=== PATIENT | female | born 1975 | race Caucasian/White ===

== ENCOUNTER 2016-08-25 19:41 | Inpatient (IN) | payer MEDICAID ==
[~2016-08-25] VITALS: Ht 157.5 cm; Wt 90.7 kg
[2016-08-25 20:37] LABS: BASOPHILS 0.5 % (0-2); EOSINOPHILS 1.2 % (0-7); HEMATOCRIT 46.5 % (36.0-48.0); HEMOGLOBIN 16.2 g/dL (12-16); IMMATURE GRANULOCYTES 0.4 % (0-5); LYMPHOCYTES 18.9 % (15-50); MCH 31.4 pg (26.0-34.0); MCHC 34.8 g/dL (31.0-37.0); MCV 90.1 fL (80.0-100.0); MEAN PLATELET VOLUME 11.2 fL (7.4-10.4); MONOCYTES 3.4 % (2-11); NEUTROPHILS 75.6 % (40-80); PLATELET COUNT 309 10x3/uL (130-400); RBC 5.16 10x6/uL (4.00-5.40); RDW 11.6 % (11.5-14.5); WBC 15.5 10x3/uL (4.8-10.8)
[2016-08-25 20:43] LABS: KETONE - SERUM NEGATIVE (NEGATIVE)
[2016-08-25 20:51] LABS: ALBUMIN 3.5 g/dL (3.4-5.0); ALKALINE PHOSPHATASE 137 U/L (46-116); ALT (SGPT) 17 U/L (10-68); BILIRUBIN - TOTAL 0.82 mg/dL (0.2-1.3); CALC OSMOLALITY 292 mosm/kg (275-300); CALCIUM 9.3 mg/dL (8.5-10.1); CARBON DIOXIDE 28.1 mmol/L (21.0-32.0); CHLORIDE - SERUM 96 mmol/L (98-107); CREATININE - SERUM 1.4 mg/dL (0.6-1.3); MAGNESIUM - SERUM 1.6 mg/dL (1.8-2.4); POTASSIUM - SERUM 4.1 mmol/L (3.5-5.1); PROTEIN - SERUM 7.9 g/dL (6.4-8.2); SODIUM 135 mmol/L (136-145); UREA NITROGEN 16 mg/dL (7-18); eGFR NON AFRICAN AMERICAN 44 mL/min (90-120)
[2016-08-25 20:59] LABS: GLUCOSE 499 mg/dL (74-106)
[2016-08-25 21:13] LABS: APPEARANCE HAZY (CLEAR); BILIRUBIN NEGATIVE (NEGATIVE); COLOR YELLOW (YELLOW); GLUCOSE 1000 mg/dL (NEGATIVE); KETONE LARGE mg/dL (NEGATIVE); LEUKOCYTE ESTERASE 2+ (NEGATIVE); NITRITE NEGATIVE (NEGATIVE); PROTEIN NEGATIVE (NEGATIVE); SPECIFIC GRAVITY 1.015 (1.005-1.020); UROBILINOGEN NORMAL (NORMAL)
[2016-08-25 21:15] LABS: BACTERIA MANY /hpf (NONE SEEN); MUCUS <1+ /lpf (NONE SEEN); RED CELLS - URINE 0-5 /hpf (0-5)
--- NOTE | 2016-08-26 01:45 | NUR ---
NOTIFIED BY PATIENT'S NIECE THAT THE PATIENT HAS BEEN LIVING WITH FAMILY WHO IS UNABLE TO TAKE CARE OF HER AT THIS TIME. THE PATIENT'S NIECE STATED THAT SHE GOES TO THE HOUSE OFTEN SHE CAN AND MAKE'S IT A POINT TO GO THERE EVERY THURSDAY, HOWEVER, FEELS THAT IT IS NOT ENOUGH. THE NIECE HAS WITNESSED THE PATIENT UNBATHED FOR SEVERAL MONTHS AT A TIME AND HAS BEEN COVERED IN "ROACHES AND MAGGOTS" UPON THE NIECE'S ARRIVAL. THE PATIENT AND THE NIECE ARE HOPING THAT THE PATIENT WILL BE PLACED IN A FPC FOR THE PATIENT TO RECEIVE THE HELP THAT SHE NEEDS.
[2016-08-26 04:31] VITALS: BP 101/64; BMI 36.6
--- NOTE | 2016-08-26 07:30 | NUR ---
RECIEVED PT DURING WALKING ROUNDS, PT RESTING COMFORTABLY IN BED WITH NO COMPLAINTS OF PAIN OR DISCOMFORT AT THIS TIME. ASSESSMENT DONE PER FLOWSHEET. BED IN LOW POSITION AND CALL LIGHT WITHIN REACH. WILL CONTINUE TO MONITOR.
[2016-08-26 09:30] VITALS: BP 110/49
[2016-08-26 09:34] LABS: BILIRUBIN - TOTAL 0.37 mg/dL (0.2-1.3); CALCIUM 8.8 mg/dL (8.5-10.1); CARBON DIOXIDE 26.6 mmol/L (21.0-32.0); PROTEIN - SERUM 6.2 g/dL (6.4-8.2)
[2016-08-26 09:35] LABS: ALBUMIN 2.6 g/dL (3.4-5.0); ANION GAP 11.4 mmol/L (8-16); BASOPHILS 0.7 % (0-2); CREATININE - SERUM 0.9 mg/dL (0.6-1.3); HEMATOCRIT 40.9 % (36.0-48.0); IMMATURE GRANULOCYTES 0.2 % (0-5); LYMPHOCYTES 47.3 % (15-50); MCH 30.9 pg (26.0-34.0); MCHC 34.2 g/dL (31.0-37.0); MCV 90.3 fL (80.0-100.0); MEAN PLATELET VOLUME 10.8 fL (7.4-10.4); MONOCYTES 4.3 % (2-11); NEUTROPHILS 44.5 % (40-80); PLATELET COUNT 264 10x3/uL (130-400); RBC 4.53 10x6/uL (4.00-5.40); RDW 11.5 % (11.5-14.5); WBC 9.9 10x3/uL (4.8-10.8)
--- NOTE | 2016-08-26 09:50 | NUR ---
ADMINISTERED ATIVAN PER ORDER FOR ANXIETY. PT TOLERATED WELL. BED IN LOW POSITION AND CALL LIGHT WITHIN REACH. WILL CONTINUE TO MONITOR.
[2016-08-26 13:54] VITALS: BP 110/50
[2016-08-26 16:23] VITALS: BP 120/54
[2016-08-26 16:56] LABS: UDS - AMPHET NEGATIVE QUAL (NEGATIVE); UDS - BARB NEGATIVE QUAL (NEGATIVE); UDS - BENZO NEGATIVE QUAL (NEGATIVE); UDS - COCAINE NEGATIVE QUAL (NEGATIVE); UDS - METH NEGATIVE QUAL (NEGATIVE); UDS - OPIATE NEGATIVE QUAL (NEGATIVE); UDS - PCP NEGATIVE QUAL (NEGATIVE); UDS - THC NEGATIVE QUAL (NEGATIVE)
[2016-08-26 20:00] VITALS: BP 100/55
--- NOTE | 2016-08-27 02:52 | NUR ---
PATIENT RESTING WITH EYES CLOSED AND NO VISIBLE SIGNS OF DISTRESS. BED IN LOWEST POSITION AND CALL LIGHT WITHIN REACH.
--- NOTE | 2016-08-27 03:34 | NUR ---
PATIENT WAS GIVEN A FULL BED BATH. BUTTOCKS WERE REDDENED AND BLANCHABLE, BUTT PASTE WAS APPLIED. MULTIPLE SORES NOTED, MOSTLY ON THE LEFT HIP/THIGH AREA. SKIN WAS RED AND CRACKING UNDER THE LEFT BREAST AND STARTING IN THE ABDOMINAL FOLDS.
[2016-08-27 04:00] VITALS: BP 119/77
[2016-08-27 06:34] LABS: BASOPHILS 0.6 % (0-2); EOSINOPHILS 2.4 % (0-7); HEMATOCRIT 39.1 % (36.0-48.0); HEMOGLOBIN 13.3 g/dL (12-16); IMMATURE GRANULOCYTES 0.2 % (0-5); LYMPHOCYTES 34.7 % (15-50); MCH 30.8 pg (26.0-34.0); MCV 90.5 fL (80.0-100.0); MONOCYTES 4.2 % (2-11); NEUTROPHILS 57.9 % (40-80); PLATELET COUNT 215 10x3/uL (130-400); RBC 4.32 10x6/uL (4.00-5.40); RDW 11.4 % (11.5-14.5); WBC 9.1 10x3/uL (4.8-10.8)
[2016-08-27 06:57] LABS: ALBUMIN 2.4 g/dL (3.4-5.0); ALKALINE PHOSPHATASE 85 U/L (46-116); ALT (SGPT) 12 U/L (10-68); CALCIUM 8.1 mg/dL (8.5-10.1); CHLORIDE - SERUM 106 mmol/L (98-107); CREATININE - SERUM 0.7 mg/dL (0.6-1.3); PROTEIN - SERUM 5.7 g/dL (6.4-8.2); SODIUM 138 mmol/L (136-145); UREA NITROGEN 12 mg/dL (7-18); eGFR NON AFRICAN AMERICAN > 90 mL/min (90-120)
[2016-08-27 07:04] LABS: CALC OSMOLALITY 282 mosm/kg (275-300); GLUCOSE 223 mg/dL (74-106); POTASSIUM - SERUM 3.9 mmol/L (3.5-5.1)
--- NOTE | 2016-08-27 07:30 | NUR ---
RECIEVED PT DURING WALKING ROUNDS. PT RESTING IN BED WITH COMPLAINTS OF PAIN OF A 8 ON SCALE OF 1-10. MEDICATION TO BE GIVEN PER ORDER. ASSESSMENT DONE PER FLOWSHEET. BED IN LOW POSITION AND CALL LIGHT WITHIN REACH. WILL CONTINUE TO MONITOR.
[2016-08-27 08:51] VITALS: BP 121/73
--- NOTE | 2016-08-27 10:05 | NUR ---
PT COMPLAINS OF CHEST PAIN AT THIS TIME, AND THAT SHE FELT THAT HER ANXIETY WAS GETTING WORSE, INFORMED PT THE NEED TO TAKE SLOW DEEP BREATHS AND TRY TO RELAX, INFORMED ELISEO CUMMINS AND DR. MELTON OF THIS AND THEY STATED THAT THEY WOULD BE AROUND TO SEE THE PT SOON. AFTER DEEP BREATHING PT WAS ABLE TO CALM DOWN SOME AND STATED SOME RELIEF. BED IN LOW POSITION AND CALL LIGHT WITHIN REACH. WILL CONTINUE TO MONITOR.
--- NOTE | 2016-08-27 12:30 | NUR ---
PT ASKED AGAIN AT THIS TIME FOR SOMETHING FOR MUSCLE SPASMS, INFORMED PT THAT I HAD ALREADY ASKED THE DOCTOR FOR MEDICATION AND THEN SHE INFORMED ME THAT SHE SPOKE WITH THE DOCTOR ABOUT IT ALSO WHEN THEY ROUNDED. INFORMED MU GARCIA RN. WILL CONTINUE TO MONITOR.
[2016-08-27 13:43] VITALS: Ht 157.5 cm; Wt 90.7 kg
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
[2016-08-27 16:38] VITALS: BP 93/61
[2016-08-27 20:00] VITALS: BP 110/69
[2016-08-28 04:00] VITALS: BP 109/59
[2016-08-28 05:30] LABS: BASOPHILS 0.7 % (0-2); EOSINOPHILS 2.7 % (0-7); HEMOGLOBIN 13.6 g/dL (12-16); IMMATURE GRANULOCYTES 0.4 % (0-5); LYMPHOCYTES 32.2 % (15-50); MCH 30.6 pg (26.0-34.0); MCV 90.1 fL (80.0-100.0); MONOCYTES 5.4 % (2-11); NEUTROPHILS 58.6 % (40-80); PLATELET COUNT 228 10x3/uL (130-400); RBC 4.44 10x6/uL (4.00-5.40); RDW 11.4 % (11.5-14.5); WBC 8.5 10x3/uL (4.8-10.8)
[2016-08-28 06:14] LABS: ALBUMIN 2.6 g/dL (3.4-5.0); ALKALINE PHOSPHATASE 87 U/L (46-116); ALT (SGPT) 13 U/L (10-68); CALC OSMOLALITY 283 mosm/kg (275-300); CALCIUM 8.7 mg/dL (8.5-10.1); CARBON DIOXIDE 27.7 mmol/L (21.0-32.0); CHLORIDE - SERUM 106 mmol/L (98-107); CREATININE - SERUM 0.7 mg/dL (0.6-1.3); GLUCOSE 185 mg/dL (74-106); POTASSIUM - SERUM 3.9 mmol/L (3.5-5.1); PROTEIN - SERUM 6.1 g/dL (6.4-8.2); SODIUM 141 mmol/L (136-145); eGFR NON AFRICAN AMERICAN > 90 mL/min (90-120)
[2016-08-28 06:17] LABS: UREA NITROGEN 7 mg/dL (7-18)
--- NOTE | 2016-08-28 07:30 | NUR ---
RESTING QUIETLY IN BED WITH EYES CLOSED. RESP EVEN,NONLABORED.
[2016-08-28 08:26] VITALS: BP 100/55
--- NOTE | 2016-08-28 09:15 | NUR ---
ASSESSMENT COMPLETE. IV TO L AC PATENT. CONTACT ISOLATION. WEAKNESS NOTED TO L LEG AND PARALYSIS NOTED TO L ARM. SCD'S IN USE TO BILAT LEGS. SCABBED AREAS NOTED TO BILAT ARMS AND LEGS. DENIES ANY NEEDS AT PRESENT.
--- NOTE | 2016-08-28 12:00 | NUR ---
RESTING QUIETLY IN BED.
[2016-08-28 12:46] VITALS: BP 113/67
--- NOTE | 2016-08-28 14:45 | NUR ---
COMPLAINING OF GENERALIZED PAIN. TYLENOL GIVEN.
[2016-08-28 16:11] VITALS: BP 119/62
--- NOTE | 2016-08-28 18:57 | NUR ---
RESTING QUIETLY WITH EYES CLOSED.
[2016-08-28 20:00] VITALS: BP 106/53
[2016-08-29] VITALS: BP 99/65
[2016-08-29 04:00] VITALS: BP 108/72
--- NOTE | 2016-08-29 04:47 | NUR ---
ASSESSED AT THE BEGINNING OF THE SHIFT. PT IS ALERT AND ORIENTED, ABLE TO VERBALIZE NEEDS. SHE IS CONSTANTLY ON THE CALL LIGHT FOR ONE THING OR ANOTHER. SHE HAS ASKED AND RECEIVED ATIVAN TWO TIMES DURING THE SHIFT AND TYLENOL ONCE. SHE IS WEAK ON THE LEFT SIDE AND HAS TO HAE ALOT OF ASSIST TO DO THINGS. WE HAVE BEEN PUTTING HER ON THE BEDPAN NEEDED AND SHE IS MOVING ABOUT IN THE BED BY HERSELF. THE BED IS LOW, RAILS UP X'S 2 WITH THE CALL LIGHT AT HAND.
[2016-08-29 05:19] LABS: BASOPHILS 0.6 % (0-2); EOSINOPHILS 3.1 % (0-7); HEMOGLOBIN 13.4 g/dL (12-16); IMMATURE GRANULOCYTES 0.2 % (0-5); LYMPHOCYTES 35.1 % (15-50); MCH 30.5 pg (26.0-34.0); MCHC 33.5 g/dL (31.0-37.0); MCV 90.9 fL (80.0-100.0); MEAN PLATELET VOLUME 11.1 fL (7.4-10.4); MONOCYTES 4.9 % (2-11); NEUTROPHILS 56.1 % (40-80); PLATELET COUNT 238 10x3/uL (130-400); RDW 11.5 % (11.5-14.5); WBC 8.7 10x3/uL (4.8-10.8)
[2016-08-29 05:33] LABS: ALBUMIN 2.6 g/dL (3.4-5.0); ALKALINE PHOSPHATASE 87 U/L (46-116); ALT (SGPT) 14 U/L (10-68); BILIRUBIN - TOTAL 0.18 mg/dL (0.2-1.3); CALC OSMOLALITY 279 mosm/kg (275-300); CALCIUM 8.8 mg/dL (8.5-10.1); CARBON DIOXIDE 26.1 mmol/L (21.0-32.0); CHLORIDE - SERUM 104 mmol/L (98-107); CREATININE - SERUM 0.8 mg/dL (0.6-1.3); GLUCOSE 206 mg/dL (74-106); PROTEIN - SERUM 6.3 g/dL (6.4-8.2); SODIUM 137 mmol/L (136-145); eGFR NON AFRICAN AMERICAN 84 mL/min (90-120)
[2016-08-29 05:36] LABS: UREA NITROGEN 12 mg/dL (7-18)
--- NOTE | 2016-08-29 07:30 | NUR ---
RESTING QUIETLY WITH EYES CLOSED. RESP EVEN,NONLABORED.
[2016-08-29 07:59] VITALS: BP 103/58
--- NOTE | 2016-08-29 10:00 | NUR ---
ASSESSEMENT COMPLETE. IV TO L AC PATENT. NS INFUSING AT 100 CC/HR VIA PUMP. LEFT SIDED WEAKNESS. SCABBED AREAS NOTED TO BILAT ARMS AND LEGS. SCDS IN USE TO BILAT LEGS.
[2016-08-29 12:00] VITALS: BP 99/66
--- NOTE | 2016-08-29 12:30 | NUR ---
ASSISTED BACK TO BED. DENIES ANY NEEDS AT PRESENT.
--- NOTE | 2016-08-29 13:39 | NUR ---
RECEIVED DONA STATING THAT THEY HAVE TO DO A PASRR/LEVEL SCREENING II. NOTIFIED MYLA AND PATIENT OF ABOVE
[2016-08-29 16:12] VITALS: BP 90/60
--- NOTE | 2016-08-29 17:59 | NUR ---
RESTING QUIETLY AT THIS TIME.
[2016-08-29 20:00] VITALS: BP 106/63
[2016-08-30] VITALS: BP 110/66
[2016-08-30 04:00] VITALS: BP 107/72
--- NOTE | 2016-08-30 04:28 | NUR ---
ASSESSED AT THE BEGINNING OF THE SHIFT. PT IS ALERT AND ORIENTED, ABLE TO VERBALIZE NEEDS. SHE HAS BEEN ON HER CALL LIGHT MANY TIMES DURING THE SHIFT. SOME TIMES IT IS FOR PAIN MEDS, DRINKS, QUESTIONS, FOOD, SUPPLIES AND THE BED [place]. SHE HAS RECEIVED ATIVAN 2 TIMES AND AT THIS TIME SHE IS WATCHING THE FOOD NETWORK WAITING FOR BREAKFAST TIME. THE BED IS LOW, RAILS UP X'S 2 WITH THE CALL LIGHT AT HAND.
[2016-08-30 05:28] LABS: HEMATOCRIT 39.9 % (36.0-48.0); HEMOGLOBIN 13.1 g/dL (12-16); IMMATURE GRANULOCYTES 0.3 % (0-5); LYMPHOCYTES 31.7 % (15-50); MCH 30.2 pg (26.0-34.0); MCHC 32.8 g/dL (31.0-37.0); MCV 91.9 fL (80.0-100.0); MONOCYTES 5.4 % (2-11); NEUTROPHILS 57.6 % (40-80); PLATELET COUNT 236 10x3/uL (130-400); RBC 4.34 10x6/uL (4.00-5.40); RDW 11.6 % (11.5-14.5); WBC 9.2 10x3/uL (4.8-10.8)
[2016-08-30 05:54] LABS: ALBUMIN 2.7 g/dL (3.4-5.0); ALKALINE PHOSPHATASE 95 U/L (46-116); ALT (SGPT) 16 U/L (10-68); CALC OSMOLALITY 282 mosm/kg (275-300); CALCIUM 8.9 mg/dL (8.5-10.1); CARBON DIOXIDE 24.7 mmol/L (21.0-32.0); CHLORIDE - SERUM 103 mmol/L (98-107); CREATININE - SERUM 0.8 mg/dL (0.6-1.3); GLUCOSE 298 mg/dL (74-106); POTASSIUM - SERUM 4.2 mmol/L (3.5-5.1); PROTEIN - SERUM 6.3 g/dL (6.4-8.2); SODIUM 136 mmol/L (136-145); UREA NITROGEN 13 mg/dL (7-18); eGFR NON AFRICAN AMERICAN 84 mL/min (90-120)
--- NOTE | 2016-08-30 07:52 | NUR ---
RESTING, BREATHING EVEN UNLABORED, BED LOWEST POSITION, CALL LIGHT IN REACH, WILL CONTINUE TO MONITOR
[2016-08-30 07:54] VITALS: BP 108/70
--- NOTE | 2016-08-30 08:03 | NUR ---
SLEEPING ON LEFT SIDE.PT WITHOUT DISTRESS.CALL LIGHT IN REACH
[2016-08-30 12:39] VITALS: BP 108/64
[2016-08-30 15:30] VITALS: BP 106/74
[2016-08-30 20:00] VITALS: BP 95/80
--- NOTE | 2016-08-30 23:03 | NUR ---
ASSESSED AT THE BEGINNING OF THE SHIFT. PT WAS ASLEEP AT THAT TIME BUT AFTER BEING AWAKENED SHE HAS TAKEN HER MEDS AND ALSO RECEIVED HER FLEXERIL AND ATIVAN WHICH SHE WAS ASKING FOR. SHE HAS BEEN INCONT. ONCE AND CHANGED BUT THEN VOIDED IN THE BEDPAN TWO TIMES AFTER THAT. HER LEFT ARM REMAINS FLACCID AND SHE HAS LIMITED MOVEMENT OF HER LEFT LEG. AFTER RECEIVING HER INSULIN FOR THE NIGHT SHE REQUESTED A SANDWICH TRAY AND DRINK. THE BED IS LOW, RAILS UP X'S 2 WITH THE CALL LIGHT AT HAND.
[2016-08-31] VITALS: BP 111/63
[2016-08-31 04:00] VITALS: BP 103/66
[2016-08-31 05:37] LABS: BASOPHILS 0.9 % (0-2); EOSINOPHILS 4.2 % (0-7); HEMATOCRIT 39.8 % (36.0-48.0); HEMOGLOBIN 13.1 g/dL (12-16); IMMATURE GRANULOCYTES 0.2 % (0-5); LYMPHOCYTES 31.1 % (15-50); MCH 30.3 pg (26.0-34.0); MCHC 32.9 g/dL (31.0-37.0); MCV 91.9 fL (80.0-100.0); MEAN PLATELET VOLUME 10.9 fL (7.4-10.4); MONOCYTES 5.2 % (2-11); NEUTROPHILS 58.4 % (40-80); PLATELET COUNT 221 10x3/uL (130-400); RBC 4.33 10x6/uL (4.00-5.40); RDW 11.6 % (11.5-14.5); WBC 8.4 10x3/uL (4.8-10.8)
[2016-08-31 06:00] LABS: ALBUMIN 2.8 g/dL (3.4-5.0); ALKALINE PHOSPHATASE 79 U/L (46-116); ALT (SGPT) 17 U/L (10-68); CALC OSMOLALITY 282 mosm/kg (275-300); CARBON DIOXIDE 28.5 mmol/L (21.0-32.0); CHLORIDE - SERUM 103 mmol/L (98-107); CREATININE - SERUM 0.8 mg/dL (0.6-1.3); POTASSIUM - SERUM 3.7 mmol/L (3.5-5.1); PROTEIN - SERUM 6.2 g/dL (6.4-8.2); SODIUM 138 mmol/L (136-145); UREA NITROGEN 14 mg/dL (7-18); eGFR NON AFRICAN AMERICAN 84 mL/min (90-120)
[2016-08-31 06:03] LABS: GLUCOSE 206 mg/dL (74-106)
--- NOTE | 2016-08-31 07:00 | NUR ---
PATIENT IN LOW GARCIA POSITION RESTING QUIETLY. RESPIRATIONS EVEN AND UNLABORED. SIDE RAILS UP X2. BED IN LOW POSITION. CALL LIGHT IN REACH.
--- NOTE | 2016-08-31 07:35 | NUR ---
A&O, DENIES NEEDS, BED LOWEST POSITION, CALL LIGHT IN REACH, WILL CONTINUE TO MONITOR
[2016-08-31 08:59] VITALS: BP 104/70
[2016-08-31 11:23] VITALS: BP 103/57
[2016-08-31 15:11] VITALS: BP 110/68
[2016-08-31 19:00] VITALS: BP 97/64
--- NOTE | 2016-08-31 20:00 | NUR ---
REC'D IN BED AWAKE AND ALERT. RESP EVEN AND UNLABORED WITH NO DISTTRESS NOTED. CAN EXPRESS NEEDS AND WANTS. TAKE ALL PO MEDS WHOLE AND WITHOUT DIFFICULTY NOTED. ASSESSMENT COMPLETED. LEFT SIDE WEAKNESS NOTED. C/L IN REACH AT BEDSIDE.
[2016-09-01] VITALS: BP 102/66
[2016-09-01 04:00] VITALS: BP 104/67
[2016-09-01 07:29] VITALS: BP 112/62
--- NOTE | 2016-09-01 09:00 | NUR ---
ASSESSMENT COMPLETE. IV TO L AC PATENT. NS INFUSING AT 125 CC/HR VIA PUMP. L SIDED WEAKNESS. DENIES ANY NEEDS AT THIS TIME.
[2016-09-01 10:00] LABS: BASOPHILS 0.7 % (0-2); EOSINOPHILS 3.5 % (0-7); HEMATOCRIT 37.5 % (36.0-48.0); HEMOGLOBIN 12.3 g/dL (12-16); IMMATURE GRANULOCYTES 0.4 % (0-5); LYMPHOCYTES 30.4 % (15-50); MCH 30.4 pg (26.0-34.0); MCHC 32.8 g/dL (31.0-37.0); MCV 92.8 fL (80.0-100.0); MEAN PLATELET VOLUME 10.5 fL (7.4-10.4); MONOCYTES 4.4 % (2-11); NEUTROPHILS 60.6 % (40-80); PLATELET COUNT 209 10x3/uL (130-400); RBC 4.04 10x6/uL (4.00-5.40); RDW 11.7 % (11.5-14.5); WBC 8.5 10x3/uL (4.8-10.8)
[2016-09-01 10:20] LABS: ALBUMIN 2.5 g/dL (3.4-5.0); ALKALINE PHOSPHATASE 85 U/L (46-116); ALT (SGPT) 18 U/L (10-68); BILIRUBIN - TOTAL 0.21 mg/dL (0.2-1.3); CALC OSMOLALITY 290 mosm/kg (275-300); CALCIUM 8.4 mg/dL (8.5-10.1); CARBON DIOXIDE 28.3 mmol/L (21.0-32.0); CHLORIDE - SERUM 106 mmol/L (98-107); CREATININE - SERUM 0.8 mg/dL (0.6-1.3); GLUCOSE 240 mg/dL (74-106); POTASSIUM - SERUM 3.7 mmol/L (3.5-5.1); PROTEIN - SERUM 5.8 g/dL (6.4-8.2); SODIUM 142 mmol/L (136-145); UREA NITROGEN 12 mg/dL (7-18); eGFR NON AFRICAN AMERICAN 84 mL/min (90-120)
[2016-09-01 11:34] VITALS: BP 116/68
--- NOTE | 2016-09-01 12:00 | NUR ---
RESTING QUIETLY WITH EYES CLOSED. RESP EVEN,NONLABORED.
--- NOTE | 2016-09-01 12:21 | NUR ---
NUTRITION MONITORING & EVAL CHART REVIEWED. PT TOLERATING ADA DIET WITH 100% INTAKE RECENT MEALS. RD FOLLOWING
--- NOTE | 2016-09-01 14:45 | NUR ---
NO CHANGES NOTED AT PRESENT.
[2016-09-01 15:19] VITALS: BP 118/66
--- NOTE | 2016-09-01 17:20 | NUR ---
COMPLAINING OF NAUSEA AND ABDOMINAL PAIN. ZOFRAN GIVEN SLOW IVP.
[2016-09-01 20:56] VITALS: BP 108/76
--- NOTE | 2016-09-02 00:22 | NUR ---
1930)REC'D IN BED REQUESTING NAUSEA MED.INSTRUCTED TOO SOON HAD LAST AT 1730 VOICES UNDERSTANDING. NO EMESIS SEEN. WILL CONTINUE TO OBSERVE FOR ANY CHGES AND FOLLOW CURRENT OF CARE
[2016-09-02 04:00] VITALS: BP 110/62
[2016-09-02 05:23] LABS: BASOPHILS 0.9 % (0-2); EOSINOPHILS 3.2 % (0-7); HEMATOCRIT 39.2 % (36.0-48.0); IMMATURE GRANULOCYTES 0.3 % (0-5); LYMPHOCYTES 21.2 % (15-50); MCH 30.6 pg (26.0-34.0); MCHC 33.2 g/dL (31.0-37.0); MCV 92.2 fL (80.0-100.0); MEAN PLATELET VOLUME 10.8 fL (7.4-10.4); MONOCYTES 5.6 % (2-11); NEUTROPHILS 68.8 % (40-80); PLATELET COUNT 230 10x3/uL (130-400); RBC 4.25 10x6/uL (4.00-5.40); RDW 11.8 % (11.5-14.5); WBC 9.3 10x3/uL (4.8-10.8)
[2016-09-02 05:45] LABS: ALBUMIN 2.6 g/dL (3.4-5.0); BILIRUBIN - TOTAL 0.21 mg/dL (0.2-1.3); CALCIUM 8.8 mg/dL (8.5-10.1); CREATININE - SERUM 0.9 mg/dL (0.6-1.3); PROTEIN - SERUM 6.2 g/dL (6.4-8.2)
[2016-09-02 05:46] LABS: ANION GAP 9.5 mmol/L (8-16); POTASSIUM - SERUM 4.5 mmol/L (3.5-5.1)
--- NOTE | 2016-09-02 07:30 | NUR ---
ASSESSMENT COMPLETE. IV TO L FA PATENT. NS INFUSING AT 125 CC/HR VIA PUMP. L SIDED WEAKNESS. DENIES ANY NEEDS AT PRESENT.
[2016-09-02 08:08] VITALS: BP 95/62
--- NOTE | 2016-09-02 10:20 | NUR ---
SITTING UP IN CHAIR. COMPLAINING OF NAUSEA. ZOFRAN GIVEN SLOW IVP.
[2016-09-02 12:00] VITALS: BP 107/67
--- NOTE | 2016-09-02 14:06 | NUR ---
NADIA RECEIVED A CALL FROM LYLA DESOUZA WILL BE HERE FROM 3:30 TO 4:00 I LET THE PATIENT KNOW AND ATTEMPTED TO CALL MYLA AT [place] [id number] WITHOUT ANY LUCK. I HAVE PRINTED THE RECORDS REQUESTED.NADIA WILL CONTINUE TO FOLLOW AND ASSIST
--- NOTE | 2016-09-02 15:43 | NUR ---
TYLENOL GIVEN FOR COMPLAINT OF HEADACHE. DENIES ANY FURTHER NEEDS AT THIS TIME.
--- NOTE | 2016-09-02 16:08 | NUR ---
Beverley Castillo with [facility] here speaking with patient
[2016-09-02 16:32] VITALS: BP 110/64
--- NOTE | 2016-09-02 17:00 | NUR ---
NO CHANGES NOTED AT PRESENT.
[2016-09-02 20:00] VITALS: BP 110/63
[2016-09-03] VITALS: BP 117/63
--- NOTE | 2016-09-03 00:30 | NUR ---
2010)REC'D IN BED EYES CLOSED RESP. DEEP AND EVEN.WILL CONTINUE TO MONITOR FOR ANY CHGES. AND FOLLOW CURRENT PLAN OF CARE
--- NOTE | 2016-09-03 00:37 | NUR ---
EYES CLOSED RESPIRATIONS WITH EASE AND UNLABORED.
[2016-09-03 04:00] VITALS: BP 109/67
[2016-09-03 05:17] LABS: BASOPHILS 0.6 % (0-2); EOSINOPHILS 3.1 % (0-7); HEMATOCRIT 40.7 % (36.0-48.0); HEMOGLOBIN 13.5 g/dL (12-16); IMMATURE GRANULOCYTES 0.2 % (0-5); LYMPHOCYTES 27.9 % (15-50); MCH 30.5 pg (26.0-34.0); MCHC 33.2 g/dL (31.0-37.0); MCV 92.1 fL (80.0-100.0); MEAN PLATELET VOLUME 10.9 fL (7.4-10.4); MONOCYTES 5.6 % (2-11); NEUTROPHILS 62.6 % (40-80); PLATELET COUNT 259 10x3/uL (130-400); RBC 4.42 10x6/uL (4.00-5.40); RDW 11.9 % (11.5-14.5); WBC 8.4 10x3/uL (4.8-10.8)
[2016-09-03 05:43] LABS: ALBUMIN 2.9 g/dL (3.4-5.0); ALKALINE PHOSPHATASE 91 U/L (46-116); BILIRUBIN - TOTAL 0.31 mg/dL (0.2-1.3); CALCIUM 8.7 mg/dL (8.5-10.1); CARBON DIOXIDE 29.2 mmol/L (21.0-32.0); CHLORIDE - SERUM 104 mmol/L (98-107); CREATININE - SERUM 0.7 mg/dL (0.6-1.3); PROTEIN - SERUM 6.8 g/dL (6.4-8.2); SODIUM 142 mmol/L (136-145); UREA NITROGEN 6 mg/dL (7-18); eGFR NON AFRICAN AMERICAN > 90 mL/min (90-120)
[2016-09-03 05:45] LABS: ALT (SGPT) 29 U/L (10-68); CALC OSMOLALITY 284 mosm/kg (275-300); GLUCOSE 172 mg/dL (74-106); POTASSIUM - SERUM 3.7 mmol/L (3.5-5.1)
[2016-09-03 08:01] VITALS: BP 108/63
--- NOTE | 2016-09-03 08:50 | NUR ---
BLOOD SUGAR 53 AT THIS TIME. LANTUS HELD AND PT ADJUSTED SO THAT SHE COULD EAT BREAKFAST. LINEN CHANGED AND DEVONTE CARE PROVIDED FOR INCONTINENT EPISODE OF URINE. IV TO LEFT AC PATENT. PRN TYLENOL ADMINISTERED FOR HEADACHE. CALL LIGHT IN REACH, WILL CONTINUE WITH PLAN OF CARE.
--- NOTE | 2016-09-03 11:10 | NUR ---
BLOOD SUGAR 260 AT THIS TIME. PT REMAINS DRY. DENIES NEEDS. DEJON MAT ALARM IN USE AND CALL LIGHT IN REACH, WILL CONTINUE WITH PLAN OF CARE.
[2016-09-03 11:54] VITALS: BP 106/66
--- NOTE | 2016-09-03 13:55 | NUR ---
NADIA SPOKE WITH TAMELA WITH [facility] AND SHE STATED THAT THE PAPERWORK WAS SENT TO THE MD TODAY AND SHOULD KNOW SOMETHING TOMORROW. I CALLED MYLA AT [facility] AND GAVE HER AN UPDATE. NADIA WILL CONTINUE TO FOLLOW AND ASSIST
[2016-09-03 16:30] VITALS: BP 105/61
[2016-09-03 19:00] VITALS: BP 99/61
--- NOTE | 2016-09-03 20:00 | NUR ---
ASSESSMENT PER FLOWSHEET. LEFT ARM AND LEG FLACCID FROM OLD STROKE. IV PATENT LEFT ARM OF NS AT 100CC'S/HR SITE CLEAR. DEVONTE AREA AND BUTTOCK RED AND EXCORIATED. CALMOSEPTINE CREAM APPLIED. ALERT/ORIENTED.
--- NOTE | 2016-09-03 21:15 | NUR ---
IV PULLED OUT RESITED TO RT FOREARM #22G. ANGIOCATH X1 ATTEMPT RESUMED IV FLUIDS. ACDL=183. 12 UNITS HUMALOG INSULIN GIVEN PER S/S.ROUTINE DOSE OF LANTUS GIVEN SUBC TO RT ABDOMEN.
--- NOTE | 2016-09-04 | NUR ---
AWAKE WATCHING TV INC URINE LINENS CHANGED. PT CONSTANTLY EATING SNACKS.
[2016-09-04 04:00] VITALS: BP 117/68
[2016-09-04 06:52] LABS: BASOPHILS 0.9 % (0-2); EOSINOPHILS 2.8 % (0-7); HEMATOCRIT 42.6 % (36.0-48.0); HEMOGLOBIN 14.1 g/dL (12-16); IMMATURE GRANULOCYTES 0.2 % (0-5); LYMPHOCYTES 29.5 % (15-50); MCH 30.7 pg (26.0-34.0); MCHC 33.1 g/dL (31.0-37.0); MCV 92.6 fL (80.0-100.0); MEAN PLATELET VOLUME 10.5 fL (7.4-10.4); NEUTROPHILS 60.6 % (40-80); PLATELET COUNT 271 10x3/uL (130-400); WBC 9.2 10x3/uL (4.8-10.8)
[2016-09-04 07:14] LABS: ALBUMIN 3.1 g/dL (3.4-5.0); ALKALINE PHOSPHATASE 102 U/L (46-116); ALT (SGPT) 36 U/L (10-68); BILIRUBIN - TOTAL 0.27 mg/dL (0.2-1.3); CALC OSMOLALITY 284 mosm/kg (275-300); CALCIUM 9.7 mg/dL (8.5-10.1); CARBON DIOXIDE 30.3 mmol/L (21.0-32.0); CHLORIDE - SERUM 101 mmol/L (98-107); CREATININE - SERUM 0.8 mg/dL (0.6-1.3); GLUCOSE 217 mg/dL (74-106); POTASSIUM - SERUM 3.9 mmol/L (3.5-5.1); PROTEIN - SERUM 7.5 g/dL (6.4-8.2); SODIUM 140 mmol/L (136-145); eGFR NON AFRICAN AMERICAN 84 mL/min (90-120)
[2016-09-04 07:15] LABS: UREA NITROGEN 10 mg/dL (7-18)
--- NOTE | 2016-09-04 07:20 | NUR ---
AWAKE AND ALERT AT THIS TIME. DENIES NEEDS AND REMAINS DRY. CALL LIGHT IN REACH AND DEJON MAT ALARM IN USE. WILL CONTINUE WITH PLAN OF CARE.
[2016-09-04 08:25] VITALS: BP 116/68
--- NOTE | 2016-09-04 08:34 | NUR ---
SCHEDULED MEDICATIONS ADMINISTERED AT THIS TIME. ASSISTED PT ONTO BEDPAN. BOTTOM AND DEVONTE AREA EXCORIATED DUE TO INTERMITTENT EXCORIATION. ASSESSMENT PERFORMED PER FLOWSHEET. CALL LIGHT IN REACH, WILL CONTINUE WITH PLAN OF CARE.
[2016-09-04] MEDS ORDERED: MIRALAX17 GM PO (10:26)
[2016-09-04] MEDS ORDERED: PROTONIX40 MG PO (10:26)
[2016-09-04] MEDS ORDERED: NICODERM C1 PATCH .1 TRANSDERM (10:26)
[2016-09-04] MEDS ORDERED: ACETAMINOPHEN325 MG PO (10:26)
[2016-09-04] MEDS ORDERED: FLORAJEN3 CAPS460 MG PO (10:26)
[2016-09-04] MEDS ORDERED: LANTUS INSULIN10 ML SC (10:27)
[2016-09-04] MEDS ORDERED: HUMALOG 30100 UNITS/ SC (10:27)
[2016-09-04] MEDS ORDERED: DOXYCYCLINE HY100 M2 PO (10:30)
[2016-09-04] MEDS ORDERED: CYCLOBENZAPRINE10 MG PO (10:32)
--- NOTE | 2016-09-04 11:45 | NUR ---
REPORT CALLED TO CINDY PARNELL AT [facility], [phone]. IV TO RIGHT FOREARM D/C WITH CATH TIP INTACT. PT'S BELONGINGS PACKED AND D/C BY WHEELCHAIR.
--- NOTE | 2016-09-04 13:03 | NUR ---
PATIENT DISCHARGE TODAY TO [facility] TO A MEDICAID BED VIA THEIR FACILITY VAN.
--- NOTE | 2016-09-04 17:22 | NUR ---
LATE ENTRY: CM SPOKE WITH NATALIE NGUYEN/NEEDED PHONE NUMBER TO [facility]. HE THANKED THE HOSPITAL FOR HELPING HIS DAUGHTER.
== END 2016-09-04 11:45 | DRG 638 ==
LOC: D.ER 19:41 → D.MS 23:31
PROVIDERS: Emergency Medicine; Physician Assistant Medical; ADMIT Emergency Medicine
DX: E11.65 Type 2 diabetes mellitus with hyperglycemia (principal); N39.0 Urinary tract infection, site not specified; E87.1 Hypo-osmolality and hyponatremia; F17.203 Nicotine dependence unspecified, with withdrawal; K21.9 Gastro-esophageal reflux disease without esophagitis; F31.9 Bipolar disorder, unspecified; F41.8 Other specified anxiety disorders; F10.20 Alcohol dependence, uncomplicated; F12.10 Cannabis abuse, uncomplicated; L08.9 Local infection of the skin and subcutaneous tissue, unspecified; B95.61 Methicillin susceptible Staphylococcus aureus infection as the cause of diseases classified elsewhere

== ENCOUNTER 2017-05-13 11:21 | Inpatient (IN) | payer MEDICARE ==
[2017-05-13] VITALS (12 sets, daily range): BP systolic 97–130; BP diastolic 67–78; BMI 35.7
[~2017-05-13] VITALS: Ht 157.5 cm; Wt 88.5 kg
[~2017-05-13 11:21] MED LIST: ACETAMINOPHEN325 MG PO; CYCLOBENZAPRINE10 MG PO; DOXYCYCLINE HY100 M2 PO; FLORAJEN3 CAPS460 MG PO; HUMALOG 30100 UNITS/ SC; LANTUS INSULIN10 ML SC; MIRALAX17 GM PO; NICODERM C1 PATCH .1 TRANSDERM; PROTONIX40 MG PO
[2017-05-13 12:54] LABS: HEMATOCRIT 54.4 % (36.0-48.0); HEMOGLOBIN 18.8 g/dL (12-16); MCH 29.4 pg (26.0-34.0); MCHC 34.6 g/dL (31.0-37.0); MCV 85.1 fL (80.0-100.0); MEAN PLATELET VOLUME 12.1 fL (7.4-10.4); PLATELET COUNT 332 10x3/uL (130-400); RBC 6.39 10x6/uL (4.00-5.40); RDW 13.9 % (11.5-14.5); WBC 23.4 10x3/uL (4.8-10.8)
[2017-05-13 12:56] LABS: UDS - AMPHET NEGATIVE QUAL (NEGATIVE); UDS - BARB NEGATIVE QUAL (NEGATIVE); UDS - BENZO NEGATIVE QUAL (NEGATIVE); UDS - COCAINE NEGATIVE QUAL (NEGATIVE); UDS - OPIATE NEGATIVE QUAL (NEGATIVE); UDS - PCP NEGATIVE QUAL (NEGATIVE); UDS - THC NEGATIVE QUAL (NEGATIVE)
[2017-05-13 13:18] LABS: APPEARANCE HAZY (CLEAR); BACTERIA MANY /hpf (NONE SEEN); BILIRUBIN NEGATIVE (NEGATIVE); COLOR YELLOW (YELLOW); EPITHELIAL CELLS 0-5 /hpf (0-5); GLUCOSE 1000 mg/dL (NEGATIVE); HYALINE CAST 0-5 /lpf (NONE SEEN); KETONE LARGE mg/dL (NEGATIVE); NITRITE NEGATIVE (NEGATIVE); PROTEIN TRACE mg/dL (NEGATIVE); SPECIFIC GRAVITY 1.015 (1.005-1.020); UROBILINOGEN NORMAL (NORMAL); WHITE CELLS - URINE 0-5 /hpf (0-5)
[2017-05-13 13:38] LABS: LYMPHOCYTES 7 % (15-50); MONOCYTES 3 % (2-11); NEUTROPHILS 81 % (40-80); PLATELET ESTIMATE NORMAL
[2017-05-13 14:14] LABS: ALBUMIN 3.2 g/dL (3.4-5.0); ALKALINE PHOSPHATASE 165 U/L (46-116); ALT (SGPT) 13 U/L (10-68); BILIRUBIN - TOTAL 0.68 mg/dL (0.2-1.3); CALC OSMOLALITY 309 mosm/kg (275-300); CALCIUM 9.2 mg/dL (8.5-10.1); CARBON DIOXIDE 11.1 mmol/L (21.0-32.0); CHLORIDE - SERUM 95 mmol/L (98-107); CREATINE KINASE 34 UL (21-215); CREATININE - SERUM 2.1 mg/dL (0.6-1.3); MAGNESIUM - SERUM 2.5 mg/dL (1.8-2.4); PRO BNP 304 pg/mL (0-125); PROTEIN - SERUM 7.5 g/dL (6.4-8.2); SODIUM 137 mmol/L (136-145); UREA NITROGEN 41 mg/dL (7-18); eGFR NON AFRICAN AMERICAN 27 mL/min (90-120)
[2017-05-13 14:15] LABS: TROPONIN-I < 0.017 ng/mL (0.000-0.060)
[2017-05-13 14:17] LABS: GLUCOSE 575 mg/dL (74-106); POTASSIUM - SERUM 2.5 mmol/L (3.5-5.1)
[2017-05-13 17:13] LABS: HCG SERUM NEGATIVE (NEGATIVE)
[2017-05-13 17:57] LABS: CALCIUM 8.9 mg/dL (8.5-10.1); CREATININE - SERUM 1.6 mg/dL (0.6-1.3)
[2017-05-13 18:02] LABS: ANION GAP 25.2 mmol/L (8-16); POTASSIUM - SERUM 2.2 mmol/L (3.5-5.1)
[2017-05-13 20:14] LABS: CALCIUM 7.7 mg/dL (8.5-10.1); CREATININE - SERUM 1.3 mg/dL (0.6-1.3); MAGNESIUM - SERUM 1.7 mg/dL (1.8-2.4)
[2017-05-13 20:18] LABS: ANION GAP 18.9 mmol/L (8-16); CARBON DIOXIDE 19.2 mmol/L (21.0-32.0); POTASSIUM - SERUM 2.1 mmol/L (3.5-5.1)
[2017-05-14] VITALS (24 sets, daily range): BP systolic 97–139; BP diastolic 57–77; BMI 35.7
[2017-05-14 01:05] LABS: ANION GAP 22.1 mmol/L (8-16); CALCIUM 8.6 mg/dL (8.5-10.1); CARBON DIOXIDE 16.2 mmol/L (21.0-32.0); CREATININE - SERUM 1.3 mg/dL (0.6-1.3)
[2017-05-14 01:07] LABS: POTASSIUM - SERUM 3.3 mmol/L (3.5-5.1)
[2017-05-14 04:44] LABS: BASOPHILS 0.1 % (0-2); EOSINOPHILS 0.2 % (0-7); HEMATOCRIT 42.5 % (36.0-48.0); IMMATURE GRANULOCYTES 0.3 % (0-5); LYMPHOCYTES 9.5 % (15-50); MCH 29.4 pg (26.0-34.0); MCHC 35.3 g/dL (31.0-37.0); MCV 83.2 fL (80.0-100.0); MEAN PLATELET VOLUME 11.1 fL (7.4-10.4); MONOCYTES 6.9 % (2-11); PLATELET COUNT 303 10x3/uL (130-400); RBC 5.11 10x6/uL (4.00-5.40); RDW 13.8 % (11.5-14.5); WBC 22.8 10x3/uL (4.8-10.8)
[2017-05-14 05:02] LABS: ALBUMIN 2.8 g/dL (3.4-5.0); ANION GAP 20.5 mmol/L (8-16); BILIRUBIN - TOTAL 0.54 mg/dL (0.2-1.3); CARBON DIOXIDE 19.4 mmol/L (21.0-32.0); CREATININE - SERUM 1.3 mg/dL (0.6-1.3); MAGNESIUM - SERUM 2.1 mg/dL (1.8-2.4); POTASSIUM - SERUM 2.9 mmol/L (3.5-5.1); PROTEIN - SERUM 6.5 g/dL (6.4-8.2)
[2017-05-14 09:13] LABS: ALBUMIN 2.8 g/dL (3.4-5.0); ALKALINE PHOSPHATASE 134 U/L (46-116); ALT (SGPT) 11 U/L (10-68); BILIRUBIN - TOTAL 0.51 mg/dL (0.2-1.3); CALC OSMOLALITY 295 mosm/kg (275-300); CALCIUM 8.8 mg/dL (8.5-10.1); CARBON DIOXIDE 17.9 mmol/L (21.0-32.0); CHLORIDE - SERUM 108 mmol/L (98-107); CREATININE - SERUM 1.2 mg/dL (0.6-1.3); GLUCOSE 138 mg/dL (74-106); POTASSIUM - SERUM 3.3 mmol/L (3.5-5.1); PROTEIN - SERUM 6.6 g/dL (6.4-8.2); SODIUM 146 mmol/L (136-145); UREA NITROGEN 22 mg/dL (7-18); eGFR NON AFRICAN AMERICAN 52 mL/min (90-120)
[2017-05-14 09:16] LABS: KETONE - SERUM MODERATE mg/dL (NEGATIVE)
[2017-05-14 14:39] LABS: KETONE - SERUM MODERATE mg/dL (NEGATIVE)
[2017-05-14 14:42] LABS: CALC OSMOLALITY 291 mosm/kg (275-300); CALCIUM 8.4 mg/dL (8.5-10.1); CARBON DIOXIDE 17.3 mmol/L (21.0-32.0); CHLORIDE - SERUM 107 mmol/L (98-107); CREATININE - SERUM 1.1 mg/dL (0.6-1.3); POTASSIUM - SERUM 3.3 mmol/L (3.5-5.1); SODIUM 143 mmol/L (136-145); UREA NITROGEN 18 mg/dL (7-18); eGFR NON AFRICAN AMERICAN 58 mL/min (90-120)
[2017-05-14 14:57] LABS: GLUCOSE 193 mg/dL (74-106)
[2017-05-15] VITALS (24 sets, daily range): BP systolic 98–141; BP diastolic 60–89
[2017-05-15 05:05] LABS: BASOPHILS 0.2 % (0-2); HEMATOCRIT 39.5 % (36.0-48.0); HEMOGLOBIN 13.7 g/dL (12-16); IMMATURE GRANULOCYTES 0.2 % (0-5); MCHC 34.7 g/dL (31.0-37.0); MCV 83.5 fL (80.0-100.0); MEAN PLATELET VOLUME 11.2 fL (7.4-10.4); MONOCYTES 5.8 % (2-11); NEUTROPHILS 67.8 % (40-80); RBC 4.73 10x6/uL (4.00-5.40); RDW 14.2 % (11.5-14.5)
[2017-05-15 05:06] LABS: PLATELET COUNT 206 10x3/uL (130-400); WBC 10.3 10x3/uL (4.8-10.8)
[2017-05-15 05:23] LABS: ALBUMIN 2.6 g/dL (3.4-5.0); ANION GAP 21.1 mmol/L (8-16); BILIRUBIN - TOTAL 0.6 mg/dL (0.2-1.3); CALCIUM 8.3 mg/dL (8.5-10.1); CARBON DIOXIDE 17.9 mmol/L (21.0-32.0); PROTEIN - SERUM 6.5 g/dL (6.4-8.2)
[2017-05-16] VITALS (22 sets, daily range): BP systolic 92–135; BP diastolic 60–83; Ht 157.5 cm; Wt 88.5 kg
[2017-05-16 03:36] LABS: BASOPHILS 0.3 % (0-2); EOSINOPHILS 1.7 % (0-7); HEMATOCRIT 39.4 % (36.0-48.0); HEMOGLOBIN 13.7 g/dL (12-16); IMMATURE GRANULOCYTES 0.5 % (0-5); LYMPHOCYTES 35.9 % (15-50); MCH 29.1 pg (26.0-34.0); MCHC 34.8 g/dL (31.0-37.0); MCV 83.7 fL (80.0-100.0); MEAN PLATELET VOLUME 10.9 fL (7.4-10.4); MONOCYTES 9.2 % (2-11); NEUTROPHILS 52.4 % (40-80); PLATELET COUNT 172 10x3/uL (130-400); RBC 4.71 10x6/uL (4.00-5.40); RDW 13.8 % (11.5-14.5)
[2017-05-16 03:41] LABS: WBC 6.3 10x3/uL (4.8-10.8)
[2017-05-16 03:52] LABS: ALBUMIN 2.6 g/dL (3.4-5.0); ANION GAP 12.7 mmol/L (8-16); BILIRUBIN - TOTAL 0.59 mg/dL (0.2-1.3); CALCIUM 8.6 mg/dL (8.5-10.1); CREATININE - SERUM 0.9 mg/dL (0.6-1.3); POTASSIUM - SERUM 3.2 mmol/L (3.5-5.1); PROTEIN - SERUM 6.5 g/dL (6.4-8.2)
[2017-05-16 03:55] LABS: CARBON DIOXIDE 27.5 mmol/L (21.0-32.0)
[2017-05-16 10:09] LABS: BASOPHILS 0.4 % (0-2); EOSINOPHILS 1.7 % (0-7); HEMATOCRIT 41.2 % (36.0-48.0); HEMOGLOBIN 14.3 g/dL (12-16); IMMATURE GRANULOCYTES 0.6 % (0-5); LYMPHOCYTES 26.9 % (15-50); MCHC 34.7 g/dL (31.0-37.0); MCV 83.6 fL (80.0-100.0); MEAN PLATELET VOLUME 11.1 fL (7.4-10.4); MONOCYTES 6.6 % (2-11); NEUTROPHILS 63.8 % (40-80); RBC 4.93 10x6/uL (4.00-5.40); RDW 13.9 % (11.5-14.5); WBC 10.7 10x3/uL (4.8-10.8)
[2017-05-16 10:10] LABS: PLATELET COUNT 223 10x3/uL (130-400)
[2017-05-17] VITALS (13 sets, daily range): BP systolic 92–130; BP diastolic 61–82
[2017-05-17 03:09] LABS: BASOPHILS 0.7 % (0-2); EOSINOPHILS 1.7 % (0-7); HEMATOCRIT 37.3 % (36.0-48.0); HEMOGLOBIN 12.7 g/dL (12-16); IMMATURE GRANULOCYTES 0.7 % (0-5); LYMPHOCYTES 24.8 % (15-50); MCH 28.8 pg (26.0-34.0); MCV 84.6 fL (80.0-100.0); MEAN PLATELET VOLUME 11.3 fL (7.4-10.4); MONOCYTES 6.6 % (2-11); NEUTROPHILS 65.5 % (40-80); PLATELET COUNT 150 10x3/uL (130-400); RBC 4.41 10x6/uL (4.00-5.40); RDW 13.6 % (11.5-14.5)
[2017-05-17 03:43] LABS: ALBUMIN 2.5 g/dL (3.4-5.0); ALKALINE PHOSPHATASE 120 U/L (46-116); ALT (SGPT) 14 U/L (10-68); AMYLASE - SERUM 56 U/L (25-115); BILIRUBIN - TOTAL 0.38 mg/dL (0.2-1.3); CALC OSMOLALITY 272 mosm/kg (275-300); CALCIUM 8.4 mg/dL (8.5-10.1); CARBON DIOXIDE 30.9 mmol/L (21.0-32.0); CHLORIDE - SERUM 101 mmol/L (98-107); CREATININE - SERUM 0.7 mg/dL (0.6-1.3); GLUCOSE 139 mg/dL (74-106); LIPASE 209 U/L (73-393); POTASSIUM - SERUM 3.2 mmol/L (3.5-5.1); PROTEIN - SERUM 6.1 g/dL (6.4-8.2); SODIUM 137 mmol/L (136-145); UREA NITROGEN 3 mg/dL (7-18); eGFR NON AFRICAN AMERICAN > 90 mL/min (90-120)
[2017-05-17] MEDS ORDERED: CARAFATE1 G/10 ML PO (10:40)
[2017-05-17] MEDS ORDERED: LANTUS SOL100 UNIT/1 SC (10:43)
[2017-05-24 19:07] LABS: AEROBE ID Final report (())
[2017-05-25 16:11] LABS: AEROBE ID Final report (()); RESULT 1 Aerococcus urinae (())
== END 2017-05-17 14:48 | disposition home or self-care (01) | DRG 638 ==
LOC: D.ER 11:21 → D.ICU 13:54
PROVIDERS: Emergency Medicine; Family Medicine Adult Medicine; Internal Medicine Gastroenterology
PROC: 0DB78ZX Excision of Stomach, Pylorus, Via Natural or Artificial Opening Endoscopic, Diagnostic (ICD-10-PCS; principal; 2017-05-17 08:00)
DX: E11.10 Type 2 diabetes mellitus with ketoacidosis without coma (principal); N17.9 Acute kidney failure, unspecified; F17.203 Nicotine dependence unspecified, with withdrawal; K22.10 Ulcer of esophagus without bleeding; F31.9 Bipolar disorder, unspecified; F41.9 Anxiety disorder, unspecified; K21.9 Gastro-esophageal reflux disease without esophagitis; K29.80 Duodenitis without bleeding; K44.9 Diaphragmatic hernia without obstruction or gangrene; K29.70 Gastritis, unspecified, without bleeding; Z86.73 Personal history of transient ischemic attack (TIA), and cerebral infarction without residual deficits

== ENCOUNTER 2017-06-21 05:59 | Inpatient (IN) | payer MEDICARE ==
[~2017-06-21] VITALS: Ht 157.5 cm; Wt 90.0 kg
[2017-06-21] VITALS (50 sets, daily range): BP systolic 77–107; BP diastolic 48–91
--- NOTE | ~2017-06-21 | CN ---
PATIENT NAME:CHRISTINE BRADY MEDICAL RECORD: [id number] : 73 LOCATION:[id number] ADMIT DATE: 06/21/17 ACCOUNT: [id number] CONSULTING PHYSICIAN: ERNIE PINEDA MD REFERRING PHYSICIAN: JESUS HERNANDEZ MD DATE OF CONSULTATION: 06/21/2017 CONSULT REQUESTING PHYSICIAN: Jesus Hernandez MD REASON FOR CONSULTATION: Vent management. HISTORY OF PRESENT ILLNESS: Ms. Brady is a 41-year-old female, who has a history of diabetes mellitus, CVA, bipolar, alcoholism, anxiety, noncompliant. The patient came into the ER with acute mental status changes. The patient was unresponsive. She was electively intubated. Also, her pH was 6.97. The history is taken by reviewing the patient's note and talking to the nursing staff as well as with Dr. Hernandez. PAST MEDICAL HISTORY: 1. CVA. 2. Bipolar disorder. 3. Insulin-dependent type 2 diabetes mellitus. 4. Anxiety. 5. Gastroesophageal reflux disease. 6. History of erosive esophagitis. 7. Bipolar disorder, anxiety, depression. PAST SURGICAL HISTORY: Tubal ligation and IVC filter placement. ALLERGIES: SHE IS ALLERGIC TO SULFA, AMOXICILLIN, AND AZITHROMYCIN. MEDICATIONS: On [place] is reviewed. PERSONAL AND SOCIAL HISTORY: The patient is a drinking on a regular basis. She is also smoking marijuana. FAMILY HISTORY: Significant for cardiovascular disease, diabetes mellitus, and history of lung cancer in parents. PHYSICAL EXAMINATION: GENERAL: Now, the patient orally intubated and sedated. VITAL SIGNS: The blood pressure is 94/81. On arrival, her systolic blood pressure was in 50s. Temperature 96.4. SpO2 is 97%. She is on assist control mechanical ventilation. HEENT: Conjunctivae pink. Sclerae not icteric. Pupils equal, round and reactive. NECK: Neck is supple. No JVD. CHEST: There is no wheeze. No rales. HEART: Rate and rhythm is regular. Normal sound. No murmur. ABDOMEN: Abdomen is soft. Bowel sounds present. No hepatosplenomegaly. RECTAL: Deferred. EXTREMITIES: No cyanosis. No clubbing. No pedal edema. CENTRAL NERVOUS SYSTEM: Difficult to assess as the patient is orally intubated and sedated. CONSULT REPORT [id number] CHRISTINE BRADY LABORATORY DATA: CBC: WBC 33.8, hemoglobin 15.7, hematocrit 46.6, the platelet count 502. ABG: The pH was 6.97, pCO2 is 30.8, the pO2 is 952, bicarb was 7.2. potassium was 1.5. The lactic acid is 2.76. CHEST RADIOGRAPH: The ET tube is in good position. There is no infiltrate. OTHER LABORATORY DATA: Sodium is 142, potassium was 2, chloride 79, bicarb is 44.5, BUN is 36, creatinine 3.3, glucose 878. Ammonia level is 73. Amylase 1051, lipase 11,870. IMPRESSION: 1. Acute respiratory failure. 2. Metabolic acidosis. 3. Acute mental status changes secondary to diabetic ketoacidosis as well as secondary to hyperammonemia. 4. Acute pancreatitis. 5. Diabetic ketoacidosis. 6. Hypokalemia. 7. Hyponatremia. 8. Hypovolemic versus septic shock. 9. Alcoholism. 10. Leukocytosis. RECOMMENDATION: 1. We will continue mechanical ventilation. Start the vent bundle. 2. GI bleeding, ulcer prevention. 3. Continue vancomycin, meropenem, and Levaquin. 4. IV fluid resuscitation. 5. Replace lytes. 6. Follow up amylase and lipase. 7. Start on lactulose, start NG tube feeds. 8. Follow up labs and chest radiograph. Discuss with Dr. Hernandez. The critical care time is 45 minutes. Thank you for involving me in the care of Ms. Brady. TRANSINT:[id number] Voice Confirmation ID: [id number] DOCUMENT ID: [id number] ERNIE PINEDA MD at 1208 CC: [id number] DICTATION DATE: 06/21/17 1344 ELECTRIC FORK OPERATOR: 06/21/17 1456 ADM IN [place] [id number] [place] [address]
[~2017-06-21 05:59] MED LIST changes: +CARAFATE1 G/10 ML PO; +LANTUS SOL100 UNIT/1 SC
[2017-06-21 06:24] LABS: HEMATOCRIT 46.6 % (36.0-48.0); HEMOGLOBIN 15.7 g/dL (12-16); MCH 29.1 pg (26.0-34.0); MCHC 33.7 g/dL (31.0-37.0); MCV 86.5 fL (80.0-100.0); MEAN PLATELET VOLUME 11.4 fL (7.4-10.4); PLATELET COUNT 502 10x3/uL (130-400); RBC 5.39 10x6/uL (4.00-5.40); RDW 13.9 % (11.5-14.5); WBC 33.8 10x3/uL (4.8-10.8)
[2017-06-21 06:46] LABS: ALBUMIN 2.9 g/dL (3.4-5.0); BILIRUBIN - TOTAL 0.99 mg/dL (0.2-1.3); CALCIUM 9.5 mg/dL (8.5-10.1); CREATININE - SERUM 3.3 mg/dL (0.6-1.3); PROTEIN - SERUM 7.6 g/dL (6.4-8.2)
[2017-06-21 06:56] LABS: ANION GAP 40.5 mmol/L (8-16); CARBON DIOXIDE 4.5 mmol/L (21.0-32.0)
[2017-06-21 07:11] LABS: EOSINOPHILS 2 % (0-7); LYMPHOCYTES 2 % (15-50); MONOCYTES 2 % (2-11); NEUTROPHILS 86 % (40-80); PLATELET ESTIMATE INCREASED; PLATELET MORPHOLOGY GIANT PLTS PRESENT
[2017-06-21 07:45] LABS: APPEARANCE CLOUDY (CLEAR); COLOR YELLOW (YELLOW); NITRITE NEGATIVE (NEGATIVE)
[2017-06-21 07:46] LABS: AMORPHOUS SEDIMENT >1+ /lpf (NONE SEEN); BACTERIA FEW /hpf (NONE SEEN); BILIRUBIN NEGATIVE (NEGATIVE); EPITHELIAL CELLS NSEEN /hpf (0-5); GLUCOSE 1000 mg/dL (NEGATIVE); KETONE LARGE mg/dL (NEGATIVE); PROTEIN 2+ mg/dL (NEGATIVE); RED CELLS - URINE 25-50 /hpf (0-5); UROBILINOGEN NORMAL (NORMAL); WHITE CELLS - URINE 0-5 /hpf (0-5)
[2017-06-21 07:47] LABS: UDS - AMPHET NEGATIVE QUAL (NEGATIVE); UDS - BARB NEGATIVE QUAL (NEGATIVE); UDS - BENZO POSITIVE QUAL (NEGATIVE); UDS - COCAINE NEGATIVE QUAL (NEGATIVE); UDS - OPIATE NEGATIVE QUAL (NEGATIVE); UDS - PCP NEGATIVE QUAL (NEGATIVE); UDS - THC NEGATIVE QUAL (NEGATIVE)
[2017-06-21 07:58] LABS: APTT 26.3 SECONDS (22.8-39.4); INR 1.3 (0.85-1.17); PROTIME 15.7 SECONDS (11.6-15.0)
[2017-06-21 08:09] LABS: TROPONIN-I 0.023 ng/mL (0.000-0.060)
[2017-06-21 09:02] LABS: CHOL - HDL RATIO 9.4 ratio (2.3-4.1); LDL-HDL RATIO 5.3 ratio (1.5-3.5)
[2017-06-22] VITALS (45 sets, daily range): BP systolic 83–132; BP diastolic 49–113; Ht 157.5 cm; Wt 90.0 kg
[2017-06-22 04:45] LABS: BASOPHILS 0 % (0-2); EOSINOPHILS 0 % (0-7); HEMATOCRIT 33.4 % (36.0-48.0); HEMOGLOBIN 12.5 g/dL (12-16); IMMATURE GRANULOCYTES 0.7 % (0-5); LYMPHOCYTES 3.2 % (15-50); MCH 29.1 pg (26.0-34.0); MCHC 37.4 g/dL (31.0-37.0); MCV 77.9 fL (80.0-100.0); MEAN PLATELET VOLUME 11.3 fL (7.4-10.4); MONOCYTES 6.4 % (2-11); NEUTROPHILS 89.7 % (40-80); PLATELET COUNT 240 10x3/uL (130-400); RBC 4.29 10x6/uL (4.00-5.40); WBC 20.1 10x3/uL (4.8-10.8)
[2017-06-22 04:54] LABS: BILIRUBIN - TOTAL 0.3 mg/dL (0.2-1.3); CALCIUM 7.5 mg/dL (8.5-10.1); CREATININE - SERUM 2.8 mg/dL (0.6-1.3); MAGNESIUM - SERUM 1.6 mg/dL (1.8-2.4)
[2017-06-22 04:56] LABS: ALBUMIN 1.5 g/dL (3.4-5.0); CARBON DIOXIDE 11.6 mmol/L (21.0-32.0); POTASSIUM - SERUM 1.6 mmol/L (3.5-5.1); PROTEIN - SERUM 4.9 g/dL (6.4-8.2)
[2017-06-23] VITALS (61 sets, daily range): BP systolic 77–127; BP diastolic 50–8086
[2017-06-23 06:34] LABS: BASOPHILS 0.1 % (0-2); EOSINOPHILS 0.4 % (0-7); HEMATOCRIT 28.2 % (36.0-48.0); HEMOGLOBIN 10.4 g/dL (12-16); IMMATURE GRANULOCYTES 1.6 % (0-5); LYMPHOCYTES 8.4 % (15-50); MCH 28.7 pg (26.0-34.0); MCHC 36.9 g/dL (31.0-37.0); MCV 77.7 fL (80.0-100.0); MEAN PLATELET VOLUME 11.1 fL (7.4-10.4); MONOCYTES 6.1 % (2-11); NEUTROPHILS 83.4 % (40-80); PLATELET COUNT 188 10x3/uL (130-400); RBC 3.63 10x6/uL (4.00-5.40); RDW 14.7 % (11.5-14.5)
[2017-06-23 06:47] LABS: ALBUMIN 1.4 g/dL (3.4-5.0); ANION GAP 21.4 mmol/L (8-16); BILIRUBIN - TOTAL 0.3 mg/dL (0.2-1.3); CALCIUM 7.5 mg/dL (8.5-10.1); CREATININE - SERUM 3.5 mg/dL (0.6-1.3); PHOSPHOROUS 1.5 mg/dL (2.5-4.9); POTASSIUM - SERUM 3.6 mmol/L (3.5-5.1); PROTEIN - SERUM 4.3 g/dL (6.4-8.2)
[2017-06-23 06:48] LABS: CARBON DIOXIDE 9.2 mmol/L (21.0-32.0)
[2017-06-24] VITALS (96 sets, daily range): BP systolic 72–123; BP diastolic 45–97
[2017-06-24 03:46] LABS: BASOPHILS 0.1 % (0-2); EOSINOPHILS 0.9 % (0-7); HEMOGLOBIN 9.5 g/dL (12-16); IMMATURE GRANULOCYTES 1.4 % (0-5); LYMPHOCYTES 11.1 % (15-50); MCH 28.9 pg (26.0-34.0); MCHC 36.5 g/dL (31.0-37.0); MEAN PLATELET VOLUME 10.7 fL (7.4-10.4); MONOCYTES 3.7 % (2-11); NEUTROPHILS 82.8 % (40-80); PLATELET COUNT 185 10x3/uL (130-400); RBC 3.29 10x6/uL (4.00-5.40); RDW 15.4 % (11.5-14.5); WBC 22.6 10x3/uL (4.8-10.8)
[2017-06-24 04:08] LABS: ALBUMIN 1.6 g/dL (3.4-5.0); BILIRUBIN - TOTAL 0.55 mg/dL (0.2-1.3); CALCIUM 7.5 mg/dL (8.5-10.1); POTASSIUM - SERUM 3.8 mmol/L (3.5-5.1); PROTEIN - SERUM 4.3 g/dL (6.4-8.2); VANCOMYCIN - RANDOM 37.4 ug/mL (10.0-20.0)
[2017-06-24 04:32] LABS: ANION GAP 21.3 mmol/L (8-16); CARBON DIOXIDE 12.5 mmol/L (21.0-32.0); PHOSPHOROUS 0.8 mg/dL (2.5-4.9)
[2017-06-24 13:18] LABS: AMYLASE - SERUM 216 U/L (25-115); CALCIUM 7.5 mg/dL (8.5-10.1); CHLORIDE - SERUM 114 mmol/L (98-107); CREATININE - SERUM 4.2 mg/dL (0.6-1.3); LIPASE 147 U/L (73-393); POTASSIUM - SERUM 4.3 mmol/L (3.5-5.1); SODIUM 146 mmol/L (136-145); UREA NITROGEN 43 mg/dL (7-18); VANCOMYCIN - TROUGH 37.8 ug/mL (10.0-20.0); eGFR NON AFRICAN AMERICAN 12 mL/min (90-120)
[2017-06-24 13:19] LABS: CALC OSMOLALITY 315 mosm/kg (275-300); CARBON DIOXIDE 17.4 mmol/L (21.0-32.0); GLUCOSE 346 mg/dL (74-106); PHOSPHOROUS 1.9 mg/dL (2.5-4.9)
[2017-06-24 13:31] LABS: KETONE - SERUM NEGATIVE (NEGATIVE)
[2017-06-25] VITALS (93 sets, daily range): BP systolic 78–139; BP diastolic 48–110
[2017-06-25 03:53] LABS: BASOPHILS 0.6 % (0-2); EOSINOPHILS 1.6 % (0-7); HEMATOCRIT 27.9 % (36.0-48.0); IMMATURE GRANULOCYTES 4.2 % (0-5); LYMPHOCYTES 19.8 % (15-50); MCH 28.7 pg (26.0-34.0); MCHC 35.8 g/dL (31.0-37.0); MCV 79.9 fL (80.0-100.0); MEAN PLATELET VOLUME 10.8 fL (7.4-10.4); MONOCYTES 5.7 % (2-11); NEUTROPHILS 68.1 % (40-80); PLATELET COUNT 175 10x3/uL (130-400); RBC 3.49 10x6/uL (4.00-5.40); RDW 15.7 % (11.5-14.5); WBC 17.3 10x3/uL (4.8-10.8)
[2017-06-25 04:09] LABS: ALBUMIN 1.6 g/dL (3.4-5.0); APPEARANCE CLOUDY (CLEAR); BILIRUBIN NEGATIVE (NEGATIVE); BILIRUBIN - TOTAL 0.46 mg/dL (0.2-1.3); CALCIUM 7.2 mg/dL (8.5-10.1); COLOR YELLOW (YELLOW); CREATININE - SERUM 4.4 mg/dL (0.6-1.3); GLUCOSE 250 mg/dL (NEGATIVE); KETONE NEGATIVE (NEGATIVE); MAGNESIUM - SERUM 1.7 mg/dL (1.8-2.4); NITRITE NEGATIVE (NEGATIVE); PROTEIN TRACE mg/dL (NEGATIVE); PROTEIN - SERUM 4.3 g/dL (6.4-8.2); SPECIFIC GRAVITY 1.005 (1.005-1.020); UROBILINOGEN NORMAL (NORMAL); VANCOMYCIN - RANDOM 31.5 ug/mL (10.0-20.0)
[2017-06-25 04:10] LABS: EPITHELIAL CELLS 0-5 /hpf (0-5)
[2017-06-25 04:11] LABS: BACTERIA FEW /hpf (NONE SEEN); YEAST >1+ WITH HYPHAE /hpf (NONE SEEN)
[2017-06-25 04:13] LABS: ANION GAP 14.7 mmol/L (8-16); CARBON DIOXIDE 24.8 mmol/L (21.0-32.0); PHOSPHOROUS 1.1 mg/dL (2.5-4.9); POTASSIUM - SERUM 3.5 mmol/L (3.5-5.1)
[2017-06-26] VITALS (89 sets, daily range): BP systolic 80–114; BP diastolic 50–80
[2017-06-26 04:26] LABS: BASOPHILS 0.9 % (0-2); EOSINOPHILS 2.7 % (0-7); HEMATOCRIT 29.8 % (36.0-48.0); HEMOGLOBIN 10.4 g/dL (12-16); LYMPHOCYTES 22.6 % (15-50); MCH 28.6 pg (26.0-34.0); MCHC 34.9 g/dL (31.0-37.0); MEAN PLATELET VOLUME 11.5 fL (7.4-10.4); MONOCYTES 11.7 % (2-11); NEUTROPHILS 56.1 % (40-80); RBC 3.64 10x6/uL (4.00-5.40); RDW 15.9 % (11.5-14.5)
[2017-06-26 04:27] LABS: MCV 81.9 fL (80.0-100.0); PLATELET COUNT 130 10x3/uL (130-400); WBC 7.7 10x3/uL (4.8-10.8)
[2017-06-26 04:43] LABS: ALBUMIN 1.7 g/dL (3.4-5.0); BILIRUBIN - TOTAL 0.46 mg/dL (0.2-1.3); CALCIUM 7.5 mg/dL (8.5-10.1); CARBON DIOXIDE 25.8 mmol/L (21.0-32.0); CREATININE - SERUM 4.8 mg/dL (0.6-1.3); MAGNESIUM - SERUM 1.7 mg/dL (1.8-2.4); POTASSIUM - SERUM 3.8 mmol/L (3.5-5.1); PROTEIN - SERUM 4.8 g/dL (6.4-8.2); VANCOMYCIN - RANDOM 29.4 ug/mL (10.0-20.0)
[2017-06-27] VITALS (95 sets, daily range): BP systolic 80–112; BP diastolic 31–83
[2017-06-27 06:28] LABS: BASOPHILS 0.8 % (0-2); HEMATOCRIT 26.7 % (36.0-48.0); LYMPHOCYTES 34.8 % (15-50); MCH 28.3 pg (26.0-34.0); MCHC 33.7 g/dL (31.0-37.0); MEAN PLATELET VOLUME 11.5 fL (7.4-10.4); MONOCYTES 10.1 % (2-11); NEUTROPHILS 42.3 % (40-80); RBC 3.18 10x6/uL (4.00-5.40); RDW 16.2 % (11.5-14.5); WBC 9.6 10x3/uL (4.8-10.8)
[2017-06-27 06:29] LABS: PLATELET COUNT 179 10x3/uL (130-400)
[2017-06-27 06:41] LABS: ALBUMIN 1.9 g/dL (3.4-5.0); BILIRUBIN - TOTAL 0.4 mg/dL (0.2-1.3); CARBON DIOXIDE 27.8 mmol/L (21.0-32.0); CREATININE - SERUM 5.1 mg/dL (0.6-1.3); VANCOMYCIN - RANDOM 23.9 ug/mL (10.0-20.0)
[2017-06-27 06:43] LABS: ANION GAP 14.2 mmol/L (8-16); MAGNESIUM - SERUM 2.2 mg/dL (1.8-2.4); PHOSPHOROUS 3.4 mg/dL (2.5-4.9)
[2017-06-27 17:30] LABS: ANION GAP 13.3 mmol/L (8-16); CALCIUM 8.7 mg/dL (8.5-10.1); CREATININE - SERUM 5.2 mg/dL (0.6-1.3); POTASSIUM - SERUM 3.3 mmol/L (3.5-5.1)
[2017-06-28] VITALS (94 sets, daily range): BP systolic 73–131; BP diastolic 48–98
[2017-06-28 05:29] LABS: BASOPHILS 0.4 % (0-2); EOSINOPHILS 5.7 % (0-7); HEMATOCRIT 25.8 % (36.0-48.0); HEMOGLOBIN 8.5 g/dL (12-16); IMMATURE GRANULOCYTES 2.7 % (0-5); LYMPHOCYTES 30.8 % (15-50); MCH 28.3 pg (26.0-34.0); MCHC 32.9 g/dL (31.0-37.0); MEAN PLATELET VOLUME 10.8 fL (7.4-10.4); MONOCYTES 10.7 % (2-11); NEUTROPHILS 49.7 % (40-80); PLATELET COUNT 165 10x3/uL (130-400); RDW 16.4 % (11.5-14.5); WBC 9.5 10x3/uL (4.8-10.8)
[2017-06-28 05:56] LABS: ALBUMIN 1.9 g/dL (3.4-5.0); ANION GAP 13.3 mmol/L (8-16); BILIRUBIN - TOTAL 0.4 mg/dL (0.2-1.3); CALCIUM 8.5 mg/dL (8.5-10.1); CARBON DIOXIDE 27.4 mmol/L (21.0-32.0); POTASSIUM - SERUM 3.7 mmol/L (3.5-5.1); PROTEIN - SERUM 4.9 g/dL (6.4-8.2); VANCOMYCIN - RANDOM 19.5 ug/mL (10.0-20.0)
[2017-06-28 18:06] LABS: AEROBE ID Final report (())
[2017-06-29] VITALS (92 sets, daily range): BP systolic 77–109; BP diastolic 45–73
[2017-06-29 05:49] LABS: BASOPHILS 0.1 % (0-2); HEMATOCRIT 23.2 % (36.0-48.0); HEMOGLOBIN 7.8 g/dL (12-16); IMMATURE GRANULOCYTES 1.3 % (0-5); LYMPHOCYTES 31.8 % (15-50); MCH 29.1 pg (26.0-34.0); MCHC 33.6 g/dL (31.0-37.0); MCV 86.6 fL (80.0-100.0); MEAN PLATELET VOLUME 10.7 fL (7.4-10.4); NEUTROPHILS 52.8 % (40-80); PLATELET COUNT 134 10x3/uL (130-400); RBC 2.68 10x6/uL (4.00-5.40); RDW 16.3 % (11.5-14.5); WBC 7.2 10x3/uL (4.8-10.8)
[2017-06-29 06:24] LABS: ALBUMIN 1.9 g/dL (3.4-5.0); BILIRUBIN - TOTAL 0.4 mg/dL (0.2-1.3); CALCIUM 8.4 mg/dL (8.5-10.1); CARBON DIOXIDE 26.4 mmol/L (21.0-32.0); CREATININE - SERUM 4.8 mg/dL (0.6-1.3); MAGNESIUM - SERUM 1.8 mg/dL (1.8-2.4); PHOSPHOROUS 4.4 mg/dL (2.5-4.9); POTASSIUM - SERUM 3.4 mmol/L (3.5-5.1); PROTEIN - SERUM 4.8 g/dL (6.4-8.2); VANCOMYCIN - RANDOM 16.5 ug/mL (10.0-20.0)
[2017-06-30] VITALS (27 sets, daily range): BP systolic 85–106; BP diastolic 51–69
[2017-06-30 05:28] LABS: BASOPHILS 0.7 % (0-2); EOSINOPHILS 4.4 % (0-7); HEMATOCRIT 21.9 % (36.0-48.0); IMMATURE GRANULOCYTES 1.3 % (0-5); LYMPHOCYTES 32.5 % (15-50); MCH 28.8 pg (26.0-34.0); MCHC 32.9 g/dL (31.0-37.0); MCV 87.6 fL (80.0-100.0); MEAN PLATELET VOLUME 10.3 fL (7.4-10.4); MONOCYTES 7.2 % (2-11); NEUTROPHILS 53.9 % (40-80); PLATELET COUNT 130 10x3/uL (130-400); RDW 15.9 % (11.5-14.5); WBC 6.1 10x3/uL (4.8-10.8)
[2017-06-30 05:53] LABS: ANION GAP 14.5 mmol/L (8-16); BILIRUBIN - TOTAL 0.46 mg/dL (0.2-1.3); CALCIUM 8.2 mg/dL (8.5-10.1); CARBON DIOXIDE 28.5 mmol/L (21.0-32.0); CREATININE - SERUM 4.4 mg/dL (0.6-1.3); MAGNESIUM - SERUM 1.7 mg/dL (1.8-2.4); PHOSPHOROUS 5.3 mg/dL (2.5-4.9); PROTEIN - SERUM 4.9 g/dL (6.4-8.2); VANCOMYCIN - RANDOM 17.7 ug/mL (10.0-20.0)
[2017-06-30 06:22] LABS: HEMOGLOBIN 7.2 g/dL (12-16)
[2017-07-01 04:47] VITALS: BP 97/50
[2017-07-01 07:07] LABS: ALBUMIN 2.3 g/dL (3.4-5.0); ANION GAP 12.6 mmol/L (8-16); BILIRUBIN - TOTAL 0.5 mg/dL (0.2-1.3); CALCIUM 8.6 mg/dL (8.5-10.1); CARBON DIOXIDE 28.2 mmol/L (21.0-32.0); CREATININE - SERUM 4.2 mg/dL (0.6-1.3); MAGNESIUM - SERUM 1.9 mg/dL (1.8-2.4); PHOSPHOROUS 4.8 mg/dL (2.5-4.9); PROTEIN - SERUM 5.3 g/dL (6.4-8.2)
[2017-07-01 07:12] LABS: POTASSIUM - SERUM 2.8 mmol/L (3.5-5.1)
[2017-07-01 08:03] VITALS: BP 101/61
[2017-07-01 08:37] LABS: BASOPHILS 0.8 % (0-2); EOSINOPHILS 4.2 % (0-7); HEMOGLOBIN 9.3 g/dL (12-16); LYMPHOCYTES 30.8 % (15-50); MCH 29.6 pg (26.0-34.0); MCHC 33.9 g/dL (31.0-37.0); MCV 87.3 fL (80.0-100.0); MEAN PLATELET VOLUME 10.9 fL (7.4-10.4); MONOCYTES 7.2 % (2-11); PLATELET COUNT 123 10x3/uL (130-400); RBC 3.14 10x6/uL (4.00-5.40); RDW 15.4 % (11.5-14.5)
[2017-07-01 08:38] LABS: HEMATOCRIT 27.4 % (36.0-48.0)
[2017-07-01 12:35] VITALS: BP 109/63
[2017-07-01 15:56] VITALS: BP 101/55
[2017-07-01 21:41] VITALS: BP 101/55
[2017-07-02 02:35] VITALS: BP 103/59
[2017-07-02 06:20] VITALS: BP 95/55
[2017-07-02 08:16] LABS: BASOPHILS 0.6 % (0-2); EOSINOPHILS 3.3 % (0-7); HEMATOCRIT 29.3 % (36.0-48.0); HEMOGLOBIN 9.8 g/dL (12-16); IMMATURE GRANULOCYTES 0.6 % (0-5); LYMPHOCYTES 26.4 % (15-50); MCH 29.3 pg (26.0-34.0); MCHC 33.4 g/dL (31.0-37.0); MCV 87.5 fL (80.0-100.0); MEAN PLATELET VOLUME 10.7 fL (7.4-10.4); NEUTROPHILS 63.1 % (40-80); PLATELET COUNT 130 10x3/uL (130-400); RBC 3.35 10x6/uL (4.00-5.40); RDW 15.1 % (11.5-14.5)
[2017-07-02 08:31] LABS: ALBUMIN 2.5 g/dL (3.4-5.0); BILIRUBIN - TOTAL 0.56 mg/dL (0.2-1.3); CALCIUM 8.7 mg/dL (8.5-10.1); CARBON DIOXIDE 28.7 mmol/L (21.0-32.0); CREATININE - SERUM 3.3 mg/dL (0.6-1.3); PROTEIN - SERUM 5.8 g/dL (6.4-8.2)
[2017-07-02 08:32] LABS: MAGNESIUM - SERUM 1.4 mg/dL (1.8-2.4)
[2017-07-02 08:33] LABS: ANION GAP 12.3 mmol/L (8-16)
[2017-07-02 09:07] VITALS: BP 119/65
[2017-07-02 13:13] VITALS: BP 115/66
[2017-07-02 16:23] VITALS: BP 118/68
[2017-07-02 22:16] VITALS: BP 90/59
[2017-07-03 05:26] VITALS: BP 90/50
[2017-07-03 06:18] LABS: BASOPHILS 1.7 % (0-2); EOSINOPHILS 4.6 % (0-7); HEMATOCRIT 32.7 % (36.0-48.0); HEMOGLOBIN 10.9 g/dL (12-16); IMMATURE GRANULOCYTES 0.3 % (0-5); LYMPHOCYTES 32.4 % (15-50); MCH 29.2 pg (26.0-34.0); MCHC 33.3 g/dL (31.0-37.0); MCV 87.7 fL (80.0-100.0); MEAN PLATELET VOLUME 10.4 fL (7.4-10.4); MONOCYTES 6.3 % (2-11); NEUTROPHILS 54.7 % (40-80); RBC 3.73 10x6/uL (4.00-5.40); RDW 14.5 % (11.5-14.5); WBC 6.5 10x3/uL (4.8-10.8)
[2017-07-03 06:23] LABS: PLATELET COUNT 174 10x3/uL (130-400)
[2017-07-03 06:41] LABS: ALBUMIN 2.7 g/dL (3.4-5.0); ANION GAP 14.6 mmol/L (8-16); BILIRUBIN - TOTAL 0.63 mg/dL (0.2-1.3); CALCIUM 8.5 mg/dL (8.5-10.1); CARBON DIOXIDE 31.6 mmol/L (21.0-32.0); CREATININE - SERUM 3.2 mg/dL (0.6-1.3); MAGNESIUM - SERUM 1.2 mg/dL (1.8-2.4); PROTEIN - SERUM 6.1 g/dL (6.4-8.2)
[2017-07-03 07:05] LABS: POTASSIUM - SERUM 2.2 mmol/L (3.5-5.1)
[2017-07-03 08:03] VITALS: BP 91/49
[2017-07-03 12:58] VITALS: BP 81/45
[2017-07-03 16:52] VITALS: BP 83/44
[2017-07-03 21:32] VITALS: BP 99/53
[2017-07-04 04:56] VITALS: BP 109/60
[2017-07-04 05:58] LABS: BASOPHILS 2.2 % (0-2); EOSINOPHILS 4.7 % (0-7); HEMATOCRIT 33.4 % (36.0-48.0); HEMOGLOBIN 11.1 g/dL (12-16); IMMATURE GRANULOCYTES 0.3 % (0-5); LYMPHOCYTES 36.9 % (15-50); MCH 29.2 pg (26.0-34.0); MCHC 33.2 g/dL (31.0-37.0); MCV 87.9 fL (80.0-100.0); MEAN PLATELET VOLUME 10.6 fL (7.4-10.4); MONOCYTES 5.5 % (2-11); NEUTROPHILS 50.4 % (40-80); PLATELET COUNT 184 10x3/uL (130-400); RDW 14.4 % (11.5-14.5); WBC 6.4 10x3/uL (4.8-10.8)
[2017-07-04 06:27] LABS: ALBUMIN 2.7 g/dL (3.4-5.0); ANION GAP 13.5 mmol/L (8-16); BILIRUBIN - TOTAL 0.57 mg/dL (0.2-1.3); CALCIUM 8.6 mg/dL (8.5-10.1); CARBON DIOXIDE 31.4 mmol/L (21.0-32.0); CREATININE - SERUM 2.6 mg/dL (0.6-1.3); PHOSPHOROUS 4.4 mg/dL (2.5-4.9); PROTEIN - SERUM 6.4 g/dL (6.4-8.2)
[2017-07-04 06:32] LABS: POTASSIUM - SERUM 2.9 mmol/L (3.5-5.1)
[2017-07-04 08:59] VITALS: BP 92/55
[2017-07-04 13:09] VITALS: BP 130/61
[2017-07-04 16:14] VITALS: BP 86/49
[2017-07-04 18:48] LABS: APPEARANCE CLEAR (CLEAR); BILIRUBIN NEGATIVE (NEGATIVE); COLOR YELLOW (YELLOW); GLUCOSE 100 mg/dL (NEGATIVE); KETONE NEGATIVE (NEGATIVE); NITRITE NEGATIVE (NEGATIVE); PROTEIN 1+ mg/dL (NEGATIVE); SPECIFIC GRAVITY 1.005 (1.005-1.020); UROBILINOGEN NORMAL (NORMAL)
[2017-07-04 18:49] LABS: RED CELLS - URINE 0-5 /hpf (0-5); WHITE CELLS - URINE 0-5 /hpf (0-5)
[2017-07-04 18:50] LABS: BACTERIA FEW /hpf (NONE SEEN); EPITHELIAL CELLS 0-5 /hpf (0-5)
[2017-07-04 18:51] LABS: YEAST <1+ /hpf (NONE SEEN)
[2017-07-04 22:35] VITALS: BP 110/57
[2017-07-05 04:47] LABS: BASOPHILS 2.5 % (0-2); EOSINOPHILS 6.8 % (0-7); HEMOGLOBIN 10.8 g/dL (12-16); IMMATURE GRANULOCYTES 0.3 % (0-5); LYMPHOCYTES 41.3 % (15-50); MCH 29.3 pg (26.0-34.0); MCHC 32.7 g/dL (31.0-37.0); MCV 89.4 fL (80.0-100.0); MEAN PLATELET VOLUME 10.8 fL (7.4-10.4); MONOCYTES 7.2 % (2-11); NEUTROPHILS 41.9 % (40-80); RBC 3.69 10x6/uL (4.00-5.40); RDW 14.2 % (11.5-14.5)
[2017-07-05 04:49] LABS: PLATELET COUNT 233 10x3/uL (130-400)
[2017-07-05 05:04] LABS: ALBUMIN 2.7 g/dL (3.4-5.0); ANION GAP 15.3 mmol/L (8-16); BILIRUBIN - TOTAL 0.6 mg/dL (0.2-1.3); CALCIUM 9.1 mg/dL (8.5-10.1); CARBON DIOXIDE 28.2 mmol/L (21.0-32.0); CREATININE - SERUM 2.2 mg/dL (0.6-1.3); PHOSPHOROUS 5.4 mg/dL (2.5-4.9); PROTEIN - SERUM 6.4 g/dL (6.4-8.2)
[2017-07-05 05:14] LABS: POTASSIUM - SERUM 3.5 mmol/L (3.5-5.1)
[2017-07-05 08:28] VITALS: BP 92/58
[2017-07-05 13:25] VITALS: BP 104/67
[2017-07-05 16:13] VITALS: BP 89/48
[2017-07-05 20:00] VITALS: BP 105/56
[2017-07-06] VITALS: BP 91/50
[2017-07-06 04:00] VITALS: BP 79/45
[2017-07-06 04:47] LABS: EOSINOPHILS 6.8 % (0-7); HEMATOCRIT 32.9 % (36.0-48.0); HEMOGLOBIN 10.8 g/dL (12-16); IMMATURE GRANULOCYTES 0.6 % (0-5); LYMPHOCYTES 42.1 % (15-50); MCH 29.1 pg (26.0-34.0); MCHC 32.8 g/dL (31.0-37.0); MCV 88.7 fL (80.0-100.0); MEAN PLATELET VOLUME 10.8 fL (7.4-10.4); MONOCYTES 6.3 % (2-11); NEUTROPHILS 41.2 % (40-80); PLATELET COUNT 235 10x3/uL (130-400); RBC 3.71 10x6/uL (4.00-5.40); RDW 13.9 % (11.5-14.5); WBC 5.3 10x3/uL (4.8-10.8)
[2017-07-06 05:16] LABS: ALBUMIN 2.6 g/dL (3.4-5.0); ANION GAP 13.4 mmol/L (8-16); BILIRUBIN - TOTAL 0.43 mg/dL (0.2-1.3); CARBON DIOXIDE 30.4 mmol/L (21.0-32.0); CREATININE - SERUM 1.9 mg/dL (0.6-1.3); PHOSPHOROUS 5.1 mg/dL (2.5-4.9); POTASSIUM - SERUM 3.8 mmol/L (3.5-5.1); PROTEIN - SERUM 6.5 g/dL (6.4-8.2)
[2017-07-06 08:12] VITALS: BP 91/42
[2017-07-06 12:00] VITALS: BP 88/49
[2017-07-06 16:36] VITALS: BP 91/52
[2017-07-06 21:45] VITALS: BP 138/74
[2017-07-07 01:01] VITALS: BP 154/74
[2017-07-07 04:45] VITALS: BP 148/78
[2017-07-07 05:04] LABS: BASOPHILS 2.3 % (0-2); EOSINOPHILS 6.8 % (0-7); HEMOGLOBIN 10.7 g/dL (12-16); IMMATURE GRANULOCYTES 0.4 % (0-5); MCH 29.2 pg (26.0-34.0); MCHC 32.4 g/dL (31.0-37.0); MCV 89.9 fL (80.0-100.0); MEAN PLATELET VOLUME 10.7 fL (7.4-10.4); MONOCYTES 5.5 % (2-11); PLATELET COUNT 277 10x3/uL (130-400); RBC 3.67 10x6/uL (4.00-5.40); WBC 5.6 10x3/uL (4.8-10.8)
[2017-07-07 05:29] LABS: ALBUMIN 2.7 g/dL (3.4-5.0); ANION GAP 17.4 mmol/L (8-16); BILIRUBIN - TOTAL 0.44 mg/dL (0.2-1.3); CALCIUM 8.8 mg/dL (8.5-10.1); CARBON DIOXIDE 27.2 mmol/L (21.0-32.0); CREATININE - SERUM 1.7 mg/dL (0.6-1.3); POTASSIUM - SERUM 3.6 mmol/L (3.5-5.1); PROTEIN - SERUM 6.1 g/dL (6.4-8.2)
[2017-07-07 08:16] VITALS: BP 88/46
[2017-07-07 13:02] VITALS: BP 95/56
[2017-07-07 21:07] VITALS: BP 100/61
[2017-07-08 01:17] VITALS: BP 104/64
[2017-07-08 04:44] VITALS: BP 100/64
[2017-07-08 05:47] LABS: BASOPHILS 1.5 % (0-2); EOSINOPHILS 7.2 % (0-7); HEMATOCRIT 31.1 % (36.0-48.0); IMMATURE GRANULOCYTES 0.4 % (0-5); LYMPHOCYTES 35.6 % (15-50); MCH 28.5 pg (26.0-34.0); MCHC 32.2 g/dL (31.0-37.0); MCV 88.6 fL (80.0-100.0); MEAN PLATELET VOLUME 10.8 fL (7.4-10.4); MONOCYTES 6.3 % (2-11); PLATELET COUNT 278 10x3/uL (130-400); RBC 3.51 10x6/uL (4.00-5.40); RDW 13.7 % (11.5-14.5); WBC 5.4 10x3/uL (4.8-10.8)
[2017-07-08 06:25] LABS: ALBUMIN 2.5 g/dL (3.4-5.0); ANION GAP 15.5 mmol/L (8-16); BILIRUBIN - TOTAL 0.51 mg/dL (0.2-1.3); CALCIUM 8.4 mg/dL (8.5-10.1); CARBON DIOXIDE 25.5 mmol/L (21.0-32.0); CREATININE - SERUM 1.4 mg/dL (0.6-1.3); PROTEIN - SERUM 6.7 g/dL (6.4-8.2)
[2017-07-08 12:53] VITALS: BP 109/67
[2017-07-08 16:04] VITALS: BP 125/64
[2017-07-08 20:15] VITALS: BP 106/64
[2017-07-09 01:48] VITALS: BP 103/61
[2017-07-09 04:53] VITALS: BP 174/69
[2017-07-09 06:03] LABS: BASOPHILS 1.3 % (0-2); EOSINOPHILS 9.7 % (0-7); HEMATOCRIT 30.5 % (36.0-48.0); HEMOGLOBIN 9.9 g/dL (12-16); IMMATURE GRANULOCYTES 0.2 % (0-5); LYMPHOCYTES 39.7 % (15-50); MCH 28.9 pg (26.0-34.0); MCHC 32.5 g/dL (31.0-37.0); MCV 89.2 fL (80.0-100.0); MEAN PLATELET VOLUME 10.9 fL (7.4-10.4); MONOCYTES 6.3 % (2-11); NEUTROPHILS 42.8 % (40-80); PLATELET COUNT 301 10x3/uL (130-400); RBC 3.42 10x6/uL (4.00-5.40); RDW 13.7 % (11.5-14.5); WBC 5.4 10x3/uL (4.8-10.8)
[2017-07-09 06:53] LABS: ALBUMIN 2.4 g/dL (3.4-5.0); ANION GAP 16.4 mmol/L (8-16); BILIRUBIN - TOTAL 0.43 mg/dL (0.2-1.3); CALCIUM 7.9 mg/dL (8.5-10.1); CREATININE - SERUM 1.1 mg/dL (0.6-1.3); POTASSIUM - SERUM 3.4 mmol/L (3.5-5.1); PROTEIN - SERUM 5.7 g/dL (6.4-8.2)
[2017-07-09 08:32] VITALS: BP 110/66
[2017-07-09 12:30] VITALS: BP 129/85
[2017-07-09 16:26] VITALS: BP 105/70
[2017-07-09 22:29] VITALS: BP 107/62
[2017-07-10 04:53] VITALS: BP 124/64
[2017-07-10 05:41] LABS: BASOPHILS 1.7 % (0-2); EOSINOPHILS 11.4 % (0-7); HEMOGLOBIN 9.7 g/dL (12-16); IMMATURE GRANULOCYTES 0.2 % (0-5); LYMPHOCYTES 38.6 % (15-50); MCHC 32.3 g/dL (31.0-37.0); MCV 89.6 fL (80.0-100.0); MEAN PLATELET VOLUME 10.7 fL (7.4-10.4); MONOCYTES 9.5 % (2-11); NEUTROPHILS 38.6 % (40-80); PLATELET COUNT 287 10x3/uL (130-400); RBC 3.35 10x6/uL (4.00-5.40); RDW 13.5 % (11.5-14.5); WBC 5.2 10x3/uL (4.8-10.8)
[2017-07-10 05:56] LABS: ALBUMIN 2.3 g/dL (3.4-5.0); ANION GAP 14.1 mmol/L (8-16); BILIRUBIN - TOTAL 0.42 mg/dL (0.2-1.3); CALCIUM 7.7 mg/dL (8.5-10.1); CARBON DIOXIDE 24.1 mmol/L (21.0-32.0); CREATININE - SERUM 1.1 mg/dL (0.6-1.3); POTASSIUM - SERUM 3.2 mmol/L (3.5-5.1)
[2017-07-10 08:26] VITALS: BP 140/59
[2017-07-10 12:47] VITALS: BP 128/77
[2017-07-10 16:17] VITALS: BP 116/72
[2017-07-10 20:00] VITALS: BP 121/61
[2017-07-11] VITALS: BP 112/64
[2017-07-11 04:00] VITALS: BP 92/51
[2017-07-11 07:00] LABS: BASOPHILS 1.1 % (0-2); EOSINOPHILS 11.2 % (0-7); HEMATOCRIT 30.3 % (36.0-48.0); HEMOGLOBIN 9.9 g/dL (12-16); IMMATURE GRANULOCYTES 0.2 % (0-5); LYMPHOCYTES 43.1 % (15-50); MCH 29.1 pg (26.0-34.0); MCHC 32.7 g/dL (31.0-37.0); MCV 89.1 fL (80.0-100.0); MEAN PLATELET VOLUME 10.9 fL (7.4-10.4); MONOCYTES 7.2 % (2-11); NEUTROPHILS 37.2 % (40-80); PLATELET COUNT 324 10x3/uL (130-400); RDW 13.4 % (11.5-14.5); WBC 6.4 10x3/uL (4.8-10.8)
[2017-07-11 07:13] LABS: ALBUMIN 2.4 g/dL (3.4-5.0); ANION GAP 15.8 mmol/L (8-16); BILIRUBIN - TOTAL 0.42 mg/dL (0.2-1.3); CALCIUM 7.5 mg/dL (8.5-10.1); CARBON DIOXIDE 23.1 mmol/L (21.0-32.0); POTASSIUM - SERUM 3.9 mmol/L (3.5-5.1); PROTEIN - SERUM 6.2 g/dL (6.4-8.2)
[2017-07-11 08:31] VITALS: BP 108/69
[2017-07-11 12:05] VITALS: BP 126/76
[2017-07-11 15:23] LABS: APPEARANCE CLEAR (CLEAR); BILIRUBIN NEGATIVE (NEGATIVE); COLOR STRAW (YELLOW); GLUCOSE 100 mg/dL (NEGATIVE); KETONE SMALL mg/dL (NEGATIVE); PROTEIN TRACE mg/dL (NEGATIVE); UROBILINOGEN NORMAL (NORMAL)
[2017-07-11 15:24] LABS: NITRITE NEGATIVE (NEGATIVE)
[2017-07-11 15:25] LABS: WHITE CELLS - URINE 0-5 /hpf (0-5)
[2017-07-11 15:26] LABS: BACTERIA FEW /hpf (NONE SEEN); YEAST <1+ /hpf (NONE SEEN)
[2017-07-11 20:00] VITALS: BP 111/56
[2017-07-12 04:00] VITALS: BP 88/48
[2017-07-12 05:43] LABS: BASOPHILS 1.4 % (0-2); EOSINOPHILS 12.8 % (0-7); HEMATOCRIT 30.5 % (36.0-48.0); HEMOGLOBIN 9.7 g/dL (12-16); IMMATURE GRANULOCYTES 0.2 % (0-5); MCH 28.8 pg (26.0-34.0); MCHC 31.8 g/dL (31.0-37.0); MCV 90.5 fL (80.0-100.0); MEAN PLATELET VOLUME 10.7 fL (7.4-10.4); MONOCYTES 6.9 % (2-11); NEUTROPHILS 36.7 % (40-80); PLATELET COUNT 342 10x3/uL (130-400); RBC 3.37 10x6/uL (4.00-5.40); RDW 13.6 % (11.5-14.5); WBC 5.6 10x3/uL (4.8-10.8)
[2017-07-12 05:51] LABS: ALBUMIN 2.3 g/dL (3.4-5.0); ANION GAP 14.1 mmol/L (8-16); BILIRUBIN - TOTAL 0.32 mg/dL (0.2-1.3); CALCIUM 7.5 mg/dL (8.5-10.1); CARBON DIOXIDE 24.5 mmol/L (21.0-32.0); CREATININE - SERUM 1.2 mg/dL (0.6-1.3); PROTEIN - SERUM 5.8 g/dL (6.4-8.2)
[2017-07-12 05:52] LABS: POTASSIUM - SERUM 4.6 mmol/L (3.5-5.1)
[2017-07-12 08:21] VITALS: BP 96/51
[2017-07-12 12:29] VITALS: BP 89/47
[2017-07-12 16:35] VITALS: BP 107/60
[2017-07-12 20:00] VITALS: BP 88/51
[2017-07-13 04:20] VITALS: BP 101/56
[2017-07-13 05:44] LABS: BASOPHILS 0.6 % (0-2); EOSINOPHILS 12.9 % (0-7); HEMATOCRIT 30.2 % (36.0-48.0); HEMOGLOBIN 9.6 g/dL (12-16); IMMATURE GRANULOCYTES 0.4 % (0-5); LYMPHOCYTES 32.6 % (15-50); MCH 28.4 pg (26.0-34.0); MCHC 31.8 g/dL (31.0-37.0); MCV 89.3 fL (80.0-100.0); MEAN PLATELET VOLUME 10.6 fL (7.4-10.4); MONOCYTES 7.7 % (2-11); NEUTROPHILS 45.8 % (40-80); PLATELET COUNT 295 10x3/uL (130-400); RBC 3.38 10x6/uL (4.00-5.40); RDW 13.3 % (11.5-14.5)
[2017-07-13 06:09] LABS: ALBUMIN 2.3 g/dL (3.4-5.0); ANION GAP 14.6 mmol/L (8-16); BILIRUBIN - TOTAL 0.3 mg/dL (0.2-1.3); CALCIUM 7.4 mg/dL (8.5-10.1); CARBON DIOXIDE 23.5 mmol/L (21.0-32.0); CREATININE - SERUM 1.2 mg/dL (0.6-1.3); POTASSIUM - SERUM 4.1 mmol/L (3.5-5.1); PROTEIN - SERUM 6.2 g/dL (6.4-8.2)
[2017-07-13 07:42] VITALS: BP 101/58
[2017-07-13] MEDS ORDERED: CYMBALTA30 MG PO (12:11)
[2017-07-13] MEDS ORDERED: HUMULIN R100 U/ML SC (12:12)
[2017-07-13] MEDS ORDERED: NYSTATIN1 PWD TOPICAL (12:13)
[2017-07-20 03:05] LABS: OVA + PARASITE EXAM Final report (())
== END 2017-07-13 16:19 | DRG 870 ==
LOC: D.ER 05:59 → D.EDHOLD 09:34 → D.MS 09:34 → D.ICU 09:34 → D.MS 06-30 22:43
PROVIDERS: Emergency Medicine; Family Medicine; Internal Medicine; Internal Medicine Nephrology; Internal Medicine Pulmonary Disease
PROC: 5A1955Z Respiratory Ventilation, Greater than 96 Consecutive Hours (ICD-10-PCS; principal; 2017-06-21)
PROC: 0BH17EZ Insertion of Endotracheal Airway into Trachea, Via Natural or Artificial Opening (ICD-10-PCS; 2017-06-21)
PROC: 02HV33Z Insertion of Infusion Device into Superior Vena Cava, Percutaneous Approach (ICD-10-PCS; 2017-06-22)
DX: A41.9 Sepsis, unspecified organism (principal); E11.10 Type 2 diabetes mellitus with ketoacidosis without coma; J96.01 Acute respiratory failure with hypoxia; G92 Toxic encephalopathy; K85.90 Acute pancreatitis without necrosis or infection, unspecified; N17.0 Acute kidney failure with tubular necrosis; R65.21 Severe sepsis with septic shock; E87.2 Acidosis; E72.20 Disorder of urea cycle metabolism, unspecified; E87.1 Hypo-osmolality and hyponatremia; F17.203 Nicotine dependence unspecified, with withdrawal; R18.8 Other ascites; B37.49 Other urogenital candidiasis; Z91.14 Patient's other noncompliance with medication regimen; T68.XXXA Hypothermia, initial encounter; D72.829 Elevated white blood cell count, unspecified; E87.6 Hypokalemia; K21.9 Gastro-esophageal reflux disease without esophagitis; F12.90 Cannabis use, unspecified, uncomplicated; F31.9 Bipolar disorder, unspecified; E11.65 Type 2 diabetes mellitus with hyperglycemia; F10.20 Alcohol dependence, uncomplicated; E66.9 Obesity, unspecified; I49.9 Cardiac arrhythmia, unspecified; D64.9 Anemia, unspecified; E83.42 Hypomagnesemia; K72.90 Hepatic failure, unspecified without coma; F41.8 Other specified anxiety disorders

== ENCOUNTER 2018-02-11 17:14 | Inpatient (IN) | payer MEDICARE ==
[~2018-02-11] VITALS: Ht 157.5 cm; Wt 69.7 kg
[~2018-02-11 17:14] MED LIST changes: +CYMBALTA30 MG PO; +HUMULIN R100 U/ML SC; +NYSTATIN1 PWD TOPICAL
[2018-02-11 18:02] LABS: APPEARANCE HAZY (CLEAR); COLOR YELLOW (YELLOW); GLUCOSE 1000 mg/dL (NEGATIVE); KETONE MODERATE mg/dL (NEGATIVE); NITRITE NEGATIVE (NEGATIVE); PROTEIN 2+ mg/dL (NEGATIVE)
[2018-02-11 18:03] LABS: BILIRUBIN NEGATIVE (NEGATIVE); EPITHELIAL CELLS 0-5 /hpf (0-5); RED CELLS - URINE 0-5 /hpf (0-5); UROBILINOGEN NORMAL (NORMAL)
[2018-02-11 18:45] LABS: HEMATOCRIT 40.7 % (36.0-48.0); HEMOGLOBIN 14.4 g/dL (12-16); MCV 86.6 fL (80.0-100.0); WBC 19.9 10x3/uL (4.8-10.8)
[2018-02-11 18:46] LABS: BASOPHILS 0.4 % (0-2); EOSINOPHILS 0.1 % (0-7); IMMATURE GRANULOCYTES 0.8 % (0-5); LYMPHOCYTES 8.9 % (15-50); MCH 30.6 pg (26.0-34.0); MCHC 35.4 g/dL (31.0-37.0); MEAN PLATELET VOLUME 11.7 fL (7.4-10.4); MONOCYTES 5.6 % (2-11); NEUTROPHILS 84.2 % (40-80); PLATELET COUNT 521 10x3/uL (130-400); RDW 12.7 % (11.5-14.5)
--- NOTE | 2018-02-11 19:14 | NUR ---
PT REPOSITIONED IN BED, DENIES ANY FURTHER NEEDS AT THIS TIME. WILL CONTINUE TO MONITOR.
[2018-02-11 19:36] LABS: ALKALINE PHOSPHATASE 167 U/L (46-116); ALT (SGPT) 10 U/L (10-68); BILIRUBIN - TOTAL 0.31 mg/dL (0.2-1.3); CALCIUM 9.5 mg/dL (8.5-10.1); CHLORIDE - SERUM 100 mmol/L (98-107); CREATININE - SERUM 1.2 mg/dL (0.6-1.3); LIPASE 101 U/L (73-393); MAGNESIUM - SERUM 1.9 mg/dL (1.8-2.4); PRO BNP 345 pg/mL (0-125); PROTEIN - SERUM 7.8 g/dL (6.4-8.2); SODIUM 134 mmol/L (136-145); UREA NITROGEN 19 mg/dL (7-18); eGFR NON AFRICAN AMERICAN 52 mL/min (90-120)
[2018-02-11 19:46] LABS: CALC OSMOLALITY 288 mosm/kg (275-300); GLUCOSE 445 mg/dL (74-106); POTASSIUM - SERUM 2.5 mmol/L (3.5-5.1)
[2018-02-11 19:47] LABS: CARBON DIOXIDE 8.1 mmol/L (21.0-32.0); TROPONIN-I < 0.017 ng/mL (0.000-0.060)
[2018-02-11 19:57] LABS: ALBUMIN 2.2 g/dL (3.4-5.0)
--- NOTE | 2018-02-11 20:30 | NUR ---
PT GIVEN WATER.
--- NOTE | 2018-02-11 20:48 | NUR ---
ORDERS FOR ABGS AND SERUM KETONES PER DR. DUMONT, STATES NOT TO MOVE PT TO ROOM UNTIL HE IS INFORMED OF RESULTS PATIENT MAY NEED TO GO TO ICU INSTEAD. BIAS CUTTER NOTIFIED.
--- NOTE | 2018-02-11 21:30 | NUR ---
PT'S FIRST BAG OF POTSSIUM FINISHED. DR. DUMONT AT PT'S BEDSIDE DISCUSSING PLAN OF CARE WITH PT.
--- NOTE | 2018-02-11 22:40 | NUR ---
Notified by Dr Wang of patient transferring to ICU, verbal orders given to check/treat blood sugar Q2 hrs per low sliding scale. Awaiting patient arrival to unit.
[2018-02-11 23:00] VITALS: BP 125/82
--- NOTE | 2018-02-11 23:05 | NUR ---
Received patient from ER via stretcher to room 2305, connected to monitor and admission assessment completed per flowsheet. Patient AO x4, calm and cooperative. S1/S2 noted Sinus Tach on telemetry with HR 113, rythmic and regular. Breathing is even/unlabored on room air with O2 sat 100%, lung sounds clear throughout. Abdomen is round/soft with bowel sounds active x4, non-tender. Reddened area and Rash noted abdomen/buttocks/yaz anal area, excoriation noted. L side weakness noted, patient states chronic from previous CVA. All pulses palpable with cap refill < 3 sec, skin cool/moist. States pain 9/10 abdomen/buttocks, PRN morphine given as ordered. No further needs at this time, see flowsheet for details. All VSS and will continue to monitor.
[2018-02-11 23:27] VITALS: BP 125/82; BMI 27.7
[2018-02-12] VITALS (25 sets, daily range): BP systolic 85–125; BP diastolic 50–82; Ht 157.5 cm; Wt 69.7 kg
--- NOTE | 2018-02-12 01:00 | NUR ---
Patient resting in bed with eyes closed, no s/s of distress at this time. Repositioned for comfort, no further needs and will continue to monitor.
--- NOTE | 2018-02-12 03:10 | NUR ---
Reassessment completed per flowsheet, patient resting in bed with eyes closed. S1/S2 noted NSR on telemetry with HR 68, rythmic and regular. Breathing is even/unlabored on room air with O2 sat 98%, lung sounds clear throughout. Rash with redness/excoriation noted abdomen/buttocks/yaz area, cleaned/bathed with barrier cream applied. All pulses palpable with cap refill < 3 sec, LUE/LLE impaired ROM noted with skin warm/dry. C/O pain 3/10 buttocks/yaz area/abdomen, denies PRN medication at this time. No further needs, see flowsheet for details. All VSS and will continue to monitor.
[2018-02-12 03:40] LABS: CALC OSMOLALITY 281 mosm/kg (275-300); CALCIUM 8.2 mg/dL (8.5-10.1); CHLORIDE - SERUM 109 mmol/L (98-107); CREATININE - SERUM 0.8 mg/dL (0.6-1.3); GLUCOSE 201 mg/dL (74-106); SODIUM 138 mmol/L (136-145); UREA NITROGEN 12 mg/dL (7-18); eGFR NON AFRICAN AMERICAN 83 mL/min (90-120)
[2018-02-12 03:41] LABS: CARBON DIOXIDE 11.2 mmol/L (21.0-32.0); POTASSIUM - SERUM 2.2 mmol/L (3.5-5.1)
[2018-02-12 03:45] LABS: BASOPHILS 0.3 % (0-2); EOSINOPHILS 0.6 % (0-7); HEMATOCRIT 36.4 % (36.0-48.0); HEMOGLOBIN 12.9 g/dL (12-16); IMMATURE GRANULOCYTES 0.5 % (0-5); LYMPHOCYTES 13.3 % (15-50); MCH 29.7 pg (26.0-34.0); MCHC 35.4 g/dL (31.0-37.0); MCV 83.9 fL (80.0-100.0); MEAN PLATELET VOLUME 10.8 fL (7.4-10.4); MONOCYTES 5.4 % (2-11); NEUTROPHILS 79.9 % (40-80); PLATELET COUNT 394 10x3/uL (130-400); RBC 4.34 10x6/uL (4.00-5.40); RDW 12.6 % (11.5-14.5); WBC 19.7 10x3/uL (4.8-10.8)
[2018-02-12 03:50] LABS: KETONE - SERUM SMALL mg/dL (NEGATIVE)
[2018-02-12 03:51] LABS: MAGNESIUM - SERUM 1.4 mg/dL (1.8-2.4)
[2018-02-12 03:52] LABS: PHOSPHOROUS 1.2 mg/dL (2.5-4.9)
--- NOTE | 2018-02-12 04:00 | NUR ---
Lab results low K+ and Phos, will replace per protocol.
--- NOTE | 2018-02-12 05:00 | NUR ---
Patient sleeping in bed with eyes closed, K+ replacement per protocol ongoing. Denies needs at this time, all VSS and will continue to monitor.
--- NOTE | 2018-02-12 08:13 | HP ---
PATIENT: CHRISTINE NGUYEN MEDICAL RECORD: [id number] ACCOUNT: [id number] LOCATION:[facility] D.2305 : 73 ADMISSION DATE: 02/11/18 PCP: No PCP HISTORY AND PHYSICAL EXAMINATION REASON FOR ADMISSION: Fatigue, skin rash, and inability to care for self. HISTORY OF PRESENT ILLNESS: The patient is a 42-year-old female with history of type 2 diabetes and remote cerebrovascular accident. She states she has been living at home with her elderly parents who have been able to care for her. She states also that she had a fiance, but he left her several weeks ago and he was helping care for her and giving her medication. As a result, she has not had any insulin she says in almost 4 weeks. Her son called EMS tonight because he and her parents could not care for her. She complains of perineal irritation, skin rash, inability to perform ADLs. She has apparently been urinating in the bed she has been in. She denies fever. Says she is very thirsty. PAST MEDICAL HISTORY: She had CVA in 2014 causing a left hemiparesis for which she has been unable to walk, type 2 diabetes mellitus, poorly controlled with history of noncompliance in the past, history of anxiety, has been admitted for DKA in April and May of last year due to failing to buy by her insulin. She was admitted on July 21 of this year, hypotensive and septic shock, respiratory failure, and a pH of 6.98. She had DKA then with a blood sugar over 875, potassium of 2. Other history are that of GERD, remote GI bleed, upper GI bleed, erosive esophagitis, anxiety and bipolar illness. PAST SURGICAL HISTORY: Tubal ligation, IVC filter, left leg. ALLERGIES: SULFA, AMOXICILLIN, AND AZITHROMYCIN. CURRENT MEDICATIONS: Which she is noncompliant are Lantus 27 units b.i.d. She takes acidophilus probiotics capsule 460 mg daily, Protonix 40 mg a day. FAMILY HISTORY: Both parents are elderly, father with lung disease, mother with diabetes. One sister in her 40s of an acute NV. SOCIAL HISTORY: Nonsmoker. She has marijuana in the past, but none recently. She said used to drink alcohol fairly heavily. REVIEW OF SYSTEMS: CONSTITUTIONAL: She has been fatigued for the last month. Says she is thirsty at all the time. No recent fever. HEENT: No recent visual change, sinus congestion, sore throat or difficulty with her vision. CHEST: Denies history of chest pain, edema, or hypertension. CARDIOVASCULAR: No history of cardiovascular disease or angina. GASTROINTESTINAL: She has intermittent dyspepsia. No recent change in stools. Says she is constipated most of the time. ENDOCRINE: Admits to polyuria, polydipsia. No heat or cold intolerance. NEUROLOGIC: No history of CVA causing left hemiparesis, more so in the arm than her leg, but she is not ambulatory currently. Denies headache or visual change. GENITOURINARY: Has dysuria, urethral irritation, peroneal irritation currently from incontinence. HEMATOLOGIC: Denies easy bruisability. HISTORY AND PHYSICAL [id number] CHRISTINE NGUYEN PSYCHIATRIC: Admits to depressed mood, but no suicidal ideation. MUSCULOSKELETAL: Complains of left arm and hip pain due to her previous stroke. GYNECOLOGICAL: 2. No recent vaginal bleeding, has had previous tubal ligation. PHYSICAL EXAMINATION: GENERAL: Alert 42-year-old female at this time who appears clinically dehydrated. VITAL SIGNS: Show temperature of 97.9 Fahrenheit orally, pulse 120 to 125, sinus tachycardia, respirations are 18, blood pressure is 131/93, O2 sat 100% on room air. HEENT: She is normocephalic. Eyes are clear. Her mucous membranes are extremely dry on her oropharynx. NECK: Supple, with healed tracheostomy scar. HEART: Tachycardic without murmur. LUNGS: Clear throughout. ABDOMEN: Soft, nontender throughout without tenderness, LKS&P. EXTREMITIES: She has slight edema in her left lower extremity, but is able to move her left leg somewhat. Right leg is unremarkable. INTEGUMENT: She has a severe excoriated erythematous rash on her abdomen and perineal area and buttocks. GYNECOLOGIC: Deferred. NEUROLOGICAL: The patient is oriented to person, place, and time. Her cranial nerves are grossly intact. She has good motor right upper and lower extremity. On the left side, her left arm has minimal movement as is her left leg. PSYCHIATRIC: Admits to depressed mood and anxiety, but no suicidal thoughts. LABORATORY DATA: White count is 19,900, H&H is 14 and 40.7, platelet count 521,000, neutrophils 84.2, lymphocytes are 8.9. Chemistry: Sodium 134, potassium is 2.5, carbon dioxide is 8.1, anion gap is 28.4, BUN and creatinine is 19 and 1.2, glucose is 445. A1c is 9.6. Serum osmolality is 325. Lactic acid is 2, phosphorus is 5.1, magnesium is 1.9. Ammonia was 13. Cardiac enzymes are negative. ProBNP is 345, triglycerides are 264. Cholesterol 159. Amylase is 216, elevated lipase is 101. TSH is 1.01. Beta hCG is negative. Cortisol 10.3. Blood gas with a pH of 7.28 after 1 amp of bicarbonate given, CO2 is 15, pO2 is 89 on room air. Lactic acid is 2.19, hemoglobin is 14, hematocrit 41, potassium 2.5. Urine pH is 5, specific gravity is 1.02. Protein is 2+, ketones are moderate, leukocyte esterase is positive, 5-10 white cells per high power field. IMAGING: None performed as yet. ASSESSMENT: 1. Type 2 diabetes mellitus with diabetic ketoacidosis. 2. Metabolic acidosis secondary to type 2 diabetes mellitus with diabetic ketoacidosis. 3. Hypokalemia. 4. Dehydration clinically. 5. Sinus tachycardia. 6. Severe Angelina skin inflammation on her abdomen and perineum, remote cerebrovascular accident, nonambulatory. 7. Leukocytosis. Possible urinary tract infection. PLAN: The patient will be moved to the ICU. She is given saline fluid bolus currently in the ED. Potassium is being replaced IV. She has been given HISTORY AND PHYSICAL [id number] CHRISTINE NGUYEN insulin 10 units IV push times 1. We will place on sliding scale insulin as her followup blood sugar is now 233 one-hour post-IV push insulin. She will need skin consult and adult protective services consult. TRANSINT:[id number] Voice Confirmation ID: [id number] DOCUMENT ID: [id number] DREW DUMONT MD at 0813 CC: [id number] DICTATION DATE: 02/11/182147 MULTIMEDIA JOURNALIST: 02/12/18215 [place] [address]
--- NOTE | 2018-02-12 09:20 | NUR ---
DR DUMONT AT BEDSIDE. NEW ORDERS RECIEVED
--- NOTE | 2018-02-12 11:20 | NUR ---
REASSESSMENT COMPLETE PER FLOW SHEET. VSS NO NEW CHANGES PT RESTING COMFORTABLY WILL CONTINUE TO MONITOR
--- NOTE | 2018-02-12 11:24 | NUR ---
Wound care consult: Pt was admitted overnight from home. She is wheelchair/bed bound with left sided weakness. Incontinent of bowel and bladder. Upon skin assessment an excoriated red rash was noted covering perineal area, hips, abdomen and buttocks. The rash appears moisture associated. After discussion with pt it was found that she wears adult/diapers/briefs and was left in a soiled wet brief and bed for several days?weeks?. She states she no longer has a caregiver as her fiance has left her. Skin issue is currently being treated with IV diflucan daily and nystop powder BID. Recommend using a fan to help decrease moisture from weeping rash and discontinuing the use of diapers/briefs during this hospital stay. Wound care will continue monitoring.
--- NOTE | 2018-02-12 13:12 | NUR ---
FAMILY AT BEDSIDE. NO NEW CHANGES WILL CONTINUE TO MONITOR
--- NOTE | 2018-02-12 15:43 | NUR ---
REASSESSMENT COMPLETE PER FLOW SHEET. VSS. NO NEW CHANGES WILL CONTINUE TO MONITOR
--- NOTE | 2018-02-12 17:20 | NUR ---
COMPLETE BB LINEN CHANGE ADM. NO NEW CHANGES WILL CONTNIUE TO MONITOR
--- NOTE | 2018-02-12 18:13 | MORECARE ---
CASE MANAGEMENT DISCHARGE SUMMARY PATIENT: CHRISTINE NGUYEN UNIT: [id number] ADM DATE: 02/11/18 AGE: 42 : 73 SEX: F ROOM/BED: D.2305 AUTHOR: ABBEY ALVA PHYSICIAN: REFERRING PHYSICIAN: DREW DUMONT MD DATE OF SERVICE: 02/12/18 Discharge Plan Patient Name: CHRISTINE NGUYEN [facility] [facility] 1975 Planned Disposition: Fpc Facility Anticipated Discharge Date: Discharge Date: Expected LOS: Initial Reviewer: [email or web address] Initial Review Date: 02/12/2018 Generated: 02/12/18 7:13 pm DCPIA - Discharge Planning Initial Assessment Updated by [email or web address]: Misti Mccann on 02/12/18 6:12 pm * Is the patient Alert and Oriented? Yes * PCP Dr. bueno * Pharmacy [facility] or [facility] * Preadmission Environment Home with Family * ADLs Total Dependent * Equipment Wheelchair * List name and contact numbers for known caregivers / representatives who currently or will assist patient after discharge: Meggan Carlson mother [phone] * Verbal permission to speak to the caregivers and representatives has been obtained from the patient. N/A * Community resources currently utilized None * Additional services required to return to the preadmission environment? Yes * Can the patient safely return to the preadmission environment? No * Has this patient been hospitalized within the prior 30 days at any hospital? No Patient Name: CHRISTINE NGUYEN Page [id number] at 1813 All edits/amendments must be made on the electronic document DICTATION DATE: 02/12/181812 COMMERCIAL DRONE PILOT: KAYODE 02/12/181812 RPT#: [id number] SC DATE: STATUS: ADM IN [facility] [address] [place] [address] END OF REPORT
--- NOTE | 2018-02-12 18:29 | MORECARE ---
CASE MANAGEMENT DISCHARGE SUMMARY PATIENT: CHRISTINE NGUYEN UNIT: [id number] ADM DATE: 02/11/18 AGE: 42 : 74 SEX: F ROOM/BED: D.2305 AUTHOR: ABBEY ALVA PHYSICIAN: REFERRING PHYSICIAN: DREW DUMONT MD DATE OF SERVICE: 02/12/18 Discharge Plan Patient Name: CHRISTINE NGUYEN Facility: [facility]:[place] : 1975 Planned Disposition: Fci Facility Anticipated Discharge Date: Discharge Date: Expected LOS: Initial Reviewer: [email or web address] Initial Review Date: 02/12/2018 Generated: 02/12/18 7:29 pm Comments DCP- Discharge Planning Updated by [email or web address]: Misti Mccann on 02/12/18 5:[address] Patient Name: CHRISTINE NGUYEN Admission Status: ER Accout number: [id number] Admission Date: 02-11-2018 : 1975 Admission Diagnosis: Attending: DREW DUMONT Current LOS: 1 Anticipated DC Date: Planned Disposition: [facility]ci Facility Primary Insurance: MEDICARE A & B Discharge Planning Comments: CM spoke with patient at bedside. Patient states she knows she can't return to her home. She is totally dependent of all her ADLs she is can feed herself but that is about all. APS has been notified of case. Patient is requesting to discharge to [facility]. CM will contact [facility]. CM will fax records to [facility] for possible placement when stable. CM will continue to follow and assist with discharge planning / needs. Ostomy Rn: Misti Mccann DCPIA - Discharge Planning Initial Assessment Updated by [email or web address]: Misti Mccann on 02/12/18 6:12 pm * Is the patient Alert and Oriented? Yes * PCP Dr. bueno * Pharmacy [facility] or [facility] * Preadmission Environment Home with Family * ADLs Total Dependent * Equipment Wheelchair * List name and contact numbers for known caregivers / representatives who currently or will assist patient after discharge: Meggan Carlson mother [phone] * Verbal permission to speak to the caregivers and representatives has been obtained from the patient. N/A * Community resources currently utilized None * Additional services required to return to the preadmission environment? Yes * Can the patient safely return to the preadmission environment? No * Has this patient been hospitalized within the prior 30 days at any hospital? No External Providers External Provider: [facility] Next Contact Date: Service Request Date: Service Type: Resolution: Reviewer: Comments: Last DP export: 02/12/18 5:13 Patient Name: CHRISTINE NGUYEN Page [phone] at 1829 All edits/amendments must be made on the electronic document DICTATION DATE: 02/12/181827 DIRECTOR DENTAL SERVICES: KAYODE 02/12/181827 RPT#: [id number] AL DATE: STATUS: ADM IN [facility] [address] [place] [address] END OF REPORT
--- NOTE | 2018-02-12 19:15 | NUR ---
RECEIVED PT CARE, SHIFT ASSESSMENT COMPLETED SEE FLOWSHEET. PT REQUESTED PAIN MEDICATION AT THIS TIME - UNABLE TO GIVE, INFORMED HER I WILL RETURN WHEN SHE CAN HAVE THE PAIN MEDICATION. DENIES FURTHER NEEDS
--- NOTE | 2018-02-12 21:05 | NUR ---
PT DENIES NEEDS AT THIS TIME VSS
--- NOTE | 2018-02-12 23:06 | NUR ---
REASSESSMENT COMPLETED SEE FLOWSHEET
[2018-02-13] VITALS (13 sets, daily range): BP systolic 100–116; BP diastolic 54–77
--- NOTE | 2018-02-13 01:10 | NUR ---
PT DENIES NEEDS AT THIS TIME NO ACUTE CHANGES
--- NOTE | 2018-02-13 03:14 | NUR ---
REASSESSMENT COMPLETED SEE FLOWSHEET
[2018-02-13 03:32] LABS: BASOPHILS 0.6 % (0-2); EOSINOPHILS 1.7 % (0-7); HEMATOCRIT 35.2 % (36.0-48.0); HEMOGLOBIN 12.6 g/dL (12-16); LYMPHOCYTES 21.1 % (15-50); MCH 29.8 pg (26.0-34.0); MCHC 35.8 g/dL (31.0-37.0); MCV 83.2 fL (80.0-100.0); MEAN PLATELET VOLUME 10.9 fL (7.4-10.4); MONOCYTES 5.9 % (2-11); NEUTROPHILS 69.7 % (40-80); RBC 4.23 10x6/uL (4.00-5.40); RDW 12.7 % (11.5-14.5)
[2018-02-13 03:45] LABS: CALCIUM 8.2 mg/dL (8.5-10.1); CHLORIDE - SERUM 105 mmol/L (98-107); CREATININE - SERUM 0.7 mg/dL (0.6-1.3); GLUCOSE 223 mg/dL (74-106); MAGNESIUM - SERUM 1.6 mg/dL (1.8-2.4); SODIUM 140 mmol/L (136-145); eGFR NON AFRICAN AMERICAN > 90 mL/min (90-120)
[2018-02-13 03:46] LABS: PLATELET COUNT 274 10x3/uL (130-400); WBC 12.6 10x3/uL (4.8-10.8)
[2018-02-13 03:47] LABS: CALC OSMOLALITY 283 mosm/kg (275-300); PHOSPHOROUS 0.9 mg/dL (2.5-4.9); POTASSIUM - SERUM 2.3 mmol/L (3.5-5.1); UREA NITROGEN 7 mg/dL (7-18)
--- NOTE | 2018-02-13 07:00 | NUR ---
SHIFT ASSESSMENT COMPLETED PT ORIENTED DENIES PAIN OR NEEDS AT THIS TIME. SEE ASSESSMENT FOR DETAILS. PT IN BED CALL LIGHT IN REACH AND DEMONSTRATES ABILITY TO USE TO CALL NURSE.
--- NOTE | 2018-02-13 08:45 | NUR ---
PT DENIES PAIN SPEAKING WITH DR DUMONT ABOUT CARE AND MEDICATIONS FROM HOME DR DUMONT HERE NEW ORDERS NOTED. TRANSFER ORDERS PLACED.PT READY TO GET OUT OF ICU DENIES NEEDS AT THIS TIME
--- NOTE | 2018-02-13 11:00 | NUR ---
PT C/O PAIN REQUESTING PAIN MEDICATION FOR PAIN TO BUTTOCKS AND PERINEAL AREA 8 ON A 1-10 SCALE. PT SKIN IS RAW EXCORIATED RED WITH SKIN PEELING NYSTATIN POWDER NOTED SHE IS OFF OF BOTTOM BY WEDGES.MEDICATED WITH MORPHINE SEE EMAR
--- NOTE | 2018-02-13 12:00 | NUR ---
PT SON VISITING MOTHER ABLE TO UPDATE ON HER STATUS AND BEING ORDERS TO BE TRANSFERRED OUT TO REGULAR ROOM
--- NOTE | 2018-02-13 14:30 | NUR ---
PTS FRANK LEAKED COMPLETE BED BATH WITH COMPLETE LINEN CHANGE PTS BOTTOM PERINEAL BUTTOCKS AND FOLDS OF LOWER ABD AND VAGINAL AREA EXCORIATED RED WITH PEELING SKIN NOTED CLEANSED WITH SOAP AND WARM WATER PATTED DRY AND NYSTATIN POWDER APPLIED PER ORDERED.
--- NOTE | 2018-02-13 15:00 | NUR ---
PT C/O PAIN AFTER COMPLETE BED BATH AND COMPLETE LINEN CHANGE. PT STATES BUTTOCK COCCYX AND PERINEAL AREA THROBBING AND ACHING AFTER CLEANING AND REAPPLYING NYSTATIN POWDER. MORPHINE GIVEN PER PRN ORDRE SEE EMAR
--- NOTE | 2018-02-13 17:30 | NUR ---
PT HAS FINISHED DINNER. RESTING QUIETLY WITH EYES CLOSED NO DISTRESS NOTED BED IN LOW POSITION WITH CALL LIGHT IN REACH
--- NOTE | 2018-02-13 18:00 | NUR ---
IV INFILTRATED ON LEFT AC NEW PIV TO RIGHT WRIST 22 GUAGE STARTED AFTER 3 ATTEMPTS PER DERIK WOO RN PT DIFFICULT TO GET IV ON. 2 ATTEMPTS GOT BLOOD RETURNED BUT IMMEDIATLEY BLEW VEIN.
--- NOTE | 2018-02-13 19:10 | NUR ---
RECEIVED PT CARE, PT REQUESTED PAIN MEDICATION AT THIS TIME. SEE EMAR FOR ADMINISTRATION. VSS - SHIFT ASSESSMENT PERFORMED SEE FLOWSHEET. PATIENT REPOSITIONED FOR COMOFORT. WILL CONTINUE TO MONITOR
--- NOTE | 2018-02-13 20:37 | NUR ---
PAGED DIRECTOR OF NURSES REGISTRY REGARDING NYSTATIN POWDER
--- NOTE | 2018-02-13 22:34 | NUR ---
PT REQUESTED PAIN MEDICATIONS, REPOSITIONED FOR COMFORT, RECEIVED NYSTATIN POWDER FROM HOME CARE NURSE AT THIS TIME, SEE EMAR FOR ADMINISTRATION.
[2018-02-14 00:04] LABS: PHOSPHOROUS 2.2 mg/dL (2.5-4.9); POTASSIUM - SERUM 3.1 mmol/L (3.5-5.1)
--- NOTE | 2018-02-14 00:24 | NUR ---
PATIENT RECEIVED ELECTROLYTE REPLACEMENTS AT THIS TIME PER PROTOCOL SEE EMAR FOR ADMINISTRATION
--- NOTE | 2018-02-14 02:08 | NUR ---
pt started her cycle, linen change performed, puga care completed. additional nystatin applied for discomfort. will continue to monitor
[2018-02-14 03:46] LABS: BASOPHILS 1.1 % (0-2); EOSINOPHILS 2.3 % (0-7); HEMATOCRIT 32.3 % (36.0-48.0); HEMOGLOBIN 11.5 g/dL (12-16); IMMATURE GRANULOCYTES 1.5 % (0-5); MCH 29.5 pg (26.0-34.0); MCHC 35.6 g/dL (31.0-37.0); MCV 82.8 fL (80.0-100.0); MEAN PLATELET VOLUME 10.5 fL (7.4-10.4); NEUTROPHILS 48.1 % (40-80); RDW 12.8 % (11.5-14.5)
[2018-02-14 03:50] LABS: PLATELET COUNT 390 10x3/uL (130-400); WBC 9.2 10x3/uL (4.8-10.8)
[2018-02-14 03:57] LABS: CALCIUM 7.8 mg/dL (8.5-10.1); CHLORIDE - SERUM 103 mmol/L (98-107); MAGNESIUM - SERUM 1.8 mg/dL (1.8-2.4); PHOSPHOROUS 2.3 mg/dL (2.5-4.9); SODIUM 140 mmol/L (136-145); UREA NITROGEN 6 mg/dL (7-18)
[2018-02-14 03:59] LABS: CALC OSMOLALITY 277 mosm/kg (275-300); CREATININE - SERUM 0.5 mg/dL (0.6-1.3); GLUCOSE 108 mg/dL (74-106); eGFR NON AFRICAN AMERICAN > 90 mL/min (90-120)
[2018-02-14 04:00] LABS: CARBON DIOXIDE 29.8 mmol/L (21.0-32.0); POTASSIUM - SERUM 2.4 mmol/L (3.5-5.1)
--- NOTE | 2018-02-14 04:03 | NUR ---
LAB REPORTED CRITICAL POTASSIUM TREATED PER ELECTROLYTE PROTOCOL
--- NOTE | 2018-02-14 05:49 | NUR ---
PT RESTING COMFORTABLY, EASILY ROUSED, FRANK CARE PREFORMED, ASSISTED WITH ADL'S PATIENT DENIES NEEDS AT THIS TIME
[2018-02-14 07:00] VITALS: BP 95/62
--- NOTE | 2018-02-14 09:08 | NUR ---
PT C/O PAIN TO BUTTOCKS AND TO PERINEAL AREA WELL ABDOMINAL CRAMPING FROM MENSTRUAL CRAMPS MEDICATED PER PRN ORDERS OF MORPHINE 4 MG SIVP
--- NOTE | 2018-02-14 09:45 | NUR ---
PTS FAMILY VISITING PT HAS ROOM ASSIGNMENT ON FLOOR ROOM 0491
[2018-02-14 09:57] VITALS: BP 105/66
--- NOTE | 2018-02-14 10:45 | NUR ---
DR SANZ AUDITING MANAGER HERE FOR ROUNDS SPEAKING WITH PATIENT. REPORT CALLED TO FLOOR NURSE TO ROOM 2109. PT HAS LARGE AMOUNT OF MENSTRUAL BLEEDING ASSISTED WITH BED BATH AND NYSTATIN POWDER APPLIED AFTER SKIN PATTED DRY, SKIN TO BUTTOCKS LOWER ABD PERINEAL AND BUTTOCKS STILL EXCORIATED BUT IMPROVEMENT NOTED FROM YESTERDAY
--- NOTE | 2018-02-14 11:30 | NUR ---
RECIEVED PT FROM ICU. PT IS AAO AND BEDFAST. RR EVEN AND UNLABORED ON RA. FRANK IN PLACE. FSBS @1130 WAS 257 AND PT RECIEVED ORDERED 10 UNITS OF REGULAR INSULIN. RESTARTED INFUSION OF 40MEQ NS @50ML/HR VIA R.WRIST PIV. PT DENIES ANY NEEDS. WILL CTM.
--- NOTE | 2018-02-14 14:29 | NUR ---
POTASSIUM TREATED AND REDRAW ORDER PLACED FOR 190
--- NOTE | 2018-02-14 16:48 | NUR ---
PT LYING ON RIGHT SIDE. CALL LIGHT W/I REACH. PT IS AAO AND BEDFAST. NS WITH 40MEQ INFUSING @50ML/HR VIA R.WRIST PIV. RR EVEN AND UNLABORED ON RADutch FRANK IN PLACE. PT DENIES ANY NEEDS. WILL CTM.
[2018-02-14 17:07] VITALS: BP 90/57
--- NOTE | 2018-02-14 18:25 | NUR ---
PT LYING SEMI FOWLERS. CALL LIGHT W/I REACH. PT DENIES ANY NEEDS. RR EVEN AND UNLABORED ON 2L 02. WILL PASS REPORT AND CONTINUE WITH POC.
--- NOTE | 2018-02-14 19:30 | NUR ---
RECEIVED REPORT, WILL ASSUME CARE OF PT, ASSISTED PT TO GET CLEANED UP, ALSO REPOSTIONED PT, SISTER AT BED SIDE, BED IS LOW, SRX2, CALL LIGHT IN REACH, WILL CONTINUE PLAN OF CARE
[2018-02-14 19:59] VITALS: BP 97/54
--- NOTE | 2018-02-14 21:15 | NUR ---
K+ 3.3 FOLLOW EP, GAVE 40MEQ K+
[2018-02-14 23:45] VITALS: BP 98/60
--- NOTE | 2018-02-15 03:29 | NUR ---
RESTING IN BED WITH NO DISTRESS. RESPS NONLABORED. CALL LIGHT IN REACH. MONITOR AND CPOC.
[2018-02-15 03:45] VITALS: BP 95/57
[2018-02-15 04:59] LABS: BASOPHILS 1.2 % (0-2); EOSINOPHILS 2.3 % (0-7); HEMATOCRIT 35.1 % (36.0-48.0); IMMATURE GRANULOCYTES 1.6 % (0-5); LYMPHOCYTES 35.9 % (15-50); MCH 29.2 pg (26.0-34.0); MCHC 34.2 g/dL (31.0-37.0); MEAN PLATELET VOLUME 10.2 fL (7.4-10.4); MONOCYTES 6.1 % (2-11); NEUTROPHILS 52.9 % (40-80); PLATELET COUNT 397 10x3/uL (130-400); RBC 4.11 10x6/uL (4.00-5.40); WBC 8.7 10x3/uL (4.8-10.8)
[2018-02-15 05:17] LABS: MCV 85.4 fL (80.0-100.0)
[2018-02-15 05:19] LABS: CALC OSMOLALITY 284 mosm/kg (275-300); CALCIUM 8.2 mg/dL (8.5-10.1); CARBON DIOXIDE 31.6 mmol/L (21.0-32.0); CHLORIDE - SERUM 103 mmol/L (98-107); CREATININE - SERUM 0.6 mg/dL (0.6-1.3); POTASSIUM - SERUM 3.7 mmol/L (3.5-5.1); SODIUM 141 mmol/L (136-145); UREA NITROGEN 5 mg/dL (7-18); eGFR NON AFRICAN AMERICAN > 90 mL/min (90-120)
[2018-02-15 05:26] LABS: GLUCOSE 227 mg/dL (74-106)
--- NOTE | 2018-02-15 07:31 | NUR ---
REPORT RECIEVED. WILL CONTINUE WITH POC. PT CURRENTLY LYING SEMI FOWLERS. CALL LIGHT W/I REACH. FAMILY AT BEDSIDE. 40MEQ POTASSIUM WITH NS INFUSING @50ML/HR VIA R.WRIST PIV. RR EVEN AND UNLABORED ON RA. PT IS RESTING AT THE MOMENT. WILL CTM.
[2018-02-15 08:41] VITALS: BP 92/57
--- NOTE | 2018-02-15 09:31 | NUR ---
RESTING QUIETLY NAD NOTED
[2018-02-15] MEDS ORDERED: THERAGRAN M [BK1 TAB PO (10:34)
--- NOTE | 2018-02-15 11:11 | NUR ---
Nutrition follow-up: Diet: ADA consistent CHO PO Intake 100% of most meals Labs reviewed Wt: 165# +BM RDN following.
[2018-02-15 12:16] VITALS: BP 98/59
[2018-02-15 16:31] VITALS: BP 85/53
--- NOTE | 2018-02-15 17:53 | NUR ---
PT CLEANED AND TURNED. NYSTATIN APPLIED. NEW STAT ROSE PLACED. FRANK IN PLACE. PT DENIES ANY NEEDS. WILL CTM.
[2018-02-15 19:00] VITALS: BP 103/63
--- NOTE | 2018-02-15 19:44 | NUR ---
RECEIVED REPORT, WILL ASSUME CARE OF PT, ASSISTED PT OFF OF BED RENO, DENIES ANY OTHER NEEDS, BED IS LOW, SRX2, CALL LIGHT IN REACH, WILL CONTINUE PLAN OF CARE
[2018-02-16 00:23] VITALS: BP 92/57
--- NOTE | 2018-02-16 04:12 | NUR ---
DRAG SEINER AT BEDSIDE TO OBTAIN VITALS, CALL LIGHT IN REACH. WILL CONTINUE WITH PLAN OF CARE.
[2018-02-16 05:03] VITALS: BP 94/57
[2018-02-16 06:06] LABS: CALCIUM 9.2 mg/dL (8.5-10.1); CARBON DIOXIDE 33.1 mmol/L (21.0-32.0); CHLORIDE - SERUM 100 mmol/L (98-107); CREATININE - SERUM 0.5 mg/dL (0.6-1.3); POTASSIUM - SERUM 3.9 mmol/L (3.5-5.1); SODIUM 140 mmol/L (136-145); eGFR NON AFRICAN AMERICAN > 90 mL/min (90-120)
[2018-02-16 06:11] LABS: CALC OSMOLALITY 277 mosm/kg (275-300); GLUCOSE 91 mg/dL (74-106); UREA NITROGEN 9 mg/dL (7-18)
--- NOTE | 2018-02-16 07:57 | NUR ---
CHIEF ESTIMATOR AT BS. CALL LIGHT IN REACH. WILL CONT. PLAN OF CARE.
--- NOTE | 2018-02-16 08:00 | NUR ---
RECEIVED A/A/OX4. DENIES ANY PAIN, DISCOMFORT OR SOB. RESP EVEN AND UNLABORED. ASSESSMENT COMPLETED. NO REQUESTS VOICED. BED IN LOW POSITION AND CALL LIGHT IN REACH.
[2018-02-16 08:35] VITALS: BP 86/53
[2018-02-16 13:20] VITALS: BP 104/61
--- NOTE | 2018-02-16 18:00 | NUR ---
SITTING UP IN BED VISITING WITH HER PARENTS. NO REQUESTS. HAD VERY LARGE STOOL THIS AFTERNOON AND BATHED GOOD AND NYSTATIN POWDER APPLIED.
--- NOTE | 2018-02-16 19:16 | NUR ---
PT RESTING IN BED WITH EYES CLOSED. RR EVEN AND UL. NO S/S OF DISTRESS. PT AROUSES EASILY TO NOISE. PT COMPLAINT OF ITCHINESS AROUND ABDOMEN, ADMINISTED PRESCRIBED MEDICATION FOR YEAST, PT STATES SOME RELIEF. A/0 X4. REPOSITION LEFT SIDE OF ARM AND PLACED ROLLED TOWEL IN PTS HAND TO HELP WITH STIFFNESS DUE TO L SIDE HEMIPARESIS. PT DENIES FURTHER NEEDS. WILL CONTINUE TO FOLLOW POC AND OBSERVE. CALL LIGHT WITHIN REACH ON R SIDE OF BED, SR UP X2. BED IN LOWEST POSITION.
[2018-02-16 19:45] VITALS: BP 85/52
[2018-02-16 23:30] VITALS: BP 95/55
--- NOTE | 2018-02-17 00:20 | NUR ---
PT REQUEST PESCRIBED ANALGESIC AND ANTIANXIETY MEICATION AT SAME TIME. PT STATES "IT HELPS ME SLEEP BETTER IF I TAKE BOTH AT THE SAME TIME. ADMINISTERED PER ORDER. DIMMED LIGHTS AND DEC STIMULI. WILL CONTINUE TO ASSESS NEEDS. CL IIN REACH, SR UP X2.
[2018-02-17 04:05] VITALS: BP 100/66
[2018-02-17 08:40] LABS: BASOPHILS 0.8 % (0-2); EOSINOPHILS 2.5 % (0-7); HEMATOCRIT 38.8 % (36.0-48.0); HEMOGLOBIN 12.9 g/dL (12-16); IMMATURE GRANULOCYTES 3.6 % (0-5); LYMPHOCYTES 35.5 % (15-50); MCH 29.9 pg (26.0-34.0); MCHC 33.2 g/dL (31.0-37.0); MCV 89.8 fL (80.0-100.0); MEAN PLATELET VOLUME 10.5 fL (7.4-10.4); MONOCYTES 6.1 % (2-11); NEUTROPHILS 51.5 % (40-80); PLATELET COUNT 354 10x3/uL (130-400); RBC 4.32 10x6/uL (4.00-5.40); RDW 12.9 % (11.5-14.5); WBC 12.7 10x3/uL (4.8-10.8)
[2018-02-17 08:54] LABS: ALBUMIN 2.1 g/dL (3.4-5.0); ALKALINE PHOSPHATASE 106 U/L (46-116); ALT (SGPT) 28 U/L (10-68); BILIRUBIN - TOTAL 0.12 mg/dL (0.2-1.3); CALC OSMOLALITY 275 mosm/kg (275-300); CALCIUM 8.9 mg/dL (8.5-10.1); CARBON DIOXIDE 31.3 mmol/L (21.0-32.0); CHLORIDE - SERUM 99 mmol/L (98-107); CREATININE - SERUM 0.7 mg/dL (0.6-1.3); GLUCOSE 158 mg/dL (74-106); PHOSPHOROUS 3.9 mg/dL (2.5-4.9); POTASSIUM - SERUM 4.2 mmol/L (3.5-5.1); PROTEIN - SERUM 7.4 g/dL (6.4-8.2); SODIUM 137 mmol/L (136-145); UREA NITROGEN 10 mg/dL (7-18); eGFR NON AFRICAN AMERICAN > 90 mL/min (90-120)
--- NOTE | 2018-02-17 08:58 | NUR ---
CALLED AND SPOKE TO CHRISTINE IN THE LAB, REQUESTING SHE ADD A MAG LEVEL TO THIS MORNINGS LAB, WELL FOR THE NEXT 5 DAYS FOR THE PROTOCOL.
--- NOTE | 2018-02-17 09:14 | MORECARE ---
CASE MANAGEMENT DISCHARGE SUMMARY PATIENT: CHRISTINE NGUYEN UNIT: [id number] ADM DATE: 02/11/18 AGE: 42 : 73 SEX: F ROOM/BED: D.2170 AUTHOR: ABBEY ALVA PHYSICIAN: REFERRING PHYSICIAN: DREW DUMONT MD DATE OF SERVICE: 02/17/18 Discharge Plan Patient Name: CHRISTINE NGUYEN Facility: [facility]:[place] : 1975 Planned Disposition: Nursing Home Facility Anticipated Discharge Date: Discharge Date: Expected LOS: Initial Reviewer: [email or web address] Initial Review Date: 02/12/2018 Generated: 02/17/18 10:14 am Comments DCP- Discharge Planning Updated by [email or web address]: Misti Mccann on 02/12/18 5:[address] Patient Name: CHRISTINE NGUYEN Admission Status: ER Accout number: [id number] Admission Date: 02-11-2018 : 1975 Admission Diagnosis: Attending: DREW DUMONT Current LOS: 1 Anticipated DC Date: Planned Disposition: Nursing Home Facility Primary Insurance: MEDICARE A & B Discharge Planning Comments: CM spoke with patient at bedside. Patient states she knows she can't return to her home. She is totally dependent of all her ADLs she is can feed herself but that is about all. APS has been notified of case. Patient is requesting to discharge to [facility]. CM will contact [facility]. CM will fax records to [facility] for possible placement when stable. CM will continue to follow and assist with discharge planning / needs. Parts Sales Associate: Misti Mccann DCPIA - Discharge Planning Initial Assessment Updated by [email or web address]: Misti Mccann on 02/12/18 6:12 pm * Is the patient Alert and Oriented? Yes * PCP Dr. bueno * Pharmacy [place] or [facility] * Preadmission Environment Home with Family * ADLs Total Dependent * Equipment Wheelchair * List name and contact numbers for known caregivers / representatives who currently or will assist patient after discharge: Meggan Carlson mother [phone] * Verbal permission to speak to the caregivers and representatives has been obtained from the patient. N/A * Community resources currently utilized None * Additional services required to return to the preadmission environment? Yes * Can the patient safely return to the preadmission environment? No * Has this patient been hospitalized within the prior 30 days at any hospital? No External Providers External Provider: DEREJE Khan Next Contact Date: 02/17/2018 Service Request Date: Service Type: Resolution: Reviewer: Comments: Last DP export: 02/12/18 5:29 Patient Name: CHRISTINE NGUYEN Page 16315 at 0914 All edits/amendments must be made on the electronic document DICTATION DATE: 02/17/18913 COMBINATION MAN: KAYODE 02/17/18913 RPT#: [id number] DC DATE: STATUS: ADM IN [facility] [address] [place] [address] END OF REPORT
--- NOTE | 2018-02-17 09:31 | MORECARE ---
CASE MANAGEMENT DISCHARGE SUMMARY PATIENT: CHRISTINE NGUYEN UNIT: [id number] ADM DATE: 02/11/18 AGE: 42 : [birth year] SEX: F ROOM/BED: D.1769 AUTHOR: ABBEY ALVA PHYSICIAN: REFERRING PHYSICIAN: DREW DUMONT MD DATE OF SERVICE: 02/17/18 Discharge Plan Patient Name: CHRISTINE NGUYEN Facility: [facility]:[place] : 1975 Planned Disposition: Half-Way Facility Anticipated Discharge Date: Discharge Date: Expected LOS: Initial Reviewer: [id number] Initial Review Date: 02/12/2018 Generated: 02/17/18 10:31 am Comments DCP- Discharge Planning Updated by [id number]: Brock Chavez on 02/17/18 8:[address] Patient Name: CHRISTINE NGUYEN Encounter No: [id number] : 1975 Primary Insurance: MEDICARE A & B Anticipated DC Date: Planned Disposition: Half-Way Facility External Planned Provider[facility] DCP follow-up note: CM COMPLETED DONA THAT CM STARTED ON 02-15-18, DOCTOR AND PT SIGNATURES WERE OBTAINED. CM MET WITH PT IN ROOM TO DISCUSS DISCHARGE PLANNING AND NEEDS. PT REPORTS SHE IS NOT ABLE TO CARE FOR HERSELF AND HER PARENTS, WHOM SHE WAS LIVING WITH, ARE NOT ABLE TO EITHER. PT WOULD LIKE PLACMENT AT [facility]. PT HAS TALKED TO [facility] WHO TOLD HER THAT IT DEPENDS ON IF THE DOCTOR WILL TAKE HER BACK THERE OR NOT. PT REPORTS SHE HAS BEEN TO [facility], [facility] AND [facility] FOR REHAB AND REMOTE SENSING TECHNICIAN CARE IN THE PAST. PT LEFT THE [facility] IN FEBRUARY OR MARCH OF THIS YEAR AND MOVED IN WITH HER PARENTS. PT'S FIRST CHOICE FOR REHAB AND REMOTE SENSING TECHNICIAN CARE IS [facility], SECOND CHOICE IS THE [facility]. PT WILL NOT CONSIDER [facility] AGAIN. CHOICE COMPLETED AND SIGNED. IMPORTANT MESSAGE FROM MEDICARE PROVIDED AND DISCUSSED. PT REPORTS THE LAST DONA THAT WAS DONE THEY HAD TO DO A LEVEL 2 SCREENING. CM CALLED MARIXA OF [facility], , LEFT MESSAGE ASKING FOR RETURN CALL. CM FAXED REFERRAL TO [facility] AT [phone]. CM FAXED COMPLETED DONA SCREENING AND SUPPORTING DOCUMENTS TO [facility] AT [phone]. CM WAITING ADMISSION DETERMINATION FROM [facility] AND [facility]A SCREENING COMPLETION. Brock Chavez, CASE MANAGEMENT DCP- Discharge Planning Updated by [id number]: Misti Mccann on 02/12/18 5:[address] Patient Name: CHRISTINE NGUYEN Admission Status: ER Accout number: [id number] Admission Date: 02-11-2018 : 1975 Admission Diagnosis: Attending: DREW DUMONT Current LOS: 1 Anticipated DC Date: Planned Disposition: Half-Way Facility Primary Insurance: MEDICARE A & B Discharge Planning Comments: CM spoke with patient at bedside. Patient states she knows she can't return to her home. She is totally dependent of all her ADLs she is can feed herself but that is about all. APS has been notified of case. Patient is requesting to discharge to [facility]. CM will contact [facility]. CM will fax records to [facility] for possible placement when stable. CM will continue to follow and assist with discharge planning / needs. It Senior Analyst: Misti Mccann DCPIA - Discharge Planning Initial Assessment Updated by [id number]: Misti Mccann on 02/12/18 6:12 pm * Is the patient Alert and Oriented? Yes * PCP Dr. bueno * Pharmacy [facility] * Preadmission Environment Home with Family * ADLs Total Dependent * Equipment Wheelchair * List name and contact numbers for known caregivers / representatives who currently or will assist patient after discharge: Meggan Carlson mother [phone] * Verbal permission to speak to the caregivers and representatives has been obtained from the patient. N/A * Community resources currently utilized None * Additional services required to return to the preadmission environment? Yes * Can the patient safely return to the preadmission environment? No * Has this patient been hospitalized within the prior 30 days at any hospital? No External Providers External Provider: [facility] Next Contact Date: 02/17/2018 Service Request Date: Service Type: Resolution: Reviewer: Comments: Coverage Notice Reviewer: [id number] - Brock Chavez Notice Issued Date-Time: 02/17/2018 8:10 Notice Type: IM Discharge Notice Notice Delivered To: Patient Relationship to Patient: Tile Layer Supervisor Name: Delivery Method: HAND - Hand Delivered Lashonda Days: Prior Verbal Notification: Recipient Understood Notice: Yes Recipient Signature: Yes Med Rec Note Co-signed by Attending: Coverage Notice Comment: Reviewer: [id number] - Brock Chavez Notice Issued Date-Time: 02/17/2018 8:10 Notice Type: Patient Choice Letter Notice Delivered To: Patient Relationship to Patient: Tile Layer Supervisor Name: Delivery Method: HAND - Hand Delivered Lashonda Days: Prior Verbal Notification: Recipient Understood Notice: Yes Recipient Signature: Yes Med Rec Note Co-signed by Attending: Coverage Notice Comment: 1- [facility] / 2- THE Last DP export: 02/17/18 8:14 Patient Name: CHRISTINE NGUYEN Page 22019 at 0931 All edits/amendments must be made on the electronic document DICTATION DATE: 02/17/18929 SUPERVISOR ROVING: KAYODE 02/17/18929 RPT#: [id number] DC DATE: STATUS: ADM IN [facility] [address] [place] [address] END OF REPORT
--- NOTE | 2018-02-17 09:36 | NUR ---
RESTS IN BED WITH CALL LIGHT IN REACH. NURSE AT BS. WILL CONT. PLAN OF CARE.
[2018-02-17 09:51] VITALS: BP 110/53
--- NOTE | 2018-02-17 10:00 | MORECARE ---
CASE MANAGEMENT DISCHARGE SUMMARY PATIENT: CHRISTINE NGUYEN UNIT: [id number] ADM DATE: 02/11/18 AGE: 42 : [birth year] SEX: F ROOM/BED: D.2452 AUTHOR: ABBEY ALVA PHYSICIAN: REFERRING PHYSICIAN: DREW DUMONT MD DATE OF SERVICE: 02/17/18 Discharge Plan Patient Name: CHRISTINE NGUYEN Facility: [facility]:[place] : 1975 Planned Disposition: Prison Facility Anticipated Discharge Date: Discharge Date: Expected LOS: Initial Reviewer: [id number] Initial Review Date: 02/12/2018 Generated: 02/17/18 11:00 am Comments DCP- Discharge Planning Updated by [id number]: Brock Chavez on 02/17/18 8:[address] Patient Name: CHRISTINE NGUYEN Encounter No: [id number] : 1975 Primary Insurance: MEDICARE A & B Anticipated DC Date: Planned Disposition: Prison Facility External Planned Provider: [facility] DCP follow-up note: CM COMPLETED DONA THAT CM STARTED ON 02-15-18, DOCTOR AND PT SIGNATURES WERE OBTAINED. CM MET WITH PT IN ROOM TO DISCUSS DISCHARGE PLANNING AND NEEDS. PT REPORTS SHE IS NOT ABLE TO CARE FOR HERSELF AND HER PARENTS, WHOM SHE WAS LIVING WITH, ARE NOT ABLE TO EITHER. PT WOULD LIKE PLACMENT AT [facility]. PT HAS TALKED TO [facility] WHO TOLD HER THAT IT DEPENDS ON IF THE DOCTOR WILL TAKE HER BACK THERE OR NOT. PT REPORTS SHE HAS BEEN TO [facility], [facility] AND [facility] FOR REHAB AND FLEXBOARD OPERATOR CARE IN THE PAST. PT LEFT THE [facility] IN FEBRUARY OR MARCH OF THIS YEAR AND MOVED IN WITH HER PARENTS. PT'S FIRST CHOICE FOR REHAB AND FLEXBOARD OPERATOR CARE IS [facility], SECOND CHOICE IS THE [facility]. PT WILL NOT CONSIDER [facility] AGAIN. CHOICE COMPLETED AND SIGNED. IMPORTANT MESSAGE FROM MEDICARE PROVIDED AND DISCUSSED. PT REPORTS THE LAST DONA THAT WAS DONE THEY HAD TO DO A LEVEL 2 SCREENING. CM CALLED MARIXA OF [facility], , LEFT MESSAGE ASKING FOR RETURN CALL. CM FAXED REFERRAL TO [facility] AT [phone]. CM FAXED COMPLETED DONA SCREENING AND SUPPORTING DOCUMENTS TO [facility] AT [phone]. CM WAITING ADMISSION DETERMINATION FROM [facility] AND [facility] SCREENING COMPLETION. Brock Chavez, CASE MANAGEMENT Appended by Brock Chavez on 02/17/2018 9:57 ASTRONOMY PROFESSOR: CM RECEIVED CALL FROM MARIXA OF [facility], , WHO INSTRUCTED CM TO SEND THE REFERRAL AND THEIR DOCTOR AND DIRECTOR WILL LOOK AT IT TO MAKE ADMISSION DETERMINATION. REFERRAL PREVIOUSLY FAXED TODAY TO [facility] AT [phone]. CM WAITING ADMISSION DETERMINATION FROM [facility] AND [facility] SCREENING COMPLETION. Brock Chavez, CASE MANAGEMENT DCP- Discharge Planning Updated by [id number]: Misti Mccann on 02/12/18 5:[address] Patient Name: CHRISTINE NGUYEN Admission Status: ER Accout number: [id number] Admission Date: 02-11-2018 : 1975 Admission Diagnosis: Attending: DREW DUMONT Current LOS: 1 Anticipated DC Date: Planned Disposition: Prison Facility Primary Insurance: MEDICARE A & B Discharge Planning Comments: CM spoke with patient at bedside. Patient states she knows she can't return to her home. She is totally dependent of all her ADLs she is can feed herself but that is about all. APS has been notified of case. Patient is requesting to discharge to [facility] [place]. CM will contact [facility] [place]. CM will fax records to [facility] [place] [facility] for possible placement when stable. CM will continue to follow and assist with discharge planning / needs. Commercial Loan Specialist: Misti Mccann DCPIA - Discharge Planning Initial Assessment Updated by [id number]: Misti Mccann on 02/12/18 6:12 pm * Is the patient Alert and Oriented? Yes * PCP Dr. bueno * Pharmacy [place] or [facility] * Preadmission Environment Home with Family * ADLs Total Dependent * Equipment Wheelchair * List name and contact numbers for known caregivers / representatives who currently or will assist patient after discharge: Meggan Carlson mother [phone] * Verbal permission to speak to the caregivers and representatives has been obtained from the patient. N/A * Community resources currently utilized None * Additional services required to return to the preadmission environment? Yes * Can the patient safely return to the preadmission environment? No * Has this patient been hospitalized within the prior 30 days at any hospital? No Coverage Notice Reviewer: SAKINA Chavez Notice Issued Date-Time: 02/17/2018 8:10 Notice Type: IM Discharge Notice Notice Delivered To: Patient Relationship to Patient: Fur Finisher Seamstress Name: Delivery Method: HAND - Hand Delivered Lashonda Days: Prior Verbal Notification: Recipient Understood Notice: Yes Recipient Signature: Yes Med Rec Note Co-signed by Attending: Coverage Notice Comment: Reviewer: SAKINA Chavez Notice Issued Date-Time: 02/17/2018 8:10 Notice Type: Patient Choice Letter Notice Delivered To: Patient Relationship to Patient: Fur Finisher Seamstress Name: Delivery Method: HAND - Hand Delivered Lashonda Days: Prior Verbal Notification: Recipient Understood Notice: Yes Recipient Signature: Yes Med Rec Note Co-signed by Attending: Coverage Notice Comment: 1- [facility] / 2- THE Last DP export: 02/17/18 8:31 Patient Name: CHRISTINE NGUYEN Page [id number] at 1000 All edits/amendments must be made on the electronic document DICTATION DATE: 02/17/18958 STAFF ENGINEER: KAYODE 02/17/18958 RPT#: [id number] DC DATE: STATUS: ADM IN [facility] [address] [place] [address] END OF REPORT
[2018-02-17 14:12] VITALS: BP 105/66
--- NOTE | 2018-02-17 15:43 | NUR ---
CALLED TO REQUEST MORE NYSTOP POWDER FOR THE PATIENT FROM THE PHARMACY, REQUESTED 2 BOTTLES SENT
--- NOTE | 2018-02-17 15:51 | MORECARE ---
CASE MANAGEMENT DISCHARGE SUMMARY PATIENT: CHRISTINE NGUYEN UNIT: [id number] ADM DATE: 02/11/18 AGE: 42 : 73 SEX: F ROOM/BED: D.7512 AUTHOR: ABBEY ALVA PHYSICIAN: REFERRING PHYSICIAN: DREW DUMONT MD DATE OF SERVICE: 02/17/18 Discharge Plan Patient Name: CHRISTINE NGUYEN Facility: [facility]:[place] : 1975 Planned Disposition: Care Home Facility Anticipated Discharge Date: Discharge Date: Expected LOS: Initial Reviewer: [id number] Initial Review Date: 02/12/2018 Generated: 02/17/18 4:51 pm Comments DCP- Discharge Planning Updated by [id number]: Brock Chavez on 02/17/18 2:[address] Patient Name: CHRISTINE NGUYEN Encounter No: [id number] : 1975 Primary Insurance: MEDICARE A & B Anticipated DC Date: Planned Disposition: Care Home Facility External Planned Provider[facility] DCP follow-up note: CM COMPLETED DONA THAT CM STARTED ON 02-15-18, DOCTOR AND PT SIGNATURES WERE OBTAINED. CM MET WITH PT IN ROOM TO DISCUSS DISCHARGE PLANNING AND NEEDS. PT REPORTS SHE IS NOT ABLE TO CARE FOR HERSELF AND HER PARENTS, WHOM SHE WAS LIVING WITH, ARE NOT ABLE TO EITHER. PT WOULD LIKE PLACMENT AT [facility]. PT HAS TALKED TO [facility] WHO TOLD HER THAT IT DEPENDS ON IF THE DOCTOR WILL TAKE HER BACK THERE OR NOT. PT REPORTS SHE HAS BEEN TO [facility] AND [facility] FOR REHAB AND FPC CARE IN THE PAST. PT LEFT THE [facility] IN FEBRUARY OR MARCH OF THIS YEAR AND MOVED IN WITH HER PARENTS. PT'S FIRST CHOICE FOR REHAB AND COMBINE MECHANIC CARE IS [facility], SECOND CHOICE IS THE [facility]. PT WILL NOT CONSIDER [facility] AGAIN. CHOICE COMPLETED AND SIGNED. IMPORTANT MESSAGE FROM MEDICARE PROVIDED AND DISCUSSED. PT REPORTS THE LAST DONA THAT WAS DONE THEY HAD TO DO A LEVEL 2 SCREENING. CM CALLED MARIXA OF [facility], , LEFT MESSAGE ASKING FOR RETURN CALL. CM FAXED REFERRAL TO [facility] AT [phone]. CM FAXED COMPLETED DONA SCREENING AND SUPPORTING DOCUMENTS TO [facility] AT [phone]. CM WAITING ADMISSION DETERMINATION FROM [facility] AND DONA SCREENING COMPLETION. Brock Chavez, CASE MANAGEMENT Appended by Brock Chavez on 02/17/2018 9:57 OPTICAL GLASS INSPECTOR: CM RECEIVED CALL FROM MARIXA OF [facility], , WHO INSTRUCTED CM TO SEND THE REFERRAL AND THEIR DOCTOR AND DIRECTOR WILL LOOK AT IT TO MAKE ADMISSION DETERMINATION. REFERRAL PREVIOUSLY FAXED TODAY TO [facility] AT [phone]. CM WAITING ADMISSION DETERMINATION FROM [facility] AND DONA SCREENING COMPLETION. Brock Chavez CASE MANAGEMENT Appended by Brock Chavez on 02/17/2018 15:44 OPTICAL GLASS INSPECTOR: CM RECEIVED DONA SCREENING RESPONSE, PT WILL REQUIRE LEVEL 2 SCREENING WHICH MAY TAKE UP TO 9 (NINE) BUSINESS DAYS TO COMPLETE. CM FAXED [facility]A DETERMINATION REQUIRING LEVEL 2 SCREEN TO [facility] AT [phone]. CM WAITING ADMISSION DETERMINATION FROM [facility] AND [facility] LEVEL 2 SCREENING COMPLETION WHICH CAN TAKE UP TO 9 (NINE) BUSINESS DAYS. Brock Chavez, CASE MANAGEMENT DCP- Discharge Planning Updated by [id number]: Misti Mccann on 02/12/18 5:[address] Patient Name: CHRISTINE NGUYEN Admission Status: ER Accout number: [id number] Admission Date: 02-11-2018 : 1975 Admission Diagnosis: Attending: DREW DUMONT Current LOS: 1 Anticipated DC Date: Planned Disposition: Care Home Facility Primary Insurance: MEDICARE A & B Discharge Planning Comments: CM spoke with patient at bedside. Patient states she knows she can't return to her home. She is totally dependent of all her ADLs she is can feed herself but that is about all. APS has been notified of case. Patient is requesting to discharge to [facility]. CM will contact [facility]. CM will fax records to [facility] for possible placement when stable. CM will continue to follow and assist with discharge planning / needs. Bus Aide: Misti Mccann DCPIA - Discharge Planning Initial Assessment Updated by [id number]: Misti Mccann on 02/12/18 6:12 pm * Is the patient Alert and Oriented? Yes * PCP Dr. bueno * Pharmacy [place] or [facility] * Preadmission Environment Home with Family * ADLs Total Dependent * Equipment Wheelchair * List name and contact numbers for known caregivers / representatives who currently or will assist patient after discharge: Meggan lorenzana [phone] * Verbal permission to speak to the caregivers and representatives has been obtained from the patient. N/A * Community resources currently utilized None * Additional services required to return to the preadmission environment? Yes * Can the patient safely return to the preadmission environment? No * Has this patient been hospitalized within the prior 30 days at any hospital? No Coverage Notice Reviewer: [id number] Chavez Notice Issued Date-Time: 02/17/2018 8:10 Notice Type: IM Discharge Notice Notice Delivered To: Patient Relationship to Patient: Food Vendor Name: Delivery Method: HAND - Hand Delivered Lashonda Days: Prior Verbal Notification: Recipient Understood Notice: Yes Recipient Signature: Yes Med Rec Note Co-signed by Attending: Coverage Notice Comment: Reviewer: SAKINA Chavez Notice Issued Date-Time: 02/17/2018 8:10 Notice Type: Patient Choice Letter Notice Delivered To: Patient Relationship to Patient: Food Vendor Name: Delivery Method: HAND - Hand Delivered Lashonda Days: Prior Verbal Notification: Recipient Understood Notice: Yes Recipient Signature: Yes Med Rec Note Co-signed by Attending: Coverage Notice Comment: 1- [facility] / 2- THE Last DP export: 02/17/18 9:00 Patient Name: CHRISTINE NGUYEN Page 09607 at 1551 All edits/amendments must be made on the electronic document DICTATION DATE: 02/17/18 155 HAIR AND MAKEUP DESIGNER: KAYODE 02/17/18 155 RPT#: [id number] DC DATE: STATUS: ADM IN [facility] [address] [place] [address] END OF REPORT
--- NOTE | 2018-02-17 17:06 | NUR ---
CALLED AND SPOKE WITH SHERRY IN THE PHARMACY, REQUESTING NYSTOP POWDER AGAIN, SHE STATED "IT IS IN MY BUCKET", STATES SHE WILL BRING IT
[2018-02-17 19:00] VITALS: BP 105/69
--- NOTE | 2018-02-17 19:30 | NUR ---
INITIAL ROUNDS COMPLETED. PT A/0 X4. REPOSITIONED TO L SIDE, PILLOW UNDER LEFT ARM AND TOWEL ROLLED AND PLACED IN L HAND WHERE CONTRACTURE IS PRESENT. DENIES FURTHER NEEDS. FRANK DRAINING YELLOW URINE, CLEAN PADS UNDER PT. WILL CONTINUE TO ASSESS FURTHER AND FOLLOW POC. SR UP X2, CALL LIGHT IN REACH.
[2018-02-18 00:44] VITALS: BP 110/71
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
[2018-02-18 04:34] VITALS: BP 100/60
[2018-02-18 05:29] LABS: BASOPHILS 1.1 % (0-2); EOSINOPHILS 2.3 % (0-7); HEMATOCRIT 39.3 % (36.0-48.0); IMMATURE GRANULOCYTES 4.1 % (0-5); LYMPHOCYTES 37.9 % (15-50); MCH 29.9 pg (26.0-34.0); MCHC 33.1 g/dL (31.0-37.0); MCV 90.3 fL (80.0-100.0); MEAN PLATELET VOLUME 10.5 fL (7.4-10.4); MONOCYTES 7.2 % (2-11); NEUTROPHILS 47.4 % (40-80); RBC 4.35 10x6/uL (4.00-5.40); RDW 12.9 % (11.5-14.5); WBC 11.3 10x3/uL (4.8-10.8)
[2018-02-18 05:37] LABS: PLATELET COUNT 473 10x3/uL (130-400)
[2018-02-18 07:04] LABS: ALBUMIN 2.1 g/dL (3.4-5.0); ALKALINE PHOSPHATASE 104 U/L (46-116); ALT (SGPT) 32 U/L (10-68); BILIRUBIN - TOTAL 0.22 mg/dL (0.2-1.3); CALC OSMOLALITY 271 mosm/kg (275-300); CALCIUM 8.9 mg/dL (8.5-10.1); CARBON DIOXIDE 29.2 mmol/L (21.0-32.0); CHLORIDE - SERUM 97 mmol/L (98-107); CREATININE - SERUM 0.6 mg/dL (0.6-1.3); GLUCOSE 177 mg/dL (74-106); PHOSPHOROUS 3.8 mg/dL (2.5-4.9); POTASSIUM - SERUM 4.6 mmol/L (3.5-5.1); PROTEIN - SERUM 6.4 g/dL (6.4-8.2); SODIUM 134 mmol/L (136-145); eGFR NON AFRICAN AMERICAN > 90 mL/min (90-120)
[2018-02-18 07:08] LABS: UREA NITROGEN 13 mg/dL (7-18)
[2018-02-18 08:48] VITALS: BP 110/58
[2018-02-18 12:00] VITALS: BP 118/67
--- NOTE | 2018-02-18 14:46 | NUR ---
ALERT AND ORIENTED X4. LAYING IN BED. BOYFRIEND AT BEDSIDE WITH DOOR OPEN INSTRUCTED. DENIES ANY NEEDS. CONTINUE PLAN OF CARE AND SAFETY PRECAUTIONS.
--- NOTE | 2018-02-18 16:36 | NUR ---
ASSISTED THE PATIENT INTO THE SHOWER WITH THE HELP OF ADAMARIS FROM PT. PATIENT ASSISTED TO WASH HAIR, BRUSH TEETH, AND WASH BODY. ASSISTED TO THE BEDSIDE CHAIR. COMPLETE BED LINEN CHANGE
--- NOTE | 2018-02-18 17:23 | NUR ---
PT CONTINUES TO SIT IN THE BEDSIDE CHAIR.
--- NOTE | 2018-02-18 17:47 | NUR ---
ASSISTED THE PATIENT BACK TO BED
[2018-02-18 18:45] VITALS: BP 100/58
[2018-02-18 20:00] VITALS: BP 107/67
--- NOTE | 2018-02-18 20:00 | NUR ---
REPORT RECEIVED, CARE ASSUMED. INTRODUCED SELF TO PT, NO NEEDS VOICED AT THIS TIME. INITIAL ASSESSMENT COMPLETED, SEE FLOWSHEET. NO SIGNS OF ACUTE DISTRESS. WILL CONTINUE TO MONITOR.
[2018-02-19] VITALS: BP 108/66
--- NOTE | 2018-02-19 03:45 | NUR ---
PT APPEARS TO BE SLEEPING AT THIS TIME. NO SIGNS OF ACUTE DISTRESS. NO NEEDS VOICED. WILL CONTINUE TO MONITOR.
[2018-02-19 04:00] VITALS: BP 91/54
[2018-02-19 04:22] LABS: BASOPHILS 0.8 % (0-2); EOSINOPHILS 1.7 % (0-7); HEMATOCRIT 39.5 % (36.0-48.0); HEMOGLOBIN 12.8 g/dL (12-16); IMMATURE GRANULOCYTES 3.9 % (0-5); LYMPHOCYTES 35.3 % (15-50); MCH 29.6 pg (26.0-34.0); MCHC 32.4 g/dL (31.0-37.0); MCV 91.2 fL (80.0-100.0); MEAN PLATELET VOLUME 10.1 fL (7.4-10.4); MONOCYTES 6.8 % (2-11); NEUTROPHILS 51.5 % (40-80); PLATELET COUNT 488 10x3/uL (130-400); RBC 4.33 10x6/uL (4.00-5.40); RDW 12.6 % (11.5-14.5); WBC 9.9 10x3/uL (4.8-10.8)
[2018-02-19 04:44] LABS: ALBUMIN 2.1 g/dL (3.4-5.0); ALKALINE PHOSPHATASE 114 U/L (46-116); ALT (SGPT) 28 U/L (10-68); CALC OSMOLALITY 276 mosm/kg (275-300); CALCIUM 9.1 mg/dL (8.5-10.1); CARBON DIOXIDE 31.2 mmol/L (21.0-32.0); CHLORIDE - SERUM 99 mmol/L (98-107); CREATININE - SERUM 0.8 mg/dL (0.6-1.3); GLUCOSE 154 mg/dL (74-106); MAGNESIUM - SERUM 1.9 mg/dL (1.8-2.4); PHOSPHOROUS 4.1 mg/dL (2.5-4.9); POTASSIUM - SERUM 4.3 mmol/L (3.5-5.1); PROTEIN - SERUM 7.2 g/dL (6.4-8.2); SODIUM 136 mmol/L (136-145); UREA NITROGEN 17 mg/dL (7-18); eGFR NON AFRICAN AMERICAN 83 mL/min (90-120)
[2018-02-19 07:00] VITALS: BP 99/62
--- NOTE | 2018-02-19 07:25 | NUR ---
INITIAL ROUNDING, PATIENT RESTING WITH EYES CLOSED, AWAKENS EASILY, CAREGIVERS INTRODUCED, WILL CONTINUE TO MONITOR
--- NOTE | 2018-02-19 09:05 | NUR ---
DEVONTE AREA CLEANED AND DRIED, FRANK CARE PROVIDED, NYSTOP POWDER APPLIED TO ALL REDDENED AREAS IN DEVONTE AREA AND UNDER ABD FOLD. PATIENT REPOSITIONED IN BED TO HER RIGHT SIDE USING PILLOWS FOR SUPPORT.
--- NOTE | 2018-02-19 10:42 | MORECARE ---
CASE MANAGEMENT DISCHARGE SUMMARY PATIENT: CHRISTINE NGUYEN UNIT: [id number] ADM DATE: 02/11/18 AGE: 42 : 73 SEX: F ROOM/BED: D.6443 AUTHOR: ABBEY ALVA PHYSICIAN: REFERRING PHYSICIAN: DREW DUMONT MD DATE OF SERVICE: 02/19/18 Discharge Plan Patient Name: CHRISTINE NGUYEN Facility: [facility]:[place] : 1975 Planned Disposition: Chcf Facility Anticipated Discharge Date: Discharge Date: Expected LOS: Initial Reviewer: [id number] Initial Review Date: 02/12/2018 Generated: 02/19/18 11:42 am Comments DCP- Discharge Planning Updated by [email or web address]: Brock Chavez on 02/17/18 2:[address] Patient Name: CHRISTINE NGUYEN Encounter No: [id number] : 1975 Primary Insurance: MEDICARE A & B Anticipated DC Date: Planned Disposition: [facility]cf Facility External Planned [facility] DCP follow-up note: CM COMPLETED DONA THAT CM STARTED ON 02-15-18, DOCTOR AND PT SIGNATURES WERE OBTAINED. CM MET WITH PT IN ROOM TO DISCUSS DISCHARGE PLANNING AND NEEDS. PT REPORTS SHE IS NOT ABLE TO CARE FOR HERSELF AND HER PARENTS, WHOM SHE WAS LIVING WITH, ARE NOT ABLE TO EITHER. PT WOULD LIKE PLACMENT AT [facility]. PT HAS TALKED TO [facility]LA [facility] WHO TOLD HER THAT IT DEPENDS ON IF THE DOCTOR WILL TAKE HER BACK THERE OR NOT. PT REPORTS SHE HAS BEEN TO [facility], [facility] AND [facility] FOR REHAB AND PAINTER PLATE CARE IN THE PAST. PT LEFT THE [facility] IN FEBRUARY OR MARCH OF THIS YEAR AND MOVED IN WITH HER PARENTS. PT'S FIRST CHOICE FOR REHAB AND PAINTER PLATE CARE IS [facility], SECOND CHOICE IS THE [facility]. PT WILL NOT CONSIDER [facility] AGAIN. CHOICE COMPLETED AND SIGNED. IMPORTANT MESSAGE FROM MEDICARE PROVIDED AND DISCUSSED. PT REPORTS THE LAST DONA THAT WAS DONE THEY HAD TO DO A LEVEL 2 SCREENING. CM CALLED MARIXA OF [facility], , LEFT MESSAGE ASKING FOR RETURN CALL. CM FAXED REFERRAL TO [facility] AT [phone]. CM FAXED COMPLETED DONA SCREENING AND SUPPORTING DOCUMENTS TO [facility] AT [phone]. CM WAITING ADMISSION DETERMINATION FROM [facility] AND DONA SCREENING COMPLETION. Brock Chavez, CASE MANAGEMENT Appended by Brock Chavez on 02/17/2018 9:57 ORTHOPEDIC CAST SPECIALIST: CM RECEIVED CALL FROM MARIXA OF [facility], , WHO INSTRUCTED CM TO SEND THE REFERRAL AND THEIR DOCTOR AND DIRECTOR WILL LOOK AT IT TO MAKE ADMISSION DETERMINATION. REFERRAL PREVIOUSLY FAXED TODAY TO [facility] AT [phone]. CM WAITING ADMISSION DETERMINATION FROM [facility] AND DONA SCREENING COMPLETION. Brock Chavez CASE MANAGEMENT Appended by Brock Chavez on 02/17/2018 15:44 ORTHOPEDIC CAST SPECIALIST: CM RECEIVED DONA SCREENING RESPONSE, PT WILL REQUIRE LEVEL 2 SCREENING WHICH MAY TAKE UP TO 9 (NINE) BUSINESS DAYS TO COMPLETE. CM FAXED DONA DETERMINATION REQUIRING LEVEL 2 SCREEN TO [facility] AT [phone]. CM WAITING ADMISSION DETERMINATION FROM [facility] AND DONA LEVEL 2 SCREENING COMPLETION WHICH CAN TAKE UP TO 9 (NINE) BUSINESS DAYS. Brock Chavez, CASE MANAGEMENT DCP- Discharge Planning Updated by [id number]: Misti Mccann on 02/12/18 5:[address] Patient Name: CHRISTINE NGUYEN Admission Status: ER Accout number: [id number] Admission Date: 02-11-2018 : 1975 Admission Diagnosis: Attending: DREW DUMONT Current LOS: 1 Anticipated DC Date: Planned Disposition: Chcf Facility Primary Insurance: MEDICARE A & B Discharge Planning Comments: CM spoke with patient at bedside. Patient states she knows she can't return to her home. She is totally dependent of all her ADLs she is can feed herself but that is about all. APS has been notified of case. Patient is requesting to discharge to [facility]. CM will contact [facility]. CM will fax records to [facility] for possible placement when stable. CM will continue to follow and assist with discharge planning / needs. General Assistant: Misti Mccann DCPIA - Discharge Planning Initial Assessment Updated by [email or web address]: Misti Mccann on 02/12/18 6:12 pm * Is the patient Alert and Oriented? Yes * PCP Dr. bueno * Pharmacy [facility] * Preadmission Environment Home with Family * ADLs Total Dependent * Equipment Wheelchair * List name and contact numbers for known caregivers / representatives who currently or will assist patient after discharge: Meggan lorenzana [phone] * Verbal permission to speak to the caregivers and representatives has been obtained from the patient. N/A * Community resources currently utilized None * Additional services required to return to the preadmission environment? Yes * Can the patient safely return to the preadmission environment? No * Has this patient been hospitalized within the prior 30 days at any hospital? No Coverage Notice Reviewer: [id number] Chavez Notice Issued Date-Time: 02/17/2018 8:10 Notice Type: IM Discharge Notice Notice Delivered To: Patient Relationship to Patient: Commercial Construction Superintendent Name: Delivery Method: HAND - Hand Delivered Lashonda Days: Prior Verbal Notification: Recipient Understood Notice: Yes Recipient Signature: Yes Med Rec Note Co-signed by Attending: Coverage Notice Comment: Reviewer: SAKINA Chavez Notice Issued Date-Time: 02/17/2018 8:10 Notice Type: Patient Choice Letter Notice Delivered To: Patient Relationship to Patient: Commercial Construction Superintendent Name: Delivery Method: HAND - Hand Delivered Lashonda Days: Prior Verbal Notification: Recipient Understood Notice: Yes Recipient Signature: Yes Med Rec Note Co-signed by Attending: Coverage Notice Comment: 1- [facility] / 2- THE Last DP export: 02/17/18 2:51 Patient Name: CHRISTINE NGUYEN Page 24813 at 1042 All edits/amendments must be made on the electronic document DICTATION DATE: 02/19/18 1042 ATHLETIC SCOUT: KAYODE 02/19/18 1042 RPT#: [id number] DC DATE: STATUS: ADM IN [facility] [address] [place] [address] END OF REPORT
--- NOTE | 2018-02-19 10:55 | NUR ---
Nutrition follow-up: Diet: ADA consistent CHO PO intake 75-100% of meals labs reivewed +BM Wt: 164# RDN following.
--- NOTE | 2018-02-19 13:52 | NUR ---
BED ALARM IS SET.
[2018-02-19 13:57] VITALS: BP 108/65
--- NOTE | 2018-02-19 14:06 | MORECARE ---
CASE MANAGEMENT DISCHARGE SUMMARY PATIENT: CHRISTINE NGUYEN UNIT: [id number] ADM DATE: 02/11/18 AGE: 42 : 73 SEX: F ROOM/BED: D.2137 AUTHOR: ABBEY ALVA PHYSICIAN: REFERRING PHYSICIAN: DREW DUMONT MD DATE OF SERVICE: 02/19/18 Discharge Plan Patient Name: CHRISTINE NGUYEN Facility: [facility]:[place] : 1975 Planned Disposition: Fpc Facility Anticipated Discharge Date: Discharge Date: Expected LOS: Initial Reviewer: [id number] Initial Review Date: 02/12/2018 Generated: 02/19/18 3:05 pm Comments DCP- Discharge Planning Updated by [email or web address]: Brock Chavez on 02/17/18 2:[address] Patient Name: CHRISTINE NGUYEN Encounter No: [id number] : 1975 Primary Insurance: MEDICARE A & B Anticipated DC Date: Planned Disposition: [facility]pc Facility External Planned Provider[facility] DCP follow-up note: CM COMPLETED DONA THAT CM STARTED ON 02-15-18, DOCTOR AND PT SIGNATURES WERE OBTAINED. CM MET WITH PT IN ROOM TO DISCUSS DISCHARGE PLANNING AND NEEDS. PT REPORTS SHE IS NOT ABLE TO CARE FOR HERSELF AND HER PARENTS, WHOM SHE WAS LIVING WITH, ARE NOT ABLE TO EITHER. PT WOULD LIKE PLACMENT AT [facility]. PT HAS TALKED TO [facility] WHO TOLD HER THAT IT DEPENDS ON IF THE DOCTOR WILL TAKE HER BACK THERE OR NOT. PT REPORTS SHE HAS BEEN TO [facility], [facility] AND [facility] FOR REHAB AND RETIREMENT CARE IN THE PAST. PT LEFT THE [facility] IN FEBRUARY OR MARCH OF THIS YEAR AND MOVED IN WITH HER PARENTS. 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 PT WILL NOT CONSIDER [facility] AGAIN. CHOICE COMPLETED AND SIGNED. IMPORTANT MESSAGE FROM MEDICARE PROVIDED AND DISCUSSED. PT REPORTS THE LAST DONA THAT WAS DONE THEY HAD TO DO A LEVEL 2 SCREENING. CM CALLED MARIXA OF [facility], , LEFT MESSAGE ASKING FOR RETURN CALL. CM FAXED REFERRAL TO [facility] AT [phone]. CM FAXED COMPLETED DONA SCREENING AND SUPPORTING DOCUMENTS TO [facility] AT [phone]. CM WAITING ADMISSION DETERMINATION FROM [facility] AND DONA SCREENING COMPLETION. Brock Chavez, CASE MANAGEMENT Appended by Brock Chavez on 02/17/2018 9:57 PROGRAM WRITER: CM RECEIVED CALL FROM MARIXA OF [facility], , WHO INSTRUCTED CM TO SEND THE REFERRAL AND THEIR DOCTOR AND DIRECTOR WILL LOOK AT IT TO MAKE ADMISSION DETERMINATION. REFERRAL PREVIOUSLY FAXED TODAY TO [facility] AT [phone]. CM WAITING ADMISSION DETERMINATION FROM [facility] AND DONA SCREENING COMPLETION. Brock Chavez CASE MANAGEMENT Appended by Brock Chavez on 02/17/2018 15:44 PROGRAM WRITER: CM RECEIVED DONA SCREENING RESPONSE, PT WILL REQUIRE LEVEL 2 SCREENING WHICH MAY TAKE UP TO 9 (NINE) BUSINESS DAYS TO COMPLETE. CM FAXED DONA DETERMINATION REQUIRING LEVEL 2 SCREEN TO [facility] AT [phone]. CM WAITING ADMISSION DETERMINATION FROM [facility] AND DONA LEVEL 2 SCREENING COMPLETION WHICH CAN TAKE UP TO 9 (NINE) BUSINESS DAYS. Brock Chavez, CASE MANAGEMENT DCP- Discharge Planning Updated by [id number]: Misti Mccann on 02/12/18 5:[address] Patient Name: CHRISTINE NGUYEN Admission Status: ER Accout number: [id number] Admission Date: 02-11-2018 : 1975 Admission Diagnosis: Attending: DREW DUMONT Current LOS: 1 Anticipated DC Date: Planned Disposition: Fpc Facility Primary Insurance: MEDICARE A & B Discharge Planning Comments: CM spoke with patient at bedside. Patient states she knows she can't return to her home. She is totally dependent of all her ADLs she is can feed herself but that is about all. APS has been notified of case. Patient is requesting to discharge to [facility]. CM will contact [facility]. CM will fax records to [facility] for possible placement when stable. CM will continue to follow and assist with discharge planning / needs. Medical Officer Psychiatry: Misti Mccann DCPIA - Discharge Planning Initial Assessment Updated by [id number]: Misti Mccann on 02/12/18 6:12 pm * Is the patient Alert and Oriented? Yes * PCP Dr. bueno * Pharmacy [facility] * Preadmission Environment Home with Family * ADLs Total Dependent * Equipment Wheelchair * List name and contact numbers for known caregivers / representatives who currently or will assist patient after discharge: Meggan lorenzana [phone] * Verbal permission to speak to the caregivers and representatives has been obtained from the patient. N/A * Community resources currently utilized None * Additional services required to return to the preadmission environment? Yes * Can the patient safely return to the preadmission environment? No * Has this patient been hospitalized within the prior 30 days at any hospital? No External Providers External Provider: [facility] Next Contact Date: 02/19/2018 Service Request Date: Service Type: Resolution: Reviewer: Comments: [facility] Next Contact Date: 02/19/2018 Service Request Date: Service Type: Resolution: Reviewer: Comments: External Provider: [facility] Next Contact Date: 02/19/2018 Service Request Date: Service Type: Resolution: Reviewer: Comments: [facility] Next Contact Date: 02/17/2018 Service Request Date: Service Type: Resolution: Reviewer: Comments: Coverage Notice Reviewer: [id number] Chavez Notice Issued Date-Time: 02/17/2018 8:10 Notice Type: IM Discharge Notice Notice Delivered To: Patient Relationship to Patient: Farm Equipment Mechanic Apprentice Name: Delivery Method: HAND - Hand Delivered Lashonda Days: Prior Verbal Notification: Recipient Understood Notice: Yes Recipient Signature: Yes Med Rec Note Co-signed by Attending: Coverage Notice Comment: Reviewer: [id number] Chavez Notice Issued Date-Time: 02/17/2018 8:10 Notice Type: Patient Choice Letter Notice Delivered To: Patient Relationship to Patient: Farm Equipment Mechanic Apprentice Name: Delivery Method: HAND - Hand Delivered Lashonda Days: Prior Verbal Notification: Recipient Understood Notice: Yes Recipient Signature: Yes Med Rec Note Co-signed by Attending: Coverage Notice Comment: 1- [facility] / 2- THE Last DP export: 02/19/18 9:42 Patient Name: CHRISTINE NGUYEN Page 28013 at 1406 All edits/amendments must be made on the electronic document DICTATION DATE: 02/19/181404 MACHINE DESIGN ENGINEER: KAYODE 02/19/181404 RPT#: [id number] [place] DATE: STATUS: ADM IN [facility] [address] [place] [address] END OF REPORT
--- NOTE | 2018-02-19 14:14 | MORECARE ---
CASE MANAGEMENT DISCHARGE SUMMARY PATIENT: CHRISTINE NGUYEN UNIT: [id number] ADM DATE: 02/11/18 AGE: 42 : 73 SEX: F ROOM/BED: D.2906 AUTHOR: ABBEY ALVA PHYSICIAN: REFERRING PHYSICIAN: DREW DUMONT MD DATE OF SERVICE: 02/19/18 Discharge Plan Patient Name: CHRISTINE NGUYEN Facility: [facility]:[place] : 1975 Planned Disposition: Correction Facility Anticipated Discharge Date: Discharge Date: Expected LOS: Initial Reviewer: [id number] Initial Review Date: 02/12/2018 Generated: 02/19/18 3:14 pm Comments DCP- Discharge Planning Updated by [id number]: Brock Chavez on 02/17/18 2:[address] Patient Name: CHRISTINE NGUYEN Encounter No: [id number] : 1975 Primary Insurance: MEDICARE A & B Anticipated DC Date: Planned Disposition: [facility] Facility External Planned Provider: [facility], MEDICARE REHAB BED DCP follow-up note: CM COMPLETED DONA THAT CM STARTED ON 02-15-18, DOCTOR AND PT SIGNATURES WERE OBTAINED. CM MET WITH PT IN ROOM TO DISCUSS DISCHARGE PLANNING AND NEEDS. PT REPORTS SHE IS NOT ABLE TO CARE FOR HERSELF AND HER PARENTS, WHOM SHE WAS LIVING WITH, ARE NOT ABLE TO EITHER. PT WOULD LIKE PLACMENT AT [facility]. PT HAS TALKED TO [facility] WHO TOLD HER THAT IT DEPENDS ON IF THE DOCTOR WILL TAKE HER BACK THERE OR NOT. PT REPORTS SHE HAS BEEN TO [facility], [facility] AND [facility] FOR REHAB AND GROUP HOME CARE IN THE PAST. PT LEFT THE [facility] IN FEBRUARY OR MARCH OF THIS YEAR AND MOVED IN WITH HER PARENTS. PT'S FIRST CHOICE FOR REHAB AND CEMENT [place] [address] [address] CARE IS [facility], SECOND CHOICE IS THE [facility]. PT WILL NOT CONSIDER [facility] AGAIN. CHOICE COMPLETED AND SIGNED. IMPORTANT MESSAGE FROM MEDICARE PROVIDED AND DISCUSSED. PT REPORTS THE LAST DONA THAT WAS DONE THEY HAD TO DO A LEVEL 2 SCREENING. CM CALLED MARIXA OF [facility], , LEFT MESSAGE ASKING FOR RETURN CALL. CM FAXED REFERRAL TO [facility] AT [phone]. CM FAXED COMPLETED DONA SCREENING AND SUPPORTING DOCUMENTS TO [facility] AT [phone]. CM WAITING ADMISSION DETERMINATION FROM [facility] AND DONA SCREENING COMPLETION. Brock Chavez, CASE MANAGEMENT Appended by Brock Chavez on 02/17/2018 9:57 MARKETING REP: CM RECEIVED CALL FROM MARIXA OF [facility], , WHO INSTRUCTED CM TO SEND THE REFERRAL AND THEIR DOCTOR AND DIRECTOR WILL LOOK AT IT TO MAKE ADMISSION DETERMINATION. REFERRAL PREVIOUSLY FAXED TODAY TO [facility] AT [phone]. CM WAITING ADMISSION DETERMINATION FROM [facility] AND DONA SCREENING COMPLETION. Brock Chavez CASE MANAGEMENT Appended by Brock Chavez on 02/17/2018 15:44 MARKETING REP: CM RECEIVED DONA SCREENING RESPONSE, PT WILL REQUIRE LEVEL 2 SCREENING WHICH MAY TAKE UP TO 9 (NINE) BUSINESS DAYS TO COMPLETE. CM FAXED DONA DETERMINATION REQUIRING LEVEL 2 SCREEN TO [facility] AT [phone]. CM WAITING ADMISSION DETERMINATION FROM [facility] AND DONA LEVEL 2 SCREENING COMPLETION WHICH CAN TAKE UP TO 9 (NINE) BUSINESS DAYS. Brock Chavez, CASE MANAGEMENT DCP- Discharge Planning Updated by [id number]: Misti Mccann on 02/12/18 5:[address] Patient Name: CHRISTINE NGUYEN Admission Status: ER Accout number: [id number] Admission Date: 02-11-2018 : 1975 Admission Diagnosis: Attending: DREW DUMONT Current LOS: 1 Anticipated DC Date: Planned Disposition: [facility] Facility Primary Insurance: MEDICARE A & B Discharge Planning Comments: CM spoke with patient at bedside. Patient states she knows she can't return to her home. She is totally dependent of all her ADLs she is can feed herself but that is about all. APS has been notified of case. Patient is requesting to discharge to [facility]. CM will contact [facility]. CM will fax records to [facility] for possible placement when stable. CM will continue to follow and assist with discharge planning / needs. Fur Trimming Machine Operator: Misti Mccann DCPIA - Discharge Planning Initial Assessment Updated by [email or web address]: Misti Mccann on 02/12/18 6:12 pm * Is the patient Alert and Oriented? Yes * PCP Dr. bueno * Pharmacy [facility] * Preadmission Environment Home with Family * ADLs Total Dependent * Equipment Wheelchair * List name and contact numbers for known caregivers / representatives who currently or will assist patient after discharge: Meggan lorenzana [phone] * Verbal permission to speak to the caregivers and representatives has been obtained from the patient. N/A * Community resources currently utilized None * Additional services required to return to the preadmission environment? Yes * Can the patient safely return to the preadmission environment? No * Has this patient been hospitalized within the prior 30 days at any hospital? No External Providers External Provider: [facility] Next Contact Date: 02/19/2018 Service Request Date: Service Type: Resolution: Reviewer: Comments: External Provider: [facility] Next Contact Date: 02/19/2018 Service Request Date: Service Type: Resolution: Reviewer: Comments: [facility] Contact Date: 02/19/2018 Service Request Date: Service Type: Resolution: Reviewer: Comments: [facility] Next Contact Date: 02/19/2018 Service Request Date: Service Type: Resolution: Reviewer: Comments: [facility] Next Contact Date: 02/19/2018 Service Request Date: Service Type: Resolution: Reviewer: Comments: Coverage Notice Reviewer: [id number] Sukumar Chavez Notice Issued Date-Time: 02/17/2018 8:10 Notice Type: IM Discharge Notice Notice Delivered To: Patient Relationship to Patient: Mobility Manager Name: Delivery Method: HAND - Hand Delivered Lashonda Days: Prior Verbal Notification: Recipient Understood Notice: Yes Recipient Signature: Yes Med Rec Note Co-signed by Attending: Coverage Notice Comment: Reviewer: [id number] Sukumar Chavez Notice Issued Date-Time: 02/17/2018 8:10 Notice Type: Patient Choice Letter Notice Delivered To: Patient Relationship to Patient: Mobility Manager Name: Delivery Method: HAND - Hand Delivered Lashonda Days: Prior Verbal Notification: Recipient Understood Notice: Yes Recipient Signature: Yes Med Rec Note Co-signed by Attending: Coverage Notice Comment: 1- [facility] / 2- [facility] DP export: 02/19/18 1:06 Patient Name: CHRISTINE NGUYEN Page 47931 at 1414 All edits/amendments must be made on the electronic document DICTATION DATE: 02/19/181413 FARM WORKER: KAYODE 02/19/181413 RPT#: [id number] DC DATE: STATUS: ADM IN [facility] [address] [place] [address] END OF REPORT
--- NOTE | 2018-02-19 14:38 | MORECARE ---
CASE MANAGEMENT DISCHARGE SUMMARY PATIENT: CHRISTINE NGUYEN UNIT: [id number] ADM DATE: 02/11/18 AGE: 42 : [birth year] SEX: F ROOM/BED: D.2700 AUTHOR: ABBEY ALVA PHYSICIAN: REFERRING PHYSICIAN: DREW DUMONT MD DATE OF SERVICE: 02/19/18 Discharge Plan Patient Name: CHRISTINE NGUYEN Facility: [facility]:[place] : 1975 Planned Disposition: [facility]fp Facility Anticipated Discharge Date: Discharge Date: Expected LOS: Initial Reviewer: [id number] Initial Review Date: 02/12/2018 Generated: 02/19/18 3:38 pm Comments DCP- Discharge Planning Updated by [id number]: Brock Chavez on 02/19/18 1:[address] Patient Name: CHRISTINE NGUYEN Encounter No: [id number] : 1975 Primary Insurance: MEDICARE A & B Anticipated DC Date: Planned Disposition: Mcfp Facility External Planned Provider: ANY ACCEPTING [facility] [facility], MEDICARE REHAB BED DCP follow-up note: CM RECEIVED CALL FROM [facility], THEY WILL NOT ACCEPT DUE TO FINANCIAL CONCERNS. CM SPOKE TO DR. DUMONT AND PROVIDED UPDATE. CM SPOKE TO PT IN ROOM WHO WAS UPSET STATING SHE PAID THEM THE MONEY THAT WAS OWED AND THE ONLY CARE HOME SHE OWES MONEY TO IS [facility] WHICH SHE OWES $21,000. CM DISCUSSED NURSING FACILITY OPTIONS IN [place], PT ASKED THAT REFERRALS BE SENT TO ALL LOCAL NURSING [facility] EXCEPT [facility] AND [facility]. CHOICE LETTER COMPLETED. CM FAXED REFERRALS TO [facility], [place], [place], [facility] AND [facility]. CM WAITING ADMISSION DETERMINATIONS FROM [facility], [place], [facility] AND [facility]. CM WAITING LEVEL 2 DONA SCREENING COMPLETION AND DETERMINATION. Brock Chavez CASE MANAGEMENT DCP- Discharge Planning Updated by [id number]: Brock Chavez on 02/17/18 2:[address] Patient Name: CHRISTINE NGUYEN Encounter No: [id number] : 1975 Primary Insurance: MEDICARE A & B Anticipated DC Date: Planned Disposition: Mcfp Facility External Planned Provider: [facility], MEDICARE REHAB BED DCP follow-up note: CM COMPLETED DONA THAT CM STARTED ON 02-15-18, DOCTOR AND PT SIGNATURES WERE OBTAINED. CM MET WITH PT IN ROOM TO DISCUSS DISCHARGE PLANNING AND NEEDS. PT REPORTS SHE IS NOT ABLE TO CARE FOR HERSELF AND HER PARENTS, WHOM SHE WAS LIVING WITH, ARE NOT ABLE TO EITHER. PT WOULD LIKE PLACMENT AT [facility]. PT HAS TALKED TO [facility] WHO TOLD HER THAT IT DEPENDS ON IF THE DOCTOR WILL TAKE HER BACK THERE OR NOT. PT REPORTS SHE HAS BEEN TO [facility], [facility] AND [facility] FOR REHAB AND HALFWAY CARE IN THE PAST. PT LEFT THE [facility] IN FEBRUARY OR MARCH OF THIS YEAR AND MOVED IN WITH HER PARENTS. PT'S FIRST CHOICE FOR REHAB AND HALFWAY CARE IS [facility], SECOND CHOICE IS THE [facility]. PT WILL NOT CONSIDER [facility] AGAIN. CHOICE COMPLETED AND SIGNED. IMPORTANT MESSAGE FROM MEDICARE PROVIDED AND DISCUSSED. PT REPORTS THE LAST DONA THAT WAS DONE THEY HAD TO DO A LEVEL 2 SCREENING. CM CALLED [facility], , LEFT MESSAGE ASKING FOR RETURN CALL. CM FAXED REFERRAL TO [facility] AT [phone]. CM FAXED COMPLETED DONA SCREENING AND SUPPORTING DOCUMENTS TO [facility] AT [phone]. CM WAITING ADMISSION DETERMINATION FROM [facility] AND DONA SCREENING COMPLETION. Brock Chavez, CASE MANAGEMENT Appended by Brock Chavez on 02/17/2018 9:57 COFFEE SHOP AIDE: CM RECEIVED CALL FROM [facility] [place], , WHO INSTRUCTED CM TO SEND THE REFERRAL AND THEIR DOCTOR AND DIRECTOR WILL LOOK AT IT TO MAKE ADMISSION DETERMINATION. REFERRAL PREVIOUSLY FAXED TODAY TO [facility] AT [phone]. CM WAITING ADMISSION DETERMINATION FROM [facility] AND DONA SCREENING COMPLETION. Brock Chavez, CASE MANAGEMENT Appended by Brock Chavez on 02/17/2018 15:44 COFFEE SHOP AIDE: CM RECEIVED DONA SCREENING RESPONSE, PT WILL REQUIRE LEVEL 2 SCREENING WHICH MAY TAKE UP TO 9 (NINE) BUSINESS DAYS TO COMPLETE. CM FAXED DONA DETERMINATION REQUIRING LEVEL 2 SCREEN TO [facility] AT [phone]. CM WAITING ADMISSION DETERMINATION FROM [facility] AND [facility] LEVEL 2 SCREENING COMPLETION WHICH CAN TAKE UP TO 9 (NINE) BUSINESS DAYS. Brock Chavez, CASE MANAGEMENT DCP- Discharge Planning Updated by [id number]: Misti Mccann on 02/12/18 5:[address] Patient Name: CHRISTINE NGUYEN Admission Status: ER Accout number: [id number] Admission Date: 02-11-2018 : 1975 Admission Diagnosis: Attending: DREW DUMONT Current LOS: 1 Anticipated DC Date: Planned Disposition: Mcfp Facility Primary Insurance: MEDICARE A & B Discharge Planning Comments: CM spoke with patient at bedside. Patient states she knows she can't return to her home. She is totally dependent of all her ADLs she is can feed herself but that is about all. APS has been notified of case. Patient is requesting to discharge to [facility]. CM will contact [facility]. CM will fax records to [facility] for possible placement when stable. CM will continue to follow and assist with discharge planning / needs. Tensioning Machine Operator: Misti Mccann DCPIA - Discharge Planning Initial Assessment Updated by [id number]: Misti Mccann on 02/12/18 6:12 pm * Is the patient Alert and Oriented? Yes * PCP Dr. bueno * Pharmacy [facility] * Preadmission Environment Home with Family * ADLs Total Dependent * Equipment Wheelchair * List name and contact numbers for known caregivers / representatives who currently or will assist patient after discharge: Meggan Carlson mother [phone] * Verbal permission to speak to the caregivers and representatives has been obtained from the patient. N/A * Community resources currently utilized None * Additional services required to return to the preadmission environment? Yes * Can the patient safely return to the preadmission environment? No * Has this patient been hospitalized within the prior 30 days at any hospital? No Coverage Notice Reviewer: [id number] Sukumra Chavez Notice Issued Date-Time: 02/17/2018 8:10 Notice Type: IM Discharge Notice Notice Delivered To: Patient Relationship to Patient: Soft Hat Binder Name: Delivery Method: HAND - Hand Delivered Lashonda Days: Prior Verbal Notification: Recipient Understood Notice: Yes Recipient Signature: Yes Med Rec Note Co-signed by Attending: Coverage Notice Comment: Reviewer: [id number] Sukumar Chavez Notice Issued Date-Time: 02/17/2018 8:10 Notice Type: Patient Choice Letter Notice Delivered To: Patient Relationship to Patient: Soft Hat Binder Name: Delivery Method: HAND - Hand Delivered Lashonda Days: Prior Verbal Notification: Recipient Understood Notice: Yes Recipient Signature: Yes Med Rec Note Co-signed by Attending: Coverage Notice Comment: 1- CANDI ROGERS / 2- PASCUAL MORA Reviewer: [id number] - Brock Chavez Notice Issued Date-Time: 02/19/2018 9:30 Notice Type: Patient Choice Letter Notice Delivered To: Patient Relationship to Patient: Soft Hat Binder Name: Delivery Method: HAND - Hand Delivered Lashonda Days: Prior Verbal Notification: Recipient Understood Notice: Yes Recipient Signature: Yes Med Rec Note Co-signed by Attending: Coverage Notice Comment: ANY [facility] EXCEPT: [facility] OR [facility]. Last DP export: 02/19/18 1:14 Patient Name: CHRISTINE NGUYEN Page [id number] at 1438 All edits/amendments must be made on the electronic document DICTATION DATE: 02/19/18 1438 MACHINE OPERATIONS SUPERVISOR: KAYODE 02/19/18 1438 RPT#: [id number] DC DATE: STATUS: ADM IN [facility] [address] [place] [address] END OF REPORT
--- NOTE | 2018-02-19 15:03 | NUR ---
CALLED AND SPOKE TO RU IN THE PHARMACY REQUESTING REFILL FOR THE NYSTOP, REQUESTING MORE THAN ONE BOTTLE
[2018-02-19 16:11] VITALS: BP 101/65
--- NOTE | 2018-02-19 16:14 | MORECARE ---
CASE MANAGEMENT DISCHARGE SUMMARY PATIENT: CHRISTINE NGUYEN UNIT: [id number] ADM DATE: 02/11/18 AGE: 42 : 73 SEX: F ROOM/BED: D.1620 AUTHOR: ARTIE,DOC PHYSICIAN: REFERRING PHYSICIAN: DREW DUMONT MD DATE OF SERVICE: 02/19/18 Discharge Plan Patient Name: CHRISTINE NGUYEN Facility: [facility]:[place] : 1975 Planned Disposition: Long Term Facility Anticipated Discharge Date: Discharge Date: Expected LOS: Initial Reviewer: [id number] Initial Review Date: 02/12/2018 Generated: 02/19/18 5:14 pm Comments DCP- Discharge Planning Updated by [id number]: Brock Chavez on 02/19/18 3:[address] Patient Name: CHRISTINE NGUYEN Encounter No: [id number] : 1975 Primary Insurance: MEDICARE A & B Anticipated DC Date: Planned Disposition: Long Term Facility External Planned Provider: ANY ACCEPTING [place] [facility], MEDICARE REHAB BED DCP follow-up note: CM RECEIVED CALL FROM [facility], THEY WILL NOT ACCEPT DUE TO FINANCIAL CONCERNS. CM SPOKE TO DR. DUMONT AND PROVIDED UPDATE. CM SPOKE TO PT IN ROOM WHO WAS UPSET STATING SHE PAID THEM THE MONEY THAT WAS OWED AND THE ONLY LONG-TERM SHE OWES MONEY TO IS [facility] WHICH SHE OWES $21,000. CM DISCUSSED NURSING FACILITY OPTIONS IN [place], PT ASKED THAT REFERRALS BE SENT TO ALL LOCAL NURSING [facility] EXCEPT [facility] AND [facility]. CHOICE LETTER COMPLETED. CM FAXED REFERRALS TO [facility], [facility], [place], [facility] AND [facility]. CM WAITING ADMISSION DETERMINATIONS FROM [facility], [facility] AND [facility]. CM WAITING LEVEL 2 DONA SCREENING COMPLETION AND DETERMINATION. Brock Chavez, CASE MANAGEMENT Appended by Brock Chavez on 02/19/2018 16:07 ECONOMIC ADVISER: CM RECEIVED CALL FROM PT WHO REPORTS THAT HER FATHER CALLED [facility] WHO INFORMED HIM THAT HER MEDICAID WAS INACTIVE. CM CALLED EDWIN OF [employer] [facility] [place] WHO CONFIRMED PT HAD CAN DOFFER CARE MEDICAID THAT ENDED. EDWIN INFORMED CM THAT THE LONG-TERM WILL NEED TO REAPPLY FOR SENIOR CARE CARE MEDICAID, SHE IS NOT ABLE TO DO THAT APPLICATION. PT NOTIFIED. CM RECEIVED CALL FROM [facility] WHO DECLINED PT. PT HAS BEEN DECLINED FOR SENIOR CARE CARE FROM [facility] AND [facility]. CM WAITING ADMISSION DETERMINATIONS FROM [facility], [facility], [facility] AND [facility]. CM WAITING LEVEL 2 DONA SCREENING COMPLETION AND DETERMINATION. Brock Chavez, CASE MANAGEMENT DCP- Discharge Planning Updated by [id number]: Brock Chavez on 02/17/18 2:[address] Patient Name: CHRISTINE NGUYEN Encounter No: [id number] : 1975 Primary Insurance: MEDICARE A & B Anticipated DC Date: Planned Disposition: Long Term Facility External Planned Provider: [facility], MEDICARE REHAB BED DCP follow-up note: CM COMPLETED DONA THAT CM STARTED ON 02-15-18, DOCTOR AND PT SIGNATURES WERE OBTAINED. CM MET WITH PT IN ROOM TO DISCUSS DISCHARGE PLANNING AND NEEDS. PT REPORTS SHE IS NOT ABLE TO CARE FOR HERSELF AND HER PARENTS, WHOM SHE WAS LIVING WITH, ARE NOT ABLE TO EITHER. PT WOULD LIKE PLACMENT AT [facility]. PT HAS TALKED TO [facility] WHO TOLD HER THAT IT DEPENDS ON IF THE DOCTOR WILL TAKE HER BACK THERE OR NOT. PT REPORTS SHE HAS BEEN TO [facility], [facility] AND [facility] FOR REHAB AND CAN DOFFER CARE IN THE PAST. PT LEFT THE [facility] IN FEBRUARY OR MARCH OF THIS YEAR AND MOVED IN WITH HER PARENTS. PT'S FIRST CHOICE FOR REHAB AND SENIOR CARE CARE IS [facility], SECOND CHOICE IS THE [facility]. PT WILL NOT CONSIDER [facility] AGAIN. CHOICE COMPLETED AND SIGNED. IMPORTANT MESSAGE FROM MEDICARE PROVIDED AND DISCUSSED. PT REPORTS THE LAST DONA THAT WAS DONE THEY HAD TO DO A LEVEL 2 SCREENING. CM CALLED [facility], , LEFT MESSAGE ASKING FOR RETURN CALL. CM FAXED REFERRAL TO [facility] AT [phone]. CM FAXED COMPLETED DONA SCREENING AND SUPPORTING DOCUMENTS TO [facility] AT [phone]. CM WAITING ADMISSION DETERMINATION FROM [facility] AND DONA SCREENING COMPLETION. Brock Chavez, CASE MANAGEMENT Appended by Brock Chavez on 02/17/2018 9:57 ECONOMIC ADVISER: CM RECEIVED CALL FROM [facility], , WHO INSTRUCTED CM TO SEND THE REFERRAL AND THEIR DOCTOR AND DIRECTOR WILL LOOK AT IT TO MAKE ADMISSION DETERMINATION. REFERRAL PREVIOUSLY FAXED TODAY TO [facility] AT [phone]. CM WAITING ADMISSION DETERMINATION FROM [facility] AND DONA SCREENING COMPLETION. Brock Chavez, CASE MANAGEMENT Appended by Brock Chavez on 02/17/2018 15:44 ECONOMIC ADVISER: CM RECEIVED DONA SCREENING RESPONSE, PT WILL REQUIRE LEVEL 2 SCREENING WHICH MAY TAKE UP TO 9 (NINE) BUSINESS DAYS TO COMPLETE. CM FAXED DONA DETERMINATION REQUIRING LEVEL 2 SCREEN TO [facility] AT [phone]. CM WAITING ADMISSION DETERMINATION FROM [facility] AND [facility]A LEVEL 2 SCREENING COMPLETION WHICH CAN TAKE UP TO 9 (NINE) BUSINESS DAYS. Brock Chavez CASE MANAGEMENT DCP- Discharge Planning Updated by [id number]: Misti Mccann on 02/12/18 5:[address] Patient Name: CHRISTINE NGUYEN Admission Status: ER Accout number: [id number] Admission Date: 02-11-2018 : 1975 Admission Diagnosis: Attending: DREW DUMONT Current LOS: 1 Anticipated DC Date: Planned Disposition: Long Term Facility Primary Insurance: MEDICARE A & B Discharge Planning Comments: CM spoke with patient at bedside. Patient states she knows she can't return to her home. She is totally dependent of all her ADLs she is can feed herself but that is about all. APS has been notified of case. Patient is requesting to discharge to [facility]. CM will contact [facility]. CM will fax records to [facility] for possible placement when stable. CM will continue to follow and assist with discharge planning / needs. Special Delivery Carrier: Misti Mccann DCPIA - Discharge Planning Initial Assessment Updated by [id number]: Misti Mccann on 02/12/18 6:12 pm * Is the patient Alert and Oriented? Yes * PCP Dr. bueno * Pharmacy [facility] * Preadmission Environment Home with Family * ADLs Total Dependent * Equipment Wheelchair * List name and contact numbers for known caregivers / representatives who currently or will assist patient after discharge: Meggan Carlson mother [phone] * Verbal permission to speak to the caregivers and representatives has been obtained from the patient. N/A * Community resources currently utilized None * Additional services required to return to the preadmission environment? Yes * Can the patient safely return to the preadmission environment? No * Has this patient been hospitalized within the prior 30 days at any hospital? No Coverage Notice Reviewer: [id number] Chavez Notice Issued Date-Time: 02/17/2018 8:10 Notice Type: IM Discharge Notice Notice Delivered To: Patient Relationship to Patient: Planner Internship Name: Delivery Method: HAND - Hand Delivered Lashonda Days: Prior Verbal Notification: Recipient Understood Notice: Yes Recipient Signature: Yes Med Rec Note Co-signed by Attending: Coverage Notice Comment: Reviewer: SAKINA Chavez Notice Issued Date-Time: 02/17/2018 8:10 Notice Type: Patient Choice Letter Notice Delivered To: Patient Relationship to Patient: Planner Internship Name: Delivery Method: HAND - Hand Delivered Lashonda Days: Prior Verbal Notification: Recipient Understood Notice: Yes Recipient Signature: Yes Med Rec Note Co-signed by Attending: Coverage Notice Comment: 1- [facility] / 2- [facility] Reviewer: [id number] Sukumar Chavez Notice Issued Date-Time: 02/19/2018 9:30 Notice Type: Patient Choice Letter Notice Delivered To: Patient Relationship to Patient: Planner Internship Name: Delivery Method: HAND - Hand Delivered Lashonda Days: Prior Verbal Notification: Recipient Understood Notice: Yes Recipient Signature: Yes Med Rec Note Co-signed by Attending: Coverage Notice Comment: ANY [facility]. Last DP export: 02/19/18 1:38 Patient Name: CHRISTINE NGUYEN Page [id number] at 1614 All edits/amendments must be made on the electronic document DICTATION DATE: 02/19/181613 CUTTER HEAD SHARPENER: KAYODE 02/19/181613 RPT#: [id number] DC DATE: STATUS: ADM IN [facility] [address] [place] [address] END OF REPORT
--- NOTE | 2018-02-19 16:59 | MORECARE ---
CASE MANAGEMENT DISCHARGE SUMMARY PATIENT: CHRISTINE NGUYEN UNIT: [id number] ADM DATE: 02/11/18 AGE: 42 : [birth year] SEX: F ROOM/BED: D.0510 AUTHOR: ARTIE,DOC PHYSICIAN: REFERRING PHYSICIAN: DREW DUMONT MD DATE OF SERVICE: 02/19/18 Discharge Plan Patient Name: CHRISTINE NGUYEN Facility: [facility]:[place] : 1975 Planned Disposition: Fpc Facility Anticipated Discharge Date: Discharge Date: Expected LOS: Initial Reviewer: [id number] Initial Review Date: 02/12/2018 Generated: 02/19/18 5:58 pm Comments DCP- Discharge Planning Updated by [id number]: Brock Chavez on 02/19/18 3:[address] Patient Name: CHRISTINE NGUYEN Encounter No: [id number] : 1975 Primary Insurance: MEDICARE A & B Anticipated DC Date: Planned Disposition: Fpc Facility External Planned Provider: ANY ACCEPTING [place] [facility], MEDICARE REHAB BED DCP follow-up note: CM RECEIVED CALL FROM MARIXA OF [facility], THEY WILL NOT ACCEPT DUE TO FINANCIAL CONCERNS. CM SPOKE TO DR. DUMONT AND PROVIDED UPDATE. CM SPOKE TO PT IN ROOM WHO WAS UPSET STATING SHE PAID THEM THE MONEY THAT WAS OWED AND THE ONLY ALF SHE OWES MONEY TO IS [facility] WHICH SHE OWES $21,000. CM DISCUSSED NURSING FACILITY OPTIONS IN [place], PT ASKED THAT REFERRALS BE SENT TO ALL LOCAL NURSING [facility] EXCEPT [facility] AND [facility]. CHOICE LETTER COMPLETED. CM FAXED REFERRALS TO [facility], [facility], [facility], [facility] AND [facility]. CM WAITING ADMISSION DETERMINATIONS FROM [facility], [facility] AND [facility]. CM WAITING LEVEL 2 DONA SCREENING COMPLETION AND DETERMINATION. Brock Chavez, CASE MANAGEMENT Appended by Brock Chavez on 02/19/2018 16:07 SURVEY PROJECT MANAGER: CM RECEIVED CALL FROM PT WHO REPORTS THAT HER FATHER CALLED [facility] WHO INFORMED HIM THAT HER MEDICAID WAS INACTIVE. CM CALLED EDWIN OF [employer] [facility] [place] WHO CONFIRMED PT HAD RADIOLOGICAL TECHNICIAN CARE MEDICAID THAT ENDED. EDWIN INFORMED CM THAT THE ALF WILL NEED TO REAPPLY FOR CARE HOME CARE MEDICAID, SHE IS NOT ABLE TO DO THAT APPLICATION. PT NOTIFIED. CM RECEIVED CALL FROM DOROTHEA [facility] WHO DECLINED PT. PT HAS BEEN DECLINED FOR CARE HOME CARE FROM [facility] AND [facility]. CM WAITING ADMISSION DETERMINATIONS FROM [facility], [facility], [facility] AND [facility]. CM WAITING LEVEL 2 DONA SCREENING COMPLETION AND DETERMINATION. Brock Chavez, CASE MANAGEMENT Appended by Brock Chavez on 02/19/2018 16:55 SURVEY PROJECT MANAGER: CM RECEIVED MESSAGE FROM AISHA [facility], PT HAS BEEN DECLINED. PT HAS BEEN DECLINED FOR CARE HOME CARE FROM [facility] AND [facility]. CM WAITING ADMISSION DETERMINATIONS FROM [facility], [facility] AND [facility]. CM WAITING LEVEL 2 DONA SCREENING COMPLETION AND DETERMINATION. Brock Chavez, CASE MANAGEMENT DCP- Discharge Planning Updated by [id number]: Brock Chavez on 02/17/18 2:[address] Patient Name: CHRISTINE NGUYEN Encounter No: [id number] : 1975 Primary Insurance: MEDICARE A & B Anticipated DC Date: Planned Disposition: Fpc Facility External Planned Provider: [facility] AND [facility], MEDICARE REHAB BED DCP follow-up note: CM COMPLETED DONA THAT CM STARTED ON 02-15-18, DOCTOR AND PT SIGNATURES WERE OBTAINED. CM MET WITH PT IN ROOM TO DISCUSS DISCHARGE PLANNING AND NEEDS. PT REPORTS SHE IS NOT ABLE TO CARE FOR HERSELF AND HER PARENTS, WHOM SHE WAS LIVING WITH, ARE NOT ABLE TO EITHER. PT WOULD LIKE PLACMENT AT [facility]. PT HAS TALKED TO MYLA OF [facility] WHO TOLD HER THAT IT DEPENDS ON IF THE DOCTOR WILL TAKE HER BACK THERE OR NOT. PT REPORTS SHE HAS BEEN TO [facility], [facility] AND [facility] FOR REHAB AND RADIOLOGICAL TECHNICIAN CARE IN THE PAST. PT LEFT THE [facility] IN FEBRUARY OR MARCH OF THIS YEAR AND MOVED IN WITH HER PARENTS. PT'S FIRST CHOICE FOR REHAB AND CARE HOME CARE IS [facility], SECOND CHOICE IS THE [facility]. PT WILL NOT CONSIDER [facility] AGAIN. CHOICE COMPLETED AND SIGNED. IMPORTANT MESSAGE FROM MEDICARE PROVIDED AND DISCUSSED. PT REPORTS THE LAST DONA THAT WAS DONE THEY HAD TO DO A LEVEL 2 SCREENING. CM CALLED MARIXA [facility], , LEFT MESSAGE ASKING FOR RETURN CALL. CM FAXED REFERRAL TO [facility] AT [phone]. CM FAXED COMPLETED DONA SCREENING AND SUPPORTING DOCUMENTS TO [employer] AT [phone]. CM WAITING ADMISSION DETERMINATION FROM [facility] AND DONA SCREENING COMPLETION. Brock Chavez, CASE MANAGEMENT Appended by Brock Chavez on 02/17/2018 9:57 SURVEY PROJECT MANAGER: CM RECEIVED CALL FROM MARIXA [facility], , WHO INSTRUCTED CM TO SEND THE REFERRAL AND THEIR DOCTOR AND DIRECTOR WILL LOOK AT IT TO MAKE ADMISSION DETERMINATION. REFERRAL PREVIOUSLY FAXED TODAY TO [facility] AT [phone]. CM WAITING ADMISSION DETERMINATION FROM [facility] AND [facility]A SCREENING COMPLETION. Brock Chavez, CASE MANAGEMENT Appended by Brock Chavez on 02/17/2018 15:44 SURVEY PROJECT MANAGER: CM RECEIVED DONA SCREENING RESPONSE, PT WILL REQUIRE LEVEL 2 SCREENING WHICH MAY TAKE UP TO 9 (NINE) BUSINESS DAYS TO COMPLETE. CM FAXED DONA DETERMINATION REQUIRING LEVEL 2 SCREEN TO [facility] AT [phone]. CM WAITING ADMISSION DETERMINATION FROM [facility] AND [facility] LEVEL 2 SCREENING COMPLETION WHICH CAN TAKE UP TO 9 (NINE) BUSINESS DAYS. Brock Chavez, CASE MANAGEMENT DCP- Discharge Planning Updated by [id number]: Misti Mccann on 02/12/18 5:[address] Patient Name: CHRISTINE NGUYEN Admission Status: ER Accout number: [id number] Admission Date: 02-11-2018 : 1975 Admission Diagnosis: Attending: DREW DUMONT Current LOS: 1 Anticipated DC Date: Planned Disposition: Fpc Facility Primary Insurance: MEDICARE A & B Discharge Planning Comments: CM spoke with patient at bedside. Patient states she knows she can't return to her home. She is totally dependent of all her ADLs she is can feed herself but that is about all. APS has been notified of case. Patient is requesting to discharge to [facility]. CM will contact [facility]. CM will fax records to [facility] for possible placement when stable. CM will continue to follow and assist with discharge planning / needs. Explosive Technician: Misti Mccann DCPIA - Discharge Planning Initial Assessment Updated by [id number]: Misti Mccann on 02/12/18 6:12 pm * Is the patient Alert and Oriented? Yes * PCP Dr. bueno * Pharmacy [place] or [facility] * Preadmission Environment Home with Family * ADLs Total Dependent * Equipment Wheelchair * List name and contact numbers for known caregivers / representatives who currently or will assist patient after discharge: Meggan lorenzana [phone] * Verbal permission to speak to the caregivers and representatives has been obtained from the patient. N/A * Community resources currently utilized None * Additional services required to return to the preadmission environment? Yes * Can the patient safely return to the preadmission environment? No * Has this patient been hospitalized within the prior 30 days at any hospital? No Coverage Notice Reviewer: SAKINA Chavez Notice Issued Date-Time: 02/17/2018 8:10 Notice Type: IM Discharge Notice Notice Delivered To: Patient Relationship to Patient: Smoked Meat Preparer Name: Delivery Method: HAND - Hand Delivered Lashonda Days: Prior Verbal Notification: Recipient Understood Notice: Yes Recipient Signature: Yes Med Rec Note Co-signed by Attending: Coverage Notice Comment: Reviewer: SAKINA Chavez Notice Issued Date-Time: 02/17/2018 8:10 Notice Type: Patient Choice Letter Notice Delivered To: Patient Relationship to Patient: Smoked Meat Preparer Name: Delivery Method: HAND - Hand Delivered Lashonda Days: Prior Verbal Notification: Recipient Understood Notice: Yes Recipient Signature: Yes Med Rec Note Co-signed by Attending: Coverage Notice Comment: 1- [facility] / 2- [facility] Reviewer: [id number] Chavez Notice Issued Date-Time: 02/19/2018 9:30 Notice Type: Patient Choice Letter Notice Delivered To: Patient Relationship to Patient: Smoked Meat Preparer Name: Delivery Method: HAND - Hand Delivered Lashonda Days: Prior Verbal Notification: Recipient Understood Notice: Yes Recipient Signature: Yes Med Rec Note Co-signed by Attending: Coverage Notice Comment: ANY [place] [facility]CEPT: [facility] OR [facility]. Last DP export: 02/19/18 3:14 Patient Name: CHRISTINE NGUYEN Page 64082 at 1651 All edits/amendments must be made on the electronic document DICTATION DATE: 02/19/181657 CONTINUITY READER: KAYODE 02/19/181657 RPT#: [id number] CA DATE: STATUS: ADM IN [facility] [address] [place] [address] END OF REPORT
--- NOTE | 2018-02-19 18:38 | NUR ---
PATIENT GIVEN A PARTIAL BED BATH AT THIS TIME, DEVONTE AREA CLEANED AND DRIED, NYSTOP APPLIED. PATIENT POSITONED ON HER RIGHT SIDE, SUPPORTED WITH PILLOWS
[2018-02-19 20:00] VITALS: BP 113/64
--- NOTE | 2018-02-19 20:53 | NUR ---
PT SITTING UP IN BED RESTING. PT C/O BEING HOT, TURNED AIR DOWN IN ROOM. VITALS STABLE. MEDS TAKEN WITHOUT DIFFICULTY. PT LIGHT ON AND STATED SHE HAD INCONTINENT EPISODE AND WASNT ABLE TO MAKE IT ONTO BEDPAN. PT CLEANED UP. BS 242, 8 UNITS OF HUMILIN GIVEN, 33 UNITS LANTUS GIVEN TO ABD. YEAST TO GROIN AND ABD FOLDS NOTED. NYSTATIN APPLIED. L SIDE FLACCID, HX OF CVA. FRANK IN PLACE. YELLOW CLEAR URINE NOTED. NO IV ACCESS AT THIS TIME. ROOM AIR. ALERT AND ORIENTED, CHAIR FAST. L FOOT DROP NOTED. NO FURTHER CONCERNS AT THIS TIME. BED LOWERED AND LOCKED. CL IN REACH. WILL CONTINUE TO MONITOR
--- NOTE | 2018-02-19 22:32 | NUR ---
PT RESTING WITH EYES CLOSED. RESP EVEN AND REGULAR. CALL LIGHT WITHIN REACH.
[2018-02-20 04:00] VITALS: BP 120/62
[2018-02-20 05:49] LABS: BASOPHILS 1.1 % (0-2); EOSINOPHILS 2.4 % (0-7); HEMATOCRIT 38.7 % (36.0-48.0); HEMOGLOBIN 12.3 g/dL (12-16); IMMATURE GRANULOCYTES 3.7 % (0-5); MCH 29.1 pg (26.0-34.0); MCHC 31.8 g/dL (31.0-37.0); MCV 91.7 fL (80.0-100.0); MEAN PLATELET VOLUME 10.3 fL (7.4-10.4); MONOCYTES 7.2 % (2-11); NEUTROPHILS 44.6 % (40-80); PLATELET COUNT 419 10x3/uL (130-400); RBC 4.22 10x6/uL (4.00-5.40); RDW 12.8 % (11.5-14.5); WBC 10.2 10x3/uL (4.8-10.8)
[2018-02-20 05:56] LABS: ALBUMIN 2.1 g/dL (3.4-5.0); ALKALINE PHOSPHATASE 98 U/L (46-116); ALT (SGPT) 24 U/L (10-68); BILIRUBIN - TOTAL 0.12 mg/dL (0.2-1.3); CALC OSMOLALITY 276 mosm/kg (275-300); CALCIUM 9.2 mg/dL (8.5-10.1); CARBON DIOXIDE 30.4 mmol/L (21.0-32.0); CHLORIDE - SERUM 100 mmol/L (98-107); CREATININE - SERUM 0.7 mg/dL (0.6-1.3); MAGNESIUM - SERUM 1.9 mg/dL (1.8-2.4); PHOSPHOROUS 4.3 mg/dL (2.5-4.9); POTASSIUM - SERUM 4.2 mmol/L (3.5-5.1); PROTEIN - SERUM 6.6 g/dL (6.4-8.2); SODIUM 135 mmol/L (136-145); UREA NITROGEN 15 mg/dL (7-18); eGFR NON AFRICAN AMERICAN > 90 mL/min (90-120)
[2018-02-20 05:58] LABS: GLUCOSE 204 mg/dL (74-106)
--- NOTE | 2018-02-20 09:18 | NUR ---
PT REQUEST MORE BREAKFAST. INSTRUCTED OF INCREASING BLOOD SUGAR. STATES IS AWARE BUT IS STILL HUNGRY.
--- NOTE | 2018-02-20 10:14 | NUR ---
ALERT AND ORIENTEDX 3. YEAST RASH NOTED TO DEVNOTE AREA ALONG WITH BUTTOCKS WITH NYSTANTIN POWDER APPLIED.FRANK CATH PATENT. LEFT HEMIPARESIS NOTED. FOOT DROP NOTED TO LLE.DENIES ANY APIN OR DISCOMFORT AT THIS TIME. eNCOURAGED TO USE CALL LIGHT FOR ASSIST.
[2018-02-20 10:19] VITALS: BP 114/62
[2018-02-20 17:31] VITALS: BP 122/86
--- NOTE | 2018-02-20 19:20 | NUR ---
RECEIVED REPORT, WILL ASSUME CARE OF PT, PT IS SLEEPING, BED IS LOW, SRX3, CALL LIGHT IN REACH, WILL CONTINUE PLAN OF CARE
[2018-02-20 21:10] VITALS: BP 89/48
--- NOTE | 2018-02-20 21:25 | NUR ---
[id number] HUMALIN-4 UNITS GIVEN
--- NOTE | 2018-02-20 22:34 | NUR ---
PT ASKING FOR RESTOIL, GAVE ORDER
[2018-02-21] VITALS (7 sets, daily range): BP systolic 80–131; BP diastolic 51–68
--- NOTE | 2018-02-21 02:43 | NUR ---
RESTING IN BED WITH NO DISTRESS. RESPS EVEN/NONLABORED. CALL LIGHT IN REACH. MONITOR AND CPOC.
--- NOTE | 2018-02-21 17:02 | NUR ---
ALERT AND ORIENTED X4. SITTING UP IN BED. PHYSICAL THERAPY ASSIST OOB TO CHAIR FOR LUNCH. BED BATH AND LINEN CHANGE COMPLETE. NYSTATIN POWDER APPLIED TO AFFECTED AREAS. DENIES SOB. CONTINUE PLAN OF CARE AND SAFETY PRECAUTIONS.
--- NOTE | 2018-02-21 19:31 | NUR ---
RECEIVED REPORT, WILL ASSUME CARE OF PT, PT IS SLEEPING, BED IS LOW, SRX2, CALL LIGHT IN REACH, WILL CONTINUE PLAN OF CARE
--- NOTE | 2018-02-21 20:30 | NUR ---
[id number] 8 UNIT OF HUMULIN, 35 UNITS OF LANTUS, ALSO ASKING FOR TRAMDOL AND RESTORIL, GAVE ORDER, WILL CONTINUE PLAN OF CARE
--- NOTE | 2018-02-22 02:06 | NUR ---
RESTING IN BED WITH NO DISTRESS. RESPS EVEN/NONLABORED. NO DISTRESS. MONITOR AND CPOC.
--- NOTE | 2018-02-22 02:12 | NUR ---
PHOTONIC LABORATORY TECHNICIAN IN ROOM ASSISTING WITH BEDPAN
[2018-02-22 03:45] VITALS: BP 95/63
--- NOTE | 2018-02-22 07:38 | NUR ---
PATIENT IS SITTING UP IN BED, SHE IS AWAKE AND ALERT. SHE DENIES ANY NEEDS AT THIS TIME.
[2018-02-22 08:13] VITALS: BP 113/57
--- NOTE | 2018-02-22 09:24 | MORECARE ---
CASE MANAGEMENT DISCHARGE SUMMARY PATIENT: CHRISTINE NGUYEN UNIT: [id number] ADM DATE: 02/11/18 AGE: 42 : [birth year] SEX: F ROOM/BED: D.8605 AUTHOR: ARTIEDOC PHYSICIAN: REFERRING PHYSICIAN: DREW DUMONT MD DATE OF SERVICE: 02/22/18 Discharge Plan Patient Name: CHRISTINE NGUYEN Facility: [facility]:[place] : 1975 Planned Disposition: Fdc Facility Anticipated Discharge Date: Discharge Date: Expected LOS: Initial Reviewer: [id number] Initial Review Date: 02/12/2018 Generated: 02/22/18 10:23 am Comments DCP- Discharge Planning Updated by [id number]: Brock Chavez on 02/22/18 8:[address] Patient Name: CHRISTINE NGUYEN Encounter No: [id number] : 1975 Primary Insurance: MEDICARE A & B Anticipated DC Date: Planned Disposition: Fdc Facility External Planned Provider: FIRST ACCEPTING FACILITY DCP follow-up note: CM RECEIVED CALL FROM CHETNA PT'S STEP FATHER WHO REPORTS HE CALLED [facility] AND THEY TOLD HIM THE REASON THEY CANNOT ACCEPT IS THAT PT'S NURSING HOME CARE MEDICAID WAS INACTIVE AND CM NEEDED TO FILE FOR NURSING HOME CARE MEDICAID. CM EXPLAINED THAT THERE ARE OTHER FACTORS USED IN MAKING THEIR DECISION AND THAT THE INTERMEDIATE, NOT CM, APPLIES FOR LOCATOR SPECIALIST CARE MEDICAID. CHETNA STATES HE AND PT WANT HER TO GO TO [facility]; CM EXPLAINED THAT THE FACILITY HAD SAID NO; CHETNA ASKED FOR CM TO CALL THEM BACK AND HE WILL DO THE SAME. CM CALLED MARIXA OF [facility], , LEFT DETAILED MESSAGE ASKING FOR RETURN CALL. CM RECEIVED CALL FROM CRISTAL OF [employer] [facility], SHE WILL VISIT WITH AND ASSESS PT FOR LEVEL 2 DONA SCREENING TODAY AFTER NOON. PT HAS BEEN DECLINED FOR NURSING HOME CARE FROM [facility], [place] AND [facility]. CM WAITING ADMISSION DETERMINATIONS FROM [facility] AND [facility]. CM WAITING LEVEL 2 DONA SCREENING COMPLETION AND DETERMINATION. Brock Chavez CASE MANAGEMENT DCP- Discharge Planning Updated by [id number]: Brock Chavez on 02/19/18 3:[address] Patient Name: CHRISTINE NGUYEN Encounter No: [id number] : 1975 Primary Insurance: MEDICARE A & B Anticipated DC Date: Planned Disposition: Fdc Facility External Planned Provider: ANY ACCEPTING [place] INTERMEDIATE, MEDICARE REHAB BED DCP follow-up note: CM RECEIVED CALL FROM MARIXA [facility], THEY WILL NOT ACCEPT DUE TO FINANCIAL CONCERNS. CM SPOKE TO DR. DUMONT AND PROVIDED UPDATE. CM SPOKE TO PT IN ROOM WHO WAS UPSET STATING SHE PAID THEM THE MONEY THAT WAS OWED AND THE ONLY INTERMEDIATE SHE OWES MONEY TO IS [facility] WHICH SHE OWES $21,000. CM DISCUSSED NURSING FACILITY OPTIONS IN [place], PT ASKED THAT REFERRALS BE SENT TO ALL LOCAL NURSING [facility] EXCEPT [facility] AND [facility]. CHOICE LETTER COMPLETED. CM FAXED REFERRALS TO [facility], [place], [place], [facility] AND [facility]. CM WAITING ADMISSION DETERMINATIONS FROM [facility], [place], [facility], [facility] AND [facility]. CM WAITING LEVEL 2 DONA SCREENING COMPLETION AND DETERMINATION. Brock Chavez, CASE MANAGEMENT Appended by Brock Chavez on 02/19/2018 16:07 ASSISTANT FITNESS MANAGER: CM RECEIVED CALL FROM PT WHO REPORTS THAT HER FATHER CALLED [facility] WHO INFORMED HIM THAT HER MEDICAID WAS INACTIVE. CM CALLED EDWIN OF [employer] AT [place] WHO CONFIRMED PT HAD NURSING HOME CARE MEDICAID THAT ENDED. EDWIN INFORMED CM THAT THE INTERMEDIATE WILL NEED TO REAPPLY FOR NURSING HOME CARE MEDICAID, SHE IS NOT ABLE TO DO THAT APPLICATION. PT NOTIFIED. CM RECEIVED CALL FROM DOROTHEA MERGED WITH [facility] WHO DECLINED PT. PT HAS BEEN DECLINED FOR LOCATOR SPECIALIST CARE FROM [facility]. CM WAITING ADMISSION DETERMINATIONS FROM [facility], [facility] AND [facility]. CM WAITING LEVEL 2 DONA SCREENING COMPLETION AND DETERMINATION. Brock Chavez, CASE MANAGEMENT Appended by Brock Chavez on 02/19/2018 16:55 ASSISTANT FITNESS MANAGER: CM RECEIVED MESSAGE FROM AISHA [facility], PT HAS BEEN DECLINED. PT HAS BEEN DECLINED FOR NURSING HOME CARE FROM [facility] AND [facility]. CM WAITING ADMISSION DETERMINATIONS FROM [facility], [facility] AND [facility]. CM WAITING LEVEL 2 DONA SCREENING COMPLETION AND DETERMINATION. Brock Chavez CASE MANAGEMENT DCP- Discharge Planning Updated by [id number]: Brock Chavez on 02/17/18 2:[address] Patient Name: CHRISTINE NGUYEN Encounter No: [id number] : 1975 Primary Insurance: MEDICARE A & B Anticipated DC Date: Planned Disposition: Fdc Facility External Planned Provider: [facility], MEDICARE REHAB BED DCP follow-up note: CM COMPLETED DONA THAT CM STARTED ON 02-15-18, DOCTOR AND PT SIGNATURES WERE OBTAINED. CM MET WITH PT IN ROOM TO DISCUSS DISCHARGE PLANNING AND NEEDS. PT REPORTS SHE IS NOT ABLE TO CARE FOR HERSELF AND HER PARENTS, WHOM SHE WAS LIVING WITH, ARE NOT ABLE TO EITHER. PT WOULD LIKE PLACMENT AT [facility]. PT HAS TALKED TO MYLA [facility] WHO TOLD HER THAT IT DEPENDS ON IF THE DOCTOR WILL TAKE HER BACK THERE OR NOT. PT REPORTS SHE HAS BEEN TO [facility], [facility] AND [facility] FOR REHAB AND NURSING HOME CARE IN THE PAST. PT LEFT THE [facility] IN FEBRUARY OR MARCH OF THIS YEAR AND MOVED IN WITH HER PARENTS. PT'S FIRST CHOICE FOR REHAB AND LOCATOR SPECIALIST CARE IS [facility], SECOND CHOICE IS THE [facility]. PT WILL NOT CONSIDER [facility] AGAIN. CHOICE COMPLETED AND SIGNED. IMPORTANT MESSAGE FROM MED[employer]ARE PROVIDED AND DISCUSSED. PT REPORTS THE LAST DONA THAT WAS DONE THEY HAD TO DO A LEVEL 2 SCREENING. CM CALLED [facility], , LEFT MESSAGE ASKING FOR RETURN CALL. CM FAXED REFERRAL TO [facility] AT [phone]. CM FAXED COMPLETED DONA SCREENING AND SUPPORTING DOCUMENTS TO [facility] AT [phone]. CM WAITING ADMISSION DETERMINATION FROM [facility] AND DONA SCREENING COMPLETION. Brock Chavez CASE MANAGEMENT Appended by Brock Chavez on 02/17/2018 9:57 ASSISTANT FITNESS MANAGER: CM RECEIVED CALL FROM MARIXA [facility], , WHO INSTRUCTED CM TO SEND THE REFERRAL AND THEIR DOCTOR AND DIRECTOR WILL LOOK AT IT TO MAKE ADMISSION DETERMINATION. REFERRAL PREVIOUSLY FAXED TODAY TO [facility] AT [phone]. CM WAITING ADMISSION DETERMINATION FROM [facility] AND DONA SCREENING COMPLETION. Brock Kathy, CASE MANAGEMENT Appended by Brock Chavez on 02/17/2018 15:44 ASSISTANT FITNESS MANAGER: CM RECEIVED DONA SCREENING RESPONSE, PT WILL REQUIRE LEVEL 2 SCREENING WHICH MAY TAKE UP TO 9 (NINE) BUSINESS DAYS TO COMPLETE. CM FAXED DONA DETERMINATION REQUIRING LEVEL [address] [facility] AT [phone]. CM WAITING ADMISSION DETERMINATION FROM [facility] AND DONA LEVEL 2 SCREENING COMPLETION WHICH CAN TAKE UP TO 9 (NINE) BUSINESS DAYS. Brock Chavez, CASE MANAGEMENT DCP- Discharge Planning Updated by [id number]: Misti Mccann on 02/12/18 5:[address] Patient Name: CHRISTINE NGUYEN Admission Status: ER Accout number: [id number] Admission Date: 02-11-2018 : 1975 Admission Diagnosis: Attending: DREW DUMONT Current LOS: 1 Anticipated DC Date: Planned Disposition: Fdc Facility Primary Insurance: MEDICARE A & B Discharge Planning Comments: CM spoke with patient at bedside. Patient states she knows she can't return to her home. She is totally dependent of all her ADLs she is can feed herself but that is about all. APS has been notified of case. Patient is requesting to discharge to [facility]. CM will contact [facility]. CM will fax records to [facility] for possible placement when stable. CM will continue to follow and assist with discharge planning / needs. Soaker Hides: Misti Mccann DCPIA - Discharge Planning Initial Assessment Updated by [id number]: Misti Mccann on 02/12/18 6:12 pm * Is the patient Alert and Oriented? Yes * PCP Dr. bueno * Pharmacy [place] or [facility] * Preadmission Environment Home with Family * ADLs Total Dependent * Equipment Wheelchair * List name and contact numbers for known caregivers / representatives who currently or will assist patient after discharge: Meggan Carlson mother [phone] * Verbal permission to speak to the caregivers and representatives has been obtained from the patient. N/A * Community resources currently utilized None * Additional services required to return to the preadmission environment? Yes * Can the patient safely return to the preadmission environment? No * Has this patient been hospitalized within the prior 30 days at any hospital? No Coverage Notice Reviewer: [id number] - Brock Chavez Notice Issued Date-Time: 02/17/2018 8:10 Notice Type: IM Discharge Notice Notice Delivered To: Patient Relationship to Patient: Stone Banker Name: Delivery Method: HAND - Hand Delivered Lashonda Days: Prior Verbal Notification: Recipient Understood Notice: Yes Recipient Signature: Yes Med Rec Note Co-signed by Attending: Coverage Notice Comment: Reviewer: SAKINA Chavez Notice Issued Date-Time: 02/17/2018 8:10 Notice Type: Patient Choice Letter Notice Delivered To: Patient Relationship to Patient: Stone Banker Name: Delivery Method: HAND - Hand Delivered Lashonda Days: Prior Verbal Notification: Recipient Understood Notice: Yes Recipient Signature: Yes Med Rec Note Co-signed by Attending: Coverage Notice Comment: 1- [facility] / 2- [facility] Reviewer: [id number] Sukumar Chavez Notice Issued Date-Time: 02/19/2018 9:30 Notice Type: Patient Choice Letter Notice Delivered To: Patient Relationship to Patient: Stone Banker Name: Delivery Method: HAND - Hand Delivered Lashonda Days: Prior Verbal Notification: Recipient Understood Notice: Yes Recipient Signature: Yes Med Rec Note Co-signed by Attending: Coverage Notice Comment: ANY [place] NUSING HOME EXCEPT: [facility] OR [facility]. Last DP export: 02/19/18 3:59 Patient Name: CHRISTINE NGUYEN Page [id number] at 0924 All edits/amendments must be made on the electronic document DICTATION DATE: 02/22/18922 QUANTITATIVE ANALYST DEVELOPER: KAYODE 02/22/18922 RPT#: [id number] DC DATE: STATUS: ADM IN [facility] [address] [place] [address] END OF REPORT
--- NOTE | 2018-02-22 09:46 | NUR ---
RESTS IN BED WITH EYES. CALL LIGHT IN REACH. WILL MONITOR NEEDS.
--- NOTE | 2018-02-22 10:28 | NUR ---
NYSTOP POWDER IS LATE BECAUSE THERE IS NOT ANY IN THE [place]. CALLED PHARMACY AND THEY SAID THEY WOULD BRING IT UP SOON POSSIBLE. CALLED THE PHARMACY AT 0830.
--- NOTE | 2018-02-22 11:10 | NUR ---
PATIENT B/P IS 93/59. SHE SAYS SHE WANTS MORE FOR PAIN, HOWEVER I AM NOT GOING TO GIVE ANYTHING RIGHT NOW WHEN HER B/P IS THAT LOW.
[2018-02-22 11:23] VITALS: BP 93/59
--- NOTE | 2018-02-22 15:15 | MORECARE ---
CASE MANAGEMENT DISCHARGE SUMMARY PATIENT: CHRISTINE NGUYEN UNIT: [id number] ADM DATE: 02/11/18 AGE: 42 : [birth year] SEX: F ROOM/BED: D.4598 AUTHOR: ARTIEDOC PHYSICIAN: REFERRING PHYSICIAN: DREW DUMONT MD DATE OF SERVICE: 02/22/18 Discharge Plan Patient Name: CHRISTINE NGUYEN Facility: [facility]:[place] : 1975 Planned Disposition: Residential Facility Anticipated Discharge Date: Discharge Date: Expected LOS: Initial Reviewer: [id number] Initial Review Date: 02/12/2018 Generated: 02/22/18 4:15 pm Comments DCP- Discharge Planning Updated by [id number]: Brock Chavez on 02/22/18 8:[address] Patient Name: CHRISTINE NGUYEN Encounter No: [id number] : 1975 Primary Insurance: MEDICARE A & B Anticipated DC Date: Planned Disposition: Residential Facility External Planned Provider: FIRST ACCEPTING FACILITY DCP follow-up note: CM RECEIVED CALL FROM CHETNA PT'S STEP FATHER WHO REPORTS HE CALLED [facility] AND THEY TOLD HIM THE REASON THEY CANNOT ACCEPT IS THAT PT'S OFFICE CLIN ASST CARE MEDICAID WAS INACTIVE AND CM NEEDED TO FILE FOR OFFICE CLIN ASST CARE MEDICAID. CM EXPLAINED THAT THERE ARE OTHER FACTORS USED IN MAKING THEIR DECISION AND THAT THE GROUP HOME, NOT CM, APPLIES FOR OFFICE CLIN ASST CARE MEDICAID. CHETNA STATES HE AND PT WANT HER TO GO TO [facility]; CM EXPLAINED THAT THE FACILITY HAD SAID NO; CHETNA ASKED FOR CM TO CALL THEM BACK AND HE WILL DO THE SAME. CM CALLED MARIXA OF [facility], , LEFT DETAILED MESSAGE ASKING FOR RETURN CALL. CM RECEIVED CALL FROM CRISTAL OF [facility], SHE WILL VISIT WITH AND ASSESS PT FOR LEVEL 2 DONA SCREENING TODAY AFTER NOON. PT HAS BEEN DECLINED FOR OFFICE CLIN ASST CARE FROM [facility], [place] AND [facility]. CM WAITING ADMISSION DETERMINATIONS FROM [facility] AND [facility]. CM WAITING LEVEL 2 DONA SCREENING COMPLETION AND DETERMINATION. Brock Chavez CASE MANAGEMENT DCP- Discharge Planning Updated by [id number]: Brock Chavez on 02/19/18 3:[address] Patient Name: CHRISTINE NGUYEN Encounter No: [id number] : 1975 Primary Insurance: MEDICARE A & B Anticipated DC Date: Planned Disposition: Residential Facility External Planned Provider: ANY ACCEPTING [place] [facility], MEDICARE REHAB BED DCP follow-up note: CM RECEIVED CALL FROM [facility]IXA [facility], THEY WILL NOT ACCEPT DUE TO FINANCIAL CONCERNS. CM SPOKE TO DR. DUMONT AND PROVIDED UPDATE. CM SPOKE TO PT IN ROOM WHO WAS UPSET STATING SHE PAID THEM THE MONEY THAT WAS OWED AND THE ONLY GROUP HOME SHE OWES MONEY TO IS [facility] WHICH SHE OWES $21,000. CM DISCUSSED NURSING FACILITY OPTIONS IN [place], PT ASKED THAT REFERRALS BE SENT TO ALL LOCAL NURSING [facility] EXCEPT [facility] AND [facility]. CHOICE LETTER COMPLETED. CM FAXED REFERRALS TO [facility], [place], [facility], [facility] AND [facility]. CM WAITING ADMISSION DETERMINATIONS FROM [facility], [facility], [facility], [facility] AND [facility]. CM WAITING LEVEL 2 DONA SCREENING COMPLETION AND DETERMINATION. Brock Chavez, CASE MANAGEMENT Appended by Brokc Chavez on 02/19/2018 16:07 HEALTH SERVICE COORDINATOR: CM RECEIVED CALL FROM PT WHO REPORTS THAT HER FATHER CALLED [facility] WHO INFORMED HIM THAT HER MEDICAID WAS INACTIVE. CM CALLED EDWIN OF [facility] [place] WHO CONFIRMED PT HAD [place] [facility] MEDICAID THAT ENDED. EDWIN INFORMED CM THAT THE GROUP HOME WILL NEED TO REAPPLY FOR OFFICE CLIN ASST CARE MEDICAID, SHE IS NOT ABLE TO DO THAT APPLICATION. PT NOTIFIED. CM RECEIVED CALL FROM [facility] WHO DECLINED PT. PT HAS BEEN DECLINED FOR OFFICE CLIN ASST CARE FROM [facility]. CM WAITING ADMISSION DETERMINATIONS FROM [facility], [facility] AND [facility]. CM WAITING LEVEL 2 DONA SCREENING COMPLETION AND DETERMINATION. Brock Chavez, CASE MANAGEMENT Appended by Brock Chavez on 02/19/2018 16:55 HEALTH SERVICE COORDINATOR: CM RECEIVED MESSAGE FROM [facility], PT HAS BEEN DECLINED. PT HAS BEEN DECLINED FOR OFFICE CLIN ASST CARE FROM [facility] AND [facility]. CM WAITING ADMISSION DETERMINATIONS FROM [facility], [facility] AND [facility]. CM WAITING LEVEL 2 DONA SCREENING COMPLETION AND DETERMINATION. Brock Chavez CASE MANAGEMENT DCP- Discharge Planning Updated by [id number]: Brock Chavez on 02/17/18 2:[address] Patient Name: CHRISTINE NGUYEN Encounter No: [id number] : 1975 Primary Insurance: MEDICARE A & B Anticipated DC Date: Planned Disposition: Residential Facility External Planned Provider: [facility], MEDICARE REHAB BED DCP follow-up note: CM COMPLETED DONA THAT CM STARTED ON 02-15-18, DOCTOR AND PT SIGNATURES WERE OBTAINED. CM MET WITH PT IN ROOM TO DISCUSS DISCHARGE PLANNING AND NEEDS. PT REPORTS SHE IS NOT ABLE TO CARE FOR HERSELF AND HER PARENTS, WHOM SHE WAS LIVING WITH, ARE NOT ABLE TO EITHER. [facility]. PT HAS TALKED TO MYLA [facility] WHO TOLD HER THAT IT DEPENDS ON IF THE DOCTOR WILL TAKE HER BACK THERE OR NOT. PT REPORTS SHE HAS BEEN TO [facility], [facility] AND [facility] FOR REHAB AND OFFICE CLIN ASST CARE IN THE PAST. PT LEFT THE [facility] IN FEBRUARY OR MARCH OF THIS YEAR AND MOVED IN WITH HER PARENTS. PT'S FIRST CHOICE FOR REHAB AND OFFICE CLIN ASST CARE [facility], SECOND CHOICE IS THE [facility]. PT WILL NOT CONSIDER [facility] AGAIN. CHOICE COMPLETED AND SIGNED. IMPORTANT MESSAGE FROM MEDICARE PROVIDED AND DISCUSSED. PT REPORTS THE LAST DONA THAT WAS DONE THEY HAD TO DO A LEVEL 2 SCREENING. CM CALLED [facility], , LEFT MESSAGE ASKING FOR RETURN CALL. CM FAXED REFERRAL TO [facility] AT [phone]. CM FAXED COMPLETED DONA SCREENING AND SUPPORTING DOCUMENTS TO [facility] AT [phone]. CM WAITING ADMISSION DETERMINATION FROM [facility] AND DONA SCREENING COMPLETION. Brock Chavez CASE MANAGEMENT Appended by Brock Chavez on 02/17/2018 9:57 HEALTH SERVICE COORDINATOR: CM RECEIVED CALL FROM [facility], , WHO INSTRUCTED CM TO SEND THE REFERRAL AND THEIR DOCTOR AND DIRECTOR WILL LOOK AT IT TO MAKE ADMISSION DETERMINATION. REFERRAL PREVIOUSLY FAXED TODAY TO [facility] AT [phone]. CM WAITING ADMISSION DETERMINATION FROM [facility] AND DONA SCREENING COMPLETION. Brock Kathy, CASE MANAGEMENT Appended by Brock Chavez on 02/17/2018 15:44 HEALTH SERVICE COORDINATOR: CM RECEIVED DONA SCREENING RESPONSE, PT WILL REQUIRE LEVEL 2 SCREENING WHICH MAY TAKE UP TO 9 (NINE) BUSINESS DAYS TO COMPLETE. CM FAXED DONA DETERMINATION REQUIRING LEVEL 2 SCREEN TO [facility] AT [phone]. CM WAITING ADMISSION DETERMINATION FROM [facility] AND DONA LEVEL 2 SCREENING COMPLETION WHICH CAN TAKE UP TO 9 (NINE) BUSINESS DAYS. Brock Chavez, CASE MANAGEMENT DCP- Discharge Planning Updated by [id number]: Misti Mccann on 02/12/18 5:[address] Patient Name: CHRISTINE NGUYEN Admission Status: ER Accout number: [id number] Admission Date: 02-11-2018 : 1975 Admission Diagnosis: Attending: DREW DUMONT Current LOS: 1 Anticipated DC Date: Planned Disposition: Residential Facility Primary Insurance: MEDICARE A & B Discharge Planning Comments: CM spoke with patient at bedside. Patient states she knows she can't return to her home. She is totally dependent of all her ADLs she is can feed herself but that is about all. APS has been notified of case. Patient is requesting to discharge to [facility]. CM will contact [facility]. CM will fax records to [facility] for possible placement when stable. CM will continue to follow and assist with discharge planning / needs. Franchise Sales Manager: Misti Mccann DCPIA - Discharge Planning Initial Assessment Updated by [id number]: Misti Mccann on 02/12/18 6:12 pm * Is the patient Alert and Oriented? Yes * PCP Dr. bueno * Pharmacy [facility] or [facility] * Preadmission Environment Home with Family * ADLs Total Dependent * Equipment Wheelchair * List name and contact numbers for known caregivers / representatives who currently or will assist patient after discharge: Meggan Carlson mother [phone] * Verbal permission to speak to the caregivers and representatives has been obtained from the patient. N/A * Community resources currently utilized None * Additional services required to return to the preadmission environment? Yes * Can the patient safely return to the preadmission environment? No * Has this patient been hospitalized within the prior 30 days at any hospital? No Coverage Notice Reviewer: [id number] - Brock Chavez Notice Issued Date-Time: 02/17/2018 8:10 Notice Type: IM Discharge Notice Notice Delivered To: Patient Relationship to Patient: Railroad Dispatcher Name: Delivery Method: HAND - Hand Delivered Lashonda Days: Prior Verbal Notification: Recipient Understood Notice: Yes Recipient Signature: Yes Med Rec Note Co-signed by Attending: Coverage Notice Comment: Reviewer: SAKINA Chavez Notice Issued Date-Time: 02/17/2018 8:10 Notice Type: Patient Choice Letter Notice Delivered To: Patient Relationship to Patient: Railroad Dispatcher Name: Delivery Method: HAND - Hand Delivered Lashonda Days: Prior Verbal Notification: Recipient Understood Notice: Yes Recipient Signature: Yes Med Rec Note Co-signed by Attending: Coverage Notice Comment: 1- [facility] / 2- PASCUAL MORA Reviewer: [id number] Sukumar Chavez Notice Issued Date-Time: 02/19/2018 9:30 Notice Type: Patient Choice Letter Notice Delivered To: Patient Relationship to Patient: Railroad Dispatcher Name: Delivery Method: HAND - Hand Delivered Lashonda Days: Prior Verbal Notification: Recipient Understood Notice: Yes Recipient Signature: Yes Med Rec Note Co-signed by Attending: Coverage Notice Comment: ANY [place] NUSING HOME EXCEPT: [facility] OR [facility]. Last DP export: 02/22/18 8:24 Patient Name: CHRISTINE NGUYEN Page 43760 at 1515 All edits/amendments must be made on the electronic document DICTATION DATE: 02/22/181513 EARTH SCIENCE TECHNICIAN: KAYODE 02/22/181513 RPT#: [id number] DC DATE: STATUS: ADM IN [facility] [address] [place] [address] END OF REPORT
--- NOTE | 2018-02-22 15:25 | MORECARE ---
CASE MANAGEMENT DISCHARGE SUMMARY PATIENT: CHRISTINE NGUYEN UNIT: [id number] ADM DATE: 02/11/18 AGE: 42 : [birth year] SEX: F ROOM/BED: D.7957 AUTHOR: ARTIE,DOC PHYSICIAN: REFERRING PHYSICIAN: DREW DUMONT MD DATE OF SERVICE: 02/22/18 Discharge Plan Patient Name: CHRISTINE NGUYEN Facility: [facility]:[place] : 1975 Planned Disposition: Fdc Facility Anticipated Discharge Date: Discharge Date: Expected LOS: Initial Reviewer: [id number] Initial Review Date: 02/12/2018 Generated: 02/22/18 4:25 pm Comments DCP- Discharge Planning Updated by [id number]: Brock Chavez on 02/22/18 2:[address] Patient Name: CHRISTINE NGUYEN Encounter No: [id number] : 1975 Primary Insurance: MEDICARE A & B Anticipated DC Date: Planned Disposition: Fdc Facility External Planned Provider: FIRST ACCEPTING FACILITY DCP follow-up note: CM RECEIVED CALL FROM CHETNA PT'S STEP FATHER WHO REPORTS HE CALLED [facility] AND THEY TOLD HIM THE REASON THEY CANNOT ACCEPT IS THAT PT'S RURAL HE[facility] CONSULTANT C[facility] MEDICAID WAS INACTIVE AND CM NEEDED TO FILE FOR RURAL HEALTH CONS[facility]ANT CARE MEDICAID. CM EXPLAINED THAT THERE ARE OTHER FACTORS USED IN MAKING THEIR DECISION AND THAT THE LONG-TERM, NOT CM, APPLIES FOR RURAL HEALTH CONSULTANT CARE MEDICAID. CHETNA STATES HE AND PT WANT HER TO GO TO [facility]; CM EXPLAINED THAT THE FACILITY HAD SAID NO; CHETNA ASKED FOR CM TO CALL THEM BACK AND HE WILL DO THE SAME. CM CALLED MARIXA OF [facility], , LEFT DETAILED MESSAGE ASKING FOR RETURN CALL. CM RECEIVED CALL FROM CRISTAL OF [employer] [facility], SHE WILL VISIT WITH AND ASSESS PT FOR LEVEL 2 DONA SCREENING TODAY AFTER NOON. PT HAS BEEN DECLINED FOR R[facility] HE[facility]ANT CARE FROM [facility], [facility] AND [facility]. CM WAITING ADMISSION DETERMINATIONS FROM [facility] AND [facility]. CM WAITING LEVEL 2 DONA SCREENING COMPLETION AND DETERMINATION. Brock Chavez, CASE MANAGEMENT Appended by Brock Chavez on 02/22/2018 15:16 SENIOR INTERNATIONAL TAX MANAGER: CM SPOKE TO DOROTHEA OF [facility], THEY WILL NOT ACCEPT PT. CM SPOKE TO [facility], THEY CANNOT MEET PT'S NEEDS. CM SPOKE TO NATHALIE OF [facility], THEY CANNOT TAKE PT. CM CALLED AND SPOKE TO [facility] WHO INFORMED CM THEY ARE STILL CONSIDERING PT FOR PLACEMENT AND WILL VISIT WITH PT ON 02-24-18. PT NOTIFIED OF ABOVE; PT CONTINUES TO DECLINE REFERRAL TO [facility] AND UNDERSTANDS IF [place] DECLINES, CM WILL HAVE TO SEND REFERRAL OUTSIDE OF [place] FOR PLACEMENT CONSIDERATION. PT HAS BEEN DECLINED FOR MCC CARE AT [facility], [facility], [facility], [facility], [facility], [facility] AND [facility]. CM WAITING ADMISSION DETERMINATION FROM [facility]. CM WAITING LEVEL 2 DONA SCREENING COMPLETION AND DETERMINATION. Brock Chavez, CASE MANAGEMENT DCP- Discharge Planning Updated by [id number]: Brock Chavez on 02/19/18 3:[address] Patient Name: CHRISTINE NGUYEN Encounter No: [id number] : 1975 Primary Insurance: MEDICARE A & B Anticipated DC Date: Planned Disposition: Fdc Facility External Planned Provider: ANY ACCEPTING [place] [facility], MEDICARE REHAB BED DCP follow-up note: CM RECEIVED CALL FROM MARIXA OF [facility], THEY WILL NOT ACCEPT DUE TO FINANCIAL CONCERNS. CM SPOKE TO DR. DUMONT AND PROVIDED UPDATE. CM SPOKE TO PT IN ROOM WHO WAS UPSET STATING SHE PAID THEM THE MONEY THAT WAS OWED AND THE ONLY LONG-TERM SHE OWES MONEY TO IS [facility] WHICH SHE OWES $21,000. CM DISCUSSED NURSING FACILITY OPTIONS IN [place], PT ASKED THAT REFERRALS BE SENT TO ALL LOCAL NURSING HOMES EXCEPT [facility] AND [facility]. CHOICE LETTER COMPLETED. CM FAXED REFERRALS TO [facility], [facility], [facility], [facility] AND [facility]. CM WAITING ADMISSION DETERMINATIONS FROM [facility], [facility], [facility], [facility] AND [facility]. CM WAITING LEVEL 2 DONA SCREENING COMPLETION AND DETERMINATION. Brock Chavez, CASE MANAGEMENT Appended by Brock Chavez on 02/19/2018 16:07 SENIOR INTERNATIONAL TAX MANAGER: CM RECEIVED CALL FROM PT WHO REPORTS THAT HER FATHER CALLED [facility] WHO INFORMED HIM THAT HER MEDICAID WAS INACTIVE. CM CALLED EDWIN OF [facility] AT [place] WHO CONFIRMED PT HAD MCC CARE MEDICAID THAT ENDED. EDWIN INFORMED CM THAT THE LONG-TERM WILL NEED TO REAPPLY FOR RURAL HEALTH CONSULTANT CARE MEDICAID, SHE IS NOT ABLE TO DO THAT APPLICATION. PT NOTIFIED. CM RECEIVED CALL FROM [facility] WHO DECLINED PT. PT HAS BEEN DECLINED FOR MCC CARE FROM [facility] AND [facility]. CM WAITING ADMISSION DETERMINATIONS FROM [facility], [facility] AND [facility]. CM WAITING LEVEL 2 DONA SCREENING COMPLETION AND DETERMINATION. Brock Chavez, CASE MANAGEMENT Appended by Brock Chavez on 02/19/2018 16:55 SENIOR INTERNATIONAL TAX MANAGER: CM RECEIVED MESSAGE FROM [facility], PT HAS BEEN DECLINED. PT HAS BEEN DECLINED FOR RURAL HEALTH CONSULTANT CARE FROM [facility] AND [facility]. CM WAITING ADMISSION DETERMINATIONS FROM [facility], [facility] AND [facility]. CM WAITING LEVEL 2 DONA SCREENING COMPLETION AND DETERMINATION. Brock Chavez, CASE MANAGEMENT DCP- Discharge Planning Updated by [id number]: Brock Chavez on 02/17/18 2:[address] Patient Name: CHRISTINE NGUYEN Encounter No: [id number] : 1975 Primary Insurance: MEDICARE A & B Anticipated DC Date: Planned Disposition: Fdc Facility External Planned Provider: [facility], MEDICARE REHAB BED DCP follow-up note: CM COMPLETED DONA THAT CM STARTED ON 02-15-18, DOCTOR AND PT SIGNATURES WERE OBTAINED. CM MET WITH PT IN ROOM TO DISCUSS DISCHARGE PLANNING AND NEEDS. PT REPORTS SHE IS NOT ABLE TO CARE FOR HERSELF AND HER PARENTS, WHOM SHE WAS LIVING WITH, ARE NOT ABLE TO EITHER. PT WOULD LIKE PLACMENT AT [facility]. PT HAS TALKED TO MYLA OF [facility] WHO TOLD HER THAT IT DEPENDS ON IF THE DOCTOR WILL TAKE HER BACK THERE OR NOT. PT REPORTS SHE HAS BEEN TO [facility], [facility] AND [facility] FOR REHAB AND R[facility] HE[facility] CONS[facility]ANT CARE IN THE PAST. PT LEFT [facility] IN FEBRUARY OR MARCH OF THIS YEAR AND MOVED IN WITH HER PARENTS. PT'S FIRST CHOICE FOR REHAB AND MCC CARE IS [facility], SECOND CHOICE IS [facility]. PT WILL NOT CONSIDER [facility] AGAIN. CHOICE COMPLETED AND SIGNED. IMPORTANT MESSAGE FROM MEDICARE PROVIDED AND DISCUSSED. PT REPORTS THE LAST DONA THAT WAS DONE THEY HAD TO DO A LEVEL 2 SCREENING. CM CALLED MARIXA [facility], , LEFT MESSAGE ASKING FOR RETURN CALL. CM FAXED REFERRAL TO [facility] AT [phone]. CM FAXED COMPLETED DONA SCREENING AND SUPPORTING DOCUMENTS TO [facility] AT [phone]. CM WAITING ADMISSION DETERMINATION FROM [facility] AND DONA SCREENING COMPLETION. Brock Chavez, CASE MANAGEMENT Appended by Brock Chavez on 02/17/2018 9:57 SENIOR INTERNATIONAL TAX MANAGER: CM RECEIVED CALL FROM [facility], , WHO INSTRUCTED CM TO SEND THE REFERRAL AND THEIR DOCTOR AND DIRECTOR WILL LOOK AT IT TO MAKE ADMISSION DETERMINATION. REFERRAL PREVIOUSLY FAXED TODAY TO [facility] AT [phone]. CM WAITING ADMISSION DETERMINATION FROM [facility] AND DONA SCREENING COMPLETION. Brock Chavez CASE MANAGEMENT Appended by Brock Chavez on 02/17/2018 15:44 SENIOR INTERNATIONAL TAX MANAGER: CM RECEIVED DONA SCREENING RESPONSE, PT WILL REQUIRE LEVEL 2 SCREENING WHICH MAY TAKE UP TO 9 (NINE) BUSINESS DAYS TO COMPLETE. CM FAXED DONA DETERMINATION REQUIRING LEVEL 2 SCREEN TO [facility] AT [phone]. CM WAITING ADMISSION DETERMINATION FROM [facility] AND DONA LEVEL 2 SCREENING COMPLETION WHICH CAN TAKE UP TO 9 (NINE) BUSINESS DAYS. Brock Chavez, CASE MANAGEMENT DCP- Discharge Planning Updated by [id number]: Misti Mccann on 02/12/18 5:[address] Patient Name: CHRISTINE NGUYEN Admission Status: ER Accout number: [id number] Admission Date: 02-11-2018 : 1975 Admission Diagnosis: Attending: DREW DUMONT Current LOS: 1 Anticipated DC Date: Planned Disposition: Fdc Facility Primary Insurance: MEDICARE A & B Discharge Planning Comments: CM spoke with patient at bedside. Patient states she knows she can't return to her home. She is totally dependent of all her ADLs she is can feed herself but that is about all. APS has been notified of case. Patient is requesting to discharge to [facility]. CM will contact [facility]. CM will fax records to [facility] for possible placement when stable. CM will continue to follow and assist with discharge planning / needs. Transit Operator: Misti Mccann DCKOLEA - Discharge Planning Initial Assessment Updated by [id number]: Misti Mccann on 02/12/18 6:12 pm * Is the patient Alert and Oriented? Yes * PCP Dr. bueno * Pharmacy [facility] or [facility] * Preadmission Environment Home with Family * ADLs Total Dependent * Equipment Wheelchair * List name and contact numbers for known caregivers / representatives who currently or will assist patient after discharge: Meggan Carlson mother [phone] * Verbal permission to speak to the caregivers and representatives has been obtained from the patient. N/A * Community resources currently utilized None * Additional services required to return to the preadmission environment? Yes * Can the patient safely return to the preadmission environment? No * Has this patient been hospitalized within the prior 30 days at any hospital? No Coverage Notice Reviewer: [id number] Chavez Notice Issued Date-Time: 02/17/2018 8:10 Notice Type: IM Discharge Notice Notice Delivered To: Patient Relationship to Patient: Insulating Machine Operator Name: Delivery Method: HAND - Hand Delivered Lashonda Days: Prior Verbal Notification: Recipient Understood Notice: Yes Recipient Signature: Yes Med Rec Note Co-signed by Attending: Coverage Notice Comment: Reviewer: [id number] Chavez Notice Issued Date-Time: 02/17/2018 8:10 Notice Type: Patient Choice Letter Notice Delivered To: Patient Relationship to Patient: Insulating Machine Operator Name: Delivery Method: HAND - Hand Delivered Lashonda Days: Prior Verbal Notification: Recipient Understood Notice: Yes Recipient Signature: Yes Med Rec Note Co-signed by Attending: Coverage Notice Comment: 1- [facility] / 2- [facility] Reviewer: [id number] Sukumar Chavez Notice Issued Date-Time: 02/19/2018 9:30 Notice Type: Patient Choice Letter Notice Delivered To: Patient Relationship to Patient: Insulating Machine Operator Name: Delivery Method: HAND - Hand Delivered Lashonda Days: Prior Verbal Notification: Recipient Understood Notice: Yes Recipient Signature: Yes Med Rec Note Co-signed by Attending: Coverage Notice Comment: ANY [place] N[facility]ING HOME EXCEPT: [facility] OR [facility]. Last DP export: 02/22/18 2:15 Patient Name: CHRISTINE NGUYEN Page [id number] at 1525 All edits/amendments must be made on the electronic document DICTATION DATE: 02/22/181524 MACHINE INKER: KAYODE 02/22/181524 RPT#: [id number] DC DATE: STATUS: ADM IN [facility] [address] [place] [address] END OF REPORT
[2018-02-22 16:20] VITALS: BP 97/44
--- NOTE | 2018-02-22 18:03 | NUR ---
PATIENT HAS BEEN WANTING HER XANAX AND ULTRAM, HOWEVER HER B/P IS SO LOW, THAT I DO NOT FEEL COMFORTABLE GIVING IT TO HER.
--- NOTE | 2018-02-22 19:30 | NUR ---
RECEIVED REPORT, WILL ASSUME CARE OF PT, DENIES ANY NEEDS AT THIS TIME, BED IS LOW, SRX2, CALL LIGHT IN REACH, WILL CONTINUE PLAN OF CARE
--- NOTE | 2018-02-22 21:00 | NUR ---
[id number] 8 UNITS OF HUMULIN, ALSO 35 UNITS OF LANTUS, PT ALSO ASK FOR RESTORIL, GAVE ORDER
[2018-02-22 21:39] VITALS: BP 100/71
[2018-02-23] VITALS: BP 108/55
[2018-02-23 04:00] VITALS: BP 120/68
--- NOTE | 2018-02-23 07:15 | NUR ---
PATIENT LAYING IN BED ON BACK WITH EYES CLOSED AND BREATHING EVENLY. SR UP X 2 BED IN LOW POSITION AND CALL LIGHT IN REACH. DAUGHTER ASLEEP IN BED SIDE CHAIR. WILL CONTINUE TO MONITOR.
[2018-02-23 08:11] VITALS: BP 95/50
--- NOTE | 2018-02-23 10:39 | NUR ---
PATIENT SITTING UP IN BED VISITING WITH SIGNIFICANT OTHER. PATIENT DENIES ANY NEEDS OR PAIN. WILL CONTINUE WITH PLAN OF CARE
[2018-02-23 12:09] VITALS: BP 108/62
[2018-02-23 15:17] VITALS: BP 106/65
--- NOTE | 2018-02-23 15:18 | NUR ---
PATIENT STABLE AND UNCHANGED. WILL CONTINUE TO MONITOR.
--- NOTE | 2018-02-23 18:27 | NUR ---
PATIENT LAYING IN BED WATCHING TV AND VISITING WITH FAMILY. PATIENT DENIES ANY NEEDS OR COMPLAINTS. WILL CONTINUE TO MONITOR.
--- NOTE | 2018-02-23 19:38 | NUR ---
ALERT AND ORENTED ABLE TO VOICE NEEDS AND WANTS TO STAFF. YEAST TO ABD AND [place] ARE[place] IN PROGRESS. NO NEEDS AT THIS TIME.
[2018-02-23 20:00] VITALS: BP 110/68
[2018-02-24 00:55] VITALS: BP 97/52
[2018-02-24 04:00] VITALS: BP 100/66
--- NOTE | 2018-02-24 07:10 | NUR ---
RECIEVED REPORT FROM SUPERVISOR ENROBING. PATIENT LAYING IN BED WITH EYES CLOSED AND BREATHING EVENLY. BED IN LOW POSITION, SR UP X 2 CALL LIGHT IN REACH. WILL CONTINUE WITH PLAN OF CARE.
[2018-02-24 07:52] VITALS: BP 100/57
--- NOTE | 2018-02-24 10:15 | NUR ---
PATIENT SITTING UP IN BED READING NEWSPAPER. PATIENT DENIES ANY NEEDS OR PAIN. VITAL SIGNS STABLE. WILL CONTINUE TO MONITOR CLOSELY.
[2018-02-24 11:34] VITALS: BP 112/62
--- NOTE | 2018-02-24 11:49 | MORECARE ---
CASE MANAGEMENT DISCHARGE SUMMARY PATIENT: CHRISTINE NGUYEN UNIT: [id number] ADM DATE: 02/11/18 AGE: 42 : [birth year] SEX: F ROOM/BED: D.8500 AUTHOR: ABBEY ALVA PHYSICIAN: REFERRING PHYSICIAN: DREW DUMONT MD DATE OF SERVICE: 02/24/18 Discharge Plan Patient Name: CHRISTINE NGUYEN Facility: [facility]:[place] : 1975 Planned Disposition: Custodial Facility Anticipated Discharge Date: Discharge Date: Expected LOS: Initial Reviewer: [id number] Initial Review Date: 02/12/2018 Generated: 02/24/18 12:49 pm Comments DCP- Discharge Planning Updated by [id number]: Brock Chavez on 02/24/18 10:[address] Patient Name: CHRISTINE NGUYEN Encounter No: [id number] : 1975 Primary Insurance: MEDICARE A & B Anticipated DC Date: Planned Disposition: Custodial Facility External Planned Provider: [facility], MEDICARE REHAB BED DCP follow-up note: CM RECEIVED CALL FROM [facility], THEY WILL VISIT WITH PT IN HOSPITAL TODAY TO ASSESS PT FOR ADMISSION. CM HAS NOT YET RECEIVED LEVEL 2 DONA DETERMINATION. PT HAS BEEN DECLINED FOR [facility] CARE AT [facility], [facility], [facility], [facility], [facility] AND [facility]. CM WAITING ADMISSION DETERMINATION FROM [facility]. CM WAITING LEVEL 2 DONA SCREENING COMPLETION AND DETERMINATION. TERRA Amato DCP- Discharge Planning Updated by [id number]: Brock Chavez on 02/22/18 2:[address] Patient Name: CHRISTINE NGUYEN Encounter No: [id number] : 1975 Primary Insurance: MEDICARE A & B Anticipated DC Date: Planned Disposition: Custodial Facility External Planned Provider: [facility] DCP follow-up note: CM RECEIVED CALL FROM CHETNA PT'S STEP FATHER WHO REPORTS HE CALLED [facility] AND THEY TOLD HIM THE REASON THEY CANNOT ACCEPT IS THAT PT'S [facility] CARE MEDICAID WAS INACTIVE AND CM NEEDED TO FILE FOR [facility] CARE MEDICAID. CM EXPLAINED THAT THERE ARE OTHER FACTORS USED IN MAKING THEIR DECISION AND THAT THE JAIL, NOT CM, APPLIES FOR [facility] CARE MEDICAID. CHETNA STATES HE AND PT WANT HER TO GO TO [facility]; CM EXPLAINED THAT THE FACILITY HAD SAID NO; CHETNA ASKED FOR CM TO CALL THEM BACK AND HE WILL DO THE SAME. CM CALLED [facility], , LEFT DETAILED MESSAGE ASKING FOR RETURN CALL. CM RECEIVED CALL FROM CRISTAL K[place] [facility], SHE WILL VISIT WITH AND ASSESS PT FOR LEVEL 2 DONA SCREENING TODAY AFTER NOON. PT HAS BEEN DECLINED FOR HEALTHCARE MARKET CONSULTANT CARE FROM [facility], [facility] AND [facility]. CM WAITING ADMISSION DETERMINATIONS FROM [facility], [facility] AND [facility]. CM WAITING LEVEL 2 DONA SCREENING COMPLETION AND DETERMINATION. Brock Chavez, CASE MANAGEMENT Appended by Brock Chavez on 02/22/2018 15:16 TIPPLE MECHANIC: CM SPOKE TO DOROTHEA OF [facility], THEY WILL NOT ACCEPT PT. CM SPOKE TO [facility], THEY CANNOT MEET PT'S NEEDS. CM SPOKE TO NATHALIE OF [facility], THEY CANNOT TAKE PT. CM CALLED AND SPOKE TO [facility] WHO INFORMED CM THEY ARE STILL CONSIDERING PT FOR PLACEMENT AND WILL VISIT WITH PT ON 02-24-18. PT NOTIFIED OF ABOVE; PT CONTINUES TO DECLINE REFERRAL TO [facility] AND UNDERSTANDS IF [facility] DECLINES, CM WILL HAVE TO SEND REFERRAL OUTSIDE OF [place] FOR PLACEMENT CONSIDERATION. PT HAS BEEN DECLINED FOR HEALTHCARE MARKET CONSULTANT CARE AT [facility], [facility], [facility] AND [facility]. CM WAITING ADMISSION DETERMINATION FROM [facility]. CM WAITING LEVEL 2 DONA SCREENING COMPLETION AND DETERMINATION. Brock Chavez, CASE MANAGEMENT DCP- Discharge Planning Updated by [id number]: Brock Chavez on 02/19/18 3:[address] Patient Name: CHRISTINE NGUYEN Encounter No: [id number] : 1975 Primary Insurance: MEDICARE A & B Anticipated DC Date: Planned Disposition: Custodial Facility External Planned Provider: ANY ACCEPTING [facility], MEDICARE REHAB BED DCP follow-up note: CM RECEIVED CALL FROM [facility], THEY WILL NOT ACCEPT DUE TO FINANCIAL CONCERNS. CM SPOKE TO DR. DUMONT AND PROVIDED UPDATE. CM SPOKE TO PT IN ROOM WHO WAS UPSET STATING SHE PAID THEM THE MONEY THAT WAS OWED AND THE ONLY JAIL SHE OWES MONEY TO IS [facility] WHICH SHE OWES $21,000. CM DISCUSSED NURSING FACILITY OPTIONS IN [place], PT ASKED THAT REFERRALS BE SENT TO ALL LOCAL NURSING HOMES EXCEPT [facility] AND [facility]. CHOICE LETTER COMPLETED. CM FAXED REFERRALS TO [facility], [facility], [facility], [facility] AND [facility]. CM WAITING ADMISSION DETERMINATIONS FROM [facility], [facility], [facility], [facility] AND [facility]. CM WAITING LEVEL 2 DONA SCREENING COMPLETION AND DETERMINATION. Brock Chavez, CASE MANAGEMENT Appended by Brock Chavez on 02/19/2018 16:07 TIPPLE MECHANIC: CM RECEIVED CALL FROM PT WHO REPORTS THAT HER FATHER CALLED [facility] WHO INFORMED HIM THAT HER MEDICAID WAS INACTIVE. CM CALLED EDWIN OF [facility] [employer] AT [employer] WHO CONFIRMED PT HAD CHCF CARE MEDICAID THAT ENDED. EDWIN INFORMED CM THAT THE JAIL WILL NEED TO REAPPLY FOR CHCF CARE MEDICAID, SHE IS NOT ABLE TO DO THAT APPLICATION. PT NOTIFIED. CM RECEIVED CALL FROM [facility] WHO DECLINED PT. PT HAS BEEN DECLINED FOR HEALTHCARE MARKET CONSULTANT CARE FROM [facility]. CM WAITING ADMISSION DETERMINATIONS FROM [facility], [facility], [facility] AND [facility]. CM WAITING LEVEL 2 DONA SCREENING COMPLETION AND DETERMINATION. Brock Chavez CASE MANAGEMENT Appended by Brock Chavez on 02/19/2018 16:55 TIPPLE MECHANIC: CM RECEIVED MESSAGE FROM [facility], PT HAS BEEN DECLINED. PT HAS BEEN DECLINED FOR [facility] CARE FROM [facility] AND [facility]. CM WAITING ADMISSION DETERMINATIONS FROM [facility], [facility] AND [facility]. CM WAITING LEVEL 2 DONA SCREENING COMPLETION AND DETERMINATION. TERRA Amato DCP- Discharge Planning Updated by [id number]: Brock Chavez on 02/17/18 2:[address] Patient Name: CHRISTINE NGUYEN Encounter No: [id number] : 1975 Primary Insurance: MEDICARE A & B Anticipated DC Date: Planned Disposition: Custodial Facility External Planned Provider: [facility], MEDICARE REHAB BED DCP follow-up note: CM COMPLETED DONA THAT CM STARTED ON 02-15-18, DOCTOR AND PT SIGNATURES WERE OBTAINED. CM MET WITH PT IN ROOM TO DISCUSS DISCHARGE PLANNING AND NEEDS. PT REPORTS SHE IS NOT ABLE TO CARE FOR HERSELF AND HER PARENTS, WHOM SHE WAS LIVING WITH, ARE NOT ABLE TO EITHER. PT WOULD LIKE PLACMENT AT [facility]. PT HAS TALKED TO [facility] WHO TOLD HER THAT IT DEPENDS ON IF THE DOCTOR WILL TAKE HER BACK THERE OR NOT. PT REPORTS SHE HAS BEEN TO [facility], [facility] AND [facility] FOR REHAB AND HEALTHCARE MARKET CONSULTANT CARE IN THE PAST. PT LEFT THE [facility] IN FEBRUARY OR MARCH OF THIS YEAR AND MOVED IN WITH HER PARENTS. PT'S FIRST CHOICE FOR REHAB AND CHCF CARE IS [facility], SECOND CHOICE IS THE [facility]. PT WILL NOT CONSIDER [facility] AGAIN. CHOICE COMPLETED AND SIGNED. IMPORTANT MESSAGE FROM MEDICARE PROVIDED AND DISCUSSED. PT REPORTS THE LAST DONA THAT WAS DONE THEY HAD TO DO A LEVEL 2 SCREENING. CM CALLED [facility], , LEFT MESSAGE ASKING FOR RETURN CALL. CM FAXED REFERRAL TO [facility] AT [phone]. CM FAXED COMPLETED DONA SCREENING AND SUPPORTING DOCUMENTS TO [facility] AT [phone]. CM WAITING ADMISSION DETERMINATION FROM [facility] AND DONA SCREENING COMPLETION. Brock Chavez, CASE MANAGEMENT Appended by Brock Chavez on 02/17/2018 9:57 TIPPLE MECHANIC: CM RECEIVED CALL FROM [facility], , WHO INSTRUCTED CM TO SEND THE REFERRAL AND THEIR DOCTOR AND DIRECTOR WILL LOOK AT IT TO MAKE ADMISSION DETERMINATION. REFERRAL PREVIOUSLY FAXED TODAY TO [facility] AT [phone]. CM WAITING ADMISSION DETERMINATION FROM [facility] AND DONA SCREENING COMPLETION. Brock Chavez CASE MANAGEMENT Appended by Brock Chavez on 02/17/2018 15:44 TIPPLE MECHANIC: CM RECEIVED DONA SCREENING RESPONSE, PT WILL REQUIRE LEVEL 2 SCREENING WHICH MAY TAKE UP TO 9 (NINE) BUSINESS DAYS TO COMPLETE. CM FAXED DONA DETERMINATION REQUIRING LEVEL 2 SCREEN TO [facility] AT [phone]. CM WAITING ADMISSION DETERMINATION FROM [facility] AND DONA LEVEL 2 SCREENING COMPLETION WHICH CAN TAKE UP TO 9 (NINE) BUSINESS DAYS. Brock Kathy, CASE MANAGEMENT DCP- Discharge Planning Updated by [id number]: Misti Ramy on 02/12/18 5:[address] Patient Name: CHRISTINE NGUYEN Admission Status: ER Accout number: [id number] Admission Date: 02-11-2018 : 1975 Admission Diagnosis: Attending: DREW DUMONT Current LOS: 1 Anticipated DC Date: Planned Disposition: Custodial Facility Primary Insurance: MEDICARE A & B Discharge Planning Comments: CM spoke with patient at bedside. Patient states she knows she can't return to her home. She is totally dependent of all her ADLs she is can feed herself but that is about all. [facility] has been notified of case. Patient is requesting to discharge to [facility]. CM will contact [facility]. CM will fax records to [facility] for possible placement when stable. CM will continue to follow and assist with discharge planning / needs. Line Camera Operator: Misti Mccann DCPIA - Discharge Planning Initial Assessment Updated by [id number]: Misti Rmay on 02/12/18 6:12 pm * Is the patient Alert and Oriented? Yes * PCP Dr. bueno * Pharmacy [facility] * Preadmission Environment Home with Family * ADLs Total Dependent * Equipment Wheelchair * List name and contact numbers for known caregivers / representatives who currently or will assist patient after discharge: Meggan Carlson mother [phone] * Verbal permission to speak to the caregivers and representatives has been obtained from the patient. N/A * Community resources currently utilized None * Additional services required to return to the preadmission environment? Yes * Can the patient safely return to the preadmission environment? No * Has this patient been hospitalized within the prior 30 days at any hospital? No Coverage Notice Reviewer: [id number] Sukumar Chavez Notice Issued Date-Time: 02/17/2018 8:10 Notice Type: IM Discharge Notice Notice Delivered To: Patient Relationship to Patient: Anchorer Name: Delivery Method: HAND - Hand Delivered [place] Days: Prior Verbal Notification: Recipient Understood Notice: Yes Recipient Signature: Yes Med Rec Note Co-signed by Attending: Coverage Notice Comment: Reviewer: [id number] Sukumar Chavez Notice Issued Date-Time: 02/17/2018 8:10 Notice Type: Patient Choice Letter Notice Delivered To: Patient Relationship to Patient: Anchorer Name: Delivery Method: HAND - Hand Delivered [place] Days: Prior Verbal Notification: Recipient Understood Notice: Yes Recipient Signature: Yes Med Rec Note Co-signed by Attending: Coverage Notice Comment: 1- [facility] / 2- PASCUAL MORA Reviewer: [id number] - Brock Chavez Notice Issued Date-Time: 02/19/2018 9:30 Notice Type: Patient Choice Letter Notice Delivered To: Patient Relationship to Patient: Anchorer Name: Delivery Method: HAND - Hand Delivered [place]ash[place] Days: Prior Verbal Notification: Recipient Understood Notice: Yes Recipient Signature: Yes Med Rec Note Co-signed by Attending: Coverage Notice Comment: ANY [place] NUSING HOME EXCEPT: [facility]. Last DP export: 02/22/18 2:25 Patient Name: CHRISTINE NGUYEN Page [id number] at 1149 All edits/amendments must be made on the electronic document DICTATION DATE: 02/24/18 1149 BULK TANK DRIVER: KAYODE 02/24/18 1149 RPT#: [id number] DC DATE: STATUS: ADM IN [facility] [address] [place] [address] END OF REPORT
--- NOTE | 2018-02-24 12:41 | NUR ---
PATIENT STABLE AND UNCHANGED . PATIENT DENIES NEEDS OR PAIN. PATIENT VISITING WITH DTR AT BEDSIDE. WILL CONTINUE TO MONITOR.
--- NOTE | 2018-02-24 12:46 | NUR ---
PATIENT STABLE AND UNCHANGED. REPOSITIONED FOR COMFORT. PATIENT DENIES ANY NEEDS OR PAIN. WILL CONTINUE TO MONITOR.
--- NOTE | 2018-02-24 15:30 | NUR ---
PATIENT LAYING ON RT SIDE WITH EYES CLOSED AND BREATHING EVENLY. SR UP X 2 BED IN LOW POSITION AND CALL LIGHT INREACH.
--- NOTE | 2018-02-24 19:20 | NUR ---
RESUME CARE. PT LAYING IN BED A&O NO C/O OF PAIN OR DISTRESS AT THIS TIME CALL LIGHT IN REACH WILL CONT TO SOMMER
[2018-02-24 20:00] VITALS: BP 117/75
--- NOTE | 2018-02-24 22:44 | NUR ---
BS 209 GAVE 8 UNITS OG HUMULIN AND 35 UNITS OF LANTUS
--- NOTE | 2018-02-24 23:03 | NUR ---
PT GIVEN RESTORIL TO HELP SLEEP TOLERATED WELL
[2018-02-25] VITALS (7 sets, daily range): BP systolic 76–114; BP diastolic 49–70
--- NOTE | 2018-02-25 00:04 | NUR ---
PT GIVEN TYLENOL FOR PAIN TOLERATED WELL
--- NOTE | 2018-02-25 09:33 | NUR ---
REPORTED TO ME PT'S BP IS 76/54. RECHECKED BP AND IT IS 94/55. GAVE PT A DIET COKE AND WILL CONTINUE TO MONITOR.
--- NOTE | 2018-02-25 09:56 | NUR ---
PT RECEIVED BED BATH AND COMPLETE LINEN CHANGE BY COCOA MILL OPERATOR.
--- NOTE | 2018-02-25 10:54 | NUR ---
RESTING QUIETLY NAD NOTED
--- NOTE | 2018-02-25 12:33 | NUR ---
PT TRANSFERED FROM RECLINER CHAIR TO BED AND PLACED ON BED [place].
--- NOTE | 2018-02-25 14:32 | NUR ---
PT'S "FIANCE" ANYTHONY CALLED LOOKING FOR PT. PT IS ASLEEP AT THIS TIME AND I STATED THIS TO HIM. HE STATED "OK TELL HER I CALLED."
--- NOTE | 2018-02-25 14:37 | NUR ---
CALLED DR. ENGLISH FERRELL HE IS OUT SO I SPOKE WITH DR. VEGA TO NOTIFY HIM OF PT'S BP. HE ASKED ABOUT PT'S YEAST AND I STATED ITS STILL THERE AND VERY RED HE ORDERED FLUCONAZOLE 100MG DAILY PO X5 DAY. I ALSO STATED TO HIM PT'S TRAMADOL FELL OFF IF I COULD RENEW IT. HE STATED THAT'S FINE JUST DON'T GIVE WHEN PT'S BP IS REAL LOW.
--- NOTE | 2018-02-25 14:39 | NUR ---
Nutrition follow-up: Diet: ADA consistent CHO PO intake ~75% of meals Labs reviewed +BM Wt: 164# RDN following.
--- NOTE | 2018-02-25 15:25 | NUR ---
STATED TO PT DIANA CALLED AND I STATED TO HIM THAT SHE WAS ASLEEP. SHE STATED "OK."
--- NOTE | 2018-02-25 17:57 | NUR ---
RIGHT FA 20G IV INSERTED ON X1 ATTEMPT.
[2018-02-26] VITALS: BP 101/60
[2018-02-26 04:00] VITALS: BP 92/59
[2018-02-26 06:13] LABS: CALC OSMOLALITY 278 mosm/kg (275-300); CALCIUM 8.7 mg/dL (8.5-10.1); CARBON DIOXIDE 28.9 mmol/L (21.0-32.0); CHLORIDE - SERUM 103 mmol/L (98-107); CREATININE - SERUM 0.8 mg/dL (0.6-1.3); POTASSIUM - SERUM 3.6 mmol/L (3.5-5.1); SODIUM 139 mmol/L (136-145); UREA NITROGEN 17 mg/dL (7-18); eGFR NON AFRICAN AMERICAN 83 mL/min (90-120)
[2018-02-26 06:21] LABS: GLUCOSE 87 mg/dL (74-106)
[2018-02-26 08:31] VITALS: BP 90/53
--- NOTE | 2018-02-26 11:51 | NUR ---
PT INCONTINENT OF URINE. COMPLETE BED CHANGE DONE.
--- NOTE | 2018-02-26 12:37 | MORECARE ---
CASE MANAGEMENT DISCHARGE SUMMARY PATIENT: CHRISTINE NGUYEN UNIT: [id number] ADM DATE: 02/11/18 AGE: 42 : [birth year] SEX: F ROOM/BED: D.3930 AUTHOR: ABBEY ALVA PHYSICIAN: REFERRING PHYSICIAN: DREW DUMONT MD DATE OF SERVICE: 02/26/18 Discharge Plan Patient Name: CHRISTINE NGUYEN Facility: [facility]:[place] : 1975 Planned Disposition: Prison Facility Anticipated Discharge Date: 02/26/18 Discharge Date: Expected LOS: 15 Initial Reviewer: [id number] Initial Review Date: 02/12/2018 Generated: 02/26/18 1:37 pm Comments DCP- Discharge Planning Updated by [id number]: Brock Chavez on 02/24/18 10:[address] Patient Name: CHRISTINE NGUYEN Encounter No: [id number] : 1975 Primary Insurance: MEDICARE A & B Anticipated DC Date: Planned Disposition: Prison Facility External Planned Provider: [facility], MEDICARE REHAB BED DCP follow-up note: CM RECEIVED CALL FROM [facility], THEY WILL VISIT WITH PT IN HOSPITAL TODAY TO ASSESS PT FOR ADMISSION. CM HAS NOT YET RECEIVED LEVEL 2 DONA DETERMINATION. PT HAS BEEN DECLINED FOR GROUP HOME CARE AT [facility], [facility], [facility], [facility], [facility], [facility] AND [facility]. CM WAITING ADMISSION DETERMINATION FROM [facility]. CM WAITING LEVEL 2 DONA SCREENING COMPLETION AND DETERMINATION. TERRA Amato DCP- Discharge Planning Updated by [id number]: Brock Chavez on 02/22/18 2:[address] Patient Name: CHRISTINE NGUYEN Encounter No: [id number] : 1975 Primary Insurance: MEDICARE A & B Anticipated DC Date: Planned Disposition: Prison Facility External Planned Provider: [facility] DCP follow-up note: CM RECEIVED CALL FROM CHETNA PT'S STEP FATHER WHO REPORTS HE CALLED [facility] AND THEY TOLD HIM THE REASON THEY CANNOT ACCEPT IS THAT PT'S FLIGHT ENGINEER MANAGER CARE MEDICAID WAS INACTIVE AND CM NEEDED TO FILE FOR GROUP HOME CARE MEDICAID. CM EXPLAINED THAT THERE ARE OTHER FACTORS USED IN MAKING THEIR DECISION AND THAT THE DETENTION, NOT CM, APPLIES FOR FLIGHT ENGINEER MANAGER CARE MEDICAID. CHETNA STATES HE AND PT WANT HER TO GO TO [facility]; CM EXPLAINED THAT THE FACILITY HAD SAID NO; CHETNA ASKED FOR CM TO CALL THEM BACK AND HE WILL DO THE SAME. CM CALLED [facility], , LEFT DETAILED MESSAGE ASKING FOR RETURN CALL. CM RECEIVED CALL FROM CRISTAL OF [facility], SHE WILL VISIT WITH AND ASSESS PT FOR LEVEL 2 DONA SCREENING TODAY AFTER NOON. PT HAS BEEN DECLINED FOR GROUP HOME CARE FROM [facility], [facility] AND [facility] CM WAITING ADMISSION DETERMINATIONS FROM [facility], [facility] AND [facility]. CM WAITING LEVEL 2 DONA SCREENING COMPLETION AND DETERMINATION. Brock Chavez, CASE MANAGEMENT Appended by Brock Chavez on 02/22/2018 15:16 INSULATION NOZZLEMAN: CM SPOKE TO DOROTHEA OF [facility], THEY WILL NOT ACCEPT PT. CM SPOKE TO [facility], THEY CANNOT MEET PT'S NEEDS. CM SPOKE TO NATHALIE OF [facility], THEY CANNOT TAKE PT. CM CALLED AND SPOKE TO [facility] WHO INFORMED CM THEY ARE STILL CONSIDERING PT FOR PLACEMENT AND WILL VISIT WITH PT ON 02-24-18. PT NOTIFIED OF ABOVE; PT CONTINUES TO DECLINE REFERRAL TO [facility] AND UNDERSTANDS IF [facility] DECLINES, CM WILL HAVE TO SEND REFERRAL OUTSIDE OF [place] FOR PLACEMENT CONSIDERATION. PT HAS BEEN DECLINED FOR GROUP HOME CARE AT [facility], [facility], [facility], [facility] AND [facility] CM WAITING ADMISSION DETERMINATION FROM [facility]. CM WAITING LEVEL 2 DONA SCREENING COMPLETION AND DETERMINATION. Brock Chavez, CASE MANAGEMENT DCP- Discharge Planning Updated by [id number]: Brock Chavez on 02/19/18 3:[address] Patient Name: CHRISTINE NGUYEN Encounter No: [id number] : 1975 Primary Insurance: MEDICARE A & B Anticipated DC Date: Planned Disposition: Prison Facility External Planned Provider: ANY ACCEPTING [place] [facility]ENTION, MEDICARE REHAB BED DCP follow-up note: CM RECEIVED CALL FROM [facility], THEY WILL NOT ACCEPT DUE TO FINANCIAL CONCERNS. CM SPOKE TO DR. DUMONT AND PROVIDED UPDATE. CM SPOKE TO PT IN ROOM WHO WAS UPSET STATING SHE PAID THEM THE MONEY THAT WAS OWED AND THE ONLY DETENTION SHE OWES MONEY TO IS [facility] WHICH SHE OWES $21,000. CM DISCUSSED NURSING FACILITY OPTIONS IN [place], PT ASKED THAT REFERRALS BE SENT TO ALL LOCAL NURSING HOMES EXCEPT [facility] AND [facility]. CHOICE LETTER COMPLETED. CM FAXED REFERRALS TO [facility], [facility], [facility], [facility] AND [facility]. CM WAITING ADMISSION DETERMINATIONS FROM [facility], [facility], [facility], [facility] AND [facility]. CM WAITING LEVEL 2 DONA SCREENING COMPLETION AND DETERMINATION. Brock Chavez, CASE MANAGEMENT Appended by Brock Chavez on 02/19/2018 16:07 INSULATION NOZZLEMAN: CM RECEIVED CALL FROM PT WHO REPORTS THAT HER FATHER CALLED [facility] WHO INFORMED HIM THAT HER MEDICAID WAS INACTIVE. CM CALLED EDWIN OF [facility] [employer] [facility] [place] WHO CONFIRMED PT HAD GROUP HOME CARE MEDICAID THAT ENDED. EDWIN INFORMED CM THAT THE DETENTION WILL NEED TO REAPPLY FOR FLIGHT ENGINEER MANAGER CARE MEDICAID, SHE IS NOT ABLE TO DO THAT APPLICATION. PT NOTIFIED. CM RECEIVED CALL FROM [facility] WHO DECLINED PT. PT HAS BEEN DECLINED FOR FLIGHT ENGINEER MANAGER CARE FROM [facility]. CM WAITING ADMISSION DETERMINATIONS FROM [facility], [facility], [facility] AND [facility]. CM WAITING LEVEL 2 DONA SCREENING COMPLETION AND DETERMINATION. Brock Chavez CASE MANAGEMENT Appended by Brock Chavez on 02/19/2018 16:55 INSULATION NOZZLEMAN: CM RECEIVED MESSAGE FROM [facility], PT HAS BEEN DECLINED. PT HAS BEEN DECLINED FOR GROUP HOME CARE FROM [facility] AND [facility]. CM WAITING ADMISSION DETERMINATIONS FROM [facility], [facility] AND [facility]. CM WAITING LEVEL 2 DONA SCREENING COMPLETION AND DETERMINATION. TERRA Amato MANAGEMENT DCP- Discharge Planning Updated by [id number]: Brock Chavez on 02/17/18 2:[address] Patient Name: CHRISTINE NGUYEN Encounter No: [id number] : 1975 Primary Insurance: MEDICARE A & B Anticipated DC Date: Planned Disposition: Prison Facility External Planned Provider: [facility], MEDICARE REHAB BED DCP follow-up note: CM COMPLETED DONA THAT CM STARTED ON 02-15-18, DOCTOR AND PT SIGNATURES WERE OBTAINED. CM MET WITH PT IN ROOM TO DISCUSS DISCHARGE PLANNING AND NEEDS. PT REPORTS SHE IS NOT ABLE TO CARE FOR HERSELF AND HER PARENTS, WHOM SHE WAS LIVING WITH, ARE NOT ABLE TO EITHER. PT WOULD LIKE PLACMENT AT [facility]. PT HAS TALKED TO [facility] WHO TOLD HER THAT IT DEPENDS ON IF THE DOCTOR WILL TAKE HER BACK THERE OR NOT. PT REPORTS SHE HAS BEEN TO [facility], [facility] AND [facility] FOR REHAB AND FLIGHT ENGINEER MANAGER CARE IN THE PAST. PT LEFT [facility] IN FEBRUARY OR MARCH OF THIS YEAR AND MOVED IN WITH HER PARENTS. PT'S FIRST CHOICE FOR REHAB AND GROUP HOME CARE IS [facility], SECOND CHOICE IS [facility] PT WILL NOT CONSIDER [facility] AGAIN. CHOICE COMPLETED AND SIGNED. IMPORTANT MESSAGE FROM MEDICARE PROVIDED AND DISCUSSED. PT REPORTS THE LAST DONA THAT WAS DONE THEY HAD TO DO A LEVEL 2 SCREENING. CM CALLED [facility], , LEFT MESSAGE ASKING FOR RETURN CALL. CM FAXED REFERRAL TO [facility] AT [phone]. CM FAXED COMPLETED DONA SCREENING AND SUPPORTING DOCUMENTS TO [facility] AT [phone]. CM WAITING ADMISSION DETERMINATION FROM [facility] AND DONA SCREENING COMPLETION. Brock Chavez, CASE MANAGEMENT Appended by Brock Chavez on 02/17/2018 9:57 INSULATION NOZZLEMAN: CM RECEIVED CALL FROM [facility], , WHO INSTRUCTED CM TO SEND THE REFERRAL AND THEIR DOCTOR AND DIRECTOR WILL LOOK AT IT TO MAKE ADMISSION DETERMINATION. REFERRAL PREVIOUSLY FAXED TODAY TO [facility] AT [phone]. CM WAITING ADMISSION DETERMINATION FROM [facility] AND DONA SCREENING COMPLETION. Brock Chavez, CASE MANAGEMENT Appended by Brock Chavez on 02/17/2018 15:44 INSULATION NOZZLEMAN: CM RECEIVED DONA SCREENING RESPONSE, PT WILL REQUIRE LEVEL 2 SCREENING WHICH MAY TAKE UP TO 9 (NINE) BUSINESS DAYS TO COMPLETE. CM FAXED DONA DETERMINATION REQUIRING LEVEL 2 SCREEN TO [facility] AT [phone]. CM WAITING ADMISSION DETERMINATION FROM [facility] AND DONA LEVEL 2 SCREENING COMPLETION WHICH CAN TAKE UP TO 9 (NINE) BUSINESS DAYS. Brock Myton, CASE MANAGEMENT DCP- Discharge Planning Updated by [id number]: Misti Mccann on 02/12/18 5:[address] Patient Name: CHRISTINE NGUYEN Admission Status: ER Accout number: [id number] Admission Date: 02-11-2018 : 1975 Admission Diagnosis: Attending: DREW DUMONT Current LOS: 1 Anticipated DC Date: Planned Disposition: Prison Facility Primary Insurance: MEDICARE A & B Discharge Planning Comments: CM spoke with patient at bedside. Patient states she knows she can't return to her home. She is totally dependent of all her ADLs she is can feed herself but that is about all. [facility] has been notified of case. Patient is requesting to discharge to [facility]. CM will contact [facility]. CM will fax records to [facility] for possible placement when stable. CM will continue to follow and assist with discharge planning / needs. Chiropractic Practice Manager: Misti Mccann DCPIA - Discharge Planning Initial Assessment Updated by [id number]: Misti Mccann on 02/12/18 6:12 pm * Is the patient Alert and Oriented? Yes * PCP Dr. bueno * Pharmacy [place] [facility] * Preadmission Environment Home with Family * ADLs Total Dependent * Equipment Wheelchair * List name and contact numbers for known caregivers / representatives who currently or will assist patient after discharge: Meggan lorenzana [phone] * Verbal permission to speak to the caregivers and representatives has been obtained from the patient. N/A * Community resources currently utilized None * Additional services required to return to the preadmission environment? Yes * Can the patient safely return to the preadmission environment? No * Has this patient been hospitalized within the prior 30 days at any hospital? No Coverage Notice Reviewer: [id number] Sukumar Chavez Notice Issued Date-Time: 02/17/2018 8:10 Notice Type: IM Discharge Notice Notice Delivered To: Patient Relationship to Patient: Stock Pitcher Name: Delivery Method: HAND - Hand Delivered [place] Days: Prior Verbal Notification: Recipient Understood Notice: Yes Recipient Signature: Yes Med Rec Note Co-signed by Attending: Coverage Notice Comment: Reviewer: [id number] Sukumar Chavez Notice Issued Date-Time: 02/17/2018 8:10 Notice Type: Patient Choice Letter Notice Delivered To: Patient Relationship to Patient: Stock Pitcher Name: Delivery Method: HAND - Hand Delivered [place] Days: Prior Verbal Notification: Recipient Understood Notice: Yes Recipient Signature: Yes Med Rec Note Co-signed by Attending: Coverage Notice Comment: 1- CANDI ROGERS / 2- PASCUAL MORA Reviewer: [id number] - Brock Chavez Notice Issued Date-Time: 02/19/2018 9:30 Notice Type: Patient Choice Letter Notice Delivered To: Patient Relationship to Patient: Stock Pitcher Name: Delivery Method: HAND - Hand Delivered [place] Days: Prior Verbal Notification: Recipient Understood Notice: Yes Recipient Signature: Yes Med Rec Note Co-signed by Attending: Coverage Notice Comment: ANY [place] NUSING HOME EXCEPT: [facility]. Last DP export: 02/24/18 10:49 am Patient Name: CHRISTINE NGUYEN Page [id number] at 1237 All edits/amendments must be made on the electronic document DICTATION DATE: 02/26/18 1237 COLLEGE TUTOR: KAYODE 02/26/18 1237 RPT#: [id number] DC DATE: STATUS: ADM IN [facility] [address] [place] [address] END OF REPORT
--- NOTE | 2018-02-26 12:47 | MORECARE ---
CASE MANAGEMENT DISCHARGE SUMMARY PATIENT: CHRISTINE NGUYEN UNIT: [id number] ADM DATE: 02/11/18 AGE: 42 : [birth year] SEX: F ROOM/BED: D.5180 AUTHOR: ABBEY ALVA PHYSICIAN: REFERRING PHYSICIAN: DREW DUMONT MD DATE OF SERVICE: 02/26/18 Discharge Plan Patient Name: CHRISTINE NGUYEN Facility: [facility]:[place] : 1975 Planned Disposition: [facility] Facility Anticipated Discharge Date: 02/26/18 Discharge Date: Expected LOS: 15 Initial Reviewer: [id number] Initial Review Date: 02/12/2018 Generated: 02/26/18 1:47 pm Comments DCP- Discharge Planning Updated by [id number]: Brock Chavez on 02/24/18 10:[address] Patient Name: CHRISTINE NGUYEN Encounter No: [id number] : 1975 Primary Insurance: MEDICARE A & B Anticipated DC Date: Planned Disposition: [facility] Facility External Planned Provider: [facility], MEDICARE REHAB BED DCP follow-up note: CM RECEIVED CALL FROM [facility], THEY WILL VISIT WITH PT IN HOSPITAL TODAY TO ASSESS PT FOR ADMISSION. CM HAS NOT YET RECEIVED LEVEL 2 DONA DETERMINATION. PT HAS BEEN DECLINED FOR LONG-TERM CARE AT [facility], [facility], [facility], [facility], [place], [facility] AND [facility]. CM WAITING ADMISSION DETERMINATION FROM [place]. CM WAITING LEVEL 2 DONA SCREENING COMPLETION AND DETERMINATION. TERRA Amato DCP- Discharge Planning Updated by [id number]: Brock Chavez on 02/22/18 2:[address] Patient Name: CHRISTINE NGUYEN Encounter No: [id number] : 1975 Primary Insurance: MEDICARE A & B Anticipated DC Date: Planned Disposition: [facility]fp Facility External Planned Provider: [facility] DCP follow-up note: CM RECEIVED CALL FROM CHETNA PT'S STEP FATHER WHO REPORTS HE CALLED [facility] AND THEY TOLD HIM THE REASON THEY CANNOT ACCEPT IS THAT PT'S HAMMER SETTER CARE MEDICAID WAS INACTIVE AND CM NEEDED TO FILE FOR LONG-TERM CARE MEDICAID. CM EXPLAINED THAT THERE ARE OTHER FACTORS USED IN MAKING THEIR DECISION AND THAT THE MCC, NOT CM, APPLIES FOR HAMMER SETTER CARE MEDICAID. CHETNA STATES HE AND PT WANT HER TO GO TO [facility]; CM EXPLAINED THAT THE FACILITY HAD SAID NO; CHETNA ASKED FOR CM TO CALL THEM BACK AND HE WILL DO THE SAME. CM CALLED [facility], , LEFT DETAILED MESSAGE ASKING FOR RETURN CALL. CM RECEIVED CALL FROM CRISTAL OF [facility], SHE WILL VISIT WITH AND ASSESS PT FOR LEVEL 2 DONA SCREENING TODAY AFTER NOON. PT HAS BEEN DECLINED FOR LONG-TERM CARE FROM [facility], [place] AND [facility]. CM WAITING ADMISSION DETERMINATIONS FROM [facility], [place] AND [facility]. CM WAITING LEVEL 2 DONA SCREENING COMPLETION AND DETERMINATION. Brock Chavez, CASE MANAGEMENT Appended by Brock Chavez on 02/22/2018 15:16 HUMAN SERVICES PROGRAM SPECIALIST: CM SPOKE TO DOROTHEA OF [facility], THEY WILL NOT ACCEPT PT. CM SPOKE TO [facility], THEY CANNOT MEET PT'S NEEDS. CM SPOKE TO NATHALIE OF [facility], THEY CANNOT TAKE PT. CM CALLED AND SPOKE TO [facility] WHO INFORMED CM THEY ARE STILL CONSIDERING PT FOR PLACEMENT AND WILL VISIT WITH PT ON 02-24-18. PT NOTIFIED OF ABOVE; PT CONTINUES TO DECLINE REFERRAL TO [facility] AND UNDERSTANDS IF [place] DECLINES, CM WILL HAVE TO SEND REFERRAL OUTSIDE OF [place] FOR PLACEMENT CONSIDERATION. PT HAS BEEN DECLINED FOR LONG-TERM CARE AT [facility], [facility], [facility], [facility] AND [facility]. CM WAITING ADMISSION DETERMINATION FROM [place]. CM WAITING LEVEL 2 DONA SCREENING COMPLETION AND DETERMINATION. Brock Chavez, CASE MANAGEMENT DCP- Discharge Planning Updated by [id number]: Brock Chavez on 02/19/18 3:[address] Patient Name: CHRISTINE NGUYEN Encounter No: [id number] : 1975 Primary Insurance: MEDICARE A & B Anticipated DC Date: Planned Disposition: Mcfp Facility External Planned Provider: ANY ACCEPTING [place] [facility], MEDICARE REHAB BED DCP follow-up note: CM RECEIVED CALL FROM [facility], THEY WILL NOT ACCEPT DUE TO FINANCIAL CONCERNS. CM SPOKE TO DR. DUMONT AND PROVIDED UPDATE. CM SPOKE TO PT IN ROOM WHO WAS UPSET STATING SHE PAID THEM THE MONEY THAT WAS OWED AND THE ONLY MCC SHE OWES MONEY TO IS [facility] WHICH SHE OWES $21,000. CM DISCUSSED NURSING FACILITY OPTIONS IN [place], PT ASKED THAT REFERRALS BE SENT TO ALL LOCAL NURSING HOMES EXCEPT [facility] AND [facility]. CHOICE LETTER COMPLETED. CM FAXED REFERRALS TO [facility], [place], [place], [facility] AND [facility]. CM WAITING ADMISSION DETERMINATIONS FROM [facility], [place], [place], [facility] AND [facility]. CM WAITING LEVEL 2 DONA SCREENING COMPLETION AND DETERMINATION. Brock Chavez, CASE MANAGEMENT Appended by Brock Chavez on 02/19/2018 16:07 HUMAN SERVICES PROGRAM SPECIALIST: CM RECEIVED CALL FROM PT WHO REPORTS THAT HER FATHER CALLED [facility] WHO INFORMED HIM THAT HER MEDICAID WAS INACTIVE. CM CALLED EDWIN OF [facility] [place] WHO CONFIRMED PT HAD LONG-TERM CARE MEDICAID THAT ENDED. EDWIN INFORMED CM THAT THE [facility] WILL NEED TO REAPPLY FOR HAMMER SETTER CARE MEDICAID, SHE IS NOT ABLE TO DO THAT APPLICATION. PT NOTIFIED. CM RECEIVED CALL FROM [facility] WHO DECLINED PT. PT HAS BEEN DECLINED FOR HAMMER SETTER CARE FROM [facility]. CM WAITING ADMISSION DETERMINATIONS FROM [facility], [place], [facility] AND [facility]. CM WAITING LEVEL 2 DONA SCREENING COMPLETION AND DETERMINATION. Brock Chavez CASE MANAGEMENT Appended by Brock Chavez on 02/19/2018 16:55 HUMAN SERVICES PROGRAM SPECIALIST: CM RECEIVED MESSAGE FROM [facility], PT HAS BEEN DECLINED. PT HAS BEEN DECLINED FOR LONG-TERM CARE FROM [facility] AND [facility]. CM WAITING ADMISSION DETERMINATIONS FROM [facility], [place] AND [facility]. CM WAITING LEVEL 2 DONA SCREENING COMPLETION AND DETERMINATION. TERRA Amato MANAGEMENT DCP- Discharge Planning Updated by [id number]: Brock Chavez on 02/17/18 2:[address] Patient Name: CHRISTINE NGUYEN Encounter No: [id number] : 1975 Primary Insurance: MEDICARE A & B Anticipated DC Date: Planned Disposition: Mcfp Facility External Planned Provider: [facility], MEDICARE REHAB BED DCP follow-up note: CM COMPLETED DONA THAT CM STARTED ON 02-15-18, DOCTOR AND PT SIGNATURES WERE OBTAINED. CM MET WITH PT IN ROOM TO DISCUSS DISCHARGE PLANNING AND NEEDS. PT REPORTS SHE IS NOT ABLE TO CARE FOR HERSELF AND HER PARENTS, WHOM SHE WAS LIVING WITH, ARE NOT ABLE TO EITHER. PT WOULD LIKE PLACMENT AT [facility]. PT HAS TALKED TO [facility] WHO TOLD HER THAT IT DEPENDS ON IF THE DOCTOR WILL TAKE HER BACK THERE OR NOT. PT REPORTS SHE HAS BEEN TO [facility], [facility] AND [facility] FOR REHAB AND HAMMER SETTER CARE IN THE PAST. PT LEFT THE [facility] IN FEBRUARY OR MARCH OF THIS YEAR AND MOVED IN WITH HER PARENTS. PT'S FIRST CHOICE FOR REHAB AND LONG-TERM CARE IS [facility], SECOND CHOICE IS THE [facility]. PT WILL NOT CONSIDER [facility] AGAIN. CHOICE COMPLETED AND SIGNED. IMPORTANT MESSAGE FROM MEDICARE PROVIDED AND DISCUSSED. PT REPORTS THE LAST DONA THAT WAS DONE THEY HAD TO DO A LEVEL 2 SCREENING. CM CALLED [facility], , LEFT MESSAGE ASKING FOR RETURN CALL. CM FAXED REFERRAL TO [facility] AT [phone]. CM FAXED COMPLETED DONA SCREENING AND SUPPORTING DOCUMENTS TO [facility] AT [phone]. CM WAITING ADMISSION DETERMINATION FROM [facility] AND DONA SCREENING COMPLETION. Brock Chavez, CASE MANAGEMENT Appended by Brokc Chavez on 02/17/2018 9:57 HUMAN SERVICES PROGRAM SPECIALIST: CM RECEIVED CALL FROM [facility], , WHO INSTRUCTED CM TO SEND THE REFERRAL AND THEIR DOCTOR AND DIRECTOR WILL LOOK AT IT TO MAKE ADMISSION DETERMINATION. REFERRAL PREVIOUSLY FAXED TODAY TO [facility] AT [phone]. CM WAITING ADMISSION DETERMINATION FROM [facility] AND DONA SCREENING COMPLETION. Brock Chavez, CASE MANAGEMENT Appended by Brock Chavez on 02/17/2018 15:44 HUMAN SERVICES PROGRAM SPECIALIST: CM RECEIVED DONA SCREENING RESPONSE, PT WILL REQUIRE LEVEL 2 SCREENING WHICH MAY TAKE UP TO 9 (NINE) BUSINESS DAYS TO COMPLETE. CM FAXED DONA DETERMINATION REQUIRING LEVEL 2 SCREEN TO [facility] AT [phone]. CM WAITING ADMISSION DETERMINATION FROM [facility] AND DONA LEVEL 2 SCREENING COMPLETION WHICH CAN TAKE UP TO 9 (NINE) BUSINESS DAYS. Brock Kila, CASE MANAGEMENT DCP- Discharge Planning Updated by [id number]: Misti Mccann on 02/12/18 5:[address] Patient Name: CHRISTINE NGUYEN Admission Status: ER Accout number: [id number] Admission Date: 02-11-2018 : 1975 Admission Diagnosis: Attending: DREW DUMONT Current LOS: 1 Anticipated DC Date: Planned Disposition: Mcfp Facility Primary Insurance: MEDICARE A & B Discharge Planning Comments: CM spoke with patient at bedside. Patient states she knows she can't return to her home. She is totally dependent of all her ADLs she is can feed herself but that is about all. [facility] has been notified of case. Patient is requesting to discharge to [facility]. CM will contact [facility]. CM will fax records to [facility] for possible placement when stable. CM will continue to follow and assist with discharge planning / needs. Dispensing Optician: Misti Mccann DCPIA - Discharge Planning Initial Assessment Updated by [id number]: Misti Mccann on 02/12/18 6:12 pm * Is the patient Alert and Oriented? Yes * PCP Dr. bueno * Pharmacy [facility] or [facility] * Preadmission Environment Home with Family * ADLs Total Dependent * Equipment Wheelchair * List name and contact numbers for known caregivers / representatives who currently or will assist patient after discharge: Meggan lorenzana [phone] * Verbal permission to speak to the caregivers and representatives has been obtained from the patient. N/A * Community resources currently utilized None * Additional services required to return to the preadmission environment? Yes * Can the patient safely return to the preadmission environment? No * Has this patient been hospitalized within the prior 30 days at any hospital? No External Providers External Provider: [facility] Next Contact Date: 02/19/2018 Service Request Date: Service Type: Resolution: Reviewer: Comments: Coverage Notice Reviewer: [id number] - Brock Chavez Notice Issued Date-Time: 02/19/2018 9:30 Notice Type: Patient Choice Letter Notice Delivered To: Patient Relationship to Patient: Candy Depositing Machine Operator Name: Delivery Method: HAND - Hand Delivered Lashonda Days: Prior Verbal Notification: Recipient Understood Notice: Yes Recipient Signature: Yes Med Rec Note Co-signed by Attending: Coverage Notice Comment: ANY [place] NUSING [facility] EXCEPT: [facility]. Reviewer: [id number] Sukumar Chavez Notice Issued Date-Time: 02/17/2018 8:10 Notice Type: Patient Choice Letter Notice Delivered To: Patient Relationship to Patient: Candy Depositing Machine Operator Name: Delivery Method: HAND - Hand Delivered Lashonda Days: Prior Verbal Notification: Recipient Understood Notice: Yes Recipient Signature: Yes Med Rec Note Co-signed by Attending: Coverage Notice Comment: 1- [facility] / 2- [facility] Reviewer: [id number] Sukumar Chavez Notice Issued Date-Time: 02/17/2018 8:10 Notice Type: IM Discharge Notice Notice Delivered To: Patient Relationship to Patient: Candy Depositing Machine Operator Name: Delivery Method: HAND - Hand Delivered Lashonda Days: Prior Verbal Notification: Recipient Understood Notice: Yes Recipient Signature: Yes Med Rec Note Co-signed by Attending: Coverage Notice Comment: Last DP export: 02/26/18 11:37 am Patient Name: CHRISTINE NGUYEN Page [id number] at 1247 All edits/amendments must be made on the electronic document DICTATION DATE: 02/26/18 1246 VOLLEYBALL ASSISTANT COACH: KAYODE 02/26/18 1246 RPT#: [id number] DC DATE: STATUS: ADM IN [facility] [address] [place] [address] END OF REPORT
[2018-02-26 13:05] VITALS: BP 96/64
--- NOTE | 2018-02-26 13:09 | MORECARE ---
CASE MANAGEMENT DISCHARGE SUMMARY PATIENT: CHRISTINE NGUYEN UNIT: [id number] ADM DATE: 02/11/18 AGE: 42 : [birth year] SEX: F ROOM/BED: D.1470 AUTHOR: ABBEY ALVA PHYSICIAN: REFERRING PHYSICIAN: DREW DUMONT MD DATE OF SERVICE: 02/26/18 Discharge Plan Patient Name: CHRISTINE NGUYEN Facility: [facility]:[place] : 1975 Planned Disposition: Jail Facility Anticipated Discharge Date: 02/26/18 Discharge Date: Expected LOS: 15 Initial Reviewer: [id number] Initial Review Date: 02/12/2018 Generated: 02/26/18 2:09 pm Comments DCP- Discharge Planning Updated by [id number]: Brock Chavez on 02/26/18 12:[address] Patient Name: CHRISTINE NGUYEN Encounter No: [id number] : 1975 Primary Insurance: MEDICARE A & B Anticipated DC Date: 02-26-2018 Planned Disposition: Jail Facility External Planned Provider: [facility], MEDICARE REHAB BED DCP follow-up note: CM RECEIVED DONA RESPONSE, PT IS CLEARED TO ENTER [facility]. CM CALLED [facility], , NOTIFIED OF DONA CLEARANCE AND REQUESTED ADMISSION DETERMINATION. CM FAXED DONA CLEARANCE LETTER AND UPDATE TO [facility] AT [phone]. CM NOTIFIED PT, PROVIDED AND EXPLAINED IMPORTANT MESSAGE FROM MEDICARE. PT HAS BEEN DECLINED FOR LONG-TERM CARE AT [facility], [facility], [facility], [facility], [facility] AND [facility]. DONA SCREENING COMPLETED AND CLEARED FOR [facility] FACILITY ENTRY.CM WAITING ADMISSION DETERMINATION FROM [facility] WHO IS WORKING ON MEDICAID FOR LONG-TERM CARE. TERRA Amato DCP- Discharge Planning Updated by [id number]: Brock Chavez on 02/24/18 10:[address] Patient Name: CHRISTINE NGUYEN Encounter No: [id number] : 1975 Primary Insurance: MEDICARE A & B Anticipated DC Date: Planned Disposition: Jail Facility External Planned Provider: [facility], MEDICARE REHAB BED DCP follow-up note: CM RECEIVED CALL FROM [facility], THEY WILL VISIT WITH PT IN HOSPITAL TODAY TO ASSESS PT FOR ADMISSION. CM HAS NOT YET RECEIVED LEVEL 2 DONA DETERMINATION. PT HAS BEEN DECLINED FOR CUSHION FILLER CARE AT [facility], [facility], [facility], [facility] AND [facility]. CM WAITING ADMISSION DETERMINATION FROM [facility]. CM WAITING LEVEL 2 DONA SCREENING COMPLETION AND DETERMINATION. Brock Chavez, CASE MANAGEMENT DCP- Discharge Planning Updated by [id number]: Brock Chavez on 02/22/18 2:[address] Patient Name: CHRISTINE NGUYEN Encounter No: [id number] : 1975 Primary Insurance: MEDICARE A & B Anticipated DC Date: Planned Disposition: Jail Facility External Planned Provider: FIRST ACCEPTING FACILITY DCP follow-up note: CM RECEIVED CALL FROM CHETNA, PT'S STEP FATHER WHO REPORTS HE CALLED [facility] AND THEY TOLD HIM THE REASON THEY CANNOT ACCEPT IS THAT PT'S [place] CARE MEDICAID WAS INACTIVE AND CM NEEDED TO FILE FOR [place] CARE MEDICAID. CM EXPLAINED THAT THERE ARE OTHER FACTORS USED IN MAKING THEIR DECISION AND THAT THE [facility], NOT CM, APPLIES FOR [place] CARE MEDICAID. CHETNA STATES HE AND PT WANT HER TO GO TO [facility]; CM EXPLAINED THAT THE FACILITY HAD SAID NO; CHETNA ASKED FOR CM TO CALL THEM BACK AND HE WILL DO THE SAME. CM CALLED MARIXA OF [facility], , LEFT DETAILED MESSAGE ASKING FOR RETURN CALL. CM RECEIVED CALL FROM [facility] WILL VISIT WITH AND ASSESS PT FOR LEVEL 2 DONA SCREENING TODAY AFTER NOON. PT HAS BEEN DECLINED FOR LONG-TERM CARE FROM [facility], [facility] AND [facility]. CM WAITING ADMISSION DETERMINATIONS FROM [facility], [facility] AND [facility]. CM WAITING LEVEL 2 DONA SCREENING COMPLETION AND DETERMINATION. Brock Chavez, CASE MANAGEMENT Appended by Brock Chavez on 02/22/2018 15:16 MANAGER OF ORGANIZATIONAL DEVELOPMENT: CM SPOKE TO [facility], THEY WILL NOT ACCEPT PT. CM SPOKE TO SRINIVAS OF [facility], THEY CANNOT MEET PT'S NEEDS. CM SPOKE TO NATHALIE OF [facility], THEY CANNOT TAKE PT. CM CALLED AND SPOKE TO [facility] WHO INFORMED CM THEY ARE STILL CONSIDERING PT FOR PLACEMENT AND WILL VISIT WITH PT ON 02-24-18. PT NOTIFIED OF ABOVE; PT CONTINUES TO DECLINE REFERRAL TO [facility] AND UNDERSTANDS IF [facility] DECLINES, CM WILL HAVE TO SEND REFERRAL OUTSIDE OF [place] FOR PLACEMENT CONSIDERATION. PT HAS BEEN DECLINED FOR LONG-TERM CARE AT [facility], [facility], [facility], [facility], [facility] CM WAITING ADMISSION DETERMINATION FROM [facility]. CM WAITING LEVEL 2 DONA SCREENING COMPLETION AND DETERMINATION. Brock Chavez CASE MANAGEMENT DCP- Discharge Planning Updated by [id number]: Brock Chavez on 02/19/18 3:[address] Patient Name: CHRISTINE NGUYEN Encounter No: [id number] : 1975 Primary Insurance: MEDICARE A & B Anticipated DC Date: Planned Disposition: Jail Facility External Planned Provider: ANY ACCEPTING [facility], MEDICARE REHAB BED DCP follow-up note: CM RECEIVED CALL FROM MARIXA OF [facility], THEY WILL NOT ACCEPT DUE TO FINANCIAL CONCERNS. CM SPOKE TO DR. DMUONT AND PROVIDED UPDATE. CM SPOKE TO PT IN ROOM WHO WAS UPSET STATING SHE PAID THEM THE MONEY THAT WAS OWED AND THE ONLY [facility] SHE OWES MONEY TO IS [facility] WHICH SHE OWES $21,000. CM DISCUSSED NURSING FACILITY OPTIONS IN [place], PT ASKED THAT REFERRALS BE SENT TO ALL LOCAL NURSING HOMES EXCEPT [facility] AND [facility]. CHOICE LETTER COMPLETED. CM FAXED REFERRALS TO [facility], [facility], [facility], [facility]. CM WAITING ADMISSION DETERMINATIONS FROM [facility], [facility], [facility], [facility]. CM WAITING LEVEL 2 DONA SCREENING COMPLETION AND DETERMINATION. Brock Chavez, CASE MANAGEMENT Appended by Brock Chavez on 02/19/2018 16:07 MANAGER OF ORGANIZATIONAL DEVELOPMENT: CM RECEIVED CALL FROM PT WHO REPORTS THAT HER FATHER CALLED [facility] WHO INFORMED HIM THAT HER MEDICAID WAS INACTIVE. CM CALLED EDWIN OF [facility] [place] WHO CONFIRMED PT HAD LONG-TERM CARE MEDICAID THAT ENDED. EDWIN INFORMED CM THAT THE [facility] WILL NEED TO REAPPLY FOR LONG-TERM CARE MEDICAID, SHE IS NOT ABLE TO DO THAT APPLICATION. PT NOTIFIED. CM RECEIVED CALL FROM [facility] WHO DECLINED PT. PT HAS BEEN DECLINED FOR LONG-TERM CARE FROM [facility] AND [facility]. CM WAITING ADMISSION DETERMINATIONS FROM [facility], [facility] AND [facility]. CM WAITING LEVEL 2 DONA SCREENING COMPLETION AND DETERMINATION. Brock Chavez, CASE MANAGEMENT Appended by Brock Chavez on 02/19/2018 16:55 MANAGER OF ORGANIZATIONAL DEVELOPMENT: CM RECEIVED MESSAGE FROM AISHA [facility], PT HAS BEEN DECLINED. PT HAS BEEN DECLINED FOR LONG-TERM CARE FROM [facility] AND [facility]. CM WAITING ADMISSION DETERMINATIONS FROM [facility], [facility] AND [facility]. CM WAITING LEVEL 2 DONA SCREENING COMPLETION AND DETERMINATION. Brock Chavez, CASE MANAGEMENT DCP- Discharge Planning Updated by [id number]: Brock Chavez on 02/17/18 2:[address] Patient Name: CHRISTINE NGUYEN Encounter No: [id number] : 1975 Primary Insurance: MEDICARE A & B Anticipated DC Date: Planned Disposition: Jail Facility External Planned Provider: [facility], MEDICARE REHAB BED DCP follow-up note: CM COMPLETED DONA THAT CM STARTED ON 02-15-18, DOCTOR AND PT SIGNATURES WERE OBTAINED. CM MET WITH PT IN ROOM TO DISCUSS DISCHARGE PLANNING AND NEEDS. PT REPORTS SHE IS NOT ABLE TO CARE FOR HERSELF AND HER PARENTS, WHOM SHE WAS LIVING WITH, ARE NOT ABLE TO EITHER. PT WOULD LIKE PLACMENT AT [facility]. PT HAS TALKED TO MYLA [facility] WHO TOLD HER THAT IT DEPENDS ON IF THE DOCTOR WILL TAKE HER BACK THERE OR NOT. PT REPORTS SHE HAS BEEN TO [facility], [facility] AND [facility] FOR REHAB AND LONG-TERM CARE IN THE PAST. PT LEFT THE [facility] IN FEBRUARY OR MARCH OF THIS YEAR AND MOVED IN WITH HER PARENTS. PT'S FIRST CHOICE FOR REHAB AND LONG-TERM CARE IS [facility], SECOND CHOICE IS THE [facility]. PT WILL NOT CONSIDER [facility] AGAIN. CHOICE COMPLETED AND SIGNED. IMPORTANT MESSAGE FROM MEDICARE PROVIDED AND DISCUSSED. PT REPORTS THE LAST DONA THAT WAS DONE THEY HAD TO DO A LEVEL 2 SCREENING. CM CALLED MARIXA [facility], , LEFT MESSAGE ASKING FOR RETURN CALL. CM FAXED REFERRAL TO [facility] AT [phone]. CM FAXED COMPLETED DONA SCREENING AND SUPPORTING DOCUMENTS TO [facility] AT [phone]. CM WAITING ADMISSION DETERMINATION FROM [facility] AND DONA SCREENING COMPLETION. Brock Chavez, CASE MANAGEMENT Appended by Brock Chavez on 02/17/2018 9:57 MANAGER OF ORGANIZATIONAL DEVELOPMENT: CM RECEIVED CALL FROM MARIXA OF [facility], , WHO INSTRUCTED CM TO SEND THE REFERRAL AND THEIR DOCTOR AND DIRECTOR WILL LOOK AT IT TO MAKE ADMISSION DETERMINATION. REFERRAL PREVIOUSLY FAXED TODAY TO [facility] AT [phone]. CM WAITING ADMISSION DETERMINATION FROM [facility] AND DONA SCREENING COMPLETION. Brock Chavez, CASE MANAGEMENT Appended by Brock Chavez on 02/17/2018 15:44 MANAGER OF ORGANIZATIONAL DEVELOPMENT: CM RECEIVED DONA SCREENING RESPONSE, PT WILL REQUIRE LEVEL 2 SCREENING WHICH MAY TAKE UP TO 9 (NINE) BUSINESS DAYS TO COMPLETE. CM FAXED DONA DETERMINATION REQUIRING LEVEL 2 SCREEN TO [facility] AT [phone]. CM WAITING ADMISSION DETERMINATION FROM [facility] AND DONA LEVEL 2 SCREENING COMPLETION WHICH CAN TAKE UP TO 9 (NINE) BUSINESS DAYS. Brock Chavez, CASE MANAGEMENT DCP- Discharge Planning Updated by [id number]: Misti Mccann on 02/12/18 5:[address] Patient Name: CHRISTINE NGUYEN Admission Status: ER Accout number: [id number] Admission Date: 02-11-2018 : 1975 Admission Diagnosis: Attending: DREW DUMONT Current LOS: 1 Anticipated DC Date: Planned Disposition: Jail Facility Primary Insurance: MEDICARE A & B Discharge Planning Comments: CM spoke with patient at bedside. Patient states she knows she can't return to her home. She is totally dependent of all her ADLs she is can feed herself but that is about all. APS has been notified of case. Patient is requesting to discharge to [facility]. CM will contact [facility]. CM will fax records to [facility] for possible placement when stable. CM will continue to follow and assist with discharge planning / needs. Trading Manager: Misti Mccann DCPIA - Discharge Planning Initial Assessment Updated by [id number]: Misti Mccann on 02/12/18 6:12 pm * Is the patient Alert and Oriented? Yes * PCP Dr. bueno * Pharmacy [facility] * Preadmission Environment Home with Family * ADLs Total Dependent * Equipment Wheelchair * List name and contact numbers for known caregivers / representatives who currently or will assist patient after discharge: Meggan lorenzana [phone] * Verbal permission to speak to the caregivers and representatives has been obtained from the patient. N/A * Community resources currently utilized None * Additional services required to return to the preadmission environment? Yes * Can the patient safely return to the preadmission environment? No * Has this patient been hospitalized within the prior 30 days at any hospital? No Coverage Notice Reviewer: [id number] Chavez Notice Issued Date-Time: 02/19/2018 9:30 Notice Type: Patient Choice Letter Notice Delivered To: Patient Relationship to Patient: Plaster Foreman Name: Delivery Method: HAND - Hand Delivered Lashonda Days: Prior Verbal Notification: Recipient Understood Notice: Yes Recipient Signature: Yes Med Rec Note Co-signed by Attending: Coverage Notice Comment: ANY [facility] EXCEPT: [facility] OR [facility]. Reviewer: [id number] Chavez Notice Issued Date-Time: 02/17/2018 8:10 Notice Type: Patient Choice Letter Notice Delivered To: Patient Relationship to Patient: Plaster Foreman Name: Delivery Method: HAND - Hand Delivered Lashonda Days: Prior Verbal Notification: Recipient Understood Notice: Yes Recipient Signature: Yes Med Rec Note Co-signed by Attending: Coverage Notice Comment: 1- [facility] / 2- [facility] Reviewer: [id number] Chavez Notice Issued Date-Time: 02/17/2018 8:10 Notice Type: IM Discharge Notice Notice Delivered To: Patient Relationship to Patient: Plaster Foreman Name: Delivery Method: HAND - Hand Delivered Lashonda Days: Prior Verbal Notification: Recipient Understood Notice: Yes Recipient Signature: Yes Med Rec Note Co-signed by Attending: Coverage Notice Comment: Last DP export: 02/26/18 11:47 am Patient Name: CHRISTINE NGUYEN Page [id number] at 1309 All edits/amendments must be made on the electronic document DICTATION DATE: 02/26/18 1309 CENTRAL LAB TECHNICIAN: KAYODE 02/26/18 1309 RPT#: [id number] DC DATE: STATUS: ADM IN [facility] [address] [place] [address] END OF REPORT
--- NOTE | 2018-02-26 14:03 | NUR ---
RESTING QUIETLY. WILL CONTINUE TO MONITOR.
--- NOTE | 2018-02-26 19:30 | NUR ---
RESUME CARE. PT IN BED A&0 NO C/O OF PAIN DISTRESS AT THIS TIME CALL LIGHT IN REACH WILL CONT TO SOMMER
[2018-02-26 21:08] VITALS: BP 84/65
--- NOTE | 2018-02-27 02:57 | NUR ---
RESTING WITH EYES CLOSED. RR EVEN U/L. NO S/S OF DISCOMFORT. CL IN REACH.
[2018-02-27 09:01] VITALS: BP 87/60
--- NOTE | 2018-02-27 10:05 | NUR ---
PATIENT IS ALERT/ORIENT. CALL LIGHT WITHIN REACH. VOICES NO NEEDS AT THIS TIME. WITH CONTINUE WITH PLAN OF CARE
--- NOTE | 2018-02-27 10:13 | NUR ---
RESTS IN BED WITHOUT NEEDS VOICED. IV PATENT. CALL LIGHT IN REACH. WILL MONITOR.
[2018-02-27 14:03] VITALS: BP 90/65
[2018-02-27 17:44] VITALS: BP 111/67
--- NOTE | 2018-02-27 19:21 | NUR ---
RECIEVED UP IN BED WITH EYES OPEN AND TV ON. C/O BEING WET AND REQUESTING A BEDPAN. PLACED ON BEDPAN AND BLUE PAD REMOVED. LEFT SIDE FLACCID AND UNABLE TO ASSIST WITH TURN. DENIES ANY OTHER NEEDS AT THIS TIME. WILL CONT. POC.
[2018-02-27 20:23] VITALS: BP 103/64
[2018-02-28 01:46] VITALS: BP 100/63
--- NOTE | 2018-02-28 04:06 | NUR ---
RESTING IN BED WITH EYES CLOSED AT THIS TIME. NO S/S OF DISTRESS OBSERVED. NS INFUSING AT 75CC/HR. WILL CONT. POC.
[2018-02-28 05:34] VITALS: BP 103/60
--- NOTE | 2018-02-28 08:01 | NUR ---
PATIENT IS ALERT/ORIENT. CALL LIGHT WITHIN REACH. VOICES NO NEEDS AT THIS TIME. WILL CONTINUE WITH PLAN OF CARE
--- NOTE | 2018-02-28 08:04 | NUR ---
RESTS IN BED WITH EYES CLOSED. CALL LIGHT IN REACH. WILL MONITOR NEEDS.
[2018-02-28 08:31] VITALS: BP 88/49
--- NOTE | 2018-02-28 10:08 | NUR ---
DR. DUMONT INTO SEE PATIENT. SEE RICARDO MEDINA
--- NOTE | 2018-02-28 11:15 | NUR ---
PRN XANAX GIVEN FOR ANXIEY PER PATIENT REQUEST
[2018-02-28 11:56] VITALS: BP 107/57
[2018-02-28 15:35] VITALS: BP 95/65
--- NOTE | 2018-02-28 19:12 | NUR ---
RECIEVED RSTING IN BED WITH EYES CLOSED. NO S/S OF DISTRESS OBSERVED. EASILY AROUSES WITH VERBAL STIMULI. ORIENTED X4. IV TO RIGHT FA WITH NS @ 75. NO REDNESS OR SWELLING TO SITE. DSG INTACT. DENIES ANY NEEDS AT THIS TIME. WILL CONT. POC.
[2018-02-28 20:00] VITALS: BP 105/62
[2018-03-01] VITALS: BP 87/56
[2018-03-01 04:00] VITALS: BP 97/58
--- NOTE | 2018-03-01 07:00 | NUR ---
RECIEVED PATIENT RESTING IN BED, AWAKE AND ALERT. PATIENT REPORTS SHE DID NOT SLEEP WELL LAST NIGHT. NURSING REPORT DID NOT INCLUDE THE PATIENT ON ELECTROLYTE PROTOCOL. LABS NOT COLLECTED/NO RESULTS. LABS ORDERED PER PROTOCOL. WILL CONT TO MONITOR.
[2018-03-01 08:37] VITALS: BP 104/65
--- NOTE | 2018-03-01 11:10 | NUR ---
LABS RESULTED, THE PATIENTS MAG LEVEL IS BELOW PARAMETERS, WILL TREAT ORDERED IN PROTOCOL.
[2018-03-01 11:28] LABS: MAGNESIUM - SERUM 1.4 mg/dL (1.8-2.4); PHOSPHOROUS 4.6 mg/dL (2.5-4.9); POTASSIUM - SERUM 3.5 mmol/L (3.5-5.1)
[2018-03-01 11:56] VITALS: BP 108/60
[2018-03-01 15:20] VITALS: BP 98/63
--- NOTE | 2018-03-01 16:29 | MORECARE ---
CASE MANAGEMENT DISCHARGE SUMMARY PATIENT: CHRISTINE NGUYEN UNIT: [id number] ADM DATE: 02/11/18 AGE: 42 : [birth year] SEX: F ROOM/BED: D.8440 AUTHOR: ABBEY ALVA PHYSICIAN: REFERRING PHYSICIAN: DREW DUMONT MD DATE OF SERVICE: 03/01/18 Discharge Plan Patient Name: CHRISTINE NGUYEN Facility: [facility]:[place] : 1975 Planned Disposition: Alf Facility Anticipated Discharge Date: 02/26/18 Discharge Date: Expected LOS: 15 Initial Reviewer: [id number] Initial Review Date: 02/12/2018 Generated: 03/01/18 5:29 pm Comments DCP- Discharge Planning Updated by [id number]: Brock Chavez on 03/01/18 3:[address] Patient Name: CHRISTINE NGUYEN Encounter No: [id number] : 1975 Primary Insurance: MEDICARE A & B Anticipated DC Date: 02-26-2018 Planned Disposition: Alf Facility External Planned Provider:[facility], MEDICARE REHAB BED DCP follow-up note: CM FAXED UPDATE TO [facility] AT [phone]. CM NOTIFIED PT. PT HAS BEEN DECLINED FOR AIRSET CASTER CARE AT [facility], [facility] [place], [facility], [facility] AND [facility]. DONA SCREENING COMPLETED AND CLEARED FOR [facility] FACILITY ENTRY.CM WAITING ADMISSION DETERMINATION FROM [facility] WHO IS WORKING ON MEDICAID FOR AIRSET CASTER CARE. Brock Chavez, CASE MANAGEMENT DCP- Discharge Planning Updated by [id number]: Brock Chavez on 02/26/18 12:[address] Patient Name: CHRISTINE NGUYEN Encounter No: [id number] : 1975 Primary Insurance: MEDICARE A & B Anticipated DC Date: 02-26-2018 Planned Disposition: Alf Facility External Planned Provider: [facility], MEDICARE REHAB BED DCP follow-up note: CM RECEIVED [facility] RESPONSE, PT IS CLEARED TO ENTER [facility] BY [facility]. CM CALLED SELVIN OF [facility], , NOTIFIED OF [facility] CLEARANCE AND REQUESTED ADMISSION DETERMINATION. CM FAXED [facility] CLEARANCE LETTER AND UPDATE TO [facility] AT [phone]. CM NOTIFIED PT, PROVIDED AND EXPLAINED IMPORTANT MESSAGE FROM MEDICARE. PT HAS BEEN DECLINED FOR AIRSET CASTER CARE AT [facility], [facility], [facility]. DONA SCREENING COMPLETED AND CLEARED FOR [facility] FACILITY ENTRY.CM WAITING ADMISSION DETERMINATION FROM [facility] WHO IS WORKING ON MEDICAID FOR [facility] CARE. Brock Chavez CASE MANAGEMENT DCP- Discharge Planning Updated by [id number]: Brock Chavez on 02/24/18 10:[address] Patient Name: CHRISTINE NGUYEN Encounter No: [id number] : 1975 Primary Insurance: MEDICARE A & B Anticipated DC Date: Planned Disposition: Alf Facility External Planned Provider: [facility] DCP follow-up note: CM RECEIVED CALL FROM [facility], THEY WILL VISIT WITH PT IN HOSPITAL TODAY TO ASSESS PT FOR ADMISSION. CM HAS NOT YET RECEIVED LEVEL 2 [facility] DETERMINATION. PT HAS BEEN DECLINED FOR AIRSET CASTER CARE AT [facility], [facility], [facility]. CM WAITING ADMISSION DETERMINATION FROM [facility]. CM WAITING LEVEL 2 [facility] SCREENING COMPLETION AND DETERMINATION. TERRA Amato DCP- Discharge Planning Updated by [id number]: Brock Chavez on 02/22/18 2:[address] Patient Name: CHRISTINE NGUYEN Encounter No: [id number] : 1975 Primary Insurance: MEDICARE A & B Anticipated DC Date: Planned Disposition: Alf Facility External Planned Provider: FIRST ACCEPTING FACILITY DCP follow-up note: CM RECEIVED CALL FROM CHETNA PT'S STEP FATHER WHO REPORTS HE CALLED [facility] AND THEY TOLD HIM THE REASON THEY CANNOT ACCEPT IS THAT PT'S AIRSET CASTER CARE MEDICAID WAS INACTIVE AND CM NEEDED TO FILE FOR [facility] CARE MEDICAID. CM EXPLAINED THAT THERE ARE OTHER FACTORS USED IN MAKING THEIR DECISION AND THAT THE [facility], NOT CM, APPLIES FOR AIRSET CASTER CARE MEDICAID. CHETNA STATES HE AND PT WANT HER TO GO TO [facility]; CM EXPLAINED THAT THE FACILITY HAD SAID NO; CHETNA ASKED FOR CM TO CALL THEM BACK AND HE WILL DO THE SAME. CM CALLED [facility], , LEFT DETAILED MESSAGE ASKING FOR RETURN CALL. CM RECEIVED CALL FROM CRISTAL [facility]AN [facility], SHE WILL VISIT WITH AND ASSESS PT FOR LEVEL 2 DONA SCREENING TODAY AFTER NOON. PT HAS BEEN DECLINED FOR [facility] CARE FROM [facility], [facility] AND [facility]. CM WAITING ADMISSION DETERMINATIONS FROM [facility], [facility] AND [facility]. CM WAITING LEVEL 2 DONA SCREENING COMPLETION AND DETERMINATION. Brock Chavez, CASE MANAGEMENT Appended by Brock Chavez on 02/22/2018 15:16 SUPERINTENDENT METER TESTS: CM SPOKE TO DOROTHEA OF [facility], THEY WILL NOT ACCEPT PT. CM SPOKE TO [facility], THEY CANNOT MEET PT'S NEEDS. CM SPOKE TO NATHALIE OF [facility], THEY CANNOT TAKE PT. CM CALLED AND SPOKE TO DAVY [facility] WHO INFORMED CM THEY ARE STILL CONSIDERING PT FOR PLACEMENT AND WILL VISIT WITH PT ON 02-24-18. PT NOTIFIED OF ABOVE; PT CONTINUES TO DECLINE REFERRAL TO [facility] AND UNDERSTANDS IF [facility] DECLINES, CM WILL HAVE TO SEND REFERRAL OUTSIDE OF [place] FOR PLACEMENT CONSIDERATION. PT HAS BEEN DECLINED FOR AIRSET CASTER CARE AT [facility], [facility], [facility], [facility], [facility], [facility] AND [facility]. CM WAITING ADMISSION DETERMINATION FROM [facility]. CM WAITING LEVEL 2 DONA SCREENING COMPLETION AND DETERMINATION. Brock Chavez, CASE MANAGEMENT DCP- Discharge Planning Updated by [id number]: Brock Chavez on 02/19/18 3:[address] Patient Name: CHRISTINE NGUYEN Encounter No: [id number] : 1975 Primary Insurance: MEDICARE A & B Anticipated DC Date: Planned Disposition: Alf Facility External Planned Provider: ANY ACCEPTING [place] [facility], MEDICARE REHAB BED DCP follow-up note: CM RECEIVED CALL FROM [facility], THEY WILL NOT ACCEPT DUE TO FINANCIAL CONCERNS. CM SPOKE TO DR. DUMONT AND PROVIDED UPDATE. CM SPOKE TO PT IN ROOM WHO WAS UPSET STATING SHE PAID THEM THE MONEY THAT WAS OWED AND THE ONLY [facility]CC SHE OWES MONEY TO IS [facility] WHICH SHE OWES $21,000. CM DISCUSSED NURSING FACILITY OPTIONS IN [place], PT ASKED THAT REFERRALS BE SENT TO ALL LOCAL NURSING HOMES EXCEPT [facility] AND [facility]. CHOICE LETTER COMPLETED. CM FAXED REFERRALS TO [facility], [facility] AND [facility]. CM WAITING ADMISSION DETERMINATIONS FROM [facility], [facility], [facility] AND [facility]. CM WAITING LEVEL 2 DONA SCREENING COMPLETION AND DETERMINATION. Brock Chavez, CASE MANAGEMENT Appended by Brock Chavez on 02/19/2018 16:07 SUPERINTENDENT METER TESTS: CM RECEIVED CALL FROM PT WHO REPORTS THAT HER FATHER CALLED [facility] WHO INFORMED HIM THAT HER MEDICAID WAS INACTIVE. CM CALLED EDWIN OF [facility] AT [place] WHO CONFIRMED PT HAD AIRSET CASTER CARE MEDICAID THAT ENDED. EDWIN INFORMED CM THAT THE [facility] WILL NEED TO REAPPLY FOR AIRSET CASTER CARE MEDICAID, SHE IS NOT ABLE TO DO THAT APPLICATION. PT NOTIFIED. CM RECEIVED CALL FROM [facility] WHO DECLINED PT. PT HAS BEEN DECLINED FOR AIRSET CASTER CARE FROM [facility]. CM WAITING ADMISSION DETERMINATIONS FROM [facility], [facility] AND [facility]. CM WAITING LEVEL 2 DONA SCREENING COMPLETION AND DETERMINATION. Brock Chavez CASE MANAGEMENT Appended by Brock Chavez on 02/19/2018 16:55 SUPERINTENDENT METER TESTS: CM RECEIVED MESSAGE FROM [facility], PT HAS BEEN DECLINED. PT HAS BEEN DECLINED FOR [facility] CARE FROM [facility] AND [facility]. CM WAITING ADMISSION DETERMINATIONS FROM [facility] AND [facility]. CM WAITING LEVEL 2 DONA SCREENING COMPLETION AND DETERMINATION. TERRA Amato MANAGEMENT DCP- Discharge Planning Updated by [id number]: Brock Chavez on 02/17/18 2:[address] Patient Name: CHRISITNE NGUYEN Encounter No: [id number] : 1975 Primary Insurance: MEDICARE A & B Anticipated DC Date: Planned Disposition: Alf Facility External Planned Provider: [facility], MEDICARE REHAB BED DCP follow-up note: CM COMPLETED DONA THAT CM STARTED ON 02-15-18, DOCTOR AND PT SIGNATURES WERE OBTAINED. CM MET WITH PT IN ROOM TO DISCUSS DISCHARGE PLANNING AND NEEDS. PT REPORTS SHE IS NOT ABLE TO CARE FOR HERSELF AND HER PARENTS, WHOM SHE WAS LIVING WITH, ARE NOT ABLE TO EITHER. PT WOULD LIKE PLACMENT AT [facility]. PT HAS TALKED TO [facility] WHO TOLD HER THAT IT DEPENDS ON IF THE DOCTOR WILL TAKE HER BACK THERE OR NOT. PT REPORTS SHE HAS BEEN TO [facility], [facility] AND [facility] FOR REHAB AND MCC CARE IN THE PAST. PT LEFT THE [facility] IN FEBRUARY OR MARCH OF THIS YEAR AND MOVED IN WITH HER PARENTS. PT'S FIRST CHOICE FOR REHAB AND AIRSET CASTER CARE IS [facility], SECOND CHOICE IS THE [facility]. PT WILL NOT CONSIDER [facility] AGAIN. CHOICE COMPLETED AND SIGNED. IMPORTANT MESSAGE FROM MEDICARE PROVIDED AND DISCUSSED. PT REPORTS THE LAST [facility]A THAT WAS DONE THEY HAD TO DO A LEVEL 2 SCREENING. CM CALLED [facility], , LEFT MESSAGE ASKING FOR RETURN CALL. CM FAXED REFERRAL TO [facility] AT [phone]. CM FAXED COMPLETED DONA SCREENING AND SUPPORTING DOCUMENTS TO [facility] AT [phone]. CM WAITING ADMISSION DETERMINATION FROM [facility] AND DONA SCREENING COMPLETION. Brock Chavez, CASE MANAGEMENT Appended by Brock Chavez on 02/17/2018 9:57 SUPERINTENDENT METER TESTS: CM RECEIVED CALL FROM [facility], , WHO INSTRUCTED CM TO SEND THE REFERRAL AND THEIR DOCTOR AND DIRECTOR WILL LOOK AT IT TO MAKE ADMISSION DETERMINATION. REFERRAL PREVIOUSLY FAXED TODAY TO [facility] AT [phone]. CM WAITING ADMISSION DETERMINATION FROM [facility] AND DONA SCREENING COMPLETION. Brock Chavez CASE MANAGEMENT Appended by Brock Chavez on 02/17/2018 15:44 SUPERINTENDENT METER TESTS: CM RECEIVED DONA SCREENING RESPONSE, PT WILL REQUIRE LEVEL 2 SCREENING WHICH MAY TAKE UP TO 9 (NINE) BUSINESS DAYS TO COMPLETE. CM FAXED DONA DETERMINATION REQUIRING LEVEL 2 SCREEN TO [facility] AT [phone]. CM WAITING ADMISSION DETERMINATION FROM [facility] AND [facility] LEVEL 2 SCREENING COMPLETION WHICH CAN TAKE UP TO 9 (NINE) BUSINESS DAYS. Brock Chavez CASE MANAGEMENT DCP- Discharge Planning Updated by [id number]: Misti Mccann on 02/12/18 5:[address] Patient Name: CHRISTINE NGUYEN Admission Status: ER Accout number: [id number] Admission Date: 02-11-2018 : 1975 Admission Diagnosis: Attending: DREW DUMONT Current LOS: 1 Anticipated DC Date: Planned Disposition: Alf Facility Primary Insurance: MEDICARE A & B Discharge Planning Comments: CM spoke with patient at bedside. Patient states she knows she can't return to her home. She is totally dependent of all her ADLs she is can feed herself but that is about all. [facility] has been notified of case. Patient is requesting to discharge to [facility]. CM will contact [facility]. CM will fax records to [facility] for possible placement when stable. CM will continue to follow and assist with discharge planning / needs. Gill Box Operator: Misti Mccann DCPIA - Discharge Planning Initial Assessment Updated by [id number]: Misti Mccann on 02/12/18 6:12 pm * Is the patient Alert and Oriented? Yes * PCP Dr. bueno * Pharmacy [facility] or [facility] * Preadmission Environment Home with Family * ADLs Total Dependent * Equipment Wheelchair * List name and contact numbers for known caregivers / representatives who currently or will assist patient after discharge: Meggan Carlson mother [phone] * Verbal permission to speak to the caregivers and representatives has been obtained from the patient. N/A * Community resources currently utilized None * Additional services required to return to the preadmission environment? Yes * Can the patient safely return to the preadmission environment? No * Has this patient been hospitalized within the prior 30 days at any hospital? No Coverage Notice Reviewer: [id number] Chavez Notice Issued Date-Time: 02/17/2018 8:10 Notice Type: IM Discharge Notice Notice Delivered To: Patient Relationship to Patient: Garden Consultant Name: Delivery Method: HAND - Hand Delivered Lashonda Days: Prior Verbal Notification: Recipient Understood Notice: Yes Recipient Signature: Yes Med Rec Note Co-signed by Attending: Coverage Notice Comment: Reviewer: [id number] Chavez Notice Issued Date-Time: 02/17/2018 8:10 Notice Type: Patient Choice Letter Notice Delivered To: Patient Relationship to Patient: Garden Consultant Name: Delivery Method: HAND - Hand Delivered Lashonda Days: Prior Verbal Notification: Recipient Understood Notice: Yes Recipient Signature: Yes Med Rec Note Co-signed by Attending: Coverage Notice Comment: 1- [facility] / 2- [facility] Reviewer: [id number] Chavez Notice Issued Date-Time: 02/19/2018 9:30 Notice Type: Patient Choice Letter Notice Delivered To: Patient Relationship to Patient: Garden Consultant Name: Delivery Method: HAND - Hand Delivered Lashonda Days: Prior Verbal Notification: Recipient Understood Notice: Yes Recipient Signature: Yes Med Rec Note Co-signed by Attending: Coverage Notice Comment: [facility] [place] [facility] EXCEPT: [place] [facility]. Reviewer: [id number] - Brock Chavez Notice Issued Date-Time: 02/26/2018 12:50 Notice Type: IM Discharge Notice Notice Delivered To: Patient Relationship to Patient: Garden Consultant Name: Delivery Method: HAND - Hand Delivered Lashonda Days: Prior Verbal Notification: Recipient Understood Notice: Yes Recipient Signature: Yes Med Rec Note Co-signed by Attending: Coverage Notice Comment: Last DP export: 02/26/18 12:09 pm Patient Name: CHRISTINE NGUYEN Page [id number] at 1629 All edits/amendments must be made on the electronic document DICTATION DATE: 03/01/181628 CARE AIDE: KAYODE 03/01/18 162 RPT#: [id number] DC DATE: STATUS: ADM IN [facility] [address] [place] [address] END OF REPORT
--- NOTE | 2018-03-01 18:09 | NUR ---
PATIENT INFORMED SHE IS BEING TRANSFERRED TO [facility]. INSTRUCTED TO TAKE PATIENT AND GIVE BEDSIDE REPORT. CATERPILLAR TRACTOR OPERATOR HAS PACKED UP PATIENTS PERSONAL BELONGINGS TO TRANSPORT TO NEW ROOM.
--- NOTE | 2018-03-01 18:34 | NUR ---
RECIEVE PATIENT FROM 2109. ALERT AND ORIENTED X4. DENIES ANY NEEDS. CONTINUE PLAN OF CARE AND SAFETY PRECAUTIONS.
[2018-03-01 19:30] VITALS: BP 95/56
--- NOTE | 2018-03-01 19:30 | NUR ---
ASSESSMENT PER FLOW SHEET, SALINE LOCK IN RIGHT FA INTACT WITH NO REDNESS OR EDEMA, PT REPORTS USING BED RENO WITH NO DIFFICULTY, BM TODAY AND PASSING FLATUS, PT REQUESTED AND SERVED DIET LEMON LITTLE SHELL TRIBE, DENIES FURTHER NEEDS, BED IN LOW POSITION, SIDE RAILS X 2, CALL LIGHT IN REACH
--- NOTE | 2018-03-01 19:43 | NUR ---
ADM TRAMADOL PER MD ORDERS FOR PAIN, SEE EMAR
[2018-03-01 20:09] LABS: MAGNESIUM - SERUM 1.7 mg/dL (1.8-2.4)
[2018-03-01 20:10] LABS: POTASSIUM - SERUM 4.1 mmol/L (3.5-5.1)
--- NOTE | 2018-03-01 20:30 | NUR ---
PT GARMENT SUPERVISOR LIGHT, PT PLACED ON BED, VOIDED WITH NO DIFFICULTY, PT REMOVED FROM BED RENO, DEVONTE CARE DONE, PT DENIES FURTHER NEEDS
--- NOTE | 2018-03-01 21:39 | NUR ---
OBTAINED FSBS, PT PLACED ON BEDPAN, VOIDED WITH NO DIFFICULTY, PT REMOVED FROM BEDPAN, DEVONTE CARE DONE, PT DENIES FURHTER NEEDS, BED IN LOW POSITION, SIDE RAILS X 2, CALL LIGHT IN REACH
--- NOTE | 2018-03-01 22:10 | NUR ---
MEDS RECEIVED FROM PHARMACY
--- NOTE | 2018-03-01 22:34 | NUR ---
ADM 2100 MEDS PER MD ORDERS, SEE EMAR, WAITING ON STORAGE ENGINEER TO BRING K-DUR, SNACK PROVIDED, DENIES FURTHER NEEDS
[2018-03-02] VITALS: BP 104/56
--- NOTE | 2018-03-02 00:11 | NUR ---
PT APPLIED BEHAVIOR SCIENCE SPECIALIST LIGHT, PT PLACED ON BEDPAN, VOIDED, DEVONTE CARE DONE, ADM K-DUR AND XANAX PER MD ORDERS, SEE EMAR, PT DENIES FURTHER NEEDS, BED IN LOW POSITION, SIDE RAILS X 2, CALL LIGHT IN REACH
--- NOTE | 2018-03-02 01:00 | NUR ---
PT RESTING WITH EYES CLOSED, RESP QUIET, NO DISTRESS NOTED, LEFT UNDISTURBED AT THIS TIME
--- NOTE | 2018-03-02 03:30 | NUR ---
PT AWAKE, PT REPORTS VOIDING ON SELF, PT CLEANED UP WITH WET WARM WASH CLOTHS, COMPLETE BEDDING CHANGED PER THIS RN AND MAMIE BABIN, SALINE LOCK CONVERTED TO IV, NS HUNG PER MD ORDERS, SEE EMAR, PT REQUESTED AND SERVED DIET COLA AND WATER, PT DENIES FURTHER NEEDS OR PAIN AT THIS TIME, BED IN LOW POSITION, SIDE RAILS X 2, CALL LIGHT IN REACH
[2018-03-02 04:00] VITALS: BP 104/59
--- NOTE | 2018-03-02 04:00 | NUR ---
VS OBTAINED PER MAMIE BABIN
--- NOTE | 2018-03-02 06:30 | NUR ---
PT AWAKE, OBTAINED FSBS, PT PLACED ON BED RENO, VOIDED LARGE [place], DEVONTE CARE DONE, BLUE CHUX CHANGED, OJ SERVED, PT DENIES FURTHER NEEDS, BED IN LOW POSITION, SIDE RAILS X 2, CALL LIGHT IN REACH
--- NOTE | 2018-03-02 08:38 | NUR ---
ALERT AND ORIENTED. NO DISTRESS NOTED. RESP EVEN AND UNLABORED. CL IN REACH.
[2018-03-02 08:40] LABS: BASOPHILS 1.1 % (0-2); EOSINOPHILS 2.5 % (0-7); HEMATOCRIT 38.7 % (36.0-48.0); HEMOGLOBIN 12.8 g/dL (12-16); IMMATURE GRANULOCYTES 0.3 % (0-5); LYMPHOCYTES 34.5 % (15-50); MCH 29.8 pg (26.0-34.0); MCHC 33.1 g/dL (31.0-37.0); MEAN PLATELET VOLUME 10.7 fL (7.4-10.4); MONOCYTES 4.1 % (2-11); NEUTROPHILS 57.5 % (40-80); PLATELET COUNT 356 10x3/uL (130-400); RDW 13.1 % (11.5-14.5); WBC 10.4 10x3/uL (4.8-10.8)
[2018-03-02 08:58] LABS: CALC OSMOLALITY 282 mosm/kg (275-300); CALCIUM 8.7 mg/dL (8.5-10.1); CARBON DIOXIDE 25.3 mmol/L (21.0-32.0); CHLORIDE - SERUM 104 mmol/L (98-107); CREATININE - SERUM 0.7 mg/dL (0.6-1.3); POTASSIUM - SERUM 3.7 mmol/L (3.5-5.1); SODIUM 141 mmol/L (136-145); UREA NITROGEN 12 mg/dL (7-18); eGFR NON AFRICAN AMERICAN > 90 mL/min (90-120)
[2018-03-02 09:00] LABS: GLUCOSE 134 mg/dL (74-106)
--- NOTE | 2018-03-02 11:24 | MORECARE ---
CASE MANAGEMENT DISCHARGE SUMMARY PATIENT: CHRISTINE NGUYEN UNIT: [id number] ADM DATE: 02/11/18 AGE: 42 : [birth year] SEX: F ROOM/BED: D.1222 AUTHOR: ABBEY ALVA PHYSICIAN: REFERRING PHYSICIAN: DREW DUMONT MD DATE OF SERVICE: 03/02/18 Discharge Plan Patient Name: CHRISTINE NGUYEN Facility: [facility]:[place] : 1975 Planned Disposition: Prison Facility Anticipated Discharge Date: 02/26/18 Discharge Date: Expected LOS: 15 Initial Reviewer: [id number] Initial Review Date: 02/12/2018 Generated: 03/02/18 12:24 pm Comments DCP- Discharge Planning Updated by [id number]: Brock Chavez on 03/02/18 10:[address] Patient Name: CHRISTINE NGUYEN Encounter No: [id number] : 1975 Primary Insurance: MEDICARE A & B Anticipated DC Date: 02-26-2018 Planned Disposition: Prison Facility External Planned Provider: [facility], MEDICARE REHAB BED DCP follow-up note: CM RECEIVED CALL FROM [facility] WHO ASKED FOR CM TO FAX DONA APPROVAL TO HER AND SHE WILL CHECK TO SEE IF PT'S BANK STATEMENTS HAVE BEEN RECEIVED BY FACILITY. CM FAXED DONA APPROVAL TO [facility] AT [phone]. PT HAS BEEN DECLINED FOR SPECIAL PROCEDURES TECH CARE AT [facility], [facility], [facility], [facility], [facility] AND [facility] DONA SCREENING COMPLETED AND CLEARED FOR JAIL FACILITY ENTRY.CM WAITING ADMISSION DETERMINATION FROM [facility] WHO IS WORKING ON MEDICAID FOR SPECIAL PROCEDURES TECH CARE, PT IS TO PROVIDE THREE MONTHS OF DETAILED BANK STATEMENTS. Brock Chavez CASE NOAH DCP- Discharge Planning Updated by [id number]: Brock Chavez on 03/01/18 3:[address] Patient Name: CHRISTINE NGUYEN Encounter No: [id number] : 1975 Primary Insurance: MEDICARE A & B Anticipated DC Date: 02-26-2018 Planned Disposition: Prison Facility External Planned Provider:[facility], MEDICARE REHAB BED DCP follow-up note: CM FAXED UPDATE TO [facility] AT [phone]. CM NOTIFIED PT. PT HAS BEEN DECLINED FOR SPECIAL PROCEDURES TECH CARE AT [facility]. DONA SCREENING COMPLETED AND CLEARED FOR JAIL FACILITY ENTRY.CM WAITING ADMISSION DETERMINATION FROM [facility] WHO IS WORKING ON MEDICAID FOR [facility]. Brock Chavez CASE NOAH DCP- Discharge Planning Updated by [id number]: Brock Chavez on 02/26/18 12:[address] Patient Name: CHRISTINE NGUYEN Encounter No: [id number] : 1975 Primary Insurance: MEDICARE A & B Anticipated DC Date: 02-26-2018 Planned Disposition: Prison Facility External Planned Provider: [facility], MEDICARE REHAB BED DCP follow-up note: CM RECEIVED DONA RESPONSE, PT IS CLEARED TO ENTER [facility]AIL BY [facility]. CM CALLED [facility], , NOTIFIED OF DONA CLEARANCE AND REQUESTED ADMISSION DETERMINATION. CM FAXED [facility] CLEARANCE LETTER AND UPDATE TO [facility] AT [phone]. CM NOTIFIED PT, PROVIDED AND EXPLAINED IMPORTANT MESSAGE FROM MEDICARE. PT HAS BEEN DECLINED FOR [facility] AT [facility]. DONA SCREENING COMPLETED AND CLEARED FOR JAIL FACILITY ENTRY.CM WAITING ADMISSION DETERMINATION FROM [facility] WHO IS WORKING ON MEDICAID FOR SPECIAL PROCEDURES TECH CARE. TERRA Amato DCP- Discharge Planning Updated by [id number]: Brock Chavez on 02/24/18 10:[address] Patient Name: CHRISTINE NGUYEN Encounter No: [id number] : 1975 Primary Insurance: MEDICARE A & B Anticipated DC Date: Planned Disposition: Prison Facility External Planned Provider: [facility], MEDICARE REHAB BED DCP follow-up note: CM RECEIVED CALL FROM [facility], THEY WILL VISIT WITH PT IN HOSPITAL TODAY TO ASSESS PT FOR ADMISSION. CM HAS NOT YET RECEIVED LEVEL 2 [facility] DETERMINATION. PT HAS BEEN DECLINED FOR SPECIAL PROCEDURES TECH CARE AT [facility], [facility]. CM WAITING ADMISSION DETERMINATION FROM [facility]. CM WAITING LEVEL 2 [facility] SCREENING COMPLETION AND DETERMINATION. Brock Chavez, CASE MANAGEMENT DCP- Discharge Planning Updated by [id number]: Brock Chavez on 02/22/18 2:[address] Patient Name: CHRISTINE NGUYEN Encounter No: [id number] : 1975 Primary Insurance: MEDICARE A & B Anticipated DC Date: Planned Disposition: Prison Facility External Planned Provider: FIRST ACCEPTING FACILITY DCP follow-up note: CM RECEIVED CALL FROM CHETNA, PT'S STEP FATHER WHO REPORTS HE CALLED [facility] AND THEY TOLD HIM THE REASON THEY CANNOT ACCEPT IS THAT PT'S SPECIAL PROCEDURES TECH CARE MEDICAID WAS INACTIVE AND CM NEEDED TO FILE FOR SPECIAL PROCEDURES TECH CARE MEDICAID. CM EXPLAINED THAT THERE ARE OTHER FACTORS USED IN MAKING THEIR DECISION AND THAT THE USP, NOT CM, APPLIES FOR [facility] MEDICAID. CHETNA STATES HE AND PT WANT HER TO GO TO [facility]; CM EXPLAINED THAT THE FACILITY HAD SAID NO; CHETNA ASKED FOR CM TO CALL THEM BACK AND HE WILL DO THE SAME. CM CALLED MARIXA OF [facility], , LEFT DETAILED MESSAGE ASKING FOR RETURN CALL. CM RECEIVED CALL FROM [facility], SHE WILL VISIT WITH AND ASSESS PT FOR LEVEL 2 DONA SCREENING TODAY AFTER NOON. PT HAS BEEN DECLINED FOR SPECIAL PROCEDURES TECH CARE FROM [facility] AND [facility]. CM WAITING ADMISSION DETERMINATIONS FROM [facility] AND [facility]. CM WAITING LEVEL 2 DONA SCREENING COMPLETION AND DETERMINATION. Brock Chavez, CASE MANAGEMENT Appended by Brock Chavez on 02/22/2018 15:16 BARREL RIBS SOLDERER: CM SPOKE TO DOROTHEA OF [facility], THEY WILL NOT ACCEPT PT. CM SPOKE TO [facility], THEY CANNOT MEET PT'S NEEDS. CM SPOKE TO NATHALIE OF [facility], THEY CANNOT TAKE PT. CM CALLED AND SPOKE TO [facility] WHO INFORMED CM THEY ARE STILL CONSIDERING PT FOR PLACEMENT AND WILL VISIT WITH PT ON 02-24-18. PT NOTIFIED OF ABOVE; PT CONTINUES TO DECLINE REFERRAL TO [facility] AND UNDERSTANDS IF [facility] DECLINES, CM WILL HAVE TO SEND REFERRAL OUTSIDE OF [place] FOR PLACEMENT CONSIDERATION. PT HAS BEEN DECLINED FOR [facility] AT [facility], [facility], [facility], [facility] AND [facility]. CM WAITING ADMISSION DETERMINATION FROM [facility]. CM WAITING LEVEL 2 DONA SCREENING COMPLETION AND DETERMINATION. TERRA Amato DCP- Discharge Planning Updated by [id number]: Brock Chavez on 02/19/18 3:[address] Patient Name: CHRISTINE NGUYEN Encounter No: [id number] : 1975 Primary Insurance: MEDICARE A & B Anticipated DC Date: Planned Disposition: Prison Facility External Planned Provider: ANY ACCEPTING [place] [facility], MEDICARE REHAB BED DCP follow-up note: CM RECEIVED CALL FROM [facility], THEY WILL NOT ACCEPT DUE TO FINANCIAL CONCERNS. CM SPOKE TO DR. DUMONT AND PROVIDED UPDATE. CM SPOKE TO PT IN ROOM WHO WAS UPSET STATING SHE PAID THEM THE MONEY THAT WAS OWED AND THE ONLY USP SHE OWES MONEY TO IS [facility] WHICH SHE OWES $21,000. CM DISCUSSED NURSING FACILITY OPTIONS IN [place], PT ASKED THAT REFERRALS BE SENT TO ALL LOCAL NURSING [facility] EXCEPT [facility] AND [facility]. CHOICE LETTER COMPLETED. CM FAXED REFERRALS TO [facility], [facility], [facility], [facility], [facility]. CM WAITING ADMISSION DETERMINATIONS FROM [facility], [facility], [facility], [facility]. CM WAITING LEVEL 2 DONA SCREENING COMPLETION AND DETERMINATION. Brock Chavez CASE MANAGEMENT Appended by Brock Chavez on 02/19/2018 16:07 BARREL RIBS SOLDERER: CM RECEIVED CALL FROM PT WHO REPORTS THAT HER FATHER CALLED [facility] WHO INFORMED HIM THAT HER MEDICAID WAS INACTIVE. CM CALLED EDWIN OF [employer] [facility] [place] WHO CONFIRMED PT HAD [facility] MEDICAID THAT ENDED. EDWIN INFORMED CM THAT THE USP WILL NEED TO REAPPLY FOR SPECIAL PROCEDURES TECH CARE MEDICAID, SHE IS NOT ABLE TO DO THAT APPLICATION. PT NOTIFIED. CM RECEIVED CALL FROM DOROTHEA OF [facility] WHO DECLINED PT. PT HAS BEEN DECLINED FOR [facility] FROM [facility] AND [facility]. CM WAITING ADMISSION DETERMINATIONS FROM [facility], [facility], [facility]. CM WAITING LEVEL 2 DONA SCREENING COMPLETION AND DETERMINATION. Brock Chavez CASE MANAGEMENT Appended by Brock Chavez on 02/19/2018 16:55 BARREL RIBS SOLDERER: CM RECEIVED MESSAGE FROM [facility], PT HAS BEEN DECLINED. PT HAS BEEN DECLINED FOR SPECIAL PROCEDURES TECH CARE FROM [facility], [facility] AND [facility]. CM WAITING ADMISSION DETERMINATIONS FROM [facility], [facility], [facility] AND [facility]. CM WAITING LEVEL 2 DONA SCREENING COMPLETION AND DETERMINATION. Brock Chavez, CASE MANAGEMENT DCP- Discharge Planning Updated by [id number]: Brock Chavez on 02/17/18 2:[address] Patient Name: CHRISTINE NGUYEN Encounter No: [id number] : 1975 Primary Insurance: MEDICARE A & B Anticipated DC Date: Planned Disposition: Prison Facility External Planned Provider: [facility], MEDICARE REHAB BED DCP follow-up note: CM COMPLETED DONA THAT CM STARTED ON 02-15-18, DOCTOR AND PT SIGNATURES WERE OBTAINED. CM MET WITH PT IN ROOM TO DISCUSS DISCHARGE PLANNING AND NEEDS. PT REPORTS SHE IS NOT ABLE TO CARE FOR HERSELF AND HER PARENTS, WHOM SHE WAS LIVING WITH, ARE NOT ABLE TO EITHER. PT WOULD LIKE PLACMENT AT [facility]. PT HAS TALKED TO [facility] WHO TOLD HER THAT IT DEPENDS ON IF THE DOCTOR WILL TAKE HER BACK THERE OR NOT. PT REPORTS SHE HAS BEEN TO [facility], [facility] AND [facility] FOR REHAB AND [facility] IN THE PAST. PT LEFT THE [facility] IN FEBRUARY OR MARCH OF THIS YEAR AND MOVED IN WITH HER PARENTS. PT'S FIRST CHOICE FOR REHAB AND SPECIAL PROCEDURES TECH CARE IS [facility], SECOND CHOICE IS THE [facility]. PT WILL NOT CONSIDER [facility] AGAIN. CHOICE COMPLETED AND SIGNED. IMPORTANT MESSAGE FROM MEDICARE PROVIDED AND DISCUSSED. PT REPORTS THE LAST DONA THAT WAS DONE THEY HAD TO DO A LEVEL 2 SCREENING. CM CALLED [facility], , LEFT MESSAGE ASKING FOR RETURN CALL. CM FAXED REFERRAL TO [facility] AT [phone]. CM FAXED COMPLETED DONA SCREENING AND SUPPORTING DOCUMENTS TO [facility] AT [phone]. CM WAITING ADMISSION DETERMINATION FROM [facility] AND DONA SCREENING COMPLETION. Brock Chavez, CASE MANAGEMENT Appended by Brock Chavez on 02/17/2018 9:57 BARREL RIBS SOLDERER: CM RECEIVED CALL FROM [facility], , WHO INSTRUCTED CM TO SEND THE REFERRAL AND THEIR DOCTOR AND DIRECTOR WILL LOOK AT IT TO MAKE ADMISSION DETERMINATION. REFERRAL PREVIOUSLY FAXED TODAY TO [facility] AT [phone]. CM WAITING ADMISSION DETERMINATION FROM [facility] AND DONA SCREENING COMPLETION. Brock Chavez, CASE MANAGEMENT Appended by Brock Chavez on 02/17/2018 15:44 BARREL RIBS SOLDERER: CM RECEIVED DONA SCREENING RESPONSE, PT WILL REQUIRE LEVEL 2 SCREENING WHICH MAY TAKE UP TO 9 (NINE) BUSINESS DAYS TO COMPLETE. CM FAXED DONA DETERMINATION REQUIRING LEVEL 2 SCREEN TO [facility] AT [phone]. CM WAITING ADMISSION DETERMINATION FROM [facility] AND DONA LEVEL 2 SCREENING COMPLETION WHICH CAN TAKE UP TO 9 (NINE) BUSINESS DAYS. Brock Chavez CASE MANAGEMENT DCP- Discharge Planning Updated by [id number]: Misti Mccann on 02/12/18 5:[address] Patient Name: CHRISTINE NGUYEN Admission Status: ER Accout number: [id number] Admission Date: 02-11-2018 : 1975 Admission Diagnosis: Attending: DREW DUMONT Current LOS: 1 Anticipated DC Date: Planned Disposition: Prison Facility Primary Insurance: MEDICARE A & B Discharge Planning Comments: CM spoke with patient at bedside. Patient states she knows she can't return to her home. She is totally dependent of all her ADLs she is can feed herself but that is about all. APS has been notified of case. Patient is requesting to discharge to [facility]. CM will contact [facility]. CM will fax records to [facility] for possible placement when stable. CM will continue to follow and assist with discharge planning / needs. Ticket Dispenser Changer: Misti Mccann DCPIA - Discharge Planning Initial Assessment Updated by [id number]: Misti Mccann on 02/12/18 6:12 pm * Is the patient Alert and Oriented? Yes * PCP Dr. bueno * Pharmacy [facility] * Preadmission Environment Home with Family * ADLs Total Dependent * Equipment Wheelchair * List name and contact numbers for known caregivers / representatives who currently or will assist patient after discharge: Meggan Carlson mother [phone] * Verbal permission to speak to the caregivers and representatives has been obtained from the patient. N/A * Community resources currently utilized None * Additional services required to return to the preadmission environment? Yes * Can the patient safely return to the preadmission environment? No * Has this patient been hospitalized within the prior 30 days at any hospital? No Coverage Notice Reviewer: SAKINA Chavez Notice Issued Date-Time: 02/17/2018 8:10 Notice Type: IM Discharge Notice Notice Delivered To: Patient Relationship to Patient: Artificial Insemination Technician Name: Delivery Method: HAND - Hand Delivered Lash[place] Days: Prior Verbal Notification: Recipient Understood Notice: Yes Recipient Signature: Yes Med Rec Note Co-signed by Attending: Coverage Notice Comment: Reviewer: SAKINA Chavez Notice Issued Date-Time: 02/17/2018 8:10 Notice Type: Patient Choice Letter Notice Delivered To: Patient Relationship to Patient: Artificial Insemination Technician Name: Delivery Method: HAND - Hand Delivered Lashonda Days: Prior Verbal Notification: Recipient Understood Notice: Yes Recipient Signature: Yes Med Rec Note Co-signed by Attending: Coverage Notice Comment: 1- [facility] / 2- [facility] Reviewer: SAKINA Chavez Notice Issued Date-Time: 02/19/2018 9:30 Notice Type: Patient Choice Letter Notice Delivered To: Patient Relationship to Patient: Artificial Insemination Technician Name: Delivery Method: HAND - Hand Delivered Lash[place] Days: Prior Verbal Notification: Recipient Understood Notice: Yes Recipient Signature: Yes Med Rec Note Co-signed by Attending: Coverage Notice Comment: [facility] [place] [facility] EXCEPT: [facility] OR [facility]. Reviewer: SAKINA Chavez Notice Issued Date-Time: 02/26/2018 12:50 Notice Type: IM Discharge Notice Notice Delivered To: Patient Relationship to Patient: Artificial Insemination Technician Name: Delivery Method: HAND - Hand Delivered Lashonda Days: Prior Verbal Notification: Recipient Understood Notice: Yes Recipient Signature: Yes Med Rec Note Co-signed by Attending: Coverage Notice Comment: Last DP export: 03/01/18 3:29 pm Patient Name: CHRISTINE NGUYEN Page [id number] at 1124 All edits/amendments must be made on the electronic document DICTATION DATE: 03/02/18 1123 SLUBBER RUNNER: KAYODE 03/02/18 1123 RPT#: [id number] DC DATE: STATUS: ADM IN [facility] [address] [place] [address] END OF REPORT
--- NOTE | 2018-03-02 13:20 | NUR ---
Nutrition Follow Up: Chart reviewed. Diet: ADA PO Intake: 69% meal avg BM: 03/01/18 Wt loss noted Meds and labs reviewed Rec continue current diet. Will continue to honor food preferences. RD following.
--- NOTE | 2018-03-02 14:24 | NUR ---
NO CHANGE IN ASSESSMENT. NO C/O PAIN. VISITOR IN ROOM.
--- NOTE | 2018-03-02 14:57 | NUR ---
MOVED TO ROOM 1212 MED 3. REPORT CALLED TO SMOOTH KELLER.
--- NOTE | 2018-03-02 17:09 | MORECARE ---
CASE MANAGEMENT DISCHARGE SUMMARY PATIENT: CHRISTINE NGUYEN UNIT: [id number] ADM DATE: 02/11/18 AGE: 42 : [birth year] SEX: F ROOM/BED: D.1212 AUTHOR: ABBEY ALVA PHYSICIAN: REFERRING PHYSICIAN: DREW DUMONT MD DATE OF SERVICE: 03/02/18 Discharge Plan Patient Name: CHRISTINE NGUYEN Facility: [facility]:[place] : 1975 Planned Disposition: Snf Facility Anticipated Discharge Date: 02/26/18 Discharge Date: Expected LOS: 15 Initial Reviewer: [id number] Initial Review Date: 02/12/2018 Generated: 03/02/18 6:09 pm Comments DCP- Discharge Planning Updated by [id number]: Sylvia Silva on 03/02/18 4:[address] Patient Name: CHRISTINE NGUYEN Encounter No: [id number] : 1975 Primary Insurance: MEDICARE A & B Anticipated DC Date: 02-26-2018 Planned Disposition: Snf Facility External Planned Provider: [facility], MEDICARE REHAB BED DCP follow-up note: CM RECEIVED CALL FROM SELVIN [facility] WHO ASKED FOR CM TO FAX DONA APPROVAL TO HER AND SHE WILL CHECK TO SEE IF PT'S BANK STATEMENTS HAVE BEEN RECEIVED BY FACILITY. CM FAXED DONA APPROVAL TO [facility] AT [phone]. PT HAS BEEN DECLINED FOR USP CARE AT [facility], [facility], [facility], [place], [facility] AND [facility]. DONA SCREENING COMPLETED AND CLEARED FOR PRISON FACILITY ENTRY.CM WAITING ADMISSION DETERMINATION FROM [facility] WHO IS WORKING ON MEDICAID FOR USP CARE, PT IS TO PROVIDE THREE MONTHS OF DETAILED BANK STATEMENTS. Brock Chavez, CASE MANAGEMENT Appended by Sylvia Silva on 03/02/2018 17:04 STEWARD/STEWARDESS DECK: CM SPOKE WITH PATIENT AND SHE STATES "SIMPLY PAYED" WHICH IS HER ONLY BANK STATEMENTS IS BEING EMAILED TO [facility]. DCP- Discharge Planning Updated by [id number]: Brock Chavez on 03/01/18 3:[address] Patient Name: CHRISTINE NGUYEN Encounter No: [id number] : 1975 Primary Insurance: MEDICARE A & B Anticipated DC Date: 02-26-2018 Planned Disposition: Snf Facility External Planned Provider:[facility], MEDICARE REHAB BED DCP follow-up note: CM FAXED UPDATE TO [facility] AT [phone]. CM NOTIFIED PT. PT HAS BEEN DECLINED FOR USP CARE AT [facility], [facility], [facility], [place], [facility] AND [facility]. DONA SCREENING COMPLETED AND CLEARED FOR PRISON FACILITY ENTRY.CM WAITING ADMISSION DETERMINATION FROM [facility] WHO IS WORKING ON MEDICAID FOR MINE FOREMAN CARE. Brock Chavez CASE MANAGEMENT DCP- Discharge Planning Updated by [id number]: Brock Chavez on 02/26/18 12:[address] Patient Name: CHRISTINE NGUYEN Encounter No: [id number] : 1975 Primary Insurance: MEDICARE A & B Anticipated DC Date: 02-26-2018 Planned Disposition: Snf Facility External Planned Provider: [facility], MEDICARE REHAB BED DCP follow-up note: CM RECEIVED DONA RESPONSE, PT IS CLEARED TO ENTER PRISON BY [facility]. CM CALLED [facility], , NOTIFIED OF DONA CLEARANCE AND REQUESTED ADMISSION DETERMINATION. CM FAXED DONA CLEARANCE LETTER AND UPDATE TO [facility] AT [phone]. CM NOTIFIED PT, PROVIDED AND EXPLAINED IMPORTANT MESSAGE FROM MEDICARE. PT HAS BEEN DECLINED FOR MINE FOREMAN CARE AT [facility], [facility], [facility], [place], [facility] AND [facility]. DONA SCREENING COMPLETED AND CLEARED FOR PRISON FACILITY ENTRY.CM WAITING ADMISSION DETERMINATION FROM [facility] WHO IS WORKING ON MEDICAID FOR MINE FOREMAN CARE. Brock Chavez CASE MANAGEMENT DCP- Discharge Planning Updated by [id number]: Brock Chavez on 02/24/18 10:[address] Patient Name: CHRISTINE NGUYEN Encounter No: [id number] : 1975 Primary Insurance: MEDICARE A & B Anticipated DC Date: Planned Disposition: Snf Facility External Planned Provider: [facility], MEDICARE REHAB BED DCP follow-up note: CM RECEIVED CALL FROM SELVIN [facility], THEY WILL VISIT WITH PT IN HOSPITAL TODAY TO ASSESS PT FOR ADMISSION. CM HAS NOT YET RECEIVED LEVEL 2 [facility] DETERMINATION. PT HAS BEEN DECLINED FOR MINE FOREMAN CARE AT [facility], [facility], [facility] AND [facility]. CM WAITING ADMISSION DETERMINATION FROM [facility]. CM WAITING LEVEL 2 DONA SCREENING COMPLETION AND DETERMINATION. Brock Chavez, CASE MANAGEMENT DCP- Discharge Planning Updated by [id number]: Brock Chavez on 02/22/18 2:[address] Patient Name: CHRISTINE NGUYEN Encounter No: [id number] : 1975 Primary Insurance: MEDICARE A & B Anticipated DC Date: Planned Disposition: Snf Facility External Planned Provider: FIRST ACCEPTING FACILITY DCP follow-up note: CM RECEIVED CALL FROM CHETNA, PT'S STEP FATHER WHO REPORTS HE CALLED [facility] AND THEY TOLD HIM THE REASON THEY CANNOT ACCEPT IS THAT PT'S USP CARE MEDICAID WAS INACTIVE AND CM NEEDED TO FILE FOR MINE FOREMAN CARE MEDICAID. CM EXPLAINED THAT THERE ARE OTHER FACTORS USED IN MAKING THEIR DECISION AND THAT THE USP, NOT CM, APPLIES FOR USP CARE MEDICAID. CHETNA STATES HE AND PT WANT HER TO GO TO [facility]; CM EXPLAINED THAT THE FACILITY HAD SAID NO; CHETNA ASKED FOR CM TO CALL THEM BACK AND HE WILL DO THE SAME. CM CALLED MARIXA OF [facility], , LEFT DETAILED MESSAGE ASKING FOR RETURN CALL. CM RECEIVED CALL FROM SYLVIA KAN [facility], SHE WILL VISIT WITH AND ASSESS PT FOR LEVEL 2 DONA SCREENING TODAY AFTER NOON. PT HAS BEEN DECLINED FOR USP CARE FROM [facility], [place] AND [facility]. CM WAITING ADMISSION DETERMINATIONS FROM [facility], [facility] AND [facility]. CM WAITING LEVEL 2 DONA SCREENING COMPLETION AND DETERMINATION. Brock Chavez, CASE MANAGEMENT Appended by Brock Chavez on 02/22/2018 15:16 STEWARD/STEWARDESS DECK: CM SPOKE TO DOROTHEA OF [facility], THEY WILL NOT ACCEPT PT. CM SPOKE TO [facility], THEY CANNOT MEET PT'S NEEDS. CM SPOKE TO NATHALIE OF [facility], THEY CANNOT TAKE PT. CM CALLED AND SPOKE TO DAVY [facility] WHO INFORMED CM THEY ARE STILL CONSIDERING PT FOR PLACEMENT AND WILL VISIT WITH PT ON 02-24-18. PT NOTIFIED OF ABOVE; PT CONTINUES TO DECLINE REFERRAL TO [facility] AND UNDERSTANDS IF [facility] DECLINES, CM WILL HAVE TO SEND REFERRAL OUTSIDE OF [place] FOR PLACEMENT CONSIDERATION. PT HAS BEEN DECLINED FOR MINE FOREMAN CARE AT [facility], [facility], [place], [facility]. CM WAITING ADMISSION DETERMINATION FROM [facility]. CM WAITING LEVEL 2 DONA SCREENING COMPLETION AND DETERMINATION. Brock Chavez CASE MANAGEMENT DCP- Discharge Planning Updated by [id number]: Brock Chavez on 02/19/18 3:[address] Patient Name: CHRISTINE NGUYEN Encounter No: [id number] : 1975 Primary Insurance: MEDICARE A & B Anticipated DC Date: Planned Disposition: Snf Facility External Planned Provider: ANY ACCEPTING [place] [facility], MEDICARE REHAB BED DCP follow-up note: CM RECEIVED CALL FROM MARIXA [facility], THEY WILL NOT ACCEPT DUE TO FINANCIAL CONCERNS. CM SPOKE TO DR. DUMONT AND PROVIDED UPDATE. CM SPOKE TO PT IN ROOM WHO WAS UPSET STATING SHE PAID THEM THE MONEY THAT WAS OWED AND THE ONLY USP SHE OWES MONEY TO IS [facility] WHICH SHE OWES $21,000. CM DISCUSSED NURSING FACILITY OPTIONS IN [place], PT ASKED THAT REFERRALS BE SENT TO ALL LOCAL NURSING [facility] EXCEPT [facility] AND [facility]. CHOICE LETTER COMPLETED. CM FAXED REFERRALS TO [facility], [place] [facility], [facility], [facility]. CM WAITING ADMISSION DETERMINATIONS FROM [facility], [place], [facility], [facility]. CM WAITING LEVEL 2 DONA SCREENING COMPLETION AND DETERMINATION. Brock Chavez, CASE MANAGEMENT Appended by Brock Chavez on 02/19/2018 16:07 STEWARD/STEWARDESS DECK: CM RECEIVED CALL FROM PT WHO REPORTS THAT HER FATHER CALLED [facility] WHO INFORMED HIM THAT HER MEDICAID WAS INACTIVE. CM CALLED EDWIN OF [facility] [place] WHO CONFIRMED PT HAD MINE FOREMAN CARE MEDICAID THAT ENDED. EDWIN INFORMED CM THAT THE USP WILL NEED TO REAPPLY FOR USP CARE MEDICAID, SHE IS NOT ABLE TO DO THAT APPLICATION. PT NOTIFIED. CM RECEIVED CALL FROM DOROTHEA [facility] WHO DECLINED PT. PT HAS BEEN DECLINED FOR [facility]INE FOREMAN CARE FROM [facility]. CM WAITING ADMISSION DETERMINATIONS FROM [facility], [facility] AND [facility]. CM WAITING LEVEL 2 DONA SCREENING COMPLETION AND DETERMINATION. Brock Chavez, CASE MANAGEMENT Appended by Brock Chavez on 02/19/2018 16:55 STEWARD/STEWARDESS DECK: CM RECEIVED MESSAGE FROM AISHA [facility], PT HAS BEEN DECLINED. PT HAS BEEN DECLINED FOR MINE FOREMAN CARE FROM [facility] AND [facility]. CM WAITING ADMISSION DETERMINATIONS FROM [facility] AND [facility]. CM WAITING LEVEL 2 DONA SCREENING COMPLETION AND DETERMINATION. Brock Chavez, CASE MANAGEMENT DCP- Discharge Planning Updated by [id number]: Brock Chavez on 02/17/18 2:[address] Patient Name: CHRISTINE NGUYEN Encounter No: [id number] : 1975 Primary Insurance: MEDICARE A & B Anticipated DC Date: Planned Disposition: Snf Facility External Planned Provider: [facility], MEDICARE REHAB BED DCP follow-up note: CM COMPLETED DONA THAT CM STARTED ON 02-15-18, DOCTOR AND PT SIGNATURES WERE OBTAINED. CM MET WITH PT IN ROOM TO DISCUSS DISCHARGE PLANNING AND NEEDS. PT REPORTS SHE IS NOT ABLE TO CARE FOR HERSELF AND HER PARENTS, WHOM SHE WAS LIVING WITH, ARE NOT ABLE TO EITHER. PT WOULD LIKE PLACMENT AT [facility]. PT HAS TALKED TO [facility] WHO TOLD HER THAT IT DEPENDS ON IF THE DOCTOR WILL TAKE HER BACK THERE OR NOT. PT REPORTS SHE HAS BEEN TO [facility], [facility] AND [facility] FOR REHAB AND USP CARE IN THE PAST. PT LEFT THE [facility] IN FEBRUARY OR MARCH OF THIS YEAR AND MOVED IN WITH HER PARENTS. PT'S FIRST CHOICE FOR REHAB AND MINE FOREMAN CARE IS [facility], SECOND CHOICE IS THE [facility]. PT WILL NOT CONSIDER [facility] AGAIN. CHOICE COMPLETED AND SIGNED. IMPORTANT MESSAGE FROM MEDICARE PROVIDED AND DISCUSSED. PT REPORTS THE LAST DONA THAT WAS DONE THEY HAD TO DO A LEVEL 2 SCREENING. CM CALLED MARIXA OF [facility], , LEFT MESSAGE ASKING FOR RETURN CALL. CM FAXED REFERRAL TO [facility] AT [phone]. CM FAXED COMPLETED DONA SCREENING AND SUPPORTING DOCUMENTS TO [facility] AT [phone]. CM WAITING ADMISSION DETERMINATION FROM [facility] AND DONA SCREENING COMPLETION. Brock Chavez CASE MANAGEMENT Appended by Brock Chavez on 02/17/2018 9:57 STEWARD/STEWARDESS DECK: CM RECEIVED CALL FROM MARIXA OF [facility], , WHO INSTRUCTED CM TO SEND THE REFERRAL AND THEIR DOCTOR AND DIRECTOR WILL LOOK AT IT TO MAKE ADMISSION DETERMINATION. REFERRAL PREVIOUSLY FAXED TODAY TO [facility] AT [phone]. CM WAITING ADMISSION DETERMINATION FROM [facility] AND DONA SCREENING COMPLETION. Brock Chavez CASE MANAGEMENT Appended by Brock Chavez on 02/17/2018 15:44 STEWARD/STEWARDESS DECK: CM RECEIVED DONA SCREENING RESPONSE, PT WILL REQUIRE LEVEL 2 SCREENING WHICH MAY TAKE UP TO 9 (NINE) BUSINESS DAYS TO COMPLETE. CM FAXED DONA DETERMINATION REQUIRING LEVEL 2 SCREEN TO [facility] AT [phone]. CM WAITING ADMISSION DETERMINATION FROM [facility] AND DONA LEVEL 2 SCREENING COMPLETION WHICH CAN TAKE UP TO 9 (NINE) BUSINESS DAYS. TERRA Amato DCP- Discharge Planning Updated by [id number]: Misti Mccann on 02/12/18 5:[address] Patient Name: CHRISTINE NGUYEN Admission Status: ER Accout number: [id number] Admission Date: 02-11-2018 : 1975 Admission Diagnosis: Attending: DREW DUMONT Current LOS: 1 Anticipated DC Date: Planned Disposition: Snf Facility Primary Insurance: MEDICARE A & B Discharge Planning Comments: CM spoke with patient at bedside. Patient states she knows she can't return to her home. She is totally dependent of all her ADLs she is can feed herself but that is about all. APS has been notified of case. Patient is requesting to discharge to [facility]. CM will contact [facility]. CM will fax records to [facility] for possible placement when stable. CM will continue to follow and assist with discharge planning / needs. Back Winder: Misti Mccann DCPIA - Discharge Planning Initial Assessment Updated by [id number]: Misti Mccann on 02/12/18 6:12 pm * Is the patient Alert and Oriented? Yes * PCP Dr. bueno * Pharmacy [facility] or [facility] * Preadmission Environment Home with Family * ADLs Total Dependent * Equipment Wheelchair * List name and contact numbers for known caregivers / representatives who currently or will assist patient after discharge: Meggan Carlson mother [phone] * Verbal permission to speak to the caregivers and representatives has been obtained from the patient. N/A * Community resources currently utilized None * Additional services required to return to the preadmission environment? Yes * Can the patient safely return to the preadmission environment? No * Has this patient been hospitalized within the prior 30 days at any hospital? No Coverage Notice Reviewer: SAKINA Chavez Notice Issued Date-Time: 02/17/2018 8:10 Notice Type: IM Discharge Notice Notice Delivered To: Patient Relationship to Patient: Booster Pump Oiler Name: Delivery Method: HAND - Hand Delivered [place] Days: Prior Verbal Notification: Recipient Understood Notice: Yes Recipient Signature: Yes Med Rec Note Co-signed by Attending: Coverage Notice Comment: Reviewer: SAKINA Chavez Notice Issued Date-Time: 02/17/2018 8:10 Notice Type: Patient Choice Letter Notice Delivered To: Patient Relationship to Patient: Booster Pump Oiler Name: Delivery Method: HAND - Hand Delivered [place] Days: Prior Verbal Notification: Recipient Understood Notice: Yes Recipient Signature: Yes Med Rec Note Co-signed by Attending: Coverage Notice Comment: 1- [facility] / 2- [facility] Reviewer: SAKINA Chavez Notice Issued Date-Time: 02/19/2018 9:30 Notice Type: Patient Choice Letter Notice Delivered To: Patient Relationship to Patient: Booster Pump Oiler Name: Delivery Method: HAND - Hand Delivered [place] Days: Prior Verbal Notification: Recipient Understood Notice: Yes Recipient Signature: Yes Med Rec Note Co-signed by Attending: Coverage Notice Comment: [facility] [place] [facility] EXCEPT: [facility] OR [facility]. Reviewer: SAKINA Chavez Notice Issued Date-Time: 02/26/2018 12:50 Notice Type: IM Discharge Notice Notice Delivered To: Patient Relationship to Patient: Booster Pump Oiler Name: Delivery Method: HAND - Hand Delivered [place] Days: Prior Verbal Notification: Recipient Understood Notice: Yes Recipient Signature: Yes Med Rec Note Co-signed by Attending: Coverage Notice Comment: Last DP export: 03/02/18 10:24 am Patient Name: CHRISTINE NGUYEN Page [id number] at 1709 All edits/amendments must be made on the electronic document DICTATION DATE: 03/02/181707 ORNAMENTAL PLASTER STICKER: KAYODE 03/02/181707 RPT#: [id number] DC DATE: STATUS: ADM IN [facility] [address] [place] [address] END OF REPORT
--- NOTE | 2018-03-02 17:17 | NUR ---
COSIGNED FOR 4UNITS OF INSULIN FOR BLOOD SUGAR OF 197. PT RESTING COMFORTABLY IN BED, RESP EVEN AND NONLABORED. CALL LIGHT IN REACH, NAD NOTED.
[2018-03-02 20:00] VITALS: BP 125/65
--- NOTE | 2018-03-02 21:46 | NUR ---
REST QUIETLY IN BED, CALL LIGHT IN REACH.
[2018-03-03 00:20] VITALS: BP 91/60
--- NOTE | 2018-03-03 00:58 | NUR ---
REST QUIELTY IN BED, CALL LIGHT IN REACH.
--- NOTE | 2018-03-03 01:34 | NUR ---
PATIENT RESTING IN BED WITH EYES CLOSED AND NO S/S OF DISTRESS. BREATHING EVEN AND UNLABORED. BED IN LOWEST POSITION AND CALL LIGHT WITHIN REACH. WILL CONTINUE TO MONITOR.
[2018-03-03 04:00] VITALS: BP 103/64
--- NOTE | 2018-03-03 07:20 | NUR ---
PT RESTING QUIETLY. CL IN REACH. RIGHT FOREARM NS RUNNING AT 30. NO SIGNS OF DISTRESS OR PAIN. BED IN LOW POSITION. SIDE RAILS X2. WCTM
[2018-03-03 08:24] VITALS: BP 100/58
--- NOTE | 2018-03-03 11:55 | NUR ---
PHYSICAL THERAPY IN ROOM GETTING PT UP IN CHAIR. CL IN REACH. PT DENIES NEEDS OR PAIN. RESP EVEN AND UNLABORED. WCTM
[2018-03-03 12:56] VITALS: BP 93/57
--- NOTE | 2018-03-03 15:00 | NUR ---
HELPED PT WITH BEDPAN. PT STATED THAT SHE WILL NEED COMPLETE BED CHANGE AFTER SHE IS DONE, WILL NOTIFY MILL DRESSER. PT DENIES ANY OTHER NEEDS AT THIS TIME. CALL LIGHT IN REACH, NAD NOTED.
[2018-03-03 16:50] VITALS: BP 99/55
--- NOTE | 2018-03-03 18:27 | NUR ---
PT LYING IN BED. CL IN REACH. PT DENIES NEEDS OR PAIN. BED IN LOW POSITION. SIDE RAILS X2. RESP EVEN AND UNLABORED. IV RUNNING NS. WCTM
--- NOTE | 2018-03-03 19:11 | NUR ---
PATIENT IS RSTING IN HER BED. BED IS DOWN LOW WITH SIDE RAILS UP X2. CALL LIGHT IS IN REACH.
[2018-03-03 23:00] VITALS: BP 105/60
--- NOTE | 2018-03-03 23:20 | NUR ---
PATIENT IS RESTING IN HER BED. VITAL SIGNS ARE STABLE. BED IS DOWN LOW WITH SIDE RAILS UP X2. CALL LIGHT IS IN REACH.
--- NOTE | 2018-03-04 03:07 | NUR ---
PATIENT IS SLEEPING. BED IS DOWN LOW WITH SIDE RAILS UP X2 AND CALL LIGHT IN REACH.
[2018-03-04 04:00] VITALS: BP 107/63
[2018-03-04 09:34] VITALS: BP 108/70
--- NOTE | 2018-03-04 11:37 | NUR ---
Redness, excoriation has improved with use of nystop powder and discontinuing the use of adult briefs. There continues to be redness of perineal area and buttocks but the areas have dried out considerably. The redness on hips and abdomen is gone. Pt c/o her bottom "hurting". There is no breakdown noted but recommend an air overlay as a preventive measure. Pt needs to be reminded to turn/reposition herself off of her bottom. Wound care continues to monitor.
[2018-03-04 12:41] VITALS: BP 106/58
--- NOTE | 2018-03-04 14:18 | NUR ---
Nutrition Follow Up: Chart reviewed Diet: ADA PO Intake: 91% meal avg BM: 03/01/18 Labs reviewed - Glucose elevated Meds noted Rec continue current diet. RD following.
[2018-03-04 16:42] VITALS: BP 111/48
--- NOTE | 2018-03-04 16:54 | NUR ---
PT SITTING UP FOR DINNER, DENIES NEEDS. WCTM.
[2018-03-04 23:00] VITALS: BP 103/49
[2018-03-05 04:07] VITALS: BP 114/70
--- NOTE | 2018-03-05 08:00 | NUR ---
AWAKE AND ALERT. ORIENTED X3. ASSISTED WITH BED RENO PER STAFF. VOIDED 200CC CLEAR YELLOW URINE WITHOUT DIFFICULTY. SKIN CARE PER STAFF. LUNGS ARE CLEAR BILATERALLY, NO COUGH NOTED. SKIN IS INTACT WITHOUT REDNESS EXCEPT FOR DEVONTE AREA WHICH IS RED AND YEASTY LOOKING. PATIENT REPORTS THIS IS MUCH IMPROVED. WILL CONTINUE TO MONITOR. SL TO RIGHT FOREARM IS PATENT WITHOUT REDNESS AT INSERTION SITE. DENIES NEEDS.
[2018-03-05 08:24] VITALS: BP 113/68
--- NOTE | 2018-03-05 08:38 | NUR ---
REQUESTED AND GIVEN 0.25 MG XANAX PO FOR C/O ANXIETY. WILL MONITOR.
--- NOTE | 2018-03-05 09:30 | NUR ---
RESTING QUIETLY WITH EYES CLOSED. NO NEEDS NOTED.
[2018-03-05 11:40] VITALS: BP 99/60
--- NOTE | 2018-03-05 11:50 | NUR ---
FSBS 114. NO COVERAGE REQUIRED.
--- NOTE | 2018-03-05 13:50 | NUR ---
REQUESTED AND GIVEN 100MG ULTRAM PO FOR C/O LEFT SIDE PAIN LEVEL 7. WILL MONITOR.
[2018-03-05 16:43] VITALS: BP 100/62
--- NOTE | 2018-03-05 18:57 | NUR ---
ATE ALL SUPPER. ASSISTED WITH BED RENO PER STAFF. SKIN CARE PER STAFF. LINENS CHANGED. NO CHANGES NOTED.
[2018-03-05 20:36] VITALS: BP 117/60
[2018-03-06] VITALS: BP 100/60
[2018-03-06 08:25] VITALS: BP 91/55
--- NOTE | 2018-03-06 09:10 | NUR ---
PT AM MEDS ADMINISETERD. PT DENIES NEEDS. WCTM.
[2018-03-06 12:02] VITALS: BP 98/63
--- NOTE | 2018-03-06 12:45 | NUR ---
PT SITTING UP IN CHAIR EATING LUNCH, FAMILY AT BEDSIDE. WCTM.
--- NOTE | 2018-03-06 16:35 | NUR ---
PT REQ AND REC'D PRN PAIN MEDICATION. PT DENIES FURTHER NEEDS. WCTM.
[2018-03-06 19:00] VITALS: BP 122/66
[2018-03-07] VITALS: BP 109/70
[2018-03-07 03:00] VITALS: BP 115/48
--- NOTE | 2018-03-07 03:43 | NUR ---
I CONCUR WITH STAFFING OPERATIONS MANAGER ASSESSMENT.
--- NOTE | 2018-03-07 07:00 | NUR ---
RECIEVED REPORT. ASSUMED CARE OF PATIENT. CALL LIGHT WITH IN REACH. 1ST STEP OVERLAY PATENT. NO DISTRESS. AWAKE, ALERT, ORIENTED.
--- NOTE | 2018-03-07 08:36 | NUR ---
FSBS 100. 27 UNITS LANTUS SOLOSTAR PROVIDED ORDERED. NO DISTRESS.
[2018-03-07 09:37] VITALS: BP 104/56
--- NOTE | 2018-03-07 12:01 | NUR ---
FSBS 161. 4 UNITS ADMINISTERED PER SLIDING SCALE. NO DISTRESS. SITTING OOB TO CHAIR AT BEDSIDE.
[2018-03-07 13:00] VITALS: BP 105/59
--- NOTE | 2018-03-07 14:48 | NUR ---
PATIENT ON BEDPAN AT THIS TIME. FAMILY OUTSIDE OF THE ROOM, WAITING IN HALLWAY TO VISIT WITH PATIENT. NO DISTRESS.
--- NOTE | 2018-03-07 15:11 | NUR ---
PATIENTS SON ADAMARIS NGUYEN HERE FROM [place] AND WANTS TO TAKE PATIENT HOME WITH HIM TOMORROW AND PATIENT IS IN AGREEMENT WITH GOING HOME WITH HIM OPPOSSED TO BEING PLACED IN A [facility] F[facility]ILITY. ADAMARIS NGUYEN NUMBER [phone] OR [phone]. JOE ON UNIT AND INFORMED HER THAT IN BILLING ANALYST BUT IS THE ATTENDING AND IS VERY WELL FAMILIAR WITH HER CARE AND HE WOULD BE THE ONE TO DISCHARGE PATIENT. INFORMED FAMILY THAT MAKES ROUNDS VERY EARLY, USUALLY HERE BY 0700. PATIENTS SON VERBALIZED HIS UNDERSTANDING.
[2018-03-07 15:12] VITALS: BP 98/52
--- NOTE | 2018-03-07 15:59 | NUR ---
CALL PLACED TO TO REQUEST TO D/C TELEMETRY AND TO PLACE NEW ORDER FOR TRAMADOL PATIENTS ORDER HAS FALLEN OFF OF HER MAR. AWAITING CALLBACK AT THIS TIME.
--- NOTE | 2018-03-07 16:05 | NUR ---
NEW ORDER RECEIVED TO CONTINUE TRAMADOL.
--- NOTE | 2018-03-07 16:13 | MORECARE ---
CASE MANAGEMENT DISCHARGE SUMMARY PATIENT: CHRISTINE NGUYEN UNIT: [id number] ADM DATE: 02/11/18 AGE: 42 : [birth year] SEX: F ROOM/BED: D.1212 AUTHOR: ABBEY ALVA PHYSICIAN: REFERRING PHYSICIAN: DREW DUMONT MD DATE OF SERVICE: 03/07/18 Discharge Plan Patient Name: CHRISTINE NGUYEN Facility: [facility]:[place] : 1975 Planned Disposition: Halfway Facility Anticipated Discharge Date: 02/26/18 Discharge Date: Expected LOS: 15 Initial Reviewer: [id number] Initial Review Date: 02/12/2018 Generated: 03/07/18 5:13 pm Comments DCP- Discharge Planning Updated by [id number]: Chey Moreno on 03/07/18 3:[address] LATE ENTRY 1530 PRIMARY NURSE ADVISED CM THAT THE PATIENT' SON, ADAMARIS NGUYEN, IS HERE FROM [place]. HE PLANS TO TAKE HIS MOTHER VIA CAR TO HIS HOME IN [place] THURSDAY THIS IS APPROXIMATELY AN EIGHT HOUR DRIVE. CM REVIEWED NOTES. ADVISED THE SON IT APPEARS APS IS INVOLVED IN THE CASE. WILL NEED TO COMMUNICATE WITH APS. PATIENT CANNOT BE ISCHARGED WITHOUT THEIR RELEASE. ADVISED THE APS STAFF WOULD BE BACK IN THE OFFICE THURSDAY. HE PLANS TO BE IN EARLY AM TO SPEAK WITH DR DUMONT. CM ALSO ADVISED STAFF TO INFORM HIM OF PATIENT NEEDS. WOULD LIKELY BE A DIFFICULT TRIP. PATIENT ALSO WOULD NOT HAVE A PHYSICIAN IMMEDIATELY. HE WOULD NEED A COPY OF THE PATIENT'S CHART IF PLAN IS ALLOWED FOR AN ACCEPTING MD. APS WILL NEED TO BE NOTIFIED. DCP- Discharge Planning Updated by [id number]: Sylvia Silva on 03/02/18 4:[address] Patient Name: CHRISTINE NGUYEN Encounter No: [id number] : 1975 Primary Insurance: MEDICARE A & B Anticipated DC Date: 02-26-2018 Planned Disposition: Halfway Facility External Planned Provider: [facility] DCP follow-up note: NADIA RECEIVED CALL FROM SELVIN [facility] WHO ASKED FOR CM TO FAX DONA APPROVAL TO HER AND SHE WILL CHECK TO SEE IF PT'S BANK STATEMENTS HAVE BEEN RECEIVED BY FACILITY. CM FAXED DONA APPROVAL TO [facility] AT [phone]. PT HAS BEEN DECLINED FOR ASSISTED CARE AT [facility], [facility]. 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 Brock Chavez, CASE MANAGEMENT Appended by Sylvia Silva on 03/02/2018 17:04 CENTRAL OFFICE FRAME WIRER: CM SPOKE WITH PATIENT AND SHE STATES "SIMPLY PAYED" WHICH IS HER ONLY BANK STATEMENTS IS BEING EMAILED TO [facility]. DCP- Discharge Planning Updated by [id number]: Brock Chavez on 03/01/18 3:[address] Patient Name: CHRISTINE NGUYEN Encounter No: [id number] : 1975 Primary Insurance: MEDICARE A & B Anticipated DC Date: 02-26-2018 Planned Disposition: Halfway Facility External Planned Provider:[facility], MEDICARE REHAB BED DCP follow-up note: CM FAXED UPDATE TO [facility] AT [phone]. CM NOTIFIED PT. PT HAS BEEN DECLINED FOR ASSISTED CARE AT [facility], [facility]. 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 Brock Chavez CASE MANAGEMENT DCP- Discharge Planning Updated by [id number]: Brock Chavez on 02/26/18 12:[address] Patient Name: CHRISTINE NGUYEN Encounter No: [id number] : 1975 Primary Insurance: MEDICARE A & B Anticipated DC Date: 02-26-2018 Planned Disposition: Halfway Facility External Planned Provider: [facility], MEDICARE REHAB BED DCP follow-up note: CM RECEIVED DONA RESPONSE, PT IS CLEARED TO ENTER [facility] BY [facility]. CM CALLED SELVIN OF [facility], , NOTIFIED OF DONA CLEARANCE AND REQUESTED ADMISSION DETERMINATION. CM FAXED DONA CLEARANCE LETTER AND UPDATE TO [facility] AT [phone]. CM NOTIFIED PT, PROVIDED AND EXPLAINED IMPORTANT MESSAGE FROM MEDICARE. PT HAS BEEN DECLINED FOR ASSISTED CARE AT [facility]. DONA SCREENING COMPLETED AND CLEARED FOR [facility] FACILITY ENTRY.CM WAITING ADMISSION DETERMINATION FROM [facility] WHO IS WORKING ON MEDICAID FOR ASSISTED CARE. Brock Chavez CASE MANAGEMENT DCP- Discharge Planning Updated by [id number]: Brock Chavez on 02/24/18 10:[address] Patient Name: CHRISTINE NGUYEN Encounter No: [id number] : 1975 Primary Insurance: MEDICARE A & B Anticipated DC Date: Planned Disposition: Halfway Facility External Planned Provider: [facility], MEDICARE REHAB BED DCP follow-up note: CM RECEIVED CALL FROM SELVIN [facility], THEY WILL VISIT WITH PT IN HOSPITAL TODAY TO ASSESS PT FOR ADMISSION. CM HAS NOT YET RECEIVED LEVEL 2 DONA DETERMINATION. PT HAS BEEN DECLINED FOR PROFESSOR OF HISTORICAL THEOLOGY CARE AT [facility]. CM WAITING ADMISSION DETERMINATION FROM [facility]. CM WAITING LEVEL 2 DONA SCREENING COMPLETION AND DETERMINATION. Brock Chavez CASE NOAH DCP- Discharge Planning Updated by [id number]: Brock Chavez on 02/22/18 2:[address] Patient Name: CHRISTINE NGUYEN Encounter No: [id number] : 1975 Primary Insurance: MEDICARE A & B Anticipated DC Date: Planned Disposition: Halfway Facility External Planned Provider: FIRST ACCEPTING FACILITY DCP follow-up note: CM RECEIVED CALL FROM CHETNA PT'S STEP FATHER WHO REPORTS HE CALLED [facility] AND THEY TOLD HIM THE REASON THEY CANNOT ACCEPT IS THAT PT'S PROFESSOR OF HISTORICAL THEOLOGY CARE MEDICAID WAS INACTIVE AND CM NEEDED TO FILE FOR ASSISTED CARE MEDICAID. CM EXPLAINED THAT THERE ARE OTHER FACTORS USED IN MAKING THEIR DECISION AND THAT THE SKILLED NURSING, NOT CM, APPLIES FOR PROFESSOR OF HISTORICAL THEOLOGY CARE MEDICAID. CHETNA STATES HE AND PT WANT HER TO GO TO [facility]; CM EXPLAINED THAT THE FACILITY HAD SAID NO; CHETNA ASKED FOR CM TO CALL THEM BACK AND HE WILL DO THE SAME. CM CALLED MARIXA OF [facility], , LEFT DETAILED MESSAGE ASKING FOR RETURN CALL. CM RECEIVED CALL FROM SYLVIA OF [employer] [facility] [facility], SHE WILL VISIT WITH AND ASSESS PT FOR LEVEL 2 DONA SCREENING TODAY AFTER NOON. PT HAS BEEN DECLINED FOR ASSISTED CARE FROM [facility] AND [facility]. CM WAITING ADMISSION DETERMINATIONS FROM [facility] AND [facility]. CM WAITING LEVEL 2 DONA SCREENING COMPLETION AND DETERMINATION. Brock Chavez, CASE MANAGEMENT Appended by Brock Chavez on 02/22/2018 15:16 CENTRAL OFFICE FRAME WIRER: CM SPOKE TO D[facility]OTHEA [facility], THEY WILL NOT ACCEPT PT. CM SPOKE TO [facility], THEY CANNOT MEET PT'S NEEDS. CM SPOKE TO NATHALIE OF [facility], THEY CANNOT TAKE PT. CM CALLED AND SPOKE TO DAVY [facility] WHO INFORMED CM THEY ARE STILL CONSIDERING PT FOR PLACEMENT AND WILL VISIT WITH PT ON 02-24-18. PT NOTIFIED OF ABOVE; PT CONTINUES TO DECLINE REFERRAL TO [facility] AND UNDERSTANDS IF [facility] DECLINES, CM WILL HAVE TO SEND REFERRAL OUTSIDE OF [place] FOR PLACEMENT CONSIDERATION. PT HAS BEEN DECLINED FOR PROFESSOR OF HISTORICAL THEOLOGY CARE AT [facility], [facility], [facility], [facility] AND [facility]. CM WAITING ADMISSION DETERMINATION FROM [facility]. CM WAITING LEVEL 2 DONA SCREENING COMPLETION AND DETERMINATION. Brock Chavez, CASE MANAGEMENT DCP- Discharge Planning Updated by [id number]: Brock Chavez on 02/19/18 3:[address] Patient Name: CHRISTINE NGUYEN Encounter No: [id number] : 1975 Primary Insurance: MEDICARE A & B Anticipated DC Date: Planned Disposition: Halfway Facility External Planned Provider: ANY ACCEPTING [facility], MEDICARE REHAB BED DCP follow-up note: CM RECEIVED CALL FROM [facility]IX[facility], THEY WILL NOT ACCEPT DUE TO FINANCIAL CONCERNS. CM SPOKE TO DR. DUMONT AND PROVIDED UPDATE. CM SPOKE TO PT IN ROOM WHO WAS UPSET STATING SHE PAID THEM THE MONEY THAT WAS OWED AND THE ONLY SKILLED NURSING SHE OWES MONEY TO IS [facility] WHICH SHE OWES $21,000. CM DISCUSSED NURSING FACILITY OPTIONS IN [place], PT ASKED THAT REFERRALS BE SENT TO ALL LOCAL NURSING HOMES EXCEPT [facility] AND [facility]. CHOICE LETTER COMPLETED. CM FAXED REFERRALS TO [facility], [facility], [facility], [facility] AND [facility]. CM WAITING ADMISSION DETERMINATIONS FROM [facility], [facility], [facility] AND [facility]. CM WAITING LEVEL 2 DONA SCREENING COMPLETION AND DETERMINATION. Brock Chavez, CASE MANAGEMENT Appended by Brock Chavez on 02/19/2018 16:07 CENTRAL OFFICE FRAME WIRER: CM RECEIVED CALL FROM PT WHO REPORTS THAT HER FATHER CALLED [facility] WHO INFORMED HIM THAT HER MEDICAID WAS INACTIVE. CM CALLED EDWIN OF [facility] [place] WHO CONFIRMED PT HAD PROFESSOR OF HISTORICAL THEOLOGY CARE MEDICAID THAT ENDED. EDWIN INFORMED CM THAT THE SKILLED NURSING WILL NEED TO REAPPLY FOR ASSISTED CARE MEDICAID, SHE IS NOT ABLE TO DO THAT APPLICATION. PT NOTIFIED. CM RECEIVED CALL FROM DOROTHEA [facility] WHO DECLINED PT. PT HAS BEEN DECLINED FOR PROFESSOR OF HISTORICAL THEOLOGY CARE FROM [facility] AND [facility]. CM WAITING ADMISSION DETERMINATIONS FROM [facility], [facility] AND [facility] CM WAITING LEVEL 2 DONA SCREENING COMPLETION AND DETERMINATION. Brock Chavez CASE MANAGEMENT Appended by Brock Chavez on 02/19/2018 16:55 CENTRAL OFFICE FRAME WIRER: CM RECEIVED MESSAGE FROM AISHA [facility], PT HAS BEEN DECLINED. PT HAS BEEN DECLINED FOR ASSISTED CARE FROM [facility] AND [facility]. CM WAITING ADMISSION DETERMINATIONS FROM [facility] AND [facility]. CM WAITING LEVEL 2 DONA SCREENING COMPLETION AND DETERMINATION. Brock Chavez CASE MANAGEMENT DCP- Discharge Planning Updated by [id number]: Brock Chavez on 02/17/18 2:[address] Patient Name: CHRISTINE NGUYEN Encounter No: [id number] : 1975 Primary Insurance: MEDICARE A & B Anticipated DC Date: Planned Disposition: Halfway Facility External Planned Provider: [facility], MEDICARE REHAB BED DCP follow-up note: CM COMPLETED DONA THAT CM STARTED ON 02-15-18, DOCTOR AND PT SIGNATURES WERE OBTAINED. CM MET WITH PT IN ROOM TO DISCUSS DISCHARGE PLANNING AND NEEDS. PT REPORTS SHE IS NOT ABLE TO CARE FOR HERSELF AND HER PARENTS, WHOM SHE WAS LIVING WITH, ARE NOT ABLE TO EITHER. PT WOULD LIKE PLACMENT AT [facility]. PT HAS TALKED TO MYLA OF [facility] WHO TOLD HER THAT IT DEPENDS ON IF THE DOCTOR WILL TAKE HER BACK THERE OR NOT. PT REPORTS SHE HAS BEEN TO [facility], [facility] AND [facility] FOR REHAB AND PROFESSOR OF HISTORICAL THEOLOGY CARE IN THE PAST. PT LEFT THE [facility] IN FEBRUARY OR MARCH OF THIS YEAR AND MOVED IN WITH HER PARENTS. PT'S FIRST CHOICE FOR REHAB AND PROFESSOR OF HISTORICAL THEOLOGY CARE IS [facility], SECOND CHOICE IS [facility]. PT WILL NOT CONSIDER [facility] AGAIN. CHOICE COMPLETED AND SIGNED. IMPORTANT MESSAGE FROM MEDICARE PROVIDED AND DISCUSSED. PT REPORTS THE LAST DONA THAT WAS DONE THEY HAD TO DO A LEVEL 2 SCREENING. CM CALLED [facility], , LEFT MESSAGE ASKING FOR RETURN CALL. CM FAXED REFERRAL TO [facility] AT [phone]. CM FAXED COMPLETED DONA SCREENING AND SUPPORTING DOCUMENTS TO [facility] AT [phone]. CM WAITING ADMISSION DETERMINATION FROM [facility] AND DONA SCREENING COMPLETION. Brock Chavez CASE MANAGEMENT Appended by Brock Chavez on 02/17/2018 9:57 CENTRAL OFFICE FRAME WIRER: CM RECEIVED CALL FROM [facility], , WHO INSTRUCTED CM TO SEND THE REFERRAL AND THEIR DOCTOR AND DIRECTOR WILL LOOK AT IT TO MAKE ADMISSION DETERMINATION. REFERRAL PREVIOUSLY FAXED TODAY TO [facility] AT [phone]. CM WAITING ADMISSION DETERMINATION FROM [facility] AND DONA SCREENING COMPLETION. Brock Chavez CASE MANAGEMENT Appended by Brock Chavez on 02/17/2018 15:44 CENTRAL OFFICE FRAME WIRER: CM RECEIVED DONA SCREENING RESPONSE, PT WILL REQUIRE LEVEL 2 SCREENING WHICH MAY TAKE UP TO 9 (NINE) BUSINESS DAYS TO COMPLETE. CM FAXED DONA DETERMINATION REQUIRING LEVEL 2 SCREEN TO [facility] AT [phone]. CM WAITING ADMISSION DETERMINATION FROM [facility] AND DONA LEVEL 2 SCREENING COMPLETION WHICH CAN TAKE UP TO 9 (NINE) BUSINESS DAYS. Brock Chavez CASE MANAGEMENT DCP- Discharge Planning Updated by [id number]: Misti Mccann on 02/12/18 5:[address] Patient Name: CHRISTINE NGUYEN Admission Status: ER Accout number: [id number] Admission Date: 02-11-2018 : 1975 Admission Diagnosis: Attending: DREW DUMONT Current LOS: 1 Anticipated DC Date: Planned Disposition: Halfway Facility Primary Insurance: MEDICARE A & B Discharge Planning Comments: CM spoke with patient at bedside. Patient states she knows she can't return to her home. She is totally dependent of all her ADLs she is can feed herself but that is about all. APS has been notified of case. Patient is requesting to discharge to [facility]. CM will contact [facility]. CM will fax records to [facility] for possible placement when stable. CM will continue to follow and assist with discharge planning / needs. Web Production Assistant: Misti VITAL - Discharge Planning Initial Assessment Updated by [id number]: Misti Mccann on 02/12/18 6:12 pm * Is the patient Alert and Oriented? Yes * PCP Dr. bueno * Pharmacy [facility] or [facility] * Preadmission Environment Home with Family * ADLs Total Dependent * Equipment Wheelchair * List name and contact numbers for known caregivers / representatives who currently or will assist patient after discharge: Meggan Carlson mother [phone] * Verbal permission to speak to the caregivers and representatives has been obtained from the patient. N/A * Community resources currently utilized None * Additional services required to return to the preadmission environment? Yes * Can the patient safely return to the preadmission environment? No * Has this patient been hospitalized within the prior 30 days at any hospital? No Coverage Notice Reviewer: [id number] Chavez Notice Issued Date-Time: 02/17/2018 8:10 Notice Type: IM Discharge Notice Notice Delivered To: Patient Relationship to Patient: Switchboard Manager Name: Delivery Method: HAND - Hand Delivered [place] Days: Prior Verbal Notification: Recipient Understood Notice: Yes Recipient Signature: Yes Med Rec Note Co-signed by Attending: Coverage Notice Comment: Reviewer: [id number] Chavez Notice Issued Date-Time: 02/17/2018 8:10 Notice Type: Patient Choice Letter Notice Delivered To: Patient Relationship to Patient: Switchboard Manager Name: Delivery Method: HAND - Hand Delivered [place] Days: Prior Verbal Notification: Recipient Understood Notice: Yes Recipient Signature: Yes Med Rec Note Co-signed by Attending: Coverage Notice Comment: 1- [facility] / 2- [facility] Reviewer: [id number] Sukumar Chavez Notice Issued Date-Time: 02/19/2018 9:30 Notice Type: Patient Choice Letter Notice Delivered To: Patient Relationship to Patient: Switchboard Manager Name: Delivery Method: HAND - Hand Delivered [place] Days: Prior Verbal Notification: Recipient Understood Notice: Yes Recipient Signature: Yes Med Rec Note Co-signed by Attending: Coverage Notice Comment: ANY [facility] EXCEPT: [facility]. Reviewer: [id number] Sukumar Chavez Notice Issued Date-Time: 02/26/2018 12:50 Notice Type: IM Discharge Notice Notice Delivered To: Patient Relationship to Patient: Switchboard Manager Name: Delivery Method: HAND - Hand Delivered [place] Days: Prior Verbal Notification: Recipient Understood Notice: Yes Recipient Signature: Yes Med Rec Note Co-signed by Attending: Coverage Notice Comment: Last DP export: 03/02/18 4:09 pm Patient Name: CHRISTINE NGUYEN Page [id number] at 1613 All edits/amendments must be made on the electronic document DICTATION DATE: 03/07/181611 AIR CONTROL/ANTI AIR WARFARE OFFICER: KAYODE 03/07/181611 RPT#: [id number] DC DATE: STATUS: ADM IN [facility] [address] [place] [address] END OF REPORT
--- NOTE | 2018-03-07 16:39 | NUR ---
FSBS 126. NO INSULIN PER SLIDING SCALE. MEDICATED FOR PAIN AND ANXIETY AT THIS TIME. NO DISTRESS.
--- NOTE | 2018-03-07 18:22 | MORECARE ---
CASE MANAGEMENT DISCHARGE SUMMARY PATIENT: CHRISTINE NGUYEN UNIT: [id number] ADM DATE: 02/11/18 AGE: 42 : [birth year] SEX: F ROOM/BED: D.1212 AUTHOR: ABBEY ALVA PHYSICIAN: REFERRING PHYSICIAN: DREW DUMONT MD DATE OF SERVICE: 03/07/18 Discharge Plan Patient Name: CHRISTINE NGUYEN Facility: [facility]:[place] : 1975 Planned Disposition: Custodial Facility Anticipated Discharge Date: 02/26/18 Discharge Date: Expected LOS: 15 Initial Reviewer: [id number] Initial Review Date: 02/12/2018 Generated: 03/07/18 7:21 pm Comments DCP- Discharge Planning Updated by [email or web address]: Chey Moreno on 03/07/18 5:[address] CONTACT INFORMATION FOR ADAMARIS NGUYEN SON [phone] OR [phone] DCP- Discharge Planning Updated by [id number]: Chey Moreno on 03/07/18 3:[address] LATE ENTRY 1530 PRIMARY NURSE ADVISED CM THAT THE PATIENT' SON, ADAMARIS NGUYEN, IS HERE FROM [place]. HE PLANS TO TAKE HIS MOTHER VIA CAR TO HIS HOME IN [place] THURSDAY THIS IS APPROXIMATELY AN EIGHT [address]IVE. CM REVIEWED NOTES. ADVISED THE SON IT APPEARS APS IS INVOLVED IN THE CASE. WILL NEED TO COMMUNICATE WITH APS. PATIENT CANNOT BE ISCHARGED WITHOUT THEIR RELEASE. ADVISED THE APS STAFF WOULD BE BACK IN THE OFFICE THURSDAY. HE PLANS TO BE IN EARLY AM TO SPEAK WITH DR DUMONT. CM ALSO ADVISED STAFF TO INFORM HIM OF PATIENT NEEDS. WOULD LIKELY BE A DIFFICULT TRIP. PATIENT ALSO WOULD NOT HAVE A PHYSICIAN IMMEDIATELY. HE WOULD NEED A COPY OF THE PATIENT'S CHART IF PLAN IS ALLOWED FOR AN ACCEPTING MD. APS WILL NEED TO BE NOTIFIED. DCP- Discharge Planning Updated by [id number]: Sylvia Silva on 03/02/18 4:[address] Patient Name: CHRISTINE NGUYEN Encounter No: [id number] : 1975 Primary Insurance: MEDICARE A & B Anticipated DC Date: 02-26-2018 Planned Disposition: Custodial Facility External Planned Provider: [facility] REHAB B[facility] DCP follow-up note: CM RECEIVED CALL FROM [facility] WHO ASKED FOR CM TO FAX DONA APPROVAL TO HER AND SHE WILL CHECK TO SEE IF PT'S BANK STATEMENTS HAVE BEEN RECEIVED BY FACILITY. CM FAXED DONA APPROVAL TO [facility] AT [phone]. PT HAS BEEN DECLINED FOR [facility] CARE AT [facility], [facility], [facility], [facility], [place] [facility], [facility] DONA SCREENING COMPLETED AND CLEARED FOR DETENTION FACILITY ENTRY.CM WAITING ADMISSION DETERMINATION FROM [facility] WHO IS WORKING ON MEDICAID FOR [facility] CARE, PT IS TO PROVIDE THREE MONTHS OF DETAILED BANK STATEMENTS. Brock Chavez, CASE MANAGEMENT Appended by Sylvia Silva on 03/02/2018 17:04 CARRIAGE FEEDER: CM SPOKE WITH PATIENT AND SHE STATES "SIMPLY PAYED" WHICH IS HER ONLY BANK STATEMENTS IS BEING EMAILED TO [facility]. DCP- Discharge Planning Updated by [id number]: Brock Chavez on 03/01/18 3:[address] Patient Name: CHRISTINE NGUYEN Encounter No: [id number] : 1975 Primary Insurance: MEDICARE A & B Anticipated DC Date: 02-26-2018 Planned Disposition: Custodial Facility External Planned Provider:[facility]ARE REHAB B[facility] DCP follow-up note: CM FAXED UPDATE TO [facility] AT [phone]. CM NOTIFIED PT. PT HAS BEEN DECLINED FOR [facility] CARE AT [facility], [facility], [facility], [facility], [place], [facility]. DONA SCREENING COMPLETED AND CLEARED FOR DETENTION FACILITY ENTRY.CM WAITING ADMISSION DETERMINATION FROM [facility] WHO IS WORKING ON MEDICAID FOR HOME HOSPICE RN CARE. Brock Chavez, CASE MANAGEMENT DCP- Discharge Planning Updated by [id number]: Brock Chavez on 02/26/18 12:[address] Patient Name: CHRISTINE NGUYEN Encounter No: [id number] : 1975 Primary Insurance: MEDICARE A & B Anticipated DC Date: 02-26-2018 Planned Disposition: Custodial Facility External Planned Provider: [facility] MED[facility]ARE REHAB B[facility] DCP follow-up note: CM RECEIVED DONA RESPONSE, PT IS CLEARED TO ENTER DETENTION BY [facility]. CM CALLED [facility], , NOTIFIED OF DONA CLEARANCE AND REQUESTED ADMISSION DETERMINATION. CM FAXED DONA CLEARANCE LETTER AND UPDATE TO [facility] AT [phone]. CM NOTIFIED PT, PROVIDED AND EXPLAINED IMPORTANT MESSAGE FROM MEDICARE. PT HAS BEEN DECLINED FOR HOME HOSPICE RN CARE AT [facility], [facility], [place], [facility]. DONA SCREENING COMPLETED AND CLEARED FOR DETENTION FACILITY ENTRY.CM WAITING ADMISSION DETERMINATION FROM [facility] WHO IS WORKING ON MEDICAID FOR HOME HOSPICE RN CARE. Brock Chavez CASE MANAGEMENT DCP- Discharge Planning Updated by [id number]: Brock Chavez on 02/24/18 10:[address] Patient Name: CHRISTINE NGUYEN Encounter No: [id number] : 1975 Primary Insurance: MEDICARE A & B Anticipated DC Date: Planned Disposition: Custodial Facility External Planned Provider: [facility] DCP follow-up note: CM RECEIVED CALL FROM [facility] OF [facility], THEY WILL VISIT WITH PT IN HOSPITAL TODAY TO ASSESS PT FOR ADMISSION. CM HAS NOT YET RECEIVED LEVEL 2 DONA DETERMINATION. PT HAS BEEN DECLINED FOR HOME HOSPICE RN CARE AT [facility], [facility], [facility], [place], [facility]. CM WAITING ADMISSION DETERMINATION FROM [facility]. CM WAITING LEVEL 2 DONA SCREENING COMPLETION AND DETERMINATION. TERRA Amato DCP- Discharge Planning Updated by [id number]: Brock Chavez on 02/22/18 2:[address] Patient Name: CHRISTINE NGUYEN Encounter No: [id number] : 1975 Primary Insurance: MEDICARE A & B Anticipated DC Date: Planned Disposition: Custodial Facility External Planned Provider: FIRST ACCEPTING FACILITY DCP follow-up note: CM RECEIVED CALL FROM CHETNA PT'S STEP FATHER WHO REPORTS HE CALLED [facility] AND THEY TOLD HIM THE REASON THEY CANNOT ACCEPT IS THAT PT'S HOME HOSPICE RN CARE MEDICAID WAS INACTIVE AND CM NEEDED TO FILE FOR [facility] CARE MEDICAID. CM EXPLAINED THAT THERE ARE OTHER FACTORS USED IN MAKING THEIR DECISION AND THAT THE USP, NOT CM, APPLIES FOR HOME HOSPICE RN CARE MEDICAID. CHETNA STATES HE AND PT WANT HER TO GO TO [facility]; CM EXPLAINED THAT THE FACILITY HAD SAID NO; CHETNA ASKED FOR CM TO CALL THEM BACK AND HE WILL DO THE SAME. CM CALLED [facility], , LEFT DETAILED MESSAGE ASKING FOR RETURN CALL. CM RECEIVED CALL FROM SYLVIA KAN [facility], SHE WILL VISIT WITH AND ASSESS PT FOR LEVEL 2 DONA SCREENING TODAY AFTER NOON. PT HAS BEEN DECLINED FOR HOME HOSPICE RN CARE FROM [facility] AND [facility]. CM WAITING ADMISSION DETERMINATIONS FROM [facility], [facility]. CM WAITING LEVEL 2 DONA SCREENING COMPLETION AND DETERMINATION. Brock Chavez, CASE MANAGEMENT Appended by Brock Chavez on 02/22/2018 15:16 CARRIAGE FEEDER: CM SPOKE TO DOR[facility]HE[facility] OF [facility], THEY WILL NOT ACCEPT PT. CM SPOKE TO [facility], THEY CANNOT MEET PT'S NEEDS. CM SPOKE TO [facility], THEY CANNOT TAKE PT. CM CALLED AND SPOKE TO [facility] WHO INFORMED CM THEY ARE STILL CONSIDERING PT FOR PLACEMENT AND WILL VISIT WITH PT ON 02-24-18. PT NOTIFIED OF ABOVE; PT CONTINUES TO DECLINE REFERRAL TO [facility] AND UNDERSTANDS IF [facility] DECLINES, CM WILL HAVE TO SEND REFERRAL OUTSIDE OF [place] FOR PLACEMENT CONSIDERATION. PT HAS BEEN DECLINED FOR HOME HOSPICE RN CARE AT [facility], [facility], [facility]. CM WAITING ADMISSION DETERMINATION FROM [facility]. CM WAITING LEVEL 2 DONA SCREENING COMPLETION AND DETERMINATION. Brock Chavez, CASE MANAGEMENT DCP- Discharge Planning Updated by [id number]: Brock Chavez on 02/19/18 3:[address] Patient Name: CHRISTINE NGUYEN Encounter No: [id number] : 1975 Primary Insurance: MEDICARE A & B Anticipated DC Date: Planned Disposition: Custodial Facility External Planned Provider: ANY ACCEPTING [place] [facility], MEDICARE REHAB BED DCP follow-up note: CM RECEIVED CALL FROM [facility], THEY WILL NOT ACCEPT DUE TO FINANCIAL CONCERNS. CM SPOKE TO DR. DUMONT AND PROVIDED UPDATE. CM SPOKE TO PT IN ROOM WHO WAS UPSET STATING SHE PAID THEM THE MONEY THAT WAS OWED AND THE ONLY USP SHE OWES MONEY TO IS [facility] WHICH SHE OWES $21,000. CM DISCUSSED NURSING FACILITY OPTIONS IN [place], PT ASKED THAT REFERRALS BE SENT TO ALL LOCAL [facility] EXCEPT [facility] AND [facility]. CHOICE LETTER COMPLETED. CM FAXED REFERRALS TO [facility], [facility], [facility]. CM WAITING ADMISSION DETERMINATIONS FROM [facility], [facility], [facility]. CM WAITING LEVEL 2 DONA SCREENING COMPLETION AND DETERMINATION. Brock Chavez CASE MANAGEMENT Appended by Brock Chavez on 02/19/2018 16:07 CARRIAGE FEEDER: CM RECEIVED CALL FROM PT WHO REPORTS THAT HER FATHER CALLED [facility] WHO INFORMED HIM THAT HER MEDICAID WAS INACTIVE. CM CALLED EDWIN OF [employer] [facility] [place] WHO CONFIRMED PT HAD [facility] CARE MEDICAID THAT ENDED. EDWIN INFORMED CM THAT THE USP WILL NEED TO REAPPLY FOR HOME HOSPICE RN CARE MEDICAID, SHE IS NOT ABLE TO DO THAT APPLICATION. PT NOTIFIED. CM RECEIVED CALL FROM [facility] WHO DECLINED PT. PT HAS BEEN DECLINED FOR [facility] CARE FROM [facility]. CM WAITING ADMISSION DETERMINATIONS FROM [facility], [facility], [facility]. CM WAITING LEVEL 2 DONA SCREENING COMPLETION AND DETERMINATION. Brock Chavez CASE MANAGEMENT Appended by Brock Chavez on 02/19/2018 16:55 CARRIAGE FEEDER: CM RECEIVED MESSAGE FROM [facility], PT HAS BEEN DECLINED. PT HAS BEEN DECLINED FOR [facility] CARE FROM [facility] AND [facility]. CM WAITING ADMISSION DETERMINATIONS FROM [facility], [facility]. CM WAITING LEVEL 2 DONA SCREENING COMPLETION AND DETERMINATION. TERRA Amato DCP- Discharge Planning Updated by [id number]: Brock Chavez on 02/17/18 2:[address] Patient Name: CHRISTINE NGUYEN Encounter No: [id number] : 1975 Primary Insurance: MEDICARE A & B Anticipated DC Date: Planned Disposition: Custodial Facility External Planned Provider: [facility], MEDICARE REHAB BED DCP follow-up note: CM COMPLETED DONA THAT CM STARTED ON 02-15-18, DOCTOR AND PT SIGNATURES WERE OBTAINED. CM MET WITH PT IN ROOM TO DISCUSS DISCHARGE PLANNING AND NEEDS. PT REPORTS SHE IS NOT ABLE TO CARE FOR HERSELF AND HER PARENTS, WHOM SHE WAS LIVING WITH, ARE NOT ABLE TO EITHER. PT WOULD LIKE PLACMENT AT [facility]. PT HAS TALKED TO [facility] WHO TOLD HER THAT IT DEPENDS ON IF THE DOCTOR WILL TAKE HER BACK THERE OR NOT. PT REPORTS SHE HAS BEEN TO [facility], [facility] AND [facility] FOR REHAB AND CHCF CARE IN THE PAST. PT LEFT THE [facility] IN FEBRUARY OR MARCH OF THIS YEAR AND MOVED IN WITH HER PARENTS. PT'S FIRST CHOICE FOR REHAB AND HOME HOSPICE RN CARE IS [facility], SECOND CHOICE IS THE [facility]. PT WILL NOT CONSIDER [facility] AGAIN. CHOICE COMPLETED AND SIGNED. IMPORTANT MESSAGE FROM MEDICARE PROVIDED AND DISCUSSED. PT REPORTS THE LAST DONA THAT WAS DONE THEY HAD TO DO A LEVEL 2 SCREENING. CM CALLED [facility], , LEFT MESSAGE ASKING FOR RETURN CALL. CM FAXED REFERRAL TO [facility] AT [phone]. CM FAXED COMPLETED DONA SCREENING AND SUPPORTING DOCUMENTS TO [facility] AT [phone]. CM WAITING ADMISSION DETERMINATION FROM [facility] AND DONA SCREENING COMPLETION. Brock Chavez, CASE MANAGEMENT Appended by Brock Chavez on 02/17/2018 9:57 CARRIAGE FEEDER: CM RECEIVED CALL FROM [facility], , WHO INSTRUCTED CM TO SEND THE REFERRAL AND THEIR DOCTOR AND DIRECTOR WILL LOOK AT IT TO MAKE ADMISSION DETERMINATION. REFERRAL PREVIOUSLY FAXED TODAY TO [facility] AT [phone]. CM WAITING ADMISSION DETERMINATION FROM [facility] AND DONA SCREENING COMPLETION. Brock Chavez CASE MANAGEMENT Appended by Brock Chavez on 02/17/2018 15:44 CARRIAGE FEEDER: CM RECEIVED DONA SCREENING RESPONSE, PT WILL REQUIRE LEVEL 2 SCREENING WHICH MAY TAKE UP TO 9 (NINE) BUSINESS DAYS TO COMPLETE. CM FAXED DONA DETERMINATION REQUIRING LEVEL 2 SCREEN TO [facility] AT [phone]. CM WAITING ADMISSION DETERMINATION FROM [facility] AND DONA LEVEL 2 SCREENING COMPLETION WHICH CAN TAKE UP TO 9 (NINE) BUSINESS DAYS. Brock Chavez CASE MANAGEMENT DCP- Discharge Planning Updated by [id number]: Misti Mccann on 02/12/18 5:[address] Patient Name: CHRISTINE NGUYEN Admission Status: ER Accout number: [id number] Admission Date: 02-11-2018 : 1975 Admission Diagnosis: Attending: DREW DUMONT Current LOS: 1 Anticipated DC Date: Planned Disposition: Custodial Facility Primary Insurance: MEDICARE A & B Discharge Planning Comments: CM spoke with patient at bedside. Patient states she knows she can't return to her home. She is totally dependent of all her ADLs she is can feed herself but that is about all. [facility] has been notified of case. Patient is requesting to discharge to [facility]. CM will contact [facility]. CM will fax records to [facility] for possible placement when stable. CM will continue to follow and assist with discharge planning / needs. [employer] C[employer] Machine: Misti VITAL - Discharge Planning Initial Assessment Updated by [email or web address]: Misti Mccann on 02/12/18 6:12 pm * Is the patient Alert and Oriented? Yes * PCP Dr. bueno * Pharmacy [place] [facility] * Preadmission Environment Home with Family * ADLs Total Dependent * Equipment Wheelchair * List name and contact numbers for known caregivers / representatives who currently or will assist patient after discharge: Meggan Carlson mother [phone] * Verbal permission to speak to the caregivers and representatives has been obtained from the patient. N/A * Community resources currently utilized None * Additional services required to return to the preadmission environment? Yes * Can the patient safely return to the preadmission environment? No * Has this patient been hospitalized within the prior 30 days at any hospital? No Coverage Notice Reviewer: [id number] Sukumar Chavez Notice Issued Date-Time: 02/17/2018 8:10 Notice Type: IM Discharge Notice Notice Delivered To: Patient Relationship to Patient: Material Attendant Name: Delivery Method: HAND - Hand Delivered Lash[place] Days: Prior Verbal Notification: Recipient Understood Notice: Yes Recipient Signature: Yes Med Rec Note Co-signed by Attending: Coverage Notice Comment: Reviewer: [id number] Sukumar Chavez Notice Issued Date-Time: 02/17/2018 8:10 Notice Type: Patient Choice Letter Notice Delivered To: Patient Relationship to Patient: Material Attendant Name: Delivery Method: HAND - Hand Delivered [place] Days: Prior Verbal Notification: Recipient Understood Notice: Yes Recipient Signature: Yes Med Rec Note Co-signed by Attending: Coverage Notice Comment: 1- [facility] Reviewer: [id number] Sukumar Chavez Notice Issued Date-Time: 02/19/2018 9:30 Notice Type: Patient Choice Letter Notice Delivered To: Patient Relationship to Patient: Material Attendant Name: Delivery Method: HAND - Hand Delivered [place] Days: Prior Verbal Notification: Recipient Understood Notice: Yes Recipient Signature: Yes Med Rec Note Co-signed by Attending: Coverage Notice Comment: ANY [facility] [place] EXCEPT: [place] [facility]. Reviewer: [id number] Sukumar Chavez Notice Issued Date-Time: 02/26/2018 12:50 Notice Type: IM Discharge Notice Notice Delivered To: Patient Relationship to Patient: Material Attendant Name: Delivery Method: HAND - Hand Delivered [place] Days: Prior Verbal Notification: Recipient Understood Notice: Yes Recipient Signature: Yes Med Rec Note Co-signed by Attending: Coverage Notice Comment: Last DP export: 03/07/18 3:13 p Patient Name: CHRISTINE NGUYEN Page 90050 at 1822 All edits/amendments must be made on the electronic document DICTATION DATE: 03/07/181820 [employer]DLE SCHOOL LIBRARIAN: KAYODE 03/07/181820 RPT#: [id number] DC DATE: STATUS: ADM IN [facility] [address] [place] [address] END OF REPORT
[2018-03-07 19:00] VITALS: BP 103/58
--- NOTE | 2018-03-07 19:35 | NUR ---
RECEIVED REPORT, ASSUMED CARE, A&O, DENIES NEEDS, NO S/S OF DISTRESS NOTED, CALL LIGHT IN REACH, BED LOWEST POSITION, 1ST STEP OVERLAY ON, REQUESTING BATH WILL CONTINUE POC
--- NOTE | 2018-03-07 23:30 | NUR ---
REFUSED [facility], REQUESTED TO BE LEFT ALONE WANTING TO SLEEP MUCH POSSIBLE BEFORE HER TRIP TO [place] TOMORROW
[2018-03-08 03:00] VITALS: BP 121/48
--- NOTE | 2018-03-08 03:19 | NUR ---
I AGREE WITH REMELT FURNACE EXPEDITER ASSESSMENT. WILL CONTINUE TO MONITOR.
[2018-03-08 08:00] VITALS: BP 98/61
--- NOTE | 2018-03-08 10:39 | MORECARE ---
CASE MANAGEMENT DISCHARGE SUMMARY PATIENT: CHRISTINE NGUYEN UNIT: [id number] ADM DATE: 02/11/18 AGE: 42 : [birth year] SEX: F ROOM/BED: D.1212 AUTHOR: ABBEY ALVA PHYSICIAN: REFERRING PHYSICIAN: DREW DUMONT MD DATE OF SERVICE: 03/08/18 Discharge Plan Patient Name: CHRISTINE NGUYEN Facility: [facility]:[place] : 1975 Planned Disposition: Assisted Facility Anticipated Discharge Date: 02/26/18 Discharge Date: Expected LOS: 15 Initial Reviewer: [id number] Initial Review Date: 02/12/2018 Generated: 03/08/18 11:38 am Comments DCP- Discharge Planning Updated by [id number]: Chey Moreno on 03/07/18 5:[address] CONTACT INFORMATION FOR ADAMARIS NGUYEN SON [phone] OR [phone] DCP- Discharge Planning Updated by [id number]: Chey Moreno on 03/07/18 3:[address] LATE ENTRY 1530 PRIMARY NURSE ADVISED CM THAT THE PATIENT' SON, ADAMARIS NGUYEN, IS HERE FROM [place]. HE PLANS TO TAKE HIS MOTHER VIA CAR TO HIS HOME IN [place] THURSDAY THIS IS APPROXIMATELY AN EIGHT HOUR [address]IVE. CM REVIEWED NOTES. ADVISED THE SON IT APPEARS APS IS INVOLVED IN THE CASE. WILL NEED TO COMMUNICATE WITH APS. PATIENT CANNOT BE ISCHARGED WITHOUT THEIR RELEASE. ADVISED THE APS STAFF WOULD BE BACK IN THE OFFICE THURSDAY. HE PLANS TO BE IN EARLY AM TO SPEAK WITH DR DUMONT. CM ALSO ADVISED STAFF TO INFORM HIM OF PATIENT NEEDS. WOULD LIKELY BE A DIFFICULT TRIP. PATIENT ALSO WOULD NOT HAVE A PHYSICIAN IMMEDIATELY. HE WOULD NEED A COPY OF THE PATIENT'S CHART IF PLAN IS ALLOWED FOR AN ACCEPTING MD. APS WILL NEED TO BE NOTIFIED. DCP- Discharge Planning Updated by [id number]: Sylvia Silva on 03/02/18 4:[address] Patient Name: CHRISTINE NGUYEN Encounter No: [id number] : 1975 Primary Insurance: MEDICARE A & B Anticipated DC Date: 02-26-2018 Planned Disposition: Assisted Facility External Planned Provider: [facility], MED[facility]ARE REHAB B[facility] DCP follow-up note: CM RECEIVED CALL FROM [facility] WHO ASKED FOR CM TO FAX DONA APPROVAL TO HER AND SHE WILL CHECK TO SEE IF PT'S BANK STATEMENTS HAVE BEEN RECEIVED BY FACILITY. CM FAXED DONA APPROVAL TO [facility] AT [phone]. PT HAS BEEN DECLINED FOR CLUTCH MECHANIC CARE AT [facility], [facility], [facility], [facility], [facility], [facility] AND [facility]. DONA SCREENING COMPLETED AND CLEARED FOR [facility] FACILITY ENTRY.CM WAITING ADMISSION DETERMINATION FROM [facility] WHO IS WORKING ON MEDICAID FOR [facility], PT IS TO PROVIDE THREE MONTHS OF DETAILED BANK STATEMENTS. Brock Chavez, CASE MANAGEMENT Appended by Sylvia Silva on 03/02/2018 17:04 CLOTH PACKER: CM SPOKE WITH PATIENT AND SHE STATES "SIMPLY PAYED" WHICH IS HER ONLY BANK STATEMENTS IS BEING EMAILED TO [facility]. DCP- Discharge Planning Updated by [id number]: Brock Cahvez on 03/01/18 3:[address] Patient Name: CHRISTINE NGUYEN Encounter No: [id number] : 1975 Primary Insurance: MEDICARE A & B Anticipated DC Date: 02-26-2018 Planned Disposition: Assisted Facility External Planned Provider:[facility], [facility]ICARE REHAB B[facility] DCP follow-up note: CM FAXED UPDATE TO [facility] AT [phone]. CM NOTIFIED PT. PT HAS BEEN DECLINED FOR CLUTCH MECHANIC CARE AT [facility], [facility], [facility], [facility], [facility], [facility] AND [facility] DONA SCREENING COMPLETED AND CLEARED FOR [facility] FACILITY ENTRY.CM WAITING ADMISSION DETERMINATION FROM [facility] WHO IS WORKING ON MEDICAID FOR CLUTCH MECHANIC CARE. Brock Chavez, CASE MANAGEMENT DCP- Discharge Planning Updated by [id number]: Brock Chavez on 02/26/18 12:[address] Patient Name: CHRISTINE NGUYEN Encounter No: [id number] : 1975 Primary Insurance: MEDICARE A & B Anticipated DC Date: 02-26-2018 Planned Disposition: Assisted Facility External Planned Provider: [facility], MEDICARE REHAB BED DCP follow-up note: CM RECEIVED DONA RESPONSE, PT IS CLEARED TO ENTER [facility] BY [facility]. CM CALLED [facility], , NOTIFIED OF DONA CLEARANCE AND REQUESTED ADMISSION DETERMINATION. CM FAXED DONA CLEARANCE LETTER AND UPDATE TO [facility] AT [phone]. CM NOTIFIED PT, PROVIDED AND EXPLAINED IMPORTANT MESSAGE FROM MEDICARE. PT HAS BEEN DECLINED FOR CLUTCH MECHANIC CARE AT [facility], [facility], [facility], [facility]. DONA SCREENING COMPLETED AND CLEARED FOR [facility] FACILITY ENTRY.CM WAITING ADMISSION DETERMINATION FROM [facility] WHO IS WORKING ON MEDICAID FOR CLUTCH MECHANIC CARE. Brock Chavez CASE MANAGEMENT DCP- Discharge Planning Updated by [id number]: Brock Chavez on 02/24/18 10:[address] Patient Name: CHRISTINE NGUYEN Encounter No: [id number] : 1975 Primary Insurance: MEDICARE A & B Anticipated DC Date: Planned Disposition: Assisted Facility External Planned Provider: [facility] DCP follow-up note: CM RECEIVED CALL FROM SELVIN OF [facility], THEY WILL VISIT WITH PT IN HOSPITAL TODAY TO ASSESS PT FOR ADMISSION. CM HAS NOT YET RECEIVED LEVEL 2 DONA DETERMINATION. PT HAS BEEN DECLINED FOR CLUTCH MECHANIC CARE AT [facility], [facility], [facility], [facility], [facility]. CM WAITING ADMISSION DETERMINATION FROM [facility]. CM WAITING LEVEL 2 DONA SCREENING COMPLETION AND DETERMINATION. TERRA Amato DCP- Discharge Planning Updated by [id number]: Brock Chavez on 02/22/18 2:[address] Patient Name: CHRISTINE NGUYEN Encounter No: [id number] : 1975 Primary Insurance: MEDICARE A & B Anticipated DC Date: Planned Disposition: Assisted Facility External Planned Provider: FIRST ACCEPTING FACILITY DCP follow-up note: CM RECEIVED CALL FROM CHETNA PT'S STEP FATHER WHO REPORTS HE CALLED [facility] AND THEY TOLD HIM THE REASON THEY CANNOT ACCEPT IS THAT PT'S [facility] MEDICAID WAS INACTIVE AND CM NEEDED TO FILE FOR [facility] MEDICAID. CM EXPLAINED THAT THERE ARE OTHER FACTORS USED IN MAKING THEIR DECISION AND THAT THE FPC, NOT CM, APPLIES FOR CLUTCH MECHANIC CARE MEDICAID. CHETNA STATES HE AND PT WANT HER TO GO TO [facility]; CM EXPLAINED THAT THE FACILITY HAD SAID NO; CHETNA ASKED FOR CM TO CALL THEM BACK AND HE WILL DO THE SAME. CM CALLED [facility], , LEFT DETAILED MESSAGE ASKING FOR RETURN CALL. CM RECEIVED CALL FROM SYLVIA [facility], SHE WILL VISIT WITH AND ASSESS PT FOR LEVEL 2 DONA SCREENING TODAY AFTER NOON. PT HAS BEEN DECLINED FOR CLUTCH MECHANIC CARE FROM [facility] AND [facility]. CM WAITING ADMISSION DETERMINATIONS FROM [facility], [facility] AND [facility]. CM WAITING LEVEL 2 DONA SCREENING COMPLETION AND DETERMINATION. Brock Chavez, CASE MANAGEMENT Appended by Brock Chavez on 02/22/2018 15:16 CLOTH PACKER: CM SPOKE TO DOROTHEA OF [facility], THEY WILL NOT ACCEPT PT. CM SPOKE TO [facility], THEY CANNOT MEET PT'S NEEDS. CM SPOKE TO NATHALIE OF [facility], THEY CANNOT TAKE PT. CM CALLED AND SPOKE TO [facility] WHO INFORMED CM THEY ARE STILL CONSIDERING PT FOR PLACEMENT AND WILL VISIT WITH PT ON 02-24-18. PT NOTIFIED OF ABOVE; PT CONTINUES TO DECLINE REFERRAL TO [facility] AND UNDERSTANDS IF [facility] DECLINES, CM WILL HAVE TO SEND REFERRAL OUTSIDE OF [place] FOR PLACEMENT CONSIDERATION. PT HAS BEEN DECLINED FOR CLUTCH MECHANIC CARE AT [facility], [facility], [facility] AND [facility]. CM WAITING ADMISSION DETERMINATION FROM [facility]. CM WAITING LEVEL 2 DONA SCREENING COMPLETION AND DETERMINATION. Brock Chavez, CASE MANAGEMENT DCP- Discharge Planning Updated by [id number]: Brock Chavez on 02/19/18 3:[address] Patient Name: CHRISTINE NGUYEN Encounter No: [id number] : 1975 Primary Insurance: MEDICARE A & B Anticipated DC Date: Planned Disposition: Assisted Facility External Planned Provider: ANY ACCEPTING [place] [facility], MEDICARE REHAB BED DCP follow-up note: CM RECEIVED CALL FROM [facility], THEY WILL NOT ACCEPT DUE TO FINANCIAL CONCERNS. CM SPOKE TO DR. DUMONT AND PROVIDED UPDATE. CM SPOKE TO PT IN ROOM WHO WAS UPSET STATING SHE PAID THEM THE MONEY THAT WAS OWED AND THE ONLY FPC SHE OWES MONEY TO IS [facility] WHICH SHE OWES $21,000. CM DISCUSSED NURSING FACILITY OPTIONS IN [place], PT ASKED THAT REFERRALS BE SENT TO ALL LOCAL [facility] EXCEPT [facility] AND [facility]. CHOICE LETTER COMPLETED. CM FAXED REFERRALS TO [facility], [facility], [facility] AND [facility]. CM WAITING ADMISSION DETERMINATIONS FROM [facility], [facility], [facility] AND [facility]. CM WAITING LEVEL 2 DONA SCREENING COMPLETION AND DETERMINATION. Brock Chavez CASE MANAGEMENT Appended by Brock Chavez on 02/19/2018 16:07 CLOTH PACKER: CM RECEIVED CALL FROM PT WHO REPORTS THAT HER FATHER CALLED [facility] WHO INFORMED HIM THAT HER MEDICAID WAS INACTIVE. CM CALLED EDWIN OF [facility] WHO CONFIRMED PT HAD CLUTCH MECHANIC CARE MEDICAID THAT ENDED. EDWIN INFORMED CM THAT THE FPC WILL NEED TO REAPPLY FOR CLUTCH MECHANIC CARE MEDICAID, SHE IS NOT ABLE TO DO THAT APPLICATION. PT NOTIFIED. CM RECEIVED CALL FROM [facility] WHO DECLINED PT. PT HAS BEEN DECLINED FOR [facility] FROM [facility]. CM WAITING ADMISSION DETERMINATIONS FROM [facility], [facility], [facility] AND [facility]. CM WAITING LEVEL 2 DONA SCREENING COMPLETION AND DETERMINATION. Brock Chavez CASE MANAGEMENT Appended by Brock Chavez on 02/19/2018 16:55 CLOTH PACKER: CM RECEIVED MESSAGE FROM [facility], PT HAS BEEN DECLINED. PT HAS BEEN DECLINED FOR [facility] FROM [facility] AND [facility]. CM WAITING ADMISSION DETERMINATIONS FROM [facility], [facility] AND [facility]. CM WAITING LEVEL 2 DONA SCREENING COMPLETION AND DETERMINATION. TERRA Amato DCP- Discharge Planning Updated by [id number]: Brock Chavez on 02/17/18 2:[address] Patient Name: CHRISTINE NGUYEN Encounter No: [id number] : 1975 Primary Insurance: MEDICARE A & B Anticipated DC Date: Planned Disposition: Assisted Facility External Planned Provider: [facility], MEDICARE REHAB BED DCP follow-up note: CM COMPLETED DONA THAT CM STARTED ON 02-15-18, DOCTOR AND PT SIGNATURES WERE OBTAINED. CM MET WITH PT IN ROOM TO DISCUSS DISCHARGE PLANNING AND NEEDS. PT REPORTS SHE IS NOT ABLE TO CARE FOR HERSELF AND HER PARENTS, WHOM SHE WAS LIVING WITH, ARE NOT ABLE TO EITHER. PT WOULD LIKE PLACMENT AT [facility]. PT HAS TALKED TO [facility] WHO TOLD HER THAT IT DEPENDS ON IF THE DOCTOR WILL TAKE HER BACK THERE OR NOT. PT REPORTS SHE HAS BEEN TO [facility], [facility] AND [facility] FOR REHAB AND [facility] IN THE PAST. PT LEFT THE [facility] IN FEBRUARY OR MARCH OF THIS YEAR AND MOVED IN WITH HER PARENTS. PT'S FIRST CHOICE FOR REHAB AND CLUTCH MECHANIC CARE IS [facility], SECOND CHOICE IS THE [facility]. PT WILL NOT CONSIDER [facility] AGAIN. CHOICE COMPLETED AND SIGNED. IMPORTANT MESSAGE FROM MEDICARE PROVIDED AND DISCUSSED. PT REPORTS THE LAST DONA THAT WAS DONE THEY HAD TO DO A LEVEL 2 SCREENING. CM CALLED [facility], , LEFT MESSAGE ASKING FOR RETURN CALL. CM FAXED REFERRAL TO [facility] AT [phone]. CM FAXED COMPLETED DONA SCREENING AND SUPPORTING DOCUMENTS TO [facility] AT [phone]. CM WAITING ADMISSION DETERMINATION FROM [facility] AND DONA SCREENING COMPLETION. Brock Chavez, CASE MANAGEMENT Appended by Brock Chavez on 02/17/2018 9:57 CLOTH PACKER: CM RECEIVED CALL FROM [facility], , WHO INSTRUCTED CM TO SEND THE REFERRAL AND THEIR DOCTOR AND DIRECTOR WILL LOOK AT IT TO MAKE ADMISSION DETERMINATION. REFERRAL PREVIOUSLY FAXED TODAY TO [facility] AT [phone]. CM WAITING ADMISSION DETERMINATION FROM [facility] AND DONA SCREENING COMPLETION. Brock Chavez CASE MANAGEMENT Appended by Brock Chavez on 02/17/2018 15:44 CLOTH PACKER: CM RECEIVED DONA SCREENING RESPONSE, PT WILL REQUIRE LEVEL 2 SCREENING WHICH MAY TAKE UP TO 9 (NINE) BUSINESS DAYS TO COMPLETE. CM FAXED DONA DETERMINATION REQUIRING LEVEL 2 SCREEN TO [facility] AT [phone]. CM WAITING ADMISSION DETERMINATION FROM [facility] AND DONA LEVEL 2 SCREENING COMPLETION WHICH CAN TAKE UP TO 9 (NINE) BUSINESS DAYS. Brock Chavez CASE MANAGEMENT DCP- Discharge Planning Updated by [id number]: Misti Mccann on 02/12/18 5:[address] Patient Name: CHRISTINE NGUYEN Admission Status: ER Accout number: [id number] Admission Date: 02-11-2018 : 1975 Admission Diagnosis: Attending: DREW DUMONT Current LOS: 1 Anticipated DC Date: Planned Disposition: Assisted Facility Primary Insurance: MEDICARE A & B Discharge Planning Comments: CM spoke with patient at bedside. Patient states she knows she can't return to her home. She is totally dependent of all her ADLs she is can feed herself but that is about all. [facility] has been notified of case. Patient is requesting to discharge to [facility]. CM will contact [facility]. CM will fax records to [facility] for possible placement when stable. CM will continue to follow and assist with discharge planning / needs. [employer]rm Dynamics Developer: Misti VITAL - Discharge Planning Initial Assessment Updated by [id number]: Misti Mccann on 02/12/18 6:12 pm * Is the patient Alert and Oriented? Yes * PCP Dr. bueno * Pharmacy [place] or [place] [facility] * Preadmission Environment Home with Family * ADLs Total Dependent * Equipment Wheelchair * List name and contact numbers for known caregivers / representatives who currently or will assist patient after discharge: Meggan Carlson mother [phone] * Verbal permission to speak to the caregivers and representatives has been obtained from the patient. N/A * Community resources currently utilized None * Additional services required to return to the preadmission environment? Yes * Can the patient safely return to the preadmission environment? No * Has this patient been hospitalized within the prior 30 days at any hospital? No External Providers [facility] Next Contact Date: Service Request Date: Service Type: Resolution: Reviewer: Comments: Coverage Notice Reviewer: [id number] Sukumar Chavez Notice Issued Date-Time: 02/17/2018 8:10 Notice Type: IM Discharge Notice Notice Delivered To: Patient Relationship to Patient: Senior Data Developer Name: Delivery Method: HAND - Hand Delivered [place] Days: Prior Verbal Notification: Recipient Understood Notice: Yes Recipient Signature: Yes Med Rec Note Co-signed by Attending: Coverage Notice Comment: Reviewer: [id number] Sukumar Chavez Notice Issued Date-Time: 02/17/2018 8:10 Notice Type: Patient Choice Letter Notice Delivered To: Patient Relationship to Patient: Senior Data Developer Name: Delivery Method: HAND - Hand Delivered [place] Days: Prior Verbal Notification: Recipient Understood Notice: Yes Recipient Signature: Yes Med Rec Note Co-signed by Attending: Coverage Notice Comment: 1- [facility] / 2- PASCUAL [facility]A Reviewer: [id number] Sukumar Chavez Notice Issued Date-Time: 02/19/2018 9:30 Notice Type: Patient Choice Letter Notice Delivered To: Patient Relationship to Patient: Senior Data Developer Name: Delivery Method: HAND - Hand Delivered [place] Days: Prior Verbal Notification: Recipient Understood Notice: Yes Recipient Signature: Yes Med Rec Note Co-signed by Attending: Coverage Notice Comment: ANY [place] NUSING HOME EXCEPT: [facility] OR [facility]. Reviewer: [id number] Sukumar Chavez Notice Issued Date-Time: 02/26/2018 12:50 Notice Type: IM Discharge Notice Notice Delivered To: Patient Relationship to Patient: Senior Data Developer Name: Delivery Method: HAND - Hand Delivered [place] Days: Prior Verbal Notification: Recipient Understood Notice: Yes Recipient Signature: Yes Med Rec Note Co-signed by Attending: Coverage Notice Comment: Last DP export: 03/07/18 5:21 p Patient Name: CHRISTINE NGUYEN Page [id number] at 1039 All edits/amendments must be made on the electronic document DICTATION DATE: 03/08/18 1038 PILATES COORDINATOR: KAYODE 03/08/18 1038 RPT#: [id number] DC DATE: STATUS: ADM IN [facility] [address] [place] [address] END OF REPORT
--- NOTE | 2018-03-08 11:17 | MORECARE ---
CASE MANAGEMENT DISCHARGE SUMMARY PATIENT: CHRISTINE NGUYEN UNIT: [id number] ADM DATE: 02/11/18 AGE: 42 : 73 SEX: F ROOM/BED: D.1212 AUTHOR: ABBEY ALVA PHYSICIAN: REFERRING PHYSICIAN: DREW WANG MD DATE OF SERVICE: 03/08/18 Discharge Plan Patient Name: CHRISTINE NGUYEN Facility: [facility]:[place] : 1975 Planned Disposition: Correction Facility Anticipated Discharge Date: 02/26/18 Discharge Date: Expected LOS: 15 Initial Reviewer: [id number] Initial Review Date: 02/12/2018 Generated: 03/08/18 12:17 pm Comments DCP- Discharge Planning Updated by [id number]: Erum Ray on 03/08/18 10:[address] CM received message from Dr. Wang to set up patient's DME as requested to facilitate discharge for today. CM met with patient and family. Patient requesting wheelchair, (states she got one from [employer] in 2016 and it is falling apart) BSC, and Shower Chair. CM called [facility] regarding equipment. CM was informed that patient's Medicaid 01/26/18. Patient will be responsible for 20% copay on wheelchair for 13 month rental = $85.00 and BSC 20% copay $18.00. Shower Chair is not covered by Medicare and will cost patient $59.99. Patient stated she will order Shower Chair form [employer]. States she will pay the $85.00 copay for wheelchair and $18.00 copay for BSC. CM faxed records to [facility] as requested. Awaiting insurance auth. CM called APS regarding case # [id number] to inform outsole caser of plans to discharge patient home with son today. Left Message for Sylvia Tyler at [phone]. Awaiting return call. CM will continue to follow and assist as needed with discharge planning / needs. DCP- Discharge Planning Updated by [id number]: Chey Moreno on 03/07/18 5:[address] CONTACT INFORMATION FOR ADAMARIS NGUYEN, SON [phone] OR [phone] DCP- Discharge Planning Updated by [id number]: Chey Moreno on 03/07/18 3:[address] LATE ENTRY 1530 PRIMARY NURSE ADVISED CM THAT THE PATIENT' SON, ADAMARIS NGUYEN, IS HERE FROM [place]. HE PLANS TO TAKE HIS MOTHER VIA CAR TO HIS HOME IN [place] THURSDAY THIS IS APPROXIMATELY AN EIGHT HOUR DRIVE. CM REVIEWED NOTES. ADVISED THE SON IT APPEARS APS IS INVOLVED IN THE CASE. WILL NEED TO COMMUNICATE WITH APS. PATIENT CANNOT BE ISCHARGED WITHOUT THEIR RELEASE. ADVISED THE APS STAFF WOULD BE BACK IN THE OFFICE THURSDAY. HE PLANS TO BE IN EARLY AM TO SPEAK WITH DR WANG. CM ALSO ADVISED STAFF TO INFORM HIM OF PATIENT NEEDS. WOULD LIKELY BE A DIFFICULT TRIP. PATIENT ALSO WOULD NOT HAVE A PHYSICIAN IMMEDIATELY. HE WOULD NEED A COPY OF THE PATIENT'S CHART IF PLAN IS ALLOWED FOR AN ACCEPTING MD. APS WILL NEED TO BE NOTIFIED. DCP- Discharge Planning Updated by [id number]: Sylvia Silva on 03/02/18 4:[address] Patient Name: CHRISTINE NGUYEN Encounter No: [id number] : 1975 Primary Insurance: MEDICARE A & B Anticipated DC Date: 02-26-2018 Planned Disposition: Correction Facility External Planned Provider: [facility], MEDICARE REHAB BED DCP follow-up note: CM RECEIVED CALL FROM SELVIN KAN [facility] WHO ASKED FOR CM TO FAX DONA APPROVAL TO HER AND SHE WILL CHECK TO SEE IF PT'S BANK STATEMENTS HAVE BEEN RECEIVED BY FACILITY. CM FAXED DONA APPROVAL TO [facility] AT [phone]. PT HAS BEEN DECLINED FOR [facility] CARE AT [facility], [facility], [facility], [facility] AND [facility]. DONA SCREENING COMPLETED AND CLEARED FOR [facility] FACILITY ENTRY.CM WAITING ADMISSION DETERMINATION FROM [facility] WHO IS WORKING ON MEDICAID FOR [facility] CARE, PT IS TO PROVIDE THREE MONTHS OF DETAILED BANK STATEMENTS. Brock Chavez, CASE MANAGEMENT Appended by Sylvia Silva on 03/02/2018 17:04 ANIMAL STUNNER: CM SPOKE WITH PATIENT AND SHE STATES "SIMPLY PAYED" WHICH IS HER ONLY BANK STATEMENTS IS BEING EMAILED TO [facility]. DCP- Discharge Planning Updated by [id number]: Brock Chavez on 03/01/18 3:[address] Patient Name: CHRISTINE NGUYEN Encounter No: [id number] : 1975 Primary Insurance: MEDICARE A & B Anticipated DC Date: 02-26-2018 Planned Disposition: Correction Facility External Planned Provider:[facility], MEDICARE REHAB BED DCP follow-up note: CM FAXED UPDATE TO [facility] AT [phone]. CM NOTIFIED PT. PT HAS BEEN DECLINED FOR PRODUCT MANAGEMENT INTERN CARE AT [facility], [facility], [facility], [facility]. DONA SCREENING COMPLETED AND CLEARED FOR [facility] FACILITY ENTRY.CM WAITING ADMISSION DETERMINATION FROM [facility] WHO IS WORKING ON MEDICAID FOR PRODUCT MANAGEMENT INTERN CARE. TERRA Amato DCP- Discharge Planning Updated by [id number]: Brock Chavez on 02/26/18 12:[address] Patient Name: CHRISTINE NGUYEN Encounter No: [id number] : 1975 Primary Insurance: MEDICARE A & B Anticipated DC Date: 02-26-2018 Planned Disposition: Correction Facility External Planned Provider: [facility], MEDICARE REHAB BED DCP follow-up note: CM RECEIVED DONA RESPONSE, PT IS CLEARED TO ENTER [facility] BY [facility]. CM CALLED [facility], , NOTIFIED OF DONA CLEARANCE AND REQUESTED ADMISSION DETERMINATION. CM FAXED DONA CLEARANCE LETTER AND UPDATE TO [facility] AT [phone]. CM NOTIFIED PT, PROVIDED AND EXPLAINED IMPORTANT MESSAGE FROM MEDICARE. PT HAS BEEN DECLINED FOR [facility] CARE AT [facility], [facility], [facility], [facility]. DONA SCREENING COMPLETED AND CLEARED FOR [facility] FACILITY ENTRY.CM WAITING ADMISSION DETERMINATION FROM [facility] WHO IS WORKING ON MEDICAID FOR PRODUCT MANAGEMENT INTERN CARE. TERRA Amato DCP- Discharge Planning Updated by [id number]: Brock Chavez on 02/24/18 10:[address] Patient Name: CHRISTINE NGUYEN Encounter No: [id number] : 1975 Primary Insurance: MEDICARE A & B Anticipated DC Date: Planned Disposition: Correction Facility External Planned Provider: [facility], MEDICARE REHAB BED DCP follow-up note: CM RECEIVED CALL FROM SELVIN [facility], THEY WILL VISIT WITH PT IN HOSPITAL TODAY TO ASSESS PT FOR ADMISSION. CM HAS NOT YET RECEIVED LEVEL 2 [facility] DETERMINATION. PT HAS BEEN DECLINED FOR [facility] CARE AT [facility], [facility], [facility] AND [facility]. CM WAITING ADMISSION DETERMINATION FROM [facility]. CM WAITING LEVEL 2 DONA SCREENING COMPLETION AND DETERMINATION. Brock Chavez, CASE MANAGEMENT DCP- Discharge Planning Updated by [id number]: Brock Chavez on 02/22/18 2:[address] Patient Name: CHRISTINE NGUYEN Encounter No: [id number] : 1975 Primary Insurance: MEDICARE A & B Anticipated DC Date: Planned Disposition: Correction Facility External Planned Provider: FIRST ACCEPTING FACILITY DCP follow-up note: CM RECEIVED CALL FROM CHETNA, PT'S STEP FATHER WHO REPORTS HE CALLED [facility] AND THEY TOLD HIM THE REASON THEY CANNOT ACCEPT IS THAT PT'S PRODUCT MANAGEMENT INTERN CARE MEDICAID WAS INACTIVE AND CM NEEDED TO FILE FOR [facility] CARE MEDICAID. CM EXPLAINED THAT THERE ARE OTHER FACTORS USED IN MAKING THEIR DECISION AND THAT THE JAIL, NOT CM, APPLIES FOR PRODUCT MANAGEMENT INTERN CARE MEDICAID. CHETNA STATES HE AND PT WANT HER TO GO TO [facility]; CM EXPLAINED THAT THE FACILITY HAD SAID NO; CHETNA ASKED FOR CM TO CALL THEM BACK AND HE WILL DO THE SAME. CM CALLED MARIXA OF [facility], , LEFT DETAILED MESSAGE ASKING FOR RETURN CALL. CM RECEIVED CALL FROM SYLVIA KAN [facility], SHE WILL VISIT WITH AND ASSESS PT FOR LEVEL 2 DONA SCREENING TODAY AFTER NOON. PT HAS BEEN DECLINED FOR [facility] CARE FROM [facility], [facility] AND [facility]. CM WAITING ADMISSION DETERMINATIONS FROM [facility], [facility] AND [facility]. CM WAITING LEVEL 2 DONA SCREENING COMPLETION AND DETERMINATION. Brock Chavez, CASE MANAGEMENT Appended by Brock Chavez on 02/22/2018 15:16 ANIMAL STUNNER: CM SPOKE TO DOROTHEA OF [facility], THEY WILL NOT ACCEPT PT. CM SPOKE TO SRINIVAS OF [facility], THEY CANNOT MEET PT'S NEEDS. CM SPOKE TO NATHALIE OF [facility], THEY CANNOT TAKE PT. CM CALLED AND SPOKE TO [facility]Y [facility] WHO INFORMED CM THEY ARE STILL CONSIDERING PT FOR PLACEMENT AND WILL VISIT WITH PT ON 02-24-18. PT NOTIFIED OF ABOVE; PT CONTINUES TO DECLINE REFERRAL TO [facility] AND UNDERSTANDS IF [facility] DECLINES, CM WILL HAVE TO SEND REFERRAL OUTSIDE OF [place] FOR PLACEMENT CONSIDERATION. PT HAS BEEN DECLINED FOR PRODUCT MANAGEMENT INTERN CARE AT [facility], [facility], [facility], [facility], [facility]. CM WAITING ADMISSION DETERMINATION FROM [facility]. CM WAITING LEVEL 2 DONA SCREENING COMPLETION AND DETERMINATION. Brock Chavez CASE MANAGEMENT DCP- Discharge Planning Updated by [id number]: Brock Chavez on 02/19/18 3:[address] Patient Name: CHRISTINE NGUYEN Encounter No: [id number] : 1975 Primary Insurance: MEDICARE A & B Anticipated DC Date: Planned Disposition: Correction Facility External Planned Provider: ANY ACCEPTING [place] [facility], MEDICARE REHAB BED DCP follow-up note: CM RECEIVED CALL FROM [facility], THEY WILL NOT ACCEPT DUE TO FINANCIAL CONCERNS. CM SPOKE TO DR. WANG AND PROVIDED UPDATE. CM SPOKE TO PT IN ROOM WHO WAS UPSET STATING SHE PAID THEM THE MONEY THAT WAS OWED AND THE ONLY JAIL SHE OWES MONEY TO IS [facility] WHICH SHE OWES $21,000. CM DISCUSSED NURSING FACILITY OPTIONS IN [place], PT ASKED THAT REFERRALS BE SENT TO ALL LOCAL NURSING [facility] EXCEPT [facility] AND [facility]. CHOICE LETTER COMPLETED. CM FAXED REFERRALS TO [facility], [facility], [facility], [facility] AND [facility]. CM WAITING ADMISSION DETERMINATIONS FROM [facility], [facility], [facility], [facility] AND [facility]. CM WAITING LEVEL 2 DONA SCREENING COMPLETION AND DETERMINATION. Brock Chavez, CASE MANAGEMENT Appended by Brock Chavez on 02/19/2018 16:07 ANIMAL STUNNER: CM RECEIVED CALL FROM PT WHO REPORTS THAT HER FATHER CALLED [facility] WHO INFORMED HIM THAT HER MEDICAID WAS INACTIVE. CM CALLED EDWIN OF [employer] [facility] [place] WHO CONFIRMED PT HAD [facility] CARE MEDICAID THAT ENDED. EDWIN INFORMED CM THAT THE JAIL WILL NEED TO REAPPLY FOR [facility] CARE MEDICAID, SHE IS NOT ABLE TO DO THAT APPLICATION. PT NOTIFIED. CM RECEIVED CALL FROM DOROTHEA OF [facility] WHO DECLINED PT. PT HAS BEEN DECLINED FOR PRODUCT MANAGEMENT INTERN CARE FROM [facility] AND [facility]. CM WAITING ADMISSION DETERMINATIONS FROM [facility], [facility] AND [facility]. CM WAITING LEVEL 2 DONA SCREENING COMPLETION AND DETERMINATION. Brock Chavez, CASE MANAGEMENT Appended by Brock Chavez on 02/19/2018 16:55 ANIMAL STUNNER: CM RECEIVED MESSAGE FROM [facility], PT HAS BEEN DECLINED. PT HAS BEEN DECLINED FOR PRODUCT MANAGEMENT INTERN CARE FROM [facility] AND [facility]. CM WAITING ADMISSION DETERMINATIONS FROM [facility], [facility] AND [facility]. CM WAITING LEVEL 2 DONA SCREENING COMPLETION AND DETERMINATION. Brock Chavez, CASE MANAGEMENT DCP- Discharge Planning Updated by [id number]: Brock Chavez on 02/17/18 2:[address] Patient Name: CHRISTINE NGUYEN Encounter No: [id number] : 1975 Primary Insurance: MEDICARE A & B Anticipated DC Date: Planned Disposition: Correction Facility External Planned Provider: [facility], MEDICARE REHAB BED DCP follow-up note: CM COMPLETED DONA THAT CM STARTED ON 02-15-18, DOCTOR AND PT SIGNATURES WERE OBTAINED. CM MET WITH PT IN ROOM TO DISCUSS DISCHARGE PLANNING AND NEEDS. PT REPORTS SHE IS NOT ABLE TO CARE FOR HERSELF AND HER PARENTS, WHOM SHE WAS LIVING WITH, ARE NOT ABLE TO EITHER. PT WOULD LIKE PLACMENT AT [facility]. PT HAS TALKED TO MYLA OF [facility] WHO TOLD HER THAT IT DEPENDS ON IF THE DOCTOR WILL TAKE HER BACK THERE OR NOT. PT REPORTS SHE HAS BEEN TO [facility], [facility] AND [facility] FOR REHAB AND [facility] CARE IN THE PAST. PT LEFT THE [facility] IN FEBRUARY OR MARCH OF THIS YEAR AND MOVED IN WITH HER PARENTS. PT'S FIRST CHOICE FOR REHAB AND PRODUCT MANAGEMENT INTERN CARE IS [facility], SECOND CHOICE IS THE [facility]. PT WILL NOT CONSIDER [facility] AGAIN. CHOICE COMPLETED AND SIGNED. IMPORTANT MESSAGE FROM MEDICARE PROVIDED AND DISCUSSED. PT REPORTS THE LAST DONA THAT WAS DONE THEY HAD TO DO A LEVEL 2 SCREENING. CM CALLED MARIXA OF [facility], , LEFT MESSAGE ASKING FOR RETURN CALL. CM FAXED REFERRAL TO [facility] AT [phone]. CM FAXED COMPLETED DONA SCREENING AND SUPPORTING DOCUMENTS TO [facility] AT [phone]. CM WAITING ADMISSION DETERMINATION FROM [facility] AND DONA SCREENING COMPLETION. Brock Chavez CASE MANAGEMENT Appended by Brock Chavez on 02/17/2018 9:57 ANIMAL STUNNER: CM RECEIVED CALL FROM MARIXA OF [facility], , WHO INSTRUCTED CM TO SEND THE REFERRAL AND THEIR DOCTOR AND DIRECTOR WILL LOOK AT IT TO MAKE ADMISSION DETERMINATION. REFERRAL PREVIOUSLY FAXED TODAY TO [facility] AT [phone]. CM WAITING ADMISSION DETERMINATION FROM [facility] AND DONA SCREENING COMPLETION. Brock Chavez, CASE MANAGEMENT Appended by Brock Chavez on 02/17/2018 15:44 ANIMAL STUNNER: CM RECEIVED DONA SCREENING RESPONSE, PT WILL REQUIRE LEVEL 2 SCREENING WHICH MAY TAKE UP TO 9 (NINE) BUSINESS DAYS TO COMPLETE. CM FAXED DONA DETERMINATION REQUIRING LEVEL 2 SCREEN TO [facility] AT [phone]. CM WAITING ADMISSION DETERMINATION FROM [facility] AND DONA LEVEL 2 SCREENING COMPLETION WHICH CAN TAKE UP TO 9 (NINE) BUSINESS DAYS. TERRA Amato MANAGEMENT DCP- Discharge Planning Updated by [id number]: Misti Mccnan on 02/12/18 5:[address] Patient Name: CHRISTINE NGUYEN Admission Status: ER Accout number: [id number] Admission Date: 02-11-2018 : 1975 Admission Diagnosis: Attending: DREW WANG Current LOS: 1 Anticipated DC Date: Planned Disposition: Correction Facility Primary Insurance: MEDICARE A & B Discharge Planning Comments: CM spoke with patient at bedside. Patient states she knows she can't return to her home. She is totally dependent of all her ADLs she is can feed herself but that is about all. APS has been notified of case. Patient is requesting to discharge to [facility]. CM will contact [facility]. CM will fax records to [facility] for possible placement when stable. CM will continue to follow and assist with discharge planning / needs. Industrial Analyst: Misti Mccann DCPIA - Discharge Planning Initial Assessment Updated by [id number]: Misti Mccann on 02/12/18 6:12 pm * Is the patient Alert and Oriented? Yes * PCP Dr. bueno * Pharmacy [facility] * Preadmission Environment Home with Family * ADLs Total Dependent * Equipment Wheelchair * List name and contact numbers for known caregivers / representatives who currently or will assist patient after discharge: Meggan Carlson mother [phone] * Verbal permission to speak to the caregivers and representatives has been obtained from the patient. N/A * Community resources currently utilized None * Additional services required to return to the preadmission environment? Yes * Can the patient safely return to the preadmission environment? No * Has this patient been hospitalized within the prior 30 days at any hospital? No Coverage Notice Reviewer: SAKINA Chavez Notice Issued Date-Time: 02/17/2018 8:10 Notice Type: IM Discharge Notice Notice Delivered To: Patient Relationship to Patient: Senior Drafter Name: Delivery Method: HAND - Hand Delivered [place] Days: Prior Verbal Notification: Recipient Understood Notice: Yes Recipient Signature: Yes Med Rec Note Co-signed by Attending: Coverage Notice Comment: Reviewer: SAKINA Chavez Notice Issued Date-Time: 02/17/2018 8:10 Notice Type: Patient Choice Letter Notice Delivered To: Patient Relationship to Patient: Senior Drafter Name: Delivery Method: HAND - Hand Delivered [place] Days: Prior Verbal Notification: Recipient Understood Notice: Yes Recipient Signature: Yes Med Rec Note Co-signed by Attending: Coverage Notice Comment: 1- [facility] / 2- [facility] Reviewer: SAKINA Chavez Notice Issued Date-Time: 02/19/2018 9:30 Notice Type: Patient Choice Letter Notice Delivered To: Patient Relationship to Patient: Senior Drafter Name: Delivery Method: HAND - Hand Delivered [place] Days: Prior Verbal Notification: Recipient Understood Notice: Yes Recipient Signature: Yes Med Rec Note Co-signed by Attending: Coverage Notice Comment: [facility] [place] [facility] EXCEPT: [facility] OR [facility]. Reviewer: SAKINA Chavez Notice Issued Date-Time: 02/26/2018 12:50 Notice Type: IM Discharge Notice Notice Delivered To: Patient Relationship to Patient: Senior Drafter Name: Delivery Method: HAND - Hand Delivered [place] Days: Prior Verbal Notification: Recipient Understood Notice: Yes Recipient Signature: Yes Med Rec Note Co-signed by Attending: Coverage Notice Comment: Last DP export: 03/08/18 9:38 a Patient Name: CHRISTINE NGUYEN Page [id number] at 1117 All edits/amendments must be made on the electronic document DICTATION DATE: 03/08/181116 OIL TANKER CAPTAIN: KAYODE 03/08/181116 RPT#: [id number] DC DATE: STATUS: ADM IN [facility] [address] [place] [address] END OF REPORT
[2018-03-08 12:00] VITALS: BP 120/78
--- NOTE | 2018-03-08 15:16 | NUR ---
PT [id number] RESP EVEN AND NONLABORED PT DENIES NEEDS AT THIS TIME WILL CONTINUE TO MONITOR
[2018-03-08 16:00] VITALS: BP 97/54
--- NOTE | 2018-03-08 16:25 | MORECARE ---
CASE MANAGEMENT DISCHARGE SUMMARY PATIENT: CHRISTINE NGUYEN UNIT: [id number] ADM DATE: 02/11/18 AGE: 42 : [birth year] SEX: F ROOM/BED: D.1212 AUTHOR: ABBEY ALVA PHYSICIAN: REFERRING PHYSICIAN: DREW WANG MD DATE OF SERVICE: 03/08/18 Discharge Plan Patient Name: CHRISTINE NGUYEN Facility[facility]:[place] : 1975 Planned Disposition: Group Home Facility Anticipated Discharge Date: 02/26/18 Discharge Date: Expected LOS: 15 Initial Reviewer: [id number] Initial Review Date: 02/12/2018 Generated: 03/08/18 5:25 pm Comments DCP- Discharge Planning Updated by [id number]: Erum Ray on 03/08/18 3:[address] CM received call back from Sylvia, window caser with APS. Sylvia informed CM that APS did not have a "hold" on patient and that she was free to discharge. Patient's son is here to take patient to his home to live ([address] [place] [address]). CM explained and served DC IMM. CM will continue to follow and assist as needed with discharge planning / needs. DCP- Discharge Planning Updated by [id number]: Erum Ray on 03/08/18 10:[address] CM received message from Dr. Wang to set up patient's DME as requested to facilitate discharge for today. CM met with patient and family. Patient requesting wheelchair, (states she got one from [employer] in 2016 and it is falling apart) BSC, and Shower Chair. CM called [facility] regarding equipment. CM was informed that patient's Medicaid 01/26/18. Patient will be responsible for 20% copay on wheelchair for 13 month rental = $85.00 and BSC 20% copay $18.00. Shower Chair is not covered by Medicare and will cost patient $59.99. Patient stated she will order Shower Chair form [employer]. States she will pay the $85.00 copay for wheelchair and $18.00 copay for BSC. CM faxed records to [facility] as requested. Awaiting insurance auth. CM called APS regarding case # [id number] to inform window caser of plans to discharge patient home with son today. Left Message for Sylvia Tyler at [phone]. Awaiting return call. CM will continue to follow and assist as needed with discharge planning / needs. DCP- Discharge Planning Updated by [id number]: Chey Moreno on 03/07/18 5:[address] CONTACT INFORMATION FOR ADAMARIS NGUYEN, SON [phone] OR [phone] DCP- Discharge Planning Updated by [id number]: Chey Moreno on 03/07/18 3:[address] LATE ENTRY 1530 PRIMARY NURSE ADVISED CM THAT THE PATIENT' SON, ADAMARIS NGUYEN, IS HERE FROM [place]. HE PLANS TO TAKE HIS MOTHER VIA CAR TO HIS HOME IN [place] THURSDAY THIS IS APPROXIMATELY AN EIGHT HOUR [address]IVE. CM REVIEWED NOTES. ADVISED THE SON IT APPEARS APS IS INVOLVED IN THE CASE. WILL NEED TO COMMUNICATE WITH APS. PATIENT CANNOT BE ISCHARGED WITHOUT THEIR RELEASE. ADVISED THE APS STAFF WOULD BE BACK IN THE OFFICE THURSDAY. HE PLANS TO BE IN EARLY AM TO SPEAK WITH DR WANG. CM ALSO ADVISED STAFF TO INFORM HIM OF PATIENT NEEDS. WOULD LIKELY BE A DIFFICULT TRIP. PATIENT ALSO WOULD NOT HAVE A PHYSICIAN IMMEDIATELY. HE WOULD NEED A COPY OF THE PATIENT'S CHART IF PLAN IS ALLOWED FOR AN ACCEPTING MD. APS WILL NEED TO BE NOTIFIED. DCP- Discharge Planning Updated by [id number]: Sylvia Silva on 03/02/18 4:[address] Patient Name: CHRISTINE NGUYEN Encounter No: [id number] : 1975 Primary Insurance: MEDICARE A & B Anticipated DC Date: 02-26-2018 Planned Disposition: Group Home Facility External Planned Provider: [facility], MEDICARE REHAB BED DCP follow-up note: NADIA RECEIVED CALL FROM SELVIN KAN [facility] WHO ASKED FOR CM TO FAX DONA APPROVAL TO HER AND SHE WILL CHECK TO SEE IF PT'S BANK STATEMENTS HAVE BEEN RECEIVED BY FACILITY. CM FAXED DONA APPROVAL TO [facility] AT [phone]. PT HAS BEEN DECLINED FOR [facility]CI CARE AT [facility], [facility], [facility], [facility], [facility], [facility] AND [facility]. DONA SCREENING COMPLETED AND CLEARED FOR SHELTER FACILITY ENTRY.CM WAITING ADMISSION DETERMINATION FROM [facility] WHO IS WORKING ON MEDICAID FOR CUSTOMS PORT DIRECTOR CARE, PT IS TO PROVIDE THREE MONTHS OF DETAILED BANK STATEMENTS. Brock Chavez, CASE MANAGEMENT Appended by Sylvia Silva on 03/02/2018 17:04 ORGANIC SECTION TECHNICAL LEAD: CM SPOKE WITH PATIENT AND SHE STATES "SIMPLY PAYED" WHICH IS HER ONLY BANK STATEMENTS IS BEING EMAILED TO [facility]. DCP- Discharge Planning Updated by [id number]: Brock Chavez on 03/01/18 3:[address] Patient Name: CHRISTINE NGUYEN Encounter No: [id number] : 1975 Primary Insurance: MEDICARE A & B Anticipated DC Date: 02-26-2018 Planned Disposition: Group Home Facility External Planned Provider:[facility], MEDICARE REHAB BED DCP follow-up note: CM FAXED UPDATE TO [facility] AT [phone]. CM NOTIFIED PT. PT HAS BEEN DECLINED FOR CUSTOMS PORT DIRECTOR CARE AT [facility]. DONA SCREENING COMPLETED AND CLEARED FOR SHELTER FACILITY ENTRY.CM WAITING ADMISSION DETERMINATION FROM [facility] WHO IS WORKING ON MEDICAID FOR CUSTOMS PORT DIRECTOR CARE. Brock Chavez CASE MANAGEMENT DCP- Discharge Planning Updated by [id number]: Brock Chavez on 02/26/18 12:[address] Patient Name: CHRISTINE NGUYEN Encounter No: [id number] : 1975 Primary Insurance: MEDICARE A & B Anticipated DC Date: 02-26-2018 Planned Disposition: Group Home Facility External Planned Provider: [facility], MEDICARE REHAB BED DCP follow-up note: CM RECEIVED DONA RESPONSE, PT IS CLEARED TO ENTER SHELTER BY [facility]. CM CALLED SELVIN OF [facility], , NOTIFIED OF DONA CLEARANCE AND REQUESTED ADMISSION DETERMINATION. CM FAXED DONA CLEARANCE LETTER AND UPDATE TO [facility] AT [phone]. CM NOTIFIED PT, PROVIDED AND EXPLAINED IMPORTANT MESSAGE FROM MEDICARE. PT HAS BEEN DECLINED FOR CUSTOMS PORT DIRECTOR CARE AT [facility], [facility]. DONA SCREENING COMPLETED AND CLEARED FOR SHELTER FACILITY ENTRY.CM WAITING ADMISSION DETERMINATION FROM [facility] WHO IS WORKING ON MEDICAID FOR FCI CARE. Brock Chavez CASE MANAGEMENT DCP- Discharge Planning Updated by [id number]: Brock Chavez on 02/24/18 10:[address] Patient Name: CHRISTINE NGUYEN Encounter No: [id number] : 1975 Primary Insurance: MEDICARE A & B Anticipated DC Date: Planned Disposition: Group Home Facility External Planned Provider: [facility] MEDICARE REHAB BED DCP follow-up note: CM RECEIVED CALL FROM SELVIN [facility], THEY WILL VISIT WITH PT IN HOSPITAL TODAY TO ASSESS PT FOR ADMISSION. CM HAS NOT YET RECEIVED LEVEL 2 DONA DETERMINATION. PT HAS BEEN DECLINED FOR FCI CARE AT [facility], [facility] AND [facility]. CM WAITING ADMISSION DETERMINATION FROM [facility]. CM WAITING LEVEL 2 DONA SCREENING COMPLETION AND DETERMINATION. Brock Chavez CASE NOAH DCP- Discharge Planning Updated by [id number]: Brock Chavez on 02/22/18 2:[address] Patient Name: CHRISTINE NGUYEN Encounter No: [id number] : 1975 Primary Insurance: MEDICARE A & B Anticipated DC Date: Planned Disposition: Group Home Facility External Planned Provider: [facility] DCP follow-up note: CM RECEIVED CALL FROM CHETNA, PT'S STEP FATHER WHO REPORTS HE CALLED [facility] AND THEY TOLD HIM THE REASON THEY CANNOT ACCEPT IS THAT PT'S FCI CARE MEDICAID WAS INACTIVE AND CM NEEDED TO FILE FOR CUSTOMS PORT DIRECTOR CARE MEDICAID. CM EXPLAINED THAT THERE ARE OTHER FACTORS USED IN MAKING THEIR DECISION AND THAT THE SENIOR CARE, NOT CM, APPLIES FOR FCI CARE MEDICAID. CHETNA STATES HE AND PT WANT HER TO GO TO [facility]; CM EXPLAINED THAT THE FACILITY HAD SAID NO; CHETNA ASKED FOR CM TO CALL THEM BACK AND HE WILL DO THE SAME. CM CALLED MARIXA OF [facility], , LEFT DETAILED MESSAGE ASKING FOR RETURN CALL. CM RECEIVED CALL FROM SYLVIA OF [facility], SHE WILL VISIT WITH AND ASSESS PT FOR LEVEL 2 DONA SCREENING TODAY AFTER NOON. PT HAS BEEN DECLINED FOR FCI CARE FROM [facility], [facility] AND [facility]. CM WAITING ADMISSION DETERMINATIONS FROM [facility], [facility] AND [facility]. CM WAITING LEVEL 2 DONA SCREENING COMPLETION AND DETERMINATION. Brock Chavez, CASE MANAGEMENT Appended by Brock Chavez on 02/22/2018 15:16 ORGANIC SECTION TECHNICAL LEAD: CM SPOKE TO DOROTHEA OF [facility], THEY WILL NOT ACCEPT PT. CM SPOKE TO [facility], THEY CANNOT MEET PT'S NEEDS. CM SPOKE TO NATHALIE OF [facility], THEY CANNOT TAKE PT. CM CALLED AND SPOKE TO [facility] WHO INFORMED CM THEY ARE STILL CONSIDERING PT FOR PLACEMENT AND WILL VISIT WITH PT ON 02-24-18. PT NOTIFIED OF ABOVE; PT CONTINUES TO DECLINE REFERRAL TO [facility] AND UNDERSTANDS IF [facility] DECLINES, CM WILL HAVE TO SEND REFERRAL OUTSIDE OF [place] FOR PLACEMENT CONSIDERATION. PT HAS BEEN DECLINED FOR CUSTOMS PORT DIRECTOR CARE AT [facility], [facility], [facility], [facility]. CM WAITING ADMISSION DETERMINATION FROM [facility]. CM WAITING LEVEL 2 DONA SCREENING COMPLETION AND DETERMINATION. Brock Chavez, CASE MANAGEMENT DCP- Discharge Planning Updated by [id number]: Brock Chavez on 02/19/18 3:[address] Patient Name: CHRISTINE NGUYEN Encounter No: [id number] : 1975 Primary Insurance: MEDICARE A & B Anticipated DC Date: Planned Disposition: Group Home Facility External Planned Provider: ANY ACCEPTING [place] [facility], MEDICARE REHAB BED DCP follow-up note: CM RECEIVED CALL FROM [facility]IX[facility], THEY WILL NOT ACCEPT DUE TO FINANCIAL CONCERNS. CM SPOKE TO DR. WANG AND PROVIDED UPDATE. CM SPOKE TO PT IN ROOM WHO WAS UPSET STATING SHE PAID THEM THE MONEY THAT WAS OWED AND THE ONLY SENIOR CARE SHE OWES MONEY TO IS [facility] WHICH SHE OWES $21,000. CM DISCUSSED NURSING FACILITY OPTIONS IN [place], PT ASKED THAT REFERRALS BE SENT TO ALL LOCAL NUR[facility] EXCEPT [facility] AND [facility]. CHOICE LETTER COMPLETED. CM FAXED REFERRALS TO [facility], [facility], [facility], [facility]. CM WAITING ADMISSION DETERMINATIONS FROM [facility], [facility], [facility], [facility] AND [facility]. CM WAITING LEVEL 2 DONA SCREENING COMPLETION AND DETERMINATION. Brock Kathy, CASE MANAGEMENT Appended by Brock Chavez on 02/19/2018 16:07 ORGANIC SECTION TECHNICAL LEAD: CM RECEIVED CALL FROM PT WHO REPORTS THAT HER FATHER CALLED [facility] WHO INFORMED HIM THAT HER MEDICAID WAS INACTIVE. CM CALLED EDWIN OF [employer] [facility] [place] WHO CONFIRMED PT HAD FCI CARE MEDICAID THAT ENDED. EDWIN INFORMED CM THAT THE SENIOR CARE WILL NEED TO REAPPLY FOR CUSTOMS PORT DIRECTOR CARE MEDICAID, SHE IS NOT ABLE TO DO THAT APPLICATION. PT NOTIFIED. CM RECEIVED CALL FROM [facility]A [facility] WHO DECLINED PT. PT HAS BEEN DECLINED FOR FCI CARE FROM [facility] AND [facility]. CM WAITING ADMISSION DETERMINATIONS FROM [facility], [facility] AND [facility]. CM WAITING LEVEL 2 DONA SCREENING COMPLETION AND DETERMINATION. Brock Chavez, CASE MANAGEMENT Appended by Brock Chavez on 02/19/2018 16:55 ORGANIC SECTION TECHNICAL LEAD: CM RECEIVED MESSAGE FROM [facility], PT HAS BEEN DECLINED. PT HAS BEEN DECLINED FOR CUSTOMS PORT DIRECTOR CARE FROM [facility] AND [facility]. CM WAITING ADMISSION DETERMINATIONS FROM [facility], [facility] AND [facility]. CM WAITING LEVEL 2 DONA SCREENING COMPLETION AND DETERMINATION. Brock Chavez, CASE MANAGEMENT DCP- Discharge Planning Updated by [id number]: Brock Chavez on 02/17/18 2:[address] Patient Name: CHRISTINE NGUYEN Encounter No: [id number] : 1975 Primary Insurance: MEDICARE A & B Anticipated DC Date: Planned Disposition: Group Home Facility External Planned Provider: [facility], MEDICARE REHAB BED DCP follow-up note: CM COMPLETED DONA THAT CM STARTED ON 02-15-18, DOCTOR AND PT SIGNATURES WERE OBTAINED. CM MET WITH PT IN ROOM TO DISCUSS DISCHARGE PLANNING AND NEEDS. PT REPORTS SHE IS NOT ABLE TO CARE FOR HERSELF AND HER PARENTS, WHOM SHE WAS LIVING WITH, ARE NOT ABLE TO EITHER. PT WOULD LIKE PLACMENT AT [facility]. PT HAS TALKED TO MYLA OF [facility] WHO TOLD HER THAT IT DEPENDS ON IF THE DOCTOR WILL TAKE HER BACK THERE OR NOT. PT REPORTS SHE HAS BEEN TO [facility], [facility] AND [facility] FOR REHAB AND FCI CARE IN THE PAST. PT LEFT [facility] IN FEBRUARY OR MARCH OF THIS YEAR AND MOVED IN WITH HER PARENTS. PT'S FIRST CHOICE FOR REHAB AND CUSTOMS PORT DIRECTOR CARE IS [facility], SECOND CHOICE IS [facility]. PT WILL NOT CONSIDER [facility] AGAIN. CHOICE COMPLETED AND SIGNED. IMPORTANT MESSAGE FROM MEDICARE PROVIDED AND DISCUSSED. PT REPORTS THE LAST DONA THAT WAS DONE THEY HAD TO DO A LEVEL 2 SCREENING. CM CALLED MARIXA [facility], , LEFT MESSAGE ASKING FOR RETURN CALL. CM FAXED REFERRAL TO [facility] AT [phone]. CM FAXED COMPLETED DONA SCREENING AND SUPPORTING DOCUMENTS TO [facility] AT [phone]. CM WAITING ADMISSION DETERMINATION FROM [facility] AND DONA SCREENING COMPLETION. Brock Chavez CASE MANAGEMENT Appended by Brock Chavez on 02/17/2018 9:57 ORGANIC SECTION TECHNICAL LEAD: CM RECEIVED CALL FROM [facility], , WHO INSTRUCTED CM TO SEND THE REFERRAL AND THEIR DOCTOR AND DIRECTOR WILL LOOK AT IT TO MAKE ADMISSION DETERMINATION. REFERRAL PREVIOUSLY FAXED TODAY TO [facility] AT [phone]. CM WAITING ADMISSION DETERMINATION FROM [facility] AND DONA SCREENING COMPLETION. Brock Chavez CASE MANAGEMENT Appended by Brock Chavez on 02/17/2018 15:44 ORGANIC SECTION TECHNICAL LEAD: CM RECEIVED DONA SCREENING RESPONSE, PT WILL REQUIRE LEVEL 2 SCREENING WHICH MAY TAKE UP TO 9 (NINE) BUSINESS DAYS TO COMPLETE. CM FAXED DONA DETERMINATION REQUIRING LEVEL 2 SCREEN TO [facility] AT [phone]. CM WAITING ADMISSION DETERMINATION FROM [facility] AND DONA LEVEL 2 SCREENING COMPLETION WHICH CAN TAKE UP TO 9 (NINE) BUSINESS DAYS. TERRA Amato MANAGEMENT DCP- Discharge Planning Updated by [id number]: Misti Mccann on 02/12/18 5:[address] Patient Name: CHRISTINE NGUYEN Admission Status: ER Accout number: [id number] Admission Date: 02-11-2018 : 1975 Admission Diagnosis: Attending: DREW WANG Current LOS: 1 Anticipated DC Date: Planned Disposition: Group Home Facility Primary Insurance: MEDICARE A & B Discharge Planning Comments: CM spoke with patient at bedside. Patient states she knows she can't return to her home. She is totally dependent of all her ADLs she is can feed herself but that is about all. APS has been notified of case. [facility] CM will [facility] records to [facility] for possible placement when stable. CM will continue to follow and assist with discharge planning / needs. Dice Person: Misti Mccann AMANUEL - Discharge Planning Initial Assessment Updated by [id number]: Misti Mccann on 02/12/18 6:12 pm * Is the patient Alert and Oriented? Yes * PCP Dr. bueno * Pharmacy [facility] or [facility] * Preadmission Environment Home with Family * ADLs Total Dependent * Equipment Wheelchair * List name and contact numbers for known caregivers / representatives who currently or will assist patient after discharge: Meggan Carlson mother [phone] * Verbal permission to speak to the caregivers and representatives has been obtained from the patient. N/A * Community resources currently utilized None * Additional services required to return to the preadmission environment? Yes * Can the patient safely return to the preadmission environment? No * Has this patient been hospitalized within the prior 30 days at any hospital? No Coverage Notice Reviewer: SAKINA Chavez Notice Issued Date-Time: 02/17/2018 8:10 Notice Type: IM Discharge Notice Notice Delivered To: Patient Relationship to Patient: Operator Technician Name: Delivery Method: HAND - Hand Delivered [place] Days: Prior Verbal Notification: Recipient Understood Notice: Yes Recipient Signature: Yes Med Rec Note Co-signed by Attending: Coverage Notice Comment: Reviewer: SAKINA Chavez Notice Issued Date-Time: 02/17/2018 8:10 Notice Type: Patient Choice Letter Notice Delivered To: Patient Relationship to Patient: Operator Technician Name: Delivery Method: HAND - Hand Delivered [place] Days: Prior Verbal Notification: Recipient Understood Notice: Yes Recipient Signature: Yes Med Rec Note Co-signed by Attending: Coverage Notice Comment: 1- [facility] / 2- [facility] Reviewer: [id number] Chavez Notice Issued Date-Time: 02/19/2018 9:30 Notice Type: Patient Choice Letter Notice Delivered To: Patient Relationship to Patient: Operator Technician Name: Delivery Method: HAND - Hand Delivered [place] Days: Prior Verbal Notification: Recipient Understood Notice: Yes Recipient Signature: Yes Med Rec Note Co-signed by Attending: Coverage Notice Comment: ANY [place] [facility] EXCEPT: [facility] OR [facility]. Reviewer: SAKINA Chavez Notice Issued Date-Time: 02/26/2018 12:50 Notice Type: IM Discharge Notice Notice Delivered To: Patient Relationship to Patient: Operator Technician Name: Delivery Method: HAND - Hand Delivered [place] Days: Prior Verbal Notification: Recipient Understood Notice: Yes Recipient Signature: Yes Med Rec Note Co-signed by Attending: Coverage Notice Comment: Last DP export: 03/08/18 10:17 a Patient Name: CHRISTINE NGUYEN Page [id number] at 1625 All edits/amendments must be made on the electronic document DICTATION DATE: 03/08/181623 JUTE BAG CUTTING MACHINE OPERATOR: KAYODE 03/08/184 RPT#: [id number] DC DATE: STATUS: ADM IN [facility] [address] [place] [address] END OF REPORT
--- NOTE | 2018-03-08 16:45 | MORECARE ---
CASE MANAGEMENT DISCHARGE SUMMARY PATIENT: CHRISTINE NGUYEN UNIT: [id number] ADM DATE: 02/11/18 AGE: 42 : [birth year] SEX: F ROOM/BED: D.1212 AUTHOR: ABBEY ALVA PHYSICIAN: REFERRING PHYSICIAN: DREW WANG MD DATE OF SERVICE: 03/08/18 Discharge Plan Patient Name: CHRISTINE NGUYEN Facility[facility]:[place] : 1975 Planned Disposition: Long-Term Facility Anticipated Discharge Date: 02/26/18 Discharge Date: Expected LOS: 15 Initial Reviewer: [email or web address] Initial Review Date: 02/12/2018 Generated: 03/08/18 5:45 pm Comments DCP- Discharge Planning Updated by [id number]: Erum Ray on 03/08/18 3:[address] CM received call back from Sylvia, family service caseworker with APS. Sylvia informed CM that APS did not have a "hold" on patient and that she was free to discharge. Patient's son is here to take patient to his home to live ([address] [place] [address]). CM explained and served DC IMM. CM will continue to follow and assist as needed with discharge planning / needs. DCP- Discharge Planning Updated by [email or web address]: Erum Ray on 03/08/18 10:[address] CM received message from Dr. Wang to set up patient's DME as requested to facilitate discharge for today. CM met with patient and family. Patient requesting wheelchair, (states she got one from [employer] in 2016 and it is falling apart) BSC, and Shower Chair. CM called [facility] regarding equipment. CM was informed that patient's Medicaid 01/26/18. Patient will be responsible for 20% copay on wheelchair for 13 month rental = $85.00 and BSC 20% copay $18.00. Shower Chair is not covered by Medicare and will cost patient $59.99. Patient stated she will order Shower Chair form [employer]. States she will pay the $85.00 copay for wheelchair and $18.00 copay for BSC. CM faxed records to [facility] as requested. Awaiting insurance auth. CM called APS regarding case # [id number] to inform family service caseworker of plans to discharge patient home with son today. Left Message for Sylvia Tyler at [phone]. Awaiting return call. CM will continue to follow and assist as needed with discharge planning / needs. DCP- Discharge Planning Updated by [email or web address]: Chey Moreno on 03/07/18 5:[address] CONTACT INFORMATION FOR ADAMARIS NGUYEN, SON [phone] OR [phone] DCP- Discharge Planning Updated by [id number]: Chey Moreno on 03/07/18 3:[address] LATE ENTRY 1530 PRIMARY NURSE ADVISED CM THAT THE PATIENT' SON, ADAMARIS NGUYEN, IS HERE FROM [place]. HE PLANS TO TAKE HIS MOTHER VIA CAR TO HIS HOME IN [place] THURSDAY THIS IS APPROXIMATELY AN EIGHT HOUR DRIVE. CM REVIEWED NOTES. ADVISED THE SON IT APPEARS APS IS INVOLVED IN THE CASE. WILL NEED TO COMMUNICATE WITH APS. PATIENT CANNOT BE ISCHARGED WITHOUT THEIR RELEASE. ADVISED THE APS STAFF WOULD BE BACK IN THE OFFICE THURSDAY. HE PLANS TO BE IN EARLY AM TO SPEAK WITH DR WANG. CM ALSO ADVISED STAFF TO INFORM HIM OF PATIENT NEEDS. WOULD LIKELY BE A DIFFICULT TRIP. PATIENT ALSO WOULD NOT HAVE A PHYSICIAN IMMEDIATELY. HE WOULD NEED A COPY OF THE PATIENT'S CHART IF PLAN IS ALLOWED FOR AN ACCEPTING MD. APS WILL NEED TO BE NOTIFIED. DCP- Discharge Planning Updated by [id number]: Sylvia Silva on 03/02/18 4:[address] Patient Name: CHRISTINE NGUYEN Encounter No: [id number] : 1975 Primary Insurance: MEDICARE A & B Anticipated DC Date: 02-26-2018 Planned Disposition: Long-Term Facility External Planned Provider: [facility], MEDICARE REHAB BED DCP follow-up note: NADIA RECEIVED CALL FROM SELVIN [facility] WHO ASKED FOR CM TO FAX DONA APPROVAL TO HER AND SHE WILL CHECK TO SEE IF PT'S BANK STATEMENTS HAVE BEEN RECEIVED BY FACILITY. CM FAXED DONA APPROVAL TO [facility] AT [phone]. PT HAS BEEN DECLINED FOR LONGTERM CARE AT [facility], [facility], [facility], [facility], [facility], [facility] AND [facility]. DONA SCREENING COMPLETED AND CLEARED FOR [facility] FACILITY ENTRY.CM WAITING ADMISSION DETERMINATION FROM [facility] WHO IS WORKING ON MEDICAID FOR W[facility] WE[facility]ER [employer]OTH C[facility], PT IS TO PROVIDE THREE MONTHS OF DETAILED BANK STATEMENTS. Brock Chavez, CASE MANAGEMENT Appended by Sylvia Silva on 03/02/2018 17:04 WARD MAID: CM SPOKE WITH PATIENT AND SHE STATES "SIMPLY PAYED" WHICH IS HER ONLY BANK STATEMENTS IS BEING EMAILED TO [facility]. DCP- Discharge Planning Updated by [id number]: Brock Chavez on 03/01/18 3:[address] Patient Name: CHRISTINE NGUYEN Encounter No: [id number] : 1975 Primary Insurance: MEDICARE A & B Anticipated DC Date: 02-26-2018 Planned Disposition: Long-Term Facility External Planned Provider:[facility], MEDICARE REHAB BED DCP follow-up note: CM FAXED UPDATE TO [facility] AT [phone]. CM NOTIFIED PT. PT HAS BEEN DECLINED FOR [facility] WE[facility] CARE AT [facility]. DONA SCREENING COMPLETED AND CLEARED FOR [facility] FACILITY ENTRY.CM WAITING ADMISSION DETERMINATION FROM [facility] WHO IS WORKING ON MEDICAID FOR W[facility] WE[facility]ER CLOTH CARE. Brock Chavez CASE MANAGEMENT DCP- Discharge Planning Updated by [id number]: Brock Chavez on 02/26/18 12:[address] Patient Name: CHRISTINE NGUYEN Encounter No: [id number] : 1975 Primary Insurance: MEDICARE A & B Anticipated DC Date: 02-26-2018 Planned Disposition: Long-Term Facility External Planned Provider: [facility], MEDICARE REHAB BED DCP follow-up note: CM RECEIVED DONA RESPONSE, PT IS CLEARED TO ENTER [facility] BY [facility]. CM CALLED SELVIN OF [facility], , NOTIFIED OF DONA CLEARANCE AND REQUESTED ADMISSION DETERMINATION. CM FAXED DONA CLEARANCE LETTER AND UPDATE TO [facility] AT [phone]. CM NOTIFIED PT, PROVIDED AND EXPLAINED IMPORTANT MESSAGE FROM MEDICARE. PT HAS BEEN DECLINED FOR WIRE WEAVER CLOTH CARE AT [facility], [facility]. DONA SCREENING COMPLETED AND CLEARED FOR [facility] FACILITY ENTRY.CM WAITING ADMISSION DETERMINATION FROM [facility] WHO IS WORKING ON MEDICAID FOR LONGTERM CARE. Brock Chavez CASE MANAGEMENT DCP- Discharge Planning Updated by [id number]: Brock Chavez on 02/24/18 10:[address] Patient Name: CHRISTINE NGUYEN Encounter No: [id number] : 1975 Primary Insurance: MEDICARE A & B Anticipated DC Date: Planned Disposition: Long-Term Facility External Planned Provider: [facility], MEDICARE REHAB BED DCP follow-up note: CM RECEIVED CALL FROM SELVIN [facility], THEY WILL VISIT WITH PT IN HOSPITAL TODAY TO ASSESS PT FOR ADMISSION. CM HAS NOT YET RECEIVED LEVEL 2 DONA DETERMINATION. PT HAS BEEN DECLINED FOR LONGTERM CARE AT [facility], [facility] AND [facility]. CM WAITING ADMISSION DETERMINATION FROM [facility]. CM WAITING LEVEL 2 DONA SCREENING COMPLETION AND DETERMINATION. Brock Chavez CASE NOAH DCP- Discharge Planning Updated by [id number]: Brock Chavez on 02/22/18 2:[address] Patient Name: CHRISTINE NGUYEN Encounter No: [id number] : 1975 Primary Insurance: MEDICARE A & B Anticipated DC Date: Planned Disposition: Long-Term Facility External Planned Provider: [facility] DCP follow-up note: CM RECEIVED CALL FROM CHETNA, PT'S STEP FATHER WHO REPORTS HE CALLED [facility] AND THEY TOLD HIM THE REASON THEY CANNOT ACCEPT IS THAT PT'S LONGTERM CARE MEDICAID WAS INACTIVE AND CM NEEDED TO FILE FOR WIRE WE[employer]OTH C[employer] MEDICAID. CM EXPLAINED THAT THERE ARE OTHER FACTORS USED IN MAKING THEIR DECISION AND THAT THE MCC, NOT CM, APPLIES FOR LONGTERM CARE MEDICAID. CHETNA STATES HE AND PT WANT HER TO GO TO [facility]; CM EXPLAINED THAT THE FACILITY HAD SAID NO; CHETNA ASKED FOR CM TO CALL THEM BACK AND HE WILL DO THE SAME. CM CALLED MARIXA OF [facility], , LEFT DETAILED MESSAGE ASKING FOR RETURN CALL. CM RECEIVED CALL FROM SYLVIA OF [facility], SHE WILL VISIT WITH AND ASSESS PT FOR LEVEL 2 DONA SCREENING TODAY AFTER NOON. PT HAS BEEN DECLINED FOR LONGTERM CARE FROM [facility], [facility] AND [facility]. CM WAITING ADMISSION DETERMINATIONS FROM [facility], [facility] AND [facility]. CM WAITING LEVEL 2 DONA SCREENING COMPLETION AND DETERMINATION. Brock Chavez, CASE MANAGEMENT Appended by Brock Chavez on 02/22/2018 15:16 WARD MAID: CM SPOKE TO DOROTHEA OF [facility], THEY WILL NOT ACCEPT PT. CM SPOKE TO SR[facility]AS [facility], THEY CANNOT MEET PT'S NEEDS. CM SPOKE TO NATHALIE OF [facility], THEY CANNOT TAKE PT. CM CALLED AND SPOKE TO DAVY [facility] WHO INFORMED CM THEY ARE STILL CONSIDERING PT FOR PLACEMENT AND WILL VISIT WITH PT ON 02-24-18. PT NOTIFIED OF ABOVE; PT CONTINUES TO DECLINE REFERRAL TO [facility] AND UNDERSTANDS IF [facility] DECLINES, CM WILL HAVE TO SEND REFERRAL OUTSIDE OF [place] FOR PLACEMENT CONSIDERATION. PT HAS BEEN DECLINED FOR WIRE WEAVER CLOTH CARE AT [facility], [facility], [facility], [facility]. CM WAITING ADMISSION DETERMINATION FROM [facility]. CM WAITING LEVEL 2 DONA SCREENING COMPLETION AND DETERMINATION. Brock Chavez, CASE MANAGEMENT DCP- Discharge Planning Updated by [id number]: Brock Chavez on 02/19/18 3:[address] Patient Name: CHRISTINE NGUYEN Encounter No: [id number] : 1975 Primary Insurance: MEDICARE A & B Anticipated DC Date: Planned Disposition: Long-Term Facility External Planned Provider: [facility]ING [place] [facility], MEDICARE REHAB BED DCP follow-up note: CM RECEIVED CALL FROM [facility], THEY WILL NOT ACCEPT DUE TO FINANCIAL CONCERNS. CM SPOKE TO DR. WANG AND PROVIDED UPDATE. CM SPOKE TO PT IN ROOM WHO WAS UPSET STATING SHE PAID THEM THE MONEY THAT WAS OWED AND THE ONLY [facility]CC SHE OWES MONEY TO IS [facility] WHICH SHE OWES $21,000. CM DISCUSSED NURSING FACILITY OPTIONS IN [place], PT ASKED THAT REFERRALS BE SENT TO ALL LOCAL NURSING [facility] EXCEPT [facility] AND [facility]. CHOICE LETTER COMPLETED. CM FAXED REFERRALS TO [facility], [facility], [facility], [facility]. CM WAITING ADMISSION DETERMINATIONS FROM [facility], [facility], [facility], [facility] AND [facility]. CM WAITING LEVEL 2 DONA SCREENING COMPLETION AND DETERMINATION. Brock Kathy, CASE MANAGEMENT Appended by Brock Chavez on 02/19/2018 16:07 WARD MAID: CM RECEIVED CALL FROM PT WHO REPORTS THAT HER FATHER CALLED [facility] WHO INFORMED HIM THAT HER MEDICAID WAS INACTIVE. CM CALLED EDWIN OF [facility] WHO CONFIRMED PT HAD LONGTERM CARE MEDICAID THAT ENDED. EDWIN INFORMED CM THAT THE [facility] WILL NEED TO REAPPLY FOR WIRE WEAVER CLOTH CARE MEDICAID, SHE IS NOT ABLE TO DO THAT APPLICATION. PT NOTIFIED. CM RECEIVED CALL FROM D[facility]OTHEA [facility] WHO DECLINED PT. PT HAS BEEN DECLINED FOR LONGTERM CARE FROM [facility] AND [facility]. CM WAITING ADMISSION DETERMINATIONS FROM [facility], [facility] AND [facility]. CM WAITING LEVEL 2 DONA SCREENING COMPLETION AND DETERMINATION. Brock Chavez, CASE MANAGEMENT Appended by Brock Chavez on 02/19/2018 16:55 WARD MAID: CM RECEIVED MESSAGE FROM AISHA [facility], PT HAS BEEN DECLINED. PT HAS BEEN DECLINED FOR WIRE WEAVER CLOTH CARE FROM [facility] AND [facility]. CM WAITING ADMISSION DETERMINATIONS FROM [facility], [facility] AND [facility]. CM WAITING LEVEL 2 DONA SCREENING COMPLETION AND DETERMINATION. Brock Chavez, CASE MANAGEMENT DCP- Discharge Planning Updated by [id number]: Brock Chavez on 02/17/18 2:[address] Patient Name: CHRISTINE NGUYEN Encounter No: [id number] : 1975 Primary Insurance: MEDICARE A & B Anticipated DC Date: Planned Disposition: Long-Term Facility External Planned Provider: [facility], MEDICARE REHAB BED DCP follow-up note: CM COMPLETED DONA THAT CM STARTED ON 02-15-18, DOCTOR AND PT SIGNATURES WERE OBTAINED. CM MET WITH PT IN ROOM TO DISCUSS DISCHARGE PLANNING AND NEEDS. PT REPORTS SHE IS NOT ABLE TO CARE FOR HERSELF AND HER PARENTS, WHOM SHE WAS LIVING WITH, ARE NOT ABLE TO EITHER. PT WOULD LIKE PLACMENT AT [facility]. PT HAS TALKED TO MYLA OF [facility] WHO TOLD HER THAT IT DEPENDS ON IF THE DOCTOR WILL TAKE HER BACK THERE OR NOT. PT REPORTS SHE HAS BEEN TO [facility], [facility] AND [facility] FOR REHAB AND LONGTERM CARE IN THE PAST. PT LEFT [facility] IN FEBRUARY OR MARCH OF THIS YEAR AND MOVED IN WITH HER PARENTS. PT'S FIRST CHOICE FOR REHAB AND WIRE WEAVER CLOTH CARE IS [facility], SECOND CHOICE IS [facility]. PT WILL NOT CONSIDER [facility] AGAIN. CHOICE COMPLETED AND SIGNED. IMPORTANT MESSAGE FROM MEDICARE PROVIDED AND DISCUSSED. PT REPORTS THE LAST DONA THAT WAS DONE THEY HAD TO DO A LEVEL 2 SCREENING. CM CALLED [facility], , LEFT MESSAGE ASKING FOR RETURN CALL. CM FAXED REFERRAL TO [facility] AT [phone]. CM FAXED COMPLETED DONA SCREENING AND SUPPORTING DOCUMENTS TO [facility] AT [phone]. CM WAITING ADMISSION DETERMINATION FROM [facility] AND DONA SCREENING COMPLETION. Brock Chavez CASE MANAGEMENT Appended by Brock Chavez on 02/17/2018 9:57 WARD MAID: CM RECEIVED CALL FROM [facility], , WHO INSTRUCTED CM TO SEND THE REFERRAL AND THEIR DOCTOR AND DIRECTOR WILL LOOK AT IT TO MAKE ADMISSION DETERMINATION. REFERRAL PREVIOUSLY FAXED TODAY TO [facility] AT [phone]. CM WAITING ADMISSION DETERMINATION FROM [facility] AND DONA SCREENING COMPLETION. Brock Chavez CASE MANAGEMENT Appended by Brock Chavez on 02/17/2018 15:44 WARD MAID: CM RECEIVED DONA SCREENING RESPONSE, PT WILL REQUIRE LEVEL 2 SCREENING WHICH MAY TAKE UP TO 9 (NINE) BUSINESS DAYS TO COMPLETE. CM FAXED DONA DETERMINATION REQUIRING LEVEL 2 SCREEN TO [facility] AT [phone]. CM WAITING ADMISSION DETERMINATION FROM [facility] AND DONA LEVEL 2 SCREENING COMPLETION WHICH CAN TAKE UP TO 9 (NINE) BUSINESS DAYS. TERRA Amato MANAGEMENT DCP- Discharge Planning Updated by [id number]: Misti Mccann on 02/12/18 5:[address] Patient Name: CHRISTINE NGUYEN Admission Status: ER Accout number: [id number] Admission Date: 02-11-2018 : 1975 Admission Diagnosis: Attending: DREW WANG Current LOS: 1 Anticipated DC Date: Planned Disposition: Long-Term Facility Primary Insurance: MEDICARE A & B Discharge Planning Comments: CM spoke with patient at bedside. Patient states she knows she can't return to her home. She is totally dependent of all her ADLs she is can feed herself but that is about all. APS has been notified of case. Patient is requesting to discharge to [facility]. CM will contact [facility]. CM will fax records to [facility] for possible placement when stable. CM will continue to follow and assist with discharge planning / needs. Drafter Refrigeration: Misti Hamiltonovidio [facility] - Discharge Planning Initial Assessment Updated by [id number]: Misti Mccann on 02/12/18 6:12 pm * Is the patient Alert and Oriented? Yes * PCP Dr. bueno * Pharmacy [place] or [facility] * Preadmission Environment Home with Family * ADLs Total Dependent * Equipment Wheelchair * List name and contact numbers for known caregivers / representatives who currently or will assist patient after discharge: Meggan Carlson mother [phone] * Verbal permission to speak to the caregivers and representatives has been obtained from the patient. N/A * Community resources currently utilized None * Additional services required to return to the preadmission environment? Yes * Can the patient safely return to the preadmission environment? No * Has this patient been hospitalized within the prior 30 days at any hospital? No External Providers External Provider: OTHER-OTHER Next Contact Date: Service Request Date: Service Type: Resolution: Reviewer: Comments: Coverage Notice Reviewer: [id number] Chavez Notice Issued Date-Time: 02/17/2018 8:10 Notice Type: IM Discharge Notice Notice Delivered To: Patient Relationship to Patient: Radio Operator Ground Name: Delivery Method: HAND - Hand Delivered [place] Days: Prior Verbal Notification: Recipient Understood Notice: Yes Recipient Signature: Yes Med Rec Note Co-signed by Attending: Coverage Notice Comment: Reviewer: [id number] Chavez Notice Issued Date-Time: 02/17/2018 8:10 Notice Type: Patient Choice Letter Notice Delivered To: Patient Relationship to Patient: Radio Operator Ground Name: Delivery Method: HAND - Hand Delivered [place] Days: Prior Verbal Notification: Recipient Understood Notice: Yes Recipient Signature: Yes Med Rec Note Co-signed by Attending: Coverage Notice Comment: 1- [facility] / 2- [facility] Reviewer: [id number] Sukumar Chavez Notice Issued Date-Time: 02/19/2018 9:30 Notice Type: Patient Choice Letter Notice Delivered To: Patient Relationship to Patient: Radio Operator Ground Name: Delivery Method: HAND - Hand Delivered [place] Days: Prior Verbal Notification: Recipient Understood Notice: Yes Recipient Signature: Yes Med Rec Note Co-signed by Attending: Coverage Notice Comment: ANY [place] NUSING HOME EXCEPT: [place] [facility] OR [facility]. Reviewer: [id number] - Brock Chavez Notice Issued Date-Time: 02/26/2018 12:50 Notice Type: IM Discharge Notice Notice Delivered To: Patient Relationship to Patient: Radio Operator Ground Name: Delivery Method: HAND - Hand Delivered [place] Days: Prior Verbal Notification: Recipient Understood Notice: Yes Recipient Signature: Yes Med Rec Note Co-signed by Attending: Coverage Notice Comment: Reviewer: [id number] - Erum Ray Notice Issued Date-Time: 03/08/2018 16:10 Notice Type: IM Discharge Notice Notice Delivered To: Patient Relationship to Patient: Self Radio Operator Ground Name: Delivery Method: HAND - Hand Delivered [place] Days: Prior Verbal Notification: Recipient Understood Notice: Yes Recipient Signature: Yes Med Rec Note Co-signed by Attending: Coverage Notice Comment: Last DP export: 03/08/18 3:25 p Patient Name: CHRISTINE NGUYEN Page [id number] at 1645 All edits/amendments must be made on the electronic document DICTATION DATE: 03/08/181643 PHARMACIST HELPER: KAYODE 03/08/181643 RPT#: [id number] DC DATE: STATUS: ADM IN [facility] [address] [place] [address] END OF REPORT
[2018-03-08] MEDS ORDERED: XANAX0.25 MG PO (17:55)
--- NOTE | 2018-03-08 19:45 | NUR ---
PAGED DR DUMONT TO CLARIFY QUANTITY OF XANAX TO DISPENSE TO CALL INTO PHARMACY. DR DUMONT NOT ARMED SECURITY PROFESSIONAL, DR SANZ WAS. SPOKE TO DR SANZ AND HE SAID TO DISPENSE XANAX 0.25 MG TABLETS, QUANTITY 90, 1-2 TABS Q8H PRN ANXIETY AND SEDATION.
--- NOTE | 2018-03-08 20:06 | NUR ---
Discussed discharge orders, medications and follow-up with patient. She is discharging with son to [place]. IV removed, tip intact. Patient discharged via wheelchair with family. All belongings sent with patient.
--- NOTE | 2018-03-09 07:45 | MORECARE ---
CASE MANAGEMENT DISCHARGE SUMMARY PATIENT: CHRISTINE NGUYEN UNIT: [id number] ADM DATE: 02/11/18 AGE: 42 : [birth year] SEX: F ROOM/BED: D.1212 AUTHOR: ABBEY ALVA PHYSICIAN: REFERRING PHYSICIAN: DREW WANG MD DATE OF SERVICE: 03/09/18 Discharge Plan Patient Name: CHRISTINE NGUYEN Facility: [facility]:[place] : 1975 Planned Disposition: [facility] Facility Anticipated Discharge Date: 02/26/18 Discharge Date: 03/08/2018 Expected LOS: 15 Initial Reviewer: [id number] Initial Review Date: 02/12/2018 Generated: 03/09/18 8:45 am Comments DCP- Discharge Planning Updated by [id number]: Erum Ray on 03/08/18 3:[address] CM received call back from Syvlia, field case manager with APS. Sylvia informed CM that APS did not have a "hold" on patient and that she was free to discharge. Patient's son is here to take patient to his home to live ([address] [place] [address]). CM explained and served DC IMM. CM will continue to follow and assist as needed with discharge planning / needs. DCP- Discharge Planning Updated by [id number]: Erum Ray on 03/08/18 10:[address] CM received message from Dr. Wang to set up patient's DME as requested to facilitate discharge for today. CM met with patient and family. Patient requesting wheelchair, (states she got one from [employer] in 2016 and it is falling apart) BSC, and Shower Chair. CM called [facility] regarding equipment. CM was informed that patient's Medicaid 01/26/18. Patient will be responsible for 20% copay on wheelchair for 13 month rental = $85.00 and BSC 20% copay $18.00. Shower Chair is not covered by Medicare and will cost patient $59.99. Patient stated she will order Shower Chair form [employer]. States she will pay the $85.00 copay for wheelchair and $18.00 copay for BSC. CM faxed records to [facility] as requested. Awaiting insurance auth. CM called APS regarding case # [id number] to inform field case manager of plans to discharge patient home with son today. Left Message for Sylvia Tyler at [phone]. Awaiting return call. CM will continue to follow and assist as needed with discharge planning / needs. DCP- Discharge Planning Updated by [email or web address]: Chey Moreno on 03/07/18 5:[address] CONTACT INFORMATION FOR ADAMARIS NGUYEN, SON [phone] OR [phone] DCP- Discharge Planning Updated by [email or web address]: Chey Moreno on 03/07/18 3:[address] LATE ENTRY 1530 PRIMARY NURSE ADVISED CM THAT THE PATIENT' SON, ADAMARIS NGUYEN, IS HERE FROM [place]. HE PLANS TO TAKE HIS MOTHER VIA CAR TO HIS HOME IN [place] THURSDAY THIS IS APPROXIMATELY AN EIGHT HOUR DRIVE. CM REVIEWED NOTES. ADVISED THE SON IT APPEARS [facility]PS IS INVOLVED IN THE CASE. WILL NEED TO COMMUNICATE WITH APS. PATIENT CANNOT BE ISCHARGED WITHOUT THEIR RELEASE. ADVISED THE APS STAFF WOULD BE BACK IN THE OFFICE THURSDAY. HE PLANS TO BE IN EARLY AM TO SPEAK WITH DR WANG. CM ALSO ADVISED STAFF TO INFORM HIM OF PATIENT NEEDS. WOULD LIKELY BE A DIFFICULT TRIP. PATIENT ALSO WOULD NOT HAVE A PHYSICIAN IMMEDIATELY. HE WOULD NEED A COPY OF THE PATIENT'S CHART IF PLAN IS ALLOWED FOR AN ACCEPTING MD. APS WILL NEED TO BE NOTIFIED. DCP- Discharge Planning Updated by [id number]: Sylvia Silva on 03/02/18 4:[address] Patient Name: CHRISTINE NGUYEN Encounter No: [id number] : 1975 Primary Insurance: MEDICARE A & B Anticipated DC Date: 02-26-2018 Planned Disposition: [facility] Facility External Planned Provider: [facility], MEDICARE REHAB BED DCP follow-up note: NADIA RECEIVED CALL FROM SELVIN KAN [facility] WHO ASKED FOR CM TO FAX DONA APPROVAL TO HER AND SHE WILL CHECK TO SEE IF PT'S BANK STATEMENTS HAVE BEEN RECEIVED BY FACILITY. CM FAXED DONA APPROVAL TO [facility] AT [phone]. PT HAS BEEN DECLINED FOR CORRECTION CARE AT [facility], [facility], [facility], [facility], [facility] AND [facility]. DONA SCREENING COMPLETED AND CLEARED FOR PENITENTIARY FACILITY ENTRY.CM WAITING ADMISSION DETERMINATION FROM [facility] WHO IS WORKING ON MEDICAID FOR CORRECTION CARE, PT IS TO PROVIDE THREE MONTHS OF DETAILED BANK STATEMENTS. Brock Chavez, CASE MANAGEMENT Appended by Sylvia Silva on 03/02/2018 17:04 TACK PULLER MACHINE: CM SPOKE WITH PATIENT AND SHE STATES "SIMPLY PAYED" WHICH IS HER ONLY BANK STATEMENTS IS BEING EMAILED TO [facility]. DCP- Discharge Planning Updated by [id number]: Brock Chavez on 03/01/18 3:[address] Patient Name: CHRISTINE NGUYEN Encounter No: [id number] : 1975 Primary Insurance: MEDICARE A & B Anticipated DC Date: 02-26-2018 Planned Disposition: [facility] Facility External Planned Provider:[facility], MEDICARE REHAB BED DCP follow-up note: CM FAXED UPDATE TO [facility] AT [phone]. CM NOTIFIED PT. PT HAS BEEN DECLINED FOR MEDIA EXECUTIVE CARE AT [facility]. DONA SCREENING COMPLETED AND CLEARED FOR PENITENTIARY FACILITY ENTRY.CM WAITING ADMISSION DETERMINATION FROM [facility] WHO IS WORKING ON MEDICAID FOR CORRECTION CARE. Brock Chavez CASE MANAGEMENT DCP- Discharge Planning Updated by [id number]: Brock Chavez on 02/26/18 12:[address] Patient Name: CHRISTINE NGUYEN Encounter No: [id number] : 1975 Primary Insurance: MEDICARE A & B Anticipated DC Date: 02-26-2018 Planned Disposition: [facility] Facility External Planned Provider: [facility], MEDICARE REHAB BED DCP follow-up note: CM RECEIVED DONA RESPONSE, PT IS CLEARED TO ENTER PENITENTIARY BY [facility]. CM CALLED SELVIN OF [facility], , NOTIFIED OF DONA CLEARANCE AND REQUESTED ADMISSION DETERMINATION. CM FAXED DONA CLEARANCE LETTER AND UPDATE TO [facility] AT [phone]. CM NOTIFIED PT, PROVIDED AND EXPLAINED IMPORTANT MESSAGE FROM MEDICARE. PT HAS BEEN DECLINED FOR MEDIA EXECUTIVE CARE AT [facility], [facility]. DONA SCREENING COMPLETED AND CLEARED FOR PENITENTIARY FACILITY ENTRY.CM WAITING ADMISSION DETERMINATION FROM [facility] WHO IS WORKING ON MEDICAID FOR CORRECTION CARE. Brock Chavez CASE MANAGEMENT DCP- Discharge Planning Updated by [id number]: Brock Chavez on 02/24/18 10:[address] Patient Name: CHRISTINE NGUYEN Encounter No: [id number] : 1975 Primary Insurance: MEDICARE A & B Anticipated DC Date: Planned Disposition: [facility] Facility External Planned Provider: [facility], MEDICARE REHAB BED DCP follow-up note: CM RECEIVED CALL FROM SELVIN [facility], THEY WILL VISIT WITH PT IN HOSPITAL TODAY TO ASSESS PT FOR ADMISSION. CM HAS NOT YET RECEIVED LEVEL 2 DONA DETERMINATION. PT HAS BEEN DECLINED FOR MEDIA EXECUTIVE CARE AT [facility], [facility] AND [facility]. CM WAITING ADMISSION DETERMINATION FROM [facility]. CM WAITING LEVEL 2 DONA SCREENING COMPLETION AND DETERMINATION. Brock Chavez CASE NOAH DCP- Discharge Planning Updated by [email or web address]: Brock Chavez on 02/22/18 2:[address] Patient Name: CHRISTINE NGUYEN Encounter No: [id number] : 1975 Primary Insurance: MEDICARE A & B Anticipated DC Date: Planned Disposition: [facility] Facility External Planned Provider: [facility] DCP follow-up note: CM RECEIVED CALL FROM CHETNA, PT'S STEP FATHER WHO REPORTS HE CALLED [facility] AND THEY TOLD HIM THE REASON THEY CANNOT ACCEPT IS THAT PT'S MEDIA EXECUTIVE CARE MEDICAID WAS INACTIVE AND CM NEEDED TO FILE FOR CORRECTION CARE MEDICAID. CM EXPLAINED THAT THERE ARE OTHER FACTORS USED IN MAKING THEIR DECISION AND THAT THE [facility], NOT CM, APPLIES FOR CORRECTION CARE MEDICAID. CHETNA STATES HE AND PT WANT HER TO GO TO [facility]; CM EXPLAINED THAT THE FACILITY HAD SAID NO; CHETNA ASKED FOR CM TO CALL THEM BACK AND HE WILL DO THE SAME. CM CALLED MARIXA OF [facility], , LEFT DETAILED MESSAGE ASKING FOR RETURN CALL. CM RECEIVED CALL FROM SYLVIA KAN [facility], SHE WILL VISIT WITH AND ASSESS PT FOR LEVEL 2 DONA SCREENING TODAY AFTER NOON. PT HAS BEEN DECLINED FOR CORRECTION CARE FROM [facility] AND [facility]. CM WAITING ADMISSION DETERMINATIONS FROM [facility], [facility]. CM WAITING LEVEL 2 DONA SCREENING COMPLETION AND DETERMINATION. Brock Chavez, CASE MANAGEMENT Appended by Brock Chavez on 02/22/2018 15:16 TACK PULLER MACHINE: CM SPOKE TO DOROTHEA OF [facility], THEY WILL NOT ACCEPT PT. CM SPOKE TO [facility], THEY CANNOT MEET PT'S NEEDS. CM SPOKE TO NATHALIE OF [facility], THEY CANNOT TAKE PT. CM CALLED AND SPOKE TO DAVY [facility] WHO INFORMED CM THEY ARE STILL CONSIDERING PT FOR PLACEMENT AND WILL VISIT WITH PT ON 02-24-18. PT NOTIFIED OF ABOVE; PT CONTINUES TO DECLINE REFERRAL TO [facility] AND UNDERSTANDS IF [facility] DECLINES, CM WILL HAVE TO SEND REFERRAL OUTSIDE OF [place] FOR PLACEMENT CONSIDERATION. PT HAS BEEN DECLINED FOR CORRECTION CARE AT [facility], [facility], [facility], [facility]. CM WAITING ADMISSION DETERMINATION FROM [facility]. CM WAITING LEVEL 2 DOAN SCREENING COMPLETION AND DETERMINATION. Brock Chavez, CASE MANAGEMENT DCP- Discharge Planning Updated by [id number]: Brock Chavez on 02/19/18 3:[address] Patient Name: CHRISTINE NGUYEN Encounter No: [id number] : 1975 Primary Insurance: MEDICARE A & B Anticipated DC Date: Planned Disposition: [facility] Facility External Planned Provider: ANY ACCEPTING [place] [facility], MEDICARE REHAB BED DCP follow-up note: CM RECEIVED CALL FROM [facility]IXA [facility], THEY WILL NOT ACCEPT DUE TO FINANCIAL CONCERNS. CM SPOKE TO DR. WANG AND PROVIDED UPDATE. CM SPOKE TO PT IN ROOM WHO WAS UPSET STATING SHE PAID THEM THE MONEY THAT WAS OWED AND THE ONLY [facility] SHE OWES MONEY TO IS [facility] WHICH SHE OWES $21,000. CM DISCUSSED NURSING FACILITY OPTIONS IN [place], PT ASKED THAT REFERRALS BE SENT TO ALL LOCAL NURSING [facility] EXCEPT [facility] AND [facility]. CHOICE LETTER COMPLETED. CM FAXED REFERRALS TO [facility], [facility], [facility], [facility]. CM WAITING ADMISSION DETERMINATIONS FROM [facility], [facility], [facility], [facility] AND [facility]. CM WAITING LEVEL 2 DONA SCREENING COMPLETION AND DETERMINATION. Brock Chavez, CASE MANAGEMENT Appended by Brock Chavez on 02/19/2018 16:07 TACK PULLER MACHINE: CM RECEIVED CALL FROM PT WHO REPORTS THAT HER FATHER CALLED [facility] WHO INFORMED HIM THAT HER MEDICAID WAS INACTIVE. CM CALLED EDWIN OF [facility] [place] WHO CONFIRMED PT HAD MEDIA EXECUTIVE CARE MEDICAID THAT ENDED. EDWIN INFORMED CM THAT THE [facility] WILL NEED TO REAPPLY FOR MEDIA EXECUTIVE CARE MEDICAID, SHE IS NOT ABLE TO DO THAT APPLICATION. PT NOTIFIED. CM RECEIVED CALL FROM [facility]OT[facility]A [facility] WHO DECLINED PT. PT HAS BEEN DECLINED FOR CORRECTION CARE FROM [facility] AND [facility]. CM WAITING ADMISSION DETERMINATIONS FROM [facility], [facility] AND [facility]. CM WAITING LEVEL 2 DONA SCREENING COMPLETION AND DETERMINATION. Brock Chavez, CASE MANAGEMENT Appended by Brock Chavez on 02/19/2018 16:55 TACK PULLER MACHINE: CM RECEIVED MESSAGE FROM [facility], PT HAS BEEN DECLINED. PT HAS BEEN DECLINED FOR CORRECTION CARE FROM [facility] AND [facility]. CM WAITING ADMISSION DETERMINATIONS FROM [facility], [facility] AND [facility]. CM WAITING LEVEL 2 DONA SCREENING COMPLETION AND DETERMINATION. Brock Chavez, CASE MANAGEMENT DCP- Discharge Planning Updated by [id number]: Brcok Chavez on 02/17/18 2:[address] Patient Name: CHRISTINE NGUYEN Encounter No: [id number] : 1975 Primary Insurance: MEDICARE A & B Anticipated DC Date: Planned Disposition: [facility] Facility External Planned Provider: [facility], MEDICARE REHAB BED DCP follow-up note: CM COMPLETED DONA THAT CM STARTED ON 02-15-18, DOCTOR AND PT SIGNATURES WERE OBTAINED. CM MET WITH PT IN ROOM TO DISCUSS DISCHARGE PLANNING AND NEEDS. PT REPORTS SHE IS NOT ABLE TO CARE FOR HERSELF AND HER PARENTS, WHOM SHE WAS LIVING WITH, ARE NOT ABLE TO EITHER. PT WOULD LIKE PLACMENT AT [facility]. PT HAS TALKED TO MYLA OF [facility] WHO TOLD HER THAT IT DEPENDS ON IF THE DOCTOR WILL TAKE HER BACK THERE OR NOT. PT REPORTS SHE HAS BEEN TO [facility] AND [facility] FOR REHAB AND MEDIA EXECUTIVE CARE IN THE PAST. PT LEFT [facility] IN FEBRUARY OR MARCH OF THIS YEAR AND MOVED IN WITH HER PARENTS. PT'S FIRST CHOICE FOR REHAB AND MEDIA EXECUTIVE CARE IS [facility], SECOND CHOICE IS [facility]. PT WILL NOT CONSIDER [facility] AGAIN. CHOICE COMPLETED AND SIGNED. IMPORTANT MESSAGE FROM MEDICARE PROVIDED AND DISCUSSED. PT REPORTS THE LAST DONA THAT WAS DONE THEY HAD TO DO A LEVEL 2 SCREENING. CM CALLED [facility], , LEFT MESSAGE ASKING FOR RETURN CALL. CM FAXED REFERRAL TO [facility] AT [phone]. CM FAXED COMPLETED DONA SCREENING AND SUPPORTING DOCUMENTS TO [facility] AT [phone]. CM WAITING ADMISSION DETERMINATION FROM [facility] AND DONA SCREENING COMPLETION. Brock Chavez CASE MANAGEMENT Appended by Brock Chavez on 02/17/2018 9:57 TACK PULLER MACHINE: CM RECEIVED CALL FROM [facility], , WHO INSTRUCTED CM TO SEND THE REFERRAL AND THEIR DOCTOR AND DIRECTOR WILL LOOK AT IT TO MAKE ADMISSION DETERMINATION. REFERRAL PREVIOUSLY FAXED TODAY TO [facility] AT [phone]. CM WAITING ADMISSION DETERMINATION FROM [facility] AND DONA SCREENING COMPLETION. Brock Chavez CASE MANAGEMENT Appended by Brock Chavez on 02/17/2018 15:44 TACK PULLER MACHINE: CM RECEIVED DONA SCREENING RESPONSE, PT WILL REQUIRE LEVEL 2 SCREENING WHICH MAY TAKE UP TO 9 (NINE) BUSINESS DAYS TO COMPLETE. CM FAXED DONA DETERMINATION REQUIRING LEVEL 2 SCREEN TO [facility] AT [phone]. CM WAITING ADMISSION DETERMINATION FROM [facility] AND DONA LEVEL 2 SCREENING COMPLETION WHICH CAN TAKE UP TO 9 (NINE) BUSINESS DAYS. TERRA Amato MANAGEMENT DCP- Discharge Planning Updated by [id number]: Misti Mccann on 02/12/18 5:[address] Patient Name: CHRISTINE NGUYEN Admission Status: ER Accout number: [id number] Admission Date: 02-11-2018 : 1975 Admission Diagnosis: Attending: DREW WANG Current LOS: 1 Anticipated DC Date: Planned Disposition: [facility] Primary Insurance: MEDICARE A & B Discharge Planning Comments: CM spoke with patient at bedside. Patient states she knows she can't return to her home. She is totally dependent of all her ADLs she is can feed herself but that is about all. APS has been notified of case. Patient is requesting to discharge to [facility]. CM will contact [facility]. CM will fax records to [facility] for possible placement when stable. CM will continue to follow and assist with discharge planning / needs. Machinery Mechanic: Misti Mccann AMANUEL - Discharge Planning Initial Assessment Updated by [id number]: Misti Mccann on 02/12/18 6:12 pm * Is the patient Alert and Oriented? Yes * PCP Dr. bueno * Pharmacy [facility] * Preadmission Environment Home with Family * ADLs Total Dependent * Equipment Wheelchair * List name and contact numbers for known caregivers / representatives who currently or will assist patient after discharge: Meggan Carlson mother [phone] * Verbal permission to speak to the caregivers and representatives has been obtained from the patient. N/A * Community resources currently utilized None * Additional services required to return to the preadmission environment? Yes * Can the patient safely return to the preadmission environment? No * Has this patient been hospitalized within the prior 30 days at any hospital? No Coverage Notice Reviewer: [id number] Chavez Notice Issued Date-Time: 02/17/2018 8:10 Notice Type: IM Discharge Notice Notice Delivered To: Patient Relationship to Patient: Direct Service Professional Name: Delivery Method: HAND - Hand Delivered Lashonda Days: Prior Verbal Notification: Recipient Understood Notice: Yes Recipient Signature: Yes Med Rec Note Co-signed by Attending: Coverage Notice Comment: Reviewer: [id number] Chavez Notice Issued Date-Time: 02/17/2018 8:10 Notice Type: Patient Choice Letter Notice Delivered To: Patient Relationship to Patient: Direct Service Professional Name: Delivery Method: HAND - Hand Delivered Lashonda Days: Prior Verbal Notification: Recipient Understood Notice: Yes Recipient Signature: Yes Med Rec Note Co-signed by Attending: Coverage Notice Comment: 1- [facility] / 2- [facility] Reviewer: [id number] Chavez Notice Issued Date-Time: 02/19/2018 9:30 Notice Type: Patient Choice Letter Notice Delivered To: Patient Relationship to Patient: Direct Service Professional Name: Delivery Method: HAND - Hand Delivered Lashonda Days: Prior Verbal Notification: Recipient Understood Notice: Yes Recipient Signature: Yes Med Rec Note Co-signed by Attending: Coverage Notice Comment: ANY [place] NUSING HOME EXCEPT: [facility] OR [facility]. Reviewer: [id number] - Brock Chavez Notice Issued Date-Time: 02/26/2018 12:50 Notice Type: IM Discharge Notice Notice Delivered To: Patient Relationship to Patient: Direct Service Professional Name: Delivery Method: HAND - Hand Delivered Lashonda Days: Prior Verbal Notification: Recipient Understood Notice: Yes Recipient Signature: Yes Med Rec Note Co-signed by Attending: Coverage Notice Comment: Reviewer: [id number] - Erum Ray Notice Issued Date-Time: 03/08/2018 16:10 Notice Type: IM Discharge Notice Notice Delivered To: Patient Relationship to Patient: Self Direct Service Professional Name: Delivery Method: HAND - Hand Delivered Lashonda Days: Prior Verbal Notification: Recipient Understood Notice: Yes Recipient Signature: Yes Med Rec Note Co-signed by Attending: Coverage Notice Comment: Last DP export: 03/08/18 3:45 p Patient Name: CHRISTINE NGUYEN Page [id number] at 0745 All edits/amendments must be made on the electronic document DICTATION DATE: 03/09/1845 DATA ASSISTANT: KAYODE 03/09/18 0745 RPT#: [id number] DC DATE:03/08/18 STATUS: DIS IN [facility] [address] [place] [address] END OF REPORT
== END 2018-03-08 20:09 | disposition home or self-care (01) | DRG 606 ==
LOC: D.ER 17:14 → D.ICU 20:29 → D.M2 20:29 → D.M3 20:29 → D.ICU 21:48 → D.M2 02-14 10:37 → D.SDCHOLD 02-20 17:36 → D.M2 02-20 17:38 → D.SDCHOLD 02-24 14:07 → D.M2 02-24 17:27 → D.WS 03-01 18:20 → D.M3 03-02 14:57
PROVIDERS: Family Medicine; ADMIT Family Medicine
DX: B37.2 Candidiasis of skin and nail (principal); E11.10 Type 2 diabetes mellitus with ketoacidosis without coma; N39.0 Urinary tract infection, site not specified; I69.354 Hemiplegia and hemiparesis following cerebral infarction affecting left non-dominant side; F31.30 Bipolar disorder, current episode depressed, mild or moderate severity, unspecified; E87.6 Hypokalemia; E86.0 Dehydration; R00.0 Tachycardia, unspecified; F41.8 Other specified anxiety disorders

== ENCOUNTER 2019-03-15 21:10 | Inpatient (IN) | payer MEDICARE ==
[~2019-03-15] VITALS: Ht 157.5 cm; Wt 76.9 kg
[~2019-03-15 21:10] MED LIST changes: +THERAGRAN M [BK1 TAB PO; +XANAX0.25 MG PO
--- NOTE | 2019-03-15 21:55 | NUR ---
INSULIN GIVEN AT THIS TIME. FSBS READS HI (OVER 600).
[2019-03-15 21:56] LABS: HEMATOCRIT 45.8 % (36.0-48.0); HEMOGLOBIN 16.5 g/dL (12-16); MCH 31.2 pg (26.0-34.0); MCV 86.6 fL (80.0-100.0); MEAN PLATELET VOLUME 12.1 fL (7.4-10.4); PLATELET COUNT 430 10x3/uL (130-400); RBC 5.29 10x6/uL (4.00-5.40); RDW 12.8 % (11.5-14.5); WBC 30.4 10x3/uL (4.8-10.8)
[2019-03-15 22:04] LABS: KETONE - SERUM MODERATE mg/dL (NEGATIVE)
[2019-03-15 22:14] LABS: ALBUMIN 3.2 g/dL (3.4-5.0); ALKALINE PHOSPHATASE 143 U/L (46-116); ALT (SGPT) 13 U/L (10-68); BILIRUBIN - TOTAL 0.55 mg/dL (0.2-1.3); CALCIUM 9.1 mg/dL (8.5-10.1); CHLORIDE - SERUM 92 mmol/L (98-107); CKMB 0.7 U/L (0.0-3.6); CREATINE KINASE 23 UL (21-215); CREATININE - SERUM 1.6 mg/dL (0.6-1.3); PRO BNP 341 pg/mL (0-125); PROTEIN - SERUM 7.7 g/dL (6.4-8.2); SODIUM 134 mmol/L (136-145); TROPONIN-I < 0.017 ng/mL (0.000-0.060); UREA NITROGEN 19 mg/dL (7-18); eGFR NON AFRICAN AMERICAN 37 mL/min (90-120)
[2019-03-15 22:25] LABS: CALC OSMOLALITY 303 mosm/kg (275-300)
[2019-03-15 22:31] LABS: LYMPHOCYTES 9 % (15-50); MONOCYTES 1 % (2-11); NEUTROPHILS 89 % (40-80); PLATELET ESTIMATE NORMAL
[2019-03-15 22:45] LABS: CARBON DIOXIDE 3.6 mmol/L (21.0-32.0); GLUCOSE 708 mg/dL (74-106); POTASSIUM - SERUM 2.1 mmol/L (3.5-5.1)
[2019-03-15 23:11] LABS: APTT 22.4 SECONDS (22.8-39.4); INR 1.16 (0.85-1.17); PROTIME 14.8 SECONDS (11.6-15.0)
--- NOTE | 2019-03-15 23:50 | NUR ---
UNABLE TO OBTAIN SPUTUM SAMPLE AT THIS TIME.
[2019-03-16] VITALS (22 sets, daily range): BP systolic 83–127; BP diastolic 52–86; Ht 157.5 cm; Wt 76.9 kg
[2019-03-16 00:36] LABS: APPEARANCE SL CLDY (CLEAR); BILIRUBIN NEGATIVE (NEGATIVE); COLOR YELLOW (YELLOW); GLUCOSE 1000 mg/dL (NEGATIVE); KETONE MODERATE mg/dL (NEGATIVE); NITRITE NEGATIVE (NEGATIVE); PROTEIN 3+ mg/dL (NEGATIVE); UROBILINOGEN NORMAL (NORMAL)
[2019-03-16 00:38] LABS: BACTERIA MODERATE /hpf (NEGATIVE); EPITHELIAL CELLS 0-5 /hpf (0-5); MUCUS <1+ /lpf (NONE SEEN); RED CELLS - URINE 0-5 /hpf (0-5); YEAST >1+ /hpf (NONE SEEN)
--- NOTE | 2019-03-16 01:30 | NUR ---
Received pt from ED at this time via strecther to room 2310. Attached pt to monitors. Admission assessment/history completed see flowsheet for details. No needs noted at this time. No s/s of distress. Will continue to monitor.
--- NOTE | 2019-03-16 03:00 | NUR ---
Reassessment completed, see flowsheet for details. Pt is laying in bed with eyes closed at this time. No s/s of distress noted. Will continue to monitor.
[2019-03-16 03:25] LABS: CREATININE - SERUM 1.4 mg/dL (0.6-1.3); MAGNESIUM - SERUM 1.7 mg/dL (1.8-2.4)
[2019-03-16 03:26] LABS: ANION GAP 27.4 mmol/L (8-16); CARBON DIOXIDE 12.6 mmol/L (21.0-32.0)
--- NOTE | 2019-03-16 05:00 | NUR ---
Pt is laying in bed with eyes closed. NO needs voiced. No s/s of distress. Will continue to monitor.
[2019-03-16 07:49] LABS: CALCIUM 9.1 mg/dL (8.5-10.1); CREATININE - SERUM 1.3 mg/dL (0.6-1.3); MAGNESIUM - SERUM 1.6 mg/dL (1.8-2.4)
[2019-03-16 07:50] LABS: ANION GAP 17.4 mmol/L (8-16); CARBON DIOXIDE 18.9 mmol/L (21.0-32.0)
[2019-03-16 07:51] LABS: POTASSIUM - SERUM 2.3 mmol/L (3.5-5.1)
--- NOTE | 2019-03-16 09:26 | NUR ---
DR FAJARDO AT BEDSIDE SPEAKING WITH PATIENT.
[2019-03-16 09:47] LABS: HEMATOCRIT 41.2 % (36.0-48.0); HEMOGLOBIN 15.1 g/dL (12-16); MCH 30.6 pg (26.0-34.0); MCHC 36.7 g/dL (31.0-37.0); MCV 83.4 fL (80.0-100.0); MEAN PLATELET VOLUME 12.1 fL (7.4-10.4); PLATELET COUNT 358 10x3/uL (130-400); RBC 4.94 10x6/uL (4.00-5.40); RDW 12.9 % (11.5-14.5); WBC 25.5 10x3/uL (4.8-10.8)
[2019-03-16 10:43] LABS: ANION GAP 15.3 mmol/L (8-16); CALCIUM 8.7 mg/dL (8.5-10.1); CARBON DIOXIDE 16.8 mmol/L (21.0-32.0); CREATININE - SERUM 1.2 mg/dL (0.6-1.3); MAGNESIUM - SERUM 1.5 mg/dL (1.8-2.4)
[2019-03-16 10:49] LABS: POTASSIUM - SERUM 3.1 mmol/L (3.5-5.1)
[2019-03-16 11:39] LABS: BASOPHILS 1 % (0-2); LYMPHOCYTES 13 % (15-50); MONOCYTES 8 % (2-11); NEUTROPHILS 76 % (40-80); PLATELET ESTIMATE NORMAL
[2019-03-16 14:50] LABS: ANION GAP 13.3 mmol/L (8-16); CALCIUM 9.1 mg/dL (8.5-10.1); CARBON DIOXIDE 20.7 mmol/L (21.0-32.0); CREATININE - SERUM 1.2 mg/dL (0.6-1.3); MAGNESIUM - SERUM 1.5 mg/dL (1.8-2.4)
--- NOTE | 2019-03-16 16:14 | NUR ---
INSULIN GTT STOPPED PER VERBAL ORDER FROM DR FAJARDO WHEN WAS AT PATIENT BEDSIDE THIS AM. WAS INSTRUCTED TO DC INSULIN GTT WHEN PT UNDER 150 AND START PT HOME MEDICATION REGIMEN OF HIGH RESISTANCE SS AND LANTUS.
--- NOTE | 2019-03-16 17:08 | MORECARE ---
CASE MANAGEMENT DISCHARGE SUMMARY PATIENT: CHRISTINE NGUYEN UNIT: [id number] ADM DATE: 03/16/19 AGE: 43 : [birth year] SEX: F ROOM/BED: D.2310 AUTHOR: ARTIE,DOC PHYSICIAN: REFERRING PHYSICIAN: KAYA FAJARDO MD DATE OF SERVICE: 03/16/19 Discharge Plan Patient Name: CHRISTINE NGUYEN Facility: [facility]:[place] : 1975 Planned Disposition: Home Anticipated Discharge Date: Discharge Date: Expected LOS: Initial Reviewer: [id number] Initial Review Date: 03/16/2019 Generated: 03/16/19 6:08 pm Comments DCP- Discharge Planning Updated by [id number]: Misti Mccann on 03/16/19 3:[address] Patient Name: CHRISTINE NGUYEN Admission Status: ER Accout number: [id number] Admission Date: 03-16-2019 : 1975 Admission Diagnosis: Attending: TANA, Current LOS: 1 Anticipated DC Date: Planned Disposition: Primary Insurance: MEDICARE A & B Discharge Planning Comments: CM met with patient to complete initial dc planning assessment. CM educated patient on the CM role and verbal consent given by patient to complete assessment. Patient lives at home with her fianc? where she is independent with her care. At discharge patient plans to return home and feels this is a safe discharge. CM discussed availability of home health, rehab services, and medical equipment. Patient stated she would have family drive her home. Patient states she has glucometer but it has quit working. CM explained that she could get a glucometer and strips for 20.00 @ [facility]. CM asked if she is able to obtain her insulin and stated "yes" Patient denied known discharge needs at this time. CM will continue to follow and will assist as needed with dc plans/needs. Bone Crusher: Misti Mccann DCPIA - Discharge Planning Initial Assessment Updated by [id number]: Misti Mccann on 03/16/19 5:02 pm * Is the patient Alert and Oriented? Yes * How many steps to enter\\exit or inside your home? * PCP [place] * Pharmacy [facility], [place], [place] * Preadmission Environment Home with Family * ADLs Independent * Equipment Glucometer * List name and contact numbers for known caregivers / representatives who currently or will assist patient after discharge: JORDAN KANG [phone] * Verbal permission to speak to the caregivers and representatives has been obtained from the patient. Yes * Community resources currently utilized None * Additional services required to return to the preadmission environment? No * Can the patient safely return to the preadmission environment? Yes * Has this patient been hospitalized within the prior 30 days at any hospital? No Patient Name: CHRISTINE NGUYEN Page [id number] at 1708 All edits/amendments must be made on the electronic document DICTATION DATE: 03/16/191707 [employer] SALES LEADER: KAYODE 03/16/191707 RPT#: [id number] DC DATE: STATUS: ADM IN [facility] [address] [place] [address] END OF REPORT
[2019-03-16 19:16] LABS: CALCIUM 8.6 mg/dL (8.5-10.1); CARBON DIOXIDE 21.2 mmol/L (21.0-32.0); MAGNESIUM - SERUM 1.5 mg/dL (1.8-2.4); POTASSIUM - SERUM 3.2 mmol/L (3.5-5.1)
--- NOTE | 2019-03-16 20:00 | NUR ---
SHIFT ASSESSMENT COMPLETE, SEE FLOWSHEET. SECOND DOSE OF MAG INFUSING.
--- NOTE | 2019-03-16 22:30 | NUR ---
PATIENT BATHED WITH CHG. LINENS CHANGED. 1ST STEP OVERLAY IN PLACE. REPOSITIONED FOR COMFORT.
[2019-03-16 22:34] LABS: ANION GAP 11.3 mmol/L (8-16); CALCIUM 8.2 mg/dL (8.5-10.1); CARBON DIOXIDE 21.2 mmol/L (21.0-32.0); CREATININE - SERUM 0.9 mg/dL (0.6-1.3); POTASSIUM - SERUM 3.5 mmol/L (3.5-5.1)
[2019-03-16 22:39] LABS: MAGNESIUM - SERUM 2.3 mg/dL (1.8-2.4)
--- NOTE | 2019-03-16 23:00 | NUR ---
REASSESSMENT COMPLETED. PATIENT RESTING IN BED WITH EYES OPEN. NO SIGNS OF DISTRESS. WILL CONTINUE TO MONITOR.
[2019-03-17] VITALS (24 sets, daily range): BP systolic 76–108; BP diastolic 36–76
--- NOTE | 2019-03-17 01:06 | NUR ---
BILLY PALENCIA APN NOTIFIED OF HYPOTENSION, NEW ORDERS RECEIVED AND NOTED.
[2019-03-17 02:41] LABS: CALC OSMOLALITY 270 mosm/kg (275-300); CALCIUM 7.9 mg/dL (8.5-10.1); CARBON DIOXIDE 22.6 mmol/L (21.0-32.0); CHLORIDE - SERUM 106 mmol/L (98-107); CREATININE - SERUM 0.8 mg/dL (0.6-1.3); POTASSIUM - SERUM 3.1 mmol/L (3.5-5.1); SODIUM 135 mmol/L (136-145); UREA NITROGEN 8 mg/dL (7-18); eGFR NON AFRICAN AMERICAN 82 mL/min (90-120)
[2019-03-17 02:48] LABS: GLUCOSE 149 mg/dL (74-106)
--- NOTE | 2019-03-17 03:40 | NUR ---
REASSESSMENT COMPLETED. PATIENT RESTING IN BED WITH EYES CLOSED. NO SIGNS OF DISTRESS. BED IN LOWEST POSTION. SIDE RAILS UP X2. CALL LIGHT IN REACH. WILL CONTINUE TO MONITOR.
--- NOTE | 2019-03-17 05:16 | NUR ---
PATIENT RESTING IN BED WITH EYES CLOSED. NO SIGNS OF DISTRESS. BED IN LOWEST POSITION. SIDE RAILS UP X2. CALL LIGHT IN REACH. WILL CONTINUE TO MONITOR.
[2019-03-17 06:42] LABS: BASOPHILS 0.3 % (0-2); EOSINOPHILS 1.5 % (0-7); HEMATOCRIT 35.4 % (36.0-48.0); HEMOGLOBIN 13.1 g/dL (12-16); IMMATURE GRANULOCYTES 0.3 % (0-5); LYMPHOCYTES 24.4 % (15-50); MCH 30.5 pg (26.0-34.0); MCV 82.3 fL (80.0-100.0); MEAN PLATELET VOLUME 10.8 fL (7.4-10.4); MONOCYTES 4.1 % (2-11); NEUTROPHILS 69.4 % (40-80); RDW 13.1 % (11.5-14.5)
[2019-03-17 06:45] LABS: PLATELET COUNT 197 10x3/uL (130-400); WBC 11.2 10x3/uL (4.8-10.8)
[2019-03-17 06:48] LABS: KETONE - SERUM NEGATIVE (NEGATIVE)
[2019-03-17 07:32] LABS: CALC OSMOLALITY 280 mosm/kg (275-300); CARBON DIOXIDE 21.5 mmol/L (21.0-32.0); CHLORIDE - SERUM 108 mmol/L (98-107); CREATININE - SERUM 0.7 mg/dL (0.6-1.3); GLUCOSE 169 mg/dL (74-106); POTASSIUM - SERUM 3.3 mmol/L (3.5-5.1); SODIUM 140 mmol/L (136-145); UREA NITROGEN 7 mg/dL (7-18); eGFR NON AFRICAN AMERICAN > 90 mL/min (90-120)
[2019-03-17 07:36] LABS: PHOSPHOROUS 0.6 mg/dL (2.5-4.9)
--- NOTE | 2019-03-17 07:38 | NUR ---
CALLED PHARMACY FOR BRITTNEY
--- NOTE | 2019-03-17 09:45 | NUR ---
PATIENT IN CHAIR AT THIS TIME WITH PHYSICAL THERAPY. LINEN REPLACED. CHG BATH DONE. PATIENT WAS MODERATE ASSIST WITH PT. STATES SHE USES A WHEELCHAIR TO GET AROUND AT HOME. WILL CONTINUE TO MONITOR PATIENT
--- NOTE | 2019-03-17 10:51 | NUR ---
RADHA'Mile FAJARDO
--- NOTE | 2019-03-17 11:55 | NUR ---
lunch tray provided. patient ambulated to bedside commode. no urination or bm at this time. vss. blood pressure increasing to 109/75. alert and oriented. see reassessment. no changes noted. educated patient on why we must stay in chair longer than being in bed to prevent pressure ulcers. patient verbalized understanding. will continue to monitor.
--- NOTE | 2019-03-17 14:17 | NUR ---
patietn incontinent of urine.. linen change and chg bath provided.
[2019-03-17 15:32] LABS: PHOSPHOROUS 1.6 mg/dL (2.5-4.9); POTASSIUM - SERUM 3.8 mmol/L (3.5-5.1)
--- NOTE | 2019-03-17 17:43 | NUR ---
pads changed from underneath patient
--- NOTE | 2019-03-17 19:58 | NUR ---
PUREWICK FEMALE CATH PLACED TO HELP PATIENT WITH URINATION. PATIENT STATES SHE CAN NOT GET UP EASILY TO BSC. PATIENT VOIDS CL YELLOW URINE AND PUREWICK IS WORKING PROPERLY.
[2019-03-18] VITALS (17 sets, daily range): BP systolic 80–111; BP diastolic 51–79
[2019-03-18 03:39] LABS: BASOPHILS 0.5 % (0-2); EOSINOPHILS 2.3 % (0-7); HEMOGLOBIN 11.4 g/dL (12-16); IMMATURE GRANULOCYTES 0.5 % (0-5); LYMPHOCYTES 41.9 % (15-50); MCHC 35.6 g/dL (31.0-37.0); MCV 84.2 fL (80.0-100.0); MEAN PLATELET VOLUME 11.5 fL (7.4-10.4); MONOCYTES 6.6 % (2-11); NEUTROPHILS 48.2 % (40-80); PLATELET COUNT 162 10x3/uL (130-400); RDW 13.6 % (11.5-14.5)
[2019-03-18 03:46] LABS: WBC 6.7 10x3/uL (4.8-10.8)
[2019-03-18 04:03] LABS: ALBUMIN 1.9 g/dL (3.4-5.0); ALKALINE PHOSPHATASE 87 U/L (46-116); ALT (SGPT) 11 U/L (10-68); BILIRUBIN - TOTAL 0.18 mg/dL (0.2-1.3); CALCIUM 7.3 mg/dL (8.5-10.1); CARBON DIOXIDE 25.4 mmol/L (21.0-32.0); CHLORIDE - SERUM 111 mmol/L (98-107); CREATININE - SERUM 0.7 mg/dL (0.6-1.3); PROTEIN - SERUM 4.9 g/dL (6.4-8.2); SODIUM 143 mmol/L (136-145); UREA NITROGEN 7 mg/dL (7-18); eGFR NON AFRICAN AMERICAN > 90 mL/min (90-120)
[2019-03-18 04:12] LABS: CALC OSMOLALITY 281 mosm/kg (275-300); GLUCOSE 85 mg/dL (74-106); PHOSPHOROUS 2.4 mg/dL (2.5-4.9)
--- NOTE | 2019-03-18 09:15 | NUR ---
patient awake. eating breakfast. meds given per mar. no acute distress. pure wick in place. will continue to monitor patient
--- NOTE | 2019-03-18 09:39 | NUR ---
physical thearpy at bedside. ambulating patient to chair
--- NOTE | 2019-03-18 11:40 | NUR ---
NRTRITION F/U CHART REVIEWED. PT TOLERATING ADA DIET WITH GOOD INTAKE RECENT MEALS. RECENT BM RECORDED. WILL CONTINUE TO PROVIDE DIET, MONITOR PO INTAKE. RD FOLLOWING
--- NOTE | 2019-03-18 11:45 | NUR ---
PATIENT NOT COUGHING. STATES SHE HAS NOT BEEN ABLE TO COUGH FOR SPECIMEN
[2019-03-18 12:27] LABS: MAGNESIUM - SERUM 1.5 mg/dL (1.8-2.4); PHOSPHOROUS 2.7 mg/dL (2.5-4.9)
[2019-03-18 12:29] LABS: POTASSIUM - SERUM 4.6 mmol/L (3.5-5.1)
--- NOTE | 2019-03-18 15:30 | NUR ---
GAVE REPORT TO JOSHUA KELLER
--- NOTE | 2019-03-18 16:10 | NUR ---
PT ARRIVES TO ROOM VIA BED. PT IS AAO X 4. DRESSING TO LEFT HIP NOTED. EXCORIATION TO PERIAREA NOTED. PIV TO LEFT FA IS INFUSING WITHOUT DIFFICULTY. RESPIRATIONS ARE EVEN AND UNLABORED. PT DENIES PRESENCE OF PAIN/N/V AT THIS TIME. OVERLAY MATTRESS IS ON AND WORKING. PIV TO RIGHT HAND IS SL AND FLUSHES WITHOUT DIFFICULTY. PUREWICK PLACED. BED IS IN THE LOWEST POSITION. CALL LIGHT AND BEDSIDE TABLE ARE WITHIN REACH. SIDE RAILS X 2. PT DENIES FURTHER NEEDS. WILL CONT TO MONITOR.
[2019-03-19] VITALS: BP 123/80
[2019-03-19 04:48] VITALS: BP 100/67
--- NOTE | 2019-03-19 05:24 | NUR ---
LARGE EPISODES OF DIARRHEA X 3. CLEANED. DRESSING REAPPLIED TO THE LEFT HIP.
--- NOTE | 2019-03-19 05:25 | NUR ---
TUBING CHANGED PER PROTOCAL
[2019-03-19 06:20] LABS: BASOPHILS 0.7 % (0-2); HEMOGLOBIN 12.5 g/dL (12-16); IMMATURE GRANULOCYTES 0.4 % (0-5); MCH 29.7 pg (26.0-34.0); MCHC 33.8 g/dL (31.0-37.0); MCV 87.9 fL (80.0-100.0); MEAN PLATELET VOLUME 12.1 fL (7.4-10.4); MONOCYTES 6.1 % (2-11); NEUTROPHILS 45.8 % (40-80); PLATELET COUNT 178 10x3/uL (130-400); RBC 4.21 10x6/uL (4.00-5.40); RDW 14.2 % (11.5-14.5); WBC 7.4 10x3/uL (4.8-10.8)
[2019-03-19 06:53] LABS: ALBUMIN 2.3 g/dL (3.4-5.0); ALKALINE PHOSPHATASE 106 U/L (30-120); ALT (SGPT) 13 U/L (10-68); BILIRUBIN - TOTAL 0.16 mg/dL (0.2-1.3); C-REACTIVE PROTEIN 1.8 mg/dL (0.0-0.9); CALC OSMOLALITY 278 mosm/kg (275-300); CALCIUM 8.5 mg/dL (8.5-10.1); CARBON DIOXIDE 28.5 mmol/L (21.0-32.0); CHLORIDE - SERUM 103 mmol/L (98-107); CREATININE - SERUM 0.6 mg/dL (0.6-1.3); GLUCOSE 212 mg/dL (74-106); PHOSPHOROUS 2.3 mg/dL (2.5-4.9); POTASSIUM - SERUM 4.6 mmol/L (3.5-5.1); PROTEIN - SERUM 5.9 g/dL (6.4-8.2); SODIUM 137 mmol/L (136-145); UREA NITROGEN 10 mg/dL (7-18); eGFR NON AFRICAN AMERICAN > 90 mL/min (90-120)
--- NOTE | 2019-03-19 07:14 | NUR ---
PT IS RESTING IN BED WITH EYES OPEN. RESPIRATONS ARE EVEN AND UNLABORED. PT IS AAO X 4. LUE PARALYSIS NOTED. LLE WEAKNESS NOTED. SO AT BEDSIDE. OVERLAY MATTRESS IN PLACE. PUREWICK IN PLACE. LIGHT YELLOW URINE NOTED IN COLLECTION CHAMBER. PEDAL PULSES PALP. SORE TO LEFT HIP NOTED PT STATES "ITS FROM WEARING THOSE SMALL BRIEFS". PT DENIES PRESENCE OF N/V. BED IS IN THE LOWEST POSITION. CALL LIGHT AND BEDSIDE TABLE ARE WITHIN REAHC. SIDE RAILS X 2. PT DENIES FURTHER NEEDS. WILL CONT TO MONITOR.
[2019-03-19 09:50] VITALS: BP 113/75
[2019-03-19 13:37] VITALS: BP 90/57
[2019-03-19] MEDS ORDERED: SMZ-TMP DS TABL1 TAB PO (13:40)
[2019-03-19] MEDS ORDERED: CIPRO250 MG PO (14:26)
--- NOTE | 2019-03-19 14:59 | NUR ---
DISCHARGE INSTRUCTIONS COVERED WITH PT. PT DENIES ANY QUESTIONS/CONCERNS/NEEDS. ALL DISCHARGE PAPERS SIGNED BY PT. PIV TO RIGHT FA REMOVED WITH CATHETER TIP INTACT. DRESSING APPLIED. PIV REMOVED FROM LEFT FA WITH CATHETER TIP INTACT. DRESSING APPLIED. PT DENIES FURTHER NEEDS. PT TO NOTIFY NURSE WHEN READY FOR TRANSPORT OUT OF ROOM.
--- NOTE | 2019-03-19 16:30 | NUR ---
PT STATES THAT TRANSPORTATION IS AT FRONT OF HOSPITAL. PT TRANSPORTED FROM ROOM VIA WHEELCHAIR. PT DENIES FURTHER QUESTIONS/CONCERNS/NEEDS AT THIS TIME.
--- NOTE | 2019-03-19 17:11 | MORECARE ---
CASE MANAGEMENT DISCHARGE SUMMARY PATIENT: VANDANA BRADY UNIT: [id number] ADM DATE: 03/16/19 AGE: 43 : 73 SEX: F ROOM/BED: D.2212 AUTHOR: ARTIE,DOC PHYSICIAN: REFERRING PHYSICIAN: KAYA FAJARDO MD DATE OF SERVICE: 03/19/19 Discharge Plan Patient Name: VANDANA BRADY Facility: [facility]:[place] : 1975 Planned Disposition: Home Anticipated Discharge Date: Discharge Date: Expected LOS: Initial Reviewer: [email or web address] Initial Review Date: 03/16/2019 Generated: 03/19/19 6:10 pm Comments DCP- Discharge Planning Updated by [id number]: Helena Escobedo on 03/19/19 4:[address] CM met with patient to determine additional DC needs. 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 Patient voices understanding. Prescriptions will be called to [employer] [facility] [facility] per patient request. Friend is at bedside and will drive patient home. DCP- Discharge Planning Updated by [id number]: Misti Mccann on 03/16/19 3:[address] Patient Name: VANDANA BRADY Admission Status: ER Accout number: [id number] Admission Date: 03-16-2019 : 1975 Admission Diagnosis: Attending: TANA, Current LOS: 1 Anticipated DC Date: Planned Disposition: Primary Insurance: MEDICARE A & B Discharge Planning Comments: CM met with patient to complete initial dc planning assessment. CM educated patient on the CM role and verbal consent given by patient to complete assessment. Patient lives at home with her fianc? where she is independent with her care. At discharge patient plans to return home and feels this is a safe discharge. CM discussed availability of home health, rehab services, and medical equipment. Patient stated she would have family drive her home. Patient states she has glucometer but it has quit working. CM explained that she could get a glucometer and strips for 20.00 @ [employer]. CM asked if she is able to obtain her insulin and stated "yes" Patient denied known discharge needs at this time. CM will continue to follow and will assist as needed with dc plans/needs. Mission Commander: Misti Mccann DCPIA - Discharge Planning Initial Assessment Updated by [id number]: Misti Ramy on 03/16/19 5:02 pm * Is the patient Alert and Oriented? Yes * How many steps to enter\\exit or inside your home? * PCP [facility] * [facility] * Preadmission Environment Home with Family * ADLs Independent * Equipment Glucometer * List name and contact numbers for known caregivers / representatives who currently or will assist patient after discharge: [facility] [phone] * Verbal permission to speak to the caregivers and representatives has been obtained from the patient. Yes * Community resources currently utilized None * Additional services required to return to the preadmission environment? No * Can the patient safely return to the preadmission environment? Yes * Has this patient been hospitalized within the prior 30 days at any hospital? No Coverage Notice Reviewer: [id number] Sukumar Escobedo Notice Issued Date-Time: 03/19/2019 14:00 Notice Type: IM Discharge Notice Notice Delivered To: Patient Relationship to Patient: Self Pediatric Oncologist Name: Vandana Bardy Delivery Method: HAND - Hand Delivered Lashod[place] Days: Prior Verbal Notification: Recipient Understood Notice: Yes Recipient Signature: Yes Med Rec Note Co-signed by Attending: Coverage Notice Comment: DC IMM delivered to and signed by patient. Original given to patient and one placed on the chart. Last DP export: 03/16/19 4:08 p Patient Name: VANDANA BRADY Page 14157 at 1711 All edits/amendments must be made on the electronic document DICTATION DATE: 03/19/191709 POWER SUPPLY ENGINEER: KAYODE 03/19/191709 RPT#: [id number] DC DATE: STATUS: ADM IN [facility] [address] [place] [address] END OF REPORT
--- NOTE | 2019-03-21 08:54 | MORECARE ---
CASE MANAGEMENT DISCHARGE SUMMARY PATIENT: VANDANA BRADY UNIT: [id number] ADM DATE: 03/16/19 AGE: 43 : 73 SEX: F ROOM/BED: D.2212 AUTHOR: ARTIE,DOC PHYSICIAN: REFERRING PHYSICIAN: KAYA FAJARDO MD DATE OF SERVICE: 03/21/19 Discharge Plan Patient Name: VANDANA BRADY Facility: [facility]:[place] : 1975 Planned Disposition: Home Anticipated Discharge Date: Discharge Date: 03/19/2019 Expected LOS: Initial Reviewer: [email or web address] Initial Review Date: 03/16/2019 Generated: 03/21/19 9:53 am Comments DCP- Discharge Planning Updated by [email or web address]: Helena Escobedo on 03/19/19 4:[address] CM met with patient to determine additional DC needs. 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 Patient voices understanding. Prescriptions will be called to [facility] per patient request. Friend is at bedside and will drive patient home. DCP- Discharge Planning Updated by [id number]: Misti Mccann on 03/16/19 3:[address] Patient Name: VANDANA BRADY Admission Status: ER Accout number: [id number] Admission Date: 03-16-2019 : 1975 Admission Diagnosis: Attending: TANA, Current LOS: 1 Anticipated DC Date: Planned Disposition: Primary Insurance: MEDICARE A & B Discharge Planning Comments: CM met with patient to complete initial dc planning assessment. CM educated patient on the CM role and verbal consent given by patient to complete assessment. Patient lives at home with her fianc? where she is independent with her care. At discharge patient plans to return home and feels this is a safe discharge. CM discussed availability of home health, rehab services, and medical equipment. Patient stated she would have family drive her home. Patient states she has glucometer but it has quit working. CM explained that she could get a glucometer and strips for 20.00 @ [employer]. CM asked if she is able to obtain her insulin and stated "yes" Patient denied known discharge needs at this time. CM will continue to follow and will assist as needed with dc plans/needs. Pullman Car Repairer: Misti Mccann DCPIA - Discharge Planning Initial Assessment Updated by [id number]: Misti Ramy on 03/16/19 5:02 pm * Is the patient Alert and Oriented? Yes * How many steps to enter\\exit or inside your home? * PCP FLUSHING * [facility] * Preadmission Environment Home with Family * ADLs Independent * Equipment Glucometer * List name and contact numbers for known caregivers / representatives who currently or will assist patient after discharge: JORDAN KANG [phone] * Verbal permission to speak to the caregivers and representatives has been obtained from the patient. Yes * Community resources currently utilized None * Additional services required to return to the preadmission environment? No * Can the patient safely return to the preadmission environment? Yes * Has this patient been hospitalized within the prior 30 days at any hospital? No Coverage Notice Reviewer: [id number] Sukumar Escobedo Notice Issued Date-Time: 03/19/2019 14:00 Notice Type: IM Discharge Notice Notice Delivered To: Patient Relationship to Patient: Self Gas Technician Name: Vandana Brady Delivery Method: HAND - Hand Delivered Lashonda Days: Prior Verbal Notification: Recipient Understood Notice: Yes Recipient Signature: Yes Med Rec Note Co-signed by Attending: Coverage Notice Comment: DC IMM delivered to and signed by patient. Original given to patient and one placed on the chart. Last DP export: 03/19/19 4:11 p Patient Name: VANDANA BRADY Page [id number] at 0854 All edits/amendments must be made on the electronic document DICTATION DATE: 03/21/19852 RIVETER PNEUMATIC: KAYODE 03/21/19852 RPT#: [id number] DC DATE:03/19/19 STATUS: DIS IN [facility] [address] [place] [address] END OF REPORT
== END 2019-03-19 17:42 | disposition home or self-care (01) | DRG 638 ==
LOC: D.ER 21:10 → D.ICU 03-16 00:35 → D.MS 03-18 15:31
PROVIDERS: Family Medicine; ADMIT Family Medicine; ATTEND Family Medicine
DX: E11.10 Type 2 diabetes mellitus with ketoacidosis without coma (principal); N17.9 Acute kidney failure, unspecified; E87.1 Hypo-osmolality and hyponatremia; F17.203 Nicotine dependence unspecified, with withdrawal; N39.0 Urinary tract infection, site not specified; Z79.4 Long term (current) use of insulin; F41.8 Other specified anxiety disorders; G89.29 Other chronic pain; E11.40 Type 2 diabetes mellitus with diabetic neuropathy, unspecified; E87.6 Hypokalemia; G47.00 Insomnia, unspecified; D72.829 Elevated white blood cell count, unspecified; I69.398 Other sequelae of cerebral infarction; R00.0 Tachycardia, unspecified

== ENCOUNTER 2019-04-12 15:51 | Inpatient (IN) | payer MEDICARE ==
[~2019-04-12] VITALS: Ht 157.5 cm; Wt 78.9 kg
[~2019-04-12 15:51] MED LIST changes: +CIPRO250 MG PO; +SMZ-TMP DS TABL1 TAB PO
--- NOTE | 2019-04-12 16:00 | NUR ---
URINE COLLECTED AND SENT TO LAB VIA TUBE SYSTEM
[2019-04-12 16:23] LABS: BASOPHILS 0.9 % (0-2); EOSINOPHILS 2.8 % (0-7); HEMATOCRIT 41.5 % (36.0-48.0); HEMOGLOBIN 14.4 g/dL (12-16); IMMATURE GRANULOCYTES 0.5 % (0-5); LYMPHOCYTES 25.9 % (15-50); MCH 31.1 pg (26.0-34.0); MCHC 34.7 g/dL (31.0-37.0); MCV 89.6 fL (80.0-100.0); MEAN PLATELET VOLUME 10.7 fL (7.4-10.4); MONOCYTES 9.8 % (2-11); NEUTROPHILS 60.1 % (40-80); RBC 4.63 10x6/uL (4.00-5.40); RDW 12.9 % (11.5-14.5); WBC 6.4 10x3/uL (4.8-10.8)
[2019-04-12 16:25] LABS: BILIRUBIN NEGATIVE (NEGATIVE); GLUCOSE 1000 mg/dL (NEGATIVE); KETONE MODERATE mg/dL (NEGATIVE); NITRITE NEGATIVE (NEGATIVE); UROBILINOGEN NORMAL (NORMAL)
[2019-04-12 16:26] LABS: BACTERIA MODERATE /hpf (NEGATIVE); EPITHELIAL CELLS 0-5 /hpf (0-5); WHITE CELLS - URINE >50 /hpf (NEGATIVE); YEAST >1+ WITH HYPHAE /hpf (NONE SEEN)
[2019-04-12 16:34] LABS: PLATELET COUNT 303 10x3/uL (130-400)
[2019-04-12 17:19] LABS: CALC OSMOLALITY 271 mosm/kg (275-300); CALCIUM 8.6 mg/dL (8.5-10.1); CARBON DIOXIDE 25.2 mmol/L (21.0-32.0); CHLORIDE - SERUM 99 mmol/L (98-107); CREATININE - SERUM 0.7 mg/dL (0.6-1.3); GLUCOSE 248 mg/dL (74-106); POTASSIUM - SERUM 3.3 mmol/L (3.5-5.1); SODIUM 133 mmol/L (136-145); UREA NITROGEN 8 mg/dL (7-18); eGFR NON AFRICAN AMERICAN > 90 mL/min (90-120)
[2019-04-12 17:25] LABS: ALBUMIN 2.9 g/dL (3.4-5.0); ALKALINE PHOSPHATASE 103 U/L (30-120); ALT (SGPT) 10 U/L (10-68); BILIRUBIN - TOTAL 0.42 mg/dL (0.2-1.3); PROTEIN - SERUM 7.1 g/dL (6.4-8.2)
[2019-04-12] MEDS ORDERED: VIBRAMYCIN 100100 MG PO (17:28)
[2019-04-12] MEDS ORDERED: LEVAQUIN750 MG PO (17:28)
[2019-04-12] MEDS ORDERED: TYLENOL W/CODEI1 TAB PO (17:28)
[2019-04-12 18:00] VITALS: BP 108/61
--- NOTE | 2019-04-12 18:31 | NUR ---
ADA DIET SERVED
[2019-04-12 19:00] VITALS: BP 111/71
--- NOTE | 2019-04-12 19:57 | NUR ---
PT LYING SUPINE IN BED. PT ON PHONE WITH FRIEND. PT STATES SHE HAS NOT BEEN ABLE TO REACH ANYONE THAT SHE CAN BE DISCHARGED WITH. CHARGE NURSE NOTIFIED.
[2019-04-12 20:00] VITALS: BP 110/68
[2019-04-12 21:00] VITALS: BP 110/74
--- NOTE | 2019-04-12 21:04 | NUR ---
PT LYING IN THE RIGHT LATERAL POSTION. PT DENIES FURTHER COMPLAINTS AT THIS TIME. NO ACUTE DISTRESS NOTED. WILL CONTINUE TO MONITOR.
[2019-04-12 22:00] VITALS: BP 106/72
--- NOTE | 2019-04-12 22:00 | NUR ---
MULTIPLE FAMILY MEMBERS HAVE CALLED CONCERNED ABOUT PT UP FOR DISCHARGE. STATES THAT HER CAREGIVER, DIANA IS IN THE HOSPITAL. FAMILY STATES THEY AREN'T ABLE TO COME GET HER, MUCH LESS TAKE CARE OF HER. PT IS DISABLED FROM OLD STROKE. INCONTINENT IN DIAPER. PT HAS UNHEALED BEDSORE. WILL SPEAK TO ATTENDING ABOUT RECONSIDERING ADMISSION.
[2019-04-12 23:00] VITALS: BP 100/64
--- NOTE | 2019-04-12 23:17 | NUR ---
PT BREIF CHANGED AT THIS TIME. NO FUTHER NEEDS EXPRESSED. WILL CONTINUE TO MONITOR.
[2019-04-13] VITALS: BP 102/68
--- NOTE | 2019-04-13 00:31 | NUR ---
PATIENT TO ROOM 2105 VIA STRETCHER. PATIENT IS AAOX4, BEDFAST. VSS. PIV TO RT WRIST, PATENT, INFUSING LEVAQUIN AND NS, DRSG C/D/I. PATIENT HAS SMALL WOUND/ REDDENED AREA THATS BLANCHABLE. PATIENT IS INCONTINENT OF BOWEL AND BLADDER. PULL UP IS DRY. PATIENT REQUESTS A SANDWICH AND DRINK. WILL PROVIDE. CL IN REACH, BED LOCKED AND LOWERED. WILL CTM.
--- NOTE | 2019-04-13 03:06 | NUR ---
PATIENT C/O OF ITCHING AND FEELING LIKE "FLEAS" ARE CRAWLING ON HER. OFFERED PATIENT A BATH, SHE SAID SHE HASN'T HAD ONE IN AWHILE AND THAT MAY MAKE HER FEEL BETTER. ON SITE COORDINATOR ADMINISTERED BED BATH. PULL UP CHANGED, DISCOVERED PATIENT IS MENSTRUATING. LINENS AND GOWN CHANGED.
[2019-04-13 04:00] VITALS: BP 102/60
[2019-04-13 05:06] VITALS: BMI 31.9
[2019-04-13 09:24] VITALS: BP 93/64
[2019-04-13 09:31] VITALS: BP 93/61
--- NOTE | 2019-04-13 13:12 | NUR ---
LEFT HIP HAS A 2CM X 3CM OPEN WOUND. PT STATES IT WAS CAUSED BY A BRIEF THAT WAS TOO TIGHT. SHE STATES IT HAS BEEN THERE FOR SEVERAL MONTHS. THE WOUND BED IS PINK AND THERE IS A SMALL SEROUS DRAINAGE WITH NO ODOR NOTED. CLEANSED AND COVERED WITH MEPILEX LITE DRESSING. WOUND CARE WILL MONITOR.
[2019-04-13 13:52] VITALS: Ht 157.5 cm; Wt 78.9 kg
--- NOTE | 2019-04-13 16:16 | NUR ---
RESTS IN BED WITH EYES CLOSED. IV PATENT. CALL LIGHT IN REACH. WILL MONITOR.
--- NOTE | 2019-04-13 17:25 | MORECARE ---
CASE MANAGEMENT DISCHARGE SUMMARY PATIENT: CHRISTINE NGUYEN UNIT: [id number] ADM DATE: 04/12/19 AGE: 43 : 73 SEX: F ROOM/BED: D.2105 AUTHOR: ARTIE,DOC PHYSICIAN: REFERRING PHYSICIAN: MICHAEL BUCKLEY DO DATE OF SERVICE: 04/13/19 Discharge Plan Patient Name: CHRISTINE NGUYEN Facility: [facility]:[place] : 1975 Planned Disposition: Mcfp Facility Anticipated Discharge Date: Discharge Date: Expected LOS: Initial Reviewer: [email or web address] Initial Review Date: 04/13/2019 Generated: 04/13/19 6:25 pm DCPIA - Discharge Planning Initial Assessment Updated by [email or web address]: Brock Chavez on 04/13/19 5:22 pm * Is the patient Alert and Oriented? Yes * How many steps to enter\exit or inside your home? NONE * PCP DR. NUR * Pharmacy [facility] * Preadmission Environment Home with Family * ADLs Independent * Equipment Shower Chair Wheelchair * Other Equipment NO MEDICAL EQUIPMENT PROVIDER PREFERENCE * List name and contact numbers for known caregivers / representatives who currently or will assist patient after discharge: BONILLA LEONARD'S SISTER, * Verbal permission to speak to the caregivers and representatives has been obtained from the patient. N/A * Community resources currently utilized None * Please name any agencies selected above. NONE * Additional services required to return to the preadmission environment? Yes * Can the patient safely return to the preadmission environment? Yes * Has this patient been hospitalized within the prior 30 days at any hospital? Yes External Providers External Provider: [facility] Next Contact Date: 04/13/2019 Service Request Date: Service Type: Resolution: Reviewer: Comments: Coverage Notice Reviewer: [id number] Sukumar Juares Notice Issued Date-Time: 04/13/2019 7:55 Notice Type: Medicare Outpatient Observation Notice Notice Delivered To: Patient Relationship to Patient: Direct Support Staff Member Name: Delivery Method: HAND - Hand Delivered Lashonda Days: Prior Verbal Notification: Recipient Understood Notice: Yes Recipient Signature: Yes Med Rec Note Co-signed by Attending: Coverage Notice Comment: PALMER SERVED, EXPLAINED, SIGNED BY PATIENT AND ORIGINAL PROVIDED AND COPY PLACED ON CHART. Reviewer: [id number] - Brock Chavez Notice Issued Date-Time: 04/13/2019 16:20 Notice Type: Patient Choice Letter Notice Delivered To: Patient Relationship to Patient: Direct Support Staff Member Name: Delivery Method: HAND - Hand Delivered Lashonda Days: Prior Verbal Notification: Recipient Understood Notice: Yes Recipient Signature: Yes Med Rec Note Co-signed by Attending: Coverage Notice Comment: [facility] Patient Name: CHRISTINE NGUYEN Page [id number] at 1725 All edits/amendments must be made on the electronic document DICTATION DATE: 04/13/19 172 JIVE DEVELOPER: KAYODE 04/13/19 172 RPT#: [id number] DC DATE: STATUS: ADM IN [address] [place] [address] END OF REPORT
--- NOTE | 2019-04-13 17:32 | MORECARE ---
CASE MANAGEMENT DISCHARGE SUMMARY PATIENT: CHRISTINE NGUYEN UNIT: [id number] ADM DATE: 04/12/19 AGE: 43 : 73 SEX: F ROOM/BED: D.4380 AUTHOR: ARTIE,DOC PHYSICIAN: REFERRING PHYSICIAN: MICHAEL BUCKLEY DO DATE OF SERVICE: 04/13/19 Discharge Plan Patient Name: CHRISTINE NGUYEN Facility: [facility]:[place] : 1975 Planned Disposition: Shelter Facility Anticipated Discharge Date: Discharge Date: Expected LOS: Initial Reviewer: [email or web address] Initial Review Date: 04/13/2019 Generated: 04/13/19 6:32 pm Comments DCP- Discharge Planning Updated by [id number]: Brock Chavez on 04/13/19 4:[address] Patient Name: CHRISTINE NGUYEN Admission Status: ER Accout number: [id number] Admission Date: 04-12-2019 : 1975 Admission Diagnosis: Attending: MICHAEL BUCKLEY Current LOS: 1 Anticipated DC Date: Planned Disposition: Shelter Facility Primary Insurance: MEDICARE A & B PLANNED EXTERNAL PROVIDER: [facility] Discharge Planning Comments: CM RECEIVED ORDER FOR "PT HAS NO WHERE TO GO." CM SPOKE TO DERIK BELLA OF [facility], WHO REPORTS HAVING OPEN INVESTIGATION BUT NO APS HOLD ON PATIENT AT THIS TIME. DERIK REPORTS PT HAS PLACEMENT AT [facility] IN [place] AND PROVIDED CONTACT INFORMATION FOR [facility], TELEPHONE [phone]. CM CALLED KASHMIR AND LEFT MESSAGE ASKING FOR RETURN CALL. PT IN ROOM TO DISCUSS DISCHARGE PLANNING AND NEEDS. PT REPORTS SHE WAS LIVING AT FRIENDS HOMES WITH HER FIANCE AND NOW HAVE NO PLACE TO LIVE. PT REPORTS NEEDING ASSISTANCE WITH AMBULATION OVER DISTANCES AND HAS A WHEELCHAIR AT A FRIENDS HOUSE AND HER FAMILY HAS HER SHOWER CHAIR. PT HAS NO OTHER MEDICAL EQUIPENT AND NO EQUIPMENT PROVIDER PREFERENCE. PT HAS NO OUTSIDE SERVICES ASSISTING IN THE HOME. PT DOES NOT KNOW HOW [facility]ULT [facility] WAS CALLED BUT SUSPECTS IT WAS A FRIEND OR FAMILY MEMBER TO CALL AND PT REPORTS "THEY HAVE BEEN CALLED LOTS OF TIMES." CM DISCUSSED AVAILABILITY OF HOME HEALTH, REHAB SERVICES AND MEDICAL EQUIPMENT. PT HAS TALKED TO DERIK OF APS AND IS AGREEABLE TO PLACEMENT AT [facility] IN [place]. CHOICE SIGNED. CM FAXED REFERRAL FOR PLACEMENT TO [facility] D[facility] AT [phone]. CM WILL FOLLOW UP WITH CALL SIDDHARTH [facility] D[facility] TOMORROW AND CM ANTICIPATES COMPLETING DONA SCREENING SOON POSSIBLE IF IT IS REQUIRED FOR PLACEMENT. Die Tester: Brock Chavez DCPIA - Discharge Planning Initial Assessment Updated by [email or web address]: Brock Chavez on 04/13/19 5:22 pm * Is the patient Alert and Oriented? Yes * How many steps to enter\\exit or inside your home? NONE * PCP DR. NUR * [facility] * Preadmission Environment Home with Family * ADLs Independent * Equipment Shower Chair Wheelchair * Other Equipment NO MEDICAL EQUIPMENT PROVIDER PREFERENCE * List name and contact numbers for known caregivers / representatives who currently or will assist patient after discharge: BONILLA LEONARD'S SISTER, * Verbal permission to speak to the caregivers and representatives has been obtained from the patient. N/A * Community resources currently utilized None * Please name any agencies selected above. NONE * Additional services required to return to the preadmission environment? Yes * Can the patient safely return to the preadmission environment? Yes * Has this patient been hospitalized within the prior 30 days at any hospital? Yes Coverage Notice Reviewer: [id number] Sukumar Juares Notice Issued Date-Time: 04/13/2019 7:55 Notice Type: Medicare Outpatient Observation Notice Notice Delivered To: Patient Relationship to Patient: Machine Rebuilder Name: Delivery Method: HAND - Hand Delivered Lashonda Days: Prior Verbal Notification: Recipient Understood Notice: Yes Recipient Signature: Yes Med Rec Note Co-signed by Attending: Coverage Notice Comment: PALMER SERVED, EXPLAINED, SIGNED BY PATIENT AND ORIGINAL PROVIDED AND COPY PLACED ON CHART. Reviewer: [id number] - Brock Chavez Notice Issued Date-Time: 04/13/2019 16:20 Notice Type: Patient Choice Letter Notice Delivered To: Patient Relationship to Patient: Machine Rebuilder Name: Delivery Method: HAND - Hand Delivered Lashonda Days: Prior Verbal Notification: Recipient Understood Notice: Yes Recipient Signature: Yes Med Rec Note Co-signed by Attending: Coverage Notice Comment: [facility] Last DP export: 04/13/19 4:25 p Patient Name: CHRISTINE NGUYEN Page [phone] at 1732 All edits/amendments must be made on the electronic document DICTATION DATE: 04/13/191731 FREIGHT ROUTER: KAYODE 04/13/191731 RPT#: [id number] DC DATE: STATUS: ADM IN [facility] [address] [place] [address] END OF REPORT
--- NOTE | 2019-04-13 19:38 | NUR ---
EVENING ROUNDS COMPLETE. PT SITTING UP IN BED. NO SIGNS OF DISTRESS. PT DENIES ANY NEEDS AT THIS TIME. CL IN REACH, BED IN LOWEST POSITION.
[2019-04-13 20:00] VITALS: BP 107/75
[2019-04-14] VITALS (7 sets, daily range): BP systolic 91–99; BP diastolic 54–70
[2019-04-14 05:38] LABS: BASOPHILS 0.7 % (0-2); EOSINOPHILS 3.2 % (0-7); HEMATOCRIT 39.4 % (36.0-48.0); HEMOGLOBIN 13.4 g/dL (12-16); IMMATURE GRANULOCYTES 0.1 % (0-5); LYMPHOCYTES 39.5 % (15-50); MCH 30.5 pg (26.0-34.0); MCV 89.5 fL (80.0-100.0); MEAN PLATELET VOLUME 11.1 fL (7.4-10.4); NEUTROPHILS 49.5 % (40-80); PLATELET COUNT 266 10x3/uL (130-400); RDW 12.8 % (11.5-14.5)
[2019-04-14 06:03] LABS: CALC OSMOLALITY 283 mosm/kg (275-300); CALCIUM 8.8 mg/dL (8.5-10.1); CARBON DIOXIDE 24.3 mmol/L (21.0-32.0); CHLORIDE - SERUM 103 mmol/L (98-107); CREATININE - SERUM 0.7 mg/dL (0.6-1.3); GLUCOSE 261 mg/dL (74-106); MAGNESIUM - SERUM 1.6 mg/dL (1.8-2.4); POTASSIUM - SERUM 3.7 mmol/L (3.5-5.1); SODIUM 137 mmol/L (136-145); eGFR NON AFRICAN AMERICAN > 90 mL/min (90-120)
[2019-04-14 06:11] LABS: UREA NITROGEN 15 mg/dL (7-18)
--- NOTE | 2019-04-14 12:14 | MORECARE ---
CASE MANAGEMENT DISCHARGE SUMMARY PATIENT: CHRISTINE NGUYEN UNIT: [id number] ADM DATE: 04/13/19 AGE: 43 : 73 SEX: F ROOM/BED: D.0294 AUTHOR: ARTIE,DOC PHYSICIAN: REFERRING PHYSICIAN: MICHAEL BUCKLEY DO DATE OF SERVICE: 04/14/19 Discharge Plan Patient Name: CHRISTINE NGUYEN Facility: [facility]:[place] : 1975 Planned Disposition: Half-Way Facility Anticipated Discharge Date: Discharge Date: Expected LOS: Initial Reviewer: [id number] Initial Review Date: 04/13/2019 Generated: 04/14/19 1:14 pm Comments DCP- Discharge Planning Updated by [id number]: Brock Chavez on 04/13/19 4:[address] Patient Name: CHRISTINE NGUYEN Admission Status: ER Accout number: [id number] Admission Date: 04-12-2019 : 1975 Admission Diagnosis: Attending: MICHAEL BUCKLEY Current LOS: 1 Anticipated DC Date: Planned Disposition: Half-Way Facility Primary Insurance: MEDICARE A & B PLANNED EXTERNAL PROVIDER: [facility] Discharge Planning Comments: CM RECEIVED ORDER FOR "PT HAS NO WHERE TO GO." CM SPOKE TO DERIK BELLA OF ADULT PROTECTIVE SERVICES, WHO REPORTS HAVING OPEN INVESTIGATION BUT NO APS HOLD ON PATIENT AT THIS TIME. DERIK REPORTS PT HAS PLACEMENT AT [facility] IN [place] AND PROVIDED CONTACT INFORMATION FOR KASHMIR DUMONT, TELEPHONE [phone]. CM CALLED KASHMIR AND LEFT MESSAGE ASKING FOR RETURN CALL. PT IN ROOM TO DISCUSS DISCHARGE PLANNING AND NEEDS. PT REPORTS SHE WAS LIVING AT FRIENDS HOMES WITH HER FIANCE AND NOW HAVE NO PLACE TO LIVE. PT REPORTS NEEDING ASSISTANCE WITH AMBULATION OVER DISTANCES AND HAS A WHEELCHAIR AT A FRIENDS HOUSE AND HER FAMILY HAS HER SHOWER CHAIR. PT HAS NO OTHER MEDICAL EQUIPENT AND NO EQUIPMENT PROVIDER PREFERENCE. PT HAS NO OUTSIDE SERVICES ASSISTING IN THE HOME. PT DOES NOT KNOW HOW ADULT PROTECTIVE SERVICES WAS CALLED BUT SUSPECTS IT WAS A FRIEND OR FAMILY MEMBER TO CALL AND PT REPORTS "THEY HAVE BEEN CALLED LOTS OF TIMES." CM DISCUSSED AVAILABILITY OF HOME HEALTH, REHAB SERVICES AND MEDICAL EQUIPMENT. PT HAS TALKED TO DERIK KAN APS AND IS AGREEABLE TO PLACEMENT AT [facility] IN [place]. CHOICE SIGNED. CM FAXED REFERRAL FOR PLACEMENT TO KASHMIR DUMONT AT [phone]. CM WILL FOLLOW UP WITH CALL SIDDHARTH KASHMIR DUMONT TOMORROW AND CM ANTICIPATES COMPLETING DONA SCREENING SOON POSSIBLE IF IT IS REQUIRED FOR PLACEMENT. Java Developer Analyst: Brock Chavez DCPIA - Discharge Planning Initial Assessment Updated by [id number]: Brock Chavez on 04/13/19 5:22 pm * Is the patient Alert and Oriented? Yes * How many steps to enter\\exit or inside your home? NONE * PCP DR. NUR * Pharmacy [facility] * Preadmission Environment Home with Family * ADLs Independent * Equipment Shower Chair Wheelchair * Other Equipment NO MEDICAL EQUIPMENT PROVIDER PREFERENCE * List name and contact numbers for known caregivers / representatives who currently or will assist patient after discharge: BONILLA LEONARD'S SISTER, * Verbal permission to speak to the caregivers and representatives has been obtained from the patient. N/A * Community resources currently utilized None * Please name any agencies selected above. NONE * Additional services required to return to the preadmission environment? Yes * Can the patient safely return to the preadmission environment? Yes * Has this patient been hospitalized within the prior 30 days at any hospital? Yes External Providers External Provider: DEREJE Khan Next Contact Date: 04/14/2019 Service Request Date: Service Type: Resolution: Reviewer: Comments: Coverage Notice Reviewer: [id number] - Erum Juares Notice Issued Date-Time: 04/13/2019 7:55 Notice Type: Medicare Outpatient Observation Notice Notice Delivered To: Patient Relationship to Patient: Boat Loader Name: Delivery Method: HAND - Hand Delivered Lashonda Days: Prior Verbal Notification: Recipient Understood Notice: Yes Recipient Signature: Yes Med Rec Note Co-signed by Attending: Coverage Notice Comment: PALMER SERVED, EXPLAINED, SIGNED BY PATIENT AND ORIGINAL PROVIDED AND COPY PLACED ON CHART. Reviewer: [id number] - Brock Chavez Notice Issued Date-Time: 04/13/2019 16:20 Notice Type: Patient Choice Letter Notice Delivered To: Patient Relationship to Patient: Boat Loader Name: Delivery Method: HAND - Hand Delivered Lashonda Days: Prior Verbal Notification: Recipient Understood Notice: Yes Recipient Signature: Yes Med Rec Note Co-signed by Attending: Coverage Notice Comment: [facility] Last DP export: 04/13/19 4:32 p Patient Name: CHRISTINE NGUYEN Page [id number] at 1214 All edits/amendments must be made on the electronic document DICTATION DATE: 04/14/19 121 SYSTEMS PLANNER: KAYODE 04/14/19 1214 RPT#: [id number] DC DATE: STATUS: ADM IN [facility] [address] [place] [address] END OF REPORT
--- NOTE | 2019-04-14 12:29 | MORECARE ---
CASE MANAGEMENT DISCHARGE SUMMARY PATIENT: CHRISTINE NGUYEN UNIT: [id number] ADM DATE: 04/13/19 AGE: 43 : 73 SEX: F ROOM/BED: D.0266 AUTHOR: ARTIE,DOC PHYSICIAN: REFERRING PHYSICIAN: MICHAEL BUCKLEY DO DATE OF SERVICE: 04/14/19 Discharge Plan Patient Name: CHRISTINE NGUYEN Facility: [facility]:[place] : 1975 Planned Disposition: Halfway Facility Anticipated Discharge Date: Discharge Date: Expected LOS: Initial Reviewer: [id number] Initial Review Date: 04/13/2019 Generated: 04/14/19 1:29 pm Comments DCP- Discharge Planning Updated by [id number]: Brock Chavez on 04/14/19 11:[address] Patient Name: CHRISTINE NGUYEN Encounter No: [id number] : 1975 Primary Insurance: MEDICARE A & B Anticipated DC Date: Planned Disposition: Halfway Facility External Planned Provider: [facility] Discharge Planning Comments: CM COMPLETED DONA SCREENING FORM, OBTAINED PT AND DOCTORS SIGNATURES. CM FAXED TO [employer] AT [phone] TO REQUEST ASSESSMENT DUE TO DIAGNOSIS OF BIPOLAR. CM WAITING DONA SCREENING COMPLETION WELL ADMISSION DETERMINATION FROM [facility] IN [place] FOR PLACEMENT. Co Founder & Ceo: Brock Chavez DCP- Discharge Planning Updated by [id number]: Brock Chavez on 04/13/19 4:[address] Patient Name: CHRISTINE NGUYEN Admission Status: ER Accout number: [id number] Admission Date: 04-12-2019 : 1975 Admission Diagnosis: Attending: MICHAEL BUCKLEY Current LOS: 1 Anticipated DC Date: Planned Disposition: Halfway Facility Primary Insurance: MEDICARE A & B PLANNED EXTERNAL PROVIDER: [facility] Discharge Planning Comments: CM RECEIVED ORDER FOR "PT HAS NO WHERE TO GO." CM SPOKE TO DERIK BELLA OF ADULT PROTECTIVE SERVICES, WHO REPORTS HAVING OPEN INVESTIGATION BUT NO APS HOLD ON PATIENT AT THIS TIME. DERIK REPORTS PT HAS PLACEMENT AT [facility] IN [place] AND PROVIDED CONTACT INFORMATION FOR KASHMIR DUMONT, TELEPHONE [phone]. CM CALLED KASHMIR AND LEFT MESSAGE ASKING FOR RETURN CALL. PT IN ROOM TO DISCUSS DISCHARGE PLANNING AND NEEDS. PT REPORTS SHE WAS LIVING AT FRIENDS HOMES WITH HER FIANCE AND NOW HAVE NO PLACE TO LIVE. PT REPORTS NEEDING ASSISTANCE WITH AMBULATION OVER DISTANCES AND HAS A WHEELCHAIR AT A FRIENDS HOUSE AND HER FAMILY HAS HER SHOWER CHAIR. PT HAS NO OTHER MEDICAL EQUIPENT AND NO EQUIPMENT PROVIDER PREFERENCE. PT HAS NO OUTSIDE SERVICES ASSISTING IN THE HOME. PT DOES NOT KNOW HOW ADULT PROTECTIVE SERVICES WAS CALLED BUT SUSPECTS IT WAS A FRIEND OR FAMILY MEMBER TO CALL AND PT REPORTS "THEY HAVE BEEN CALLED LOTS OF TIMES." CM DISCUSSED AVAILABILITY OF HOME HEALTH, REHAB SERVICES AND MEDICAL EQUIPMENT. PT HAS TALKED TO DERIK KAN [facility] AND IS AGREEABLE TO PLACEMENT AT [facility] IN [place]. CHOICE SIGNED. CM FAXED REFERRAL FOR PLACEMENT TO [facility] AT [phone]. CM WILL FOLLOW UP WITH CALL SIDDHARTH KASHMIR TIM TOMORROW AND CM ANTICIPATES COMPLETING DONA SCREENING SOON POSSIBLE IF IT IS REQUIRED FOR PLACEMENT. Co Founder & Ceo: Brock Chavez DCPIA - Discharge Planning Initial Assessment Updated by [id number]: Brock Chavez on 04/13/19 5:22 pm * Is the patient Alert and Oriented? Yes * How many steps to enter\\exit or inside your home? NONE * PCP DR. NUR * Pharmacy [facility] * Preadmission Environment Home with Family * ADLs Independent * Equipment Shower Chair Wheelchair * Other Equipment NO MEDICAL EQUIPMENT PROVIDER PREFERENCE * List name and contact numbers for known caregivers / representatives who currently or will assist patient after discharge: BONILLA LEONARD'S SISTER, * Verbal permission to speak to the caregivers and representatives has been obtained from the patient. N/A * Community resources currently utilized None * Please name any agencies selected above. NONE * Additional services required to return to the preadmission environment? Yes * Can the patient safely return to the preadmission environment? Yes * Has this patient been hospitalized within the prior 30 days at any hospital? Yes Coverage Notice Reviewer: [id number] - Erum Juares Notice Issued Date-Time: 04/13/2019 7:55 Notice Type: Medicare Outpatient Observation Notice Notice Delivered To: Patient Relationship to Patient: High Pressure Boiler Operator Name: Delivery Method: HAND - Hand Delivered Lashonda Days: Prior Verbal Notification: Recipient Understood Notice: Yes Recipient Signature: Yes Med Rec Note Co-signed by Attending: Coverage Notice Comment: SPENCER SERVED, EXPLAINED, SIGNED BY PATIENT AND ORIGINAL PROVIDED AND COPY PLACED ON CHART. Reviewer: [id number] Sukumar Chavez Notice Issued Date-Time: 04/13/2019 16:20 Notice Type: Patient Choice Letter Notice Delivered To: Patient Relationship to Patient: High Pressure Boiler Operator Name: Delivery Method: HAND - Hand Delivered Lashonda Days: Prior Verbal Notification: Recipient Understood Notice: Yes Recipient Signature: Yes Med Rec Note Co-signed by Attending: Coverage Notice Comment: [facility] Last DP export: 04/14/19 11:14 a Patient Name: CHRISTINE NGUYEN Page 56912 at 1229 All edits/amendments must be made on the electronic document DICTATION DATE: 04/14/191228 MAPLE SYRUP MAKER: KAYODE 04/14/19 1229 RPT#: [id number] DC DATE: STATUS: ADM IN [facility] [address] [place] [address] END OF REPORT
--- NOTE | 2019-04-14 18:03 | MORECARE ---
CASE MANAGEMENT DISCHARGE SUMMARY PATIENT: CHRISTINE NGUYEN UNIT: [id number] ADM DATE: 04/13/19 AGE: 43 : [birth year] SEX: F ROOM/BED: D.0737 AUTHOR: ARTIE,DOC PHYSICIAN: REFERRING PHYSICIAN: MICHAEL BUCKLEY DO DATE OF SERVICE: 04/14/19 Discharge Plan Patient Name: CHRISTINE NGUYEN Facility: [facility]:[place] : 1975 Planned Disposition: Retirement Facility Anticipated Discharge Date: Discharge Date: Expected LOS: Initial Reviewer: [id number] Initial Review Date: 04/13/2019 Generated: 04/14/19 7:02 pm Comments DCP- Discharge Planning Updated by [id number]: Brock Chavez on 04/14/19 5:[address] Patient Name: CHRISTINE NGUYEN Encounter No: [id number] : 1975 Primary Insurance: MEDICARE A & B Anticipated DC Date: Planned Disposition: Retirement Facility External Planned Provider: [facility] Discharge Planning Comments: CM RECEIVED NOTICE THAT PT WILL REQUIRE LEVEL 2 DONA SCREENING. PT CANNOT ADMIT TO ANY SKILLED NURSING IN THE [facility] UNTIL THIS IS DONE. IT MAY TAKE UP TO 9 BUSINESS DAYS TO COMPLETE. CM WAITING LEVEL 2 DONA SCREENING COMPLETION WELL ADMISSION DETERMINATION FROM [facility] IN [place] FOR PLACEMENT. Pearl Stringer: Brock Chavez DCP- Discharge Planning Updated by [id number]: Brock Chavez on 04/14/19 11:[address] Patient Name: CHRISTINE NGUYEN Encounter No: [id number] : 1975 Primary Insurance: MEDICARE A & B Anticipated DC Date: Planned Disposition: Retirement [facility] External Planned Provider: [facility] Discharge Planning Comments: CM COMPLETED DONA SCREENING FORM, OBTAINED PT AND DOCTORS SIGNATURES. CM FAXED TO [employer] AT [phone] TO REQUEST ASSESSMENT DUE TO DIAGNOSIS OF BIPOLAR. CM WAITING DONA SCREENING COMPLETION WELL ADMISSION DETERMINATION FROM [facility] IN [place] FOR PLACEMENT. Pearl Stringer: Brock Chavez DCP- Discharge Planning Updated by [id number]: Brock Chavez on 04/13/19 4:[address] Patient Name: CHRISTINE NGUYEN Admission Status: ER Accout number: [id number] Admission Date: 04-12-2019 : 1975 Admission Diagnosis: Attending: MICHAEL BUCKLEY Current LOS: 1 Anticipated DC Date: Planned Disposition: Retirement Facility Primary Insurance: MEDICARE A & B PLANNED EXTERNAL PROVIDER: [facility] [place] Discharge Planning Comments: CM RECEIVED ORDER FOR "PT HAS NO WHERE TO GO." CM SPOKE TO DERIK BELLA OF ADULT PROTECTIVE SERVICES, WHO REPORTS HAVING OPEN INVESTIGATION BUT NO APS HOLD ON PATIENT AT THIS TIME. DERIK REPORTS PT HAS PLACEMENT AT [facility] IN [place] AND PROVIDED CONTACT INFORMATION FOR KASHMIR DUMONT, TELEPHONE [phone]. CM CALLED KASHMIR AND LEFT MESSAGE ASKING FOR RETURN CALL. PT IN ROOM TO DISCUSS DISCHARGE PLANNING AND NEEDS. PT REPORTS SHE WAS LIVING AT FRIENDS HOMES WITH HER FIANCE AND NOW HAVE NO PLACE TO LIVE. PT REPORTS NEEDING ASSISTANCE WITH AMBULATION OVER DISTANCES AND HAS A WHEELCHAIR AT A FRIENDS HOUSE AND HER FAMILY HAS HER SHOWER CHAIR. PT HAS NO OTHER MEDICAL EQUIPENT AND NO EQUIPMENT PROVIDER PREFERENCE. PT HAS NO OUTSIDE SERVICES ASSISTING IN THE HOME. PT DOES NOT KNOW HOW ADULT PROTECTIVE SERVICES WAS CALLED BUT SUSPECTS IT WAS A FRIEND OR FAMILY MEMBER TO CALL AND PT REPORTS "THEY HAVE BEEN CALLED LOTS OF TIMES." CM DISCUSSED AVAILABILITY OF HOME HEALTH, REHAB SERVICES AND MEDICAL EQUIPMENT. PT HAS TALKED TO DERIK OF APS AND IS AGREEABLE TO PLACEMENT AT [facility] IN [place]. CHOICE SIGNED. CM FAXED REFERRAL FOR PLACEMENT TO KASHMIR DUMONT AT [phone]. CM WILL FOLLOW UP WITH CALL SIDDHARTH KASHMIR DUMONT TOMORROW AND CM ANTICIPATES COMPLETING DONA SCREENING SOON POSSIBLE IF IT IS REQUIRED FOR PLACEMENT. Pearl Stringer: Brock Chavez DCPIA - Discharge Planning Initial Assessment Updated by [id number]: Brock Chavez on 04/13/19 5:22 pm * Is the patient Alert and Oriented? Yes * How many steps to enter\\exit or inside your home? NONE * PCP DR. NUR * Pharmacy [facility] * Preadmission Environment Home with Family * ADLs Independent * Equipment Shower Chair Wheelchair * Other Equipment NO MEDICAL EQUIPMENT PROVIDER PREFERENCE * List name and contact numbers for known caregivers / representatives who currently or will assist patient after discharge: BONILLA LEONARD'S SISTER, * Verbal permission to speak to the caregivers and representatives has been obtained from the patient. N/A * Community resources currently utilized None * Please name any agencies selected above. NONE * Additional services required to return to the preadmission environment? Yes * Can the patient safely return to the preadmission environment? Yes * Has this patient been hospitalized within the prior 30 days at any hospital? Yes Coverage Notice Reviewer: [id number] Sukumar Juares Notice Issued Date-Time: 04/13/2019 7:55 Notice Type: Medicare Outpatient Observation Notice Notice Delivered To: Patient Relationship to Patient: Auto Porter Name: Delivery Method: HAND - Hand Delivered Lashonda Days: Prior Verbal Notification: Recipient Understood Notice: Yes Recipient Signature: Yes Med Rec Note Co-signed by Attending: Coverage Notice Comment: PALMER SERVED, EXPLAINED, SIGNED BY PATIENT AND ORIGINAL PROVIDED AND COPY PLACED ON CHART. Reviewer: [id number] Sukumar Chavez Notice Issued Date-Time: 04/13/2019 16:20 Notice Type: Patient Choice Letter Notice Delivered To: Patient Relationship to Patient: Auto Porter Name: Delivery Method: HAND - Hand Delivered Lashonda Days: Prior Verbal Notification: Recipient Understood Notice: Yes Recipient Signature: Yes Med Rec Note Co-signed by Attending: Coverage Notice Comment: [facility] Last DP export: 04/14/19 11:29 a Patient Name: CHRISTINE NGUYEN Page [id number] at 1803 All edits/amendments must be made on the electronic document DICTATION DATE: 04/14/191801 HOSE SEAMER: KAYODE 04/14/191801 RPT#: [id number] DC DATE: STATUS: ADM IN [facility] [address] [place] [address] END OF REPORT
--- NOTE | 2019-04-14 19:49 | NUR ---
REPORT RECIEVED AND ROUNDING COMPLETE. PATIENT LAYING IN BED IN LOW FOWLERS, PATIENT HAS A LEFT FOREARM PIV RUNNING NS AT 125ML/HR, PIV SHOWS NO S/SX OG INFILTRATION. PATIENT IS CONTRACTED ON LEFT SIDE DUE TO A PREVIOUS CVA. PATIENT HAS EYES CLOSED BUT EASILY AROUSED. PATIENT SHOWS NO S/SX OF DISTRESS AT THIS TIME. PATIENT STATES SHE HAS NO NEEDS AT THIS TIME. CALL LIGHT WITHIN REACH AND BED IN LOWEST LOCKED POSITION.
--- NOTE | 2019-04-15 01:05 | NUR ---
WHILE IN PATIENT'S ROOM NOTICED HER LEFT ARM IS PUFFY, PIV SEEMS TO BE INFILTRATED. PATIENT STATES SHE MAY HAVE PULLED ON IT. WILL REMOVE AND PLACE A NEW PIV.
[2019-04-15 01:18] VITALS: BP 92/57
--- NOTE | 2019-04-15 03:45 | NUR ---
I have reviewed this patient and I concur with the Shift Assessment completed by the Licensed Practical Nurse today this shift.
[2019-04-15 04:22] LABS: BASOPHILS 0.7 % (0-2); EOSINOPHILS 2.5 % (0-7); HEMATOCRIT 39.7 % (36.0-48.0); HEMOGLOBIN 13.1 g/dL (12-16); IMMATURE GRANULOCYTES 0.3 % (0-5); LYMPHOCYTES 44.6 % (15-50); MCH 30.4 pg (26.0-34.0); MEAN PLATELET VOLUME 11.1 fL (7.4-10.4); NEUTROPHILS 46.9 % (40-80); PLATELET COUNT 253 10x3/uL (130-400); RBC 4.31 10x6/uL (4.00-5.40); RDW 12.6 % (11.5-14.5); WBC 7.2 10x3/uL (4.8-10.8)
[2019-04-15 04:25] LABS: MCV 92.1 fL (80.0-100.0)
[2019-04-15 04:42] VITALS: BP 111/63
[2019-04-15 04:53] LABS: CALC OSMOLALITY 280 mosm/kg (275-300); CALCIUM 8.3 mg/dL (8.5-10.1); CARBON DIOXIDE 28.2 mmol/L (21.0-32.0); CHLORIDE - SERUM 105 mmol/L (98-107); CREATININE - SERUM 0.8 mg/dL (0.6-1.3); MAGNESIUM - SERUM 1.6 mg/dL (1.8-2.4); POTASSIUM - SERUM 3.4 mmol/L (3.5-5.1); SODIUM 139 mmol/L (136-145); UREA NITROGEN 16 mg/dL (7-18); eGFR NON AFRICAN AMERICAN 82 mL/min (90-120)
[2019-04-15 05:05] LABS: GLUCOSE 128 mg/dL (74-106)
--- NOTE | 2019-04-15 07:30 | NUR ---
AM ROUNDS COMPLETED. INTRODUCED MYSELF TO PT PRIMARY RN FOR TODAYS SHIFT. SHIFT ASSESSMENT COMPLETED. PT IS A&O LYING DOWN IN BED RESTING QUIETLY WAITING ON BREAKFAST. PT HAS R.HAND PIV WITH NS @125ML/HR INFUSING. PT STATES SHE DOESNT REALLY SLEEP AT NIGHT SO SHE IS TIRED AND WOULD LIKE TO SLEEP AND THEN EAT AT MEAL TIMES AND REST MORE. NO CURRENT NEEDS. CL IN REACH. WILL CTM.
[2019-04-15 08:00] VITALS: BP 95/55
--- NOTE | 2019-04-15 11:16 | NUR ---
FSBS 298 PROVIDED PT WITH INSULIN PER SS. PT IS AWAKE AND TALKING BUT STATES SHE JUST LIKES TO EAT AND SLEEP DURING THE DAY AND STAY UP AT NIGHT. PT DENIES ANY CURRENT PAIN OR NEEDS AT THIS TIME. CL IN REACH, BED IN LOWEST, SIDE RAILS X2. WILL CTM.
[2019-04-15 12:00] VITALS: BP 80/51
--- NOTE | 2019-04-15 12:05 | NUR ---
PTS BP SLIGHTLY LOWER THAN HER NORMAL WITH SBP IN THE 80S. PT IS ASYMPTOMATIC SITTING UP IN BED DENIES ANY DIZZINESS. MAP IS ABOVE 60. WILL DISCUSS WITH PRIMARY AND RECHECK SHORTLY AND CTM.
--- NOTE | 2019-04-15 13:32 | NUR ---
Nutrition Follow-up: Pt reports eating well. Agreed to drink Kevin daily for wound healing. Diet: Diabetic No new wt; last wt: 174# (04/13) Last BM: 04/14 per pt Labs noted: K+ 3.4, Glu 128, Ca 8.3, Mg 1.6 Meds noted: Lantus, KDur, MagOx, Humalog, Protonix, NS @ 125 -Add Kevin 1x daily for wound healing. -Need new wt; noted daily wts ordered. -RD following.
--- NOTE | 2019-04-15 15:07 | NUR ---
PTS BED COMPLETELY SATURATED WITH URINE. PUREWICK WAS OUT AND SHE STATES SOMEONE REMOVED HOWEVER I WAS NOT INFORMED. COMPLETE BED CHANGE PROVIDED AND REPOSITIONED PT UP IN BED. NEW PUREWICK NOW IN PLACE. L.HIP DRSG FELL OFF AND SKIN IS EXCORIATED BUT APPEARS LIKE A SMALL SKIN TEAR OR IRRITATION WILL TRY TO KEEP CLEAN AND DRY.
[2019-04-15 16:00] VITALS: BP 97/56
--- NOTE | 2019-04-15 18:25 | MORECARE ---
CASE MANAGEMENT DISCHARGE SUMMARY PATIENT: CHRISTINE NGUYEN UNIT: [id number] ADM DATE: 04/13/19 AGE: 43 : [birth year] SEX: F ROOM/BED: D.6674 AUTHOR: ARTIE,DOC PHYSICIAN: REFERRING PHYSICIAN: MICHAEL BUCKLEY DO DATE OF SERVICE: 04/15/19 Discharge Plan Patient Name: CHRISTINE NGUYEN Facility: [facility]:[place] : 1975 Planned Disposition: Mcfp Facility Anticipated Discharge Date: Discharge Date: Expected LOS: Initial Reviewer: [id number] Initial Review Date: 04/13/2019 Generated: 04/15/19 7:24 pm Comments DCP- Discharge Planning Updated by [id number]: Brock Chavez on 04/15/19 5:[address] Patient Name: CHRISTINE NGUYEN Encounter No: [id number] : 1975 Primary Insurance: MEDICARE A & B Anticipated DC Date: Planned Disposition: Mcfp Facility External Planned Provider: [facility] [place] Discharge Planning Comments: CM RECEIVED REQUEST TO MEET WITH PT AND DAUGHTER IN ROOM. CHRISTINE NGUYEN provided verbal consent to discuss current and ongoing needs with/in the presence of: SIMONE GUTHRIE, . QUESTIONS ANSWERED. PT AND DAUGHTER IN AGREEMENT WITH PLACEMENT AT [facility] AND IF DECLINED, WILL GO TO ANY NURSING FACILITY THAT WILL ACCEPT. PT ASKED THAT HOSPITAL FOLLOW UP ON HER MEDICAID APPLICATION THAT WAS STARTED TWO WEEKS AGO BY THE HOSPITAL. CM WAITING LEVEL 2 DONA SCREENING COMPLETION WELL ADMISSION DETERMINATION FROM [facility] IN [place] FOR PLACEMENT. CM TO FOLLOW UP WITH BUSINESS OFFICE TO CHECK ON STATUS OF MEDICAID APPLICATION. Heavy Duty Mechanic: Brock Chavez DCP- Discharge Planning Updated by [id number]: Brock Chavez on 04/14/19 5:[address] Patient Name: CHRISTINE NGUYEN Encounter No: [id number] : 1975 Primary Insurance: MEDICARE A & B Anticipated DC Date: Planned Disposition: Mcfp Facility External [facility] Discharge Planning Comments: CM RECEIVED NOTICE THAT PT WILL REQUIRE LEVEL 2 DONA SCREENING. PT CANNOT ADMIT TO ANY PENITENTIARY IN THE [facility] UNTIL THIS IS DONE. IT MAY TAKE UP TO 9 BUSINESS DAYS TO COMPLETE. CM WAITING LEVEL 2 DONA SCREENING COMPLETION WELL ADMISSION DETERMINATION FROM [facility] IN [place] FOR PLACEMENT. Heavy Duty Mechanic: Brock Chavez DCP- Discharge Planning Updated by [id number]: Brock Chavez on 04/14/19 11:[address] Patient Name: CHRISTINE NGUYEN Encounter No: [id number] : 1975 Primary Insurance: MEDICARE A & B Anticipated DC Date: Planned Disposition: Mcfp Facility External Planned Provider: [facility] Discharge Planning Comments: CM COMPLETED DONA SCREENING FORM, OBTAINED PT AND DOCTORS SIGNATURES. CM FAXED TO [facility] AT [phone] TO REQUEST ASSESSMENT DUE TO DIAGNOSIS OF BIPOLAR. CM WAITING DONA SCREENING COMPLETION WELL ADMISSION DETERMINATION FROM [facility] IN [place] FOR PLACEMENT. Heavy Duty Mechanic: Brock Chavez DCP- Discharge Planning Updated by [id number]: Brock Chavez on 04/13/19 4:[address] Patient Name: CHRISTINE NGUYEN Admission Status: ER Accout number: [id number] Admission Date: 04-12-2019 : 1975 Admission Diagnosis: Attending: MICHAEL BUCKLEY Current LOS: 1 Anticipated DC Date: Planned Disposition: Mcfp Facility Primary Insurance: MEDICARE A & B PLANNED EXTERNAL PROVIDER: [facility] Discharge Planning Comments: CM RECEIVED ORDER FOR "PT HAS NO WHERE TO GO." CM SPOKE TO DERIK BELLA OF [facility] [employer] [employer], WHO REPORTS HAVING OPEN INVESTIGATION BUT NO APS HOLD ON PATIENT AT THIS TIME. DERIK REPORTS PT HAS PLACEMENT AT [facility] IN [place] AND PROVIDED CONTACT INFORMATION FOR KASHMIR DUMONT, TELEPHONE [phone]. CM CALLED KASHMIR AND LEFT MESSAGE ASKING FOR RETURN CALL. PT IN ROOM TO DISCUSS DISCHARGE PLANNING AND NEEDS. PT REPORTS SHE WAS LIVING AT FRIENDS HOMES WITH HER FIANCE AND NOW HAVE NO PLACE TO LIVE. PT REPORTS NEEDING ASSISTANCE WITH AMBULATION OVER DISTANCES AND HAS A WHEELCHAIR AT A FRIENDS HOUSE AND HER FAMILY HAS HER SHOWER CHAIR. PT HAS NO OTHER MEDICAL EQUIPENT AND NO EQUIPMENT PROVIDER PREFERENCE. PT HAS NO OUTSIDE SERVICES ASSISTING IN THE HOME. PT DOES NOT KNOW HOW ADULT PROTECTIVE SERVICES WAS CALLED BUT SUSPECTS IT WAS A FRIEND OR FAMILY MEMBER TO CALL AND PT REPORTS "THEY HAVE BEEN CALLED LOTS OF TIMES." CM DISCUSSED AVAILABILITY OF HOME HEALTH, REHAB SERVICES AND MEDICAL EQUIPMENT. PT HAS TALKED TO DERIK KAN [facility] AND IS AGREEABLE TO PLACEMENT AT [facility] IN [place]. CHOICE SIGNED. CM FAXED REFERRAL FOR PLACEMENT TO KASHMIR DUMONT AT [phone]. CM WILL FOLLOW UP WITH CALL SIDHDARTH KASHMIR DUMONT TOMORROW AND CM ANTICIPATES COMPLETING DONA SCREENING SOON POSSIBLE IF IT IS REQUIRED FOR PLACEMENT. Heavy Duty Mechanic: Brock Chavez DCPIA - Discharge Planning Initial Assessment Updated by [id number]: Brock Chavez on 04/13/19 5:22 pm * Is the patient Alert and Oriented? Yes * How many steps to enter\\exit or inside your home? NONE * PCP DR. NUR * Pharmacy [facility] * Preadmission Environment Home with Family * ADLs Independent * Equipment Shower Chair Wheelchair * Other Equipment NO MEDICAL EQUIPMENT PROVIDER PREFERENCE * List name and contact numbers for known caregivers / representatives who currently or will assist patient after discharge: BONILLA LEONARD'S SISTER, * Verbal permission to speak to the caregivers and representatives has been obtained from the patient. N/A * Community resources currently utilized None * Please name any agencies selected above. NONE * Additional services required to return to the preadmission environment? Yes * Can the patient safely return to the preadmission environment? Yes * Has this patient been hospitalized within the prior 30 days at any hospital? Yes Coverage Notice Reviewer: [id number] - Erum Juares Notice Issued Date-Time: 04/13/2019 7:55 Notice Type: Medicare Outpatient Observation Notice Notice Delivered To: Patient Relationship to Patient: Utilities Service Investigator Name: Delivery Method: HAND - Hand Delivered Lashonda Days: Prior Verbal Notification: Recipient Understood Notice: Yes Recipient Signature: Yes Med Rec Note Co-signed by Attending: Coverage Notice Comment: SPENCER SERVED, EXPLAINED, SIGNED BY PATIENT AND ORIGINAL PROVIDED AND COPY PLACED ON CHART. Reviewer: [id number] - Brock Chavez Notice Issued Date-Time: 04/13/2019 16:20 Notice Type: Patient Choice Letter Notice Delivered To: Patient Relationship to Patient: Utilities Service Investigator Name: Delivery Method: HAND - Hand Delivered Lashonda Days: Prior Verbal Notification: Recipient Understood Notice: Yes Recipient Signature: Yes Med Rec Note Co-signed by Attending: Coverage Notice Comment: [facility] Last DP export: 04/14/19 5:03 p Patient Name: CHRISTINE NGUYEN Page 15737 at 1825 All edits/amendments must be made on the electronic document DICTATION DATE: 04/15/191823 PARKER: KAYODE 04/15/191823 RPT#: [id number] DC DATE: STATUS: ADM IN [facility] [address] [place] [address] END OF REPORT
--- NOTE | 2019-04-15 18:50 | NUR ---
COMPLETE BEDBATH GIVEN PER PT REQUEST. REPOSITIONED PT UP IN BED AND SHE VOICED THANKS. PT IS STILL WAITING ON PLACEMENT BUT STATES SHE IS FEELING GREAT OVERALL. PUREWICK REPOSITIONED AND IN PLACE. NO FURTHER NEEDS AT THIS TIME. WILL PASS ON IN SHIFT REPORT.
[2019-04-15 20:30] VITALS: BP 98/61
[2019-04-16 00:30] VITALS: BP 97/60
[2019-04-16 04:30] VITALS: BP 90/55
[2019-04-16 05:05] LABS: BASOPHILS 0.9 % (0-2); EOSINOPHILS 2.4 % (0-7); HEMATOCRIT 39.1 % (36.0-48.0); HEMOGLOBIN 12.8 g/dL (12-16); IMMATURE GRANULOCYTES 0.2 % (0-5); LYMPHOCYTES 41.5 % (15-50); MCH 30.1 pg (26.0-34.0); MCHC 32.7 g/dL (31.0-37.0); MEAN PLATELET VOLUME 11.5 fL (7.4-10.4); PLATELET COUNT 286 10x3/uL (130-400); RBC 4.25 10x6/uL (4.00-5.40); RDW 12.6 % (11.5-14.5)
[2019-04-16 05:12] LABS: WBC 9.1 10x3/uL (4.8-10.8)
[2019-04-16 05:18] LABS: CALC OSMOLALITY 283 mosm/kg (275-300); CALCIUM 8.6 mg/dL (8.5-10.1); CARBON DIOXIDE 28.9 mmol/L (21.0-32.0); CHLORIDE - SERUM 103 mmol/L (98-107); CREATININE - SERUM 0.7 mg/dL (0.6-1.3); MAGNESIUM - SERUM 1.6 mg/dL (1.8-2.4); POTASSIUM - SERUM 3.7 mmol/L (3.5-5.1); SODIUM 138 mmol/L (136-145); UREA NITROGEN 13 mg/dL (7-18); eGFR NON AFRICAN AMERICAN > 90 mL/min (90-120)
[2019-04-16 05:29] LABS: GLUCOSE 241 mg/dL (74-106)
[2019-04-16 08:00] VITALS: BP 102/62
--- NOTE | 2019-04-16 09:44 | NUR ---
PT AWAKE AND ORIENTED, CAHNGED PT, CLEAN LINNEN. CL IN REACH, SRX2.
--- NOTE | 2019-04-16 11:24 | NUR ---
I have reviewed this patient and I concur with the Shift Assessment completed by the Licensed Practical Nurse today this shift.
[2019-04-16 16:00] VITALS: BP 89/46
--- NOTE | 2019-04-16 19:15 | NUR ---
PATIENT ALERT AND ORIENTED WATCHING TV WHEN ENTERING THE ROOM. PATIENT HAS LEFT SIDED WEAKNESS, MAINLY IN UPPER EXTREMETY. CURVES IN TOWARDS ABDOMEN. PATIENT STATES "SOME FEELING" BUT UNABLE TO MOVE. LOWER LEFT EXTREMETY HAS FEELING AND SOME MOVEMENT BUT PATIENT UNABLE TO AMBULATE. RIGHT SIDE PATIENT IF ABLE TO PERFORM HAND SPINNING MACHINE TENDER AND FOOT PUMPS APPROPRIATELY UPON COMMAND. PATIENT HAS RIGHT HAND IV THAT IS INFUSING NS @ 125 PER ORDER. IV IS PATENT WITH NO SWELLING OR REDNESS NOTED AT THE INSERTION SITE. PATIENT HAS A LEFT HIM WOUND THAT IS COVERED WITH MEPILEX DRESSING THAT IS CLEAN, DRY, AND INTACT. PATIENT HAS PUREWICK AND CANNISTER CURRENTLY CONTAINS YELLOW, CLOUDY URINE. DENIES NEEDS AT THIS TIME. CALL LIGHT IN REACH. CPOC.
[2019-04-16 21:30] VITALS: BP 99/66
--- NOTE | 2019-04-16 22:10 | NUR ---
TUBING CHANGED PER POLICY PROTOCAL.
[2019-04-17 00:30] VITALS: BP 117/70
--- NOTE | 2019-04-17 01:57 | NUR ---
PATIENT RESTING WITH NO SIGNS OR SYMPTOMS OF DISTRESS AT THIS TIME. CALL LIGHT IN REACH. CPOC.
[2019-04-17 04:30] VITALS: BP 102/62
--- NOTE | 2019-04-17 04:35 | NUR ---
I have reviewed this patient and I concur with the Shift Assessment completed by the Licensed Practical Nurse today this shift.
[2019-04-17 05:00] LABS: BASOPHILS 0.6 % (0-2); EOSINOPHILS 2.3 % (0-7); HEMATOCRIT 40.2 % (36.0-48.0); HEMOGLOBIN 13.3 g/dL (12-16); IMMATURE GRANULOCYTES 0.5 % (0-5); LYMPHOCYTES 43.7 % (15-50); MCH 30.2 pg (26.0-34.0); MCHC 33.1 g/dL (31.0-37.0); MCV 91.4 fL (80.0-100.0); MEAN PLATELET VOLUME 11.2 fL (7.4-10.4); MONOCYTES 4.9 % (2-11); PLATELET COUNT 281 10x3/uL (130-400); RDW 12.6 % (11.5-14.5); WBC 8.7 10x3/uL (4.8-10.8)
[2019-04-17 05:30] LABS: CALC OSMOLALITY 280 mosm/kg (275-300); CALCIUM 8.6 mg/dL (8.5-10.1); CARBON DIOXIDE 30.9 mmol/L (21.0-32.0); CHLORIDE - SERUM 104 mmol/L (98-107); CREATININE - SERUM 0.7 mg/dL (0.6-1.3); MAGNESIUM - SERUM 1.6 mg/dL (1.8-2.4); POTASSIUM - SERUM 3.8 mmol/L (3.5-5.1); SODIUM 138 mmol/L (136-145); UREA NITROGEN 14 mg/dL (7-18); eGFR NON AFRICAN AMERICAN > 90 mL/min (90-120)
[2019-04-17 05:32] LABS: GLUCOSE 170 mg/dL (74-106)
[2019-04-17 08:00] VITALS: BP 98/63
[2019-04-17 16:00] VITALS: BP 107/64
--- NOTE | 2019-04-17 19:10 | NUR ---
BEDSIDE REPORT RECEIVED FROM DAY SHIFT, PT CARE ASSUMED. INTRODUCED SELF AND WROTE NAME ON BOARD. PT SITTING UP IN BED EATING YOGURT AND WATCHING TV, AAOX4. REQUESTING ROQUE MORALES, PROVIDED. DENIES ANY OTHER NEEDS AT THIS TIME. BED IN LOWEST POSITION, SR X2, CALL LIGHT WITHIN REACH. WILL CONTINUE TO MONITOR.
[2019-04-17 20:30] VITALS: BP 91/60
[2019-04-18 00:30] VITALS: BP 95/47
[2019-04-18 04:30] VITALS: BP 99/57
[2019-04-18 05:58] LABS: BASOPHILS 0.7 % (0-2); HEMATOCRIT 38.4 % (36.0-48.0); HEMOGLOBIN 12.7 g/dL (12-16); IMMATURE GRANULOCYTES 0.5 % (0-5); LYMPHOCYTES 34.9 % (15-50); MCH 30.5 pg (26.0-34.0); MCHC 33.1 g/dL (31.0-37.0); MCV 92.1 fL (80.0-100.0); MEAN PLATELET VOLUME 11.1 fL (7.4-10.4); NEUTROPHILS 56.9 % (40-80); PLATELET COUNT 295 10x3/uL (130-400); RBC 4.17 10x6/uL (4.00-5.40); RDW 12.7 % (11.5-14.5); WBC 9.4 10x3/uL (4.8-10.8)
[2019-04-18 06:45] LABS: CALC OSMOLALITY 286 mosm/kg (275-300); CALCIUM 8.8 mg/dL (8.5-10.1); CARBON DIOXIDE 30.3 mmol/L (21.0-32.0); CHLORIDE - SERUM 101 mmol/L (98-107); CREATININE - SERUM 0.8 mg/dL (0.6-1.3); GLUCOSE 302 mg/dL (74-106); MAGNESIUM - SERUM 1.7 mg/dL (1.8-2.4); POTASSIUM - SERUM 3.5 mmol/L (3.5-5.1); SODIUM 138 mmol/L (136-145); UREA NITROGEN 13 mg/dL (7-18); eGFR NON AFRICAN AMERICAN 82 mL/min (90-120)
--- NOTE | 2019-04-18 07:38 | NUR ---
PT AWAKE AND ORIENTED, LYING IN BED STATING SHE'S STARVING TO AND IS READY FOR BREAKFAST. NO COMPLAINTS OR CONCERNNS AT THIST ELVIN. CL RHETT,S RX2.
--- NOTE | 2019-04-18 08:59 | NUR ---
OT NOTE:(DOS 04/15/19) PT COMPLETED RUE AROM WITHIN AVAILABLE ROM. PT COMPLETED BED MOB TASKS WITH MOD A. PT COMPLETED GROOMING TASKS USING RUE WITH SET UP. [id number] THANK YOU,XANDER BENITEZ
[2019-04-18 10:26] VITALS: BP 82/53
--- NOTE | 2019-04-18 10:31 | NUR ---
PT AWAKE AND ORIENTED. ASSISTED CHANGING PADDING PT HAD INCONTINENT EPISODE. NOC OMPALINTS OR CONCERNS, C/O OF IV BURNING, WILL NOT ALLOW ME TO RESTICK AT THIS TIME. WILL ATTEMPT AGAIN IN A BIT. CL IN REACH, SRX2, NO FAMILY AT BEDSIDE.
--- NOTE | 2019-04-18 11:42 | MORECARE ---
CASE MANAGEMENT DISCHARGE SUMMARY PATIENT: CHRISTINE NGUYEN UNIT: [id number] ADM DATE: 04/13/19 AGE: 43 : [birth year] SEX: F ROOM/BED: D.1903 AUTHOR: ARTIE,DOC PHYSICIAN: REFERRING PHYSICIAN: MICHAEL BUCKLEY DO DATE OF SERVICE: 04/18/19 Discharge Plan Patient Name: CHRISTINE NGUYEN Facility: [facility]:[place] : 1975 Planned Disposition: Intermediate Facility Anticipated Discharge Date: Discharge Date: Expected LOS: Initial Reviewer: [id number] Initial Review Date: 04/13/2019 Generated: 04/18/19 12:41 pm Comments DCP- Discharge Planning Updated by [id number]: Brock Chavez on 04/18/19 10:[address] Patient Name: CHRISTINE NGUYEN Encounter No: [id number] : 1975 Primary Insurance: MEDICARE A & B Anticipated DC Date: Planned Disposition: Intermediate Facility External Planned Provider: [facility] Discharge Planning Comments: CM RECEIVED CALL FROM CRISTAL GODOY OF [employer], SHE WILL MEET WITH PT FOR THE LEVEL 2 DONA SCREENING TODAY. CM PRINTED DOCUMENTS JUANY BEE WILL NEED UPON HER ARRIVAL AND WILL PROVIDE THEM TO HER. CM CALLED WYATT OF [employer], LEFT DETAILED MESSAGE TO FOLLOW UP ON MEDICAID APPLICATION STATUS THAT PT REPORTS WAS STARTED TWO WEEKS AGO BY THE HOSPITAL. CM RECEIVED CALL FROM YVROSE OF [facility], REQUSTING FAX UPDATE BEFORE NOON TOMORROW FOR COMMITTE REVIEW TOMORROW. CM WAITING LEVEL 2 DONA SCREENING COMPLETION WELL ADMISSION DETERMINATION FROM [facility] IN [place] FOR PLACEMENT. CM WAITING INFORMATION ON STATUS OF MEDICAID APPLICATION. Textile Supervisor: Brock Chavez DCP- Discharge Planning Updated by [id number]: Brock Chavez on 04/15/19 5:[address] Patient Name: CHRISTINE NGUYEN Encounter No: [id number] : 1975 Primary Insurance: MEDICARE A & B Anticipated DC Date: Planned Disposition: Intermediate Facility External [facility] Discharge Planning Comments: CM RECEIVED REQUEST TO MEET WITH PT AND DAUGHTER IN ROOM. CHRISTINE NGUYEN provided verbal consent to discuss current and ongoing needs with/in the presence of: SIMONE GUTHRIE, . QUESTIONS ANSWERED. PT AND DAUGHTER IN AGREEMENT WITH PLACEMENT AT [facility] AND IF DECLINED, WILL GO TO ANY NURSING FACILITY THAT WILL ACCEPT. PT ASKED THAT HOSPITAL FOLLOW UP ON HER MEDICAID APPLICATION THAT WAS STARTED TWO WEEKS AGO BY THE HOSPITAL. CM WAITING LEVEL 2 DONA SCREENING COMPLETION WELL ADMISSION DETERMINATION FROM [facility] IN [place] FOR PLACEMENT. CM TO FOLLOW UP WITH BUSINESS OFFICE TO CHECK ON STATUS OF MEDICAID APPLICATION. Textile Supervisor: Brock Chavez DCP- Discharge Planning Updated by [id number]: Brock Chavez on 04/14/19 5:[address] Patient Name: CHRISTINE NGUYEN Encounter No: [id number] : 1975 Primary Insurance: MEDICARE A & B Anticipated DC Date: Planned Disposition: Intermediate Facility External Planned Provider: [facility] Discharge Planning Comments: CM RECEIVED NOTICE THAT PT WILL REQUIRE LEVEL 2 DONA SCREENING. PT CANNOT ADMIT TO ANY CARE HOME IN THE PENDING SALE TO [facility] UNTIL THIS IS DONE. IT MAY TAKE UP TO 9 BUSINESS DAYS TO COMPLETE. CM WAITING LEVEL 2 DONA SCREENING COMPLETION WELL ADMISSION DETERMINATION FROM [facility] FOR PLACEMENT. Textile Supervisor: Brock Chavez DCP- Discharge Planning Updated by [id number]: Brock Chavez on 04/14/19 11:[address] Patient Name: CHRISTINE NGUYEN Encounter No: [id number] : 1975 Primary Insurance: MEDICARE A & B Anticipated DC Date: Planned Disposition: Intermediate Facility External Planned Provider: [facility] Discharge Planning Comments: CM COMPLETED DONA SCREENING FORM, OBTAINED PT AND DOCTORS SIGNATURES. CM FAXED TO [employer] AT [phone] TO REQUEST ASSESSMENT DUE TO DIAGNOSIS OF BIPOLAR. CM WAITING DONA SCREENING COMPLETION WELL ADMISSION DETERMINATION FROM [facility] FOR PLACEMENT. Textile Supervisor: Brock Chavez DCP- Discharge Planning Updated by [id number]: Brock Chavez on 04/13/19 4:[address] Patient Name: CHRISTINE NGUYEN Admission Status: ER Accout number: [id number] Admission Date: 04-12-2019 : 1975 Admission Diagnosis: Attending: MICHAEL BUCKLEY Current LOS: 1 Anticipated DC Date: Planned Disposition: Intermediate Facility Primary Insurance: MEDICARE A & B PLANNED EXTERNAL PROVIDER: [facility] Discharge Planning Comments: CM RECEIVED ORDER FOR "PT HAS NO WHERE TO GO." CM SPOKE TO DERIK BELLA OF [facility]ULT [facility], WHO REPORTS HAVING OPEN INVESTIGATION BUT NO APS HOLD ON PATIENT AT THIS TIME. DERIK REPORTS PT HAS PLACEMENT AT [facility] IN [place] AND PROVIDED CONTACT INFORMATION FOR K[facility]MIR DUMONT, TELEPHONE [phone]. CM CALLED KASHMIR AND LEFT MESSAGE ASKING FOR RETURN CALL. PT IN ROOM TO DISCUSS DISCHARGE PLANNING AND NEEDS. PT REPORTS SHE WAS LIVING AT FRIENDS HOMES WITH HER FIANCE AND NOW HAVE NO PLACE TO LIVE. PT REPORTS NEEDING ASSISTANCE WITH AMBULATION OVER DISTANCES AND HAS A WHEELCHAIR AT A FRIENDS HOUSE AND HER FAMILY HAS HER SHOWER CHAIR. PT HAS NO OTHER MEDICAL EQUIPENT AND NO EQUIPMENT PROVIDER PREFERENCE. PT HAS NO OUTSIDE SERVICES ASSISTING IN THE HOME. PT DOES NOT KNOW HOW ADULT PROTECTIVE SERVICES WAS CALLED BUT SUSPECTS IT WAS A FRIEND OR FAMILY MEMBER TO CALL AND PT REPORTS "THEY HAVE BEEN CALLED LOTS OF TIMES." CM DISCUSSED AVAILABILITY OF HOME HEALTH, REHAB SERVICES AND MEDICAL EQUIPMENT. PT HAS TALKED TO DERIK OF [employer] AND IS AGREEABLE TO PLACEMENT AT [facility] IN [place]. CHOICE SIGNED. CM FAXED REFERRAL FOR PLACEMENT TO [facility] DUM[facility] AT [phone]. CM WILL FOLLOW UP WITH CALL SIDDHARTH KASHMIR DUMONT TOMORROW AND CM ANTICIPATES COMPLETING DONA SCREENING SOON POSSIBLE IF IT IS REQUIRED FOR PLACEMENT. Textile Supervisor: Brock Chavez DCPIA - Discharge Planning Initial Assessment Updated by [id number]: Brock Chavez on 04/13/19 5:22 pm * Is the patient Alert and Oriented? Yes * How many steps to enter\\exit or inside your home? NONE * PCP DR. NUR * Pharmacy [facility] * Preadmission Environment Home with Family * ADLs Independent * Equipment Shower Chair Wheelchair * Other Equipment NO MEDICAL EQUIPMENT PROVIDER PREFERENCE * List name and contact numbers for known caregivers / representatives who currently or will assist patient after discharge: MARIA DOLORES CORONADOBONILLA DAVIS'S SISTER, * Verbal permission to speak to the caregivers and representatives has been obtained from the patient. N/A * Community resources currently utilized None * Please name any agencies selected above. NONE * Additional services required to return to the preadmission environment? Yes * Can the patient safely return to the preadmission environment? Yes * Has this patient been hospitalized within the prior 30 days at any hospital? Yes Coverage Notice Reviewer: [id number] Sukumar Juares Notice Issued Date-Time: 04/13/2019 7:55 Notice Type: Medicare Outpatient Observation Notice Notice Delivered To: Patient Relationship to Patient: Records Management Assistant Name: Delivery Method: HAND - Hand Delivered Lashonda Days: Prior Verbal Notification: Recipient Understood Notice: Yes Recipient Signature: Yes Med Rec Note Co-signed by Attending: Coverage Notice Comment: PALMER SERVED, EXPLAINED, SIGNED BY PATIENT AND ORIGINAL PROVIDED AND COPY PLACED ON CHART. Reviewer: [id number] Sukumar Chavez Notice Issued Date-Time: 04/13/2019 16:20 Notice Type: Patient Choice Letter Notice Delivered To: Patient Relationship to Patient: Records Management Assistant Name: Delivery Method: HAND - Hand Delivered Lashonda Days: Prior Verbal Notification: Recipient Understood Notice: Yes Recipient Signature: Yes Med Rec Note Co-signed by Attending: Coverage Notice Comment: [facility] Last DP export: 04/15/19 5:25 p Patient Name: CHRISTINE NGUYEN Page 47546 at 1142 All edits/amendments must be made on the electronic document DICTATION DATE: 04/18/19 1141 PROCUREMENT CLERK: KAYODE 04/18/19 1141 RPT#: [id number] DC DATE: STATUS: ADM IN [facility] [address] [place] [address] END OF REPORT
--- NOTE | 2019-04-18 12:32 | NUR ---
PT AWAKE AND ORIENTED EATING LUNCH, CLEAN DRY AT THIS TIME. BROUGHT ICE PER REQUEST. NO COMPLAINTS OR CONCERNS AT THIS TIME. CL IN REACH, SRX2.
[2019-04-18 14:55] VITALS: BP 103/67
--- NOTE | 2019-04-18 17:36 | NUR ---
PT AWAKE AND ORIENTED, TECH CLEANED/DRIED PT. NO COMPLAINTS OR CONCERNS, NEW I/V PLACED RFA. CL IN REACH, SRX2.
--- NOTE | 2019-04-18 18:10 | MORECARE ---
CASE MANAGEMENT DISCHARGE SUMMARY PATIENT: CHRISTINE NGUYEN UNIT: [id number] ADM DATE: 04/13/19 AGE: 43 : [birth year] SEX: F ROOM/BED: D.4651 AUTHOR: ARTIE,DOC PHYSICIAN: REFERRING PHYSICIAN: MICHAEL BUCKLEY DO DATE OF SERVICE: 04/18/19 Discharge Plan Patient Name: CHRISTINE NGUYEN Facility: [facility]:[place] : 1975 Planned Disposition: Alf Facility Anticipated Discharge Date: Discharge Date: Expected LOS: Initial Reviewer: [id number] Initial Review Date: 04/13/2019 Generated: 04/18/19 7:09 pm Comments DCP- Discharge Planning Updated by [id number]: Brock Chavez on 04/18/19 5:[address] Patient Name: CHRISTINE NGUYEN Encounter No: [id number] : 1975 Primary Insurance: MEDICARE A & B Anticipated DC Date: Planned Disposition: Alf Facility External Planned Provider: [facility] Discharge Planning Comments: CM RECEIVED CALL FROM CRISTAL GODOY OF [employer] [facility], SHE WILL MEET WITH PT FOR THE LEVEL 2 DONA SCREENING TODAY. CM PRINTED DOCUMENTS JUANY BEE WILL NEED UPON HER ARRIVAL AND WILL PROVIDE THEM TO HER. CM CALLED WYATT OF [employer], LEFT DETAILED MESSAGE TO FOLLOW UP ON MEDICAID APPLICATION STATUS THAT PT REPORTS WAS STARTED TWO WEEKS AGO BY THE HOSPITAL. CM RECEIVED CALL FROM YVROSE OF [facility], REQUSTING FAX UPDATE BEFORE NOON TOMORROW FOR COMMITTE REVIEW TOMORROW. CM WAITING LEVEL 2 DONA SCREENING COMPLETION WELL ADMISSION DETERMINATION FROM [facility] IN [place] FOR PLACEMENT. CM WAITING INFORMATION ON STATUS OF MEDICAID APPLICATION. Freezing Room Worker: Brock Chavez Appended by Brock Chavez on 04/18/2019 18:09 VARIETY LATHE OPERATOR: CM FAXED UPDATE TO [facility], . CM WAITING LEVEL 2 DONA SCREENING COMPLETION WELL ADMISSION DETERMINATION FROM [facility] IN [place] FOR PLACEMENT. CM WAITING INFORMATION ON STATUS OF MEDICAID APPLICATION. Freezing Room Worker: Brock Chavez DCP- Discharge Planning Updated by [id number]: Brock Chavez on 04/15/19 5:[address] Patient Name: CHRISTINE NGUYEN Encounter No: [id number] : 1975 Primary Insurance: MEDICARE A & B Anticipated DC Date: Planned Disposition: Alf Facility External Planned Provider: [facility] Discharge Planning Comments: CM RECEIVED REQUEST TO MEET WITH PT AND DAUGHTER IN ROOM. CHRISTINE NGUYEN provided verbal consent to discuss current and ongoing needs with/in the presence of: SIMONE GUTHRIE, . QUESTIONS ANSWERED. PT AND DAUGHTER IN AGREEMENT WITH PLACEMENT AT [facility] AND IF DECLINED, WILL GO TO ANY NURSING FACILITY THAT WILL ACCEPT. PT ASKED THAT HOSPITAL FOLLOW UP ON HER MEDICAID APPLICATION THAT WAS STARTED TWO WEEKS AGO BY THE HOSPITAL. CM WAITING LEVEL 2 DONA SCREENING COMPLETION WELL ADMISSION DETERMINATION FROM [facility] IN [place] FOR PLACEMENT. CM TO FOLLOW UP WITH BUSINESS OFFICE TO CHECK ON STATUS OF MEDICAID APPLICATION. Freezing Room Worker: Brock Chavez DCP- Discharge Planning Updated by [id number]: Brock Chavez on 04/14/19 5:[address] Patient Name: CHRISTINE NGUYEN Encounter No: [id number] : 1975 Primary Insurance: MEDICARE A & B Anticipated DC Date: Planned Disposition: Alf Facility External Planned Provider: [facility] Discharge Planning Comments: CM RECEIVED NOTICE THAT PT WILL REQUIRE LEVEL 2 DONA SCREENING. PT CANNOT ADMIT TO ANY RETIREMENT IN THE [facility] UNTIL THIS IS DONE. IT MAY TAKE UP TO 9 BUSINESS DAYS TO COMPLETE. CM WAITING LEVEL 2 DONA SCREENING COMPLETION WELL ADMISSION DETERMINATION FROM [facility] IN [place] FOR PLACEMENT. Freezing Room Worker: Brock Chavez DCP- Discharge Planning Updated by [id number]: Brock Chavez on 04/14/19 11:[address] Patient Name: CHRISTINE NGUYEN Encounter No: [id number] : 1975 Primary Insurance: MEDICARE A & B Anticipated DC Date: Planned Disposition: Alf Facility External Planned Provider: [facility] Discharge Planning Comments: CM COMPLETED DONA SCREENING FORM, OBTAINED PT AND DOCTORS SIGNATURES. CM FAXED TO [employer] AT [phone] TO REQUEST ASSESSMENT DUE TO DIAGNOSIS OF BIPOLAR. CM WAITING DONA SCREENING COMPLETION WELL ADMISSION DETERMINATION FROM [facility] IN [place] FOR PLACEMENT. Freezing Room Worker: Brock Chavez DCP- Discharge Planning Updated by [id number]: Brock Chavez on 04/13/19 4:[address] Patient Name: CHRISTINE NGUYEN Admission Status: ER Accout number: [id number] Admission Date: 04-12-2019 : 1975 Admission Diagnosis: Attending: MICHAEL BUCKLEY Current LOS: 1 Anticipated DC Date: Planned Disposition: Alf Facility Primary Insurance: MEDICARE A & B PLANNED EXTERNAL PROVIDER: [facility] Discharge Planning Comments: CM RECEIVED ORDER FOR "PT HAS NO WHERE TO GO." CM SPOKE TO DERIK BELLA OF [facility] [employer], WHO REPORTS HAVING OPEN INVESTIGATION BUT NO APS HOLD ON PATIENT AT THIS TIME. DERIK REPORTS PT HAS PLACEMENT AT [facility] IN [place] AND PROVIDED CONTACT INFORMATION FOR KASHMIR DUMONT, TELEPHONE [phone]. CM CALLED KASHMIR AND LEFT MESSAGE ASKING FOR RETURN CALL. PT IN ROOM TO DISCUSS DISCHARGE PLANNING AND NEEDS. PT REPORTS SHE WAS LIVING AT FRIENDS HOMES WITH HER FIANCE AND NOW HAVE NO PLACE TO LIVE. PT REPORTS NEEDING ASSISTANCE WITH AMBULATION OVER DISTANCES AND HAS A WHEELCHAIR AT A FRIENDS HOUSE AND HER FAMILY HAS HER SHOWER CHAIR. PT HAS NO OTHER MEDICAL EQUIPENT AND NO EQUIPMENT PROVIDER PREFERENCE. PT HAS NO OUTSIDE SERVICES ASSISTING IN THE HOME. PT DOES NOT KNOW HOW ADULT PROTECTIVE SERVICES WAS CALLED BUT SUSPECTS IT WAS A FRIEND OR FAMILY MEMBER TO CALL AND PT REPORTS "THEY HAVE BEEN CALLED LOTS OF TIMES." CM DISCUSSED AVAILABILITY OF HOME HEALTH, REHAB SERVICES AND MEDICAL EQUIPMENT. PT HAS TALKED TO DERIK OF APS AND IS AGREEABLE TO PLACEMENT AT [facility] IN [place]. CHOICE SIGNED. CM FAXED REFERRAL FOR PLACEMENT TO KASHMIR DUMONT AT [phone]. CM WILL FOLLOW UP WITH CALL SIDDHARTH KASHMIR DUMONT TOMORROW AND CM ANTICIPATES COMPLETING DONA SCREENING SOON POSSIBLE IF IT IS REQUIRED FOR PLACEMENT. Freezing Room Worker: Brock Chavez DCPIA - Discharge Planning Initial Assessment Updated by [id number]: Brock Chavez on 04/13/19 5:22 pm * Is the patient Alert and Oriented? Yes * How many steps to enter\\exit or inside your home? NONE * PCP DR. NUR * Pharmacy [facility] * Preadmission Environment Home with Family * ADLs Independent * Equipment Shower Chair Wheelchair * Other Equipment NO MEDICAL EQUIPMENT PROVIDER PREFERENCE * List name and contact numbers for known caregivers / representatives who currently or will assist patient after discharge: BONILLA LEONARD'S SISTER, * Verbal permission to speak to the caregivers and representatives has been obtained from the patient. N/A * Community resources currently utilized None * Please name any agencies selected above. NONE * Additional services required to return to the preadmission environment? Yes * Can the patient safely return to the preadmission environment? Yes * Has this patient been hospitalized within the prior 30 days at any hospital? Yes Coverage Notice Reviewer: [id number] Sukumar Juares Notice Issued Date-Time: 04/13/2019 7:55 Notice Type: Medicare Outpatient Observation Notice Notice Delivered To: Patient Relationship to Patient: Federal Java Developer Name: Delivery Method: HAND - Hand Delivered Lashonda Days: Prior Verbal Notification: Recipient Understood Notice: Yes Recipient Signature: Yes Med Rec Note Co-signed by Attending: Coverage Notice Comment: SPENCER SERVED, EXPLAINED, SIGNED BY PATIENT AND ORIGINAL PROVIDED AND COPY PLACED ON CHART. Reviewer: [id number] Sukumar Chavez Notice Issued Date-Time: 04/13/2019 16:20 Notice Type: Patient Choice Letter Notice Delivered To: Patient Relationship to Patient: Federal Java Developer Name: Delivery Method: HAND - Hand Delivered Lashonda Days: Prior Verbal Notification: Recipient Understood Notice: Yes Recipient Signature: Yes Med Rec Note Co-signed by Attending: Coverage Notice Comment: [facility] Last DP export: 04/18/19 10:41 a Patient Name: CHRISTINE NGUYEN Page [id number] at 1810 All edits/amendments must be made on the electronic document DICTATION DATE: 04/18/191808 CLAMP CARRIER OPERATOR: KAYODE 04/18/191808 RPT#: [id number] OR DATE: STATUS: ADM IN [facility] [address] [place] [address] END OF REPORT
--- NOTE | 2019-04-18 18:17 | MORECARE ---
CASE MANAGEMENT DISCHARGE SUMMARY PATIENT: CHRISTINE NGUYEN UNIT: [id number] ADM DATE: 04/13/19 AGE: 43 : [birth year] SEX: F ROOM/BED: D.1403 AUTHOR: ARTIE,DOC PHYSICIAN: REFERRING PHYSICIAN: MICHAEL BUCKLEY DO DATE OF SERVICE: 04/18/19 Discharge Plan Patient Name: CHRISTINE NGUYEN Facility: [facility]:[place] : 1975 Planned Disposition: Usp Facility Anticipated Discharge Date: Discharge Date: Expected LOS: Initial Reviewer: [id number] Initial Review Date: 04/13/2019 Generated: 04/18/19 7:16 pm Comments DCP- Discharge Planning Updated by [id number]: Brock Chavez on 04/18/19 5:[address] Patient Name: CHRISTINE NGUYEN Encounter No: [id number] : 1975 Primary Insurance: MEDICARE A & B Anticipated DC Date: Planned Disposition: Usp Facility External Planned Provider: [facility] Discharge Planning Comments: CM RECEIVED CALL FROM CRISTAL GODOY OF [employer], SHE WILL MEET WITH PT FOR THE LEVEL 2 DONA SCREENING TODAY. CM PRINTED DOCUMENTS TAMARILU BEE WILL NEED UPON HER ARRIVAL AND WILL PROVIDE THEM TO HER. CM CALLED WYATT [employer], LEFT DETAILED MESSAGE TO FOLLOW UP ON MEDICAID APPLICATION STATUS THAT PT REPORTS WAS STARTED TWO WEEKS AGO BY THE HOSPITAL. CM RECEIVED CALL FROM YVROSE OF [facility], REQUSTING FAX UPDATE BEFORE NOON TOMORROW FOR COMMITTE REVIEW TOMORROW. CM WAITING LEVEL 2 DONA SCREENING COMPLETION WELL ADMISSION DETERMINATION FROM [facility] IN [place] FOR PLACEMENT. CM WAITING INFORMATION ON STATUS OF MEDICAID APPLICATION. Job Boss: Brock Chavez Appended by Brock Chavez on 04/18/2019 18:09 WINE MERCHANT: CM FAXED UPDATE TO [facility], . CM SPOKE TO WYATT OF [employer] WHO INFORMED CM THAT PT HAS APPLIED FOR SECONDARY MEDICAID "[id number]" AND THERE IS NO DETERMINATION STATUS OF YET. CM WAITING LEVEL 2 DONA SCREENING COMPLETION WELL ADMISSION DETERMINATION FROM [facility] IN [place] FOR PLACEMENT. CM WAITING INFORMATION ON STATUS OF MEDICAID APPLICATION. Job Boss: Brock Chavez DCP- Discharge Planning Updated by [id number]: Brock Chavez on 04/15/19 5:[address] Patient Name: CHRISTINE NGUYEN Encounter No: [id number] : 1975 Primary Insurance: MEDICARE A & B Anticipated DC Date: Planned Disposition: Usp Facility External Planned Provider: [facility] Discharge Planning Comments: CM RECEIVED REQUEST TO MEET WITH PT AND DAUGHTER IN ROOM. CHRISTINE NGUYEN provided verbal consent to discuss current and ongoing needs with/in the presence of: SIMONE GUTHRIE, . QUESTIONS ANSWERED. PT AND DAUGHTER IN AGREEMENT WITH PLACEMENT AT [facility] AND IF DECLINED, WILL GO TO ANY NURSING FACILITY THAT WILL ACCEPT. PT ASKED THAT HOSPITAL FOLLOW UP ON HER MEDICAID APPLICATION THAT WAS STARTED TWO WEEKS AGO BY THE HOSPITAL. CM WAITING LEVEL 2 DONA SCREENING COMPLETION WELL ADMISSION DETERMINATION FROM [facility] IN [place] FOR PLACEMENT. CM TO FOLLOW UP WITH BUSINESS OFFICE TO CHECK ON STATUS OF MEDICAID APPLICATION. Job Boss: Brock Chavez DCP- Discharge Planning Updated by [id number]: Brock Chavez on 04/14/19 5:[address] Patient Name: CHRISTINE NGUYEN Encounter No: [id number] : 1975 Primary Insurance: MEDICARE A & B Anticipated DC Date: Planned Disposition: Usp Facility External Planned Provider: [facility] Discharge Planning Comments: CM RECEIVED NOTICE THAT PT WILL REQUIRE LEVEL 2 DONA SCREENING. PT CANNOT ADMIT TO ANY LONGTERM IN THE [facility] UNTIL THIS IS DONE. IT MAY TAKE UP TO 9 BUSINESS DAYS TO COMPLETE. CM WAITING LEVEL 2 DONA SCREENING COMPLETION WELL ADMISSION DETERMINATION FROM [facility] IN [place] FOR PLACEMENT. Job Boss: Brock Chavez DCP- Discharge Planning Updated by [id number]: Brock Chavez on 04/14/19 11:[address] Patient Name: CHRISTINE NGUYEN Encounter No: [id number] : 1975 Primary Insurance: MEDICARE A & B Anticipated DC Date: Planned Disposition: Usp Facility External Planned Provider: [facility] Discharge Planning Comments: CM COMPLETED DONA SCREENING FORM, OBTAINED PT AND DOCTORS SIGNATURES. CM FAXED TO [facility] AT [phone] TO REQUEST ASSESSMENT DUE TO DIAGNOSIS OF BIPOLAR. CM WAITING DONA SCREENING COMPLETION WELL ADMISSION DETERMINATION FROM [facility] IN [place] FOR PLACEMENT. Job Boss: Brock Chavez DCP- Discharge Planning Updated by [id number]: Brock Chavez on 04/13/19 4:[address] Patient Name: CHRISTINE NGUYEN Admission Status: ER Accout number: [id number] Admission Date: 04-12-2019 : 1975 Admission Diagnosis: Attending: MICHAEL BUCKLEY Current LOS: 1 Anticipated DC Date: Planned Disposition: Usp Facility Primary Insurance: MEDICARE A & B PLANNED EXTERNAL PROVIDER: [facility] Discharge Planning Comments: CM RECEIVED ORDER FOR "PT HAS NO WHERE TO GO." CM SPOKE TO DERIK BELLA OF [facility], WHO REPORTS HAVING OPEN INVESTIGATION BUT NO APS HOLD ON PATIENT AT THIS TIME. DERIK REPORTS PT HAS PLACEMENT AT [facility] IN [place] AND PROVIDED CONTACT INFORMATION FOR KASHMIR DUMONT, TELEPHONE [phone]. CM CALLED KASHMIR AND LEFT MESSAGE ASKING FOR RETURN CALL. PT IN ROOM TO DISCUSS DISCHARGE PLANNING AND NEEDS. PT REPORTS SHE WAS LIVING AT FRIENDS HOMES WITH HER FIANCE AND NOW HAVE NO PLACE TO LIVE. PT REPORTS NEEDING ASSISTANCE WITH AMBULATION OVER DISTANCES AND HAS A WHEELCHAIR AT A FRIENDS HOUSE AND HER FAMILY HAS HER SHOWER CHAIR. PT HAS NO OTHER MEDICAL EQUIPENT AND NO EQUIPMENT PROVIDER PREFERENCE. PT HAS NO OUTSIDE SERVICES ASSISTING IN THE HOME. PT DOES NOT KNOW HOW ADULT PROTECTIVE SERVICES WAS CALLED BUT SUSPECTS IT WAS A FRIEND OR FAMILY MEMBER TO CALL AND PT REPORTS "THEY HAVE BEEN CALLED LOTS OF TIMES." CM DISCUSSED AVAILABILITY OF HOME HEALTH, REHAB SERVICES AND MEDICAL EQUIPMENT. PT HAS TALKED TO DERIK OF APS AND IS AGREEABLE TO PLACEMENT AT [facility] IN [place]. CHOICE SIGNED. CM FAXED REFERRAL FOR PLACEMENT TO [facility] DUMONT AT [phone]. CM WILL FOLLOW UP WITH CALL SIDDHARTH KASHMIR DUMONT TOMORROW AND CM ANTICIPATES COMPLETING DONA SCREENING SOON POSSIBLE IF IT IS REQUIRED FOR PLACEMENT. Job Boss: Brock Chavez DCPIA - Discharge Planning Initial Assessment Updated by [id number]: Brock Chavez on 04/13/19 5:22 pm * Is the patient Alert and Oriented? Yes * How many steps to enter\\exit or inside your home? NONE * PCP DR. NUR * Pharmacy [facility] * Preadmission Environment Home with Family * ADLs Independent * Equipment Shower Chair Wheelchair * Other Equipment NO MEDICAL EQUIPMENT PROVIDER PREFERENCE * List name and contact numbers for known caregivers / representatives who currently or will assist patient after discharge: BONILLA LEONARD'S SISTER, * Verbal permission to speak to the caregivers and representatives has been obtained from the patient. N/A * Community resources currently utilized None * Please name any agencies selected above. NONE * Additional services required to return to the preadmission environment? Yes * Can the patient safely return to the preadmission environment? Yes * Has this patient been hospitalized within the prior 30 days at any hospital? Yes Coverage Notice Reviewer: [id number] Sukumar Juares Notice Issued Date-Time: 04/13/2019 7:55 Notice Type: Medicare Outpatient Observation Notice Notice Delivered To: Patient Relationship to Patient: Carpet Cleaning Technician Name: Delivery Method: HAND - Hand Delivered Lashonda Days: Prior Verbal Notification: Recipient Understood Notice: Yes Recipient Signature: Yes Med Rec Note Co-signed by Attending: Coverage Notice Comment: PALMER SERVED, EXPLAINED, SIGNED BY PATIENT AND ORIGINAL PROVIDED AND COPY PLACED ON CHART. Reviewer: [id number] - Brock Chavez Notice Issued Date-Time: 04/13/2019 16:20 Notice Type: Patient Choice Letter Notice Delivered To: Patient Relationship to Patient: Carpet Cleaning Technician Name: Delivery Method: HAND - Hand Delivered Lashonda Days: Prior Verbal Notification: Recipient Understood Notice: Yes Recipient Signature: Yes Med Rec Note Co-signed by Attending: Coverage Notice Comment: [facility] Last DP export: 04/18/19 5:10 p Patient Name: CHRISTINE NGUYEN Page 36858 at 1817 All edits/amendments must be made on the electronic document DICTATION DATE: 04/18/191815 CARDIAC TECHNICIAN: KAYODE 04/18/191815 RPT#: [id number] DC DATE: STATUS: ADM IN [facility] [address] [place] [address] END OF REPORT
--- NOTE | 2019-04-18 18:29 | NUR ---
OT NOTE: PT COMPLETED LUE PROM WITH GENTLE PROLONGED STRETCH. HAND ROLLED PLACE IN LUE. PT COMPLETED RUE AROM EXS. PT COMPLETED COMPLETED FACE AND HAND HYGIENE WITH SET UP. PT COMPLETED BED MOB WITH SBA-MIN A. PT EXHIBITED INCREASED DIFFICULTY WHEN ROLLING TO R SIDE LUE HAS DECREASED CARRIER LOADER AND FUNCTION. [id number] THANK YOU,XANDER BENITEZ
[2019-04-18 20:36] VITALS: BP 92/49
--- NOTE | 2019-04-18 21:27 | NUR ---
EVENING ROUNDS COMPLETED. AFVSS, NO S/S OF DISTRESS. PT C/O PAIN IN LEG. TYLENOL GIVEN. FSBS 202 TREATED PER SLIDING SCALE. PT DENIES ANY FURTHER NEEDS AT THIS TIME. WILL CPOC. CL WITHIN REACH.
[2019-04-19 00:28] VITALS: BP 91/54
[2019-04-19 06:30] VITALS: BP 96/59
--- NOTE | 2019-04-19 07:00 | NUR ---
PT RECEIVED AWAKE AND ALERT IN BED. STATES SHE IS HUNGRY. PUREWICK OUT AT MOMENT, DEPENDS IN USE.
[2019-04-19 08:34] VITALS: BP 104/64
--- NOTE | 2019-04-19 08:35 | MORECARE ---
CASE MANAGEMENT DISCHARGE SUMMARY PATIENT: CHRISTINE NGUYEN UNIT: [id number] ADM DATE: 04/13/19 AGE: 43 : [birth year] SEX: F ROOM/BED: D.6931 AUTHOR: ARTIE,DOC PHYSICIAN: REFERRING PHYSICIAN: MICHAEL BUCKLEY DO DATE OF SERVICE: 04/19/19 Discharge Plan Patient Name: CHRISTINE NGUYEN Facility: [facility]:[place] : 1975 Planned Disposition: Shelter Facility Anticipated Discharge Date: Discharge Date: Expected LOS: Initial Reviewer: [id number] Initial Review Date: 04/13/2019 Generated: 04/19/19 9:34 am Comments DCP- Discharge Planning Updated by [id number]: Brock Chavez on 04/18/19 5:[address] Patient Name: CHRISTINE NGUYEN Encounter No: [id number] : 1975 Primary Insurance: MEDICARE A & B Anticipated DC Date: Planned Disposition: Shelter Facility External Planned Provider: [facility] Discharge Planning Comments: CM RECEIVED CALL FROM CRISTAL GODOY OF [employer], SHE WILL MEET WITH PT FOR THE LEVEL 2 DONA SCREENING TODAY. CM PRINTED DOCUMENTS TAMARILU BEE WILL NEED UPON HER ARRIVAL AND WILL PROVIDE THEM TO HER. CM CALLED WYATT [employer] [employer], LEFT DETAILED MESSAGE TO FOLLOW UP ON MEDICAID APPLICATION STATUS THAT PT REPORTS WAS STARTED TWO WEEKS AGO BY THE HOSPITAL. CM RECEIVED CALL FROM YVROSE OF [facility], REQUSTING FAX UPDATE BEFORE NOON TOMORROW FOR COMMITTE REVIEW TOMORROW. CM WAITING LEVEL 2 DONA SCREENING COMPLETION WELL ADMISSION DETERMINATION FROM [facility] IN [place] FOR PLACEMENT. CM WAITING INFORMATION ON STATUS OF MEDICAID APPLICATION. 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 CM SPOKE TO WYATT OF [employer] WHO INFORMED CM THAT PT HAS APPLIED FOR SECONDARY MEDICAID "[id number]" AND THERE IS NO DETERMINATION STATUS OF YET. CM WAITING LEVEL 2 DONA SCREENING COMPLETION WELL ADMISSION DETERMINATION FROM [facility] IN [place] FOR PLACEMENT. CM WAITING INFORMATION ON STATUS OF MEDICAID APPLICATION. Homebirth Midwife: Brock Chavez DCP- Discharge Planning Updated by [id number]: Brock Chavez on 04/15/19 5:[address] Patient Name: CHRISTINE NGUYEN Encounter No: [id number] : 1975 Primary Insurance: MEDICARE A & B Anticipated DC Date: Planned Disposition: Shelter Facility External Planned Provider: [facility] Discharge Planning Comments: CM RECEIVED REQUEST TO MEET WITH PT AND DAUGHTER IN ROOM. CHRISTINE NGUYEN provided verbal consent to discuss current and ongoing needs with/in the presence of: SIMONE GUTHRIE, . QUESTIONS ANSWERED. PT AND DAUGHTER IN AGREEMENT WITH PLACEMENT AT [facility] AND IF DECLINED, WILL GO TO ANY NURSING FACILITY THAT WILL ACCEPT. PT ASKED THAT HOSPITAL FOLLOW UP ON HER MEDICAID APPLICATION THAT WAS STARTED TWO WEEKS AGO BY THE HOSPITAL. CM WAITING LEVEL 2 DONA SCREENING COMPLETION WELL ADMISSION DETERMINATION FROM [facility] IN [place] FOR PLACEMENT. CM TO FOLLOW UP WITH BUSINESS OFFICE TO CHECK ON STATUS OF MEDICAID APPLICATION. Homebirth Midwife: Brock Chavez DCP- Discharge Planning Updated by [id number]: Brock Chavez on 04/14/19 5:[address] Patient Name: CHRISTINE NGUYEN Encounter No: [id number] : 1975 Primary Insurance: MEDICARE A & B Anticipated DC Date: Planned Disposition: Shelter Facility External Planned Provider: [facility] Discharge Planning Comments: CM RECEIVED NOTICE THAT PT WILL REQUIRE LEVEL 2 DONA SCREENING. PT CANNOT ADMIT TO ANY LONGTERM IN THE [facility] UNTIL THIS IS DONE. IT MAY TAKE UP TO 9 BUSINESS DAYS TO COMPLETE. CM WAITING LEVEL 2 DONA SCREENING COMPLETION WELL ADMISSION DETERMINATION FROM [facility] IN [place] FOR PLACEMENT. Homebirth Midwife: Brock Chavez DCP- Discharge Planning Updated by [id number]: Brock Chavez on 04/14/19 11:[address] Patient Name: CHRISTINE NGUYEN Encounter No: [id number] : 1975 Primary Insurance: MEDICARE A & B Anticipated DC Date: Planned Disposition: Shelter Facility External Planned Provider: [facility] Discharge Planning Comments: CM COMPLETED DONA SCREENING FORM, OBTAINED PT AND DOCTORS SIGNATURES. CM FAXED TO [facility] AT [phone] TO REQUEST ASSESSMENT DUE TO DIAGNOSIS OF BIPOLAR. CM WAITING DONA SCREENING COMPLETION WELL ADMISSION DETERMINATION FROM [facility] IN [place] FOR PLACEMENT. Homebirth Midwife: Brock Chavez DCP- Discharge Planning Updated by [id number]: Brock Chavez on 04/13/19 4:[address] Patient Name: CHRISTINE NGUYEN Admission Status: ER Accout number: [id number] Admission Date: 04-12-2019 : 1975 Admission Diagnosis: Attending: MICHAEL BUCKLEY Current LOS: 1 Anticipated DC Date: Planned Disposition: Shelter Facility Primary Insurance: MEDICARE A & B PLANNED EXTERNAL PROVIDER: [facility] Discharge Planning Comments: CM RECEIVED ORDER FOR "PT HAS NO WHERE TO GO." CM SPOKE TO DERIK BELLA OF [facility], WHO REPORTS HAVING OPEN INVESTIGATION BUT NO APS HOLD ON PATIENT AT THIS TIME. DERIK REPORTS PT HAS PLACEMENT AT [facility] IN [place] AND PROVIDED CONTACT INFORMATION FOR [facility] DUMONT, TELEPHONE [phone]. CM CALLED KASHMIR AND LEFT MESSAGE ASKING FOR RETURN CALL. PT IN ROOM TO DISCUSS DISCHARGE PLANNING AND NEEDS. PT REPORTS SHE WAS LIVING AT FRIENDS HOMES WITH HER FIANCE AND NOW HAVE NO PLACE TO LIVE. PT REPORTS NEEDING ASSISTANCE WITH AMBULATION OVER DISTANCES AND HAS A WHEELCHAIR AT A FRIENDS HOUSE AND HER FAMILY HAS HER SHOWER CHAIR. PT HAS NO OTHER MEDICAL EQUIPENT AND NO EQUIPMENT PROVIDER PREFERENCE. PT HAS NO OUTSIDE SERVICES ASSISTING IN THE HOME. PT DOES NOT KNOW HOW [facility]ULT [facility] SERVICES WAS CALLED BUT SUSPECTS IT WAS A FRIEND OR FAMILY MEMBER TO CALL AND PT REPORTS "THEY HAVE BEEN CALLED LOTS OF TIMES." CM DISCUSSED AVAILABILITY OF HOME HEALTH, REHAB SERVICES AND MEDICAL EQUIPMENT. PT HAS TALKED TO DERIK OF APS AND IS AGREEABLE TO PLACEMENT AT [facility] IN [place]. CHOICE SIGNED. CM FAXED REFERRAL FOR PLACEMENT TO [facility] DUMONT AT [phone]. CM WILL FOLLOW UP WITH CALL SIDDHARTH KASHMIR DUMONT TOMORROW AND CM ANTICIPATES COMPLETING DONA SCREENING SOON POSSIBLE IF IT IS REQUIRED FOR PLACEMENT. Homebirth Midwife: Brock Chavez DCPIA - Discharge Planning Initial Assessment Updated by [id number]: Brock Chavez on 04/13/19 5:22 pm * Is the patient Alert and Oriented? Yes * How many steps to enter\\exit or inside your home? NONE * PCP DR. NUR * Pharmacy [facility] * Preadmission Environment Home with Family * ADLs Independent * Equipment Shower Chair Wheelchair * Other Equipment NO MEDICAL EQUIPMENT PROVIDER PREFERENCE * List name and contact numbers for known caregivers / representatives who currently or will assist patient after discharge: BONILLA LEONARD'S SISTER, * Verbal permission to speak to the caregivers and representatives has been obtained from the patient. N/A * Community resources currently utilized None * Please name any agencies selected above. NONE * Additional services required to return to the preadmission environment? Yes * Can the patient safely return to the preadmission environment? Yes * Has this patient been hospitalized within the prior 30 days at any hospital? Yes Coverage Notice Reviewer: [id number] Sukumar Juares Notice Issued Date-Time: 04/13/2019 7:55 Notice Type: Medicare Outpatient Observation Notice Notice Delivered To: Patient Relationship to Patient: It Compliance Analyst Name: Delivery Method: HAND - Hand Delivered Lashonda Days: Prior Verbal Notification: Recipient Understood Notice: Yes Recipient Signature: Yes Med Rec Note Co-signed by Attending: Coverage Notice Comment: PALMER SERVED, EXPLAINED, SIGNED BY PATIENT AND ORIGINAL PROVIDED AND COPY PLACED ON CHART. Reviewer: [id number] - Brock Chavez Notice Issued Date-Time: 04/13/2019 16:20 Notice Type: Patient Choice Letter Notice Delivered To: Patient Relationship to Patient: It Compliance Analyst Name: Delivery Method: HAND - Hand Delivered Lashonda Days: Prior Verbal Notification: Recipient Understood Notice: Yes Recipient Signature: Yes Med Rec Note Co-signed by Attending: Coverage Notice Comment: [facility] Last DP export: 04/18/19 5:17 p Patient Name: CHRISTINE NGUYEN Page [id number] at 0835 All edits/amendments must be made on the electronic document DICTATION DATE: 04/19/19833 ASSISTANT FACILITY MANAGER: KAYODE 04/19/19833 RPT#: [id number] DC DATE: STATUS: ADM IN [facility] [address] [place] [address] END OF REPORT
[2019-04-19 09:24] LABS: CALC OSMOLALITY 278 mosm/kg (275-300); CARBON DIOXIDE 31.6 mmol/L (21.0-32.0); CHLORIDE - SERUM 102 mmol/L (98-107); CREATININE - SERUM 0.8 mg/dL (0.6-1.3); MAGNESIUM - SERUM 1.8 mg/dL (1.8-2.4); POTASSIUM - SERUM 3.6 mmol/L (3.5-5.1); SODIUM 137 mmol/L (136-145); UREA NITROGEN 15 mg/dL (7-18); eGFR NON AFRICAN AMERICAN 82 mL/min (90-120)
[2019-04-19 09:26] LABS: GLUCOSE 175 mg/dL (74-106)
--- NOTE | 2019-04-19 10:14 | NUR ---
PT'S DEPEND CHANGED AND SHE WAS REPOSITIONED FOR COMFORT. DRESSING IN PLACE TO LEFT BUTTOCKS. STATES SHE IS HUNGRY AGAIN, ROQUE CRACKER GIVEN FOR SNACK.
[2019-04-19 11:50] VITALS: BP 88/52
[2019-04-19 16:04] VITALS: BP 99/66
--- NOTE | 2019-04-19 17:11 | NUR ---
OT NOTE: PT COMPLETED SUPINE TO SIT WITH MIN A. PT COMPLETED BED MOB TASKS WITH SBA. PT EXHIBITED INCREASED DIFFICULTY ROLLING TO R SIDE. PT COMPLETED LUE PROM AND PLACED HAND ROLL. PT COMPLETED RU AROM EXS WHILE EOB WITH SBA. TERRELL NOTIFIED NURSING THAT PT REQUIRED PURE WICK REPLACEMENT AND PT STATED SHE NEEDED MEDICATION FOR YEAST. [phone] THANK YOU,XANDER BENITEZ
--- NOTE | 2019-04-19 19:31 | NUR ---
PT IS ALERT AND ASKING FOR FOOD SANDWICH PROVIDED BED LOW AND LOCKED CALL LIGHT WITH PT
[2019-04-19 21:03] VITALS: BP 88/50
[2019-04-20 01:51] VITALS: BP 97/61
--- NOTE | 2019-04-20 02:10 | NUR ---
I have reviewed this patient and I concur with the Shift Assessment completed by the Licensed Practical Nurse today this shift.
[2019-04-20 06:34] VITALS: BP 100/55
--- NOTE | 2019-04-20 08:10 | NUR ---
RESTING IN BED, NO DISTRESS NOTED, SL IN PLACE, CONT TO MONITOR SUGARS, PUREWICK IN PLACE
[2019-04-20 08:33] VITALS: BP 105/64
[2019-04-20 11:37] VITALS: BP 100/65
--- NOTE | 2019-04-20 13:45 | NUR ---
Nutrition Follow-up: Eating well. Drinking Kevin most days; noted pkt on BS table. Diet: Diabetic, Kevin 1x/day PO intake: 75-100% No new wt; last wt: 174# (04/13) Last BM: 04/19 per pt Labs noted: Glu 178 Meds noted: Lantus, Humalog, Protonix -Continue current diet as tolerated. -Need new wt; noted daily wts ordered. -RD following.
[2019-04-20 15:39] VITALS: BP 99/62
--- NOTE | 2019-04-20 15:46 | NUR ---
OT NOTE: ATTEMPTED TO SEE PT IN AM, HOWEVER, PT EATING LUNCH.. WENT BACK IN PM BUT PT REQUESTED TO HOLD SHE HAD NOT SLEPT IN 24 HRS AND SHE WANTED TO REST. CRISTAL HEBERT, OTR/L
[2019-04-20 20:00] VITALS: BP 101/63
--- NOTE | 2019-04-20 20:04 | NUR ---
OT NOTE: PT COMPLETED LUE PROM AND POSITIONING. PT COMPLETED FACE WASH WITH SET UP. PT SITTING UP RIGHT IN BED WITH LEGS CROSSED. [phone] THANK YOU,XANDER BENITEZ
[2019-04-21 04:00] VITALS: BP 110/73
[2019-04-21 08:31] LABS: CALC OSMOLALITY 286 mosm/kg (275-300); CARBON DIOXIDE 33.2 mmol/L (21.0-32.0); CHLORIDE - SERUM 104 mmol/L (98-107); CREATININE - SERUM 0.8 mg/dL (0.6-1.3); GLUCOSE 169 mg/dL (74-106); MAGNESIUM - SERUM 1.5 mg/dL (1.8-2.4); POTASSIUM - SERUM 4.1 mmol/L (3.5-5.1); SODIUM 141 mmol/L (136-145); UREA NITROGEN 17 mg/dL (7-18); eGFR NON AFRICAN AMERICAN 82 mL/min (90-120)
[2019-04-21 10:59] VITALS: BP 111/70
--- NOTE | 2019-04-21 12:41 | MORECARE ---
CASE MANAGEMENT DISCHARGE SUMMARY PATIENT: CHRISTINE NGUYEN UNIT: [id number] ADM DATE: 04/13/19 AGE: 43 : [birth year] SEX: F ROOM/BED: D.8475 AUTHOR: ARTIE,DOC PHYSICIAN: REFERRING PHYSICIAN: MICHAEL BUCKLEY DO DATE OF SERVICE: 04/21/19 Discharge Plan Patient Name: CHRISTINE NGUYEN Facility: [facility]:[place] : 1975 Planned Disposition: Fpc Facility Anticipated Discharge Date: Discharge Date: Expected LOS: Initial Reviewer: [email or web address] Initial Review Date: 04/13/2019 Generated: 04/21/19 1:41 pm Comments DCP- Discharge Planning Updated by [id number]: Sylvia Silva on 04/21/19 11:[address] Patient Name: CHRISTINE NGUYEN Admission Status: ER Accout number: [id number] Admission Date: 04-13-2019 : 1975 Admission Diagnosis: Attending: MICHAEL BUCKLEY Current LOS: 8 Anticipated DC Date: Planned Disposition: Fpc Facility Primary Insurance: MEDICARE A & B Discharge Planning Comments: RECIEVED PHONE CALL FROM PARMJIT AT [facility] AND THEY HAVE DENIED PATIENT PLACEMENT BECAUSE OF NO BED AVAILABLE. AIRANNA DIAZ CM IS WORKING ON OTHER PLACEMENT. Motor Hotel Manager: Sylvia Silva DCP- Discharge Planning Updated by [id number]: Brock Chavez on 04/18/19 5:[address] Patient Name: CHRISTINE NGUYEN Encounter No: [id number] : 1975 Primary Insurance: MEDICARE A & B Anticipated DC Date: Planned Disposition: [facility]pc Facility External [facility] Discharge Planning Comments: CM RECEIVED CALL FROM SYLVIA GODOY OF [employer], SHE WILL MEET WITH PT FOR THE LEVEL 2 DONA SCREENING TODAY. NADIA PRINTED DOCUMENTS TAHT SYLVIA WILL NEED UPON HER ARRIVAL AND WILL PROVIDE THEM TO HER. CM CALLED WYATT OF [employer], LEFT DETAILED MESSAGE TO FOLLOW UP ON MEDICAID APPLICATION STATUS THAT PT REPORTS WAS STARTED TWO WEEKS AGO BY THE HOSPITAL. NADIA RECEIVED CALL FROM YVROSE OF [facility], REQUSTING FAX UPDATE BEFORE NOON TOMORROW FOR COMMITTE REVIEW TOMORROW. CM WAITING LEVEL 2 DONA SCREENING COMPLETION WELL ADMISSION DETERMINATION FROM [facility] IN [place] FOR PLACEMENT. CM WAITING INFORMATION ON STATUS OF MEDICAID APPLICATION. Motor Hotel Manager: Brock Chavez Appended by Brock Chavez on 04/18/2019 18:09 DRYWALL CONTRACTOR: CM FAXED UPDATE TO [facility], . CM SPOKE TO [employer] WHO INFORMED CM THAT PT HAS APPLIED FOR SECONDARY MEDICAID "QMB" AND THERE IS NO DETERMINATION STATUS OF YET. CM WAITING LEVEL 2 DONA SCREENING COMPLETION WELL ADMISSION DETERMINATION FROM [facility] FOR PLACEMENT. CM WAITING INFORMATION ON STATUS OF MEDICAID APPLICATION. Motor Hotel Manager: Brock Chavez DCP- Discharge Planning Updated by [id number]: Brock Chavez on 04/15/19 5:[address] Patient Name: CHRISTINE NGUYEN Encounter No: [id number] : 1975 Primary Insurance: MEDICARE A & B Anticipated DC Date: Planned Disposition: Fpc Facility External Planned Provider: [facility] Discharge Planning Comments: CM RECEIVED REQUEST TO MEET WITH PT AND DAUGHTER IN ROOM. CHRISTINE NGUYEN provided verbal consent to discuss current and ongoing needs with/in the presence of: SIMONE GUTHRIE, . QUESTIONS ANSWERED. PT AND DAUGHTER IN AGREEMENT WITH PLACEMENT AT [facility] AND IF DECLINED, WILL GO TO ANY NURSING FACILITY THAT WILL ACCEPT. PT ASKED THAT HOSPITAL FOLLOW UP ON HER MEDICAID APPLICATION THAT WAS STARTED TWO WEEKS AGO BY THE HOSPITAL. CM WAITING LEVEL 2 DONA SCREENING COMPLETION WELL ADMISSION DETERMINATION FROM [facility] IN [place] FOR PLACEMENT. CM TO FOLLOW UP WITH BUSINESS OFFICE TO CHECK ON STATUS OF MEDICAID APPLICATION. Motor Hotel Manager: Brock Chavez DCP- Discharge Planning Updated by [id number]: Brock Chavez on 04/14/19 5:[address] Patient Name: CHRISTINE NGUYEN Encounter No: [id number] : 1975 Primary Insurance: MEDICARE A & B Anticipated DC Date: Planned Disposition: Fpc Facility External Planned Provider: [facility] Discharge Planning Comments: CM RECEIVED NOTICE THAT PT WILL REQUIRE LEVEL 2 DONA SCREENING. PT CANNOT ADMIT TO ANY CUSTODIAL IN THE [facility] UNTIL THIS IS DONE. IT MAY TAKE UP TO 9 BUSINESS DAYS TO COMPLETE. CM WAITING LEVEL 2 DONA SCREENING COMPLETION WELL ADMISSION DETERMINATION FROM [facility] IN [place] FOR PLACEMENT. Motor Hotel Manager: Brock Chavez DCP- Discharge Planning Updated by [id number]: Brock Chavez on 04/14/19 11:[address] Patient Name: CHRISTINE NGUYEN Encounter No: [id number] : 1975 Primary Insurance: MEDICARE A & B Anticipated DC Date: Planned Disposition: Fpc Facility External Planned Provider: [facility] Discharge Planning Comments: CM COMPLETED DONA SCREENING FORM, OBTAINED PT AND DOCTORS SIGNATURES. CM FAXED TO [employer] AT [phone] TO REQUEST ASSESSMENT DUE TO DIAGNOSIS OF BIPOLAR. CM WAITING DONA SCREENING COMPLETION WELL ADMISSION DETERMINATION FROM [facility] IN [place] FOR PLACEMENT. Motor Hotel Manager: Brock Chavez DCP- Discharge Planning Updated by [id number]: Brock Chavez on 04/13/19 4:[address] Patient Name: CHRISTINE NGUYEN Admission Status: ER Accout number: [id number] Admission Date: 04-12-2019 : 1975 Admission Diagnosis: Attending: MICHAEL BUCKLEY Current LOS: 1 Anticipated DC Date: Planned Disposition: Fpc Facility Primary Insurance: MEDICARE A & B PLANNED EXTERNAL PROVIDER: [facility] Discharge Planning Comments: CM RECEIVED ORDER FOR "PT HAS NO WHERE TO GO." CM SPOKE TO DERIK BELLA OF [facility], WHO REPORTS HAVING OPEN INVESTIGATION BUT NO APS HOLD ON PATIENT AT THIS TIME. DERIK REPORTS PT HAS PLACEMENT AT [facility] IN [place] AND PROVIDED CONTACT INFORMATION FOR [facility] D[facility], TELEPHONE [phone]. CM CALLED KASHMIR AND LEFT MESSAGE ASKING FOR RETURN CALL. PT IN ROOM TO DISCUSS DISCHARGE PLANNING AND NEEDS. PT REPORTS SHE WAS LIVING AT FRIENDS HOMES WITH HER FIANCE AND NOW HAVE NO PLACE TO LIVE. PT REPORTS NEEDING ASSISTANCE WITH AMBULATION OVER DISTANCES AND HAS A WHEELCHAIR AT A FRIENDS HOUSE AND HER FAMILY HAS HER SHOWER CHAIR. PT HAS NO OTHER MEDICAL EQUIPENT AND NO EQUIPMENT PROVIDER PREFERENCE. PT HAS NO OUTSIDE SERVICES ASSISTING IN THE HOME. PT DOES NOT KNOW HOW ADULT PROT[facility] SERVICES WAS CALLED BUT SUSPECTS IT WAS A FRIEND OR FAMILY MEMBER TO CALL AND PT REPORTS "THEY HAVE BEEN CALLED LOTS OF TIMES." CM DISCUSSED AVAILABILITY OF HOME HEALTH, REHAB SERVICES AND MEDICAL EQUIPMENT. PT HAS TALKED TO DERIK [facility] AND IS AGREEABLE TO PLACEMENT AT [facility] IN [place]. CHOICE SIGNED. CM FAXED REFERRAL FOR PLACEMENT TO [facility]MIR DUMONT AT [phone]. CM WILL FOLLOW UP WITH CALL SIDDHARTH KASHMIR DUMONT TOMORROW AND CM ANTICIPATES COMPLETING DONA SCREENING SOON POSSIBLE IF IT IS REQUIRED FOR PLACEMENT. Motor Hotel Manager: Brock Chavez DCPIA - Discharge Planning Initial Assessment Updated by [id number]: Brock Chavez on 04/13/19 5:22 pm * Is the patient Alert and Oriented? Yes * How many steps to enter\\exit or inside your home? NONE * PCP DR. NUR * Pharmacy [facility] * Preadmission Environment Home with Family * ADLs Independent * Equipment Shower Chair Wheelchair * Other Equipment NO MEDICAL EQUIPMENT PROVIDER PREFERENCE * List name and contact numbers for known caregivers / representatives who currently or will assist patient after discharge: BONILLA LEONARD'S SISTER, * Verbal permission to speak to the caregivers and representatives has been obtained from the patient. N/A * Community resources currently utilized None * Please name any agencies selected above. NONE * Additional services required to return to the preadmission environment? Yes * Can the patient safely return to the preadmission environment? Yes * Has this patient been hospitalized within the prior 30 days at any hospital? Yes Coverage Notice Reviewer: [id number] Sukumar Juares Notice Issued Date-Time: 04/13/2019 7:55 Notice Type: Medicare Outpatient Observation Notice Notice Delivered To: Patient Relationship to Patient: Skiving Machine Operator Name: Delivery Method: HAND - Hand Delivered Lashonda Days: Prior Verbal Notification: Recipient Understood Notice: Yes Recipient Signature: Yes Med Rec Note Co-signed by Attending: Coverage Notice Comment: PALMER SERVED, EXPLAINED, SIGNED BY PATIENT AND ORIGINAL PROVIDED AND COPY PLACED ON CHART. Reviewer: [id number] - Brock Chavez Notice Issued Date-Time: 04/13/2019 16:20 Notice Type: Patient Choice Letter Notice Delivered To: Patient Relationship to Patient: Skiving Machine Operator Name: Delivery Method: HAND - Hand Delivered Lashonda Days: Prior Verbal Notification: Recipient Understood Notice: Yes Recipient Signature: Yes Med Rec Note Co-signed by Attending: Coverage Notice Comment: [facility] Last DP export: 04/19/19 7:35 a Patient Name: CHRISTINE NGUYEN Page [id number] at 1241 All edits/amendments must be made on the electronic document DICTATION DATE: 04/21/19 1241 HEAD BANQUET WAITER/WAITRESS: KAYODE 04/21/19 1241 RPT#: [id number] DC DATE: STATUS: ADM IN [facility] [address] [place] [address] END OF REPORT
--- NOTE | 2019-04-21 12:52 | MORECARE ---
CASE MANAGEMENT DISCHARGE SUMMARY PATIENT: CHRISTINE NGUYEN UNIT: [id number] ADM DATE: 04/13/19 AGE: 43 : [birth year] SEX: F ROOM/BED: D.7606 AUTHOR: ABBEY ALVA PHYSICIAN: REFERRING PHYSICIAN: MICHAEL BUCKLEY DO DATE OF SERVICE: 04/21/19 Discharge Plan Patient Name: CHRISTINE NGUYEN Facility: [facility]:[place] : 1975 Planned Disposition: Senior Living Facility Anticipated Discharge Date: Discharge Date: Expected LOS: Initial Reviewer: [id number] Initial Review Date: 04/13/2019 Generated: 04/21/19 1:52 pm Comments DCP- Discharge Planning Updated by [id number]: Chey Moreno on 04/21/19 11:[address] TELEPHONE CALL TO [employer], SPOKE Manny MORALES. SHE STATES [facility] SHOULD BE RECEIVING A LETTER THIS AFTERNOON REGARDING SECOND LEVEL DECISION. TELEPHONE CALL TO [employer]. SPOKE Manny PINEDA. APPLICATION HAS BEEN SUBMITTED. APPEARS SHE WILL QUALIFY FOR B MEDICAID WHICH MAY ACTIVATE April. DCP- Discharge Planning Updated by [id number]: Sylvia Silva on 04/21/19 11:[address] Patient Name: CHRISTINE NGUYEN Admission Status: ER Accout number: [id number] Admission Date: 04-13-2019 : 1975 Admission Diagnosis: Attending: MICHAEL BUCKLEY Current LOS: 8 Anticipated DC Date: Planned Disposition: Senior Living Facility Primary Insurance: MEDICARE A & B Discharge Planning Comments: RECIEVED PHONE CALL FROM PARMJIT AT [facility] AND THEY HAVE DENIED PATIENT PLACEMENT BECAUSE OF NO BED AVAILABLE. ARIANNA DIAZ CM IS WORKING ON OTHER PLACEMENT. Medicare Compliance Auditor: Sylvia Silva DCP- Discharge Planning Updated by [id number]: Brock Chavez on 04/18/19 5:[address] Patient Name: CHRISTINE NGUYEN Encounter No: [id number] : 1975 Primary Insurance: MEDICARE A & B Anticipated DC Date: Planned Disposition: Senior Living Facility External [facility] Discharge Planning Comments: CM RECEIVED CALL FROM SYLVIA GODOY OF [employer], SHE WILL MEET WITH PT FOR THE LEVEL 2 DONA SCREENING TODAY. CM PRINTED DOCUMENTS JUANY BEE WILL NEED UPON HER ARRIVAL AND WILL PROVIDE THEM TO HER. CM CALLED WYATT OF [employer], LEFT DETAILED MESSAGE TO FOLLOW UP ON MEDICAID APPLICATION STATUS THAT PT REPORTS WAS STARTED TWO WEEKS AGO BY THE HOSPITAL. CM RECEIVED CALL FROM YVROSE OF [facility], REQUSTING FAX UPDATE BEFORE NOON TOMORROW FOR COMMITTE REVIEW TOMORROW. CM WAITING LEVEL 2 DONA SCREENING COMPLETION WELL ADMISSION DETERMINATION FROM [facility] IN [place] FOR PLACEMENT. CM WAITING INFORMATION ON STATUS OF MEDICAID APPLICATION. Medicare Compliance Auditor: Brock Chavez Appended by rBock Chavez on 04/18/2019 18:09 CAREER COORDINATOR: CM FAXED UPDATE TO [facility], . CM SPOKE TO WYATT OF [employer] WHO INFORMED CM THAT PT HAS APPLIED FOR SECONDARY MEDICAID "QMB" AND THERE IS NO DETERMINATION STATUS OF YET. CM WAITING LEVEL 2 DONA SCREENING COMPLETION WELL ADMISSION DETERMINATION FROM [facility] IN [place] FOR PLACEMENT. CM WAITING INFORMATION ON STATUS OF MEDICAID APPLICATION. Medicare Compliance Auditor: Brock Chavez DCP- Discharge Planning Updated by [id number]: Brock Chavez on 04/15/19 5:[address] Patient Name: CHRISTINE NGUYEN Encounter No: [id number] : 1975 Primary Insurance: MEDICARE A & B Anticipated DC Date: Planned Disposition: Senior Living Facility External Planned Provider: [facility] Discharge Planning Comments: CM RECEIVED REQUEST TO MEET WITH PT AND DAUGHTER IN ROOM. CHRISTINE NGUYEN provided verbal consent to discuss current and ongoing needs with/in the presence of: SIMONE GUTHRIE, . QUESTIONS ANSWERED. PT AND DAUGHTER IN AGREEMENT WITH PLACEMENT AT [facility] AND IF DECLINED, WILL GO TO ANY NURSING FACILITY THAT WILL ACCEPT. PT ASKED THAT HOSPITAL FOLLOW UP ON HER MEDICAID APPLICATION THAT WAS STARTED TWO WEEKS AGO BY THE HOSPITAL. CM WAITING LEVEL 2 DONA SCREENING COMPLETION WELL ADMISSION DETERMINATION FROM [facility] IN [place] FOR PLACEMENT. CM TO FOLLOW UP WITH BUSINESS OFFICE TO CHECK ON STATUS OF MEDICAID APPLICATION. Medicare Compliance Auditor: Brock Chavez DCP- Discharge Planning Updated by [id number]: Brock Chavez on 04/14/19 5:[address] Patient Name: CHRISTINE NGUYEN Encounter No: [id number] : 1975 Primary Insurance: MEDICARE A & B Anticipated DC Date: Planned Disposition: Senior Living Facility External Planned Provider: [facility] Discharge Planning Comments: CM RECEIVED NOTICE THAT PT WILL REQUIRE LEVEL 2 DONA SCREENING. PT CANNOT ADMIT TO ANY ASSISTED IN THE [facility] UNTIL THIS IS DONE. IT MAY TAKE UP TO 9 BUSINESS DAYS TO COMPLETE. CM WAITING LEVEL 2 DONA SCREENING COMPLETION WELL ADMISSION DETERMINATION FROM [facility] IN [place] FOR PLACEMENT. Medicare Compliance Auditor: Brock Chavez DCP- Discharge Planning Updated by [id number]: Brock Chavez on 04/14/19 11:[address] Patient Name: CHRISTINE NGUYEN Encounter No: [id number] : 1975 Primary Insurance: MEDICARE A & B Anticipated DC Date: Planned Disposition: Senior Living Facility External Planned Provider: [facility] Discharge Planning Comments: CM COMPLETED DONA SCREENING FORM, OBTAINED PT AND DOCTORS SIGNATURES. CM FAXED TO [employer] AT [phone] TO REQUEST ASSESSMENT DUE TO DIAGNOSIS OF BIPOLAR. CM WAITING DONA SCREENING COMPLETION WELL ADMISSION DETERMINATION FROM [facility] IN [place] FOR PLACEMENT. Medicare Compliance Auditor: Brock Chavez DCP- Discharge Planning Updated by [id number]: Brock Chavez on 04/13/19 4:[address] Patient Name: CHRISTINE NGUYEN Admission Status: ER Accout number: [id number] Admission Date: 04-12-2019 : 1975 Admission Diagnosis: Attending: MICHAEL BUCKLEY Current LOS: 1 Anticipated DC Date: Planned Disposition: Senior Living Facility Primary Insurance: MEDICARE A & B PLANNED EXTERNAL PROVIDER: [facility] Discharge Planning Comments: CM RECEIVED ORDER FOR "PT HAS NO WHERE TO GO." CM SPOKE TO DERIK BELLA OF [facility] [employer] [employer], WHO REPORTS HAVING OPEN INVESTIGATION BUT NO APS HOLD ON PATIENT AT THIS TIME. DERIK REPORTS PT HAS PLACEMENT AT [facility] IN [place] AND PROVIDED CONTACT INFORMATION FOR KASHM[facility] DUMONT, TELEPHONE [phone]. CM CALLED KASHMIR AND LEFT MESSAGE ASKING FOR RETURN CALL. PT IN ROOM TO DISCUSS DISCHARGE PLANNING AND NEEDS. PT REPORTS SHE WAS LIVING AT FRIENDS HOMES WITH HER FIANCE AND NOW HAVE NO PLACE TO LIVE. PT REPORTS NEEDING ASSISTANCE WITH AMBULATION OVER DISTANCES AND HAS A WHEELCHAIR AT A FRIENDS HOUSE AND HER FAMILY HAS HER SHOWER CHAIR. PT HAS NO OTHER MEDICAL EQUIPENT AND NO EQUIPMENT PROVIDER PREFERENCE. PT HAS NO OUTSIDE SERVICES ASSISTING IN THE HOME. PT DOES NOT KNOW HOW ADULT PROTECTIVE SERVICES WAS CALLED BUT SUSPECTS IT WAS A FRIEND OR FAMILY MEMBER TO CALL AND PT REPORTS "THEY HAVE BEEN CALLED LOTS OF TIMES." CM DISCUSSED AVAILABILITY OF HOME HEALTH, REHAB SERVICES AND MEDICAL EQUIPMENT. PT HAS TALKED TO DERIK OF [facility] AND IS AGREEABLE TO PLACEMENT AT [facility] IN [place]. CHOICE SIGNED. CM FAXED REFERRAL FOR PLACEMENT TO KASHMIR DUMONT AT [phone]. CM WILL FOLLOW UP WITH CALL SIDDHARTH KASHMIR DUMONT TOMORROW AND CM ANTICIPATES COMPLETING DONA SCREENING SOON POSSIBLE IF IT IS REQUIRED FOR PLACEMENT. Medicare Compliance Auditor: Brock Chavez DCPIA - Discharge Planning Initial Assessment Updated by [id number]: Brock Chavez on 04/13/19 5:22 pm * Is the patient Alert and Oriented? Yes * How many steps to enter\\exit or inside your home? NONE * PCP DR. NUR * Pharmacy [facility] * Preadmission Environment Home with Family * ADLs Independent * Equipment Shower Chair Wheelchair * Other Equipment NO MEDICAL EQUIPMENT PROVIDER PREFERENCE * List name and contact numbers for known caregivers / representatives who currently or will assist patient after discharge: BONILLA LEONARD'S SISTER, * Verbal permission to speak to the caregivers and representatives has been obtained from the patient. N/A * Community resources currently utilized None * Please name any agencies selected above. NONE * Additional services required to return to the preadmission environment? Yes * Can the patient safely return to the preadmission environment? Yes * Has this patient been hospitalized within the prior 30 days at any hospital? Yes Coverage Notice Reviewer: [id number] Sukumar Juares Notice Issued Date-Time: 04/13/2019 7:55 Notice Type: Medicare Outpatient Observation Notice Notice Delivered To: Patient Relationship to Patient: Three Dimensional Art Instructor Name: Delivery Method: HAND - Hand Delivered Lashonda Days: Prior Verbal Notification: Recipient Understood Notice: Yes Recipient Signature: Yes Med Rec Note Co-signed by Attending: Coverage Notice Comment: SPENCER SERVED, EXPLAINED, SIGNED BY PATIENT AND ORIGINAL PROVIDED AND COPY PLACED ON CHART. Reviewer: [id number] - Brock Chavez Notice Issued Date-Time: 04/13/2019 16:20 Notice Type: Patient Choice Letter Notice Delivered To: Patient Relationship to Patient: Three Dimensional Art Instructor Name: Delivery Method: HAND - Hand Delivered Lashonda Days: Prior Verbal Notification: Recipient Understood Notice: Yes Recipient Signature: Yes Med Rec Note Co-signed by Attending: Coverage Notice Comment: [facility] Last DP export: 04/21/19 11:41 a Patient Name: CHRISTINE NGUYEN Page [id number] at 1252 All edits/amendments must be made on the electronic document DICTATION DATE: 04/21/19 1252 RESCUE INSTRUCTOR: KAYODE 04/21/19 1252 RPT#: [id number] DC DATE: STATUS: ADM IN [facility] [address] [place] [address] END OF REPORT
[2019-04-21 13:52] VITALS: BP 104/63
--- NOTE | 2019-04-21 15:39 | MORECARE ---
CASE MANAGEMENT DISCHARGE SUMMARY PATIENT: CHRISTINE NGUYEN UNIT: [id number] ADM DATE: 04/13/19 AGE: 43 : [birth year] SEX: F ROOM/BED: D.4713 AUTHOR: ABBEY ALVA PHYSICIAN: REFERRING PHYSICIAN: MICHAEL BUCKLEY DO DATE OF SERVICE: 04/21/19 Discharge Plan Patient Name: CHRISTINE NGUYEN Facility: [facility]:[place] : 1975 Planned Disposition: Detention Facility Anticipated Discharge Date: Discharge Date: Expected LOS: Initial Reviewer: [id number] Initial Review Date: 04/13/2019 Generated: 04/21/19 4:38 pm DCP- Discharge Planning Updated by [id number]: Chey Moreno on 04/21/19 2:[address] 1535 TELEPHONE CALL TO ERUM HERNANDEZ, LOG DECK TENDER, TO ASCERTAIN IF LEVEL II DONA DECISION HAD BEEN FORWARDED VIA FAX. NO NOTIFICATION AT THIS TIME. DCP- Discharge Planning Updated by [id number]: Chey Moreno on 04/21/19 11:[address] TELEPHONE CALL TO [employer], SPOKE Manny MORALES. SHE STATES [facility] SHOULD BE RECEIVING A LETTER THIS AFTERNOON REGARDING SECOND LEVEL DECISION. TELEPHONE CALL TO [employer]. SPOKE Manny PINEDA. APPLICATION HAS BEEN SUBMITTED. APPEARS SHE WILL QUALIFY FOR B MEDICAID WHICH MAY ACTIVATE April. DCP- Discharge Planning Updated by [id number]: Sylvia Silva on 04/21/19 11:[address] Patient Name: CHRISTINE NGUYEN Admission Status: ER Accout number: [id number] Admission Date: 04-13-2019 : 1975 Admission Diagnosis: Attending: MICHAEL BUCKLEY Current LOS: 8 Anticipated DC Date: Planned Disposition: Detention Facility Primary Insurance: MEDICARE A & B Discharge Planning Comments: RECIEVED PHONE CALL FROM PARMJIT AT [facility] AND THEY HAVE DENIED PATIENT PLACEMENT BECAUSE OF NO BED AVAILABLE. ARIANNA DIAZ CM IS WORKING ON OTHER PLACEMENT. Biometric Screener: Sylvia Silva DCP- Discharge Planning Updated by [id number]: Brock Chavez on 04/18/19 5:[address] Patient Name: CHRISTINE NGUYEN Encounter No: [id number] : 1975 Primary Insurance: MEDICARE A & B Anticipated DC Date: Planned Disposition: Detention Facility External Planned Provider: [facility] Discharge Planning Comments: CM RECEIVED CALL FROM SYLVIA GODOY OF [employer] [facility], SHE WILL MEET WITH PT FOR THE LEVEL 2 DONA SCREENING TODAY. CM PRINTED DOCUMENTS TAHT SYLVIA WILL NEED UPON HER ARRIVAL AND WILL PROVIDE THEM TO HER. CM CALLED WYATT OF [employer], LEFT DETAILED MESSAGE TO FOLLOW UP ON MEDICAID APPLICATION STATUS THAT PT REPORTS WAS STARTED TWO WEEKS AGO BY THE HOSPITAL. CM RECEIVED CALL FROM YVROSE OF [facility], REQUSTING FAX UPDATE BEFORE NOON TOMORROW FOR COMMITTE REVIEW TOMORROW. CM WAITING LEVEL 2 DONA SCREENING COMPLETION WELL ADMISSION DETERMINATION FROM [facility] IN [place] FOR PLACEMENT. CM WAITING INFORMATION ON STATUS OF MEDICAID APPLICATION. Biometric Screener: Brock Chavez Appended by Brock Chavez on 04/18/2019 18:09 NURSERY NURSE: CM FAXED UPDATE TO [facility], . CM SPOKE TO WYATT OF [employer] WHO INFORMED CM THAT PT HAS APPLIED FOR SECONDARY MEDICAID "QMB" AND THERE IS NO DETERMINATION STATUS OF YET. CM WAITING LEVEL 2 DONA SCREENING COMPLETION WELL ADMISSION DETERMINATION FROM [facility] IN [place] FOR PLACEMENT. CM WAITING INFORMATION ON STATUS OF MEDICAID APPLICATION. Biometric Screener: Brock Chavez DCP- Discharge Planning Updated by [id number]: Brock Chavez on 04/15/19 5:[address] Patient Name: CHRISTINE NGUYEN Encounter No: [id number] : 1975 Primary Insurance: MEDICARE A & B Anticipated DC Date: Planned Disposition: Detention Facility External Planned Provider: [facility] Discharge Planning Comments: CM RECEIVED REQUEST TO MEET WITH PT AND DAUGHTER IN ROOM. CHRISTINE NGYUEN provided verbal consent to discuss current and ongoing needs with/in the presence of: SIMONE GUTHRIE, . QUESTIONS ANSWERED. PT AND DAUGHTER IN AGREEMENT WITH PLACEMENT AT [facility] AND IF DECLINED, WILL GO TO ANY NURSING FACILITY THAT WILL ACCEPT. PT ASKED THAT HOSPITAL FOLLOW UP ON HER MEDICAID APPLICATION THAT WAS STARTED TWO WEEKS AGO BY THE HOSPITAL. CM WAITING LEVEL 2 DONA SCREENING COMPLETION WELL ADMISSION DETERMINATION FROM [facility] IN [place] FOR PLACEMENT. CM TO FOLLOW UP WITH BUSINESS OFFICE TO CHECK ON STATUS OF MEDICAID APPLICATION. Biometric Screener: Brock Chavez DCP- Discharge Planning Updated by [id number]: Brock Chavez on 04/14/19 5:[address] Patient Name: CHRISTINE NGUYEN Encounter No: [id number] : 1975 Primary Insurance: MEDICARE A & B Anticipated DC Date: Planned Disposition: Detention Facility External Planned Provider: [facility] Discharge Planning Comments: CM RECEIVED NOTICE THAT PT WILL REQUIRE LEVEL 2 DONA SCREENING. PT CANNOT ADMIT TO ANY SNF IN THE [facility] UNTIL THIS IS DONE. IT MAY TAKE UP TO 9 BUSINESS DAYS TO COMPLETE. CM WAITING LEVEL 2 DONA SCREENING COMPLETION WELL ADMISSION DETERMINATION FROM [facility] IN [place] FOR PLACEMENT. Biometric Screener: Brock Chavez DCP- Discharge Planning Updated by [id number]: Brock Chavez on 04/14/19 11:[address] Patient Name: CHRISTINE NGUYEN Encounter No: [id number] : 1975 Primary Insurance: MEDICARE A & B Anticipated DC Date: Planned Disposition: Detention Facility External Planned Provider: [facility] Discharge Planning Comments: CM COMPLETED DONA SCREENING FORM, OBTAINED PT AND DOCTORS SIGNATURES. CM FAXED TO [employer] AT [phone] TO REQUEST ASSESSMENT DUE TO DIAGNOSIS OF BIPOLAR. CM WAITING DONA SCREENING COMPLETION WELL ADMISSION DETERMINATION FROM [facility] IN [place] FOR PLACEMENT. Biometric Screener: Brock Chavez DCP- Discharge Planning Updated by [id number]: Brock Chavez on 04/13/19 4:[address] Patient Name: CHRISTINE NGUYEN Admission Status: ER Accout number: [id number] Admission Date: 04-12-2019 : 1975 Admission Diagnosis: Attending: MICHAEL BUCKLEY Current LOS: 1 Anticipated DC Date: Planned Disposition: Detention Facility Primary Insurance: MEDICARE A & B PLANNED EXTERNAL PROVIDER: [facility] Discharge Planning Comments: CM RECEIVED ORDER FOR "PT HAS NO WHERE TO GO." CM SPOKE TO DERIK BELLA OF [facility], WHO REPORTS HAVING OPEN INVESTIGATION BUT NO APS HOLD ON PATIENT AT THIS TIME. DERIK REPORTS PT HAS PLACEMENT AT [facility] IN [place] AND PROVIDED CONTACT INFORMATION FOR KASHM[facility] DUMONT, TELEPHONE [phone]. CM CALLED KASHMIR AND LEFT MESSAGE ASKING FOR RETURN CALL. PT IN ROOM TO DISCUSS DISCHARGE PLANNING AND NEEDS. PT REPORTS SHE WAS LIVING AT FRIENDS HOMES WITH HER FIANCE AND NOW HAVE NO PLACE TO LIVE. PT REPORTS NEEDING ASSISTANCE WITH AMBULATION OVER DISTANCES AND HAS A WHEELCHAIR AT A FRIENDS HOUSE AND HER FAMILY HAS HER SHOWER CHAIR. PT HAS NO OTHER MEDICAL EQUIPENT AND NO EQUIPMENT PROVIDER PREFERENCE. PT HAS NO OUTSIDE SERVICES ASSISTING IN THE HOME. PT DOES NOT KNOW HOW ADULT PROTECTIVE SERVICES WAS CALLED BUT SUSPECTS IT WAS A FRIEND OR FAMILY MEMBER TO CALL AND PT REPORTS "THEY HAVE BEEN CALLED LOTS OF TIMES." CM DISCUSSED AVAILABILITY OF HOME HEALTH, REHAB SERVICES AND MEDICAL EQUIPMENT. PT HAS TALKED TO DERIK OF [facility] AND IS AGREEABLE TO PLACEMENT AT [facility] IN [place]. CHOICE SIGNED. CM FAXED REFERRAL FOR PLACEMENT TO [facility]ASHMIR DUMONT AT [phone]. CM WILL FOLLOW UP WITH CALL SIDDHARTH KASHMIR DUMONT TOMORROW AND CM ANTICIPATES COMPLETING DONA SCREENING SOON POSSIBLE IF IT IS REQUIRED FOR PLACEMENT. Biometric Screener: Brock Chavez DCPIA - Discharge Planning Initial Assessment Updated by [id number]: Brock Chavez on 04/13/19 5:22 pm * Is the patient Alert and Oriented? Yes * How many steps to enter\\exit or inside your home? NONE * PCP DR. NUR * Pharmacy [facility] * Preadmission Environment Home with Family * ADLs Independent * Equipment Shower Chair Wheelchair * Other Equipment NO MEDICAL EQUIPMENT PROVIDER PREFERENCE * List name and contact numbers for known caregivers / representatives who currently or will assist patient after discharge: BONILLA LEONARD'S SISTER, * Verbal permission to speak to the caregivers and representatives has been obtained from the patient. N/A * Community resources currently utilized None * Please name any agencies selected above. NONE * Additional services required to return to the preadmission environment? Yes * Can the patient safely return to the preadmission environment? Yes * Has this patient been hospitalized within the prior 30 days at any hospital? Yes Coverage Notice Reviewer: [id number] - Erum Edds Notice Issued Date-Time: 04/13/2019 7:55 Notice Type: Medicare Outpatient Observation Notice Notice Delivered To: Patient Relationship to Patient: Lead Relay Tester Name: Delivery Method: HAND - Hand Delivered Lashonda Days: Prior Verbal Notification: Recipient Understood Notice: Yes Recipient Signature: Yes Med Rec Note Co-signed by Attending: Coverage Notice Comment: PALMER SERVED, EXPLAINED, SIGNED BY PATIENT AND ORIGINAL PROVIDED AND COPY PLACED ON CHART. Reviewer: [id number] - Brock Chavez Notice Issued Date-Time: 04/13/2019 16:20 Notice Type: Patient Choice Letter Notice Delivered To: Patient Relationship to Patient: Lead Relay Tester Name: Delivery Method: HAND - Hand Delivered Lashonda Days: Prior Verbal Notification: Recipient Understood Notice: Yes Recipient Signature: Yes Med Rec Note Co-signed by Attending: Coverage Notice Comment: [facility] Last DP export: 04/21/19 11:52 a Patient Name: CHRISTINE NGUYEN Page [id number] at 1539 All edits/amendments must be made on the electronic document DICTATION DATE: 04/21/19 1538 HAT BAND ATTACHER: KAYODE 04/21/19 1538 RPT#: [id number] DC DATE: STATUS: ADM IN [facility] [address] [place] [address] END OF REPORT
--- NOTE | 2019-04-21 15:58 | MORECARE ---
CASE MANAGEMENT DISCHARGE SUMMARY PATIENT: CHRISTINE NGUYEN UNIT: [id number] ADM DATE: 04/13/19 AGE: 43 : [birth year] SEX: F ROOM/BED: D.2101 AUTHOR: ARTIE,DOC PHYSICIAN: REFERRING PHYSICIAN: MICHAEL BUCKLEY DO DATE OF SERVICE: 04/21/19 Discharge Plan Patient Name: CHRISTINE NGUYEN Facility: [facility]:[place] : 1975 Planned Disposition: Usp Facility Anticipated Discharge Date: Discharge Date: Expected LOS: Initial Reviewer: [id number] Initial Review Date: 04/13/2019 Generated: 04/21/19 4:57 pm DCP- Discharge Planning Updated by [id number]: Chey Moreno on 04/21/19 2:[address] CM UPDATED THE PATIENT VIA TELEPHONE OF PENDING [place] ASSESSMENT AND [facility] DENIAL SECONDARY TO NO BEDS. SHE STATES SHE IS LOOKING FOR AN APARTMENT IN [place]. CM ADVISED SEARCH FOR SKILLED FACILITY MUST PROCEED. SHE STATES WE CAN SEARCH IN [place] ,[place] OR IN BETWEEN. DERIK MEJIA FROM [employer] [employer] [employer] IS FOLLOWING THIS PATIENT. NADIA MESSINA, HAS BEEN IN COMMUNICATION WITH HIM. NADIA CALLED [phone]. LEFT MESSAGE REQUESTING CALL BACK FOR ASSISTANCE WITH PLACEMENT. DCP- Discharge Planning Updated by [id number]: Chey Moreno on 04/21/19 2:[address] 1534 TELEPHONE CALL TO DARLYN HERNANDEZ, EXERCISE MANAGER, TO ASCERTAIN IF LEVEL II DONA DECISION HAD BEEN FORWARDED VIA FAX. NO NOTIFICATION AT THIS TIME. DCP- Discharge Planning Updated by [id number]: Chey Moreno on 04/21/19 11:[address] TELEPHONE CALL TO [employer], SPOKE French/ CARMEN. SHE STATES [facility] SHOULD BE RECEIVING A LETTER THIS AFTERNOON REGARDING SECOND LEVEL DECISION. TELEPHONE CALL TO [employer]. SPOKE French/ EDWIN. APPLICATION HAS BEEN SUBMITTED. APPEARS SHE WILL QUALIFY FOR B MEDICAID WHICH MAY ACTIVATE April. DCP- Discharge Planning Updated by [id number]: Sylvia Silva on 04/21/19 11:[address] Patient Name: CHRISTINE NGUYEN Admission Status: ER Accout number: [id number] Admission Date: 04-13-2019 : 1975 Admission Diagnosis: Attending: MICHAEL BUCKLEY Current LOS: 8 Anticipated DC Date: Planned Disposition: Usp Facility Primary Insurance: MEDICARE A & B Discharge Planning Comments: RECIEVED PHONE CALL FROM PARMJIT AT [facility] AND THEY HAVE DENIED PATIENT PLACEMENT BECAUSE OF NO BED AVAILABLE. ARIANNA DIAZ CM IS WORKING ON OTHER PLACEMENT. Senior Technical Specialist: Sylvia Silva DCP- Discharge Planning Updated by [id number]: Brock Chavez on 04/18/19 5:[address] Patient Name: CHRISTINE NGUYEN Encounter No: [id number] : 1975 Primary Insurance: MEDICARE A & B Anticipated DC Date: Planned Disposition: Usp Facility External Planned Provider: [facility], [place] Discharge Planning Comments: CM RECEIVED CALL FROM SYLVIA GODOY OF [employer], SHE WILL MEET WITH PT FOR THE LEVEL 2 DONA SCREENING TODAY. CM PRINTED DOCUMENTS TAMARILU BEE WILL NEED UPON HER ARRIVAL AND WILL PROVIDE THEM TO HER. CM CALLED [employer], LEFT DETAILED MESSAGE TO FOLLOW UP ON MEDICAID APPLICATION STATUS THAT PT REPORTS WAS STARTED TWO WEEKS AGO BY THE HOSPITAL. CM RECEIVED CALL FROM YVROSE OF [facility], REQUSTING FAX UPDATE BEFORE NOON TOMORROW FOR COMMITTE REVIEW TOMORROW. CM WAITING LEVEL 2 DONA SCREENING COMPLETION WELL ADMISSION DETERMINATION FROM [facility] IN [place] FOR PLACEMENT. CM WAITING INFORMATION ON STATUS OF MEDICAID APPLICATION. Senior Technical Specialist: Brock Chavez Appended by Brock Chavez on 04/18/2019 18:09 TUBE HANDLER: CM FAXED UPDATE TO [facility], . CM SPOKE TO WYATT OF [employer] WHO INFORMED CM THAT PT HAS APPLIED FOR SECONDARY MEDICAID "QMB" AND THERE IS NO DETERMINATION STATUS OF YET. CM WAITING LEVEL 2 DONA SCREENING COMPLETION WELL ADMISSION DETERMINATION FROM [facility] IN [place] FOR PLACEMENT. CM WAITING INFORMATION ON STATUS OF MEDICAID APPLICATION. Senior Technical Specialist: Brock Chavez DCP- Discharge Planning Updated by [id number]: Brock Chavez on 04/15/19 5:[address] Patient Name: CHRISTINE NGUYEN Encounter No: [id number] : 1975 Primary Insurance: MEDICARE A & B Anticipated DC Date: Planned Disposition: Usp Facility External Planned Provider: [facility] Discharge Planning Comments: CM RECEIVED REQUEST TO MEET WITH PT AND DAUGHTER IN ROOM. CHRISTINE NGUYEN provided verbal consent to discuss current and ongoing needs with/in the presence of: SIMONE GUTHRIE, . QUESTIONS ANSWERED. PT AND DAUGHTER IN AGREEMENT WITH PLACEMENT AT [facility] AND IF DECLINED, WILL GO TO ANY NURSING FACILITY THAT WILL ACCEPT. PT ASKED THAT HOSPITAL FOLLOW UP ON HER MEDICAID APPLICATION THAT WAS STARTED TWO WEEKS AGO BY THE HOSPITAL. CM WAITING LEVEL 2 DONA SCREENING COMPLETION WELL ADMISSION DETERMINATION FROM [facility] IN [place] FOR PLACEMENT. CM TO FOLLOW UP WITH BUSINESS OFFICE TO CHECK ON STATUS OF MEDICAID APPLICATION. Senior Technical Specialist: Brock Chavez DCP- Discharge Planning Updated by [id number]: Brock Chavez on 04/14/19 5:[address] Patient Name: CHRISTINE NGUYEN Encounter No: [id number] : 1975 Primary Insurance: MEDICARE A & B Anticipated DC Date: Planned Disposition: Usp Facility External Planned Provider: [facility] Discharge Planning Comments: CM RECEIVED NOTICE THAT PT WILL REQUIRE LEVEL 2 DONA SCREENING. PT CANNOT ADMIT TO ANY SNF IN THE [facility] UNTIL THIS IS DONE. IT MAY TAKE UP TO 9 BUSINESS DAYS TO COMPLETE. CM WAITING LEVEL 2 DONA SCREENING COMPLETION WELL ADMISSION DETERMINATION FROM [facility] IN [place] FOR PLACEMENT. Senior Technical Specialist: Brock Chavez DCP- Discharge Planning Updated by [id number]: Brock Chavez on 04/14/19 11:[address] Patient Name: CHRISTINE NGUYEN Encounter No: [id number] : 1975 Primary Insurance: MEDICARE A & B Anticipated DC Date: Planned Disposition: Usp Facility External Planned Provider: [facility] Discharge Planning Comments: CM COMPLETED DONA SCREENING FORM, OBTAINED PT AND DOCTORS SIGNATURES. CM FAXED TO [employer] AT [phone] TO REQUEST ASSESSMENT DUE TO DIAGNOSIS OF BIPOLAR. CM WAITING DONA SCREENING COMPLETION WELL ADMISSION DETERMINATION FROM [facility] IN [place] FOR PLACEMENT. Senior Technical Specialist: Brock Chavez DCP- Discharge Planning Updated by [id number]: Brock Chavez on 04/13/19 4:[address] Patient Name: CHRISTINE NGUYEN Admission Status: ER Accout number: [id number] Admission Date: 04-12-2019 : 1975 Admission Diagnosis: Attending: MICHAEL BUCKLEY Current LOS: 1 Anticipated DC Date: Planned Disposition: Usp Facility Primary Insurance: MEDICARE A & B PLANNED EXTERNAL PROVIDER: [facility], [place] Discharge Planning Comments: CM RECEIVED ORDER FOR "PT HAS NO WHERE TO GO." CM SPOKE TO DERIK BELLA OF [facility], WHO REPORTS HAVING OPEN INVESTIGATION BUT NO APS HOLD ON PATIENT AT THIS TIME. DERIK REPORTS PT HAS PLACEMENT AT [facility] IN [place] AND PROVIDED CONTACT INFORMATION FOR [facility], TELEPHONE [phone]. CM CALLED [facility] AND LEFT MESSAGE ASKING FOR RETURN CALL. PT IN ROOM TO DISCUSS DISCHARGE PLANNING AND NEEDS. PT REPORTS SHE WAS LIVING AT FRIENDS HOMES WITH HER FIANCE AND NOW HAVE NO PLACE TO LIVE. PT REPORTS NEEDING ASSISTANCE WITH AMBULATION OVER DISTANCES AND HAS A WHEELCHAIR AT A FRIENDS HOUSE AND HER FAMILY HAS HER SHOWER CHAIR. PT HAS NO OTHER MEDICAL EQUIPENT AND NO EQUIPMENT PROVIDER PREFERENCE. PT HAS NO OUTSIDE SERVICES ASSISTING IN THE HOME. PT DOES NOT KNOW HOW ADULT PROTECTIVE SERVICES WAS CALLED BUT SUSPECTS IT WAS A FRIEND OR FAMILY MEMBER TO CALL AND PT REPORTS "THEY HAVE BEEN CALLED LOTS OF TIMES." CM DISCUSSED AVAILABILITY OF HOME HEALTH, REHAB SERVICES AND MEDICAL EQUIPMENT. PT HAS TALKED TO DERIK OF APS AND IS AGREEABLE TO PLACEMENT AT [facility] IN [place]. CHOICE SIGNED. CM FAXED REFERRAL FOR PLACEMENT TO [facility] AT [phone]. CM WILL FOLLOW UP WITH CALL SIDDHARTH [facility] TOMORROW AND CM ANTICIPATES COMPLETING DONA SCREENING SOON POSSIBLE IF IT IS REQUIRED FOR PLACEMENT. Senior Technical Specialist: Brock Chavez DCPIA - Discharge Planning Initial Assessment Updated by [id number]: Brock Chavez on 04/13/19 5:22 pm * Is the patient Alert and Oriented? Yes * How many steps to enter\\exit or inside your home? NONE * PCP DR. NUR * Pharmacy [facility] * Preadmission Environment Home with Family * ADLs Independent * Equipment Shower Chair Wheelchair * Other Equipment NO MEDICAL EQUIPMENT PROVIDER PREFERENCE * List name and contact numbers for known caregivers / representatives who currently or will assist patient after discharge: BONILLA LEONARD'S SISTER, * Verbal permission to speak to the caregivers and representatives has been obtained from the patient. N/A * Community resources currently utilized None * Please name any agencies selected above. NONE * Additional services required to return to the preadmission environment? Yes * Can the patient safely return to the preadmission environment? Yes * Has this patient been hospitalized within the prior 30 days at any hospital? Yes Coverage Notice Reviewer: [id number] Sukumar Juares Notice Issued Date-Time: 04/13/2019 7:55 Notice Type: Medicare Outpatient Observation Notice Notice Delivered To: Patient Relationship to Patient: Criminal Justice Teacher Name: Delivery Method: HAND - Hand Delivered Lashonda Days: Prior Verbal Notification: Recipient Understood Notice: Yes Recipient Signature: Yes Med Rec Note Co-signed by Attending: Coverage Notice Comment: PALMER SERVED, EXPLAINED, SIGNED BY PATIENT AND ORIGINAL PROVIDED AND COPY PLACED ON CHART. Reviewer: [id number] Sukumar Chavez Notice Issued Date-Time: 04/13/2019 16:20 Notice Type: Patient Choice Letter Notice Delivered To: Patient Relationship to Patient: Criminal Justice Teacher Name: Delivery Method: HAND - Hand Delivered Lashonda Days: Prior Verbal Notification: Recipient Understood Notice: Yes Recipient Signature: Yes Med Rec Note Co-signed by Attending: Coverage Notice Comment: [facility] Last DP export: 04/21/19 2:39 p Patient Name: CHRISTINE NGUYEN Page [id number] at 1558 All edits/amendments must be made on the electronic document DICTATION DATE: 04/21/197 LABORER GOLF COURSE: KAYODE 04/21/19 1557 RPT#: [id number] DC DATE: STATUS: ADM IN [facility] [address] [place] [address] END OF REPORT
[2019-04-21 20:00] VITALS: BP 103/57
[2019-04-22 04:00] VITALS: BP 103/61
[2019-04-22 10:03] VITALS: BP 96/60
[2019-04-22 12:40] VITALS: BP 102/74
[2019-04-22 18:09] VITALS: BP 90/58
--- NOTE | 2019-04-22 18:41 | NUR ---
PT HAS SPENT MOST OF DAY SLEEPING. PUREWICK IN PLACE, DOES NOT STAY IN PLACE WELL DUE TO PT SWAPPING LEGS AROUND. SIGNIGICANT OTHER AT BEDSIDE.
[2019-04-22 20:30] VITALS: BP 100/58
[2019-04-23 04:30] VITALS: BP 99/53
--- NOTE | 2019-04-23 07:47 | NUR ---
RECIEVED REPORT. PATIENT IS RESTING QUIETLY AT THIS TIME. SHE IS ALERT AND AWAKE. DENIES ANY NEEDS AT THIS TIME.
[2019-04-23 08:21] VITALS: BP 107/60
[2019-04-23 11:22] VITALS: BP 103/58
[2019-04-23 15:32] VITALS: BP 101/65
--- NOTE | 2019-04-23 15:59 | NUR ---
CALLED DR ABOUT PATIENT REPORTING YEAST. DIFLUCAN ORDERED AND NYSTATIN POWDER. PATIENT IS ALERT AND AWAKE AND DENIES ANY OTHER NEEDS AT THIS TIME.
[2019-04-23 20:30] VITALS: BP 93/59
[2019-04-24 02:40] LABS: EOSINOPHILS 2.1 % (0-7); HEMATOCRIT 39.7 % (36.0-48.0); HEMOGLOBIN 12.9 g/dL (12-16); IMMATURE GRANULOCYTES 0.5 % (0-5); LYMPHOCYTES 27.3 % (15-50); MCH 30.3 pg (26.0-34.0); MCHC 32.5 g/dL (31.0-37.0); MCV 93.2 fL (80.0-100.0); MEAN PLATELET VOLUME 10.6 fL (7.4-10.4); MONOCYTES 6.3 % (2-11); NEUTROPHILS 62.8 % (40-80); PLATELET COUNT 311 10x3/uL (130-400); RBC 4.26 10x6/uL (4.00-5.40); RDW 12.6 % (11.5-14.5); WBC 9.8 10x3/uL (4.8-10.8)
[2019-04-24 02:51] LABS: CALC OSMOLALITY 281 mosm/kg (275-300); CALCIUM 8.9 mg/dL (8.5-10.1); CHLORIDE - SERUM 102 mmol/L (98-107); CREATININE - SERUM 0.7 mg/dL (0.6-1.3); GLUCOSE 180 mg/dL (74-106); POTASSIUM - SERUM 4.1 mmol/L (3.5-5.1); SODIUM 138 mmol/L (136-145); UREA NITROGEN 15 mg/dL (7-18); eGFR NON AFRICAN AMERICAN > 90 mL/min (90-120)
[2019-04-24 04:30] VITALS: BP 96/61
[2019-04-24 08:06] VITALS: BP 97/60
--- NOTE | 2019-04-24 09:08 | NUR ---
RECIEVED REPORT, PATIENT IS SITTING UP IN BED EATTING BREAKFAST AT THIS TIME. REPORTS THAT SHE IS LESS ITCHY IN PERIA AREA TODAY. SHE IS NOT TOLERATING THE PUREWICK VERY WELL. SIGNIFICANT OTHER AT BEDSIDE. PATIENT DENIES ANY OTHER NEEDS AT THIS TIME.
[2019-04-24 11:47] VITALS: BP 94/52
--- NOTE | 2019-04-24 14:02 | NUR ---
OT NOTE: (DOS 04/22/19) PT COMPLETED FACE AND HAND HYGIENE TASKS WITH SET UP. PT COMPLETED RUE AROM EXS AND LUE PROM AND POSITONING. PT APPEARS VERY LETHARGIC. PT STATED SHE DID NOT WANT TO WORK ON BED MOB TASKS TODAY AND HAS BEEN TRYING TO GET REST. PT GUEST SLEEPING IN CHAIR. [phone] THANK YOU,XANDER BENITEZ
[2019-04-24 15:55] VITALS: BP 108/68
--- NOTE | 2019-04-24 19:10 | NUR ---
REPROT RECEIVED. BEDSIDE SHIFT REPROT COMPLETE. PT RESTING IN BED WATCHING TV, RR EVEN AND UNLABORED. BOYFRIEND PRESENT AT BEDSIDE. NO NEEDS EXPRESSED AT THIS TIME. NO S/SX OF DISTRESS OBSERVED. CALL LIGHT IN REACH. WILL CTM.
[2019-04-24 20:30] VITALS: BP 101/53
[2019-04-25 04:30] VITALS: BP 96/62
--- NOTE | 2019-04-25 07:10 | NUR ---
CALLED PHARMACY FOR MARCI.
[2019-04-25 08:43] VITALS: BP 92/56
--- NOTE | 2019-04-25 09:44 | MORECARE ---
CASE MANAGEMENT DISCHARGE SUMMARY PATIENT: CHRISTINE NGUYEN UNIT: [id number] ADM DATE: 04/13/19 AGE: 43 : [birth year] SEX: F ROOM/BED: D.2100 AUTHOR: ARTIE,DOC PHYSICIAN: REFERRING PHYSICIAN: MICHAEL BUCKLEY DO DATE OF SERVICE: 04/25/19 Discharge Plan Patient Name: CHRISTINE NGUYEN Facility: [facility]:[place] : 1975 Planned Disposition: Retirement Facility Anticipated Discharge Date: Discharge Date: Expected LOS: Initial Reviewer: [id number] Initial Review Date: 04/13/2019 Generated: 04/25/19 10:43 am DCP- Discharge Planning Updated by [id number]: Chey Moreno on 04/21/19 2:[address] CM UPDATED THE PATIENT VIA TELEPHONE OF PENDING [place] ASSESSMENT AND [facility] DENIAL SECONDARY TO NO BEDS. SHE STATES SHE IS LOOKING FOR AN APARTMENT IN [place]. CM ADVISED SEARCH FOR SKILLED FACILITY MUST PROCEED. SHE STATES WE CAN SEARCH IN [place] ,[place] OR IN BETWEEN. DERIK MEJIA FROM [facility] IS FOLLOWING THIS PATIENT. NADIA MESSINA, HAS BEEN IN COMMUNICATION WITH HIM. NADIA CALLED [phone]. LEFT MESSAGE REQUESTING CALL BACK FOR ASSISTANCE WITH PLACEMENT. DCP- Discharge Planning Updated by [id number]: Chey Moreno on 04/21/19 2:[address] 1533 TELEPHONE CALL TO DARLYN HERNANDEZ, ENGINEERING RECRUITER, TO ASCERTAIN IF LEVEL II DONA DECISION HAD BEEN FORWARDED VIA FAX. NO NOTIFICATION AT THIS TIME. DCP- Discharge Planning Updated by [id number]: Chey Moreno on 04/21/19 11:[address] TELEPHONE CALL TO [employer], SPOKE French/ CARMEN. SHE STATES [facility] SHOULD BE RECEIVING A LETTER THIS AFTERNOON REGARDING SECOND LEVEL DECISION. TELEPHONE CALL TO [employer]. SPOKE French/ EDWIN. APPLICATION HAS BEEN SUBMITTED. APPEARS SHE WILL QUALIFY FOR B MEDICAID WHICH MAY ACTIVATE April. DCP- Discharge Planning Updated by [id number]: Sylvia Silva on 04/21/19 11:[address] Patient Name: CHRISTINE NGUYEN Admission Status: ER Accout number: [id number] Admission Date: 04-13-2019 : 1975 Admission Diagnosis: Attending: MICHAEL BUCKLEY Current LOS: 8 Anticipated DC Date: Planned Disposition: Retirement Facility Primary Insurance: MEDICARE A & B Discharge Planning Comments: RECIEVED PHONE CALL FROM PARMJIT AT [facility] AND THEY HAVE DENIED PATIENT PLACEMENT BECAUSE OF NO BED AVAILABLE. ARIANNA DIAZ CM IS WORKING ON OTHER PLACEMENT. Car Chaser: Sylvia Silva DCP- Discharge Planning Updated by [id number]: Brock Chavez on 04/18/19 5:[address] Patient Name: CHRISTINE NGUYEN Encounter No: [id number] : 1975 Primary Insurance: MEDICARE A & B Anticipated DC Date: Planned Disposition: Retirement Facility External Planned Provider: [facility], [place] Discharge Planning Comments: CM RECEIVED CALL FROM SYLVIA GODOY OF [employer], SHE WILL MEET WITH PT FOR THE LEVEL 2 DONA SCREENING TODAY. CM PRINTED DOCUMENTS TAMARILU BEE WILL NEED UPON HER ARRIVAL AND WILL PROVIDE THEM TO HER. CM CALLED [employer], LEFT DETAILED MESSAGE TO FOLLOW UP ON MEDICAID APPLICATION STATUS THAT PT REPORTS WAS STARTED TWO WEEKS AGO BY THE HOSPITAL. CM RECEIVED CALL FROM YVROSE OF [facility], REQUSTING FAX UPDATE BEFORE NOON TOMORROW FOR COMMITTE REVIEW TOMORROW. CM WAITING LEVEL 2 DONA SCREENING COMPLETION WELL ADMISSION DETERMINATION FROM [facility] IN [place] FOR PLACEMENT. CM WAITING INFORMATION ON STATUS OF MEDICAID APPLICATION. Car Chaser: Brock Chavez Appended by Brock Chavez on 04/18/2019 18:09 COMMISSION AGENT LIVESTOCK: CM FAXED UPDATE TO [facility], . CM SPOKE TO WYATT OF [employer] WHO INFORMED CM THAT PT HAS APPLIED FOR SECONDARY MEDICAID "QMB" AND THERE IS NO DETERMINATION STATUS OF YET. CM WAITING LEVEL 2 DONA SCREENING COMPLETION WELL ADMISSION DETERMINATION FROM [facility] IN [place] FOR PLACEMENT. CM WAITING INFORMATION ON STATUS OF MEDICAID APPLICATION. Car Chaser: Brock Chavez DCP- Discharge Planning Updated by [id number]: Brock Chavez on 04/15/19 5:[address] Patient Name: CHRISTINE NGUYEN Encounter No: [id number] : 1975 Primary Insurance: MEDICARE A & B Anticipated DC Date: Planned Disposition: Retirement Facility External Planned Provider: [facility] Discharge Planning Comments: CM RECEIVED REQUEST TO MEET WITH PT AND DAUGHTER IN ROOM. CHRISTINE NGUYEN provided verbal consent to discuss current and ongoing needs with/in the presence of: SIMONE GUTHRIE, . QUESTIONS ANSWERED. PT AND DAUGHTER IN AGREEMENT WITH PLACEMENT AT [facility] AND IF DECLINED, WILL GO TO ANY NURSING FACILITY THAT WILL ACCEPT. PT ASKED THAT HOSPITAL FOLLOW UP ON HER MEDICAID APPLICATION THAT WAS STARTED TWO WEEKS AGO BY THE HOSPITAL. CM WAITING LEVEL 2 DONA SCREENING COMPLETION WELL ADMISSION DETERMINATION FROM [facility] IN [place] FOR PLACEMENT. CM TO FOLLOW UP WITH BUSINESS OFFICE TO CHECK ON STATUS OF MEDICAID APPLICATION. Car Chaser: Brock Chavez DCP- Discharge Planning Updated by [id number]: Brock Chavez on 04/14/19 5:[address] Patient Name: CHRISTINE NGUYEN Encounter No: [id number] : 1975 Primary Insurance: MEDICARE A & B Anticipated DC Date: Planned Disposition: Retirement Facility External Planned Provider: [facility] Discharge Planning Comments: CM RECEIVED NOTICE THAT PT WILL REQUIRE LEVEL 2 DONA SCREENING. PT CANNOT ADMIT TO ANY SENIOR LIVING IN THE [facility] UNTIL THIS IS DONE. IT MAY TAKE UP TO 9 BUSINESS DAYS TO COMPLETE. CM WAITING LEVEL 2 DONA SCREENING COMPLETION WELL ADMISSION DETERMINATION FROM [facility] IN [place] FOR PLACEMENT. Car Chaser: Brock Chavez DCP- Discharge Planning Updated by [id number]: Brock Chavez on 04/14/19 11:[address] Patient Name: CHRISTINE NGUYEN Encounter No: [id number] : 1975 Primary Insurance: MEDICARE A & B Anticipated DC Date: Planned Disposition: Retirement Facility External Planned Provider: [facility] Discharge Planning Comments: CM COMPLETED DONA SCREENING FORM, OBTAINED PT AND DOCTORS SIGNATURES. CM FAXED TO [employer] AT [phone] TO REQUEST ASSESSMENT DUE TO DIAGNOSIS OF BIPOLAR. CM WAITING DONA SCREENING COMPLETION WELL ADMISSION DETERMINATION FROM [facility] IN [place] FOR PLACEMENT. Car Chaser: Brock Chavez DCP- Discharge Planning Updated by [id number]: Brock Chavez on 04/13/19 4:[address] Patient Name: CHRISTINE NGUYEN Admission Status: ER Accout number: [id number] Admission Date: 04-12-2019 : 1975 Admission Diagnosis: Attending: MICHAEL BUCKLEY Current LOS: 1 Anticipated DC Date: Planned Disposition: Retirement Facility Primary Insurance: MEDICARE A & B PLANNED EXTERNAL PROVIDER: [facility] [place] Discharge Planning Comments: CM RECEIVED ORDER FOR "PT HAS NO WHERE TO GO." CM SPOKE TO DERIK BELLA OF [facility], WHO REPORTS HAVING OPEN INVESTIGATION BUT NO APS HOLD ON PATIENT AT THIS TIME. DERIK REPORTS PT HAS PLACEMENT AT [facility] IN [place] AND PROVIDED CONTACT INFORMATION FOR [facility], TELEPHONE [phone]. CM CALLED [facility] AND LEFT MESSAGE ASKING FOR RETURN CALL. PT IN ROOM TO DISCUSS DISCHARGE PLANNING AND NEEDS. PT REPORTS SHE WAS LIVING AT FRIENDS HOMES WITH HER FIANCE AND NOW HAVE NO PLACE TO LIVE. PT REPORTS NEEDING ASSISTANCE WITH AMBULATION OVER DISTANCES AND HAS A WHEELCHAIR AT A FRIENDS HOUSE AND HER FAMILY HAS HER SHOWER CHAIR. PT HAS NO OTHER MEDICAL EQUIPENT AND NO EQUIPMENT PROVIDER PREFERENCE. PT HAS NO OUTSIDE SERVICES ASSISTING IN THE HOME. PT DOES NOT KNOW HOW ADULT PROTECTIVE SERVICES WAS CALLED BUT SUSPECTS IT WAS A FRIEND OR FAMILY MEMBER TO CALL AND PT REPORTS "THEY HAVE BEEN CALLED LOTS OF TIMES." CM DISCUSSED AVAILABILITY OF HOME HEALTH, REHAB SERVICES AND MEDICAL EQUIPMENT. PT HAS TALKED TO DERIK OF [facility]PS AND IS AGREEABLE TO PLACEMENT AT [facility] IN [place]. CHOICE SIGNED. CM FAXED REFERRAL FOR PLACEMENT TO [facility] AT [phone]. CM WILL FOLLOW UP WITH CALL SIDDHARTH [facility] TOMORROW AND CM ANTICIPATES COMPLETING DONA SCREENING SOON POSSIBLE IF IT IS REQUIRED FOR PLACEMENT. Car Chaser: Brock Chavez DCPIA - Discharge Planning Initial Assessment Updated by [id number]: Brock Chavez on 04/13/19 5:22 pm * Is the patient Alert and Oriented? Yes * How many steps to enter\\exit or inside your home? NONE * PCP DR. NUR * Pharmacy [facility] * Preadmission Environment Home with Family * ADLs Independent * Equipment Shower Chair Wheelchair * Other Equipment NO MEDICAL EQUIPMENT PROVIDER PREFERENCE * List name and contact numbers for known caregivers / representatives who currently or will assist patient after discharge: BONILLA LEONARD'S SISTER, * Verbal permission to speak to the caregivers and representatives has been obtained from the patient. N/A * Community resources currently utilized None * Please name any agencies selected above. NONE * Additional services required to return to the preadmission environment? Yes * Can the patient safely return to the preadmission environment? Yes * Has this patient been hospitalized within the prior 30 days at any hospital? Yes Coverage Notice Reviewer: [id number] Sukumar Juares Notice Issued Date-Time: 04/13/2019 7:55 Notice Type: Medicare Outpatient Observation Notice Notice Delivered To: Patient Relationship to Patient: Wood Patternmaker Apprentice Name: Delivery Method: HAND - Hand Delivered Lashonda Days: Prior Verbal Notification: Recipient Understood Notice: Yes Recipient Signature: Yes Med Rec Note Co-signed by Attending: Coverage Notice Comment: PALMER SERVED, EXPLAINED, SIGNED BY PATIENT AND ORIGINAL PROVIDED AND COPY PLACED ON CHART. Reviewer: [id number] Sukumar Chavez Notice Issued Date-Time: 04/13/2019 16:20 Notice Type: Patient Choice Letter Notice Delivered To: Patient Relationship to Patient: Wood Patternmaker Apprentice Name: Delivery Method: HAND - Hand Delivered Lashonda Days: Prior Verbal Notification: Recipient Understood Notice: Yes Recipient Signature: Yes Med Rec Note Co-signed by Attending: Coverage Notice Comment: [facility] Reviewer: [id number] Sukumar Moreno Notice Issued Date-Time: 04/21/2019 16:13 Notice Type: Patient Choice Letter Notice Delivered To: Patient Relationship to Patient: Self Wood Patternmaker Apprentice Name: Delivery Method: HAND - Hand Delivered Lashonda Days: Prior Verbal Notification: Recipient Understood Notice: Yes Recipient Signature: Yes Med Rec Note Co-signed by Attending: Coverage Notice Comment: PATIENT CHOICE FORM FOR RETIREMENT FACILITY SEARCH FOR ANY FACILITY BETWEEN [place] AND [place], [place]. CONSENT PER PATIENT'S INSTRUCTION. COPY TO THE PATIENT, COPY TO THE CHART, BOTH ORIGINALS Last DP export: 04/21/19 2:58 p Patient Name: CHRISTINE NGUYEN Page [id number] at 0944 All edits/amendments must be made on the electronic document DICTATION DATE: 04/25/19942 CARCASS SPLITTER: DM 04/25/19942 RPT#: [id number] DC DATE: STATUS: ADM IN [facility] [address] [place] [address] END OF REPORT
--- NOTE | 2019-04-25 10:23 | MORECARE ---
CASE MANAGEMENT DISCHARGE SUMMARY PATIENT: CHRISTINE NGUYEN UNIT: [id number] ADM DATE: 04/13/19 AGE: 43 : [birth year] SEX: F ROOM/BED: D.2107 AUTHOR: ARTIE,DOC PHYSICIAN: REFERRING PHYSICIAN: MICHAEL BUCKLEY DO DATE OF SERVICE: 04/25/19 Discharge Plan Patient Name: CHRISTINE NGUYEN Facility: [facility]:[place] : 1975 Planned Disposition: Assisted Facility Anticipated Discharge Date: Discharge Date: Expected LOS: Initial Reviewer: [id number] Initial Review Date: 04/13/2019 Generated: 04/25/19 11:23 am DCP- Discharge Planning Updated by [id number]: Chey Moreno on 04/21/19 2:[address] CM UPDATED THE PATIENT VIA TELEPHONE OF [place] [facility]ESSMENT AND [facility] DENIAL SECONDARY TO NO BEDS. SHE STATES SHE IS LOOKING FOR AN APARTMENT IN [place]. CM ADVISED SEARCH FOR SKILLED FACILITY MUST PROCEED. SHE STATES WE CAN SEARCH IN [place] ,[place] OR IN BETWEEN. DERIK MEJIA FROM [facility] IS FOLLOWING THIS PATIENT. NADIA MESSINA, HAS BEEN IN COMMUNICATION WITH HIM. NADIA CALLED [phone]. LEFT MESSAGE REQUESTING CALL BACK FOR ASSISTANCE WITH PLACEMENT. DCP- Discharge Planning Updated by [id number]: Chey Moreno on 04/21/19 2:[address] 1533 TELEPHONE CALL TO DARLYN HERNANDEZ, DRILLING FOREMAN, TO ASCERTAIN IF LEVEL II DONA DECISION HAD BEEN FORWARDED VIA FAX. NO NOTIFICATION AT THIS TIME. DCP- Discharge Planning Updated by [id number]: Chey Moreno on 04/21/19 11:[address] TELEPHONE CALL TO [employer], SPOKE French/ CARMEN. SHE STATES [facility] SHOULD BE RECEIVING A LETTER THIS AFTERNOON REGARDING SECOND LEVEL DECISION. TELEPHONE CALL TO [employer]. SPOKE French/ EDWIN. APPLICATION HAS BEEN SUBMITTED. APPEARS SHE WILL QUALIFY FOR B MEDICAID WHICH MAY ACTIVATE April. DCP- Discharge Planning Updated by [id number]: Sylvia Silva on 04/21/19 11:[address] Patient Name: CHRISTINE NGUYEN Admission Status: ER Accout number: [id number] Admission Date: 04-13-2019 : 1975 Admission Diagnosis: Attending: MICHAEL BUCKLEY Current LOS: 8 Anticipated DC Date: Planned Disposition: Assisted Facility Primary Insurance: MEDICARE A & B Discharge Planning Comments: RECIEVED PHONE CALL FROM PARMJIT AT [facility] AND THEY HAVE DENIED PATIENT PLACEMENT BECAUSE OF NO BED AVAILABLE. ARIANNA DIAZ CM IS WORKING ON OTHER PLACEMENT. Welt Maker: Sylvia Silva DCP- Discharge Planning Updated by [id number]: Brock Chavez on 04/18/19 5:[address] Patient Name: CHRISTINE NGUYEN Encounter No: [id number] : 1975 Primary Insurance: MEDICARE A & B Anticipated DC Date: Planned Disposition: Assisted Facility External Planned Provider: [facility] [place] Discharge Planning Comments: CM RECEIVED CALL FROM SYLVIA GODOY OF [employer], SHE WILL MEET WITH PT FOR THE LEVEL 2 DONA SCREENING TODAY. CM PRINTED DOCUMENTS TAMARILU BEE WILL NEED UPON HER ARRIVAL AND WILL PROVIDE THEM TO HER. CM CALLED [phone], LEFT DETAILED MESSAGE TO FOLLOW UP ON MEDICAID APPLICATION STATUS THAT PT REPORTS WAS STARTED TWO WEEKS AGO BY THE HOSPITAL. CM RECEIVED CALL FROM YVROSE OF [facility], REQUSTING FAX UPDATE BEFORE NOON TOMORROW FOR COMMITTE REVIEW TOMORROW. CM WAITING LEVEL 2 DONA SCREENING COMPLETION WELL ADMISSION DETERMINATION FROM [facility] IN [place] FOR PLACEMENT. CM WAITING INFORMATION ON STATUS OF MEDICAID APPLICATION. Welt Maker: Brock Chavez Appended by Brock Chavez on 04/18/2019 18:09 TRANSFER COORDINATOR: CM FAXED UPDATE TO [facility], . CM SPOKE TO WYATT OF [employer] WHO INFORMED CM THAT PT HAS APPLIED FOR SECONDARY MEDICAID "QMB" AND THERE IS NO DETERMINATION STATUS OF YET. CM WAITING LEVEL 2 DONA SCREENING COMPLETION WELL ADMISSION DETERMINATION FROM [facility] IN [place] FOR PLACEMENT. CM WAITING INFORMATION ON STATUS OF MEDICAID APPLICATION. Welt Maker: Brock Chavez DCP- Discharge Planning Updated by [id number]: Brock Chavez on 04/15/19 5:[address] Patient Name: CHRISTINE NGUYEN Encounter No: [id number] : 1975 Primary Insurance: MEDICARE A & B Anticipated DC Date: Planned Disposition: Assisted Facility External Planned Provider: [facility] Discharge Planning Comments: CM RECEIVED REQUEST TO MEET WITH PT AND DAUGHTER IN ROOM. CHRISTINE NGUYEN provided verbal consent to discuss current and ongoing needs with/in the presence of: SIMONE GUTHRIE, . QUESTIONS ANSWERED. PT AND DAUGHTER IN AGREEMENT WITH PLACEMENT AT [facility] AND IF DECLINED, WILL GO TO ANY NURSING FACILITY THAT WILL ACCEPT. PT ASKED THAT HOSPITAL FOLLOW UP ON HER MEDICAID APPLICATION THAT WAS STARTED TWO WEEKS AGO BY THE HOSPITAL. CM WAITING LEVEL 2 DONA SCREENING COMPLETION WELL ADMISSION DETERMINATION FROM [facility] IN [place] FOR PLACEMENT. CM TO FOLLOW UP WITH BUSINESS OFFICE TO CHECK ON STATUS OF MEDICAID APPLICATION. Welt Maker: Brock Chavez DCP- Discharge Planning Updated by [email or web address]: Brock Chavez on 04/14/19 5:[address] Patient Name: CHRISTINE NGUYEN Encounter No: [id number] : 1975 Primary Insurance: MEDICARE A & B Anticipated DC Date: Planned Disposition: Assisted Facility External Planned Provider: [facility] Discharge Planning Comments: CM RECEIVED NOTICE THAT PT WILL REQUIRE LEVEL 2 DONA SCREENING. PT CANNOT ADMIT TO ANY ALF IN THE [facility] UNTIL THIS IS DONE. IT MAY TAKE UP TO 9 BUSINESS DAYS TO COMPLETE. CM WAITING LEVEL 2 DONA SCREENING COMPLETION WELL ADMISSION DETERMINATION FROM [facility] IN [place] FOR PLACEMENT. Welt Maker: Brock Chavez DCP- Discharge Planning Updated by [id number]: Brock Chavez on 04/14/19 11:[address] Patient Name: CHRISTINE NGUYEN Encounter No: [id number] : 1975 Primary Insurance: MEDICARE A & B Anticipated DC Date: Planned Disposition: Assisted Facility External Planned Provider: [facility] Discharge Planning Comments: CM COMPLETED DONA SCREENING FORM, OBTAINED PT AND DOCTORS SIGNATURES. CM FAXED TO [employer] AT [phone] TO REQUEST ASSESSMENT DUE TO DIAGNOSIS OF BIPOLAR. CM WAITING DONA SCREENING COMPLETION WELL ADMISSION DETERMINATION FROM [facility] IN [place] FOR PLACEMENT. Welt Maker: Brock Chavez DCP- Discharge Planning Updated by [id number]: Borck Chavez on 04/13/19 4:[address] Patient Name: CHRISTINE NGUYEN Admission Status: ER Accout number: [id number] Admission Date: 04-12-2019 : 1975 Admission Diagnosis: Attending: MICHAEL BUCKLEY Current LOS: 1 Anticipated DC Date: Planned Disposition: Assisted Facility Primary Insurance: MEDICARE A & B PLANNED EXTERNAL PROVIDER: [facility], [place] Discharge Planning Comments: CM RECEIVED ORDER FOR "PT HAS NO WHERE TO GO." CM SPOKE TO DERIK BELLA OF [facility], WHO REPORTS HAVING OPEN INVESTIGATION BUT NO APS HOLD ON PATIENT AT THIS TIME. DERIK REPORTS PT HAS PLACEMENT AT [facility] IN [place] AND PROVIDED CONTACT INFORMATION FOR [facility], TELEPHONE [phone]. CM CALLED KASHMIR AND LEFT MESSAGE ASKING FOR RETURN CALL. PT IN ROOM TO DISCUSS DISCHARGE PLANNING AND NEEDS. PT REPORTS SHE WAS LIVING AT FRIENDS HOMES WITH HER FIANCE AND NOW HAVE NO PLACE TO LIVE. PT REPORTS NEEDING ASSISTANCE WITH AMBULATION OVER DISTANCES AND HAS A WHEELCHAIR AT A FRIENDS HOUSE AND HER FAMILY HAS HER SHOWER CHAIR. PT HAS NO OTHER MEDICAL EQUIPENT AND NO EQUIPMENT PROVIDER PREFERENCE. PT HAS NO OUTSIDE SERVICES ASSISTING IN THE HOME. PT DOES NOT KNOW HOW ADULT PROTECTIVE SERVICES WAS CALLED BUT SUSPECTS IT WAS A FRIEND OR FAMILY MEMBER TO CALL AND PT REPORTS "THEY HAVE BEEN CALLED LOTS OF TIMES." CM DISCUSSED AVAILABILITY OF HOME HEALTH, REHAB SERVICES AND MEDICAL EQUIPMENT. PT HAS TALKED TO DERIK OF APS AND IS AGREEABLE TO PLACEMENT AT [facility] IN [place]. CHOICE SIGNED. CM FAXED REFERRAL FOR PLACEMENT TO KASHMIR DUMONT AT [phone]. CM WILL FOLLOW UP WITH CALL SIDDHARTH KASHMIR DUMONT TOMORROW AND CM ANTICIPATES COMPLETING DONA SCREENING SOON POSSIBLE IF IT IS REQUIRED FOR PLACEMENT. Welt Maker: Brock Chavez DCPIA - Discharge Planning Initial Assessment Updated by [id number]: Brock Chavez on 04/13/19 5:22 pm * Is the patient Alert and Oriented? Yes * How many steps to enter\\exit or inside your home? NONE * PCP DR. NUR * Pharmacy [facility] * Preadmission Environment Home with Family * ADLs Independent * Equipment Shower Chair Wheelchair * Other Equipment NO MEDICAL EQUIPMENT PROVIDER PREFERENCE * List name and contact numbers for known caregivers / representatives who currently or will assist patient after discharge: BONILLA LEONARD'S SISTER, * Verbal permission to speak to the caregivers and representatives has been obtained from the patient. N/A * Community resources currently utilized None * Please name any agencies selected above. NONE * Additional services required to return to the preadmission environment? Yes * Can the patient safely return to the preadmission environment? Yes * Has this patient been hospitalized within the prior 30 days at any hospital? Yes External Providers External Provider: [facility] Next Contact Date: 04/25/2019 Service Request Date: Service Type: Resolution: Reviewer: Comments: External Provider: [facility] Next Contact Date: 04/25/2019 Service Request Date: Service Type: Resolution: Reviewer: Comments: Coverage Notice Reviewer: [id number] Sukumar Juares Notice Issued Date-Time: 04/13/2019 7:55 Notice Type: Medicare Outpatient Observation Notice Notice Delivered To: Patient Relationship to Patient: Field Service Analyst Name: Delivery Method: HAND - Hand Delivered Lashonda Days: Prior Verbal Notification: Recipient Understood Notice: Yes Recipient Signature: Yes Med Rec Note Co-signed by Attending: Coverage Notice Comment: SPENCER SERVED, EXPLAINED, SIGNED BY PATIENT AND ORIGINAL PROVIDED AND COPY PLACED ON CHART. Reviewer: [id number] - Brock Chavez Notice Issued Date-Time: 04/13/2019 16:20 Notice Type: Patient Choice Letter Notice Delivered To: Patient Relationship to Patient: Field Service Analyst Name: Delivery Method: HAND - Hand Delivered Lashonda Days: Prior Verbal Notification: Recipient Understood Notice: Yes Recipient Signature: Yes Med Rec Note Co-signed by Attending: Coverage Notice Comment: [facility] Reviewer: [id number] - Chey Moreno Notice Issued Date-Time: 04/21/2019 16:13 Notice Type: Patient Choice Letter Notice Delivered To: Patient Relationship to Patient: Self Field Service Analyst Name: Delivery Method: HAND - Hand Delivered Lashonda Days: Prior Verbal Notification: Recipient Understood Notice: Yes Recipient Signature: Yes Med Rec Note Co-signed by Attending: Coverage Notice Comment: PATIENT CHOICE FORM FOR [facility] FACILITY SEARCH FOR ANY FACILITY BETWEEN [place] AND [place]. CONSENT PER PATIENT'S INSTRUCTION. COPY TO THE PATIENT, COPY TO THE CHART, BOTH ORIGINALS Last DP export: 04/25/19 8:44 am Patient Name: CHRISTINE NGUYEN Page [id number] at 1023 All edits/amendments must be made on the electronic document DICTATION DATE: 04/25/19 1023 LEAD ENGINEER: KAYODE 04/25/19 1023 RPT#: [id number] DC DATE: STATUS: ADM IN [facility] [address] [place] [address] END OF REPORT
--- NOTE | 2019-04-25 10:32 | MORECARE ---
CASE MANAGEMENT DISCHARGE SUMMARY PATIENT: CHRISTINE NGUYEN UNIT: [id number] ADM DATE: 04/13/19 AGE: 43 : [birth year] SEX: F ROOM/BED: D.2107 AUTHOR: ARTIE,DOC PHYSICIAN: REFERRING PHYSICIAN: MICHAEL BUCKLEY DO DATE OF SERVICE: 04/25/19 Discharge Plan Patient Name: CHRISTINE NGUYEN Facility: [facility]:[place] : 1975 Planned Disposition: Half-Way Facility Anticipated Discharge Date: Discharge Date: Expected LOS: Initial Reviewer: [id number] Initial Review Date: 04/13/2019 Generated: 04/25/19 11:32 am DCP- Discharge Planning Updated by [id number]: Chey Moreno on 04/21/19 2:[address] CM UPDATED THE PATIENT VIA TELEPHONE OF [place] ASSESSMENT AND [facility] DENIAL SECONDARY TO NO BEDS. SHE STATES SHE IS LOOKING FOR AN APARTMENT IN [place]. CM ADVISED SEARCH FOR SKILLED FACILITY MUST PROCEED. SHE STATES WE CAN SEARCH IN [place] ,[place] OR IN BETWEEN. DERIK MEJIA FROM [facility] IS FOLLOWING THIS PATIENT. NADIA MESSINA, HAS BEEN IN COMMUNICATION WITH HIM. NADIA CALLED [phone]. LEFT MESSAGE REQUESTING CALL BACK FOR ASSISTANCE WITH PLACEMENT. DCP- Discharge Planning Updated by [id number]: Chey Moreno on 04/21/19 2:[address] 1536 TELEPHONE CALL TO DARLYN HERNANDEZ, KNITTING TESTER, TO ASCERTAIN IF LEVEL II DONA DECISION HAD BEEN FORWARDED VIA FAX. NO NOTIFICATION AT THIS TIME. DCP- Discharge Planning Updated by [id number]: Chey Moreno on 04/21/19 11:[address] TELEPHONE CALL TO [employer], SPOKE French/ CARMEN. SHE STATES [facility] SHOULD BE RECEIVING A LETTER THIS AFTERNOON REGARDING SECOND LEVEL DECISION. TELEPHONE CALL TO [employer] SPOKE French/ EDWIN. APPLICATION HAS BEEN SUBMITTED. APPEARS SHE WILL QUALIFY FOR B MEDICAID WHICH MAY ACTIVATE April. DCP- Discharge Planning Updated by [id number]: Sylvia Silva on 04/21/19 11:[address] Patient Name: CHRISTINE NGUYEN Admission Status: ER Accout number: [id number] Admission Date: 04-13-2019 : 1975 Admission Diagnosis: Attending: MICHAEL BUCKLEY Current LOS: 8 Anticipated DC Date: Planned Disposition: Half-Way Facility Primary Insurance: MEDICARE A & B Discharge Planning Comments: RECIEVED PHONE CALL FROM PARMJIT AT [facility] AND THEY HAVE DENIED PATIENT PLACEMENT BECAUSE OF NO BED AVAILABLE. ARIANNA DIAZ CM IS WORKING ON OTHER PLACEMENT. Mobile Home Park Manager: Sylvia Silva DCP- Discharge Planning Updated by [id number]: Brock Chavez on 04/18/19 5:[address] Patient Name: CHRISTINE NGUYEN Encounter No: [id number] : 1975 Primary Insurance: MEDICARE A & B Anticipated DC Date: Planned Disposition: Half-Way Facility External Planned Provider: [facility] [place] Discharge Planning Comments: CM RECEIVED CALL FROM SYLVIA GODOY OF [employer], SHE WILL MEET WITH PT FOR THE LEVEL 2 ODNA SCREENING TODAY. CM PRINTED DOCUMENTS TAMARILU BEE WILL NEED UPON HER ARRIVAL AND WILL PROVIDE THEM TO HER. CM CALLED [employer], LEFT DETAILED MESSAGE TO FOLLOW UP ON MEDICAID APPLICATION STATUS THAT PT REPORTS WAS STARTED TWO WEEKS AGO BY THE HOSPITAL. CM RECEIVED CALL FROM YVROSE OF [facility], REQUSTING FAX UPDATE BEFORE NOON TOMORROW FOR COMMITTE REVIEW TOMORROW. CM WAITING LEVEL 2 DONA SCREENING COMPLETION WELL ADMISSION DETERMINATION FROM [facility] IN [place] FOR PLACEMENT. CM WAITING INFORMATION ON STATUS OF MEDICAID APPLICATION. Mobile Home Park Manager: rBock Chavez Appended by Brock Chavez on 04/18/2019 18:09 CEMENT GUN OPERATOR: CM FAXED UPDATE TO [facility], . CM SPOKE TO WYATT OF [employer] WHO INFORMED CM THAT PT HAS APPLIED FOR SECONDARY MEDICAID "QMB" AND THERE IS NO DETERMINATION STATUS OF YET. CM WAITING LEVEL 2 DONA SCREENING COMPLETION WELL ADMISSION DETERMINATION FROM [facility] IN [place] FOR PLACEMENT. CM WAITING INFORMATION ON STATUS OF MEDICAID APPLICATION. Mobile Home Park Manager: Brock Chavez DCP- Discharge Planning Updated by [id number]: Brock Chavez on 04/15/19 5:[address] Patient Name: CHRISTINE NGUYEN Encounter No: [id number] : 1975 Primary Insurance: MEDICARE A & B Anticipated DC Date: Planned Disposition: Half-Way Facility External Planned Provider: [facility] Discharge Planning Comments: CM RECEIVED REQUEST TO MEET WITH PT AND DAUGHTER IN ROOM. CHRISTINE NGUYEN provided verbal consent to discuss current and ongoing needs with/in the presence of: SIMONE GUTHRIE, . QUESTIONS ANSWERED. PT AND DAUGHTER IN AGREEMENT WITH PLACEMENT AT [facility] AND IF DECLINED, WILL GO TO ANY NURSING FACILITY THAT WILL ACCEPT. PT ASKED THAT HOSPITAL FOLLOW UP ON HER MEDICAID APPLICATION THAT WAS STARTED TWO WEEKS AGO BY THE HOSPITAL. CM WAITING LEVEL 2 DONA SCREENING COMPLETION WELL ADMISSION DETERMINATION FROM [facility] IN [place] FOR PLACEMENT. CM TO FOLLOW UP WITH BUSINESS OFFICE TO CHECK ON STATUS OF MEDICAID APPLICATION. Mobile Home Park Manager: Brock Chavez DCP- Discharge Planning Updated by [id number]: Brock Chavez on 04/14/19 5:[address] Patient Name: CHRISTINE NGUYEN Encounter No: [id number] : 1975 Primary Insurance: MEDICARE A & B Anticipated DC Date: Planned Disposition: Half-Way Facility External Planned Provider: [facility] Discharge Planning Comments: CM RECEIVED NOTICE THAT PT WILL REQUIRE LEVEL 2 DONA SCREENING. PT CANNOT ADMIT TO ANY FPC IN THE [facility] UNTIL THIS IS DONE. IT MAY TAKE UP TO 9 BUSINESS DAYS TO COMPLETE. CM WAITING LEVEL 2 DONA SCREENING COMPLETION WELL ADMISSION DETERMINATION FROM [facility] IN [place] FOR PLACEMENT. Mobile Home Park Manager: Brock Chavez DCP- Discharge Planning Updated by [email or web address]: Brock Chavez on 04/14/19 11:[address] Patient Name: CHRISTINE NGUYEN Encounter No: [id number] : 1975 Primary Insurance: MEDICARE A & B Anticipated DC Date: Planned Disposition: Half-Way Facility External Planned Provider: [facility] Discharge Planning Comments: CM COMPLETED DONA SCREENING FORM, OBTAINED PT AND DOCTORS SIGNATURES. CM FAXED TO [employer] AT [phone] TO REQUEST ASSESSMENT DUE TO DIAGNOSIS OF BIPOLAR. CM WAITING DONA SCREENING COMPLETION WELL ADMISSION DETERMINATION FROM [facility] IN [place] FOR PLACEMENT. Mobile Home Park Manager: Brock Chavez DCP- Discharge Planning Updated by [id number]: Brock Chavez on 04/13/19 4:[address] Patient Name: CHRISTINE NGUYEN Admission Status: ER Accout number: [id number] Admission Date: 04-12-2019 : 1975 Admission Diagnosis: Attending: MICHAEL BUCKLEY Current LOS: 1 Anticipated DC Date: Planned Disposition: Half-Way Facility Primary Insurance: MEDICARE A & B PLANNED EXTERNAL PROVIDER: [facility] [place] Discharge Planning Comments: CM RECEIVED ORDER FOR "PT HAS NO WHERE TO GO." CM SPOKE TO DERIK BELLA OF [facility]ULT [facility], WHO REPORTS HAVING OPEN INVESTIGATION BUT NO APS HOLD ON PATIENT AT THIS TIME. DERIK REPORTS PT HAS PLACEMENT AT [facility] IN [place] AND PROVIDED CONTACT INFORMATION FOR [facility], TELEPHONE [phone]. CM CALLED KASHMIR AND LEFT MESSAGE ASKING FOR RETURN CALL. PT IN ROOM TO DISCUSS DISCHARGE PLANNING AND NEEDS. PT REPORTS SHE WAS LIVING AT FRIENDS HOMES WITH HER FIANCE AND NOW HAVE NO PLACE TO LIVE. PT REPORTS NEEDING ASSISTANCE WITH AMBULATION OVER DISTANCES AND HAS A WHEELCHAIR AT A FRIENDS HOUSE AND HER FAMILY HAS HER SHOWER CHAIR. PT HAS NO OTHER MEDICAL EQUIPENT AND NO EQUIPMENT PROVIDER PREFERENCE. PT HAS NO OUTSIDE SERVICES ASSISTING IN THE HOME. PT DOES NOT KNOW HOW ADULT PROTECTIVE SERVICES WAS CALLED BUT SUSPECTS IT WAS A FRIEND OR FAMILY MEMBER TO CALL AND PT REPORTS "THEY HAVE BEEN CALLED LOTS OF TIMES." CM DISCUSSED AVAILABILITY OF HOME HEALTH, REHAB SERVICES AND MEDICAL EQUIPMENT. PT HAS TALKED TO DERIK OF APS AND IS AGREEABLE TO PLACEMENT AT [facility] IN [place]. CHOICE SIGNED. CM FAXED REFERRAL FOR PLACEMENT TO KASHMIR DUMONT AT [phone]. CM WILL FOLLOW UP WITH CALL SIDDHARTH KASHMIR DUMONT TOMORROW AND CM ANTICIPATES COMPLETING DONA SCREENING SOON POSSIBLE IF IT IS REQUIRED FOR PLACEMENT. Mobile Home Park Manager: Brock Chavez DCPIA - Discharge Planning Initial Assessment Updated by [id number]: Brock Chavez on 04/13/19 5:22 pm * Is the patient Alert and Oriented? Yes * How many steps to enter\\exit or inside your home? NONE * PCP DR. NUR * Pharmacy [facility] * Preadmission Environment Home with Family * ADLs Independent * Equipment Shower Chair Wheelchair * Other Equipment NO MEDICAL EQUIPMENT PROVIDER PREFERENCE * List name and contact numbers for known caregivers / representatives who currently or will assist patient after discharge: BONILLA LEONARD'S SISTER, * Verbal permission to speak to the caregivers and representatives has been obtained from the patient. N/A * Community resources currently utilized None * Please name any agencies selected above. NONE * Additional services required to return to the preadmission environment? Yes * Can the patient safely return to the preadmission environment? Yes * Has this patient been hospitalized within the prior 30 days at any hospital? Yes External Providers External Provider: [facility] Next Contact Date: 04/25/2019 Service Request Date: Service Type: Resolution: Reviewer: Comments: External Provider: [facility] Next Contact Date: 04/25/2019 Service Request Date: Service Type: Resolution: Reviewer: Comments: External Provider: [facility] Next Contact Date: 04/25/2019 Service Request Date: Service Type: Resolution: Reviewer: Comments: [facility] Next Contact Date: 04/25/2019 Service Request Date: Service Type: Resolution: Reviewer: Comments: Coverage Notice Reviewer: [id number] Sukumar Juares Notice Issued Date-Time: 04/13/2019 7:55 Notice Type: Medicare Outpatient Observation Notice Notice Delivered To: Patient Relationship to Patient: Cigarette Vendor Name: Delivery Method: HAND - Hand Delivered Lsahonda Days: Prior Verbal Notification: Recipient Understood Notice: Yes Recipient Signature: Yes Med Rec Note Co-signed by Attending: Coverage Notice Comment: SPENCER SERVED, EXPLAINED, SIGNED BY PATIENT AND ORIGINAL PROVIDED AND COPY PLACED ON CHART. Reviewer: [id number] - Brock Chavez Notice Issued Date-Time: 04/13/2019 16:20 Notice Type: Patient Choice Letter Notice Delivered To: Patient Relationship to Patient: Cigarette Vendor Name: Delivery Method: HAND - Hand Delivered Lashonda Days: Prior Verbal Notification: Recipient Understood Notice: Yes Recipient Signature: Yes Med Rec Note Co-signed by Attending: Coverage Notice Comment: [facility] Reviewer: [id number] Sukumar Moreno Notice Issued Date-Time: 04/21/2019 16:13 Notice Type: Patient Choice Letter Notice Delivered To: Patient Relationship to Patient: Self Cigarette Vendor Name: Delivery Method: HAND - Hand Delivered Lashonda Days: Prior Verbal Notification: Recipient Understood Notice: Yes Recipient Signature: Yes Med Rec Note Co-signed by Attending: Coverage Notice Comment: PATIENT CHOICE FORM FOR [facility] FACILITY SEARCH FOR ANY FACILITY BETWEEN [place], [place] AND [place], [place]. CONSENT PER PATIENT'S INSTRUCTION. COPY TO THE PATIENT, COPY TO THE CHART, BOTH ORIGINALS Last DP export: 04/25/19 9:23 am Patient Name: CHRISTINE NGUYEN Page [id number] at 1032 All edits/amendments must be made on the electronic document DICTATION DATE: 04/25/19 1032 [employer]: KAYODE 04/25/19 1032 RPT#: [id number] DC DATE: STATUS: ADM IN [facility] [address] [place] [address] END OF REPORT
--- NOTE | 2019-04-25 10:39 | MORECARE ---
CASE MANAGEMENT DISCHARGE SUMMARY PATIENT: CHRISTINE NGUYEN UNIT: [id number] ADM DATE: 04/13/19 AGE: 43 : [birth year] SEX: F ROOM/BED: D.2107 AUTHOR: ARTIE,DOC PHYSICIAN: REFERRING PHYSICIAN: MICHAEL BUCKLEY DO DATE OF SERVICE: 04/25/19 Discharge Plan Patient Name: CHRISTINE NGUYEN Facility: [facility]:[place] : 1975 Planned Disposition: [facility] Facility Anticipated Discharge Date: Discharge Date: Expected LOS: Initial Reviewer: [id number] Initial Review Date: 04/13/2019 Generated: 04/25/19 11:39 am DCP- Discharge Planning Updated by [id number]: Chey Moreno on 04/21/19 2:[address] CM UPDATED THE PATIENT VIA TELEPHONE OF PENDING [place] ASSESSMENT AND [facility] DENIAL SECONDARY TO NO BEDS. SHE STATES SHE IS LOOKING FOR AN APARTMENT IN [place]. CM ADVISED SEARCH FOR SKILLED FACILITY MUST PROCEED. SHE STATES WE CAN SEARCH IN [place] ,[place] OR IN BETWEEN. DERIK MEJIA FROM [employer] [employer] [employer] IS FOLLOWING THIS PATIENT. NADIA MESSINA, HAS BEEN IN COMMUNICATION WITH HIM. NADIA CALLED [phone]. LEFT MESSAGE REQUESTING CALL BACK FOR ASSISTANCE WITH PLACEMENT. DCP- Discharge Planning Updated by [id number]: Chey Moreno on 04/21/19 2:[address] 1531 TELEPHONE CALL TO DARLYN HERNANDEZ, FORKLIFT MECHANIC, TO ASCERTAIN IF LEVEL II DONA DECISION HAD BEEN FORWARDED VIA FAX. NO NOTIFICATION AT THIS TIME. DCP- Discharge Planning Updated by [id number]: Chey Moreno on 04/21/19 11:[address] TELEPHONE CALL TO [employer], SPOKE French/ CARMEN. SHE STATES [facility] SHOULD BE RECEIVING A LETTER THIS AFTERNOON REGARDING SECOND LEVEL DECISION. TELEPHONE CALL TO [employer]. SPOKE French/ EDWIN. APPLICATION HAS BEEN SUBMITTED. APPEARS SHE WILL QUALIFY FOR B MEDICAID WHICH MAY ACTIVATE April. DCP- Discharge Planning Updated by [id number]: Sylvia Silva on 04/21/19 11:[address] Patient Name: CHRISTINE NGUYEN Admission Status: ER Accout number: [id number] Admission Date: 04-13-2019 : 1975 Admission Diagnosis: Attending: MICHAEL BUCKLEY Current LOS: 8 Anticipated DC Date: Planned Disposition: [facility] Facility Primary Insurance: MEDICARE A & B Discharge Planning Comments: RECIEVED PHONE CALL FROM PARMJIT AT [facility] AND THEY HAVE DENIED PATIENT PLACEMENT BECAUSE OF NO BED AVAILABLE. ARIANNA DIAZ CM IS WORKING ON OTHER PLACEMENT. State Assessed Properties Director: Sylvia Silva DCP- Discharge Planning Updated by [id number]: Brock Chavez on 04/18/19 5:[address] Patient Name: CHRISTINE NGUYEN Encounter No: [id number] : 1975 Primary Insurance: MEDICARE A & B Anticipated DC Date: Planned Disposition: [facility]cc Facility External Planned Provider: [facility] [place] Discharge Planning Comments: CM RECEIVED CALL FROM SYLVIA GODOY OF [employer], SHE WILL MEET WITH PT FOR THE LEVEL 2 DONA SCREENING TODAY. CM PRINTED DOCUMENTS TAMARILU BEE WILL NEED UPON HER ARRIVAL AND WILL PROVIDE THEM TO HER. CM CALLED [employer], LEFT DETAILED MESSAGE TO FOLLOW UP ON MEDICAID APPLICATION STATUS THAT PT REPORTS WAS STARTED TWO WEEKS AGO BY THE HOSPITAL. CM RECEIVED CALL FROM YVROSE OF [facility], REQUSTING FAX UPDATE BEFORE NOON TOMORROW FOR COMMITTE REVIEW TOMORROW. CM WAITING LEVEL 2 DONA SCREENING COMPLETION WELL ADMISSION DETERMINATION FROM [facility] IN [place] FOR PLACEMENT. CM WAITING INFORMATION ON STATUS OF MEDICAID APPLICATION. State Assessed Properties Director: Brock Chavez Appended by Brock Chavez on 04/18/2019 18:09 BUSINESS TRANSFORMATION CONSULTANT: CM FAXED UPDATE TO [facility], . CM SPOKE TO WYATT OF [employer] WHO INFORMED CM THAT PT HAS APPLIED FOR SECONDARY MEDICAID "QMB" AND THERE IS NO DETERMINATION STATUS OF YET. CM WAITING LEVEL 2 DONA SCREENING COMPLETION WELL ADMISSION DETERMINATION FROM [facility] IN [place] FOR PLACEMENT. CM WAITING INFORMATION ON STATUS OF MEDICAID APPLICATION. State Assessed Properties Director: Brock Chavez DCP- Discharge Planning Updated by [id number]: Brock Chavez on 04/15/19 5:[address] Patient Name: CHRISTINE NGUYEN Encounter No: [id number] : 1975 Primary Insurance: MEDICARE A & B Anticipated DC Date: Planned Disposition: Mcc Facility External Planned Provider: [facility] Discharge Planning Comments: CM RECEIVED REQUEST TO MEET WITH PT AND DAUGHTER IN ROOM. CHRISTINE NGUYEN provided verbal consent to discuss current and ongoing needs with/in the presence of: SIMONE GUTHRIE, . QUESTIONS ANSWERED. PT AND DAUGHTER IN AGREEMENT WITH PLACEMENT AT [facility] AND IF DECLINED, WILL GO TO ANY NURSING FACILITY THAT WILL ACCEPT. PT ASKED THAT HOSPITAL FOLLOW UP ON HER MEDICAID APPLICATION THAT WAS STARTED TWO WEEKS AGO BY THE HOSPITAL. CM WAITING LEVEL 2 DONA SCREENING COMPLETION WELL ADMISSION DETERMINATION FROM [facility] [place] FOR PLACEMENT. CM TO FOLLOW UP WITH BUSINESS OFFICE TO CHECK ON STATUS OF MEDICAID APPLICATION. State Assessed Properties Director: Brock Chavez DCP- Discharge Planning Updated by [id number]: Brock Chavez on 04/14/19 5:[address] Patient Name: CHRISTINE NGUYEN Encounter No: [id number] : 1975 Primary Insurance: MEDICARE A & B Anticipated DC Date: Planned Disposition: Mcc Facility External Planned Provider: [facility] Discharge Planning Comments: CM RECEIVED NOTICE THAT PT WILL REQUIRE LEVEL 2 DONA SCREENING. PT CANNOT ADMIT TO ANY ALF IN THE [facility] UNTIL THIS IS DONE. IT MAY TAKE UP TO 9 BUSINESS DAYS TO COMPLETE. CM WAITING LEVEL 2 DONA SCREENING COMPLETION WELL ADMISSION DETERMINATION FROM [facility] [place] FOR PLACEMENT. State Assessed Properties Director: Brock Chavez DCP- Discharge Planning Updated by [id number]: Brock Chavez on 04/14/19 11:[address] Patient Name: CHRISTINE NGUYEN Encounter No: [id number] : 1975 Primary Insurance: MEDICARE A & B Anticipated DC Date: Planned Disposition: Mcc Facility External Planned Provider: [facility] Discharge Planning Comments: CM COMPLETED DONA SCREENING FORM, OBTAINED PT AND DOCTORS SIGNATURES. CM FAXED TO [employer] AT [phone] TO REQUEST ASSESSMENT DUE TO DIAGNOSIS OF BIPOLAR. CM WAITING DONA SCREENING COMPLETION WELL ADMISSION DETERMINATION FROM [facility] [place] FOR PLACEMENT. State Assessed Properties Director: Brock Chavez DCP- Discharge Planning Updated by [id number]: Brock Chavez on 04/13/19 4:[address] Patient Name: CHRISTINE NGUYEN Admission Status: ER Accout number: [id number] Admission Date: 04-12-2019 : 1975 Admission Diagnosis: Attending: MICHAEL BUCKLEY Current LOS: 1 Anticipated DC Date: Planned Disposition: Mcc Facility Primary Insurance: MEDICARE A & B PLANNED EXTERNAL PROVIDER: [facility] [place] Discharge Planning Comments: CM RECEIVED ORDER FOR "PT HAS NO WHERE TO GO." CM SPOKE TO DERIK BELLA OF [facility], WHO REPORTS HAVING OPEN INVESTIGATION BUT NO APS HOLD ON PATIENT AT THIS TIME. DERIK REPORTS PT HAS PLACEMENT AT [facility] IN [place] AND PROVIDED CONTACT INFORMATION FOR [facility] [place], TELEPHONE [phone]. CM CALLED [facility] AND LEFT MESSAGE ASKING FOR RETURN CALL. PT IN ROOM TO DISCUSS DISCHARGE PLANNING AND NEEDS. PT REPORTS SHE WAS LIVING AT FRIENDS HOMES WITH HER FIANCE AND NOW HAVE NO PLACE TO LIVE. PT REPORTS NEEDING ASSISTANCE WITH AMBULATION OVER DISTANCES AND HAS A WHEELCHAIR AT A FRIENDS HOUSE AND HER FAMILY HAS HER SHOWER CHAIR. PT HAS NO OTHER MEDICAL EQUIPENT AND NO EQUIPMENT PROVIDER PREFERENCE. PT HAS NO OUTSIDE SERVICES ASSISTING IN THE HOME. PT DOES NOT KNOW HOW ADULT PROTECTIVE SERVICES WAS CALLED BUT SUSPECTS IT WAS A FRIEND OR FAMILY MEMBER TO CALL AND PT REPORTS "THEY HAVE BEEN CALLED LOTS OF TIMES." CM DISCUSSED AVAILABILITY OF HOME HEALTH, REHAB SERVICES AND MEDICAL EQUIPMENT. PT HAS TALKED TO DERIK OF APS AND IS AGREEABLE TO PLACEMENT AT [facility] IN [place]. CHOICE SIGNED. CM FAXED REFERRAL FOR PLACEMENT TO [facility] [place] AT [phone]. CM WILL FOLLOW UP WITH CALL SIDDH[facility]TH [facility] [place] TOMORROW AND CM ANTICIPATES COMPLETING DONA SCREENING SOON POSSIBLE IF IT IS REQUIRED FOR PLACEMENT. State Assessed Properties Director: Brock Chavez DCPIA - Discharge Planning Initial Assessment Updated by [id number]: Brock Chavez on 04/13/19 5:22 pm * Is the patient Alert and Oriented? Yes * How many steps to enter\\exit or inside your home? NONE * PCP DR. NUR * Pharmacy [facility] * Preadmission Environment Home with Family * ADLs Independent * Equipment Shower Chair Wheelchair * Other Equipment NO MEDICAL EQUIPMENT PROVIDER PREFERENCE * List name and contact numbers for known caregivers / representatives who currently or will assist patient after discharge: BONILLA LEONARD'S SISTER, * Verbal permission to speak to the caregivers and representatives has been obtained from the patient. N/A * Community resources currently utilized None * Please name any agencies selected above. NONE * Additional services required to return to the preadmission environment? Yes * Can the patient safely return to the preadmission environment? Yes * Has this patient been hospitalized within the prior 30 days at any hospital? Yes External Providers [facility] Next Contact Date: 04/25/2019 Service Request Date: Service Type: Resolution: Reviewer: Comments: [facility] Next Contact Date: 04/25/2019 Service Request Date: Service Type: Resolution: Reviewer: Comments: [facility] Next Contact Date: 04/25/2019 Service Request Date: Service Type: Resolution: Reviewer: Comments: [facility] Next Contact Date: 04/25/2019 Service Request Date: Service Type: Resolution: Reviewer: Comments: Coverage Notice Reviewer: [id number] Sukumar Moreno Notice Issued Date-Time: 04/21/2019 16:13 Notice Type: Patient Choice Letter Notice Delivered To: Patient Relationship to Patient: Self Jersey Knitter Name: Delivery Method: HAND - Hand Delivered Lashonda Days: Prior Verbal Notification: Recipient Understood Notice: Yes Recipient Signature: Yes Med Rec Note Co-signed by Attending: Coverage Notice Comment: PATIENT CHOICE FORM FOR LONGTERM FACILITY SEARCH FOR ANY FACILITY BETWEEN [place]. CONSENT PER PATIENT'S INSTRUCTION. COPY TO THE PATIENT, COPY TO THE CHART, BOTH ORIGINALS Reviewer: [id number] - Brock Chavez Notice Issued Date-Time: 04/13/2019 16:20 Notice Type: Patient Choice Letter Notice Delivered To: Patient Relationship to Patient: Jersey Knitter Name: Delivery Method: HAND - Hand Delivered Lashonda Days: Prior Verbal Notification: Recipient Understood Notice: Yes Recipient Signature: Yes Med Rec Note Co-signed by Attending: Coverage Notice Comment: [facility] Reviewer: [id number] Sukumar Juares Notice Issued Date-Time: 04/13/2019 7:55 Notice Type: Medicare Outpatient Observation Notice Notice Delivered To: Patient Relationship to Patient: Jersey Knitter Name: Delivery Method: HAND - Hand Delivered Lashonda Days: Prior Verbal Notification: Recipient Understood Notice: Yes Recipient Signature: Yes Med Rec Note Co-signed by Attending: Coverage Notice Comment: PALMER SERVED, EXPLAINED, SIGNED BY PATIENT AND ORIGINAL PROVIDED AND COPY PLACED ON CHART. Last DP export: 04/25/19 9:32 am Patient Name: CHRISTINE NGUYEN Page 47740 at 1039 All edits/amendments must be made on the electronic document DICTATION DATE: 04/25/19 1039 HAIRSPRING INSPECTOR: KAYODE 04/25/19 1039 RPT#: [id number] DC DATE: STATUS: ADM IN [facility] [address] [place] [address] END OF REPORT
--- NOTE | 2019-04-25 10:47 | MORECARE ---
CASE MANAGEMENT DISCHARGE SUMMARY PATIENT: CHRISTINE NGUYEN UNIT: [id number] ADM DATE: 04/13/19 AGE: 43 : 73 SEX: F ROOM/BED: D.2103 AUTHOR: ARTIE,DOC PHYSICIAN: REFERRING PHYSICIAN: MICHAEL BUCKLEY DO DATE OF SERVICE: 04/25/19 Discharge Plan Patient Name: CHRISTINE NGUYEN Facility: [facility]:[place] : 1975 Planned Disposition: Halfway Facility Anticipated Discharge Date: Discharge Date: Expected LOS: Initial Reviewer: [id number] Initial Review Date: 04/13/2019 Generated: 04/25/19 11:46 am DCP- Discharge Planning Updated by [id number]: Chey Moreno on 04/21/19 2:[address] CM UPDATED THE PATIENT VIA TELEPHONE OF PENDING [place] ASSESSMENT AND [facility] DENIAL SECONDARY TO NO BEDS. SHE STATES SHE IS LOOKING FOR AN APARTMENT IN [place]. CM ADVISED SEARCH FOR SKILLED FACILITY MUST PROCEED. SHE STATES WE CAN SEARCH IN [place] ,[place] OR IN BETWEEN. DERIK MEJIA FROM [facility] IS FOLLOWING THIS PATIENT. NADIA MESSINA, HAS BEEN IN COMMUNICATION WITH HIM. NADIA CALLED [phone]. LEFT MESSAGE REQUESTING CALL BACK FOR ASSISTANCE WITH PLACEMENT. DCP- Discharge Planning Updated by [id number]: Chey Moreno on 04/21/19 2:[address] 1537 TELEPHONE CALL TO DARLYN HERNANDEZ, COUNTER CHECKER, TO ASCERTAIN IF LEVEL II DONA DECISION HAD BEEN FORWARDED VIA FAX. NO NOTIFICATION AT THIS TIME. DCP- Discharge Planning Updated by [id number]: Chey Moreno on 04/21/19 11:[address] TELEPHONE CALL TO [employer], SPOKE French/ CARMEN. SHE STATES [facility] SHOULD BE RECEIVING A LETTER THIS AFTERNOON REGARDING SECOND LEVEL DECISION. TELEPHONE CALL TO [employer]. SPOKE French/ EDWIN. APPLICATION HAS BEEN SUBMITTED. APPEARS SHE WILL QUALIFY FOR B MEDICAID WHICH MAY ACTIVATE April. DCP- Discharge Planning Updated by [id number]: Sylvia Silva on 04/21/19 11:[address] Patient Name: CHRISTINE NGUYEN Admission Status: ER Accout number: [id number] Admission Date: 04-13-2019 : 1975 Admission Diagnosis: Attending: MICHAEL BUCKLEY Current LOS: 8 Anticipated DC Date: Planned Disposition: Halfway Facility Primary Insurance: MEDICARE A & B Discharge Planning Comments: RECIEVED PHONE CALL FROM PARMJIT AT [facility] AND THEY HAVE DENIED PATIENT PLACEMENT BECAUSE OF NO BED AVAILABLE. ARIANNA DIAZ CM IS WORKING ON OTHER PLACEMENT. Public Administration Teacher: Sylvia Silva DCP- Discharge Planning Updated by [id number]: Brock Chavez on 04/18/19 5:[address] Patient Name: CHRISTINE NGUYEN Encounter No: [id number] : 1975 Primary Insurance: MEDICARE A & B Anticipated DC Date: Planned Disposition: Halfway Facility External Planned Provider: [facility] [place] Discharge Planning Comments: CM RECEIVED CALL FROM SYLVIA GODOY OF [employer], SHE WILL MEET WITH PT FOR THE LEVEL 2 DONA SCREENING TODAY. CM PRINTED DOCUMENTS TAMARILU BEE WILL NEED UPON HER ARRIVAL AND WILL PROVIDE THEM TO HER. CM CALLED [employer], LEFT DETAILED MESSAGE TO FOLLOW UP ON MEDICAID APPLICATION STATUS THAT PT REPORTS WAS STARTED TWO WEEKS AGO BY THE HOSPITAL. CM RECEIVED CALL FROM [employer] OF [facility], REQUSTING FAX UPDATE BEFORE NOON TOMORROW FOR COMMITTE REVIEW TOMORROW. CM WAITING LEVEL 2 DONA SCREENING COMPLETION WELL ADMISSION DETERMINATION FROM [facility] IN [place] FOR PLACEMENT. CM WAITING INFORMATION ON STATUS OF MEDICAID APPLICATION. Public Administration Teacher: Brock Chavez Appended by Brock Chavez on 04/18/2019 18:09 PLASTIC EXTRUSION OPERATOR: CM FAXED UPDATE TO [facility], . CM SPOKE TO WYATT OF [employer] WHO INFORMED CM THAT PT HAS APPLIED FOR SECONDARY MEDICAID "QMB" AND THERE IS NO DETERMINATION STATUS OF YET. CM WAITING LEVEL 2 DONA SCREENING COMPLETION WELL ADMISSION DETERMINATION FROM [facility] IN [place] FOR PLACEMENT. CM WAITING INFORMATION ON STATUS OF MEDICAID APPLICATION. Public Administration Teacher: Brock Chavez DCP- Discharge Planning Updated by [id number]: Brock Chavez on 04/15/19 5:[address] Patient Name: CHRISTINE NGUYEN Encounter No: [id number] : 1975 Primary Insurance: MEDICARE A & B Anticipated DC Date: Planned Disposition: Halfway Facility External Planned Provider: [facility] Discharge Planning Comments: CM RECEIVED REQUEST TO MEET WITH PT AND DAUGHTER IN ROOM. CHRISTINE NGUYEN provided verbal consent to discuss current and ongoing needs with/in the presence of: SIMONE GUTHRIE, . QUESTIONS ANSWERED. PT AND DAUGHTER IN AGREEMENT WITH PLACEMENT AT [facility] AND IF DECLINED, WILL GO TO ANY NURSING FACILITY THAT WILL ACCEPT. PT ASKED THAT HOSPITAL FOLLOW UP ON HER MEDICAID APPLICATION THAT WAS STARTED TWO WEEKS AGO BY THE HOSPITAL. CM WAITING LEVEL 2 DONA SCREENING COMPLETION WELL ADMISSION DETERMINATION FROM [facility] IN [place] FOR PLACEMENT. CM TO FOLLOW UP WITH BUSINESS OFFICE TO CHECK ON STATUS OF MEDICAID APPLICATION. Public Administration Teacher: Brock Chavez DCP- Discharge Planning Updated by [id number]: Brock Chavez on 04/14/19 5:[address] Patient Name: CHRISTINE NGUYEN Encounter No: [id number] : 1975 Primary Insurance: MEDICARE A & B Anticipated DC Date: Planned Disposition: Halfway Facility External Planned Provider: [facility] Discharge Planning Comments: CM RECEIVED NOTICE THAT PT WILL REQUIRE LEVEL 2 DONA SCREENING. PT CANNOT ADMIT TO ANY HALFWAY IN THE [facility] UNTIL THIS IS DONE. IT MAY TAKE UP TO 9 BUSINESS DAYS TO COMPLETE. CM WAITING LEVEL 2 DONA SCREENING COMPLETION WELL ADMISSION DETERMINATION FROM [facility] IN [place] FOR PLACEMENT. Public Administration Teacher: Brock Chavez DCP- Discharge Planning Updated by [id number]: Brock Chavez on 04/14/19 11:[address] Patient Name: CHRISTINE NGUYEN Encounter No: [id number] : 1975 Primary Insurance: MEDICARE A & B Anticipated DC Date: Planned Disposition: Halfway Facility External Planned Provider: [facility] Discharge Planning Comments: CM COMPLETED DONA SCREENING FORM, OBTAINED PT AND DOCTORS SIGNATURES. CM FAXED TO [employer] AT [phone] TO REQUEST ASSESSMENT DUE TO DIAGNOSIS OF BIPOLAR. CM WAITING DONA SCREENING COMPLETION WELL ADMISSION DETERMINATION FROM [facility] IN [place] FOR PLACEMENT. Public Administration Teacher: Brock Chavez DCP- Discharge Planning Updated by [id number]: Brock Chavez on 04/13/19 4:[address] Patient Name: CHRISTINE NGUYEN Admission Status: ER Accout number: [id number] Admission Date: 04-12-2019 : 1975 Admission Diagnosis: Attending: MICHAEL BUCKLEY Current LOS: 1 Anticipated DC Date: Planned Disposition: Halfway Facility Primary Insurance: MEDICARE A & B PLANNED EXTERNAL PROVIDER: [facility] [place] Discharge Planning Comments: CM RECEIVED ORDER FOR "PT HAS NO WHERE TO GO." CM SPOKE TO DERIK BELLA OF [facility], WHO REPORTS HAVING OPEN INVESTIGATION BUT NO APS HOLD ON PATIENT AT THIS TIME. DERIK REPORTS PT HAS PLACEMENT AT [facility] IN [place] AND PROVIDED CONTACT INFORMATION FOR [facility] [place], TELEPHONE [phone]. CM CALLED [facility] AND LEFT MESSAGE ASKING FOR RETURN CALL. PT IN ROOM TO DISCUSS DISCHARGE PLANNING AND NEEDS. PT REPORTS SHE WAS LIVING AT FRIENDS HOMES WITH HER FIANCE AND NOW HAVE NO PLACE TO LIVE. PT REPORTS NEEDING ASSISTANCE WITH AMBULATION OVER DISTANCES AND HAS A WHEELCHAIR AT A FRIENDS HOUSE AND HER FAMILY HAS HER SHOWER CHAIR. PT HAS NO OTHER MEDICAL EQUIPENT AND NO EQUIPMENT PROVIDER PREFERENCE. PT HAS NO OUTSIDE SERVICES ASSISTING IN THE HOME. PT DOES NOT KNOW HOW ADULT PROTECTIVE SERVICES WAS CALLED BUT SUSPECTS IT WAS A FRIEND OR FAMILY MEMBER TO CALL AND PT REPORTS "THEY HAVE BEEN CALLED LOTS OF TIMES." CM DISCUSSED AVAILABILITY OF HOME HEALTH, REHAB SERVICES AND MEDICAL EQUIPMENT. PT HAS TALKED TO DERIK OF APS AND IS AGREEABLE TO PLACEMENT AT [facility] IN [place]. CHOICE SIGNED. CM FAXED REFERRAL FOR PLACEMENT TO [facility] AT [phone]. CM WILL FOLLOW UP WITH CALL SIDDHARTH [facility] TOMORROW AND CM ANTICIPATES COMPLETING DONA SCREENING SOON POSSIBLE IF IT IS REQUIRED FOR PLACEMENT. Public Administration Teacher: Brock Chavez DCPIA - Discharge Planning Initial Assessment Updated by [id number]: Brock Chavez on 04/13/19 5:22 pm * Is the patient Alert and Oriented? Yes * How many steps to enter\\exit or inside your home? NONE * PCP DR. NUR * Pharmacy [facility] * Preadmission Environment Home with Family * ADLs Independent * Equipment Shower Chair Wheelchair * Other Equipment NO MEDICAL EQUIPMENT PROVIDER PREFERENCE * List name and contact numbers for known caregivers / representatives who currently or will assist patient after discharge: BONILLA LEONARD'S SISTER, * Verbal permission to speak to the caregivers and representatives has been obtained from the patient. N/A * Community resources currently utilized None * Please name any agencies selected above. NONE * Additional services required to return to the preadmission environment? Yes * Can the patient safely return to the preadmission environment? Yes * Has this patient been hospitalized within the prior 30 days at any hospital? Yes External Providers External Provider: OTHER-OTHER Next Contact Date: 04/25/2019 Service Request Date: Service Type: Resolution: Reviewer: Comments: External Provider: [facility] Next Contact Date: 04/25/2019 Service Request Date: Service Type: Resolution: Reviewer: Comments: Coverage Notice Reviewer: [id number] Sukumar Juares Notice Issued Date-Time: 04/13/2019 7:55 Notice Type: Medicare Outpatient Observation Notice Notice Delivered To: Patient Relationship to Patient: Shop Tech Name: Delivery Method: HAND - Hand Delivered Lashonda Days: Prior Verbal Notification: Recipient Understood Notice: Yes Recipient Signature: Yes Med Rec Note Co-signed by Attending: Coverage Notice Comment: SPENCER ROTH, EXPLAINED, SIGNED BY PATIENT AND ORIGINAL PROVIDED AND COPY PLACED ON CHART. Reviewer: [id number] - Brock Chavez Notice Issued Date-Time: 04/13/2019 16:20 Notice Type: Patient Choice Letter Notice Delivered To: Patient Relationship to Patient: Shop Tech Name: Delivery Method: HAND - Hand Delivered Lashonda Days: Prior Verbal Notification: Recipient Understood Notice: Yes Recipient Signature: Yes Med Rec Note Co-signed by Attending: Coverage Notice Comment: [facility] Reviewer: [id number] - Chey Moreno Notice Issued Date-Time: 04/21/2019 16:13 Notice Type: Patient Choice Letter Notice Delivered To: Patient Relationship to Patient: Self Shop Tech Name: Delivery Method: HAND - Hand Delivered Lashonda Days: Prior Verbal Notification: Recipient Understood Notice: Yes Recipient Signature: Yes Med Rec Note Co-signed by Attending: Coverage Notice Comment: PATIENT CHOICE FORM FOR [facility] FACILITY SEARCH FOR ANY FACILITY BETWEEN [place], [place] AND [place], [place]. CONSENT PER PATIENT'S INSTRUCTION. COPY TO THE PATIENT, COPY TO THE CHART, BOTH ORIGINALS Last DP export: 04/25/19 9:39 am Patient Name: CHRISTINE NGUYEN Page [id number] at 1047 All edits/amendments must be made on the electronic document DICTATION DATE: 04/25/19 1046 DIRECTOR INTERNAL AUDIT: KAYODE 04/25/19 1046 RPT#: [id number] DC DATE: STATUS: ADM IN [facility] [address] [place] [address] END OF REPORT
--- NOTE | 2019-04-25 10:55 | MORECARE ---
CASE MANAGEMENT DISCHARGE SUMMARY PATIENT: CHRISTINE NGUYEN UNIT: [id number] ADM DATE: 04/13/19 AGE: 43 : 73 SEX: F ROOM/BED: D.2106 AUTHOR: ARTIE,DOC PHYSICIAN: REFERRING PHYSICIAN: MICHAEL BUCKLEY DO DATE OF SERVICE: 04/25/19 Discharge Plan Patient Name: CHRISTINE NGUYEN Facility: [facility]:[place] : 1975 Planned Disposition: Jail Facility Anticipated Discharge Date: Discharge Date: Expected LOS: Initial Reviewer: [id number] Initial Review Date: 04/13/2019 Generated: 04/25/19 11:54 am DCP- Discharge Planning Updated by [id number]: Chey Moreno on 04/21/19 2:[address] CM UPDATED THE PATIENT VIA TELEPHONE OF PENDING [place] ASSESSMENT AND [facility] DENIAL SECONDARY TO NO BEDS. SHE STATES SHE IS LOOKING FOR AN APARTMENT IN [place]. CM ADVISED SEARCH FOR SKILLED FACILITY MUST PROCEED. SHE STATES WE CAN SEARCH IN [place] ,[place] OR IN BETWEEN. DERIK MEJIA FROM [facility] [employer] [employer] IS FOLLOWING THIS PATIENT. NADIA MESSINA, HAS BEEN IN COMMUNICATION WITH HIM. NADIA CALLED [phone]. LEFT MESSAGE REQUESTING CALL BACK FOR ASSISTANCE WITH PLACEMENT. DCP- Discharge Planning Updated by [id number]: Chey Moreno on 04/21/19 2:[address] 1531 TELEPHONE CALL TO DARLYN HERNANDEZ, PRINTED CIRCUIT BOARD DRAFTER, TO ASCERTAIN IF LEVEL II DONA DECISION HAD BEEN FORWARDED VIA FAX. NO NOTIFICATION AT THIS TIME. DCP- Discharge Planning Updated by [id number]: Chey Moreno on 04/21/19 11:[address] TELEPHONE CALL TO [employer], SPOKE French/ CARMEN. SHE STATES [facility] SHOULD BE RECEIVING A LETTER THIS AFTERNOON REGARDING SECOND LEVEL DECISION. TELEPHONE CALL TO [employer]. SPOKE French/ EDWIN. APPLICATION HAS BEEN SUBMITTED. APPEARS SHE WILL QUALIFY FOR B MEDICAID WHICH MAY ACTIVATE April. DCP- Discharge Planning Updated by [id number]: Sylvia Silva on 04/21/19 11:[address] Patient Name: CHRISTINE NGUYEN Admission Status: ER Accout number: [id number] Admission Date: 04-13-2019 : 1975 Admission Diagnosis: Attending: MICHAEL BUCKLEY Current LOS: 8 Anticipated DC Date: Planned Disposition: Jail Facility Primary Insurance: MEDICARE A & B Discharge Planning Comments: RECIEVED PHONE CALL FROM PARMJIT AT [facility] AND THEY HAVE DENIED PATIENT PLACEMENT BECAUSE OF NO BED AVAILABLE. ARIANNA DIAZ CM IS WORKING ON OTHER PLACEMENT. Card Room Manager: Sylvia Silva DCP- Discharge Planning Updated by [id number]: Brock Chavez on 04/18/19 5:[address] Patient Name: CHRISTINE NGUYEN Encounter No: [id number] : 1975 Primary Insurance: MEDICARE A & B Anticipated DC Date: Planned Disposition: Jail Facility External Planned Provider: [facility], [place] Discharge Planning Comments: CM RECEIVED CALL FROM SYLVIA GODOY OF [employer], SHE WILL MEET WITH PT FOR THE LEVEL 2 DONA SCREENING TODAY. CM PRINTED DOCUMENTS TAMARILU BEE WILL NEED UPON HER ARRIVAL AND WILL PROVIDE THEM TO HER. CM CALLED [email or web address], LEFT DETAILED MESSAGE TO FOLLOW UP ON MEDICAID APPLICATION STATUS THAT PT REPORTS WAS STARTED TWO WEEKS AGO BY THE HOSPITAL. CM RECEIVED CALL FROM YVROSE OF [facility], REQUSTING FAX UPDATE BEFORE NOON TOMORROW FOR COMMITTE REVIEW TOMORROW. CM WAITING LEVEL 2 DONA SCREENING COMPLETION WELL ADMISSION DETERMINATION FROM [facility] IN [place] FOR PLACEMENT. CM WAITING INFORMATION ON STATUS OF MEDICAID APPLICATION. Card Room Manager: Brock Chavez Appended by Brock Chavez on 04/18/2019 18:09 INSURANCE CHECKER: CM FAXED UPDATE TO [facility], . CM SPOKE TO WYATT OF [employer] WHO INFORMED CM THAT PT HAS APPLIED FOR SECONDARY MEDICAID "QMB" AND THERE IS NO DETERMINATION STATUS OF YET. CM WAITING LEVEL 2 DONA SCREENING COMPLETION WELL ADMISSION DETERMINATION FROM [facility] IN [place] FOR PLACEMENT. CM WAITING INFORMATION ON STATUS OF MEDICAID APPLICATION. Card Room Manager: Brock Chavez DCP- Discharge Planning Updated by [id number]: Brock Chavez on 04/15/19 5:[address] Patient Name: CHRISTINE NGUYEN Encounter No: [id number] : 1975 Primary Insurance: MEDICARE A & B Anticipated DC Date: Planned Disposition: Jail Facility External Planned Provider: [facility] Discharge Planning Comments: CM RECEIVED REQUEST TO MEET WITH PT AND DAUGHTER IN ROOM. CHRISTINE NGUYEN provided verbal consent to discuss current and ongoing needs with/in the presence of: SIMONE GUTHRIE, . QUESTIONS ANSWERED. PT AND DAUGHTER IN AGREEMENT WITH PLACEMENT AT [facility] AND IF DECLINED, WILL GO TO ANY NURSING FACILITY THAT WILL ACCEPT. PT ASKED THAT HOSPITAL FOLLOW UP ON HER MEDICAID APPLICATION THAT WAS STARTED TWO WEEKS AGO BY THE HOSPITAL. CM WAITING LEVEL 2 DONA SCREENING COMPLETION WELL ADMISSION DETERMINATION FROM [facility] IN [place] FOR PLACEMENT. CM TO FOLLOW UP WITH BUSINESS OFFICE TO CHECK ON STATUS OF MEDICAID APPLICATION. Card Room Manager: Brock Chavez DCP- Discharge Planning Updated by [id number]: Brock Chavez on 04/14/19 5:[address] Patient Name: CHRISTINE NGUYEN Encounter No: [id number] : 1975 Primary Insurance: MEDICARE A & B Anticipated DC Date: Planned Disposition: Jail Facility External Planned Provider: [facility] Discharge Planning Comments: CM RECEIVED NOTICE THAT PT WILL REQUIRE LEVEL 2 DONA SCREENING. PT CANNOT ADMIT TO ANY SHELTER IN THE [facility] UNTIL THIS IS DONE. IT MAY TAKE UP TO 9 BUSINESS DAYS TO COMPLETE. CM WAITING LEVEL 2 DONA SCREENING COMPLETION WELL ADMISSION DETERMINATION FROM [facility] IN [place] FOR PLACEMENT. Card Room Manager: Brock Chavez DCP- Discharge Planning Updated by [id number]: Brock Chavez on 04/14/19 11:[address] Patient Name: CHRISTINE NGUYEN Encounter No: [id number] : 1975 Primary Insurance: MEDICARE A & B Anticipated DC Date: Planned Disposition: Jail Facility External Planned Provider: [facility] Discharge Planning Comments: CM COMPLETED DONA SCREENING FORM, OBTAINED PT AND DOCTORS SIGNATURES. CM FAXED TO [employer] AT [phone] TO REQUEST ASSESSMENT DUE TO DIAGNOSIS OF BIPOLAR. CM WAITING DONA SCREENING COMPLETION WELL ADMISSION DETERMINATION FROM [facility] IN [place] FOR PLACEMENT. Card Room Manager: Brock Chavez DCP- Discharge Planning Updated by [id number]: Brock Chavez on 04/13/19 4:[address] Patient Name: CHRISTINE NGUYEN Admission Status: ER Accout number: [id number] Admission Date: 04-12-2019 : 1975 Admission Diagnosis: Attending: MICHAEL BUCKLEY Current LOS: 1 Anticipated DC Date: Planned Disposition: Jail Facility Primary Insurance: MEDICARE A & B PLANNED EXTERNAL PROVIDER: [facility], [place] Discharge Planning Comments: CM RECEIVED ORDER FOR "PT HAS NO WHERE TO GO." CM SPOKE TO DERIK BELLA OF [facility], WHO REPORTS HAVING OPEN INVESTIGATION BUT NO APS HOLD ON PATIENT AT THIS TIME. DERIK REPORTS PT HAS PLACEMENT AT [facility] IN [place] AND PROVIDED CONTACT INFORMATION FOR [facility] DUM[facility], TELEPHONE [phone]. CM CALLED KASHMIR AND LEFT MESSAGE ASKING FOR RETURN CALL. PT IN ROOM TO DISCUSS DISCHARGE PLANNING AND NEEDS. PT REPORTS SHE WAS LIVING AT FRIENDS HOMES WITH HER FIANCE AND NOW HAVE NO PLACE TO LIVE. PT REPORTS NEEDING ASSISTANCE WITH AMBULATION OVER DISTANCES AND HAS A WHEELCHAIR AT A FRIENDS HOUSE AND HER FAMILY HAS HER SHOWER CHAIR. PT HAS NO OTHER MEDICAL EQUIPENT AND NO EQUIPMENT PROVIDER PREFERENCE. PT HAS NO OUTSIDE SERVICES ASSISTING IN THE HOME. PT DOES NOT KNOW HOW ADULT PROTECTIVE SERVICES WAS CALLED BUT SUSPECTS IT WAS A FRIEND OR FAMILY MEMBER TO CALL AND PT REPORTS "THEY HAVE BEEN CALLED LOTS OF TIMES." CM DISCUSSED AVAILABILITY OF HOME HEALTH, REHAB SERVICES AND MEDICAL EQUIPMENT. PT HAS TALKED TO DERIK OF APS AND IS AGREEABLE TO PLACEMENT AT [facility] IN [place]. CHOICE SIGNED. CM FAXED REFERRAL FOR PLACEMENT TO KASHMIR DUMONT AT [phone]. CM WILL FOLLOW UP WITH CALL SIDDHARTH KASHMIR DUMONT TOMORROW AND CM ANTICIPATES COMPLETING DONA SCREENING SOON POSSIBLE IF IT IS REQUIRED FOR PLACEMENT. Card Room Manager: Brock Chavez DCPIA - Discharge Planning Initial Assessment Updated by [id number]: Brock Chavez on 04/13/19 5:22 pm * Is the patient Alert and Oriented? Yes * How many steps to enter\\exit or inside your home? NONE * PCP DR. NUR * Pharmacy [facility] * Preadmission Environment Home with Family * ADLs Independent * Equipment Shower Chair Wheelchair * Other Equipment NO MEDICAL EQUIPMENT PROVIDER PREFERENCE * List name and contact numbers for known caregivers / representatives who currently or will assist patient after discharge: BONILLA LEONARD'S SISTER, * Verbal permission to speak to the caregivers and representatives has been obtained from the patient. N/A * Community resources currently utilized None * Please name any agencies selected above. NONE * Additional services required to return to the preadmission environment? Yes * Can the patient safely return to the preadmission environment? Yes * Has this patient been hospitalized within the prior 30 days at any hospital? Yes External Providers External Provider: [facility] Next Contact Date: 04/25/2019 Service Request Date: Service Type: Resolution: Reviewer: Comments: Coverage Notice Reviewer: [id number] Sukumar Moreno Notice Issued Date-Time: 04/21/2019 16:13 Notice Type: Patient Choice Letter Notice Delivered To: Patient Relationship to Patient: Self Registration Coordinator Name: Delivery Method: HAND - Hand Delivered Lashonda Days: Prior Verbal Notification: Recipient Understood Notice: Yes Recipient Signature: Yes Med Rec Note Co-signed by Attending: Coverage Notice Comment: PATIENT CHOICE FORM FOR [facility]PC FACILITY SEARCH FOR ANY FACILITY BETWEEN [place], [place] AND [place], [place]. CONSENT PER PATIENT'S INSTRUCTION. COPY TO THE PATIENT, COPY TO THE CHART, BOTH ORIGINALS Reviewer: [id number] - Brock Chavez Notice Issued Date-Time: 04/13/2019 16:20 Notice Type: Patient Choice Letter Notice Delivered To: Patient Relationship to Patient: Registration Coordinator Name: Delivery Method: HAND - Hand Delivered Lashonda Days: Prior Verbal Notification: Recipient Understood Notice: Yes Recipient Signature: Yes Med Rec Note Co-signed by Attending: Coverage Notice Comment: [facility] Reviewer: [id number] Sukumar Juares Notice Issued Date-Time: 04/13/2019 7:55 Notice Type: Medicare Outpatient Observation Notice Notice Delivered To: Patient Relationship to Patient: Registration Coordinator Name: Delivery Method: HAND - Hand Delivered Lashonda Days: Prior Verbal Notification: Recipient Understood Notice: Yes Recipient Signature: Yes Med Rec Note Co-signed by Attending: Coverage Notice Comment: SPENCER SERVED, EXPLAINED, SIGNED BY PATIENT AND ORIGINAL PROVIDED AND COPY PLACED ON CHART. Last DP export: 04/25/19 9:47 am Patient Name: CHRISTINE NGUYEN Page [id number] at 1055 All edits/amendments must be made on the electronic document DICTATION DATE: 04/25/191053 WELDER PRODUCTION LINE GAS: KAYODE 04/25/19 105 RPT#: [id number] DC DATE: STATUS: ADM IN [facility] [address] [place] [address] END OF REPORT
--- NOTE | 2019-04-25 11:02 | MORECARE ---
CASE MANAGEMENT DISCHARGE SUMMARY PATIENT: CHRISTINE NGUYEN UNIT: [id number] ADM DATE: 04/13/19 AGE: 43 : 73 SEX: F ROOM/BED: D.3441 AUTHOR: ARTIE,DOC PHYSICIAN: REFERRING PHYSICIAN: MICHAEL BUCKLEY DO DATE OF SERVICE: 04/25/19 Discharge Plan Patient Name: CHRISTINE NGUYEN Facility: [facility]:[place] : 1975 Planned Disposition: Care Home Facility Anticipated Discharge Date: Discharge Date: Expected LOS: Initial Reviewer: [id number] Initial Review Date: 04/13/2019 Generated: 04/25/19 12:01 pm Comments DCP- Discharge Planning Updated by [id number]: Brock Cahvez on 04/25/19 10:[address] Patient Name: CHRISTINE NGUYEN Encounter No: [id number] : 1975 Primary Insurance: MEDICARE A & B Anticipated DC Date: Planned Disposition: Care Home Facility External Planned Provider: [facility] ACCEPTING [facility]ED [facility], MEDICARE REHAB BED DCP follow-up note: CM RECEIVED [employer] SCREENING APPROVAL FOR UP TO 60 DAYS IN [facility] FACILITY. COPY TO CHART. CHART REVIEWED. CM FAXED REFERRALS FOR REHAB TO [facility] TO THE FOLLOWING FACILITIES: [facility] (AND ANY OTHER [facility] WITH [facility]), [facility], [facility] AND [facility]. Brock Chavez DCP- Discharge Planning Updated by [id number]: Chey Moreno on 04/21/19 2:[address] CM UPDATED THE PATIENT VIA TELEPHONE OF PENDING DONA ASSESSMENT AND [facility] DENIAL SECONDARY TO NO BEDS. SHE STATES SHE IS LOOKING FOR AN APARTMENT IN [place]. CM ADVISED SEARCH FOR SKILLED FACILITY MUST PROCEED. SHE STATES WE CAN SEARCH IN [place] ,[place] OR IN BETWEEN. DERIK MEJIA FROM [facility] [employer] IS FOLLOWING THIS PATIENT. NADIA MESSINA, HAS BEEN IN COMMUNICATION WITH HIM. NADIA CALLED [phone]. LEFT MESSAGE REQUESTING CALL BACK FOR ASSISTANCE WITH PLACEMENT. DCP- Discharge Planning Updated by [id number]: Chey Moreno on 04/21/19 2:[address] 1535 TELEPHONE CALL TO DARLYN HERNANDEZ, STATION ENGINEER MAIN LINE, TO ASCERTAIN IF LEVEL II DONA DECISION HAD BEEN FORWARDED VIA FAX. NO NOTIFICATION AT THIS TIME. DCP- Discharge Planning Updated by [id number]: Chey Moreno on 04/21/19 11:[address] TELEPHONE CALL TO [employer], SPOKE French/ CARMEN. SHE STATES [facility] SHOULD BE RECEIVING A LETTER THIS AFTERNOON REGARDING SECOND LEVEL DECISION. TELEPHONE CALL TO [employer]. SPOKE French/ EDWIN. APPLICATION HAS BEEN SUBMITTED. APPEARS SHE WILL QUALIFY FOR QMB MEDICAID WHICH MAY ACTIVATE April. DCP- Discharge Planning Updated by [id number]: Sylvia Silva on 04/21/19 11:[address] Patient Name: CHRISTINE NGUYEN Admission Status: ER Accout number: [id number] Admission Date: 04-13-2019 : 1975 Admission Diagnosis: Attending: MICHAEL BUCKLEY Current LOS: 8 Anticipated DC Date: Planned Disposition: Care Home Facility Primary Insurance: MEDICARE A & B Discharge Planning Comments: RECIEVED PHONE CALL FROM PARMJIT AT [facility] AND THEY HAVE DENIED PATIENT PLACEMENT BECAUSE OF NO BED AVAILABLE. ARIANNA DIAZ CM IS WORKING ON OTHER PLACEMENT. Black Jack Dealer: Sylvia Silva DCP- Discharge Planning Updated by [id number]: Brock Chavez on 04/18/19 5:[address] Patient Name: CHRISTINE NGUYEN Encounter No: [id number] : 1975 Primary Insurance: MEDICARE A & B Anticipated DC Date: Planned Disposition: Care Home Facility External Planned Provider: [facility] Discharge Planning Comments: CM RECEIVED CALL FROM SYLVIA GODOY OF [employer], SHE WILL MEET WITH PT FOR THE LEVEL 2 DONA SCREENING TODAY. CM PRINTED DOCUMENTS JUANY BEE WILL NEED UPON HER ARRIVAL AND WILL PROVIDE THEM TO HER. CM CALLED WYATT OF [employer], LEFT DETAILED MESSAGE TO FOLLOW UP ON MEDICAID APPLICATION STATUS THAT PT REPORTS WAS STARTED TWO WEEKS AGO BY THE HOSPITAL. CM RECEIVED CALL FROM YVROSE OF [facility], REQUSTING FAX UPDATE BEFORE NOON TOMORROW FOR COMMITTE REVIEW TOMORROW. CM WAITING LEVEL 2 DONA SCREENING COMPLETION WELL ADMISSION DETERMINATION FROM [facility] IN [place] FOR PLACEMENT. CM WAITING INFORMATION ON STATUS OF MEDICAID APPLICATION. Black Jack Dealer: Brock Chavez Appended by Brock Chavez on 04/18/2019 18:09 SALES CONTRACTOR: CM FAXED UPDATE TO [facility], . CM SPOKE TO WYATT [employer] WHO INFORMED CM THAT PT HAS APPLIED FOR SECONDARY MEDICAID "QMB" AND THERE IS NO DETERMINATION STATUS OF YET. CM WAITING LEVEL 2 DONA SCREENING COMPLETION WELL ADMISSION DETERMINATION FROM [facility] FOR PLACEMENT. CM WAITING INFORMATION ON STATUS OF MEDICAID APPLICATION. Black Jack Dealer: Brock Chavez DCP- Discharge Planning Updated by [id number]: Brock Chavez on 04/15/19 5:[address] Patient Name: CHRISTINE NGUYEN Encounter No: [id number] : 1975 Primary Insurance: MEDICARE A & B Anticipated DC Date: Planned Disposition: Care Home Facility External Planned Provider: [facility] Discharge Planning Comments: CM RECEIVED REQUEST TO MEET WITH PT AND DAUGHTER IN ROOM. CHRISTINE NGUYEN provided verbal consent to discuss current and ongoing needs with/in the presence of: SIMONE GUTHRIE, . QUESTIONS ANSWERED. PT AND DAUGHTER IN AGREEMENT WITH PLACEMENT AT [facility] AND IF DECLINED, WILL GO TO ANY NURSING FACILITY THAT WILL ACCEPT. PT ASKED THAT HOSPITAL FOLLOW UP ON HER MEDICAID APPLICATION THAT WAS STARTED TWO WEEKS AGO BY THE HOSPITAL. CM WAITING LEVEL 2 DONA SCREENING COMPLETION WELL ADMISSION DETERMINATION FROM [facility] FOR PLACEMENT. CM TO FOLLOW UP WITH BUSINESS OFFICE TO CHECK ON STATUS OF MEDICAID APPLICATION. Black Jack Dealer: Brock Chavez DCP- Discharge Planning Updated by [id number]: Brock Chavez on 04/14/19 5:[address] Patient Name: CHRISTINE NGUYEN Encounter No: [id number] : 1975 Primary Insurance: MEDICARE A & B Anticipated DC Date: Planned Disposition: Care Home Facility External Planned Provider: [facility] Discharge Planning Comments: CM RECEIVED NOTICE THAT PT WILL REQUIRE LEVEL 2 DONA SCREENING. PT CANNOT ADMIT TO ANY SHELTER IN THE [facility] UNTIL THIS IS DONE. IT MAY TAKE UP TO 9 BUSINESS DAYS TO COMPLETE. CM WAITING LEVEL 2 DONA SCREENING COMPLETION WELL ADMISSION DETERMINATION FROM [facility] FOR PLACEMENT. Black Jack Dealer: Brock Chavez DCP- Discharge Planning Updated by [id number]: Brock Chavez on 04/14/19 11:[address] Patient Name: CHRISTINE NGUYEN Encounter No: [id number] : 1975 Primary Insurance: MEDICARE A & B Anticipated DC Date: Planned Disposition: Care Home Facility External Planned Provider: [facility] Discharge Planning Comments: CM COMPLETED DONA SCREENING FORM, OBTAINED PT AND DOCTORS SIGNATURES. CM FAXED TO [employer] AT [phone] TO REQUEST ASSESSMENT DUE TO DIAGNOSIS OF BIPOLAR. CM WAITING DONA SCREENING COMPLETION WELL ADMISSION DETERMINATION FROM [facility] IN [place] FOR PLACEMENT. Black Jack Dealer: Brock Chavez DCP- Discharge Planning Updated by [id number]: Brock Chavez on 04/13/19 4:[address] Patient Name: CHRISTINE NGUYEN Admission Status: ER Accout number: [id number] Admission Date: 04-12-2019 : 1975 Admission Diagnosis: Attending: MICHAEL BUCKLEY Current LOS: 1 Anticipated DC Date: Planned Disposition: Care Home Facility Primary Insurance: MEDICARE A & B PLANNED EXTERNAL PROVIDER: [facility] Discharge Planning Comments: CM RECEIVED ORDER FOR "PT HAS NO WHERE TO GO." CM SPOKE TO DERIK BELLA OF [facility], WHO REPORTS HAVING OPEN INVESTIGATION BUT NO APS HOLD ON PATIENT AT THIS TIME. DERIK REPORTS PT HAS PLACEMENT AT [facility] IN [place] AND PROVIDED CONTACT INFORMATION FOR [facility]UM[facility], TELEPHONE [phone]. CM CALLED KASHMIR AND LEFT MESSAGE ASKING FOR RETURN CALL. PT IN ROOM TO DISCUSS DISCHARGE PLANNING AND NEEDS. PT REPORTS SHE WAS LIVING AT FRIENDS HOMES WITH HER FIANCE AND NOW HAVE NO PLACE TO LIVE. PT REPORTS NEEDING ASSISTANCE WITH AMBULATION OVER DISTANCES AND HAS A WHEELCHAIR AT A FRIENDS HOUSE AND HER FAMILY HAS HER SHOWER CHAIR. PT HAS NO OTHER MEDICAL EQUIPENT AND NO EQUIPMENT PROVIDER PREFERENCE. PT HAS NO OUTSIDE SERVICES ASSISTING IN THE HOME. PT DOES NOT KNOW HOW ADULT PROTECTIVE SERVICES WAS CALLED BUT SUSPECTS IT WAS A FRIEND OR FAMILY MEMBER TO CALL AND PT REPORTS "THEY HAVE BEEN CALLED LOTS OF TIMES." CM DISCUSSED AVAILABILITY OF HOME HEALTH, REHAB SERVICES AND MEDICAL EQUIPMENT. PT HAS TALKED TO DERIK OF APS AND IS AGREEABLE TO PLACEMENT AT [facility] IN [place]. CHOICE SIGNED. CM FAXED REFERRAL FOR PLACEMENT TO KASHMIR DUMONT AT [phone]. CM WILL FOLLOW UP WITH CALL SIDDHARTH KASHMIR DUMONT TOMORROW AND CM ANTICIPATES COMPLETING DONA SCREENING SOON POSSIBLE IF IT IS REQUIRED FOR PLACEMENT. Black Jack Dealer: Brock Chavez DCPIA - Discharge Planning Initial Assessment Updated by [id number]: Brock Chavez on 04/13/19 5:22 pm * Is the patient Alert and Oriented? Yes * How many steps to enter\\exit or inside your home? NONE * PCP DR. NUR * Pharmacy [facility] * Preadmission Environment Home with Family * ADLs Independent * Equipment Shower Chair Wheelchair * Other Equipment NO MEDICAL EQUIPMENT PROVIDER PREFERENCE * List name and contact numbers for known caregivers / representatives who currently or will assist patient after discharge: BONILLA LEONARD'S SISTER, * Verbal permission to speak to the caregivers and representatives has been obtained from the patient. N/A * Community resources currently utilized None * Please name any agencies selected above. NONE * Additional services required to return to the preadmission environment? Yes * Can the patient safely return to the preadmission environment? Yes * Has this patient been hospitalized within the prior 30 days at any hospital? Yes External Providers External Provider: [facility] Next Contact Date: 04/25/2019 Service Request Date: Service Type: Resolution: Reviewer: Comments: Coverage Notice Reviewer: [id number] Sukumar Juares Notice Issued Date-Time: 04/13/2019 7:55 Notice Type: Medicare Outpatient Observation Notice Notice Delivered To: Patient Relationship to Patient: Portable Canteen Operator Name: Delivery Method: HAND - Hand Delivered Lashonda Days: Prior Verbal Notification: Recipient Understood Notice: Yes Recipient Signature: Yes Med Rec Note Co-signed by Attending: Coverage Notice Comment: SPENCER SERVED, EXPLAINED, SIGNED BY PATIENT AND ORIGINAL PROVIDED AND COPY PLACED ON CHART. Reviewer: [id number] - Brock Chavez Notice Issued Date-Time: 04/13/2019 16:20 Notice Type: Patient Choice Letter Notice Delivered To: Patient Relationship to Patient: Portable Canteen Operator Name: Delivery Method: HAND - Hand Delivered Lashonda Days: Prior Verbal Notification: Recipient Understood Notice: Yes Recipient Signature: Yes Med Rec Note Co-signed by Attending: Coverage Notice Comment: [facility] Reviewer: [id number] Sukumar AcevesCheysherlyn Alfaros Notice Issued Date-Time: 04/21/2019 16:13 Notice Type: Patient Choice Letter Notice Delivered To: Patient Relationship to Patient: Self Portable Canteen Operator Name: Delivery Method: HAND - Hand Delivered Lashonda Days: Prior Verbal Notification: Recipient Understood Notice: Yes Recipient Signature: Yes Med Rec Note Co-signed by Attending: Coverage Notice Comment: PATIENT CHOICE FORM FOR [facility] FACILITY SEARCH FOR ANY FACILITY BETWEEN [place], [place] AND [place], [place]. CONSENT PER PATIENT'S INSTRUCTION. COPY TO THE PATIENT, COPY TO THE CHART, BOTH ORIGINALS Last DP export: 04/25/19 9:55 am Patient Name: CHRISTINE NGUYEN Page [id number] at 1102 All edits/amendments must be made on the electronic document DICTATION DATE: 04/25/19 1101 MAGAZINE JOURNALIST: KAYODE 04/25/19 1101 RPT#: [id number] DC DATE: STATUS: ADM IN [facility] [address] [place] [address] END OF REPORT
--- NOTE | 2019-04-25 11:40 | MORECARE ---
CASE MANAGEMENT DISCHARGE SUMMARY PATIENT: CHRISTINE NGUEYN UNIT: [id number] ADM DATE: 04/13/19 AGE: 43 : [birth year] SEX: F ROOM/BED: D.9747 AUTHOR: ARTIE,DOC PHYSICIAN: REFERRING PHYSICIAN: MICHAEL BUCKLEY DO DATE OF SERVICE: 04/25/19 Discharge Plan Patient Name: CHRISTINE NGUYEN Facility[facility]:[place] : 1975 Planned Disposition: Care Home Facility Anticipated Discharge Date: Discharge Date: Expected LOS: Initial Reviewer: [id number] Initial Review Date: 04/13/2019 Generated: 04/25/19 12:40 pm Comments DCP- Discharge Planning Updated by [id number]: Brock Chavez on 04/25/19 10:[address] Patient Name: CHRISTINE NGUYEN Encounter No: [id number] : 1975 Primary Insurance: MEDICARE A & B Anticipated DC Date: Planned Disposition: Care Home Facility External Planned Provider: FIRST ACCEPTING [facility]ED [facility], MEDICARE REHAB BED DCP follow-up note: CM RECEIVED DONA SCREENING APPROVAL FOR UP TO 60 DAYS IN [facility] FACILITY. COPY TO CHART. CHART REVIEWED. CM FAXED REFERRALS FOR REHAB TO BUS SYSTEM OPERATOR CARE TO THE FOLLOWING FACILITIES: [facility] (AND ANY OTHER [facility] FACILITY [facility]FFILIATED WITH [facility]), [facility], [facility] (AND ANY OTHER [facility] FACILITY AFFILIATED WITH NURSING CONSULTANTS), [facility], [facility], [facility], [facility] [place], [facility] AND [facility]. DONA APPROVED FOR 60 DAYS IN SHELTER FACILITY. THERE IS NO BED AVAILABLE AT [facility]. CM WAITING ON ADMISSION DETERMATION FROM ANY FACILITY FOR REHAB TO BUS SYSTEM OPERATOR CARE PLACEMENT. Brock Chavez, CASE MANAGEMENT DCP- Discharge Planning Updated by [id number]: Chey Moreno on 04/21/19 2:[address] CM UPDATED THE PATIENT VIA TELEPHONE OF PENDING DONA ASSESSMENT AND [facility] DENIAL SECONDARY TO NO BEDS. SHE STATES SHE IS LOOKING FOR AN APARTMENT IN [place]. CM ADVISED SEARCH FOR SKILLED FACILITY MUST PROCEED. SHE STATES WE CAN SEARCH IN [place] ,[place] OR IN BETWEEN. DERIK MEJIA FROM [facility] IS FOLLOWING THIS PATIENT. NADIA MESSINA, HAS BEEN IN COMMUNICATION WITH HIM. NADIA CALLED [phone]. LEFT MESSAGE REQUESTING CALL BACK FOR ASSISTANCE WITH PLACEMENT. DCP- Discharge Planning Updated by [id number]: Chey Moreno on 04/21/19 2:[address] 1535 TELEPHONE CALL TO DARLYN HERNANDEZ, WORLD HISTORY TEACHER, TO ASCERTAIN IF LEVEL II DONA DECISION HAD BEEN FORWARDED VIA FAX. NO NOTIFICATION AT THIS TIME. DCP- Discharge Planning Updated by [id number]: Chey Moreno on 04/21/19 11:[address] TELEPHONE CALL TO [facility], SPOKE French/ CARMEN. SHE STATES [facility] SHOULD BE RECEIVING A LETTER THIS AFTERNOON REGARDING SECOND LEVEL DECISION. TELEPHONE CALL TO [employer]. SPOKE W/ EDWIN. APPLICATION HAS BEEN SUBMITTED. APPEARS SHE WILL QUALIFY FOR B MEDICAID WHICH MAY ACTIVATE April. DCP- Discharge Planning Updated by [id number]: Sylvia Silva on 04/21/19 11:[address] Patient Name: CHRISTINE NGUYEN Admission Status: ER Accout number: [id number] Admission Date: 04-13-2019 : 1975 Admission Diagnosis: Attending: MICHAEL BUCKLEY Current LOS: 8 Anticipated DC Date: Planned Disposition: Care Home Facility Primary Insurance: MEDICARE A & B Discharge Planning Comments: RECIEVED PHONE CALL FROM PARMJIT AT [facility] AND THEY HAVE DENIED PATIENT PLACEMENT BECAUSE OF NO BED AVAILABLE. ARIANNA DIAZ CM IS WORKING ON OTHER PLACEMENT. Clinical Data Programmer: Sylvia Silva DCP- Discharge Planning Updated by [id number]: Brock Chavez on 04/18/19 5:[address] Patient Name: CHRISTINE NGUYEN Encounter No: [id number] : 1975 Primary Insurance: MEDICARE A & B Anticipated DC Date: Planned Disposition: Care Home Facility External Planned Provider: [facility], [place] Discharge Planning Comments: CM RECEIVED CALL FROM SYLVIA GODOY OF [facility], SHE WILL MEET WITH PT FOR THE LEVEL 2 DONA SCREENING TODAY. CM PRINTED DOCUMENTS TAHT SYLVIA WILL NEED UPON HER ARRIVAL AND WILL PROVIDE THEM TO HER. CM CALLED WYATT OF [employer], LEFT DETAILED MESSAGE TO FOLLOW UP ON MEDICAID APPLICATION STATUS THAT PT REPORTS WAS STARTED TWO WEEKS AGO BY THE HOSPITAL. CM RECEIVED CALL FROM YVROSE OF [facility], REQUSTING FAX UPDATE BEFORE NOON TOMORROW FOR COMMITTE REVIEW TOMORROW. CM WAITING LEVEL 2 DONA SCREENING COMPLETION WELL ADMISSION DETERMINATION FROM [facility] IN [place] FOR PLACEMENT. CM WAITING INFORMATION ON STATUS OF MEDICAID APPLICATION. Clinical Data Programmer: Brock Chavez Appended by Brock Chavez on 04/18/2019 18:09 CORRECTIVE AND MANUAL ARTS THERAPIST: CM FAXED UPDATE TO [facility], . CM SPOKE TO WYATT OF [facility] Food Runner WHO INFORMED CM THAT PT HAS APPLIED FOR SECONDARY MEDICAID "[id number]" AND THERE IS NO DETERMINATION STATUS OF YET. CM WAITING LEVEL 2 DONA SCREENING COMPLETION WELL ADMISSION DETERMINATION FROM [facility] IN [place] FOR PLACEMENT. CM WAITING INFORMATION ON STATUS OF MEDICAID APPLICATION. Clinical Data Programmer: Brock Chavez DCP- Discharge Planning Updated by [id number]: Brock Chavez on 04/15/19 5:[address] Patient Name: CHRISTINE NGUYEN Encounter No: [id number] : 1975 Primary Insurance: MEDICARE A & B Anticipated DC Date: Planned Disposition: Care Home Facility External Planned Provider: [facility] Discharge Planning Comments: CM RECEIVED REQUEST TO MEET WITH PT AND DAUGHTER IN ROOM. CHRISTINE NGUYEN provided verbal consent to discuss current and ongoing needs with/in the presence of: SIMONE GUTHRIE, . QUESTIONS ANSWERED. PT AND DAUGHTER IN AGREEMENT WITH PLACEMENT AT [facility] AND IF DECLINED, WILL GO TO ANY NURSING FACILITY THAT WILL ACCEPT. PT ASKED THAT HOSPITAL FOLLOW UP ON HER MEDICAID APPLICATION THAT WAS STARTED TWO WEEKS AGO BY THE HOSPITAL. CM WAITING LEVEL 2 DONA SCREENING COMPLETION WELL ADMISSION DETERMINATION FROM [facility] IN [place] FOR PLACEMENT. CM TO FOLLOW UP WITH BUSINESS OFFICE TO CHECK ON STATUS OF MEDICAID APPLICATION. Clinical Data Programmer: Brock Chavez DCP- Discharge Planning Updated by [id number]: Brock Chavez on 04/14/19 5:[address] Patient Name: CHRISTINE Hdez PATRICK Encounter No: [id number] : 1975 Primary Insurance: MEDICARE A & B Anticipated DC Date: Planned Disposition: Care Home Facility External Planned Provider: [facility] Discharge Planning Comments: CM RECEIVED NOTICE THAT PT WILL REQUIRE LEVEL 2 DONA SCREENING. PT CANNOT ADMIT TO ANY PRISON IN THE [facility] UNTIL THIS IS DONE. IT MAY TAKE UP TO 9 BUSINESS DAYS TO COMPLETE. CM WAITING LEVEL 2 DONA SCREENING COMPLETION WELL ADMISSION DETERMINATION FROM [facility] IN [place] FOR PLACEMENT. Clinical Data Programmer: Brock Chavez DCP- Discharge Planning Updated by [id number]: Brock Chavez on 04/14/19 11:[address] Patient Name: CHRISTINE NGUYEN Encounter No: [id number] : 1975 Primary Insurance: MEDICARE A & B Anticipated DC Date: Planned Disposition: Care Home Facility External Planned Provider: [facility] Discharge Planning Comments: CM COMPLETED DONA SCREENING FORM, OBTAINED PT AND DOCTORS SIGNATURES. CM FAXED TO [facility] AT [phone] TO REQUEST ASSESSMENT DUE TO DIAGNOSIS OF BIPOLAR. CM WAITING DONA SCREENING COMPLETION WELL ADMISSION DETERMINATION FROM [facility] IN [place] FOR PLACEMENT. Clinical Data Programmer: Brock Chavez DCP- Discharge Planning Updated by [id number]: Brock Chavez on 04/13/19 4:[address] Patient Name: CHRISTINE NGUYEN Admission Status: ER Accout number: [id number] Admission Date: 04-12-2019 : 1975 Admission Diagnosis: Attending: MICHAEL BUCKLEY Current LOS: 1 Anticipated DC Date: Planned Disposition: Care Home Facility Primary Insurance: MEDICARE A & B PLANNED EXTERNAL PROVIDER: [facility] Discharge Planning Comments: CM RECEIVED ORDER FOR "PT HAS NO WHERE TO GO." CM SPOKE TO DERIK BELLA OF [facility], WHO REPORTS HAVING OPEN INVESTIGATION BUT NO APS HOLD ON PATIENT AT THIS TIME. DERIK REPORTS PT HAS PLACEMENT AT [facility] IN [place] AND PROVIDED CONTACT INFORMATION FOR [facility], TELEPHONE [phone]. CM CALLED KASHMIR AND LEFT MESSAGE ASKING FOR RETURN CALL. PT IN ROOM TO DISCUSS DISCHARGE PLANNING AND NEEDS. PT REPORTS SHE WAS LIVING AT FRIENDS HOMES WITH HER FIANCE AND NOW HAVE NO PLACE TO LIVE. PT REPORTS NEEDING ASSISTANCE WITH AMBULATION OVER DISTANCES AND HAS A WHEELCHAIR AT A FRIENDS HOUSE AND HER FAMILY HAS HER SHOWER CHAIR. PT HAS NO OTHER MEDICAL EQUIPENT AND NO EQUIPMENT PROVIDER PREFERENCE. PT HAS NO OUTSIDE SERVICES ASSISTING IN THE HOME. PT DOES NOT KNOW HOW [facility] WAS CALLED BUT SUSPECTS IT WAS A FRIEND OR FAMILY MEMBER TO CALL AND PT REPORTS "THEY HAVE BEEN CALLED LOTS OF TIMES." CM DISCUSSED AVAILABILITY OF HOME HEALTH, REHAB SERVICES AND MEDICAL EQUIPMENT. PT HAS TALKED TO DERIK KAN [facility] AND IS AGREEABLE TO PLACEMENT AT [facility] IN [place]. CHOICE SIGNED. CM FAXED REFERRAL FOR PLACEMENT TO [facility] AT [phone]. CM WILL FOLLOW UP WITH CALL SIDDHARTH [facility] TOMORROW AND CM ANTICIPATES COMPLETING DONA SCREENING SOON POSSIBLE IF IT IS REQUIRED FOR PLACEMENT. Clinical Data Programmer: Brock Chavez DCPIA - Discharge Planning Initial Assessment Updated by [id number]: Brock Chavez on 04/13/19 5:22 pm * Is the patient Alert and Oriented? Yes * How many steps to enter\\exit or inside your home? NONE * PCP DR. NUR * Pharmacy [facility] * Preadmission Environment Home with Family * ADLs Independent * Equipment Shower Chair Wheelchair * Other Equipment NO MEDICAL EQUIPMENT PROVIDER PREFERENCE * List name and contact numbers for known caregivers / representatives who currently or will assist patient after discharge: BONILLA LEONARD'S SISTER, * Verbal permission to speak to the caregivers and representatives has been obtained from the patient. N/A * Community resources currently utilized None * Please name any agencies selected above. NONE * Additional services required to return to the preadmission environment? Yes * Can the patient safely return to the preadmission environment? Yes * Has this patient been hospitalized within the prior 30 days at any hospital? Yes Coverage Notice Reviewer: [id number] Sukumar Juares Notice Issued Date-Time: 04/13/2019 7:55 Notice Type: Medicare Outpatient Observation Notice Notice Delivered To: Patient Relationship to Patient: Match Up Worker Name: Delivery Method: HAND - Hand Delivered Lashonda Days: Prior Verbal Notification: Recipient Understood Notice: Yes Recipient Signature: Yes Med Rec Note Co-signed by Attending: Coverage Notice Comment: PALMER SERVED, EXPLAINED, SIGNED BY PATIENT AND ORIGINAL PROVIDED AND COPY PLACED ON CHART. Reviewer: [id number] - Brock Chavez Notice Issued Date-Time: 04/13/2019 16:20 Notice Type: Patient Choice Letter Notice Delivered To: Patient Relationship to Patient: Match Up Worker Name: Delivery Method: HAND - Hand Delivered Lashonda Days: Prior Verbal Notification: Recipient Understood Notice: Yes Recipient Signature: Yes Med Rec Note Co-signed by Attending: Coverage Notice Comment: [facility] Reviewer: [id number] - Chey Alfaros Notice Issued Date-Time: 04/21/2019 16:13 Notice Type: Patient Choice Letter Notice Delivered To: Patient Relationship to Patient: Self Match Up Worker Name: Delivery Method: HAND - Hand Delivered Lashonda Days: Prior Verbal Notification: Recipient Understood Notice: Yes Recipient Signature: Yes Med Rec Note Co-signed by Attending: Coverage Notice Comment: PATIENT CHOICE FORM FOR SHELTER FACILITY SEARCH FOR ANY FACILITY BETWEEN [place], [place] AND [place], [place]. CONSENT PER PATIENT'S INSTRUCTION. COPY TO THE PATIENT, COPY TO THE CHART, BOTH ORIGINALS Last DP export: 04/25/19 10:02 am Patient Name: CHRISTINE NGUYEN Page [id number] at 1140 All edits/amendments must be made on the electronic document DICTATION DATE: 04/25/19 1140 WALLPAPER INSPECTOR: KAYODE 04/25/19 1140 RPT#: [id number] DC DATE: STATUS: ADM IN [facility] [address] [place] [address] END OF REPORT
[2019-04-25 11:46] VITALS: BP 104/51
--- NOTE | 2019-04-25 15:14 | NUR ---
I have reviewed this patient and I concur with the Shift Assessment completed by the Licensed Practical Nurse today this shift.
[2019-04-25 15:47] VITALS: BP 106/72
[2019-04-25 20:00] VITALS: BP 88/57
[2019-04-25 23:00] VITALS: BP 90/57
[2019-04-26 04:42] VITALS: BP 95/57
[2019-04-26 06:33] LABS: EOSINOPHILS 2.6 % (0-7); IMMATURE GRANULOCYTES 0.6 % (0-5); LYMPHOCYTES 30.7 % (15-50); MCH 30.1 pg (26.0-34.0); MCHC 32.5 g/dL (31.0-37.0); MCV 92.6 fL (80.0-100.0); MEAN PLATELET VOLUME 10.9 fL (7.4-10.4); MONOCYTES 5.5 % (2-11); NEUTROPHILS 59.6 % (40-80); PLATELET COUNT 360 10x3/uL (130-400); RBC 4.32 10x6/uL (4.00-5.40); RDW 12.5 % (11.5-14.5); WBC 9.8 10x3/uL (4.8-10.8)
[2019-04-26 06:46] LABS: CALC OSMOLALITY 278 mosm/kg (275-300); CALCIUM 9.1 mg/dL (8.5-10.1); CARBON DIOXIDE 29.8 mmol/L (21.0-32.0); CHLORIDE - SERUM 101 mmol/L (98-107); CREATININE - SERUM 0.7 mg/dL (0.6-1.3); GLUCOSE 193 mg/dL (74-106); SODIUM 136 mmol/L (136-145); UREA NITROGEN 18 mg/dL (7-18); eGFR NON AFRICAN AMERICAN > 90 mL/min (90-120)
--- NOTE | 2019-04-26 08:57 | MORECARE ---
CASE MANAGEMENT DISCHARGE SUMMARY PATIENT: CHRISTINE NGUYEN UNIT: [id number] ADM DATE: 04/13/19 AGE: 43 : [birth year] SEX: F ROOM/BED: D.2752 AUTHOR: ARTIE,DOC PHYSICIAN: REFERRING PHYSICIAN: MICHAEL BUCKLEY DO DATE OF SERVICE: 04/26/19 Discharge Plan Patient Name: CHRISTINE NGUYEN Facility: [facility]:[place] : 1975 Planned Disposition: Half-Way Facility Anticipated Discharge Date: Discharge Date: Expected LOS: Initial Reviewer: [id number] Initial Review Date: 04/13/2019 Generated: 04/26/19 9:57 am Comments DCP- Discharge Planning Updated by [email or web address]: Farzana Chavez on 04/26/19 7:[address] Patient Name: CHRISTINE NGUYEN Encounter No: [id number] : 1975 Primary Insurance: MEDICARE A & B Anticipated DC Date: Planned Disposition: Half-Way Facility External Planned Provider: FIRST ACCEPTING SKILLED [facility], MEDICARE REHAB BED DCP follow-up note: CM RECEIVED DONA SCREENING APPROVAL FOR UP TO 60 DAYS IN SNF FACILITY. COPY TO CHART. CHART REVIEWED. CM FAXED REFERRALS FOR REHAB TO ENVIRONMENTAL PROTECTION INSPECTOR CARE TO THE FOLLOWING FACILITIES: [facility] (AND ANY OTHER [facility] FACILITY AFFILIATED WITH [facility]), [facility], [facility] (AND ANY OTHER [facility] FACILITY AFFILIATED WITH NURSING CONSULTANTS), [facility], [facility], [facility], [facility], [facility] [place], [facility] AND [facility]. DONA APPROVED FOR 60 DAYS IN SNF FACILITY. THERE IS NO BED AVAILABLE AT [facility]. CM WAITING ON ADMISSION DETERMATION FROM ANY FACILITY FOR REHAB TO FPC CARE PLACEMENT. Farzana Chavez, CASE MANAGEMENT Appended by Farzana Chavez on 04/26/2019 8:54 CEMENT PATCHER: LATE ENTRY FROM 04-25-19 AT APPROXIMATELY 1645 HOURS: CM RECEIVED CALL FROM [facility], THEY HAVE NO [facility] FEMALE BEDS AVAILABLE. CM RECEIVED CALL FROM BRENNA AT [place], THEY ARE CONSIDERING PT FOR ADMISSION, WILL ASSESS PT 04-26-19. CM RECEIVED CALL FROM SYLVIA OF [facility], THEY ARE TENTATIVELY DECLINING PT THEY ARE NOT ABLE TO MEET PT'S NEEDS. CM RECEIVED CALL FROM MARJORIE OF [facility], THEY ARE EVALUATING PT FOR PLACEMENT. DONA APPROVED FOR 60 DAYS OF CONVELESCENT CARE PLACEMENT IN SNF FACILITY. CM WAITING ACCEPTING FACILITY. FARZANA CHAVEZ, CASE MANAGEMENT DCP- Discharge Planning Updated by [id number]: Chey Moreno on 04/21/19 2:[address] CM UPDATED THE PATIENT VIA TELEPHONE OF [place] LOOK[facility] ASSESSMENT AND [facility] DENIAL SECONDARY TO NO BEDS. SHE STATES SHE IS LOOKING FOR AN APARTMENT IN [place]. CM ADVISED SEARCH FOR SKILLED FACILITY MUST PROCEED. SHE STATES WE CAN SEARCH IN [place] ,[place] OR IN BETWEEN. DERIK MEJIA FROM [facility] IS FOLLOWING THIS PATIENT. NADIA MESSINA, HAS BEEN IN COMMUNICATION WITH HIM. NADIA CALLED [phone]. LEFT MESSAGE REQUESTING CALL BACK FOR ASSISTANCE WITH PLACEMENT. DCP- Discharge Planning Updated by [id number]: Chey Moreno on 04/21/19 2:[address] 1535 TELEPHONE CALL TO ERUM HERNANDEZ, SUPERVISOR DETASSELING [employer]W, TO ASCERTAIN IF LEVEL II DONA DECISION HAD BEEN FORWARDED VIA FAX. NO NOTIFICATION AT THIS TIME. DCP- Discharge Planning Updated by [email or web address]: Chey Moreno on 04/21/19 11:[address] TELEPHONE CALL TO [facility] [employer], SPOKE French/ CARMEN. SHE STATES [facility] SHOULD BE RECEIVING A LETTER THIS AFTERNOON REGARDING SECOND LEVEL DECISION. TELEPHONE CALL TO [employer]. SPOKE French/ EDWIN. APPLICATION HAS BEEN SUBMITTED. APPEARS SHE WILL QUALIFY FOR [place] MEDICAID WHICH MAY ACTIVATE April. DCP- Discharge Planning Updated by [id number]: Sylvia Silva on 04/21/19 11:[address] Patient Name: CHRISTINE NGUYEN Admission Status: ER Accout number: [id number] Admission Date: 04-13-2019 : 1975 Admission Diagnosis: Attending: MICHAEL BUCKLEY Current LOS: 8 Anticipated DC Date: Planned Disposition: Half-Way Facility Primary Insurance: MEDICARE A & B Discharge Planning Comments: RECIEVED PHONE CALL FROM PARMJIT AT [facility] AND THEY HAVE DENIED PATIENT PLACEMENT BECAUSE OF NO BED AVAILABLE. ARIANNA DIAZ CM IS WORKING ON OTHER PLACEMENT. Psychological Operations: Sylvia Silva DCP- Discharge Planning Updated by [id number]: Farzana Chavez on 04/18/19 5:[address] Patient Name: CHRISTINE NGUYEN Encounter No: [id number] : 1975 Primary Insurance: MEDICARE A & B Anticipated DC Date: Planned Disposition: Half-Way Facility External Planned Provider: [facility] Discharge Planning Comments: CM RECEIVED CALL FROM SYLVIA GODOY OF [facility], SHE WILL MEET WITH PT FOR THE LEVEL 2 DONA SCREENING TODAY. CM PRINTED DOCUMENTS TAMARILU BEE WILL NEED UPON HER ARRIVAL AND WILL PROVIDE THEM TO HER. CM CALLED WYATT OF [employer], LEFT DETAILED MESSAGE TO FOLLOW UP ON MEDICAID APPLICATION STATUS THAT PT REPORTS WAS STARTED TWO WEEKS AGO BY THE HOSPITAL. CM RECEIVED CALL FROM YVROSE OF [facility], REQUSTING FAX UPDATE BEFORE NOON TOMORROW FOR COMMITTE REVIEW TOMORROW. CM WAITING LEVEL 2 DONA SCREENING COMPLETION WELL ADMISSION DETERMINATION FROM [facility] IN [place] FOR PLACEMENT. CM WAITING INFORMATION ON STATUS OF MEDICAID APPLICATION. Psychological Operations: Farzana Chavez Appended by Farzana Chavez on 04/18/2019 18:09 CEMENT PATCHER: CM FAXED UPDATE TO [facility], . CM SPOKE TO WYATT OF [employer] WHO INFORMED CM THAT PT HAS APPLIED FOR SECONDARY MEDICAID "QMB" AND THERE IS NO DETERMINATION STATUS OF YET. CM WAITING LEVEL 2 DONA SCREENING COMPLETION WELL ADMISSION DETERMINATION FROM [facility] IN [place] FOR PLACEMENT. CM WAITING INFORMATION ON STATUS OF MEDICAID APPLICATION. Psychological Operations: Farzana Chavez DCP- Discharge Planning Updated by [id number]: Farzana Chavez on 04/15/19 5:[address] Patient Name: CHRISTINE NGUYEN Encounter No: [id number] : 1975 Primary Insurance: MEDICARE A & B Anticipated DC Date: Planned Disposition: Half-Way Facility External Planned Provider: [facility] Discharge Planning Comments: CM RECEIVED REQUEST TO MEET WITH PT AND DAUGHTER IN ROOM. CHRISTINE Ketty NGUYEN provided verbal consent to discuss current and ongoing needs with/in the presence of: SIMONE GUTHRIE, . QUESTIONS ANSWERED. PT AND DAUGHTER IN AGREEMENT WITH PLACEMENT AT [facility] AND IF DECLINED, WILL GO TO ANY NURSING FACILITY THAT WILL ACCEPT. PT ASKED THAT HOSPITAL FOLLOW UP ON HER MEDICAID APPLICATION THAT WAS STARTED TWO WEEKS AGO BY THE HOSPITAL. CM WAITING LEVEL 2 DONA SCREENING COMPLETION WELL ADMISSION DETERMINATION FROM [facility] IN [place] FOR PLACEMENT. CM TO FOLLOW UP WITH BUSINESS OFFICE TO CHECK ON STATUS OF MEDICAID APPLICATION. Psychological Operations: Farzana Chavez DCP- Discharge Planning Updated by [id number]: Farzana Chavez on 04/14/19 5:[address] Patient Name: CHRISTINE NGUYEN Encounter No: [id number] : 1975 Primary Insurance: MEDICARE A & B Anticipated DC Date: Planned Disposition: Half-Way Facility External Planned Provider: [facility] Discharge Planning Comments: CM RECEIVED NOTICE THAT PT WILL REQUIRE LEVEL 2 DONA SCREENING. PT CANNOT ADMIT TO ANY [facility] IN THE [facility] UNTIL THIS IS DONE. IT MAY TAKE UP TO 9 BUSINESS DAYS TO COMPLETE. CM WAITING LEVEL 2 DONA SCREENING COMPLETION WELL ADMISSION DETERMINATION FROM [facility] IN [place] FOR PLACEMENT. Psychological Operations: Farzana Chavez DCP- Discharge Planning Updated by [id number]: Farzana Chavez on 04/14/19 11:[address] Patient Name: CHRISTINE NGUYEN Encounter No: [id number] : 1975 Primary Insurance: MEDICARE A & B Anticipated DC Date: Planned Disposition: Half-Way Facility External Planned Provider: [facility] Discharge Planning Comments: CM COMPLETED DONA SCREENING FORM, OBTAINED PT AND DOCTORS SIGNATURES. CM FAXED TO [facility] AT [phone] TO REQUEST ASSESSMENT DUE TO DIAGNOSIS OF BIPOLAR. CM WAITING DONA SCREENING COMPLETION WELL ADMISSION DETERMINATION FROM [facility] IN [place] FOR PLACEMENT. Psychological Operations: Farzana Chavez DCP- Discharge Planning Updated by [id number]: Farzana Chavez on 04/13/19 4:[address] Patient Name: CHRISTINE NGUYEN Admission Status: ER Accout number: [id number] Admission Date: 04-12-2019 : 1975 Admission Diagnosis: Attending: MICHAEL BUCKLEY Current LOS: 1 Anticipated DC Date: Planned Disposition: Half-Way Facility Primary Insurance: MEDICARE A & B PLANNED EXTERNAL PROVIDER: [facility], [place] Discharge Planning Comments: CM RECEIVED ORDER FOR "PT HAS NO WHERE TO GO." CM SPOKE TO DERIK BELLA OF [facility], WHO REPORTS HAVING OPEN INVESTIGATION BUT NO APS HOLD ON PATIENT AT THIS TIME. DERIK REPORTS PT HAS PLACEMENT AT [facility] IN [place] AND PROVIDED CONTACT INFORMATION FOR [facility], TELEPHONE [phone]. CM CALLED KASHM[facility] AND LEFT MESSAGE ASKING FOR RETURN CALL. PT IN ROOM TO DISCUSS DISCHARGE PLANNING AND NEEDS. PT REPORTS SHE WAS LIVING AT FRIENDS HOMES WITH HER FIANCE AND NOW HAVE NO PLACE TO LIVE. PT REPORTS NEEDING ASSISTANCE WITH AMBULATION OVER DISTANCES AND HAS A WHEELCHAIR AT A FRIENDS HOUSE AND HER FAMILY HAS HER SHOWER CHAIR. PT HAS NO OTHER MEDICAL EQUIPENT AND NO EQUIPMENT PROVIDER PREFERENCE. PT HAS NO OUTSIDE SERVICES ASSISTING IN THE HOME. PT DOES NOT KNOW HOW [facility] WAS CALLED BUT SUSPECTS IT WAS A FRIEND OR FAMILY MEMBER TO CALL AND PT REPORTS "THEY HAVE BEEN CALLED LOTS OF TIMES." CM DISCUSSED AVAILABILITY OF HOME HEALTH, REHAB SERVICES AND MEDICAL EQUIPMENT. PT HAS TALKED TO DERIK OF APS AND IS AGREEABLE TO PLACEMENT AT [facility] IN [place]. CHOICE SIGNED. CM FAXED REFERRAL FOR PLACEMENT TO [facility] AT [phone]. CM WILL FOLLOW UP WITH CALL SIDDHARTH [facility] TOMORROW AND CM ANTICIPATES COMPLETING DONA SCREENING SOON POSSIBLE IF IT IS REQUIRED FOR PLACEMENT. Psychological Operations: Farzana Chavez DCPIA - Discharge Planning Initial Assessment Updated by [id number]: Farzana Chavez on 04/13/19 5:22 pm * Is the patient Alert and Oriented? Yes * How many steps to enter\\exit or inside your home? NONE * PCP DR. NUR * Pharmacy [facility] * Preadmission Environment Home with Family * ADLs Independent * Equipment Shower Chair Wheelchair * Other Equipment NO MEDICAL EQUIPMENT PROVIDER PREFERENCE * List name and contact numbers for known caregivers / representatives who currently or will assist patient after discharge: MARIA DOLORES CORONADOBONILLA DAVIS'S SISTER, * Verbal permission to speak to the caregivers and representatives has been obtained from the patient. N/A * Community resources currently utilized None * Please name any agencies selected above. NONE * Additional services required to return to the preadmission environment? Yes * Can the patient safely return to the preadmission environment? Yes * Has this patient been hospitalized within the prior 30 days at any hospital? Yes Coverage Notice Reviewer: [id number] Sukumar Reum Blanquita Notice Issued Date-Time: 04/13/2019 7:55 Notice Type: Medicare Outpatient Observation Notice Notice Delivered To: Patient Relationship to Patient: Marketing Mgr Name: Delivery Method: HAND - Hand Delivered Lash[place] Days: Prior Verbal Notification: Recipient Understood Notice: Yes Recipient Signature: Yes Med Rec Note Co-signed by Attending: Coverage Notice Comment: PALMER SERVED, EXPLAINED, SIGNED BY PATIENT AND ORIGINAL PROVIDED AND COPY PLACED ON CHART. Reviewer: [id number] - Farzana Chavez Notice Issued Date-Time: 04/13/2019 16:20 Notice Type: Patient Choice Letter Notice Delivered To: Patient Relationship to Patient: Marketing Mgr Name: Delivery Method: HAND - Hand Delivered Lash[place] Days: Prior Verbal Notification: Recipient Understood Notice: Yes Recipient Signature: Yes Med Rec Note Co-signed by Attending: Coverage Notice Comment: [facility] Reviewer: [id number] - Chey Moreno Notice Issued Date-Time: 04/21/2019 16:13 Notice Type: Patient Choice Letter Notice Delivered To: Patient Relationship to Patient: Self Marketing Mgr Name: Delivery Method: HAND - Hand Delivered Lashonda Days: Prior Verbal Notification: Recipient Understood Notice: Yes Recipient Signature: Yes Med Rec Note Co-signed by Attending: Coverage Notice Comment: PATIENT CHOICE FORM FOR SNF FACILITY SEARCH FOR ANY FACILITY BETWEEN [place] AND [place], [place]. CONSENT PER PATIENT'S INSTRUCTION. COPY TO THE PATIENT, COPY TO THE CHART, BOTH ORIGINALS Last DP export: 04/25/19 10:40 am Patient Name: CHRISTINE NGUYEN Page [id number] at 0857 All edits/amendments must be made on the electronic document DICTATION DATE: 04/26/19856 BARIATRIC SURGEON: KAYODE 04/26/19866 RPT#: [id number] DC DATE: STATUS: ADM IN [facility] [address] [place] [address] END OF REPORT
[2019-04-26 09:58] VITALS: BP 108/63
[2019-04-26 12:56] VITALS: BP 113/65
--- NOTE | 2019-04-26 13:11 | NUR ---
Nutrition Follow-up: Eating well. Not really drinking Kevin 2/2 texture/consistency. Denies N/V. BM yesterday but reports "a little constipation". Diet: Diabetic, Kevin daily PO intake: 80-100% No new wt; last wt: 174# (04/13) Labs noted: Glu 193 Meds noted: Lantus, Humalog, Protonix -D/c Kevin per pt request. -Need new wt; noted daily wts ordered. -RD following.
--- NOTE | 2019-04-26 17:00 | MORECARE ---
CASE MANAGEMENT DISCHARGE SUMMARY PATIENT: CHRISTINE NGUYEN UNIT: [id number] ADM DATE: 04/13/19 AGE: 43 : [birth year] SEX: F ROOM/BED: D.0914 AUTHOR: ARTIE,ABBEY PHYSICIAN: REFERRING PHYSICIAN: MICHAEL BUCKLEY DO DATE OF SERVICE: 04/26/19 Discharge Plan Patient Name: CHRISTINE NGUYEN Facility: [facility]:[place] : 1975 Planned Disposition: Alf Facility Anticipated Discharge Date: 04/27/19 Discharge Date: Expected LOS: 14 Initial Reviewer: [id number] Initial Review Date: 04/13/2019 Generated: 04/26/19 6:00 pm DCP- Discharge Planning Updated by [id number]: Farzana Chavez on 04/26/19 3:[address] Patient Name: CHRISTINE NGUYEN Encounter No: [id number] : 1975 Primary Insurance: MEDICARE A & B Anticipated DC Date: 04-27-2019 Planned Disposition: Alf Facility External Planned Provider: [facility], MEDICARE REHAB BED DCP follow-up note: CM RECEIVED CALL MAGDA BRITTON OF [facility], , WHO INFORMED CM THAT THEY WILL ACCEPT TOMORROW FOR REHAB. PT NOTIFIED WHO IS IN AGREEMENT WITH DISCHARGE TO [facility] FOR REHAB. IMPORTANT MESSAGE FROM MEDICARE PROVIDED AND EXPLAINED. ELISEO HARDIN NOTIFIED. FOR DISCHARGE, FAX DISCHARGE INFORMATION TO [facility] AT [phone]; NURSE REPORT TO BE CALLED TO [facility] AT [phone]. [facility] TO ARRANGE VAN TRANSPORTATION. Farzana Chavez CASE MANAGEMENT DCP- Discharge Planning Updated by [id number]: Farzana Chavez on 04/26/19 7:[address] Patient Name: CHRISTINE NGUYEN Encounter No: [id number] : 1975 Primary Insurance: MEDICARE A & B Anticipated DC Date: Planned Disposition: Alf Facility External Planned Provider: FIRST ACCEPTING [facility]ED [facility], MED[facility]ARE REH[facility] BED DCP follow-up note: CM RECEIVED DONA SCREENING APPROVAL FOR UP TO 60 DAYS IN INTERMEDIATE FACILITY. COPY TO CHART. CHART REVIEWED. CM FAXED REFERRALS FOR REHAB TO ER NURSE CARE TO THE FOLLOWING FACILITIES: [facility] (AND ANY OTHER [facility] FACILITY AFFILIATED WITH [facility]), [facility], [facility] (AND ANY OTHER [facility] FACILITY AFFILIATED WITH NURSING CONSULTANTS), [facility], [facility], [facility], [facility], [place], [facility], [facility] [place], [facility] AND [facility] DONA APPROVED FOR 60 DAYS IN INTERMEDIATE FACILITY. THERE IS NO BED AVAILABLE AT [facility]. CM WAITING ON ADMISSION DETERMATION FROM ANY FACILITY FOR REHAB TO [facility]PC CARE PLACEMENT. Farzana Chavez, CASE MANAGEMENT Appended by Farzana Chavez on 04/26/2019 8:54 RUSSIAN LANGUAGE PROFESSOR: LATE ENTRY FROM 04-25-19 AT APPROXIMATELY 1645 HOURS: CM RECEIVED CALL FROM [facility], THEY HAVE NO LTC FEMALE BEDS AVAILABLE. CM RECEIVED CALL FROM BRENNA AT [facility], THEY ARE CONSIDERING PT FOR ADMISSION, WILL ASSESS PT 04-26-19. CM RECEIVED CALL FROM SYLVIA OF [facility], THEY ARE TENTATIVELY DECLINING PT THEY ARE NOT ABLE TO MEET PT'S NEEDS. CM RECEIVED CALL FROM MARJORIE OF [facility], THEY ARE EVALUATING PT FOR PLACEMENT. DONA APPROVED FOR 60 DAYS OF CONVELESCENT CARE PLACEMENT IN INTERMEDIATE FACILITY. CM WAITING ACCEPTING FACILITY. FARZANA CHAVEZ, CASE MANAGEMENT DCP- Discharge Planning Updated by [id number]: Chey Moreno on 04/21/19 2:[address] CM UPDATED THE PATIENT VIA TELEPHONE OF PENDING DONA ASSESSMENT AND [facility] DENIAL SECONDARY TO NO BEDS. SHE STATES SHE IS LOOKING FOR AN APARTMENT IN [place]. CM ADVISED SEARCH FOR SKILLED FACILITY MUST PROCEED. SHE STATES WE CAN SEARCH IN [place] ,[place] OR IN BETWEEN. DERIK MEJIA FROM [facility] IS FOLLOWING THIS PATIENT. NADIA MESSINA, HAS BEEN IN COMMUNICATION WITH HIM. NADIA CALLED [phone]. LEFT MESSAGE REQUESTING CALL BACK FOR ASSISTANCE WITH PLACEMENT. DCP- Discharge Planning Updated by [id number]: Chey Moreno on 04/21/19 2:[address] 153 TELEPHONE CALL TO ERUM HERNANDEZ, COLD WORKING SUPERVISOR, TO ASCERTAIN IF LEVEL II DONA DECISION HAD BEEN FORWARDED VIA FAX. NO NOTIFICATION AT THIS TIME. DCP- Discharge Planning Updated by [id number]: Chey Moreno on 04/21/19 11:[address] TELEPHONE CALL TO [employer], SPOKE French/ CARMEN. SHE STATES [facility] SHOULD BE RECEIVING A LETTER THIS AFTERNOON REGARDING SECOND LEVEL DECISION. TELEPHONE CALL TO [facility] [employer]. SPOKE French/ EDWIN. APPLICATION HAS BEEN SUBMITTED. APPEARS SHE WILL QUALIFY FOR B MEDICAID WHICH MAY ACTIVATE April. DCP- Discharge Planning Updated by [id number]: Sylvia Silva on 04/21/19 11:[address] Patient Name: CHRISTINE NGUYEN Admission Status: ER Accout number: [id number] Admission Date: 04-13-2019 : 1975 Admission Diagnosis: Attending: MICHAEL BUCKLEY Current LOS: 8 Anticipated DC Date: Planned Disposition: Alf Facility Primary Insurance: MEDICARE A & B Discharge Planning Comments: RECIEVED PHONE CALL FROM PARMJIT AT [facility] AND THEY HAVE DENIED PATIENT PLACEMENT BECAUSE OF NO BED AVAILABLE. ARIANNA DIAZ CM IS WORKING ON OTHER PLACEMENT. Bin Tripper Operator: Sylvia Silva DCP- Discharge Planning Updated by [id number]: Farzana Chavez on 04/18/19 5:[address] Patient Name: CHRISTINE NGUYEN Encounter No: [id number] : 1975 Primary Insurance: MEDICARE A & B Anticipated DC Date: Planned Disposition: Alf Facility External Planned Provider: [facility] Discharge Planning Comments: CM RECEIVED CALL FROM SYLVIA GODOY OF [employer], SHE WILL MEET WITH PT FOR THE LEVEL 2 DONA SCREENING TODAY. CM PRINTED DOCUMENTS JUANY BEE WILL NEED UPON HER ARRIVAL AND WILL PROVIDE THEM TO HER. CM CALLED WYATT OF [facility] [employer], LEFT DETAILED MESSAGE TO FOLLOW UP ON MEDICAID APPLICATION STATUS THAT PT REPORTS WAS STARTED TWO WEEKS AGO BY THE HOSPITAL. CM RECEIVED CALL FROM YVROSE OF [facility], REQUSTING FAX UPDATE BEFORE NOON TOMORROW FOR COMMITTE REVIEW TOMORROW. CM WAITING LEVEL 2 DONA SCREENING COMPLETION WELL ADMISSION DETERMINATION FROM [facility] IN [place] FOR PLACEMENT. CM WAITING INFORMATION ON STATUS OF MEDICAID APPLICATION. Bin Tripper Operator: Farzana Chavez Appended by Farzana Chavez on 04/18/2019 18:09 RUSSIAN LANGUAGE PROFESSOR: CM FAXED UPDATE TO [facility], . CM SPOKE TO WYATT Goby WHO INFORMED CM THAT PT HAS APPLIED FOR SECONDARY MEDICAID "[id number]" AND THERE IS NO DETERMINATION STATUS OF YET. CM WAITING LEVEL 2 DONA SCREENING COMPLETION WELL ADMISSION DETERMINATION FROM [facility] IN [place] FOR PLACEMENT. CM WAITING INFORMATION ON STATUS OF MEDICAID APPLICATION. Bin Tripper Operator: Farzana Chavez DCP- Discharge Planning Updated by [id number]: Farzana Chavez on 04/15/19 5:[address] Patient Name: CHRISTINE NGUYEN Encounter No: [id number] : 1975 Primary Insurance: MEDICARE A & B Anticipated DC Date: Planned Disposition: Alf Facility External Planned Provider: [facility] Discharge Planning Comments: CM RECEIVED REQUEST TO MEET WITH PT AND DAUGHTER IN ROOM. CHRISTINE NGUYEN provided verbal consent to discuss current and ongoing needs with/in the presence of: SIMONE GUTHRIE, . QUESTIONS ANSWERED. PT AND DAUGHTER IN AGREEMENT WITH PLACEMENT AT [facility] AND IF DECLINED, WILL GO TO ANY NURSING FACILITY THAT WILL ACCEPT. PT ASKED THAT HOSPITAL FOLLOW UP ON HER MEDICAID APPLICATION THAT WAS STARTED TWO WEEKS AGO BY THE HOSPITAL. CM WAITING LEVEL 2 DONA SCREENING COMPLETION WELL ADMISSION DETERMINATION FROM [facility] FOR PLACEMENT. CM TO FOLLOW UP WITH BUSINESS OFFICE TO CHECK ON STATUS OF MEDICAID APPLICATION. Bin Tripper Operator: Farzana Chavez DCP- Discharge Planning Updated by [id number]: Farzana Chavez on 04/14/19 5:[address] Patient Name: CHRISTINE NGUYEN Encounter No: [id number] : 1975 Primary Insurance: MEDICARE A & B Anticipated DC Date: Planned Disposition: Alf Facility External Planned Provider: [facility] Discharge Planning Comments: CM RECEIVED NOTICE THAT PT WILL REQUIRE LEVEL 2 DONA SCREENING. PT CANNOT ADMIT TO ANY HALF-WAY IN THE [facility] UNTIL THIS IS DONE. IT MAY TAKE UP TO 9 BUSINESS DAYS TO COMPLETE. CM WAITING LEVEL 2 DONA SCREENING COMPLETION WELL ADMISSION DETERMINATION FROM [facility] FOR PLACEMENT. Bin Tripper Operator: Farzana Chavez DCP- Discharge Planning Updated by [id number]: Farzana Chavez on 04/14/19 11:[address] Patient Name: CHRISTINE NGUYEN Encounter No: [id number] : 1975 Primary Insurance: MEDICARE A & B Anticipated DC Date: Planned Disposition: Alf Facility External Planned Provider: [facility] Discharge Planning Comments: CM COMPLETED DONA SCREENING FORM, OBTAINED PT AND DOCTORS SIGNATURES. CM FAXED TO [facility] AT [phone] TO REQUEST ASSESSMENT DUE TO DIAGNOSIS OF BIPOLAR. CM WAITING DONA SCREENING COMPLETION WELL ADMISSION DETERMINATION FROM [facility] IN [place] FOR PLACEMENT. Bin Tripper Operator: Farzana Chavez DCP- Discharge Planning Updated by [id number]: Farzana Chavez on 04/13/19 4:[address] Patient Name: CHRISTINE NGUYEN Admission Status: ER Accout number: [id number] Admission Date: 04-12-2019 : 1975 Admission Diagnosis: Attending: MICHAEL BUCKLEY Current LOS: 1 Anticipated DC Date: Planned Disposition: Alf Facility Primary Insurance: MEDICARE A & B PLANNED EXTERNAL PROVIDER: [facility] Discharge Planning Comments: CM RECEIVED ORDER FOR "PT HAS NO WHERE TO GO." CM SPOKE TO DERIK BELLA OF [facility], WHO REPORTS HAVING OPEN INVESTIGATION BUT NO APS HOLD ON PATIENT AT THIS TIME. DERIK REPORTS PT HAS PLACEMENT AT [facility] IN [place] AND PROVIDED CONTACT INFORMATION FOR [facility], TELEPHONE [phone]. CM CALLED K[facility] AND LEFT MESSAGE ASKING FOR RETURN CALL. PT IN ROOM TO DISCUSS DISCHARGE PLANNING AND NEEDS. PT REPORTS SHE WAS LIVING AT FRIENDS HOMES WITH HER FIANCE AND NOW HAVE NO PLACE TO LIVE. PT REPORTS NEEDING ASSISTANCE WITH AMBULATION OVER DISTANCES AND HAS A WHEELCHAIR AT A FRIENDS HOUSE AND HER FAMILY HAS HER SHOWER CHAIR. PT HAS NO OTHER MEDICAL EQUIPENT AND NO EQUIPMENT PROVIDER PREFERENCE. PT HAS NO OUTSIDE SERVICES ASSISTING IN THE HOME. PT DOES NOT KNOW HOW [facility] WAS CALLED BUT SUSPECTS IT WAS A FRIEND OR FAMILY MEMBER TO CALL AND PT REPORTS "THEY HAVE BEEN CALLED LOTS OF TIMES." CM DISCUSSED AVAILABILITY OF HOME HEALTH, REHAB SERVICES AND MEDICAL EQUIPMENT. PT HAS TALKED TO DERIK OF APS AND IS AGREEABLE TO PLACEMENT AT [facility] IN [place]. CHOICE SIGNED. CM FAXED REFERRAL FOR PLACEMENT TO [facility] AT [phone]. CM WILL FOLLOW UP WITH CALL SIDDHARTH [facility] TOMORROW AND CM ANTICIPATES COMPLETING DONA SCREENING SOON POSSIBLE IF IT IS REQUIRED FOR PLACEMENT. Bin Tripper Operator: Farzana Chavez DCPIA - Discharge Planning Initial Assessment Updated by [id number]: Farzana Chavez on 04/13/19 5:22 pm * Is the patient Alert and Oriented? Yes * How many steps to enter\\exit or inside your home? NONE * PCP DR. NUR * Pharmacy [facility] * Preadmission Environment Home with Family * ADLs Independent * Equipment Shower Chair Wheelchair * Other Equipment NO MEDICAL EQUIPMENT PROVIDER PREFERENCE * List name and contact numbers for known caregivers / representatives who currently or will assist patient after discharge: BONILLA LEONARD'S SISTER, * Verbal permission to speak to the caregivers and representatives has been obtained from the patient. N/A * Community resources currently utilized None * Please name any agencies selected above. NONE * Additional services required to return to the preadmission environment? Yes * Can the patient safely return to the preadmission environment? Yes * Has this patient been hospitalized within the prior 30 days at any hospital? Yes Coverage Notice Reviewer: [id number] - Erum Juares Notice Issued Date-Time: 04/13/2019 7:55 Notice Type: Medicare Outpatient Observation Notice Notice Delivered To: Patient Relationship to Patient: Instrumental Music Teacher Name: Delivery Method: HAND - Hand Delivered Lashonda Days: Prior Verbal Notification: Recipient Understood Notice: Yes Recipient Signature: Yes Med Rec Note Co-signed by Attending: Coverage Notice Comment: PALMER SERVED, EXPLAINED, SIGNED BY PATIENT AND ORIGINAL PROVIDED AND COPY PLACED ON CHART. Reviewer: [id number] - Farzana Chavez Notice Issued Date-Time: 04/13/2019 16:20 Notice Type: Patient Choice Letter Notice Delivered To: Patient Relationship to Patient: Instrumental Music Teacher Name: Delivery Method: HAND - Hand Delivered L[place]onda Days: Prior Verbal Notification: Recipient Understood Notice: Yes Recipient Signature: Yes Med Rec Note Co-signed by Attending: Coverage Notice Comment: [facility] Reviewer: [id number] - Chey Moreno Notice Issued Date-Time: 04/21/2019 16:13 Notice Type: Patient Choice Letter Notice Delivered To: Patient Relationship to Patient: Self Instrumental Music Teacher Name: Delivery Method: HAND - Hand Delivered Lashonda Days: Prior Verbal Notification: Recipient Understood Notice: Yes Recipient Signature: Yes Med Rec Note Co-signed by Attending: Coverage Notice Comment: PATIENT CHOICE FORM FOR INTERMEDIATE FACILITY SEARCH FOR ANY FACILITY BETWEEN [place] AND [place]. CONSENT PER PATIENT'S INSTRUCTION. COPY TO THE PATIENT, COPY TO THE CHART, BOTH ORIGINALS Reviewer: [id number] Sukumar Chavez Notice Issued Date-Time: 04/26/2019 16:50 Notice Type: IM Discharge Notice Notice Delivered To: Patient Relationship to Patient: Instrumental Music Teacher Name: Delivery Method: HAND - Hand Delivered Lashonda Days: Prior Verbal Notification: Recipient Understood Notice: Yes Recipient Signature: Yes Med Rec Note Co-signed by Attending: Coverage Notice Comment: Last DP export: 04/26/19 7:57 am Patient Name: CHRISTINE NGUYEN Page [id number] at 1700 All edits/amendments must be made on the electronic document DICTATION DATE: 04/26/19 1700 BROKERAGE PURCHASE AND SALE CLERK: KAYODE 04/26/19 1700 RPT#: [id number] DC DATE: STATUS: ADM IN [facility] [address] [place] [address] END OF REPORT
--- NOTE | 2019-04-26 18:12 | NUR ---
OT NOTE: PT COMPLETED HAIR GROOMING WITH SETUP. PT COMPLETED LUE PROM. PT COMPLETED RUE AROM EXS WHILE SITTING UP IN BED. PT CAUTIONED TO BE MORE GENTLE WHEN SELF RANGE OF LUE. PT WAS PULLING ON LUE THUMB FOR EXTENSION. TERRELL EDUCATED PT ON PROPER AND SAFE SELF ROM TECHNIQUES. NURSING NOTIFIED. [phone] THANK YOU,XANDER BENITEZ
[2019-04-26 18:33] VITALS: BP 92/60
[2019-04-26 20:00] VITALS: BP 114/663
--- NOTE | 2019-04-26 20:30 | NUR ---
EVENING ROUNDS COMPLETED. AFVSS, NO S/S OF DISTRESS. PT C/O HEADACHE, TYLENOL GIVEN. ZANAFLEX PRN ALSO GIVEN FOR MUSCLE SPASM. FSBS 144. LONG ACTING INSULIN GIVEN. PT DENIES ANY FURTHER NEEDS AT THIS TIME. WILL CPOC. CL WITHIN REACH, BED IN LOW, SR UP X2.
[2019-04-27] VITALS: BP 108/70
[2019-04-27 04:00] VITALS: BP 117/70
[2019-04-27 07:28] LABS: CALC OSMOLALITY 276 mosm/kg (275-300); CALCIUM 8.8 mg/dL (8.5-10.1); CARBON DIOXIDE 28.3 mmol/L (21.0-32.0); CHLORIDE - SERUM 100 mmol/L (98-107); CREATININE - SERUM 0.7 mg/dL (0.6-1.3); GLUCOSE 208 mg/dL (74-106); POTASSIUM - SERUM 3.8 mmol/L (3.5-5.1); SODIUM 135 mmol/L (136-145); UREA NITROGEN 14 mg/dL (7-18); eGFR NON AFRICAN AMERICAN > 90 mL/min (90-120)
[2019-04-27 08:24] LABS: BASOPHILS 1.5 % (0-2); EOSINOPHILS 2.6 % (0-7); HEMATOCRIT 40.7 % (36.0-48.0); HEMOGLOBIN 13.3 g/dL (12-16); IMMATURE GRANULOCYTES 0.5 % (0-5); LYMPHOCYTES 28.3 % (15-50); MCH 30.3 pg (26.0-34.0); MCHC 32.7 g/dL (31.0-37.0); MCV 92.7 fL (80.0-100.0); MEAN PLATELET VOLUME 11.3 fL (7.4-10.4); MONOCYTES 5.4 % (2-11); NEUTROPHILS 61.7 % (40-80); PLATELET COUNT 329 10x3/uL (130-400); RBC 4.39 10x6/uL (4.00-5.40); RDW 12.9 % (11.5-14.5); WBC 9.7 10x3/uL (4.8-10.8)
--- NOTE | 2019-04-27 08:26 | MORECARE ---
CASE MANAGEMENT DISCHARGE SUMMARY PATIENT: CHRISTINE NGUYEN UNIT: [id number] ADM DATE: 04/13/19 AGE: 43 : [birth year] SEX: F ROOM/BED: D.3879 AUTHOR: ABBEY ALVA PHYSICIAN: REFERRING PHYSICIAN: MICHAEL BUCKLEY DO DATE OF SERVICE: 04/27/19 Discharge Plan Patient Name: CHRISTINE NGUYEN Facility: [facility]:[place] : 1975 Planned Disposition: Long-Term Facility Anticipated Discharge Date: 04/27/19 Discharge Date: Expected LOS: 14 Initial Reviewer: [id number] Initial Review Date: 04/13/2019 Generated: 04/27/19 9:25 am DCP- Discharge Planning Updated by [id number]: Farzana Chavez on 04/26/19 3:[address] Patient Name: CHRISTINE NGUYEN Encounter No: [id number] : 1975 Primary Insurance: MEDICARE A & B Anticipated DC Date: 04-27-2019 Planned Disposition: Long-Term Facility External Planned Provider: [facility], MEDICARE REHAB BED DCP follow-up note: CM RECEIVED CALL MAGDA BRITTON OF [facility], , WHO INFORMED CM THAT THEY WILL ACCEPT TOMORROW FOR REHAB. PT NOTIFIED WHO IS IN AGREEMENT WITH DISCHARGE TO [facility] FOR REHAB. IMPORTANT MESSAGE FROM MEDICARE PROVIDED AND EXPLAINED. ELISEO HARDIN NOTIFIED. FOR DISCHARGE, FAX DISCHARGE INFORMATION TO [facility] AT [phone]; NURSE REPORT TO BE CALLED TO [facility] AT [phone]. [facility] TO ARRANGE VAN TRANSPORTATION. Farzana Chavez CASE MANAGEMENT DCP- Discharge Planning Updated by [id number]: Farzana Chavez on 04/26/19 7:[address] Patient Name: CHRISTINE NGUYEN Encounter No: [id number] : 1975 Primary Insurance: MEDICARE A & B Anticipated DC Date: Planned Disposition: Long-Term Facility External Planned Provider: [facility], [facility] REH[facility] BED DCP follow-up note: CM RECEIVED DONA SCREENING APPROVAL FOR UP TO 60 DAYS IN NURSING HOME FACILITY. COPY TO CHART. CHART REVIEWED. CM FAXED REFERRALS FOR REHAB TO [facility] TO THE FOLLOWING FACILITIES: [facility] (AND ANY OTHER [facility] FACILITY AFFILIATED WITH [facility] SERVICES), [facility], [facility] (AND ANY OTHER [facility] FACILITY AFFILIATED WITH NURSING CONSULTANTS), [facility], [facility], [facility], [place], [facility], [place], [facility] [place], [facility] AND [facility]. DONA APPROVED FOR 60 DAYS IN NURSING HOME FACILITY. THERE IS NO BED AVAILABLE AT [facility]. CM WAITING ON ADMISSION DETERMATION FROM ANY FACILITY FOR REHAB TO CORRECTION CARE PLACEMENT. Farzana Chavez, CASE MANAGEMENT Appended by Farzana Chavez on 04/26/2019 8:54 COMPOUND SPECIALIST: LATE ENTRY FROM 04-25-19 AT APPROXIMATELY 1645 HOURS: CM RECEIVED CALL FROM [facility], THEY HAVE NO LTC FEMALE BEDS AVAILABLE. CM RECEIVED CALL FROM BRENNA AT [facility], THEY ARE CONSIDERING PT FOR ADMISSION, WILL ASSESS PT 04-26-19. CM RECEIVED CALL FROM SYLVIA OF [facility], THEY ARE TENTATIVELY DECLINING PT THEY ARE NOT ABLE TO MEET PT'S NEEDS. CM RECEIVED CALL FROM MARJORIE OF [facility], THEY ARE EVALUATING PT FOR PLACEMENT. DONA APPROVED FOR 60 DAYS OF CONVELESCENT CARE PLACEMENT IN NURSING HOME FACILITY. CM WAITING ACCEPTING FACILITY. FARZANA CHAVEZ, CASE MANAGEMENT DCP- Discharge Planning Updated by [id number]: Chey Moreno on 04/21/19 2:[address] CM UPDATED THE PATIENT VIA TELEPHONE OF PENDING DONA ASSESSMENT AND [facility] DENIAL SECONDARY TO NO BEDS. SHE STATES SHE IS LOOKING FOR AN APARTMENT IN [place]. CM ADVISED SEARCH FOR SKILLED FACILITY MUST PROCEED. SHE STATES WE CAN SEARCH IN [place] ,[place] OR IN BETWEEN. DERIK MEJIA FROM [employer] [employer] IS FOLLOWING THIS PATIENT. NADIA MESSINA, HAS BEEN IN COMMUNICATION WITH HIM. NADIA CALLED [phone]. LEFT MESSAGE REQUESTING CALL BACK FOR ASSISTANCE WITH PLACEMENT. DCP- Discharge Planning Updated by [id number]: Chey Moreno on 04/21/19 2:[address] 1537 TELEPHONE CALL TO ERUM HERNANDEZ, REGISTERED PUBLIC SURVEYOR, TO ASCERTAIN IF LEVEL II DONA DECISION HAD BEEN FORWARDED VIA FAX. NO NOTIFICATION AT THIS TIME. DCP- Discharge Planning Updated by [id number]: Chey Moreno on 04/21/19 11:[address] TELEPHONE CALL TO [employer], SPOKE French/ CARMEN. SHE STATES [facility] SHOULD BE RECEIVING A LETTER THIS AFTERNOON REGARDING SECOND LEVEL DECISION. TELEPHONE CALL TO [facility] [employer]. SPOKE French/ EDWIN. APPLICATION HAS BEEN SUBMITTED. APPEARS SHE WILL QUALIFY FOR B MEDICAID WHICH MAY ACTIVATE April. DCP- Discharge Planning Updated by [id number]: Sylvia Silva on 04/21/19 11:[address] Patient Name: CHRISTINE NGUYEN Admission Status: ER Accout number: [id number] Admission Date: 04-13-2019 : 1975 Admission Diagnosis: Attending: MICHAEL BUCKLEY Current LOS: 8 Anticipated DC Date: Planned Disposition: Long-Term Facility Primary Insurance: MEDICARE A & B Discharge Planning Comments: RECIEVED PHONE CALL FROM PARMJIT AT [facility] AND THEY HAVE DENIED PATIENT PLACEMENT BECAUSE OF NO BED AVAILABLE. ARIANNA DIAZ CM IS WORKING ON OTHER PLACEMENT. Associate Software Engineer: Sylvia Silva DCP- Discharge Planning Updated by [id number]: Farzana Chavez on 04/18/19 5:[address] Patient Name: CHRISTINE NGUYEN Encounter No: [id number] : 1975 Primary Insurance: MEDICARE A & B Anticipated DC Date: Planned Disposition: Long-Term Facility External Planned Provider: [facility] Discharge Planning Comments: CM RECEIVED CALL FROM SYLVIA GODOY OF [employer], SHE WILL MEET WITH PT FOR THE LEVEL 2 DONA SCREENING TODAY. CM PRINTED DOCUMENTS JUANY BEE WILL NEED UPON HER ARRIVAL AND WILL PROVIDE THEM TO HER. CM CALLED WYATT OF [facility] [employer], LEFT DETAILED MESSAGE TO FOLLOW UP ON MEDICAID APPLICATION STATUS THAT PT REPORTS WAS STARTED TWO WEEKS AGO BY THE HOSPITAL. CM RECEIVED CALL FROM YVROSE OF [facility], REQUSTING FAX UPDATE BEFORE NOON TOMORROW FOR COMMITTE REVIEW TOMORROW. CM WAITING LEVEL 2 DONA SCREENING COMPLETION WELL ADMISSION DETERMINATION FROM [facility] IN [place] FOR PLACEMENT. CM WAITING INFORMATION ON STATUS OF MEDICAID APPLICATION. Associate Software Engineer: Farzana Chavez Appended by Farzana Chavez on 04/18/2019 18:09 COMPOUND SPECIALIST: CM FAXED UPDATE TO [facility], . CM SPOKE TO WYATT [employer] WHO INFORMED CM THAT PT HAS APPLIED FOR SECONDARY MEDICAID "QMB" AND THERE IS NO DETERMINATION STATUS OF YET. CM WAITING LEVEL 2 DONA SCREENING COMPLETION WELL ADMISSION DETERMINATION FROM [facility] IN [place] FOR PLACEMENT. CM WAITING INFORMATION ON STATUS OF MEDICAID APPLICATION. Associate Software Engineer: Farzana Chavez DCP- Discharge Planning Updated by [id number]: Farzana Chavez on 04/15/19 5:[address] Patient Name: CHRISTINE NGUYEN Encounter No: [id number] : 1975 Primary Insurance: MEDICARE A & B Anticipated DC Date: Planned Disposition: Long-Term Facility External Planned Provider: [facility] Discharge Planning Comments: CM RECEIVED REQUEST TO MEET WITH PT AND DAUGHTER IN ROOM. CHRISTINE NGUYEN provided verbal consent to discuss current and ongoing needs with/in the presence of: SIMONE GUTHRIE, . QUESTIONS ANSWERED. PT AND DAUGHTER IN AGREEMENT WITH PLACEMENT AT [facility] AND IF DECLINED, WILL GO TO ANY NURSING FACILITY THAT WILL ACCEPT. PT ASKED THAT HOSPITAL FOLLOW UP ON HER MEDICAID APPLICATION THAT WAS STARTED TWO WEEKS AGO BY THE HOSPITAL. CM WAITING LEVEL 2 DONA SCREENING COMPLETION WELL ADMISSION DETERMINATION FROM [facility] FOR PLACEMENT. CM TO FOLLOW UP WITH BUSINESS OFFICE TO CHECK ON STATUS OF MEDICAID APPLICATION. Associate Software Engineer: Farzana Chavez DCP- Discharge Planning Updated by [id number]: Farzana Chavez on 04/14/19 5:[address] Patient Name: CHRISTINE NGUYEN Encounter No: [id number] : 1975 Primary Insurance: MEDICARE A & B Anticipated DC Date: Planned Disposition: Long-Term Facility External Planned Provider: [facility] Discharge Planning Comments: CM RECEIVED NOTICE THAT PT WILL REQUIRE LEVEL 2 DONA SCREENING. PT CANNOT ADMIT TO ANY SENIOR LIVING IN THE [facility] UNTIL THIS IS DONE. IT MAY TAKE UP TO 9 BUSINESS DAYS TO COMPLETE. CM WAITING LEVEL 2 DONA SCREENING COMPLETION WELL ADMISSION DETERMINATION FROM [facility] FOR PLACEMENT. Associate Software Engineer: Farzana Chavez DCP- Discharge Planning Updated by [id number]: Farzana Chavez on 04/14/19 11:[address] Patient Name: CHRISTINE NGUYEN Encounter No: [id number] : 1975 Primary Insurance: MEDICARE A & B Anticipated DC Date: Planned Disposition: Long-Term Facility External Planned Provider: [facility] Discharge Planning Comments: CM COMPLETED DONA SCREENING FORM, OBTAINED PT AND DOCTORS SIGNATURES. CM FAXED TO [employer] AT [phone] TO REQUEST ASSESSMENT DUE TO DIAGNOSIS OF BIPOLAR. CM WAITING DONA SCREENING COMPLETION WELL ADMISSION DETERMINATION FROM [facility] IN [place] FOR PLACEMENT. Associate Software Engineer: Farzana Chavez DCP- Discharge Planning Updated by [id number]: Farzana Chavez on 04/13/19 4:[address] Patient Name: CHRISTINE NGUYEN Admission Status: ER Accout number: [id number] Admission Date: 04-12-2019 : 1975 Admission Diagnosis: Attending: MICHAEL BUCKLEY Current LOS: 1 Anticipated DC Date: Planned Disposition: Long-Term Facility Primary Insurance: MEDICARE A & B PLANNED EXTERNAL PROVIDER: [facility] Discharge Planning Comments: CM RECEIVED ORDER FOR "PT HAS NO WHERE TO GO." CM SPOKE TO DERIK BELLA OF [facility] [employer], WHO REPORTS HAVING OPEN INVESTIGATION BUT NO APS HOLD ON PATIENT AT THIS TIME. DERIK REPORTS PT HAS PLACEMENT AT [facility] IN [place] AND PROVIDED CONTACT INFORMATION FOR [facility], TELEPHONE [phone]. CM CALLED KASHM[facility] AND LEFT MESSAGE ASKING FOR RETURN CALL. PT IN ROOM TO DISCUSS DISCHARGE PLANNING AND NEEDS. PT REPORTS SHE WAS LIVING AT FRIENDS HOMES WITH HER FIANCE AND NOW HAVE NO PLACE TO LIVE. PT REPORTS NEEDING ASSISTANCE WITH AMBULATION OVER DISTANCES AND HAS A WHEELCHAIR AT A FRIENDS HOUSE AND HER FAMILY HAS HER SHOWER CHAIR. PT HAS NO OTHER MEDICAL EQUIPENT AND NO EQUIPMENT PROVIDER PREFERENCE. PT HAS NO OUTSIDE SERVICES ASSISTING IN THE HOME. PT DOES NOT KNOW HOW [facility] WAS CALLED BUT SUSPECTS IT WAS A FRIEND OR FAMILY MEMBER TO CALL AND PT REPORTS "THEY HAVE BEEN CALLED LOTS OF TIMES." CM DISCUSSED AVAILABILITY OF HOME HEALTH, REHAB SERVICES AND MEDICAL EQUIPMENT. PT HAS TALKED TO DERIK OF APS AND IS AGREEABLE TO PLACEMENT AT [facility] IN [place]. CHOICE SIGNED. CM FAXED REFERRAL FOR PLACEMENT TO [facility] AT [phone]. CM WILL FOLLOW UP WITH CALL SIDDHARTH [facility] TOMORROW AND CM ANTICIPATES COMPLETING DONA SCREENING SOON POSSIBLE IF IT IS REQUIRED FOR PLACEMENT. Associate Software Engineer: Farzana Chavez DCPIA - Discharge Planning Initial Assessment Updated by [id number]: Farzana Chavez on 04/13/19 5:22 pm * Is the patient Alert and Oriented? Yes * How many steps to enter\\exit or inside your home? NONE * PCP DR. NUR * Pharmacy [facility] * Preadmission Environment Home with Family * ADLs Independent * Equipment Shower Chair Wheelchair * Other Equipment NO MEDICAL EQUIPMENT PROVIDER PREFERENCE * List name and contact numbers for known caregivers / representatives who currently or will assist patient after discharge: BONILLA LEONARD'S SISTER, * Verbal permission to speak to the caregivers and representatives has been obtained from the patient. N/A * Community resources currently utilized None * Please name any agencies selected above. NONE * Additional services required to return to the preadmission environment? Yes * Can the patient safely return to the preadmission environment? Yes * Has this patient been hospitalized within the prior 30 days at any hospital? Yes Coverage Notice Reviewer: [id number] - Erum Juares Notice Issued Date-Time: 04/13/2019 7:55 Notice Type: Medicare Outpatient Observation Notice Notice Delivered To: Patient Relationship to Patient: Senior Production Manager Name: Delivery Method: HAND - Hand Delivered Lashonda Days: Prior Verbal Notification: Recipient Understood Notice: Yes Recipient Signature: Yes Med Rec Note Co-signed by Attending: Coverage Notice Comment: PALMER SERVED, EXPLAINED, SIGNED BY PATIENT AND ORIGINAL PROVIDED AND COPY PLACED ON CHART. Reviewer: [id number] - Farzana Chavez Notice Issued Date-Time: 04/13/2019 16:20 Notice Type: Patient Choice Letter Notice Delivered To: Patient Relationship to Patient: Senior Production Manager Name: Delivery Method: HAND - Hand Delivered Lashonda Days: Prior Verbal Notification: Recipient Understood Notice: Yes Recipient Signature: Yes Med Rec Note Co-signed by Attending: Coverage Notice Comment: [facility] Reviewer: [id number] - Chey Moreno Notice Issued Date-Time: 04/21/2019 16:13 Notice Type: Patient Choice Letter Notice Delivered To: Patient Relationship to Patient: Self Senior Production Manager Name: Delivery Method: HAND - Hand Delivered Lashonda Days: Prior Verbal Notification: Recipient Understood Notice: Yes Recipient Signature: Yes Med Rec Note Co-signed by Attending: Coverage Notice Comment: PATIENT CHOICE FORM FOR NURSING HOME FACILITY SEARCH FOR ANY FACILITY BETWEEN [place] AND [place], [place]. CONSENT PER PATIENT'S INSTRUCTION. COPY TO THE PATIENT, COPY TO THE CHART, BOTH ORIGINALS Reviewer: [id number] Sukumar Chavez Notice Issued Date-Time: 04/26/2019 16:50 Notice Type: IM Discharge Notice Notice Delivered To: Patient Relationship to Patient: Senior Production Manager Name: Delivery Method: HAND - Hand Delivered Lashonda Days: Prior Verbal Notification: Recipient Understood Notice: Yes Recipient Signature: Yes Med Rec Note Co-signed by Attending: Coverage Notice Comment: Last DP export: 04/26/19 4:00 pm Patient Name: CHRISTINE NGUYEN Page [id number] at 0826 All edits/amendments must be made on the electronic document DICTATION DATE: 04/27/[address] RECORDER: KAYODE 04/27/19824 RPT#: [id number] DC DATE: STATUS: ADM IN [facility] [address] [place] [address] END OF REPORT
[2019-04-27 09:00] VITALS: BP 112/70
[2019-04-27] MEDS ORDERED: CYMBALTA30 MG PO (10:20)
[2019-04-27] MEDS ORDERED: LEVAQUIN750 MG PO (11:16)
[2019-04-27] MEDS ORDERED: VIBRAMYCIN 100100 MG PO (11:17)
--- NOTE | 2019-04-27 11:29 | MORECARE ---
CASE MANAGEMENT DISCHARGE SUMMARY PATIENT: CHRISTINE NGUYEN UNIT: [id number] ADM DATE: 04/13/19 AGE: 43 : [birth year] SEX: F ROOM/BED: D.3422 AUTHOR: ARTIE,DOC PHYSICIAN: REFERRING PHYSICIAN: MICHAEL BUCKLEY DO DATE OF SERVICE: 04/27/19 Discharge Plan Patient Name: CHRISTINE NGUYEN Facility[facility] : 1975 Planned Disposition: [facility] Facility Anticipated Discharge Date: 04/27/19 Discharge Date: Expected LOS: 14 Initial Reviewer: SAKINA Initial Review Date: 04/13/2019 Generated: 04/27/19 12:29 pm Comments DCP- Discharge Planning Updated by [id number]: Farzana Chavez on 04/27/19 10:[address] Patient Name: CHRISTINE NGUYEN Encounter No: [id number] : 1975 Primary Insurance: MEDICARE A & B Anticipated DC Date: 04-27-2019 Planned Disposition: [facility] Facility External Planned Provider: [facility], MEDICARE REHAB BED DCP follow-up note: CM RECEIVED DISCHARGE ORDERS, CALLED AND NOTIFIED MAGDA BRITTON OF [facility], , THEY WILL LAMINATOR PREFORMS PT TODAY AT 1PM. MAGDA WILL FOLLOW UP WITH [facility]. CM NOTIFIED DERIK BELLA OF [facility] OF PLACEMENT AT [facility]. . PT NOTIFIED WHO IS IN AGREEMENT WITH DISCHARGE TO [facility] FOR REHAB TODAY. CM FAXED DISCHARGE INFORMATION TO [facility] AT [phone]. NURSE REPORT TO BE CALLED TO [facility] AT [phone]. [facility] TO ARRANGE VAN TRANSPORTATION FOR 1:00PM TODAY. TERRA Amato DCP- Discharge Planning Updated by [id number]: Farzana Chavez on 04/26/19 3:[address] Patient Name: CHRISTINE NGUYEN Encounter No: [id number] : 1975 Primary Insurance: MEDICARE A & B Anticipated DC Date: 04-27-2019 Planned Disposition: [facility] Facility External Planned Provider: [facility], MEDICARE REHAB BED DCP follow-up note: CM RECEIVED CALL MAGDA BRITTON OF [facility], , WHO INFORMED CM THAT THEY WILL ACCEPT TOMORROW FOR REHAB. PT NOTIFIED WHO IS IN AGREEMENT WITH DISCHARGE TO [facility] FOR [facility]. IMPORTANT MESSAGE FROM MEDICARE PROVIDED AND EXPLAINED. ELISEO HARDIN NOTIFIED. FOR DISCHARGE, FAX DISCHARGE INFORMATION TO [facility] AT [phone]; NURSE REPORT [facility] AT [phone]. [facility] TO [facility]ANGE VAN TRANSPORTATION. Farzana Chavez, CASE MANAGEMENT DCP- Discharge Planning Updated by [id number]: Farzana Chavez on 04/26/19 7:[address] Patient Name: CHRISTINE NGUYEN Encounter No: [id number] : 1975 Primary Insurance: MEDICARE A & B Anticipated DC Date: Planned Disposition: [facility] Facility External Planned Provider: FIRST ACCEPTING SKILLED [facility], MEDICARE REHAB BED DCP follow-up note: CM RECEIVED DONA SCREENING APPROVAL FOR UP TO 60 DAYS IN [facility] FACILITY. COPY TO CHART. CHART REVIEWED. CM FAXED REFERRALS FOR REHAB TO [facility] TO THE FOLLOWING FACILITIES: [facility] (AND ANY OTHER [facility] FACILITY AFFILIATED WITH [facility]), [facility], [facility] (AND ANY OTHER [facility] FACILITY AFFILIATED WITH NURSING CONSULTANTS), [facility], [facility], [facility], [facility], [place] [facility] [facility], [facility] IN [facility] AND [facility]. DONA APPROVED FOR 60 DAYS IN [facility] FACILITY. THERE IS NO BED AVAILABLE AT [facility]. CM WAITING ON ADMISSION DETERMATION FROM ANY FACILITY FOR REHAB TO [facility] PLACEMENT. Farzana Chavez, CASE MANAGEMENT Appended by Farzana Chavez on 04/26/2019 8:54 LINUX ADMIN: LATE ENTRY FROM 04-25-19 AT APPROXIMATELY 1645 HOURS: CM RECEIVED CALL FROM [facility], THEY HAVE NO [facility] FEMALE BEDS AVAILABLE. CM RECEIVED CALL FROM BRENNA AT [facility], THEY ARE CONSIDERING PT FOR ADMISSION, WILL ASSESS PT 3-3-20. CM RECEIVED CALL FROM SYLVIA OF [facility], THEY ARE TENTATIVELY DECLINING PT THEY ARE NOT ABLE TO MEET PT'S NEEDS. CM RECEIVED CALL FROM MARJORIE OF [facility], THEY ARE EVALUATING PT FOR PLACEMENT. DONA APPROVED FOR 60 DAYS OF CONVELESCENT CARE PLACEMENT IN [facility]TER FACILITY. CM WAITING ACCEPTING FACILITY. FARZANA CHAVEZ, CASE MANAGEMENT DCP- Discharge Planning Updated by [id number]: Chey Moreno on 04/21/19 2:[address] CM UPDATED THE PATIENT VIA TELEPHONE OF PENDING [place] ASSESSMENT AND [facility] DENIAL SECONDARY TO NO BEDS. SHE STATES SHE IS LOOKING FOR AN APARTMENT IN [place]. CM ADVISED SEARCH FOR SKILLED FACILITY MUST PROCEED. SHE STATES WE CAN SEARCH IN [place] ,[place] OR IN BETWEEN. DERIK MEJIA FROM [facility] IS FOLLOWING THIS PATIENT. NADIA MESSINA, HAS BEEN IN COMMUNICATION WITH HIM. NADIA CALLED [phone]. LEFT MESSAGE REQUESTING CALL BACK FOR ASSISTANCE WITH PLACEMENT. DCP- Discharge Planning Updated by [id number]: Chey Moreno on 04/21/19 2:[address] 1535 TELEPHONE CALL TO ERUM HERNANDEZ, BUILDING CONTRACTOR, TO ASCERTAIN IF LEVEL II DONA DECISION HAD BEEN FORWARDED VIA FAX. NO NOTIFICATION AT THIS TIME. DCP- Discharge Planning Updated by [id number]: Chey Moreno on 04/21/19 11:[address] TELEPHONE CALL TO DONA VALLADARES, SPOKE French/ CARMEN. SHE STATES [facility] SHOULD BE RECEIVING A LETTER THIS AFTERNOON REGARDING SECOND LEVEL DECISION. TELEPHONE CALL TO [employer]. SPOKE French/ EDWIN. APPLICATION HAS BEEN SUBMITTED. APPEARS SHE WILL QUALIFY FOR B MEDICAID WHICH MAY ACTIVATE April. DCP- Discharge Planning Updated by [id number]: Sylvia Silva on 04/21/19 11:[address] Patient Name: CHRISTINE NGUYEN Admission Status: ER Accout number: [id number] Admission Date: 04-13-2019 : 1975 Admission Diagnosis: Attending: MICHAEL BUCKLEY Current LOS: 8 Anticipated DC Date: Planned Disposition: [facility] Facility Primary Insurance: MEDICARE A & B Discharge Planning Comments: RECIEVED PHONE CALL FROM PARMJIT AT [facility] AND THEY HAVE DENIED PATIENT PLACEMENT BECAUSE OF NO BED AVAILABLE. CHEY, RN CM IS WORKING ON OTHER PLACEMENT. County Commissioner: Sylvia Silva DCP- Discharge Planning Updated by [id number]: Farzana Chavez on 04/18/19 5:[address] Patient Name: CHRISTINE NGUYEN Encounter No: [id number] : 1975 Primary Insurance: MEDICARE A & B Anticipated DC Date: Planned Disposition: [facility] Facility External Planned Provider: [facility] Discharge Planning Comments: CM RECEIVED CALL FROM SYLVIA GODOY OF [facility], SHE WILL MEET WITH PT FOR THE LEVEL 2 DONA SCREENING TODAY. CM PRINTED DOCUMENTS TAMARILU BEE WILL NEED UPON HER ARRIVAL AND WILL PROVIDE THEM TO HER. CM CALLED WYATT OF [employer], LEFT DETAILED MESSAGE TO FOLLOW UP ON MEDICAID APPLICATION STATUS THAT PT REPORTS WAS STARTED TWO WEEKS AGO BY THE HOSPITAL. CM RECEIVED CALL FROM YVROSE OF [facility], REQUSTING FAX UPDATE BEFORE NOON TOMORROW FOR COMMITTE REVIEW TOMORROW. CM WAITING LEVEL 2 DONA SCREENING COMPLETION WELL ADMISSION DETERMINATION FROM [facility] IN [place] FOR PLACEMENT. CM WAITING INFORMATION ON STATUS OF MEDICAID APPLICATION. County Commissioner: Farzana Chavez Appended by Farzana Chavez on 04/18/2019 18:09 LINUX ADMIN: CM FAXED UPDATE TO [facility], . CM SPOKE TO WYATT OF [employer] WHO INFORMED CM THAT PT HAS APPLIED FOR SECONDARY MEDICAID "[id number]" AND THERE IS NO DETERMINATION STATUS OF YET. CM WAITING LEVEL 2 DONA SCREENING COMPLETION WELL ADMISSION DETERMINATION FROM [facility] IN [place] FOR PLACEMENT. CM WAITING INFORMATION ON STATUS OF MEDICAID APPLICATION. County Commissioner: Farzana Chavez DCP- Discharge Planning Updated by [id number]: Farzana Chavez on 04/15/19 5:[address] Patient Name: CHRISTINE NGUYEN Encounter No: [id number] : 1975 Primary Insurance: MEDICARE A & B Anticipated DC Date: Planned Disposition: [facility] Facility External Planned Provider: [facility] Discharge Planning Comments: CM RECEIVED REQUEST TO MEET WITH PT AND DAUGHTER IN ROOM. CHRISTINE NGUYEN provided verbal consent to discuss current and ongoing needs with/in the presence of: SIMONE GUTHRIE, . QUESTIONS ANSWERED. PT AND DAUGHTER IN AGREEMENT WITH PLACEMENT AT [facility] AND IF DECLINED, WILL GO TO ANY NURSING FACILITY THAT WILL ACCEPT. PT ASKED THAT HOSPITAL FOLLOW UP ON HER MEDICAID APPLICATION THAT WAS STARTED TWO WEEKS AGO BY THE HOSPITAL. CM WAITING LEVEL 2 DONA SCREENING COMPLETION WELL ADMISSION DETERMINATION FROM [facility] IN [place] FOR PLACEMENT. CM TO FOLLOW UP WITH BUSINESS OFFICE TO CHECK ON STATUS OF MEDICAID APPLICATION. County Commissioner: Farzana Chavez DCP- Discharge Planning Updated by [id number]: Farzana Chavez on 04/14/19 5:[address] Patient Name: CHRISTINE NGUYEN Encounter No: [id number] : 1975 Primary Insurance: MEDICARE A & B Anticipated DC Date: Planned Disposition: [facility] Facility External Planned Provider: [facility] Discharge Planning Comments: CM RECEIVED NOTICE THAT PT WILL REQUIRE LEVEL 2 DONA SCREENING. PT CANNOT ADMIT TO ANY PRISON IN [facility] UNTIL THIS IS DONE. IT MAY TAKE UP TO 9 BUSINESS DAYS TO COMPLETE. CM WAITING LEVEL 2 DONA SCREENING COMPLETION WELL ADMISSION DETERMINATION FROM [facility] FOR PLACEMENT. County Commissioner: Farzana Chavez DCP- Discharge Planning Updated by [id number]: Farzana Chavez on 04/14/19 11:[address] Patient Name: CHRISTINE NGUYEN Encounter No: [id number] : 1975 Primary Insurance: MEDICARE A & B Anticipated DC Date: Planned Disposition: [facility] Facility External Planned Provider: [facility] Discharge Planning Comments: CM COMPLETED DONA SCREENING FORM, OBTAINED PT AND [facility] SIGNATURES. CM FAXED TO [employer] AT [phone] TO REQUEST ASSESSMENT DUE TO DIAGNOSIS OF BIPOLAR. CM WAITING DONA SCREENING COMPLETION WELL ADMISSION DETERMINATION FROM [facility] FOR PLACEMENT. County Commissioner: Farazna Chavez DCP- Discharge Planning Updated by [id number]: Farzana Chavez on 04/13/19 4:[address] Patient Name: CHRISTINE NGUYEN Admission Status: ER Accout number: [id number] Admission Date: 04-12-2019 : 1975 Admission Diagnosis: Attending: MICHAEL BUCKLEY Current LOS: 1 Anticipated DC Date: Planned Disposition: [facility] Facility Primary Insurance: MEDICARE A & B PLANNED EXTERNAL PROVIDER: [facility] Discharge Planning Comments: CM RECEIVED ORDER FOR "PT HAS NO WHERE TO GO." CM SPOKE TO DERIK SHAYNE OF [facility], WHO REPORTS HAVING OPEN INVESTIGATION BUT NO APS HOLD ON PATIENT AT THIS TIME. DERIK REPORTS PT HAS PLACEMENT AT [facility] IN [place] AND PROVIDED CONTACT INFORMATION FOR [facility], TELEPHONE [phone]. CM CALLED KASHM[facility] AND LEFT MESSAGE ASKING FOR RETURN CALL. PT IN ROOM TO DISCUSS DISCHARGE PLANNING AND NEEDS. PT REPORTS SHE WAS LIVING AT FRIENDS HOMES WITH HER FIANCE AND NOW HAVE NO PLACE TO LIVE. PT REPORTS NEEDING ASSISTANCE WITH AMBULATION OVER DISTANCES AND HAS A WHEELCHAIR AT A FRIENDS HOUSE AND HER FAMILY HAS HER SHOWER CHAIR. PT HAS NO OTHER MEDICAL EQUIPENT AND NO EQUIPMENT PROVIDER PREFERENCE. PT HAS NO OUTSIDE SERVICES ASSISTING IN THE HOME. PT DOES NOT KNOW HOW ADULT PROTECTIVE SERVICES WAS CALLED BUT SUSPECTS IT WAS A FRIEND OR FAMILY MEMBER TO CALL AND PT REPORTS "THEY HAVE BEEN CALLED LOTS OF TIMES." CM DISCUSSED AVAILABILITY OF HOME HEALTH, REHAB SERVICES AND MEDICAL EQUIPMENT. PT HAS TALKED TO DERIK OF APS AND IS AGREEABLE TO PLACEMENT AT [facility] IN [place]. CHOICE SIGNED. CM FAXED REFERRAL FOR PLACEMENT TO [facility] AT [phone]. CM WILL FOLLOW UP WITH CALL SIDDHARTH [facility] TOMORROW AND CM ANTICIPATES COMPLETING DONA SCREENING SOON POSSIBLE IF IT IS REQUIRED FOR PLACEMENT. County Commissioner: Farzana Chavez DCPIA - Discharge Planning Initial Assessment Updated by [id number]: Farzana Chavez on 04/13/19 5:22 pm * Is the patient Alert and Oriented? Yes * How many steps to enter\\exit or inside your home? NONE * PCP DR. NUR * Pharmacy [facility] * Preadmission Environment Home with Family * ADLs Independent * Equipment Shower Chair Wheelchair * Other Equipment NO MEDICAL EQUIPMENT PROVIDER PREFERENCE * List name and contact numbers for known caregivers / representatives who currently or will assist patient after discharge: MARIA DOLORESBONILLA HORNE'S SISTER, * Verbal permission to speak to the caregivers and representatives has been obtained from the patient. N/A * Community resources currently utilized None * Please name any agencies selected above. NONE * Additional services required to return to the preadmission environment? Yes * Can the patient safely return to the preadmission environment? Yes * Has this patient been hospitalized within the prior 30 days at any hospital? Yes External Providers External Provider: [facility] Next Contact Date: 04/25/2019 Service Request Date: Service Type: Resolution: Reviewer: Comments: Coverage Notice Reviewer: [id number] Sukumar Erum Juares Notice Issued Date-Time: 04/13/2019 7:55 Notice Type: Medicare Outpatient Observation Notice Notice Delivered To: Patient Relationship to Patient: Fish Pitcher Name: Delivery Method: HAND - Hand Delivered [place] Days: Prior Verbal Notification: Recipient Understood Notice: Yes Recipient Signature: Yes Med Rec Note Co-signed by Attending: Coverage Notice Comment: [facility], EXPLAINED, SIGNED BY PATIENT AND ORIGINAL PROVIDED AND COPY PLACED ON CHART. Reviewer: [id number] Sukumar Chavez Notice Issued Date-Time: 04/13/2019 16:20 Notice Type: Patient Choice Letter Notice Delivered To: Patient Relationship to Patient: Fish Pitcher Name: Delivery Method: HAND - Hand Delivered [place] Days: Prior Verbal Notification: Recipient Understood Notice: Yes Recipient Signature: Yes Med Rec Note Co-signed by Attending: Coverage Notice Comment: [facility] Reviewer: [id number] Sukumar Moreno Notice Issued Date-Time: 04/21/2019 16:13 Notice Type: Patient Choice Letter Notice Delivered To: Patient Relationship to Patient: Self Fish Pitcher Name: Delivery Method: HAND - Hand Delivered [place] Days: Prior Verbal Notification: Recipient Understood Notice: Yes Recipient Signature: Yes Med Rec Note Co-signed by Attending: Coverage Notice Comment: PATIENT CHOICE FORM FOR SHELTER FACILITY SEARCH FOR ANY FACILITY BETWEEN [place], [place] AND [place]. CONSENT PER PATIENT'S INSTRUCTION. COPY TO THE PATIENT, COPY TO THE CHART, BOTH ORIGINALS Reviewer: [id number] Sukumar Chavez Notice Issued Date-Time: 04/26/2019 16:50 Notice Type: IM Discharge Notice Notice Delivered To: Patient Relationship to Patient: Fish Pitcher Name: Delivery Method: HAND - Hand Delivered [place] Days: Prior Verbal Notification: Recipient Understood Notice: Yes Recipient Signature: Yes Med Rec Note Co-signed by Attending: Coverage Notice Comment: Last DP export: 04/27/19 7:26 am Patient Name: CHRISTINE NGUYEN Page 99960 at 1129 All edits/amendments must be made on the electronic document DICTATION DATE: 04/27/191128 COW PUNCHER: KAYODE 04/27/191128 RPT#: [id number] DC DATE: STATUS: ADM IN [facility] [address] [place] [address] END OF REPORT
--- NOTE | 2019-04-27 12:54 | NUR ---
REPORT CALLED TO [facility]. DC PAPERWORK GONE OVER AND SIGNED WITH PT. ALL QUESTIONS ANSWERED. PIV REMOVED, CATH TIP FULLY INTACT. ALL VALUBLES PACKED UP AWAITING FACILITY TO LICENSED RETAIL SUPERVISOR PT. WILL CTM
--- NOTE | 2019-04-27 13:03 | NUR ---
[facility] HERE TO TRANSPORT PT TO FACILITY. ALL VALUBLES REMOVED FROM ROOM.
== END 2019-04-27 13:03 | DRG 758 ==
LOC: D.ER 15:51 → OBSVTIME 23:29 → D.M2 23:29
PROVIDERS: Family Medicine; Internal Medicine Nephrology; ADMIT Family Medicine; ATTEND Family Medicine
DX: B37.49 Other urogenital candidiasis (principal); L03.116 Cellulitis of left lower limb; E87.1 Hypo-osmolality and hyponatremia; E11.622 Type 2 diabetes mellitus with other skin ulcer; L89.229 Pressure ulcer of left hip, unspecified stage; E11.65 Type 2 diabetes mellitus with hyperglycemia; K21.9 Gastro-esophageal reflux disease without esophagitis; E87.6 Hypokalemia; F31.9 Bipolar disorder, unspecified; K52.9 Noninfective gastroenteritis and colitis, unspecified; Z86.73 Personal history of transient ischemic attack (TIA), and cerebral infarction without residual deficits